=== PATIENT | male | born 1950 | race Caucasian/White ===

== ENCOUNTER → 2020-11-14 08:27 | Outpatient (BNVA) | payer MEDICARE, SELFPAY | PROVIDERS: PCP Internal Medicine; Visit Provider Orthopaedic Surgery | DX: S72.409A Unspecified fracture of lower end of unspecified femur, initial encounter for closed fracture (principal) | CPT/HCPCS: 99212 ==

== ENCOUNTER 2021-01-27 11:50 | Outpatient (REF) | payer MEDICARE, SELFPAY ==
--- NOTE | ~2021-01-27 | XR_ITS ---
EXAMINATION: XR CHEST CLINICAL INFORMATION: Cough, COPD COMPARISON: Prior chest November 2019, CT chest May 2020 TECHNIQUE: 2 views of the chest were obtained. FINDINGS: Stable postoperative changes consistent with prior upper lobectomy with pleural-parenchymal opacity/thickening better characterized on prior CT May 2020 but unchanged since the prior study. Minimal opacity at the left base, unchanged, compatible with fibrosis/post inflammatory change, stable. Lungs otherwise clear but consistent with underlying COPD. Calcification of the dorsal aorta. Cardiac silhouette normal in size. Postoperative changes noted in the lower cervical spine. XR/XR chest 2V IMPRESSION: Chronic and postoperative changes stable compared to prior chest x-ray November [address] May 2020.
[2021-01-27 13:11] LABS: MANUAL DIFF FLAG NO
[2021-01-27 13:24] LABS: Basophils Percent Auto 0.3 % (0-2); Eosinophils Absolute Auto 0.1 X10*3/uL (0.0-0.4); Eosinophils Percent Auto 1.7 % (0-4); Hematocrit 47.5 % (42-52); Hemoglobin 15.3 g/dl (14.0-18.0); Imm Gran Abs Auto 0.02 X10*3/uL (0.00-0.03); Imm Gran Pct Auto 0.3 % (0.0-0.4); Lymphocytes Percent Auto 13.2 % (20-40); Mean Corpuscular HGB Conc 32.2 g/dl (31.0-36.0); Mean Corpuscular Volume 93.1 fL (80-98); Mean Platelet Volume 11.3 fL (9.4-12.4); Monocytes Absolute Auto 0.6 X10*3/uL (0.1-1.2); Monocytes Percent Auto 7.9 % (2-11); Neutrophils Absolute Auto 5.9 X10*3/uL (2.0-8.3); Neutrophils Percent Auto 76.6 % (45-73); Platelet Count 195 X10*3/uL (160-400); Red Cell Distribution Width 13.2 % (11.0-16.0); White Blood Count 7.7 X10*3/uL (4.8-10.8)
[2021-01-27 13:39] LABS: Alanine Aminotransferase 12 U/L (0-40); Albumin Level 4.3 g/dL (3.5-5.0); Alkaline Phosphatase 37 U/L (39-117); Anion Gap 14 (12-20); Aspartate Amino Transferase 16 U/L (5-37); Bilirubin Total 0.5 mg/dL (0.0-1.0); Blood Urea Nitrogen 22 mg/dL (9-16); C Reactive Protein 0.95 mg/dL (< or = 0.50); Calcium 9.6 mg/dL (8.4-10.2); Carbon Dioxide 27 mmol/L (22-29); Chloride 102 mmol/L (96-108); Estimated Glomerular Filt Rate 52; Glucose Random 112 mg/dL (60-115); Potassium 4.9 mmol/L (3.3-5.1); Sodium 138 mmol/L (135-145); Total Protein 7.4 g/dL (6.5-8.0)
== END 2021-01-27 11:51 | disposition home or self-care (01) ==
LOC: HO.LAB 11:50
PROVIDERS: PCP Internal Medicine; Visit Provider Internal Medicine
DX: R05 Cough (principal); J44.9 Chronic obstructive pulmonary disease, unspecified; N18.9 Chronic kidney disease, unspecified; I73.9 Peripheral vascular disease, unspecified
CPT/HCPCS: 36415; 71046; 80053; 85025; 86140

== ENCOUNTER 2021-05-01 08:12 | Outpatient (REF) | payer MEDICARE, SELFPAY ==
--- NOTE | ~2021-05-01 | XR_ITS ---
EXAMINATION: XR KNEE, LEFT XR FEMUR, LEFT CLINICAL INFORMATION: Follow-up fracture COMPARISON: Radiographs left knee 10/29/2019, 04/30/2019, radiographs left femur 11/27/2017. TECHNIQUE: The left knee is imaged in AP, lateral, and axial patella views. The left femur is imaged in AP x3 and lateral views. There are a total of 7 views. FINDINGS: AP view upper femur suggests possible incomplete vertically oriented hairline fracture lateral aspect proximal femoral neck, 1.8 cm in length. There is horizontally oriented artifact overlying this area and finding could also be related to artifact. The lower femoral shaft fracture has been reduced with compression plate and multiple screws. Hardware is intact. There is mild stable posttraumatic deformity at the fracture site with no change in alignment. There is no destructive process or osteolysis. There has been prior total knee arthroplasty. The hardware is intact. There is no fracture or dislocation or destructive process. Again, there are are extensive calcifications vasculature likely combination of atherosclerotic changes and M?nckeberg medial calcific sclerosis.? XR/XR femur LT 2V IMPRESSION: 1. Fine linear lucency at superior lateral aspect proximal femoral neck representing incomplete fracture versus artifact. This may be further evaluated with formal plain films targeted to the left hip. 2. Old fracture lower femoral shaft. Hardware intact. No change in alignment. No destructive process. 3. Prior left knee arthroplasty. Hardware intact. No osteolysis.
--- NOTE | ~2021-05-01 | XR_ITS ---
EXAMINATION: XR KNEE, LEFT XR FEMUR, LEFT CLINICAL INFORMATION: Follow-up fracture COMPARISON: Radiographs left knee 10/29/2019, 04/30/2019, radiographs left femur 11/27/2017. TECHNIQUE: The left knee is imaged in AP, lateral, and axial patella views. The left femur is imaged in AP x3 and lateral views. There are a total of 7 views. FINDINGS: AP view upper femur suggests possible incomplete vertically oriented hairline fracture lateral aspect proximal femoral neck, 1.8 cm in length. There is horizontally oriented artifact overlying this area and finding could also be related to artifact. The lower femoral shaft fracture has been reduced with compression plate and multiple screws. Hardware is intact. There is mild stable posttraumatic deformity at the fracture site with no change in alignment. There is no destructive process or osteolysis. There has been prior total knee arthroplasty. The hardware is intact. There is no fracture or dislocation or destructive process. Again, there are are extensive calcifications vasculature likely combination of atherosclerotic changes and M?nckeberg medial calcific sclerosis.? XR/XR knee LT 2V IMPRESSION: 1. Fine linear lucency at superior lateral aspect proximal femoral neck representing incomplete fracture versus artifact. This may be further evaluated with formal plain films targeted to the left hip. 2. Old fracture lower femoral shaft. Hardware intact. No change in alignment. No destructive process. 3. Prior left knee arthroplasty. Hardware intact. No osteolysis.
== END 2021-05-01 08:13 | disposition home or self-care (01) ==
LOC: HO.HOSX 08:12
PROVIDERS: Visit Provider Orthopaedic Surgery
DX: I73.9 Peripheral vascular disease, unspecified (principal); M97.8XXA Periprosthetic fracture around other internal prosthetic joint, initial encounter; T84.84XA Pain due to internal orthopedic prosthetic devices, implants and grafts, initial encounter; Z96.652 Presence of left artificial knee joint; Z98.890 Other specified postprocedural states
CPT/HCPCS: 73552; 73560; 99212

== ENCOUNTER 2021-10-02 15:43 | Inpatient (IN) | payer MEDICARE, SELFPAY ==
[2021-10-02] VITALS (7 sets, daily range): BP systolic 83–111; BP diastolic 48–62; PULSE 76–102; RESP 22–28; TEMP 36.5–37.6; O2SAT 76–95; BMI 24.7
--- NOTE | 2021-10-02 | ECG_ITS ---
Test Reason : SOB Blood Pressure : / mmHG Vent. Rate : 090 BPM Atrial Rate : 090 BPM P-R Int : 178 ms QRS Dur : 090 ms QT Int : 334 ms P-R-T Axes : 059 036 044 degrees QTc Int : 408 ms Normal sinus rhythm Intra-ventricular conduction delay Otherwise normal ECG Abnormal ECG When compared with ECG of 27-NOV-2017 14:43, CT interval has decreased T wave amplitude has decreased in Anterior leads Referred By: Rin Nielsen Electronically Signed By:MALLY MILES MD
--- NOTE | ~2021-10-02 | XR_ITS ---
EXAMINATION: PORTABLE CHEST 1 VIEW CLINICAL INFORMATION: sob, copd, RUL lobectomy . COMPARISON: 01/27/2021. TECHNIQUE: Portable frontal view of the chest was obtained. FINDINGS: Extensive chronic appearing reticular markings are again seen. There is volume loss and stable right apical pleural thickening again seen. There is volume loss with retraction of the right mediastinal structures. Coarse reticular markings at the bases appear more prominent from the prior study. Cardiac mediastinal silhouettes within normal limits for size with vascular calcification in the aorta. Cervical spine hardware partially visualized. XR/XR chest 1V IMPRESSION: Although there are extensive chronic appearing changes seen, there are increased reticular markings at both lung bases. Etiology is uncertain. Atypical infectious etiology or mild interstitial edema superimposed on chronic changes could have this appearance and should be clinically correlated.
--- NOTE | ~2021-10-02 | CT_ITS ---
EXAMINATION: CTA CHEST PE STUDY CLINICAL INFORMATION: sob, hypoxic, elevated dimer, hx lung/throat CA COMPARISON: Directly compared to the 05/25/2020 CT scan TECHNIQUE: Prior to contrast administration, noncontrast localization images were obtained. After the administration of 71 mL of Omnipaque 350 nonionic IV contrast, contiguous thin slice helical images were obtained through the thorax. Reformatted MIP images in the coronal and sagittal planes were obtained at the acquisition workstation. This CT examination was performed using dose optimization techniques as appropriate, variously including the following: *Automated exposure control *Adjustment of mA and/or kV according to patient size (this includes techniques or standardized protocols for targeted exams where dose is matched to indication/reason for exam; i.e. extremities or head) *Use of iterative reconstruction technique DLP: 566 mGy-cm. FINDINGS: The bolus timing on this study was acceptable for visualization of the pulmonary arterial tree. There is unfortunately respiratory motion artifact obscuring the distal peripheral branches. There are no intraluminal pulmonary arterial filling defects present to suggest central pulmonary embolism. Although degraded by motion artifact, there is patchy airspace disease in both lung bases which is new from the prior study. This is superimposed on chronic emphysematous changes. Infectious etiology or even aspiration could have a similar appearance superimposed on these chronic changes. Right upper lobe is surgically absent. Pleural calcification seen on the right similar to the prior study. No new abnormal pulmonary nodules or masses are appreciated. No significant hilar or mediastinal adenopathy. Extensive vascular calcification in the aorta and coronary vessels. Small hiatal hernia. There is no evidence of pleural effusion or pneumothorax. The heart is normal in size. No evidence of ventricular septal bowing or right heart strain. Great vessels are normal. Otherwise the mediastinum is unremarkable. There is no pericardial effusion or pericardial thickening. Limited evaluation of the upper abdominal viscera is unremarkable. CT/CT angio chest PE protocol IMPRESSION: No evidence for central pulmonary emboli. There are is chronic appearing postoperative and emphysematous changes. When compared to the 05/25/2020 study there is new bibasilar dependent airspace disease left more so than right. Superimposed infectious etiology or even aspiration on chronic changes could have this appearance. Clinical correlation and follow-up would be recommended. VTE: Negative
--- NOTE | 2021-10-02 16:22 | ED_ITS ---
HPI - SOB/Dyspnea General Chief Complaint: Dyspnea Stated Complaint: COPD Exacerbation Time Seen by Provider: 10/02/21 16:07 Source: patient, family and EMS Mode of arrival: EMS Limitations: no limitations History of Present Illness HPI Narrative: Patient is brought to the emergency room complaining of shortness of breath, generalized malaise, fever, difficulty swallowing. Patient is a poor historian, patient's was helping him give history. Seems that patient has been having difficulty breathing for about a week now, increased cough. Patient has been previously diagnosed with COPD, does not have any inhalers at home. Patient states he schedule an appointment with his PCP today, but could be seen, instructed to come to the emergency room. Patient's states that the patient has been having fever up to 101 F, patient has been taking Tylenol every 4-6 hours for the fever. Patient complaining of shortness of breath, denies chest pain, no abdominal symptoms. According to EMS, when they arrived to the patient's residence, patient's oxygen saturation was 76 on room air. Patient did not receive any medications by EMS. Patient was started on a Venturi mask, 15 L, oxygen saturation improved to 90%. Patient states that he has history of throat cancer, has stents in the esophagus. Patient states that over the last couple of days, he has been trouble swallowing liquids and solids. Related Data Home Medications Medication Instructions Recorded Confirmed apixaban 5 mg tablet (Eliquis) 2.5 mg PO BID 11/14/20 10/02/21 aspirin 81 mg chewable tablet 81 mg PO DAILY 11/14/20 10/02/21 levothyroxine 25 mcg capsule 25 mcg PO DAILY 11/14/20 10/02/21 trazodone 50 mg tablet 50 mg PO BEDTIME 11/14/20 10/02/21 Allergies Allergy/AdvReac Type Severity Reaction Status Date / Time From [facility] Allergy Intermediate Foot drop Uncoded 05/01/21 10:36 as per patient Moxifloxacin HCl in NaCl Allergy Unknown drop foot Uncoded 05/01/21 10:36 Review of Systems Review of Systems: Constitutional : No Weight loss, complaining of fever, chills, fatigue and generalized malaise ENT/Mouth : No Hearing loss, No Ear Pain, No Nasal Congestion, No Sinus Pain, No Hoarseness, No sore throat, No Rhinorrhea, No Swallowing Difficulty Eyes: No Eye Pain, No Swelling, No Redness, No Foreign Body, No Discharge, No Vi christy Changes Cardiovascular : No Chest Pain, no lower extremity edema, no orthopnea, no palpitations Respiratory : Complaining of increased cough with sputum production, wheezing, worsening shortness of breath Gastrointestinal : No Nausea, No Vomiting, No Diarrhea, No Constipation, No abdominal Pain, No Hematochezia, No Melena Genitourinary : no irregular bleeding, No Dysuria, No Urinary Frequency, No Hematuria, No Urinary Incontinence, No Urgency, No Flank Pain, No Urinary Flow Changes, No Hesitancy Musculoskeletal : No joint pain, generalized Myalgias, No Joint Swelling Skin : No Skin Lesions, No rash Neuro : No Weakness, No Numbness, No Paresthesias, No Loss of Consciousness, No Dizziness, No Headache Psych : No Anxiety/Panic, No Depression, No SI/HI/AH/VH, No Social Issues, Heme/Lymph: No Bruising, No Bleeding,No Lymphadenopathy Endocrine : No Polyuria, No Polydipsia, No Temperature Intolerance [facility] Past Medical History Medical History (Updated 10/02/21 @ 19:31 by Rin Nielsen MD) Chronic sinusitis Claudication in peripheral vascular disease Hypercholesterolemia Lung cancer Throat cancer Surgical History H/O carotid endarterectomy H/O neck surgery History of carpal tunnel release History of knee surgery History of total left knee replacement S/P tonsillectomy Family History Family History Father No problems noted. Mother No problems noted. Social History Social History Alcohol intake: never Patient Tobacco Use Status: Former Tobacco user Use of substances other than those prescribed or required for medical reasons: No Advance Directives: No Advance Directives Information Provided: Yes Current occupational status: retired Current occupation: right handed Physical Exam Vital Signs: Vital Signs: Last Vital Signs Temp 98.5 F 10/02/21 19:02 Pulse 102 H 10/02/21 19:15 Resp 28 H 10/02/21 19:02 BP 89/53 L 10/02/21 19:15 Pulse Ox 90 L 11/15/21 19:02 Oxygen Flow Rate 14 10/02/21 16:05 Body Mass Index 24.7 Const: Other: Appearance: Alert. Oriented X3. No acute distress. Eyes: Pupils equal, round and reactive to light. ENT: Pharynx normal. Neck: Normal inspection. Neck supple. No lymph nodes noted. No crepitus CVS: Normal heart rate and rhythm. Pulses normal. Normal S1 and S2 Respiratory: Speaking in full sentences, oxygen saturation 90% on 15 L, decreased breath sounds bilaterally, very tight, minimal wheezing Abdomen: Soft and nontender. No rigidity. No distention. Skin: Skin warm and dry. Normal skin color. Normal skin turgor. Extremities: No lower extremity edema. No Lacerations. No Rash Neuro: Oriented X 3. No motor deficit. No sensory deficit. Moving all extermities. No slurred speech. Course Course Course Narrative: Patient's troponin is elevated. Patient has no chest pain. Troponin elevation likely secondary to prolonged period of hypoxia leading to demand ischemia. After DuoNeb, hour long nebulization treatment, Solu-Medrol, IV fluids, ceftriaxone and azithromycin, patient states that he is feeling much better. Patient is still on a Venturi mask, now saturating at 96%. On physical exam, patient is speaking in full sentences, mild bilateral wheezing, air movement improved. I was informed by the patient's nurse that blood pressure dropped to 89/53. Patient will be receiving more fluids. CTA is negative for PE, however it seems that patient does have patchy airway disease which is new for him. Patient was given ceftriaxone and azithromycin. Overall patient feels much better. I discussed the patient with Dr. Beaulieu, patient being admitted MDM - SOB/Dyspnea Lab Data Result diagrams: 10/02/21 16:40 10/02/21 16:40 Labs: Lab Results 10/02/21 10/02/21 10/02/21 Range/Units 16:40 16:40 16:40 WBC 6.9 (4.8-10.8) X10*3/uL RBC 4.72 (4.60-5.80) X10*6/uL Hgb 14.6 (14.0-18.0) g/dl Hct 43.7 (42.0-52.0) % MCV 92.6 (80.0-98.0) fL MCH 30.9 (27.0-33.0) pg MCHC 33.4 (31.0-36.0) g/dl RDW 13.6 (11.0-16.0) % Plt Count 132 L (160-400) X10*3/uL MPV 11.8 (9.4-12.4) fL Immature Gran % (Auto) 0.1 (0.0-0.4) % Neut % (Auto) 91.8 H (45-73) % Lymph % (Auto) 3.6 L (20-40) % Mcclain % (Auto) 4.5 (2-11) % Eos % (Auto) 0.0 (0-4) % Baso % (Auto) 0.0 (0-2) % Lymph # (Auto) 0.3 L (1.2-4.9) X10*3/uL Mcclain # (Auto) 0.3 (0.1-1.2) X10*3/uL Eos # (Auto) 0.0 (0.0-0.4) X10*3/uL Baso # (Auto) 0.0 (0.0-0.2) X10*3/uL Abs Immat Gran (auto) 0.01 (0.00-0.03) X10*3/uL Absolute Neuts (auto) 6.3 (2.0-8.3) x10*3/uL Absolute Nucleated RBC 0.000 (0.0-0.012) X10*3/uL Nucleated RBC % (auto) 0.0 (0.0-0.2) /100WBC Smear Tech's Comments VERIFIED D-Dimer NG/ML VBG pH (7.32-7.43) VBG pCO2 mmHg VBG pO2 mmHg VBG HCO3 (22-26) mmol/L VBG O2 Saturation % VBG Base Excess mmol/L Sodium 135 (135-145) mmol/L Potassium 4.2 (3.3-5.1) mmol/L Chloride 104 (96-108) mmol/L Carbon Dioxide 21 L (22-29) mmol/L Anion Gap 14 (12-20) BUN 23 H (9-16) mg/dL Creatinine 1.14 (0.5-1.4) mg/dL Estim Creat Clear Calc 72.0 Estimated GFR > 60 Random Glucose 137 H (60-115) mg/dL Lactic Acid 1.8 (0.5-2.0) mmol/L Calcium 7.7 L D (8.4-10.2) mg/dL Total Bilirubin 0.4 (0.0-1.0) mg/dL Direct Bilirubin 0.2 (0.0-0.5) mg/dL AST 26 D (5-37) U/L ALT 19 (0-40) U/L Alkaline Phosphatase 34 L (39-117) U/L Troponin I High Sens (<3.5-35.0) ng/L B-Natriuretic Peptide (<100) pg/mL Total Protein 6.1 L (6.5-8.0) g/dL Albumin 3.3 L D (3.5-5.0) g/dL COVID-19 (ROXY) (Negative) COVID-19 Clin Com 10/02/21 10/02/21 10/02/21 Range/Units 16:40 16:40 16:40 WBC (4.8-10.8) X10*3/uL RBC (4.60-5.80) X10*6/uL Hgb (14.0-18.0) g/dl Hct (42.0-52.0) % MCV (80.0-98.0) fL MCH (27.0-33.0) pg MCHC (31.0-36.0) g/dl RDW (11.0-16.0) % Plt Count (160-400) X10*3/uL MPV (9.4-12.4) fL Immature Gran % (Auto) (0.0-0.4) % Neut % (Auto) (45-73) % Lymph % (Auto) (20-40) % Mcclain % (Auto) (2-11) % Eos % (Auto) (0-4) % Baso % (Auto) (0-2) % Lymph # (Auto) (1.2-4.9) X10*3/uL Mcclain # (Auto) (0.1-1.2) X10*3/uL Eos # (Auto) (0.0-0.4) X10*3/uL Baso # (Auto) (0.0-0.2) X10*3/uL Abs Immat Gran (auto) (0.00-0.03) X10*3/uL Absolute Neuts (auto) (2.0-8.3) x10*3/uL Absolute Nucleated RBC (0.0-0.012) X10*3/uL Nucleated RBC % (auto) (0.0-0.2) /100WBC Smear Tech's Comments D-Dimer 624 NG/ML VBG pH (7.32-7.43) VBG pCO2 mmHg VBG pO2 mmHg VBG HCO3 (22-26) mmol/L VBG O2 Saturation % VBG Base Excess mmol/L Sodium (135-145) mmol/L Potassium (3.3-5.1) mmol/L Chloride (96-108) mmol/L Carbon Dioxide (22-29) mmol/L Anion Gap (12-20) BUN (9-16) mg/dL Creatinine (0.5-1.4) mg/dL Estim Creat Clear Calc Estimated GFR Random Glucose (60-115) mg/dL Lactic Acid (0.5-2.0) mmol/L Calcium (8.4-10.2) mg/dL Total Bilirubin (0.0-1.0) mg/dL Direct Bilirubin (0.0-0.5) mg/dL AST (5-37) U/L ALT (0-40) U/L Alkaline Phosphatase (39-117) U/L Troponin I High Sens 42.7 H* (<3.5-35.0) ng/L B-Natriuretic Peptide 61 (<100) pg/mL Total Protein (6.5-8.0) g/dL Albumin (3.5-5.0) g/dL COVID-19 (ROXY) Negative (Negative) COVID-19 Clin Com See Note 10/02/21 Range/Units 16:51 WBC (4.8-10.8) X10*3/uL RBC (4.60-5.80) X10*6/uL Hgb (14.0-18.0) g/dl Hct (42.0-52.0) % MCV (80.0-98.0) fL MCH (27.0-33.0) pg MCHC (31.0-36.0) g/dl RDW (11.0-16.0) % Plt Count (160-400) X10*3/uL MPV (9.4-12.4) fL Immature Gran % (Auto) (0.0-0.4) % Neut % (Auto) (45-73) % Lymph % (Auto) (20-40) % Mcclain % (Auto) (2-11) % Eos % (Auto) (0-4) % Baso % (Auto) (0-2) % Lymph # (Auto) (1.2-4.9) X10*3/uL Mcclain # (Auto) (0.1-1.2) X10*3/uL Eos # (Auto) (0.0-0.4) X10*3/uL Baso # (Auto) (0.0-0.2) X10*3/uL Abs Immat Gran (auto) (0.00-0.03) X10*3/uL Absolute Neuts (auto) (2.0-8.3) x10*3/uL Absolute Nucleated RBC (0.0-0.012) X10*3/uL Nucleated RBC % (auto) (0.0-0.2) /100WBC Smear Tech's Comments D-Dimer NG/ML VBG pH 7.45 H (7.32-7.43) VBG pCO2 25 mmHg VBG pO2 73 mmHg VBG HCO3 18 L (22-26) mmol/L VBG O2 Saturation 94.0 % VBG Base Excess -3.9 mmol/L Sodium (135-145) mmol/L Potassium (3.3-5.1) mmol/L Chloride (96-108) mmol/L Carbon Dioxide (22-29) mmol/L Anion Gap (12-20) BUN (9-16) mg/dL Creatinine (0.5-1.4) mg/dL Estim Creat Clear Calc Estimated GFR Random Glucose (60-115) mg/dL Lactic Acid (0.5-2.0) mmol/L Calcium (8.4-10.2) mg/dL Total Bilirubin (0.0-1.0) mg/dL Direct Bilirubin (0.0-0.5) mg/dL AST (5-37) U/L ALT (0-40) U/L Alkaline Phosphatase (39-117) U/L Troponin I High Sens (<3.5-35.0) ng/L B-Natriuretic Peptide (<100) pg/mL Total Protein (6.5-8.0) g/dL Albumin (3.5-5.0) g/dL COVID-19 (ROXY) (Negative) COVID-19 Clin Com Imaging Data Chest x-ray: Radiologist's impression: FINDINGS: Extensive chronic appearing reticular markings are again seen. There is volume loss and stable right apical pleural thickening again seen. There is volume loss with retraction of the right mediastinal structures. Coarse reticular markings at the bases appear more prominent from the prior study. Cardiac mediastinal silhouettes within normal limits for size with vascular calcification in the aorta. Cervical spine hardware partially visualized. XR/XR chest 1V IMPRESSION: Although there are extensive chronic appearing changes seen, there are increased reticular markings at both lung bases. Etiology is uncertain. Atypical infectious etiology or mild interstitial edema superimposed on chronic changes could have this appearance and should be clinically correlated. CTA for PE: Radiologist's impression: FINDINGS: The bolus timing on this study was acceptable for visualization of the pulmonary arterial tree. There is unfortunately respiratory motion artifact obscuring the distal peripheral branches. There are no intraluminal pulmonary arterial filling defects present to suggest central pulmonary embolism. Although degraded by motion artifact, there is patchy airspace disease in both lung bases which is new from the prior study. This is superimposed on chronic emphysematous changes. Infectious etiology or even aspiration could have a similar appearance superimposed on these chronic changes. Right upper lobe is surgically absent. Pleural calcification seen on the right similar to the prior study. No new abnormal pulmonary nodules or masses are appreciated. No significant hilar or mediastinal adenopathy. Extensive vascular calcification in the aorta and coronary vessels. Small hiatal hernia. There is no evidence of pleural effusion or pneumothorax. The heart is normal in size. No evidence of ventricular septal bowing or right heart strain. Great vessels are normal. Otherwise the mediastinum is unremarkable.? There is no pericardial effusion or pericardial thickening. Limited evaluation of the upper abdominal viscera is unremarkable. CT/CT angio chest PE protocol IMPRESSION: No evidence for central pulmonary emboli. There are is chronic appearing postoperative and emphysematous changes. When compared to the 05/25/2020 study there is new bibasilar dependent airspace disease left more so than right. Superimposed infectious etiology or even aspiration on chronic changes could have this appearance. Clinical correlation and follow-up would be recommended. ? VTE: Negative ECG Data Attestation: I personally reviewed and interpreted this ECG as follows: (Normal sinus rhythm, 90, ST segment depression or elevation, no T-wave inversion, QTC 408) Critical Care Time Critical Care Time Critical Care Time: Yes Total Critical Care Time: 60 Attestation: 60 minutes were spent in direct patient care and stabilization. Discharge Plan Discharge Clinical Impression: COPD exacerbation, Pneumonia, Decreased oral intake Patient Disposition: Admitted As Inpatient
[2021-10-02] MEDS: methylPREDNISolone Sod Succ 125 MG/2 ML VIAL IVPUSH (16:28)
[2021-10-02] MEDS: Magnesium Sulfate/H2O 2 GM/50 ML PIGGYBACK IV (16:28)
[2021-10-02] MEDS: 0.9 % Sodium Chloride 1,000 ML 999 ML IVCONT ×4 (16:29→19:15)
[2021-10-02] MEDS: Albuterol/Iprat 2.5/0.5MG 3 ML AMPUL.NEB INHALE (16:41)
[2021-10-02] MEDS: Albuterol Sulfate (0.083%) 2.5 MG/3 ML VIAL.NEB 10 MG INHALE (16:41)
[2021-10-02 16:50] LABS: Hemoglobin 14.6 g/dl (14.0-18.0); MANUAL DIFF FLAG SCAN; Mean Corpuscular Volume 92.6 fL (80.0-98.0); PLT CLUMP 1; SCAN SMEAR FLAG 1
[2021-10-02 16:52] LABS: Hematocrit 43.7 % (42.0-52.0); Imm Gran Abs Auto 0.01 X10*3/uL (0.00-0.03); Imm Gran Pct Auto 0.1 % (0.0-0.4); Lymphocytes Absolute Auto 0.3 X10*3/uL (1.2-4.9); Lymphocytes Percent Auto 3.6 % (20-40); Mean Corpuscular HGB Conc 33.4 g/dl (31.0-36.0); Mean Corpuscular Hemoglobin 30.9 pg (27.0-33.0); Mean Platelet Volume 11.8 fL (9.4-12.4); Monocytes Absolute Auto 0.3 X10*3/uL (0.1-1.2); Monocytes Percent Auto 4.5 % (2-11); Neutrophils Absolute Auto 6.3 x10*3/uL (2.0-8.3); Neutrophils Percent Auto 91.8 % (45-73); Red Blood Count 4.72 X10*6/uL (4.60-5.80); Red Cell Distribution Width 13.6 % (11.0-16.0); White Blood Count 6.9 X10*3/uL (4.8-10.8)
[2021-10-02] MEDS: cefTRIAXone sodium 1 GM in 0.9 % Sodium Chloride 50 ML IV (16:53)
[2021-10-02 16:57] LABS: VBG Base Excess -3.9 mmol/L; VBG HCO3 18 mmol/L (22-26); VBG pCO2 25 mmHg; VBG pH 7.45 (7.32-7.43); VBG pO2 73 mmHg
[2021-10-02 16:58] LABS: Venous Blood Gas Refer to POC result
[2021-10-02 16:58] LABS: D Dimer 624 NG/ML; Lactic Acid 1.8 mmol/L (0.5-2.0)
[2021-10-02 17:02] LABS: Alanine Aminotransferase 19 U/L (0-40); Albumin Level 3.3 g/dL (3.5-5.0); Alkaline Phosphatase 34 U/L (39-117); Anion Gap 14 (12-20); Aspartate Amino Transferase 26 U/L (5-37); Bilirubin Direct 0.2 mg/dL (0.0-0.5); Bilirubin Total 0.4 mg/dL (0.0-1.0); Blood Urea Nitrogen 23 mg/dL (9-16); Calcium 7.7 mg/dL (8.4-10.2); Carbon Dioxide 21 mmol/L (22-29); Chloride 104 mmol/L (96-108); Estimated Glomerular Filt Rate > 60; Glucose Random 137 mg/dL (60-115); Potassium 4.2 mmol/L (3.3-5.1); Sodium 135 mmol/L (135-145); Total Protein 6.1 g/dL (6.5-8.0)
--- NOTE | 2021-10-02 17:11 | PHA.MEDREC ---
Pharmacy Consult ? Medication Reconciliation Pharmacy has completed the medication reconciliation.
[2021-10-02 17:14] LABS: COVID-19 Test Negative (Negative); IDNOW Serial# 9DD0AD1C
[2021-10-02 17:24] LABS: B Type Natriuretic Peptide 61 pg/mL (<100); Platelet Count 132 X10*3/uL (160-400); SLIDE REVIEW VERIFIED; Troponin-I High Sensitivity 42.7 ng/L (<3.5-35.0)
[2021-10-02] MEDS: Azithromycin 500 MG in 0.9 % Sodium Chloride 250 ML 125 MG IV (17:47)
[2021-10-02] MEDS: iohexoL 350 MG/ML 100 ML INFUS..BTL IV (18:08)
--- NOTE | 2021-10-02 19:19 | PC.NURSE ---
Addendum entered by Lizet Orozco 10/02/21 19:22: Pt provided with bedside urinal to obtain urine sample. Original Note: This RN at bedside. Pt found resting in bed with at bedside. Pt noted to be hypotensive @ 80/50, notified. Orders for 2 lis of NS obtained and hung per JAN. Pt on a venti mask @ 14 li and 55%, denies SOB, weakness, fatigue, dizziness @ this time. Call noel within reach, awaiting CT results, continue to monitor.
--- NOTE | 2021-10-02 19:22 | PC.NURSE ---
at bedside for eval.
--- NOTE | 2021-10-02 21:25 | PC.NURSE ---
PT found resting in bed, rapid respirations 24-30/min, and skin diaphoretic. PT woken up and presents with no complaints of SOB. BP remains hypotensive with fluids completely infused. Provider notified of low BP.
--- NOTE | 2021-10-02 22:35 | PC.NURSE ---
PT was asked if he could provide urine sample but stated that he still could not urinate.
--- NOTE | 2021-10-02 23:31 | PM.IMHP ---
History of Present Illness Date of Service: 10/02/21 Chief Complaint: SOB 71-year-old male with past medical history of COPD, hypothyroidism, history of lung cancer post right lobectomy, throat cancer, 0 presents to the hospital with complaints of shortness of breath cough, sputum production. Patient reports that his symptoms are about 3-4 days ago, associated with subjective fevers and chills, denies any nausea or vomiting, no chest pain, no abdominal pain, no diarrhea constipation, no urinary symptoms and no lower extremity edema. To the ED patient found to have temp of 98.5?, heart rate of 102, respiratory rate of 28, blood pressure of 88/53 that responded well to fluids, satting 90% on Venturi mask 4.6, hemoglobin of 13, pH of 7.45, BUN of 19, calcium 7.1, troponin of 42 that peaked to 75, with no chest pain, Normal sinus rhythm, with some nonspecific changes CT angiogram shows no evidence of PE, chronic appearing postoperative and emphysematous changes, there is a new bibasilar are dependent airspace disease left more so than right, superimposed infectious etiology or even aspiration on chronic changes could have this appearance. Patient will be admitted for further management Review of Systems Review of Systems: Yes all other systems are reviewed and are negative [facility] Medical History Chronic sinusitis Claudication in peripheral vascular disease Hypercholesterolemia Lung cancer Throat cancer Family History Father No problems noted. Mother No problems noted. Surgical History H/O carotid endarterectomy H/O neck surgery History of carpal tunnel release History of knee surgery History of total left knee replacement S/P tonsillectomy Social History Alcohol intake: never Patient Tobacco Use Status: Former Tobacco user Use of substances other than those prescribed or required for medical reasons: No Advance Directives: No Advance Directives Information Provided: Yes Current occupational status: retired Current occupation: right handed Meds Allergies Allergy/AdvReac Type Severity Reaction Status Date / Time moxifloxacin Allergy Numbness Verified 10/03/21 00:20 From [facility] Allergy Intermediate Foot drop Uncoded 05/01/21 10:36 as per patient Moxifloxacin HCl in NaCl Allergy Unknown drop foot Uncoded 05/01/21 10:36 Active Medications: Current Medications Pharmacy Consult (Consult Rx Perform Med Rec) 1 each MISCELLANE ONCE PRN PRN Reason: Consult order Home Medications Medication Instructions Recorded Confirmed Last Taken Type apixaban 5 mg tablet (Eliquis) 2.5 mg PO BID 11/14/20 10/02/21 09/30/21 History aspirin 81 mg chewable tablet 81 mg PO DAILY 11/14/20 10/02/21 09/30/21 History levothyroxine 25 mcg capsule 25 mcg PO DAILY 11/14/20 10/02/21 09/30/21 History trazodone 50 mg tablet 50 mg PO BEDTIME 11/14/20 10/02/21 09/30/21 History Physical Exam Vital Signs and Narrative: Vital Signs: Last Vital Signs Temp 97.7 F 10/02/21 22:32 Pulse 83 10/02/21 22:32 Resp 25 H 10/02/21 22:32 BP 108/59 L 10/02/21 22:32 Pulse Ox 90 L 10/02/21 22:32 Oxygen Flow Rate 14 10/02/21 16:05 Body Mass Index 24.7 Const: General: cooperative and no acute distress Orientation/consciousness: patient oriented x3 Eyes: General: appearance normal, both eyes and all related structures Pupils: Equal, round and reactive pupils present Resp: Other: Expiratory wheezing, rhonchi bilaterally Effort & Inspection: normal respiratory effort Auscultation: clear to auscultation bilaterally Cardio: Rate: regular rate Rhythm: regular rhythm GI: Palpation (GI): Soft to palpation Auscultation: normal bowel sounds Skin: General skin exam: no rashes or lesions noted Neuro: General: patient oriented x3 Cranial nerves: Yes Equal, round and reactive pupils present Cognition (Neuro): normal cognition Extrem: General: Yes normal to inspection and Yes no pedal edema Results Labs CBC and Chem 7: 10/03/21 04:09 10/03/21 04:09 Labs: Laboratory Results - last 24 hr 10/02/21 10/02/21 10/02/21 16:40 16:40 16:40 MCV 92.6 MCH 30.9 MCHC 33.4 RDW 13.6 Plt Count 132 L MPV 11.8 Immature Gran % (Auto) 0.1 Neut % (Auto) 91.8 H Lymph % (Auto) 3.6 L [place] % (Auto) 4.5 Eos % (Auto) 0.0 Baso % (Auto) 0.0 Lymph # (Auto) 0.3 L [place] # (Auto) 0.3 Eos # (Auto) 0.0 Baso # (Auto) 0.0 Abs Immat Gran (auto) 0.01 Absolute Neuts (auto) 6.3 Absolute Nucleated RBC 0.000 Nucleated RBC % (auto) 0.0 Smear Tech's Comments VERIFIED D-Dimer VBG pH VBG pCO2 VBG pO2 VBG HCO3 VBG O2 Saturation VBG Base Excess Anion Gap 14 Estim Creat Clear Calc 72.0 Estimated GFR > 60 Random Glucose 137 H Lactic Acid 1.8 Calcium 7.7 L D Total Bilirubin 0.4 Direct Bilirubin 0.2 AST 26 D ALT 19 Alkaline Phosphatase 34 L Troponin I High Sens B-Natriuretic Peptide Total Protein 6.1 L Albumin 3.3 L D COVID-19 (ROXY) [employer] 10/02/21 10/02/21 10/02/21 16:40 16:40 16:40 MCV MCH MCHC RDW Plt Count MPV Immature Gran % (Auto) Neut % (Auto) Lymph % (Auto) [place] % (Auto) Eos % (Auto) Baso % (Auto) Lymph # (Auto) [place] # (Auto) Eos # (Auto) Baso # (Auto) Abs Immat Gran (auto) Absolute Neuts (auto) Absolute Nucleated RBC Nucleated RBC % (auto) Smear Tech's Comments D-Dimer 624 VBG pH VBG pCO2 VBG pO2 VBG HCO3 VBG O2 Saturation VBG Base Excess Anion Gap Estim Creat Clear Calc Estimated GFR Random Glucose Lactic Acid Calcium Total Bilirubin Direct Bilirubin AST ALT Alkaline Phosphatase Troponin I High Sens 42.7 H* B-Natriuretic Peptide 61 Total Protein Albumin COVID-19 (ROXY) Negative [employer] See Note 10/02/21 16:51 MCV MCH MCHC RDW Plt Count MPV Immature Gran % (Auto) Neut % (Auto) Lymph % (Auto) [place] % (Auto) Eos % (Auto) Baso % (Auto) Lymph # (Auto) [place] # (Auto) Eos # (Auto) Baso # (Auto) Abs Immat Gran (auto) Absolute Neuts (auto) Absolute Nucleated RBC Nucleated RBC % (auto) Smear Tech's Comments D-Dimer VBG pH 7.45 H VBG pCO2 25 VBG pO2 73 VBG HCO3 18 L VBG O2 Saturation 94.0 VBG Base Excess -3.9 Anion Gap Estim Creat Clear Calc Estimated GFR Random Glucose Lactic Acid Calcium Total Bilirubin Direct Bilirubin AST ALT Alkaline Phosphatase Troponin I High Sens B-Natriuretic Peptide Total Protein Albumin COVID-19 (ROXY) COVID-19 Clin Com ECG Interpretation: Normal sinus rhythm with nonspecific ST T wave changes Imaging Radiologist's Impressions: Impressions Chest X-Ray 10/02/21 16:19 IMPRESSION: Although there are extensive chronic appearing changes seen, there are increased reticular markings at both lung bases. Etiology is uncertain. Atypical infectious etiology or mild interstitial edema superimposed on chronic changes could have this appearance and should be clinically correlated. Chest CTA 10/02/21 17:07 IMPRESSION: No evidence for central pulmonary emboli. There are is chronic appearing postoperative and emphysematous changes. When compared to the 05/25/2020 study there is new bibasilar dependent airspace disease left more so than right. Superimposed infectious etiology or even aspiration on chronic changes could have this appearance. Clinical correlation and follow-up would be recommended. VTE: Negative Assessment and Plan (1) COPD exacerbation: Status: Acute (2) Pneumonia: Status: Acute (3) Sepsis: Status: Acute (4) Acute respiratory failure with hypoxia: Status: Acute 71-year-old male with past medical history of COPD who presents to the hospital with complaints of shortness of breath, cough, sputum production found to have pneumonia as well as COPD exacerbation # sepsis - secondary to COPD exacerbation as well as pneumonia - has leukopenia, tachycardia, tachypnea - started on IV antibiotics - follow cultures - normal lactic acid # acute hypoxic respiratory failure - multifactor secondary to COPD as well as pneumonia - requiring 55% venturi mask - no evidence of COVID infection - will obtain respiratory viral panel - titrate oxygen down as tolerated # COPD exacerbation - dyspnea, cough, increased sputum production - complicated by pneumonia - was her patient on Solu-Medrol 40 IV b.i.d., DuoNeb p.r.n. and scheduled - monitor respiratory status # pneumonia - has bilateral pneumonia - COVID-19 negative - will start on IV antibiotic - follow-up cultures -RVP panel pending - will obtain strep and Legionella antigens # hypothyroidism - continue levothyroxine # history of lung and throat cancer - patient on apixaban with no other indication than the above - denies any history of VTE, and no history of irregular rhythm - will continue apixaban DVT prophylaxis: Apixaban Quality Stroke Does the patient have a stroke diagnosis?: No VTE Prior VTE?: No VTE Risk Level:: Medical - moderate - high VTE Device Contraindication: Treatment Not Indicated VTE Drug Contraindication: N/A - Med Ordered
[2021-10-03] VITALS (13 sets, daily range): BP systolic 91–159; BP diastolic 48–85; PULSE 64–86; RESP 18–28; TEMP 36.2–36.6; O2SAT 87–96
[2021-10-03] MEDS: 0.9 % Sodium Chloride 500 ML IV (00:03)
--- NOTE | 2021-10-03 01:14 | PC.NURSE ---
This RN called pharmacy regarding pt's solumedrol dose and requested to re-time dose based off of last dose given.
[2021-10-03] MEDS: 0.9 % Sodium Chloride Flush 3 ML SYRINGE IVFLUSH ×4 (01:21→20:30)
[2021-10-03] MEDS: traZODone HCL 50 MG TABLET PO ×2 (01:21→20:30)
[2021-10-03] MEDS: Apixaban 2.5 MG TABLET PO ×3 (01:21→20:30)
[2021-10-03 01:45] LABS: Troponin-I High Sensitivity 75.4 ng/L (<3.5-35.0)
--- NOTE | 2021-10-03 03:51 | PC.NURSE ---
PT continues to hypotensive on the monitor. Provider made aware. Hospitalist advised to continue to monitor. Troponin elevated on repeat lab. Provider ordered a third trop to be drawn.
[2021-10-03 04:23] LABS: Hematocrit 40.2 % (42.0-52.0); Imm Gran Abs Auto 0.02 X10*3/uL (0.00-0.03); Imm Gran Pct Auto 0.4 % (0.0-0.4); Lymphocytes Absolute Auto 0.3 X10*3/uL (1.2-4.9); Lymphocytes Percent Auto 5.4 % (20-40); MANUAL DIFF FLAG SCAN; Mean Corpuscular HGB Conc 32.3 g/dl (31.0-36.0); Mean Corpuscular Hemoglobin 30.9 pg (27.0-33.0); Mean Corpuscular Volume 95.5 fL (80.0-98.0); Monocytes Absolute Auto 0.1 X10*3/uL (0.1-1.2); Monocytes Percent Auto 2.2 % (2-11); Neutrophils Absolute Auto 4.3 x10*3/uL (2.0-8.3); Platelet Count 122 X10*3/uL (160-400); Red Blood Count 4.21 X10*6/uL (4.60-5.80); SCAN SMEAR FLAG 1; White Blood Count 4.6 X10*3/uL (4.8-10.8)
[2021-10-03 04:25] LABS: SLIDE REVIEW VERIFIED
[2021-10-03 04:55] LABS: Anion Gap 11 (12-20); Blood Urea Nitrogen 19 mg/dL (9-16); Calcium 7.1 mg/dL (8.4-10.2); Carbon Dioxide 21 mmol/L (22-29); Chloride 111 mmol/L (96-108); Creatinine Clr Calc Pharmacy 85.5; Estimated Glomerular Filt Rate > 60; Glucose Random 220 mg/dL (60-115); Potassium 4.7 mmol/L (3.3-5.1); Sodium 138 mmol/L (135-145)
[2021-10-03 05:03] LABS: Troponin-I High Sensitivity 64.2 ng/L (<3.5-35.0)
--- NOTE | 2021-10-03 05:44 | PC.NURSE ---
PT is sleeping in bed, in NAD. VSS at this time. Results for troponin came back, hospitalist notified.
[2021-10-03] MEDS: Levothyroxine Sodium 25 MCG TABLET PO (05:46)
[2021-10-03] MEDS: methylPREDNISolone Sod Succ 40 MG/ML VIAL IVPUSH ×2 (05:47→16:39)
[2021-10-03 07:11] LABS: Appearance Urine CLEAR; Color Urine YELLOW; Glucose Urine UA 100 MG/DL (NEG); Leukocyte Esterase Urine NEG (NEG); Nitrite Urine NEG (NEG); PH 5.5 (5.0-8.0); UACC Culture Trigger NO; Urine Blood NEG (NEG); Urine Ketones NEG (NEG); Urine Protein 1+ MG/DL (NEG-TRACE)
[2021-10-03 07:38] LABS: Bacteria Urine 1+ /LPF; RBC Urine 0 /HPF (0); WBC Urine 0-2 /HPF (0-4)
[2021-10-03] MEDS: Aspirin 81 MG TAB.CHEW PO (08:48)
[2021-10-03 09:39] LABS: Adenovirus PCR Not Detected (Not Detect.); Bordetella parapertussis PCR Not Detected (Not Detect.); Bordetella pertussis PCR Not Detected (Not Detect.); Chlamydia pneumoniae PCR Not Detected (Not Detect.); Coronavirus 229E PCR Not Detected (Not Detect.); Coronavirus HKU1 PCR Not Detected (Not Detect.); Coronavirus NL63 PCR Not Detected (Not Detect.); Coronavirus OC43 PCR Not Detected (Not Detect.); Human metapneumovirus PCR Not Detected (Not Detect.); Influenza A PCR Not Detected (Not Detect.); Influenza B PCR Not Detected (Not Detect.); Mycoplasma pneumoniae PCR Not Detected (Not Detect.); Parainfluenza 1 PCR Not Detected (Not Detect.); Parainfluenza 2 PCR Not Detected (Not Detect.); Parainfluenza 3 PCR Not Detected (Not Detect.); Parainfluenza 4 PCR Not Detected (Not Detect.); RSV PCR Not Detected (Not Detect.); Rhino/Enterovirus PCR Not Detected (Not Detect.); SARS-CoV-2 PCR Not Detected (Not Detect.)
--- NOTE | 2021-10-03 10:55 | MHC.CM.PN ---
PATIENT LIVES WITH HIS SPOUSE. HE IS UNSURE IF HE HAS A HCP AND AGREES TO ASSIGN ONE WHILE HERE. AGENT IS JOSE PATIENT IS 100% DISABLED. HE USES [facility] AT [facility]. HE HAS BEEN COVID VACCINATED IN JANUARY AND FEBRUARY 2021 BUT DOES NOT REMEMBER THE DATES. HE REPORTS THAT ONCE HE IS FEELING BETTER, HE WILL GET HIS BOOSTER SHOT HE WAS VACCINATED AGAINST THE FLU LAST WEEK. NO NO VNA IN THE HOME. AND PATIENT ARE REQUESTING A PULMONARY CONSULT. EXPRESSES FRUSTRATION OVER ASKING MULTIPLE PROVIDERS FOR HELP AND GETTING NOWHERE IMM 10/03 IN CHART
[2021-10-03] MEDS: Albuterol/Iprat 2.5/0.5MG 3 ML AMPUL.NEB INHALE ×2 (11:30→19:56)
--- NOTE | 2021-10-03 14:00 | CA_ITS ---
Transthoracic Echocardiogram Patient (Last, First, Middle): Daniel Encarnacion D Gender: Male Date of : 1950 Age: 71 Procedure Date: 10/03/2021 Procedure Type: Transthoracic Echocardiogram Location: ER Height: 190.5 cm Weight: 89.81 kg BSA: 2.19 m2 Heart Rate: bpm BP: 148 / 68 mmHg Powerhouse Oiler: Referring MD: Richardson Pederson MD Symptoms: elevated troponins Study Quality: Fair ECG Rhythm: Sinus Conclusions: - Normal left ventricular size and systolic function. - There is no evidence of regional wall motion abnormalities. - Normal right ventricular cavity size and systolic function. - There is mild aortic valve stenosis. The peak aortic velocity is 2.63 m/s. The mean gradient is 16 mmHg. The aortic valve area is 1.20 cm2. Findings Left Ventricle Normal left ventricular size and systolic function. There is mildly increased left ventricular wall thickness. The visually estimated ejection fraction is between 65-70%. There is no evidence of regional wall motion abnormalities. Abnormal diastolic function is noted. Spectral Doppler is indicative of an impaired relaxation filling pattern. E/E prime ratio is between 8 and 15 consistent with indeterminate filling pressures. Right Ventricle Normal right ventricular cavity size and systolic function. Atria The left atrium is normal in size. Aortic Valve The aortic valve was not well visualized. There is mild aortic valve stenosis. The peak aortic velocity is 2.63 m/s. The mean gradient is 16 mmHg. The aortic valve area is 1.20 cm2. There is no aortic valve regurgitation. Mitral Valve Normal mitral valve structure and function. There is no mitral valve regurgitation. There is no mitral valve stenosis. Pulmonic Valve The pulmonic valve was not well visualized. Tricuspid Valve Normal tricuspid valve structure. There is trace tricuspid valve regurgitation. Tricuspid regurgitation envelope is inadequate for calculation of right ventricular systolic pressure. Indeterminate right atrial pressure. Great Vessels All visible segments of the aorta are normal in size. The pulmonary artery was not well visualized. Venous The inferior vena cava was not well visualized. Pericardium/Pleural There is no evidence of pericardial effusion. Prior Study Comparison No prior study available for comparison. Measurements 2D Linear Measurements IVSd: 1.25 0.6-0.9/0.6-1.0 cm LVIDd: 4.21 3.9-5.3/4.2-5.9 cm LVIDd Index: 1.92 2.4-3.2/2.2-3.1 cm/m2 LVIDs: 2.72 2.0-3.6 cm LVPWd: 1.27 0.7-1.1 cm Ao Root: 3.20 2.1-3.5 cm LA Diam: 3.20 2.7-3.8/3.0-4.0 cm LAIDs Index: 1.46 1.5-2.3 cm/m2 LV Mass: 239.41 67-162/88-224 g LV Mass Index: 109.32 43-95/49-115 g/m2 LVOT Diam: 2.00 3.0+(-)1.3 cm 2D Systolic Function EF 4C: 67.70 >55% EF 2C: 67.10 >55% EF BiP: 66.10 >55% Mitral Valve MV Pk E: 0.58 MV PK A: 0.90 MV Decel Time: 160.00 E/A: 0.60 E'Lateral: 6.42 E'Medial: 5.55 E/E' Med: 10.40 E/E' Lat: 9.00 PHT: 47.00 MVA PHT: 4.68 Decel [place]: 3.62 Aortic Valve AoV Pk Ken: 2.63 AoV Mn Ken: 1.87 AoV VTI: 0.67 AoV Pk Grad: 28.00 Aov Mn Grad: 16.00 DAVID Cont.VTI: 1.20 LVOT LVOT Pk Ken: 0.75 LVOT Mn Ken: 0.53 LVOT VTI: 0.26 LVOT Pk Grad: 2.00 LVOT Mn Grad: 1.00 LVOT Diam: 2.00 LVOT Area: 3.14 Diastolic Function MV Pk E: 0.58 MV Pk A: 0.90 E/A: 0.60 E'Medial: 5.55 E/E' Med: 10.40 E' Laterial: 6.42 E/E' Lat: 9.00 Tricuspid Valve TR Pk Ken: 1.47 TR Pk Grad: 9.00 Great Vessels Aorta Ao Root-2D: 3.20 2.0-3.7 cm Ao Asc: 3.30 2.1-3.4 cm Pulmonary Valve PV Pk Ken: 0.79 Peak PV Grad: 2.00 Updated in Other Vendor System with Status of Final Gregory Mercer MD electronically signed on 10/03/2021 4:12:30 PM with status of Final
--- NOTE | 2021-10-03 14:06 | HO.PM.IMPN ---
Subjective Subjective Date of Service: 10/03/21 Interval History: Sepsis, acute hypoxemic respiratory failure. Review of Systems Shortness of breath seems to be slowly improving Has cough Denies any nausea vomiting or abdominal pain or fever. Physical Exam Vital Signs: Vital Signs: Last Vital Signs Temp 97.7 F 10/02/21 22:32 Pulse 77 10/03/21 14:02 Resp 22 H 10/03/21 14:02 BP 134/70 10/03/21 14:02 Pulse Ox 94 10/03/21 14:02 Oxygen Flow Rate 14 10/02/21 16:05 Body Mass Index 24.7 Constitutional: Alert.? Oriented X3.? No acute distress.? Eyes: Pupils equal, round and reactive to light. CVS: Normal heart rate and rhythm.? Pulses normal. Normal S1 and S2 Respiratory:? Speaking in full sentences, on oxygen, decreased breath sounds bilaterally, very tight, minimal wheezing Abdomen: Soft and nontender. No rigidity. No distention. Skin: Skin warm and dry.? Normal skin color.? Normal skin turgor. Extremities: No lower extremity edema.? No Lacerations. No Rash Neuro: Oriented X 3.? No motor deficit.? No sensory deficit. Moving all extermities. No slurred speech. Objective Data Active Medications Acetaminophen (Acetaminophen 325 Mg Tablet) 650 mg PO Q6H PRN PRN Reason: Pain, Mild (Pain Scale 1-3) Albuterol/Ipratropium (Albuterol/Iprat 2.5/0.5mg 3 Ml Ampul.Neb) 3 ml INHALE RQ4H PRN PRN Reason: Shortness of Breath/Wheezing Albuterol/Ipratropium (Albuterol/Iprat 2.5/0.5mg 3 Ml Ampul.Neb) 3 ml INHALE RQ4H WHILE AWAKE [facility] Last Admin: 10/03/21 11:30 Dose: 3 ml Documented by: PASCUAL Apixaban (Apixaban 2.5 Mg Tablet) 2.5 mg PO BID [facility] Last Admin: 10/03/21 08:48 Dose: 2.5 mg Documented by: TRAVIS Aspirin (Aspirin 81 Mg Tab.Chew) 81 mg PO DAILY [facility] Last Admin: 10/03/21 08:48 Dose: 81 mg Documented by: TRAVIS Docusate Sodium (Docusate Sodium 100 Mg Capsule) 100 mg PO DAILY PRN PRN Reason: Constipation Ceftriaxone Sodium 1 gm/ (Sodium Chloride) 50 mls @ 100 mls/hr IV Q24H [facility] Azithromycin 500 mg/ Sodium (Chloride) 250 mls @ 125 mls/hr IV Q24H [facility] Levothyroxine Sodium (Levothyroxine Sodium 25 Mcg Tablet) 25 mcg PO DAILY@0600 [facility] Last Admin: 10/03/21 05:46 Dose: 25 mcg Documented by: STORMY Methylprednisolone Sodium Succinate (Methylprednisolone Sod Succ 40 Mg/Ml Vial) 40 mg IVPUSH Q12H [facility] Last Admin: 10/03/21 05:47 Dose: 40 mg Documented by: STORMY Ondansetron HCl (Ondansetron Hcl 4 Mg/2 Ml Vial) 4 mg IVPUSH Q8H PRN PRN Reason: Nausea and Vomiting Pharmacy Consult (Consult Rx Perform Med Rec) 1 each MISCELLANE ONCE PRN PRN Reason: Consult order Sodium Chloride (0.9 % Sodium Chloride Flush 3 Ml Syringe) 3 ml IVFLUSH QSHIFT [facility] Last Admin: 10/03/21 08:54 Dose: 3 ml Documented by: TRAVIS Trazodone HCl (Trazodone Hcl 50 Mg Tablet) 50 mg PO BEDTIME [facility] Last Admin: 10/03/21 01:21 Dose: 50 mg Documented by: STORMY Labs CBC & Chem 7: 10/03/21 04:09 10/03/21 04:09 Labs: Laboratory Results - last 24 hr 10/02/21 10/02/21 10/02/21 16:40 16:40 16:40 MCV 92.6 MCH 30.9 MCHC 33.4 RDW 13.6 Plt Count 132 L MPV 11.8 Immature Gran % (Auto) 0.1 Neut % (Auto) 91.8 H Lymph % (Auto) 3.6 L [place] % (Auto) 4.5 Eos % (Auto) 0.0 Baso % (Auto) 0.0 Lymph # (Auto) 0.3 L [place] # (Auto) 0.3 Eos # (Auto) 0.0 Baso # (Auto) 0.0 Abs Immat Gran (auto) 0.01 Absolute Neuts (auto) 6.3 Absolute Nucleated RBC 0.000 Nucleated RBC % (auto) 0.0 Smear Tech's Comments VERIFIED D-Dimer VBG pH VBG pCO2 VBG pO2 VBG HCO3 VBG O2 Saturation VBG Base Excess Anion Gap 14 Estim Creat Clear Calc 72.0 Estimated GFR > 60 Random Glucose 137 H Lactic Acid 1.8 Calcium 7.7 L D Total Bilirubin 0.4 Direct Bilirubin 0.2 AST 26 D ALT 19 Alkaline Phosphatase 34 L Troponin I High Sens B-Natriuretic Peptide Total Protein 6.1 L Albumin 3.3 L D Urine Color Urine Appearance Urine pH Ur Specific [place] Urine Protein Urine Glucose (UA) Urine Ketones Urine Blood Urine Nitrite Ur Leukocyte Esterase Urine RBC Urine WBC Ur Squamous Epith Cells Urine Bacteria Respiratory Panel [place] Adenovirus (Rapid PCR) B.pert (TEM-PCR) B.parapertussis DNA PCR C. pneumoniae DNA (PCR) Coronavirus OC43 (PCR) Coronavirus HKU1 (PCR) Coronavirus 229E (PCR) COVID-19 (ROXY) COVID-19 Clin Com Coronavirus NL63 (PCR) Human Metapneumovir PCR Influenza A (RT-PCR) Influenza B (RT-PCR) M. pneumoniae (PCR) Parainfluenza 1 (PCR) Parainfluenza 2 (PCR) Parainfluenza 3 (PCR) Parainfluenza 4 (PCR) RSV (PCR) Entero/Rhino (PCR) SARS-CoV-2 RNA (RT-PCR) 10/02/21 10/02/21 10/02/21 16:40 16:40 16:40 MCV MCH MCHC RDW Plt Count MPV Immature Gran % (Auto) Neut % (Auto) Lymph % (Auto) [place] % (Auto) Eos % (Auto) Baso % (Auto) Lymph # (Auto) [place] # (Auto) Eos # (Auto) Baso # (Auto) Abs Immat Gran (auto) Absolute Neuts (auto) Absolute Nucleated RBC Nucleated RBC % (auto) Smear Tech's Comments D-Dimer 624 VBG pH VBG pCO2 VBG pO2 VBG HCO3 VBG O2 Saturation VBG Base Excess Anion Gap Estim Creat Clear Calc Estimated GFR Random Glucose Lactic Acid Calcium Total Bilirubin Direct Bilirubin AST ALT Alkaline Phosphatase Troponin I High Sens 42.7 H* B-Natriuretic Peptide 61 Total Protein Albumin Urine Color Urine Appearance Urine pH Ur Specific [place] Urine Protein Urine Glucose (UA) Urine Ketones Urine Blood Urine Nitrite Ur Leukocyte Esterase Urine RBC Urine WBC Ur Squamous Epith Cells Urine Bacteria Respiratory Panel [place] Adenovirus (Rapid PCR) B.pert (TEM-PCR) B.parapertussis DNA PCR C. pneumoniae DNA (PCR) Coronavirus OC43 (PCR) Coronavirus HKU1 (PCR) Coronavirus 229E (PCR) COVID-19 (ROXY) Negative COVID-19 Clin Com See Note Coronavirus NL63 (PCR) Human Metapneumovir PCR Influenza A (RT-PCR) Influenza B (RT-PCR) M. pneumoniae (PCR) Parainfluenza 1 (PCR) Parainfluenza 2 (PCR) Parainfluenza 3 (PCR) Parainfluenza 4 (PCR) RSV (PCR) Entero/Rhino (PCR) SARS-CoV-2 RNA (RT-PCR) 10/02/21 10/03/21 10/03/21 16:51 01:10 04:09 MCV 95.5 MCH 30.9 MCHC 32.3 RDW 14.0 Plt Count 122 L MPV 12.0 Immature Gran % (Auto) 0.4 Neut % (Auto) 92.0 H Lymph % (Auto) 5.4 L [place] % (Auto) 2.2 Eos % (Auto) 0.0 Baso % (Auto) 0.0 Lymph # (Auto) 0.3 L [place] # (Auto) 0.1 Eos # (Auto) 0.0 Baso # (Auto) 0.0 Abs Immat Gran (auto) 0.02 Absolute Neuts (auto) 4.3 Absolute Nucleated RBC 0.000 Nucleated RBC % (auto) 0.0 Smear Tech's Comments VERIFIED D-Dimer VBG pH 7.45 H VBG pCO2 25 VBG pO2 73 VBG HCO3 18 L VBG O2 Saturation 94.0 VBG Base Excess -3.9 Anion Gap Estim Creat Clear Calc Estimated GFR Random Glucose Lactic Acid Calcium Total Bilirubin Direct Bilirubin AST ALT Alkaline Phosphatase Troponin I High Sens 75.4 H* D B-Natriuretic Peptide Total Protein Albumin Urine Color Urine Appearance Urine pH Ur Specific [place] Urine Protein Urine Glucose (UA) Urine Ketones Urine Blood Urine Nitrite Ur Leukocyte Esterase Urine RBC Urine WBC Ur Squamous Epith Cells Urine Bacteria Respiratory Panel [place] Adenovirus (Rapid PCR) B.pert (TEM-PCR) B.parapertussis DNA PCR C. pneumoniae DNA (PCR) Coronavirus OC43 (PCR) Coronavirus HKU1 (PCR) Coronavirus 229E (PCR) COVID-19 (ROXY) COVID-19 Clin Com Coronavirus NL63 (PCR) Human Metapneumovir PCR Influenza A (RT-PCR) Influenza B (RT-PCR) M. pneumoniae (PCR) Parainfluenza 1 (PCR) Parainfluenza 2 (PCR) Parainfluenza 3 (PCR) Parainfluenza 4 (PCR) RSV (PCR) Entero/Rhino (PCR) SARS-CoV-2 RNA (RT-PCR) 10/03/21 10/03/21 10/03/21 04:09 04:09 07:04 MCV MCH MCHC RDW Plt Count MPV Immature Gran % (Auto) Neut % (Auto) Lymph % (Auto) [place] % (Auto) Eos % (Auto) Baso % (Auto) Lymph # (Auto) [place] # (Auto) Eos # (Auto) Baso # (Auto) Abs Immat Gran (auto) Absolute Neuts (auto) Absolute Nucleated RBC Nucleated RBC % (auto) Smear Tech's Comments D-Dimer VBG pH VBG pCO2 VBG pO2 VBG HCO3 VBG O2 Saturation VBG Base Excess Anion Gap 11 L Estim Creat Clear Calc 85.5 Estimated GFR > 60 Random Glucose 220 H D Lactic Acid Calcium 7.1 L D Total Bilirubin Direct Bilirubin AST ALT Alkaline Phosphatase Troponin I High Sens 64.2 H* B-Natriuretic Peptide Total Protein Albumin Urine Color YELLOW Urine Appearance CLEAR Urine pH 5.5 Ur Specific [place] 1.020 Urine Protein 1+ H Urine Glucose (UA) 100 H Urine Ketones NEG Urine Blood NEG Urine Nitrite NEG Ur Leukocyte Esterase NEG Urine RBC 0 Urine WBC 0-2 Ur Squamous Epith Cells NONE Urine Bacteria 1+ Respiratory Panel [place] Adenovirus (Rapid PCR) B.pert (TEM-PCR) B.parapertussis DNA PCR C. pneumoniae DNA (PCR) Coronavirus OC43 (PCR) Coronavirus HKU1 (PCR) Coronavirus 229E (PCR) COVID-19 (ROXY) COVID-19 Clin Com Coronavirus NL63 (PCR) Human Metapneumovir PCR Influenza A (RT-PCR) Influenza B (RT-PCR) M. pneumoniae (PCR) Parainfluenza 1 (PCR) Parainfluenza 2 (PCR) Parainfluenza 3 (PCR) Parainfluenza 4 (PCR) RSV (PCR) Entero/Rhino (PCR) SARS-CoV-2 RNA (RT-PCR) 10/03/21 09:32 MCV MCH MCHC RDW Plt Count MPV Immature Gran % (Auto) Neut % (Auto) Lymph % (Auto) [place] % (Auto) Eos % (Auto) Baso % (Auto) Lymph # (Auto) [place] # (Auto) Eos # (Auto) Baso # (Auto) Abs Immat Gran (auto) Absolute Neuts (auto) Absolute Nucleated RBC Nucleated RBC % (auto) Smear Tech's Comments D-Dimer VBG pH VBG pCO2 VBG pO2 VBG HCO3 VBG O2 Saturation VBG Base Excess Anion Gap Estim Creat Clear Calc Estimated GFR Random Glucose Lactic Acid Calcium Total Bilirubin Direct Bilirubin AST ALT Alkaline Phosphatase Troponin I High Sens B-Natriuretic Peptide Total Protein Albumin Urine Color Urine Appearance Urine pH Ur Specific [place] Urine Protein Urine Glucose (UA) Urine Ketones Urine Blood Urine Nitrite Ur Leukocyte Esterase Urine RBC Urine WBC Ur Squamous Epith Cells Urine Bacteria Respiratory Panel [place] See Note Adenovirus (Rapid PCR) Not Detected B.pert (TEM-PCR) Not Detected B.parapertussis DNA PCR Not Detected C. pneumoniae DNA (PCR) Not Detected Coronavirus OC43 (PCR) Not Detected Coronavirus HKU1 (PCR) Not Detected Coronavirus 229E (PCR) Not Detected COVID-19 (ROXY) COVID-19 Clin Com Coronavirus NL63 (PCR) Not Detected Human Metapneumovir PCR Not Detected Influenza A (RT-PCR) Not Detected Influenza B (RT-PCR) Not Detected M. pneumoniae (PCR) Not Detected Parainfluenza 1 (PCR) Not Detected Parainfluenza 2 (PCR) Not Detected Parainfluenza 3 (PCR) Not Detected Parainfluenza 4 (PCR) Not Detected RSV (PCR) Not Detected Entero/Rhino (PCR) Not Detected SARS-CoV-2 RNA (RT-PCR) Not Detected Assessment and Plan (1) Acute respiratory failure with hypoxia: Status: Acute (2) Sepsis: Status: Acute (3) COPD exacerbation: Status: Acute Assessment and Plan: 71-year-old male with past medical history of COPD who presents to the hospital with complaints of shortness of breath, cough, sputum production found to have pneumonia as well as COPD exacerbation 1. sepsis- secondary to COPD exacerbation as well as pneumonia has leukopenia/lymphopenia , tachycardia, tachypnea cta -neg for pulm emboli,possible pneumonia follow cultures,normal lactic acid started on IV antibiotics. 2.acute hypoxic respiratory failure- multifactor secondary to COPD as well as pneumonia oxygen demand improving now on 6liters - no evidence of COVID infection, added respiratory viral panel,titrate oxygen down as tolerated. 3. COPD exacerbation- dyspnea, cough, increased sputum production continue on Solu-Medrol 40 IV b.i.d., DuoNeb p.r.n. and scheduled - monitor respiratory status 4.pneumonia- has bilateral pneumonia - COVID-19 negative,follow-up cultures,RVP panel pending - will obtain strep and Legionella antigens,continue on IV antibiotic 5. hypothyroidism - continue levothyroxine 6. history of lung and throat cancer - patient on apixaban with no other indication than the above - denies any history of VTE, and no history of irregular rhythm noted to be continued apixaban DVT prophylaxis:? Apixaban Quality Stroke Does the patient have a stroke diagnosis?: No VTE Prior VTE?: No VTE Risk Level:: Medical - moderate - high VTE Device Contraindication: Treatment Not Indicated VTE Drug Contraindication: N/A - Med Ordered
[2021-10-03] MEDS: cefTRIAXone sodium 1 GM in 0.9 % Sodium Chloride 50 ML IV (16:39)
[2021-10-03] MEDS: Azithromycin 500 MG in 0.9 % Sodium Chloride 250 ML 125 MG IV (17:55)
[2021-10-04] VITALS (8 sets, daily range): BP systolic 117–135; BP diastolic 60–71; PULSE 68–94; RESP 18–19; TEMP 36–37; O2SAT 87–93
[2021-10-04] MEDS: Levothyroxine Sodium 25 MCG TABLET PO (05:12)
[2021-10-04] MEDS: methylPREDNISolone Sod Succ 40 MG/ML VIAL IVPUSH ×2 (05:12→16:38)
[2021-10-04] MEDS: Albuterol/Iprat 2.5/0.5MG 3 ML AMPUL.NEB INHALE ×4 (05:30→15:38)
[2021-10-04] MEDS: Aspirin 81 MG TAB.CHEW PO (09:32)
[2021-10-04] MEDS: Apixaban 2.5 MG TABLET PO (09:32)
[2021-10-04] MEDS: 0.9 % Sodium Chloride Flush 3 ML SYRINGE IVFLUSH ×2 (09:33→16:38)
--- NOTE | 2021-10-04 11:15 | MHC.CLN ---
NUTRITION VISITED WITH PATIENT AND HIS . HAS DX DECREASED ORAL INTAKE. HAD THROAT CANCER 2010 AND LUNG CANCER 2012. OLDER BROTHER PASSED YESTERDAY. REPORTED THAT PATIENT HAS A CHANGE IN TASTE POST RADIATION FOR THROAT CANCER. LIKES CANDY/SWEETS. DOES NOT WANT ENSURE SUPPLEMENT OR ENSURE PUDDING - DISLIKES. REPORTED THAT LOST 65# IN 2010 AND HAS SINCE GAINED BACK ALL OF THAT WEIGHT. REVIEW OF WEIGHT HX SHOWS WEIGHT STABLE X 5 MONTHS. ENCOURAGED PATIENT TO CONTINUE TO MAKE FOOD CHOICES WITH [facility]. CONTINUE REGULAR DIET WITH NO ADDITIONAL NUTRITION INTERVENTIONS.
--- NOTE | 2021-10-04 12:18 | MHC.CM.PN ---
EMR REVIEWED, PT REMAINS ON 4-5L O2 VIA NC, PT CONT'S TO RECEIVE IV ABX, IV STEROIDS AND DUONEB TX'S, PER HOSPITALIST HUMPHREY D/C 1-2 DAYS, CM WILL PLACE [facility]FFER[facility] TO [facility] IN [place]. PT WILL NEED VNA UPON D/C. CM WILL CONT TO FOLLOW D/C NEEDS.
--- NOTE | 2021-10-04 13:45 | P.CNID_ITS ---
History of Present Illness Data of Consult Service Date: 10/04/21 Requesting physician: Richardson Pederson Primary Care Provider: Carlo Lo MD HPI Reason for consult: shortness of breath He comes with one week of fever intermittently daily to 101 and fatigue. Three days ago he had shortness of breath as well Ambulance called and saturation 76% at home His brother was ill one week ago and at home. His brother wasnt vaccinated but wasnt known to have COVID His brother traveled to [place] and [place] Patient has trace hemoptysis tid He has one cat and it is not ill Patient has not traveled Review of Systems Review of Systems: Yes all other systems are reviewed and are negative PMFSH Past Medical History Medical History Chronic sinusitis Claudication in peripheral vascular disease Hypercholesterolemia Lung cancer Throat cancer Family History Family History Father No problems noted. Mother No problems noted. Family history: reviewed and not pertinent Surgical History Surgical History H/O carotid endarterectomy H/O neck surgery History of carpal tunnel release History of knee surgery History of total left knee replacement S/P tonsillectomy Social History Social History Household Members: Spouse Housing: [facility] Do you presently have visiting nurse or other home services: No Alcohol intake: never Patient Tobacco Use Status: Former Tobacco user service: Yes Current occupational status: retired and disabled Current occupation: right handed Meds Allergies Allergy/AdvReac Type Severity Reaction Status Date / Time moxifloxacin Allergy Numbness Verified 10/03/21 00:20 From [facility] Allergy Intermediate Foot drop Uncoded 05/01/21 10:36 as per patient Moxifloxacin HCl in NaCl Allergy Unknown drop foot Uncoded 05/01/21 10:36 Active Medications: Current Medications Acetaminophen (Acetaminophen 325 Mg Tablet) 650 mg PO Q6H PRN PRN Reason: Pain, Mild (Pain Scale 1-3) Albuterol/Ipratropium (Albuterol/Iprat 2.5/0.5mg 3 Ml Ampul.Neb) 3 ml INHALE RQ4H PRN PRN Reason: Shortness of Breath/Wheezing Last Admin: 10/04/21 05:30 Dose: 3 ml Documented by: Albuterol/Ipratropium (Albuterol/Iprat 2.5/0.5mg 3 Ml Ampul.Neb) 3 ml INHALE RQ4H WHILE AWAKE [facility] Last Admin: 10/04/21 11:54 Dose: 3 ml Documented by: Apixaban (Apixaban 2.5 Mg Tablet) 2.5 mg PO BID [facility] Last Admin: 10/04/21 09:32 Dose: 2.5 mg Documented by: Aspirin (Aspirin 81 Mg Tab.Chew) 81 mg PO DAILY [facility] Last Admin: 10/04/21 09:32 Dose: 81 mg Documented by: Docusate Sodium (Docusate Sodium 100 Mg Capsule) 100 mg PO DAILY PRN PRN Reason: Constipation Ceftriaxone Sodium 1 gm/ (Sodium Chloride) 50 mls @ 100 mls/hr IV Q24H [facility] Last Infusion: 10/03/21 17:59 Dose: Infused Documented by: Azithromycin 500 mg/ Sodium (Chloride) 250 mls @ 125 mls/hr IV Q24H [facility] Last Infusion: 10/03/21 20:10 Dose: Infused Documented by: Levothyroxine Sodium (Levothyroxine Sodium 25 Mcg Tablet) 25 mcg PO DAILY@0600 [facility] Last Admin: 10/04/21 05:12 Dose: 25 mcg Documented by: Methylprednisolone Sodium Succinate (Methylprednisolone Sod Succ 40 Mg/Ml Vial) 40 mg IVPUSH Q12H [facility] Last Admin: 10/04/21 05:12 Dose: 40 mg Documented by: Ondansetron HCl (Ondansetron Hcl 4 Mg/2 Ml Vial) 4 mg IVPUSH Q8H PRN PRN Reason: Nausea and Vomiting Pharmacy Consult (Consult Rx Perform Med Rec) 1 each MISCELLANE ONCE PRN PRN Reason: Consult order Sodium Chloride (0.9 % Sodium Chloride Flush 3 Ml Syringe) 3 ml IVFLUSH QSHIFT [facility] Last Admin: 10/04/21 09:33 Dose: 3 ml Documented by: Sodium Chloride (Sodium Chloride 0.65 % Nasal 44 Ml Sprbtl) 1 spray NOSTRIL-B Q1H PRN PRN Reason: nasal discongestion Trazodone HCl (Trazodone Hcl 50 Mg Tablet) 50 mg PO BEDTIME [facility] Last Admin: 10/03/21 20:30 Dose: 50 mg Documented by: Home Medications Medication Instructions Recorded Confirmed Last Taken Type apixaban 5 mg tablet (Eliquis) 2.5 mg PO BID 11/14/20 10/02/21 09/30/21 History aspirin 81 mg chewable tablet 81 mg PO DAILY 11/14/20 10/02/21 09/30/21 History levothyroxine 25 mcg capsule 25 mcg PO DAILY 11/14/20 10/02/21 09/30/21 History trazodone 50 mg tablet 50 mg PO BEDTIME 11/14/20 10/02/21 09/30/21 History Physical Exam Vital Signs: Vital Signs: Last Vital Signs Temp 97.6 F 10/04/21 11:55 Pulse 84 10/04/21 11:55 Resp 18 10/04/21 11:55 BP 135/70 10/04/21 11:55 Pulse Ox 93 10/04/21 11:55 Oxygen Flow Rate 14 10/02/21 16:05 Body Mass Index 24.7 Const: General: cooperative Orientation/consciousness: patient oriented x3 HENMT: Ears: hearing grossly normal bilaterally Mouth: Normal oral and palatal mucosa present Resp: Effort & Inspection: tachypneic Cardio: Rate: regular rate Rhythm: regular rhythm GI: Palpation (GI): Soft to palpation and nontender Skin: General skin exam: no rashes or lesions noted Neuro: General: patient oriented x3 Results Labs CBC & Chem 7: 10/03/21 04:09 10/03/21 04:09 Microbiology Microbiology Results: Microbiology 10/02/21 16:51 Blood - Venous Blood Culture - Preliminary No growth after 24 hours. 10/02/21 16:40 Blood - Venous Blood Culture - Preliminary No growth after 24 hours. Assessment and Plan (1) Acute respiratory failure with hypoxia: Status: Acute He probably has acute viral syndrome Less likely bacterial or fungal pneumonia although hemoptysis is concerning All-moxifloxacin foot drop (2) Sepsis: Status: Acute (3) COPD exacerbation: Status: Acute Would continue Ceftriaxone and Zmax,probably 3-5 d and then po Doxycycline as outpatient total abx 10 days Check urine Legionella Check procalcitonin No need for further PE investigation Bronchoscopy only if worsens
--- NOTE | 2021-10-04 15:34 | HO.PM.IMPN ---
Subjective Subjective Date of Service: 10/04/21 Interval History: copd excerebation, haemoptysis Review of Systems sob seems slightly better ,has mild haemoptysis Physical Exam Vital Signs: Vital Signs: Last Vital Signs Temp 97.6 F 10/04/21 11:55 Pulse 84 10/04/21 11:55 Resp 18 10/04/21 11:55 BP 135/70 10/04/21 11:55 Pulse Ox 93 10/04/21 11:55 Oxygen Flow Rate 14 10/02/21 16:05 Body Mass Index 24.7 Constitutional:? AoX3.? No acute distress.? Eyes: Pupils equal, round and reactive to light. CVS: Normal heart rate and rhythm.? Pulses normal. Normal S1 and S2 Respiratory:? air entry improving, diminsded , very tight, minimal wheezing Abdomen: Soft and nontender. No rigidity. No distention. Skin: Skin warm and dry.? Normal skin color.? Normal skin turgor. Extremities: No lower extremity edema.? No Lacerations. No Rash Neuro: Oriented X 3.? No motor deficit.? No sensory deficit. Moving all extermities. No slurred speech. Objective Data Active Medications Acetaminophen (Acetaminophen 325 Mg Tablet) 650 mg PO Q6H PRN PRN Reason: Pain, Mild (Pain Scale 1-3) Albuterol/Ipratropium (Albuterol/Iprat 2.5/0.5mg 3 Ml Ampul.Neb) 3 ml INHALE RQ4H PRN PRN Reason: Shortness of Breath/Wheezing Last Admin: 10/04/21 05:30 Dose: 3 ml Documented by: ANNA Albuterol/Ipratropium (Albuterol/Iprat 2.5/0.5mg 3 Ml Ampul.Neb) 3 ml INHALE RQ4H WHILE AWAKE [facility] Last Admin: 10/04/21 11:54 Dose: 3 ml Documented by: ELIANA Apixaban (Apixaban 2.5 Mg Tablet) 2.5 mg PO BID [facility] Last Admin: 10/04/21 09:32 Dose: 2.5 mg Documented by: CELIA Aspirin (Aspirin 81 Mg Tab.Chew) 81 mg PO DAILY [facility] Last Admin: 10/04/21 09:32 Dose: 81 mg Documented by: CELIA Docusate Sodium (Docusate Sodium 100 Mg Capsule) 100 mg PO DAILY PRN PRN Reason: Constipation Ceftriaxone Sodium 1 gm/ (Sodium Chloride) 50 mls @ 100 mls/hr IV Q24H [facility] Last Infusion: 10/03/21 17:59 Dose: 0 mls/hr Documented by: AYLA Azithromycin 500 mg/ Sodium (Chloride) 250 mls @ 125 mls/hr IV Q24H [facility] Last Infusion: 10/03/21 20:10 Dose: 0 mls/hr Documented by: ANNA Levothyroxine Sodium (Levothyroxine Sodium 25 Mcg Tablet) 25 mcg PO DAILY@0600 [facility] Last Admin: 10/04/21 05:12 Dose: 25 mcg Documented by: HAI Methylprednisolone Sodium Succinate (Methylprednisolone Sod Succ 40 Mg/Ml Vial) 40 mg IVPUSH Q12H [facility] Last Admin: 10/04/21 05:12 Dose: 40 mg Documented by: HAI Ondansetron HCl (Ondansetron Hcl 4 Mg/2 Ml Vial) 4 mg IVPUSH Q8H PRN PRN Reason: Nausea and Vomiting Pharmacy Consult (Consult Rx Perform Med Rec) 1 each MISCELLANE ONCE PRN PRN Reason: Consult order Sodium Chloride (0.9 % Sodium Chloride Flush 3 Ml Syringe) 3 ml IVFLUSH QSHIFT [facility] Last Admin: 10/04/21 09:33 Dose: 3 ml Documented by: CELIA Sodium Chloride (Sodium Chloride 0.65 % Nasal 44 Ml Sprbtl) 1 spray NOSTRIL-B Q1H PRN PRN Reason: nasal discongestion Trazodone HCl (Trazodone Hcl 50 Mg Tablet) 50 mg PO BEDTIME [facility] Last Admin: 10/03/21 20:30 Dose: 50 mg Documented by: HAI Labs CBC & Chem 7: 10/03/21 04:09 10/03/21 04:09 Microbiology Microbiology Results: Microbiology 10/02/21 16:51 Blood Culture - Preliminary Blood - Venous No growth after 24 hours. 10/02/21 16:40 Blood Culture - Preliminary Blood - Venous No growth after 24 hours. Assessment and Plan (1) Acute respiratory failure with hypoxia: Status: Acute (2) COPD exacerbation: Status: Acute Assessment and Plan: 71-year-old male with past medical history of COPD who presents to the hospital with complaints of shortness of breath, cough, sputum production found to have pneumonia as well as COPD exacerbation 1. sepsis- secondary to COPD exacerbation as well as pneumonia ?has leukopenia/lymphopenia , tachycardia, tachypnea cta -neg for pulm emboli,possible pneumonia ?follow cultures,normal lactic acid ?started on IV antibiotics. 2.acute hypoxic respiratory failure- multifactor secondary to COPD as well as pneumonia oxygen demand improving now on 6liters - no evidence of COVID infection,respiratory viral panel-neg,titrate oxygen down as tolerated. Patient is having on and on hemoptysis: Has history of lung cancer, may need bronchoscopy. Pulmonary evaluation added.hold asa, apixiban for today. 3. COPD exacerbation- dyspnea, cough, increased sputum production continue on Solu-Medrol 40 IV b.i.d., DuoNeb p.r.n. and scheduled - monitor respiratory status 4.pneumonia- has bilateral pneumonia - COVID-19 negative,follow-up cultures,RVP panel pending ? - will obtain strep and Legionella antigens,continue on IV antibiotic 5. hypothyroidism - continue levothyroxine 6. history of lung and throat cancer - patient on apixaban with no other indication than the above - denies any history of VTE, and no history of irregular rhythm hold apixaban due to haemoptysis DVT prophylaxis:? Apixaban Quality Stroke Does the patient have a stroke diagnosis?: No VTE Prior VTE?: No VTE Risk Level:: Medical - moderate - high VTE Device Contraindication: Treatment Not Indicated VTE Drug Contraindication: N/A - Med Ordered
[2021-10-04] MEDS: cefTRIAXone sodium 1 GM in 0.9 % Sodium Chloride 50 ML IV (16:38)
[2021-10-04] MEDS: Azithromycin 500 MG in 0.9 % Sodium Chloride 250 ML 125 MG IV (18:22)
[2021-10-04] MEDS: traZODone HCL 50 MG TABLET PO (21:30)
[2021-10-05] VITALS (8 sets, daily range): BP systolic 133–162; BP diastolic 77–92; PULSE 68–87; RESP 16–18; TEMP 36–37.3; O2SAT 89–96
[2021-10-05] MEDS: 0.9 % Sodium Chloride Flush 3 ML SYRINGE IVFLUSH ×3 (00:11→18:15)
[2021-10-05] MEDS: Apixaban 2.5 MG TABLET PO ×3 (00:28→21:19)
[2021-10-05] MEDS: methylPREDNISolone Sod Succ 40 MG/ML VIAL IVPUSH (05:51)
[2021-10-05] MEDS: Levothyroxine Sodium 25 MCG TABLET PO (05:51)
[2021-10-05] MEDS: Albuterol/Iprat 2.5/0.5MG 3 ML AMPUL.NEB INHALE ×3 (08:33→20:04)
[2021-10-05] MEDS: Aspirin 81 MG TAB.CHEW PO (10:10)
[2021-10-05 10:13] LABS: Hematocrit 39.5 % (42.0-52.0); Hemoglobin 12.8 g/dl (14.0-18.0)
[2021-10-05 10:39] LABS: Anion Gap 9 (12-20); Blood Urea Nitrogen 20 mg/dL (9-16); Calcium 7.9 mg/dL (8.4-10.2); Carbon Dioxide 24 mmol/L (22-29); Chloride 111 mmol/L (96-108); Creatinine Clr Calc Pharmacy 103.9; Estimated Glomerular Filt Rate > 60; Glucose Random 146 mg/dL (60-115); Potassium 4.1 mmol/L (3.3-5.1); Sodium 140 mmol/L (135-145)
--- NOTE | 2021-10-05 11:45 | MHC.CM.PN ---
JESS MET WITH PTS , JOSE, AT HER REQUEST. SHE REPORTS SHE IS UPSET ABOUT SOME OF THE CARE THE PT HAS RECEIVED WHILE INPT. SHE REPORTS MORE THAN ONE OBJECTIVE C DEVELOPER HAS REFUSED TO SILENCE THE ALARM ON THE IV POLE AND ONE WAS RUDE TO HIM AND HER. JESS PROVIDED THE NAME OF THE S3 NURSING BAR FINISH OPERATOR SO THAT SHE COULD DISCUSS HER CONCERNS. SHE ALSO REPORTS THE PTS BROTHER, WITH WHOM HE VERY CLOSE, RECENTLY . SHE REPORTS NOW THAT THE PT IS SO UPSET, HE WILL NOT EAT. SHE STATES HE IS VERY STUBBORN AND HAS REFUSED TO EAT FOR LONG PERIODS OF TIME IN THE PAST. SHE SAYS HE ONCE HAD A G-TUBE PLACED BECAUSE OF IT HE LOST 65LBS IN ONE MONTH. PTS DC PLAN IS CURRENTLY HOME. JOSE REPORTS SHE WOULD LIKE [facility] SET UP IF RECOMMENDED FAMILY WILL TRANSPORT
--- NOTE | 2021-10-05 13:13 | HO.PM.IMPN ---
Subjective Subjective Date of Service: 10/05/21 Interval History: copd excerebation, haemoptysis Review of Systems sob seems slightly better , haemoptysis seems imrpoving,? aspiration Physical Exam Vital Signs: Vital Signs: Last Vital Signs Temp 99.1 F 10/05/21 11:41 Pulse 87 10/05/21 11:42 Resp 18 10/05/21 11:41 BP 162/91 H 10/05/21 11:41 Pulse Ox 89 L 10/05/21 11:41 Oxygen Flow Rate 14 10/02/21 16:05 Body Mass Index 24.7 Constitutional:? AoX3.? No acute distress.? Eyes: Pupils equal, round and reactive to light. CVS: Normal heart rate and rhythm.? Pulses normal. Normal S1 and S2 Respiratory:? air entry improving , diminshed at bases. Abdomen: Soft and nontender. No rigidity. No distention. Skin: Skin warm and dry.? Normal skin color.? Normal skin turgor. Extremities: No lower extremity edema.? No Lacerations. No Rash Neuro: Oriented X 3.? No motor deficit.? No sensory deficit. Moving all extermities. No slurred speech. Objective Data Active Medications Acetaminophen (Acetaminophen 325 Mg Tablet) 650 mg PO Q6H PRN PRN Reason: Pain, Mild (Pain Scale 1-3) Albuterol/Ipratropium (Albuterol/Iprat 2.5/0.5mg 3 Ml Ampul.Neb) 3 ml INHALE RQ4H PRN PRN Reason: Shortness of Breath/Wheezing Last Admin: 10/04/21 05:30 Dose: 3 ml Documented by: ANNA Albuterol/Ipratropium (Albuterol/Iprat 2.5/0.5mg 3 Ml Ampul.Neb) 3 ml INHALE RQ4H WHILE AWAKE [facility] Last Admin: 10/04/21 15:36 Dose: 3 ml Documented by: ELIANA Apixaban (Apixaban 2.5 Mg Tablet) 2.5 mg PO BID [facility] Last Admin: 10/05/21 10:10 Dose: 2.5 mg Documented by: DANIEL Aspirin (Aspirin 81 Mg Tab.Chew) 81 mg PO DAILY [facility] Last Admin: 10/05/21 10:10 Dose: 81 mg Documented by: DANIEL Docusate Sodium (Docusate Sodium 100 Mg Capsule) 100 mg PO DAILY PRN PRN Reason: Constipation Ceftriaxone Sodium 1 gm/ (Sodium Chloride) 50 mls @ 100 mls/hr IV Q24H [facility] Last Infusion: 10/04/21 17:36 Dose: 0 mls/hr Documented by: ABRAHAM Azithromycin 500 mg/ Sodium (Chloride) 250 mls @ 125 mls/hr IV Q24H [facility] Last Infusion: 10/04/21 21:29 Dose: 0 mls/hr Documented by: STEVEN Levothyroxine Sodium (Levothyroxine Sodium 25 Mcg Tablet) 25 mcg PO DAILY@0600 [facility] Last Admin: 10/05/21 05:51 Dose: 25 mcg Documented by: STEVEN Methylprednisolone Sodium Succinate (Methylprednisolone Sod Succ 40 Mg/Ml Vial) 40 mg IVPUSH Q12H [facility] Last Admin: 10/05/21 05:51 Dose: 40 mg Documented by: SETVEN Ondansetron HCl (Ondansetron Hcl 4 Mg/2 Ml Vial) 4 mg IVPUSH Q8H PRN PRN Reason: Nausea and Vomiting Pharmacy Consult (Consult Rx Perform Med Rec) 1 each MISCELLANE ONCE PRN PRN Reason: Consult order Sodium Chloride (0.9 % Sodium Chloride Flush 3 Ml Syringe) 3 ml IVFLUSH QSHIFT [facility] Last Admin: 10/05/21 10:10 Dose: 3 ml Documented by: DANIEL Sodium Chloride (Sodium Chloride 0.65 % Nasal 44 Ml Sprbtl) 1 spray NOSTRIL-B Q1H PRN PRN Reason: nasal discongestion Trazodone HCl (Trazodone Hcl 50 Mg Tablet) 50 mg PO BEDTIME [facility] Last Admin: 10/04/21 21:30 Dose: 50 mg Documented by: STEVEN Labs CBC & Chem 7: 10/05/21 10:02 10/05/21 10:02 Labs: Laboratory Results - last 24 hr 10/05/21 10:02 Anion Gap 9 L Estim Creat Clear Calc 103.9 Estimated GFR > 60 Random Glucose 146 H Calcium 7.9 L D Microbiology Microbiology Results: Microbiology 10/02/21 16:51 Blood Culture - Preliminary Blood - Venous No growth after 48 hours. 10/02/21 16:40 Blood Culture - Preliminary Blood - Venous No growth after 48 hours. Assessment and Plan (1) Acute respiratory failure with hypoxia: Status: Acute (2) Sepsis: Status: Acute (3) COPD exacerbation: Status: Acute Assessment and Plan: 71-year-old male with past medical history of COPD who presents to the hospital with complaints of shortness of breath, cough, sputum production found to have pneumonia as well as COPD exacerbation 1. sepsis- secondary to COPD exacerbation as well as pneumonia ?has leukopenia/lymphopenia , tachycardia, tachypnea cta -neg for pulm emboli,possible pneumonia ?follow cultures,normal lactic acid ?started on IV antibiotics. Question of possible aspiration-patient NPO, speech and swallow evaluation, continue antibiotics. Pulmonary evaluation pending 2.acute hypoxic respiratory failure- multifactor secondary to COPD as well as pneumonia oxygen demand improving now on 6liters - no evidence of COVID infection,respiratory viral panel-neg,titrate oxygen down as tolerated. Patient is having on and on hemoptysis:? Has history of lung cancer, may need bronchoscopy. Pulmonary evaluation -hold asa, apixiban for now since has hemoptysis. 3. COPD exacerbation- dyspnea, cough, increased sputum production continue on Solu-Medrol 40 IV daily., DuoNeb p.r.n. and scheduled - monitor respiratory status 4.pneumonia- has bilateral pneumonia - COVID-19 negative,follow-up cultures,RVP panel pending ? - will obtain strep and Legionella antigens,continue on IV antibiotic 5. hypothyroidism - continue levothyroxine 6. history of lung and throat cancer - patient on apixaban with no other indication than the above - denies any history of VTE, and no history of irregular rhythm hold? apixaban? due to haemoptysis DVT prophylaxis:? On hold Apixaban due to hemoptysis. Quality Stroke Does the patient have a stroke diagnosis?: No VTE Prior VTE?: No VTE Risk Level:: Medical - moderate - high VTE Device Contraindication: Treatment Not Indicated VTE Drug Contraindication: N/A - Med Ordered
--- NOTE | 2021-10-05 14:19 | P.CONPL_ITS ---
History of Present Illness History of Present Illness Consult date: 10/05/21 Requesting physician: Richardson Pederson Chief complaint: COPD Exacerbation, PNA Narrative: 71-year-old gentleman with underlying history of throat cancer in 2013 status post debulking/chemo /radiation, also lung cancer status post right upper lobectomy, likely advanced COPD, currently under no communications engineer care admitted on 10/04/2021 with dyspnea and treated for community-acquired pn eumonia and COPD exacerbation. Patient does under significant amount of coughing when eating. His CT chest is consistent with recurrent aspiration. Review of Systems Constitutional: Constitutional: Denies daytime sleepiness, Denies excessive sweating, Denies fatigue, Denies fever(s), Denies lethargy, Denies malaise, Denies night sweats, Denies snoring and Denies weight loss Eyes: Eyes: Denies blurry vision and Denies itchy eyes ENT: Reports dysphagia, Denies nasal congestion, Denies post nasal drip, Denie s sinus pain, Denies sinus pressure and Denies other ( Thrush) Cardiovascular: Cardiovascular: Denies chest pain, Denies pedal edema, Reports dyspnea, Denies orthopnea and Denies paroxysmal nocturnal dyspnea Respiratory: Respiratory: Reports cough, Denies hemoptysis, Denies excessive phlegm production, Reports dyspnea, Denies snoring and Reports wheezing Gastrointestinal: Gastrointestinal: Denies abdominal pain, Reports dysphagia and Denies heartburn Musculoskeletal: Musculoskeletal: Denies myalgias, Denies arthralgias and Denies joint swelling Integumentary/Breasts: Skin/Breast: Denies rash Neurologic: Denies memory loss and Denies seizure-like activity Psychiatric: Psychiatric: Denies abnormal sleep pattern, Denies anxiety and Denies memory loss Endocrine: Endocrine: Denies excessive sweating, Denies fatigue and Denies heat intolerance Hematologic/Lymphatic: Hematologic/Lymphatic: Denies easy bruising Allergic/Immunologic: Allergic/Immunologic: Denies itchy eyes, Denies seasonal rhinorrhea and Reports wheezing PMFSH Past Medical History Medical History Chronic sinusitis Claudication in peripheral vascular disease Hypercholesterolemia Lung cancer Throat cancer Family History Family History Father No problems noted. Mother No problems noted. Family history: reviewed and not pertinent Surgical History Surgical History H/O carotid endarterectomy H/O neck surgery History of carpal tunnel release History of knee surgery History of total left knee replacement S/P tonsillectomy Social History Social History Household Members: [facility] Do you presently have visiting nurse or other home services: No Alcohol intake: never Patient Tobacco Use Status: Former Tobacco user service: Yes Current occupational status: retired and disabled Current occupation: right handed Meds Allergies Allergy/AdvReac Type Severity Reaction Status Date / Time moxifloxacin Allergy Numbness Verified 10/03/21 00:20 From [facility] Allergy Intermediate Foot drop Uncoded 05/01/21 10:36 as per patient Moxifloxacin HCl in NaCl Allergy Unknown drop foot Uncoded 05/01/21 10:36 Active Medications: Current Medications Acetaminophen (Acetaminophen 325 Mg Tablet) 650 mg PO Q6H PRN PRN Reason: Pain, Mild (Pain Scale 1-3) Albuterol/Ipratropium (Albuterol/Iprat 2.5/0.5mg 3 Ml Ampul.Neb) 3 ml INHALE RQ4H PRN PRN Reason: Shortness of Breath/Wheezing Last Admin: 10/04/21 05:30 Dose: 3 ml Documented by: Albuterol/Ipratropium (Albuterol/Iprat 2.5/0.5mg 3 Ml Ampul.Neb) 3 ml INHALE RQ4H WHILE AWAKE [facility] Last Admin: 10/05/21 11:40 Dose: 3 ml Documented by: Apixaban (Apixaban 2.5 Mg Tablet) 2.5 mg PO BID [facility] Last Admin: 10/05/21 10:10 Dose: 2.5 mg Documented by: Aspirin (Aspirin 81 Mg Tab.Chew) 81 mg PO DAILY [facility] Last Admin: 10/05/21 10:10 Dose: 81 mg Documented by: Docusate Sodium (Docusate Sodium 100 Mg Capsule) 100 mg PO DAILY PRN PRN Reason: Constipation Ceftriaxone Sodium 1 gm/ (Sodium Chloride) 50 mls @ 100 mls/hr IV Q24H [facility] Last Infusion: 10/04/21 17:36 Dose: Infused Documented by: Azithromycin 500 mg/ Sodium (Chloride) 250 mls @ 125 mls/hr IV Q24H [facility] Last Infusion: 10/04/21 21:29 Dose: Infused Documented by: Levothyroxine Sodium (Levothyroxine Sodium 25 Mcg Tablet) 25 mcg PO DAILY@0600 [facility] Last Admin: 10/05/21 05:51 Dose: 25 mcg Documented by: Methylprednisolone Sodium Succinate (Methylprednisolone Sod Succ 40 Mg/Ml Vial) 40 mg IVPUSH DAILY [facility] Ondansetron HCl (Ondansetron Hcl 4 Mg/2 Ml Vial) 4 mg IVPUSH Q8H PRN PRN Reason: Nausea and Vomiting Pharmacy Consult (Consult Rx Perform Med Rec) 1 each MISCELLANE ONCE PRN PRN Reason: Consult order Sodium Chloride (0.9 % Sodium Chloride Flush 3 Ml Syringe) 3 ml IVFLUSH QSHIFT [facility] Last Admin: 10/05/21 10:10 Dose: 3 ml Documented by: Sodium Chloride (Sodium Chloride 0.65 % Nasal 44 Ml Sprbtl) 1 spray NOSTRIL-B Q1H PRN PRN Reason: nasal discongestion Trazodone HCl (Trazodone Hcl 50 Mg Tablet) 50 mg PO BEDTIME [facility] Last Admin: 10/04/21 21:30 Dose: 50 mg Documented by: Home Medications Medication Instructions Recorded Confirmed Last Taken Type apixaban 5 mg tablet (Eliquis) 2.5 mg PO BID 11/14/20 10/02/21 09/30/21 History aspirin 81 mg chewable tablet 81 mg PO DAILY 11/14/20 10/02/21 09/30/21 History levothyroxine 25 mcg capsule 25 mcg PO DAILY 11/14/20 10/02/21 09/30/21 History trazodone 50 mg tablet 50 mg PO BEDTIME 11/14/20 10/02/21 09/30/21 History Physical Exam Vital Signs: Vital Signs: Last Vital Signs Temp 99.1 F 10/05/21 11:41 Pulse 87 10/05/21 11:42 Resp 18 10/05/21 11:41 BP 162/91 H 10/05/21 11:41 Pulse Ox 89 L 10/05/21 11:41 Oxygen Flow Rate 14 10/02/21 16:05 Body Mass Index 24.7 Const: General: no acute distress, alert and awake Eyes: Sclerae: sclerae normal EOM: EOMs intact bilaterally Neck: Neck: Yes no lymphadenopathy, Yes trachea midline and Yes supple Resp: Effort & Inspection: normal respiratory effort and no respiratory di stress Auscultation: crackles ( Bibasilar) Cardio: Rate: regular rate Rhythm: regular rhythm Heart sounds: no gallops, no murmurs and no rubs GI: Palpation (GI): Soft to palpation and Other GI palpation findings present ( Nontender) Auscultation: normal bowel sounds Extrem: General: Yes no pedal edema, No clubbing and No cyanosis Results Laboratory Findings CBC and BMP: 10/05/21 10:02 10/05/21 10:02 ABG, PT/INR, D-dimer: PT/INR, D-dimer D-Dimer 624 NG/ML 10/02/21 16:40 Abnormal lab findings: Abnormal Labs 10/02/21 10/02/21 10/02/21 16:40 16:40 16:40 WBC RBC Hgb Hct Plt Count 132 L Neut % (Auto) 91.8 H Lymph % (Auto) 3.6 L Lymph # (Auto) 0.3 L VBG pH VBG HCO3 Chloride Carbon Dioxide 21 L Anion Gap BUN 23 H Random Glucose 137 H Calcium 7.7 L D Alkaline Phosphatase 34 L Troponin I High Sens 42.7 H* Total Protein 6.1 L Albumin 3.3 L D Urine Protein Urine Glucose (UA) 10/02/21 10/03/21 10/03/21 16:51 01:10 04:09 WBC 4.6 L RBC 4.21 L Hgb 13.0 L Hct 40.2 L Plt Count 122 L Neut % (Auto) 92.0 H Lymph % (Auto) 5.4 L Lymph # (Auto) 0.3 L VBG pH 7.45 H VBG HCO3 18 L Chloride Carbon Dioxide Anion Gap BUN Random Glucose Calcium Alkaline Phosphatase Troponin I High Sens 75.4 H* D Total Protein Albumin Urine Protein Urine Glucose (UA) 10/03/21 10/03/21 10/03/21 04:09 04:09 07:04 WBC RBC Hgb Hct Plt Count Neut % (Auto) Lymph % (Auto) Lymph # (Auto) VBG pH VBG HCO3 Chloride 111 H Carbon Dioxide 21 L Anion Gap 11 L BUN 19 H Random Glucose 220 H D Calcium 7.1 L D Alkaline Phosphatase Troponin I High Sens 64.2 H* Total Protein Albumin Urine Protein 1+ H Urine Glucose (UA) 100 H 10/05/21 10/05/21 10:02 10:02 WBC RBC Hgb 12.8 L Hct 39.5 L Plt Count Neut % (Auto) Lymph % (Auto) Lymph # (Auto) VBG pH VBG HCO3 Chloride 111 H Carbon Dioxide Anion Gap 9 L BUN 20 H Random Glucose 146 H Calcium 7.9 L D Alkaline Phosphatase Troponin I High Sens Total Protein Albumin Urine Protein Urine Glucose (UA) Microbiology: Microbiology 10/02/21 16:51 Blood - Venous Blood Culture - Preliminary No growth after 48 hours. 10/02/21 16:40 Blood - Venous Blood Culture - Preliminary No growth after 48 hours. Assessment and Plan (1) Pulmonary aspiration: Status: Acute (2) Acute respiratory failure with hypoxia: Status: Acute (3) COPD exacerbation: Status: Acute Impression: 71-year-old gentleman with underlying history of throat cancer with debulking /chemo / radiation, cancer status post right lobectomy, advanced COPD, likely chronic pulmonary aspiration admitted with dyspnea secondary to COPD exacerbation and likely aspiration pneumonitis versus pneumonia. Recommendation: Obtain modified barium swallow study. Start on Anoro. Continue nebulized bronchodilators. Will require pulmonary follow-up on outpatient basis. Procedures Date of Service Date of Service: 10/05/21
--- NOTE | 2021-10-05 16:57 | MHC.SL.SWA ---
Speech Pathologist Impression: Risk of Aspiration Pharyngeal Dysphagia Risk of Aspiration Due to: History of Pneumonia Dysphasia Diet Status: Liquid Consistency and Strategies for Safe Swallow: Liquid Intake Recommendation: Thin Liquid Intake Strategies: Small Sips No Straws Double Swallow Solid Food Consistency: Dietary Recommendations: Chopped/Advanced (NDD3) Additional Modifications to Solid Foods: Use strategy of multiple swallow on foods and liquids. Take small sips of liquid. Oral Medication Intake: Crushed with Puree Compensatory Strategies and Precautions to be Taken for Safe Swallow: Supervision While Eating and Drinking for Safe Swallow: Intermittent Supervision Foods to Avoid: Avoid foods with mixed textures/consistencies, hard or difficult to chew foods. Swallowing Recommended Treatments: Recommendation for Speech: Inpatient Speech Therapy Comment: Pt has history of Dysphagia due to HX Throat Cancer with extensive treatment (>5 years ago). Pt self reports swallowing strategies he routinely uses (e.g. multiple swallows, small sips or bites), and foods and consistencies he avoids. Pt has complaint of difficulty taking meds with water that was a concern prior to this hospitalization, as some meds cannot be taken by other means (e.g. gel caps). Pt given trials of puree, softened solid (tasneem cracker softened in puree) and bite of soft bread with sunbutter & jelly. On all consistencies Pt had prolonged oral phase, followed by multiple swallows to clear food. Pt reported that this is a strategy he uses with food for a safe swallow. Laryngeal elevation is reduced, may be constricted by scar tissue from radiation treatment. After multiple swallows on all consistencies, Pt cleared food with no signs of aspiration. On thin liquid, Pt had delayed swallow followed by multiple swallows with reduced laryngeal elevation. Pt reports he habitually takes small sips and takes multiple swallows with liquids as a strategy. On thickened liquid, Pt had delayed swallow, but improved laryngeal elevation on swallow. Pt reports that thickened liquids were recommended by previous BENCH HAND during time he was treated at [facility], but Pt disliked taste and texture and refused texture change, and would do so if this was recommended as a result of this evaluation. Recommend Pt start on thin liquids with Chopped/Advanced (NDD3) diet. MD & Program Attendant notified of plan by secure text. BENCH HAND to follow Pt for toleration of recommended diet, re-assessment of swallow, use of strategies and advancement of diet if warranted. BENCH HAND to see PT daily M-F. Frequency/Duration: Date Range for Service Req: Timeline to reassess: Machinist Job Setter Clinican/Clinical Fellow: No Supervisory Statement: I have reviewed and agree with the student/clinical fellow's documentation: Speech Language Pathologist: Claudia Sharpe M.A., CCC-BENCH HAND
[2021-10-05] MEDS: cefTRIAXone sodium 1 GM in 0.9 % Sodium Chloride 50 ML IV (18:15)
[2021-10-05] MEDS: Azithromycin 500 MG in 0.9 % Sodium Chloride 250 ML 125 MG IV (18:51)
[2021-10-05] MEDS: traZODone HCL 50 MG TABLET PO (21:19)
[2021-10-06] VITALS (8 sets, daily range): BP systolic 131–158; BP diastolic 68–87; PULSE 57–91; RESP 16–18; TEMP 36.3–37.2; O2SAT 90–94
[2021-10-06] MEDS: 0.9 % Sodium Chloride Flush 3 ML SYRINGE IVFLUSH ×3 (00:33→17:45)
[2021-10-06] MEDS: Levothyroxine Sodium 25 MCG TABLET PO (05:50)
[2021-10-06] MEDS: Albuterol/Iprat 2.5/0.5MG 3 ML AMPUL.NEB INHALE ×3 (07:41→20:10)
[2021-10-06] MEDS: methylPREDNISolone Sod Succ 40 MG/ML VIAL IVPUSH (08:14)
--- NOTE | 2021-10-06 12:42 | MHC.SL.SWA ---
Speech Pathologist Impression: Risk of Aspiration Pharyngeal Dysphagia Risk of Aspiration Due to: History of Pneumonia Dysphasia Diet Status: Liquid Consistency and Strategies for Safe Swallow: Liquid Intake Recommendation: Thin Liquid Intake Strategies: Small Sips No Straws Double Swallow Solid Food Consistency: Dietary Recommendations: Chopped/Advanced (NDD3) Additional Modifications to Solid Foods: Use strategy of multiple swallow on foods and liquids. Take small sips of liquid. Oral Medication Intake: Crushed with Puree Compensatory Strategies and Precautions to be Taken for Safe Swallow: Sitting Upright (90 deg) Double Swallow Liquids from Cup Supervision While Eating and Drinking for Safe Swallow: None Needed Foods to Avoid: Avoid foods with mixed textures/consistencies, hard or difficult to chew foods. Swallowing Recommended Treatments: Recommendation for Speech: Inpatient Speech Therapy Comment 10/06:Pt with history of Dysphagia following treatment for Throat Cancer (remote). Pt self reports strategies used for safe swallowing, foods that he avoids or has difficulty with. Pt seen this morning with son and nephew in room. Note from Health Care / Medical Job Titles yesterday had recommended MBSS due to evidence of chronic aspiration as source of current Pneumonia. Recommendation was discussed with Pt. Explained that evaluation would provide clinical information on current swallow function and risks. Pt asked what the likely outcome would be with regard to diet, and stated that he would refuse thickened liquids if that was the result of the evaluation. Pt given trial of thin liquid self administered from cup, Pt produced multiple swallow on each sip, cleared throat (wet) X1. Laryngeal excursion on swallow is reduced, swallow is a pumping motion. Pt took spoonful's of soft solid (chopped pears), with long oral phase, multiple swallows on each bite, reduced laryngeal excursion on swallow. No clinical signs of aspiration on soft solid. advised of recommendation for MBSS via secure text. Comment: MUTUEL TELLER to follow Pt for toleration of recommended diet, re-assessment of swallow, use of strategies and advancement of diet if warranted. MUTUEL TELLER to see PT daily M-F. Frequency/Duration: Date Range for Service Req: Timeline to reassess: Communications Equipment Operator Clinican/Clinical Fellow: No Supervisory Statement: I have reviewed and agree with the student/clinical fellow's documentation: Speech Language Pathologist: Claudia Sharpe M.A., CCC-MUTUEL TELLER
--- NOTE | 2021-10-06 12:56 | MHC.SLORD ---
Speech Language Pathology Order Status: Dr. Pederson reported that Pt is refusing MBSS assessment of swallow. Will not attempt assessment scheduled for today.
--- NOTE | 2021-10-06 14:00 | MHC.SLORD ---
Speech Language Pathology Order Status: MBSS was scheduled with ARTIFICIAL INSEMINATOR and Radiology for 2pm today. However, MD reports that patient is refusing MBSS. MBSS canceled.
--- NOTE | 2021-10-06 14:37 | HO.PM.IMPN ---
Subjective Subjective Date of Service: 10/06/21 Interval History: copd excerbation , pneumonia ,? aspiration Review of Systems Shortness of breath slightly improving no hemoptysis denies any chest pain on nausea or vomiting Physical Exam Vital Signs: Vital Signs: Last Vital Signs Temp 97.9 F 10/06/21 11:50 Pulse 84 10/06/21 11:50 Resp 18 10/06/21 11:50 BP 150/86 H 10/06/21 11:50 Pulse Ox 90 L 10/06/21 11:50 Oxygen Flow Rate 14 10/02/21 16:05 Body Mass Index 24.7 Constitutional:? AoX3.? No acute distress.? Eyes: Pupils equal, round and reactive to light. CVS: Normal heart rate and rhythm.? Pulses normal. Normal S1 and S2 Respiratory:? air entry similar to yesterday , diminshed at bases. Abdomen: Soft and nontender. No rigidity. No distention. Skin: Skin warm and dry.? Normal skin color.? Normal skin turgor. Extremities: No lower extremity edema.? No Lacerations. No Rash Neuro: Oriented X 3.? No motor deficit.? No sensory deficit. Moving all extermities. No slurred speech. Objective Data Active Medications Acetaminophen (Acetaminophen 325 Mg Tablet) 650 mg PO Q6H PRN PRN Reason: Pain, Mild (Pain Scale 1-3) Albuterol/Ipratropium (Albuterol/Iprat 2.5/0.5mg 3 Ml Ampul.Neb) 3 ml INHALE RQ4H PRN PRN Reason: Shortness of Breath/Wheezing Last Admin: 10/04/21 05:30 Dose: 3 ml Documented by: ANNA Albuterol/Ipratropium (Albuterol/Iprat 2.5/0.5mg 3 Ml Ampul.Neb) 3 ml INHALE RQ4H WHILE AWAKE [facility] Last Admin: 10/06/21 11:13 Dose: Not Given Documented by: PASCUAL Non-Admin Reason: Patient Refused Apixaban (Apixaban 2.5 Mg Tablet) 2.5 mg PO BID [facility] Last Admin: 10/05/21 21:19 Dose: 2.5 mg Documented by: STEVEN Aspirin (Aspirin 81 Mg Tab.Chew) 81 mg PO DAILY [facility] Last Admin: 10/05/21 10:10 Dose: 81 mg Documented by: DANIEL Docusate Sodium (Docusate Sodium 100 Mg Capsule) 100 mg PO DAILY PRN PRN Reason: Constipation Ceftriaxone Sodium 1 gm/ (Sodium Chloride) 50 mls @ 100 mls/hr IV Q24H [facility] Last Infusion: 10/05/21 18:48 Dose: 0 mls/hr Documented by: SURESH Azithromycin 500 mg/ Sodium (Chloride) 250 mls @ 125 mls/hr IV Q24H [facility] Last Infusion: 10/05/21 21:23 Dose: 0 mls/hr Documented by: STEVEN Levothyroxine Sodium (Levothyroxine Sodium 25 Mcg Tablet) 25 mcg PO DAILY@0600 [facility] Last Admin: 10/06/21 05:50 Dose: 25 mcg Documented by: STEVEN Methylprednisolone Sodium Succinate (Methylprednisolone Sod Succ 40 Mg/Ml Vial) 40 mg IVPUSH DAILY [facility] Last Admin: 10/06/21 08:14 Dose: 40 mg Documented by: AIMEE Ondansetron HCl (Ondansetron Hcl 4 Mg/2 Ml Vial) 4 mg IVPUSH Q8H PRN PRN Reason: Nausea and Vomiting Pharmacy Consult (Consult Rx Perform Med Rec) 1 each MISCELLANE ONCE PRN PRN Reason: Consult order Sodium Chloride (0.9 % Sodium Chloride Flush 3 Ml Syringe) 3 ml IVFLUSH QSHIFT [facility] Last Admin: 10/06/21 08:14 Dose: 3 ml Documented by: AIMEE Sodium Chloride (Sodium Chloride 0.65 % Nasal 44 Ml Sprbtl) 1 spray NOSTRIL-B Q1H PRN PRN Reason: nasal discongestion Trazodone HCl (Trazodone Hcl 50 Mg Tablet) 50 mg PO BEDTIME [facility] Last Admin: 10/05/21 21:19 Dose: 50 mg Documented by: STEVEN Labs CBC & Chem 7: 10/05/21 10:02 10/05/21 10:02 Assessment and Plan (1) Acute respiratory failure with hypoxia: Status: Acute (2) Sepsis: Status: Acute (3) COPD exacerbation: Status: Acute Assessment and Plan: 71-year-old male with past medical history of COPD who presents to the hospital with complaints of shortness of breath, cough, sputum production found to have pneumonia as well as COPD exacerbation 1. sepsis- secondary to COPD exacerbation as well as pneumonia ?has leukopenia/lymphopenia cta -neg for pulm emboli,possible pneumonia ?follow cultures,normal lactic acid ?started on IV antibiotics. Question of possible aspiration-pulm eval noted -added breo since anoro not available in formulary diet modified as per swallow patient refused modified barium swallow. 2.acute hypoxic respiratory failure- multifactor secondary to COPD as well as pneumonia oxygen demand improving still 6liters - no evidence of COVID infection,respiratory viral panel-neg,titrate oxygen down as tolerated. Patient is having on and on hemoptysis:? Has history of lung cancer, may need bronchoscopy. Pulmonary evaluation -hold asa, apixiban for now since has hemoptysis. will start apixiban if no more haemptysis in 24 hours 3. COPD exacerbation- dyspnea, cough, increased sputum production continue on Solu-Medrol 40 IV daily., DuoNeb p.r.n. and scheduled - monitor respiratory status 4.pneumonia- has bilateral pneumonia- COVID-19 negative,follow-up cultures,RVP panel : neg legionella and strep antigen continue on IV antibiotic 5. hypothyroidism- continue levothyroxine 6. history of lung and throat cancer - patient on apixaban with no other indication than the above - denies any history of VTE, and no history of irregular rhythm hold? apixaban? due to haemoptysis DVT prophylaxis:? On hold Apixaban due to hemoptysis. plan to restart if no hamoptyis for a day. Quality Stroke Does the patient have a stroke diagnosis?: No VTE Prior VTE?: No VTE Risk Level:: Medical - moderate - high VTE Device Contraindication: Treatment Not Indicated VTE Drug Contraindication: N/A - Med Ordered
[2021-10-06] MEDS: cefTRIAXone sodium 1 GM in 0.9 % Sodium Chloride 50 ML IV (17:45)
[2021-10-06] MEDS: Azithromycin 500 MG in 0.9 % Sodium Chloride 250 ML 125 MG IV (18:32)
[2021-10-06] MEDS: traZODone HCL 50 MG TABLET PO (22:05)
[2021-10-06 23:12] LABS: Strep Pneumo Ag urine Not Detected (Not Detected)
[2021-10-07] VITALS (12 sets, daily range): BP systolic 108–163; BP diastolic 65–85; PULSE 71–96; RESP 17–20; TEMP 36.2–37.2; O2SAT 88–96
[2021-10-07] MEDS: 0.9 % Sodium Chloride Flush 3 ML SYRINGE IVFLUSH ×3 (00:50→16:54)
[2021-10-07 05:40] LABS: Hematocrit 40.3 % (42.0-52.0); Hemoglobin 13.4 g/dl (14.0-18.0); Mean Corpuscular HGB Conc 33.3 g/dl (31.0-36.0); Mean Corpuscular Hemoglobin 30.2 pg (27.0-33.0); Mean Corpuscular Volume 90.8 fL (80.0-98.0); Mean Platelet Volume 11.8 fL (9.4-12.4); Platelet Count 188 X10*3/uL (160-400); Red Blood Count 4.44 X10*6/uL (4.60-5.80); Red Cell Distribution Width 13.6 % (11.0-16.0); White Blood Count 6.9 X10*3/uL (4.8-10.8)
[2021-10-07 05:43] LABS: Anion Gap 10 (12-20); Blood Urea Nitrogen 18 mg/dL (9-16); Calcium 8.3 mg/dL (8.4-10.2); Carbon Dioxide 26 mmol/L (22-29); Chloride 107 mmol/L (96-108); Creatinine Clr Calc Pharmacy 109.5; Estimated Glomerular Filt Rate > 60; Glucose Random 91 mg/dL (60-115); Sodium 139 mmol/L (135-145)
[2021-10-07] MEDS: Albuterol/Iprat 2.5/0.5MG 3 ML AMPUL.NEB INHALE ×4 (08:19→20:15)
[2021-10-07] MEDS: Apixaban 2.5 MG TABLET PO ×2 (09:00→20:30)
[2021-10-07] MEDS: methylPREDNISolone Sod Succ 40 MG/ML VIAL IVPUSH (09:01)
--- NOTE | 2021-10-07 11:10 | P.PNIM_ITS ---
Subjective Subjective Date of Service: 10/07/21 Interval History: Acute hypoxemic respiratory failure secondary to copd , possible aspiration pneumonitis Review of Systems Shortness of breath slowly improving Denies any cough today or any hemoptysis Physical Exam Vital Signs: Vital Signs: Last Vital Signs Temp 97.8 F 10/07/21 08:00 Pulse 95 10/07/21 08:28 Resp 20 10/07/21 08:00 BP 159/78 H 10/07/21 08:00 Pulse Ox 91 L 10/07/21 09:09 Oxygen Flow Rate 14 10/02/21 16:05 Body Mass Index 24.7 Constitutional:? AoX3.? No acute distress.? Eyes: Pupils equal, round and reactive to light. CVS: Normal heart rate and rhythm.? Pulses normal. Normal S1 and S2 Respiratory:? air entry improving , diminshed at bases. Abdomen: Soft and nontender. No rigidity. No distention. Skin: Skin warm and dry.? Normal skin color.? Normal skin turgor. Extremities: No lower extremity edema.? No Lacerations. No Rash Neuro: Oriented X 3.? No motor deficit.? No sensory deficit. Moving all extermities. No slurred speech Objective Data Active Medications Acetaminophen (Acetaminophen 325 Mg Tablet) 650 mg PO Q6H PRN PRN Reason: Pain, Mild (Pain Scale 1-3) Albuterol/Ipratropium (Albuterol/Iprat 2.5/0.5mg 3 Ml Ampul.Neb) 3 ml INHALE RQ4H PRN PRN Reason: Shortness of Breath/Wheezing Last Admin: 10/04/21 05:30 Dose: 3 ml Documented by: ANNA Albuterol/Ipratropium (Albuterol/Iprat 2.5/0.5mg 3 Ml Ampul.Neb) 3 ml INHALE RQ 4H WHILE AWAKE [facility] Last Admin: 10/07/21 08:19 Dose: 3 ml Documented by: ALLA Apixaban (Apixaban 2.5 Mg Tablet) 2.5 mg PO BID [facility] Last Admin: 10/07/21 09:00 Dose: 2.5 mg Documented by: LAWRENCE Aspirin (Aspirin 81 Mg Tab.Chew) 81 mg PO DAILY [facility] Last Admin: 10/05/21 10:10 Dose: 81 mg Documented by: DANIEL Docusate Sodium (Docusate Sodium 100 Mg Capsule) 100 mg PO DAILY PRN PRN Reason: Constipation Fluticasone/Vilanterol (Fluticasone/Vilanterol 200/25 Blst.W.Dev) 1 puff INHALE RDAILY [facility] Last Admin: 10/07/21 08:18 Dose: Not Given Documented by: ALLA Non-Admin Reason: Med Not Available Ceftriaxone Sodium 1 gm/ (Sodium Chloride) 50 mls @ 100 mls/hr IV Q24H [facility] Last Infusion: 10/06/21 18:33 Dose: 0 mls/hr Documented by: AIMEE Azithromycin 500 mg/ Sodium (Chloride) 250 mls @ 125 mls/hr IV Q24H [facility] Last Infusion: 10/06/21 21:15 Dose: 0 mls/hr Documented by: KAE Levothyroxine Sodium (Levothyroxine Sodium 25 Mcg Tablet) 25 mcg PO DAILY@0600 [facility] Last Admin: 10/07/21 06:42 Dose: Not Given Documented by: MAX Non-Admin Reason: Patient Refused Methylprednisolone Sodium Succinate (Methylprednisolone Sod Succ 40 Mg/Ml Vial) 40 mg IVPUSH DAILY [facility] Last Admin: 10/07/21 09:01 Dose: 40 mg Documented by: LAWRENCE Ondansetron HCl (Ondansetron Hcl 4 Mg/2 Ml Vial) 4 mg IVPUSH Q8H PRN PRN Reason: Nausea and Vomiting Pharmacy Consult (Consult Rx Perform Med Rec) 1 each MISCELLANE ONCE PRN PRN Reason: Consult order Sodium Chloride (0.9 % Sodium Chloride Flush 3 Ml Syringe) 3 ml IVFLUSH QSHIFT [facility] Last Admin: 10/07/21 09:01 Dose: 3 ml Documented by: LAWRENCE Sodium Chloride (Sodium Chloride 0.65 % Nasal 44 Ml Sprbtl) 1 spray NOSTRIL-B Q1H PRN PRN Reason: nasal discongestion Trazodone HCl (Trazodone Hcl 50 Mg Tablet) 50 mg PO BEDTIME [facility] Last Admin: 10/06/21 22:05 Dose: 50 mg Documented by: KAE Labs CBC & Chem 7: 10/07/21 05:16 10/07/21 05:16 Labs: Laboratory Results - last 24 hr 10/03/21 10/07/21 10/07/21 09:32 05:16 05:16 MCV 90.8 MCH 30.2 MCHC 33.3 RDW 13.6 Plt Count 188 D MPV 11.8 Absolute Nucleated RBC 0.000 Nucleated RBC % (auto) 0.0 Anion Gap 10 L Estim Creat Clear Calc 109.5 Estimated GFR > 60 Random Glucose 91 D Calcium 8.3 L Ur Strep pneumoniae Ag Not Detected Assessment and Plan (1) Acute respiratory failure with hypoxia: Status: Acute (2) COPD exacerbation: Status: Acute Assessment and Plan: 71-year-old male with past medical history of COPD who presents to the hospital with complaints of shortness of breath, cough, sputum production found to have pneumonia as well as COPD exacerbation 1. sepsis- secondary to COPD exacerbation as well as pneumonia ?leucopenia seems improved. cta -neg for pulm emboli,possible pneumonia ?follow cultures,normal lactic acid aspirational pneumonitis -switched to po augmentin/doxycycline. 2.acute hypoxic respiratory failure- multifactor secondary to COPD as well as pneumonia oxygen demand improving no evidence of COVID infection,respiratory viral panel-neg,titrate oxygen down as tolerated. Patient is having on and on hemoptysis:? hold asa, restart apixiban for now since has hemoptysis. 3. COPD exacerbation- dyspnea, cough, increased sputum production continue on Solu-Medrol 40 IV daily., DuoNeb p.r.n. and scheduled - monitor respiratory status 4.pneumonia- has bilateral pneumonia- COVID-19 negative,follow-up cultures,RVP panel : neg legionella and strep antigen continue on IV antibiotic 5. hypothyroidism- continue levothyroxine 6. history of lung and throat cancer - patient on apixaban with no other indication than the above - denies any history of VTE, and no history of irregular rhythm hold? apixaban? due to haemoptysis DVT prophylaxis:? On hold Apixaban due to hemoptysis. plan to restart if no hamoptyis for a day. Quality Stroke Does the patient have a stroke diagnosis?: No VTE Prior VTE?: No VTE Risk Level:: Medical - moderate - high VTE Device Contraindication: Treatment Not Indicated VTE Drug Contraindication: N/A - Med Ordered
[2021-10-07] MEDS: Amoxicillin/Potassium Clav 875 MG TABLET PO (11:21)
[2021-10-07] MEDS: traZODone HCL 50 MG TABLET PO (20:30)
[2021-10-07 20:51] LABS: Legionella Ag Urine Not Detected (Not Detected)
[2021-10-08] VITALS (8 sets, daily range): BP systolic 147–162; BP diastolic 67–83; PULSE 67–94; RESP 16–20; TEMP 36.4–36.9; O2SAT 75–91
[2021-10-08] MEDS: Amoxicillin/Potassium Clav 875 MG TABLET PO ×2 (00:42→14:07)
[2021-10-08] MEDS: 0.9 % Sodium Chloride Flush 3 ML SYRINGE IVFLUSH ×2 (00:52→12:56)
[2021-10-08] MEDS: Levothyroxine Sodium 25 MCG TABLET PO (06:31)
[2021-10-08] MEDS: Apixaban 2.5 MG TABLET PO (09:26)
--- NOTE | 2021-10-08 10:14 | P.DS_ITS ---
DS: Providers Provider Date of Service: 10/08/21 Date of admission: 10/02/21 23:13 Primary care physician: Carlo Lo MD Consults: 10/03/21 09:11 Consult to Infectious Diseases Routine Consulting Provider: Olesya Mario Reason for consultation: pneumonia -? covid Has provider been notified: No 10/04/21 14:44 Consult to Pulmonology Routine Consulting Provider: Ranjan Vaughn Reason for consultation: hemoptysis , pneumonia,copd -hx of lung cancer Has provider been notified: No DS: Diagnosis Discharge Diagnosis (1) Acute respiratory failure with hypoxia: Status: Acute (2) COPD exacerbation: Status: Acute DS: Summary Hospital Course Hospital Course: 71-year-old male with past medical history of COPD, hypothyroidism, history of lung cancer post right lobectomy, throat cancer, 0 presents to the hospital with complaints of shortness of breath cough, sputum production.? Patient reports that his symptoms are about 3-4 days ago, associated with subjective fevers and chills, denies any nausea or vomiting, no chest pain, no abdominal pain, no diarrhea constipation, no urinary symptoms and no lower extremity edema. To the ED patient found to have temp of 98.5?, heart rate of 102, respiratory rate of 28, blood pressure of 88/53 that responded well to fluids, satting 90% on Venturi mask 4.6, hemoglobin of 13, pH of 7.45, BUN of 19, calcium 7.1, troponin of 42 that peaked to 75, with no chest pain, Normal sinus rhythm, with some nonspecific changes CT angiogram shows no evidence of PE, chronic appearing postoperative and emphysematous changes, there is a new bibasilar are dependent airspace disease left more so than right, superimposed infectious etiology or even aspiration on chronic changes could have this appearance. Hospital course:acute hypoxic respiratory failure secondary to COPD exacerbation,sepsis, pneumonia-started on nebs, steroids, antibiotic, over the hospital course patient also developed hemoptysis so his Eliquis was put on hold for few days subsequently hemoptysis resolved and copd treated with nebs steroids and also switched to p.o. antibiotics. Eliquis started yesterday no more hemoptysis. Aspirin still on hold make start next week if no more hemoptysis. Patient shortness of breath seems slightly better but Desats into 74's with walking, needs 6 L oxygen at rest to maintain saturation around 90s. patient decided to leave against the medical advice-Risk of leaving against medical advise discussed in detail with him and his and son- including hypoxia and -patient -both understands ,still wants to leave. respiratory arranged home oxygen , also advised him to stay resting and if shortness of breath worsen or desaturate-should come back to nearest emergency immediately. Above was discussed with pulmonary also:COPD started on albuterol and anoro . also going home with p.o. steroid, repiratory arranging home oxygen . Psych also saw the patient-seems patient understand about it disease in detail understand about with decisions and risks. Patient and component of aspiration pneumonitis-seen by speech and Swallow- currently on chopped/advanced diet(NDD3). Follow-up outpatient with PCP and Pulmonary. In addition discussed with patient and family that patient has advanced lung disease and risk of frequent aspirations also-goal of care discussion needs to be done outpatiently since patient wants to talk to his PCP about it. Please repeat chest imaging study in 3-4 weeks time to see resolution of pneumonia. Above management discussed with the patient in detail length with patient/his at bedside -both understand and in agreement with the above plan, time spent 50 minutes and 50% time spent on counseling. Significant findings: As above. Procedures performed: None. Treatment and response: As above. Complications: None. Time Spent with Patient Time attestation: Total time spent providing and/or coordinating discharge services: Discharge coordination time: Greater than 30 minutes Quality: Stroke Does the patient have a stroke diagnosis?: No Physical Exam Vital Signs: Vital Signs: Last Vital Signs Temp 97.9 F 10/08/21 07:34 Pulse 67 10/08/21 07:34 Resp 16 10/08/21 07:34 BP 147/76 H 10/08/21 07:34 Pulse Ox 90 L 10/08/21 07:34 Oxygen Flow Rate 14 10/02/21 16:05 Body Mass Index 24.7 ?Constitutional:? AoX3.? Eyes: Pupils equal, round and reactive to light. CVS: Normal heart rate and rhythm.? Pulses normal. Normal S1 and S2 Respiratory:? air entry slightly improving but dimished at bases, no rales or wheezing Abdomen: Soft and nontender. No rigidity. No distention. Skin: Skin warm and dry.? Normal skin color.? Normal skin turgor. Extremities: No lower extremity edema.? No Lacerations. No Rash Neuro: Oriented X 3.? No motor deficit.? No sensory deficit. Moving all extermities. DS: Data Data Completed and Pending Labs on day of discharge: Laboratory Results - last 24 hr 10/03/21 09:32 Ur L.pneumophila Ag Not Detected blood culture neg @5 days. CBC & Chem 7: 10/07/21 05:16? 10/07/21 05:16? Labs: Laboratory Results - last 24 hr ? 10/03/21 10/07/21 10/07/21 ? 09:32B 05:16 05:16 MCV ? ?90.8 ? MCH ? ?30.2 ? MCHC ? ?33.3 ? RDW ? ?13.6 ? Plt Count ? ?188? D ? MPV ? ?11.8 ? Absolute Nucleated RBC ? ?0.000 ? Nucleated RBC % (auto) ? ?0.0 ? Anion Gap ? ? ?10 L Estim Creat Clear Calc ? ? ?109.5 Estimated GFR ? ? ?> 60 Random Glucose ? ? ?91? D Calcium ? ? ?8.3 L Ur Strep pneumoniae Ag ?Not Detected ? ? Additional Comments Additional comments: CTA: IMPRESSION: No evidence for central pulmonary emboli. There are is chronic appearing postoperative and emphysematous changes. When compared to the 05/25/2020 study there is new bibasilar dependent airspace disease left more so than right. Superimposed infectious etiology or even aspiration on chronic changes could have this appearance. Clinical correlation and follow-up would be recommended. Discharge Plan Discharge Patient Disposition: Left Against Medical Advice Discharge Diagnosis: COPD exacerbation, pneumonitis, acute hypoxemic respiratory failure. Hemoptysis Referrals: Antonio DOMINGUEZA [Outside] - 3-5 Days ([facility] NEW [facility] O2, PLEASE CALL [phone] IF YOU DO NOT HEAR FROM A NURSE BY Saturday10/10/21.) Carlo Lo MD [Primary Care Provider] - 1 Week Ranjan Vaughn MD [Physician] - 1 Week (outpatiently) Discharge Medications: New albuterol sulfate 90 mcg/actuation HFA aerosol inhaler 2 puff inhalation Q6H PRN (Reason: shortness of breath or wheezing) Qty: 8.5 RF: 0 prednisone 20 mg tablet 40 mg PO DAILY Qty: 8 RF: 0 omeprazole 20 mg capsule,delayed release(DR/EC) 20 mg PO DAILY Qty: 30 RF: 0 amoxicillin-pot clavulanate [Augmentin] 875-125 mg tablet 1 tab PO BID Qty: 10 RF: 0 doxycycline hyclate 100 mg capsule 100 mg PO BID Qty: 10 RF: 0 Anoro Ellipta 62.5-25 mcg/actuation blister with device 1 inh inhalation DAILY Qty: 60 RF: 0 Continued levothyroxine 25 mcg capsule 25 mcg PO DAILY RF: 0 Eliquis 5 mg tablet 2.5 mg PO BID RF: 0 trazodone 50 mg tablet 50 mg PO BEDTIME RF: 0 Held aspirin 81 mg tablet,chewable 81 mg PO DAILY RF: 0 Hold Instructions: Resume on 10/16/21. Discharge Orders: Discharge Order (Routine); Ordered 10/08/21 Ordered By: Richardson Pederson Diet: advance to usual diet Activity on Discharge: As tolerated Stand Alone Forms: Patient Portal Discharge page Care Plan Goals: acute hypoxic respiratory failure secondary to COPD exacerbation,sepsis, pneumonia-started on nebs, steroids, antibiotic, over the hospital course patient also developed hemoptysis so his Eliquis was put on hold for few days subsequently hemoptysis resolved and copd treated with nebs steroids and also switched to p.o. antibiotics. Eliquis started yesterday no more hemoptysis. Aspirin still on hold make start next week if no more hemoptysis. Patient shortness of breath seems slightly better but Desats into 74's with walking, needs 6 L oxygen at rest to maintain saturation around 90s. patient decided to leave against the medical advice-Risk of leaving against medical advise discussed in detail with him and his and son- including hypoxia and -patient -both understands ,still wants to leave. respiratory and case management working on arrange home oxygen , also advised him to stay resting and if shortness of breath worsen or desaturate-should come back to nearest emergency immediately. Above was discussed with pulmonary also:COPD started on albuterol and anoro . also going home with p.o. steroid, repiratory arranging home oxygen . Patient and component of aspiration pneumonitis-seen by speech and Swallow- currently on chopped/advanced diet(NDD3). Follow-up outpatient with PCP and Pulmonary. In addition discussed with patient and family that patient has advanced lung disease and risk of frequent aspirations also-goal of care discussion needs to be done outpatiently since patient wants to talk to his PCP about it. Please repeat chest imaging study in 3-4 weeks time to see resolution of pneumonia. Health Concerns: As above. Plan of Treatment: As above. Assessment: As above. Discharge Date/Time: 10/08/21 15:40
--- NOTE | 2021-10-08 11:05 | MHC.CM.PN ---
Addendum entered by Claudia Reynolds RN 10/08/21 12:59: CM MET W/PT AND AT BEDSIDE, PT ADAMANT ABOUT LEAVING HOWEVER O2SAT DROPPED TO 76%, PT'S CALLED SON MARIA ELENA AND CM SPOKE W/HIM AND MARIA ELENA REPORTS HE WILL COME IN AND SPEAK WITH HIS FATHER ABOUT STAYING UNTIL TOMORROW. Addendum entered by Claudia Reynolds RN 10/08/21 12:39: HOSPITALIST MET W/THIS CM AND PER RESPIRATORY PT NEEDS A OXIMIZER FOR ACTIVITY HOWEVER RESPIRATORY UNABLE TO SET IT UP UNTIL TOMORROW AND PT DOES NOT WANT TO WAIT AND WANTS TO LEAVE AMA. CM WILL SPEAK TO PT AND . Original Note: IMM 10/08/21, CM MET W/PT AND AT BEDSIDE, PT'S REPORTS PT NOW HAS [facility] COVERAGE AND PRESCRIPTIONS WHICH ARE MAIL ORDER THROUGH THE [facility], PT'S IS CONCERNED AND DOES NOT WANT TO PAY OUTOF POCKET FOR ANY MEDS OTHER THAN THE ANTIBIOTIC, CM VERIFIED [facility] INSURANCE IS NOT ON FILE, PT & GIVEN FAX NUMBER FOR THIS CM AND WILL FAX IT AT 8AM, CM WILL CONTACT [facility] IN AM REGARDING OTHER MEDICATIONS WHICH SHOULD BE ABLE TO BE FILLED AT [facility] T[facility]ROW, CM WILL FOLLOW-UP W/PT OR IN AM AFTER SPEAKING TO PHARMACY. PT DOES NOT WANT TO HOLD UP D/C AND BOTH PT AND ARE OKAY W/CM FOLLOWING UP IN AM. PT IS AWAITING HOME O2 EVAL AND MAY NEED NEW HOME O2, PT WILL D/C ONCE THAT IS COMPLETE. D/C PLAN: HOME W/[facility] AND POSSIBLE NEW HOME O2, PT'S AT BEDSIDE AND WILL TRANSPORT.
[2021-10-08] MEDS: Albuterol/Iprat 2.5/0.5MG 3 ML AMPUL.NEB INHALE ×2 (11:26→15:08)
--- NOTE | 2021-10-08 13:00 | P.PNIM_ITS ---
Subjective Subjective Date of Service: 10/08/21 Interval History: Acute hypoxemic respiratory failure desats in 70's withg Review of Systems Still short of breath, no hemoptysis Physical Exam Vital Signs: Vital Signs: Last Vital Signs Temp 97.5 F 10/08/21 11:31 Pulse 81 10/08/21 11:31 Resp 19 10/08/21 11:31 BP 151/67 H 10/08/21 11:31 Pulse Ox 91 L 10/08/21 11:31 Oxygen Flow Rate 14 10/02/21 16:05 Body Mass Index 24.7 Objective Data Active Medications Acetaminophen (Acetaminophen 325 Mg Tablet) 650 mg PO Q6H PRN PRN Reason: Pain, Mild (Pain Scale 1-3) Albuterol/Ipratropium (Albuterol/Iprat 2.5/0.5mg 3 Ml Ampul.Neb) 3 ml INHALE RQ4H PRN PRN Reason: Shortness of Breath/Wheezing Last Admin: 10/04/21 05:30 Dose: 3 ml Documented by: ANNA Albuterol/Ipratropium (Albuterol/Iprat 2.5/0.5mg 3 Ml Ampul.Neb) 3 ml INHALE RQ4H WHILE AWAKE [facility] Last Admin: 10/08/21 11:26 Dose: 3 ml Documented by: PASCUAL Amoxicillin/Clavulanate Potassium (Amoxicillin/Potassium Clav 875 Mg Tablet) 875 mg PO Q12H [facility] Last Admin: 10/08/21 00:42 Dose: 875 mg Documented by: MAX Apixaban (Apixaban 2.5 Mg Tablet) 2.5 mg PO BID [facility] Last Admin: 10/08/21 09:26 Dose: 2.5 mg Documented by: LAWRENCE Aspirin (Aspirin 81 Mg Tab.Chew) 81 mg PO DAILY [facility] Last Admin: 10/05/21 10:10 Dose: 81 mg Documented by: DANIEL Docusate Sodium (Docusate Sodium 100 Mg Capsule) 100 mg PO DAILY PRN PRN Reason: Constipation Doxycycline Hyclate (Doxycycline Hyclate 100 Mg Tablet) 100 mg PO Q12H [facility] Last Admin: 10/08/21 00:42 Dose: 100 mg Documented by: MAX Fluticasone/Vilanterol (Fluticasone/Vilanterol 200/25 Blst.W.Dev) 1 puff INHALE RDAILY [facility] Last Admin: 10/08/21 07:25 Dose: Not Given Documented by: PASCUAL Non-Admin Reason: Patient Asleep Levothyroxine Sodium (Levothyroxine Sodium 25 Mcg Tablet) 25 mcg PO DAILY@0600 [facility] Last Admin: 10/08/21 06:31 Dose: 25 mcg Documented by: MAX Methylprednisolone Sodium Succinate (Methylprednisolone Sod Succ 40 Mg/Ml Vial) 40 mg IVPUSH Q6H [facility] Ondansetron HCl (Ondansetron Hcl 4 Mg/2 Ml Vial) 4 mg IVPUSH Q8H PRN PRN Reason: Nausea and Vomiting Pharmacy Consult (Consult Rx Perform Med Rec) 1 each MISCELLANE ONCE PRN PRN Reason: Consult order Sodium Chloride (0.9 % Sodium Chloride Flush 3 Ml Syringe) 3 ml IVFLUSH QSHIFT [facility] Last Admin: 10/08/21 12:56 Dose: 3 ml Documented by: LAWRENCE Sodium Chloride (Sodium Chloride 0.65 % Nasal 44 Ml Sprbtl) 1 spray NOSTRIL-B Q1H PRN PRN Reason: nasal discongestion Trazodone HCl (Trazodone Hcl 50 Mg Tablet) 50 mg PO BEDTIME [facility] Last Admin: 10/07/21 20:30 Dose: 50 mg Documented by: KAE Labs CBC & Chem 7: 10/07/21 05:16 10/07/21 05:16 Labs: Laboratory Results - last 24 hr 10/03/21 09:32 Ur L.pneumophila Ag Not Detected Microbiology Microbiology Results: Microbiology 10/02/21 16:51 Blood Culture - Final Blood - Venous No growth after 5 days. 10/02/21 16:40 Blood Culture - Final Blood - Venous No growth after 5 days. Quality Stroke Does the patient have a stroke diagnosis?: No VTE Prior VTE?: No VTE Risk Level:: Medical - moderate - high VTE Device Contraindication: Treatment Not Indicated VTE Drug Contraindication: N/A - Med Ordered
[2021-10-08] MEDS: methylPREDNISolone Sod Succ 40 MG/ML VIAL IVPUSH (14:07)
--- NOTE | 2021-10-08 14:50 | PM.PSYCN ---
History of Present Illness Date of Service: 10/08 Chief Complaint: COPD Exacerbation, PNA Requesting physician: Richardson Pederson Sources of Information: patient interviewed, chart reviewed and crisis/core team assessment reviewed HPI Narrative: Patient wanting to leave against medical advice. Director Title consulted to assess patient's capacity. Director Title met with patient. Dr. Pederson and nursing casework manager also present. His (healthcare proxy) and son also present in the room Patient is fully alert and oriented x4. Patient fully understands his medical illnesses, his need for specific treatment including O2 and pending oxizimer. He is also fully aware of the repercussions of not using oxygen, exerting himself even though on oxygen, and not waiting in-hospital for one more day until the oxizimer is available at home; he understands the risks include . Patient says that he is tired of being in the hospital and wants to return home with his family and is willing to accept the risks. He does not want to and says that he will be very careful at home, not exerting himself at all, staying on oxygen and asking for help from his supportive if he needs anything. This is a chronic condition that he has been dealing with for years and patient feels confident that he can manage being at home. Impression: Patient has full capacity to make medical decisions for himself and can not leave AMA if he chooses [facility] Medical History Chronic sinusitis Claudication in peripheral vascular disease Hypercholesterolemia Lung cancer Throat cancer Surgical History H/O carotid endarterectomy H/O neck surgery History of carpal tunnel release History of knee surgery History of total left knee replacement S/P tonsillectomy Diagnostics Vital Signs (24Hr): Vital Signs - 24 hr 10/07/21 15:12 10/07/21 16:00 10/07/21 19:10 Temperature 97.5 F 98.3 F Pulse Rate 82 96 75 Respiratory Rate 18 18 Blood Pressure 158/85 H 130/85 Pulse Oximetry 92 90 L 10/07/21 20:15 10/08/21 00:00 10/08/21 04:00 Temperature 98.2 F 98.4 F Pulse Rate 71 79 68 Respiratory Rate 20 17 Blood Pressure 162/83 H 158/74 H Pulse Oximetry 90 L 90 L 10/08/21 07:34 10/08/21 11:28 10/08/21 11:31 Temperature 97.9 F 97.5 F Pulse Rate 67 82 81 Respiratory Rate 16 19 Blood Pressure 147/76 H 151/67 H Pulse Oximetry 90 L 91 L Body Mass Index 24.7 Labs Results: 10/07/21 05:16 10/07/21 05:16 Labs: Laboratory Results - last 48 hr 10/03/21 10/07/21 10/07/21 09:32 05:16 05:16 WBC 6.9 RBC 4.44 L Hgb 13.4 L Hct 40.3 L MCV 90.8 MCH 30.2 MCHC 33.3 RDW 13.6 Plt Count 188 D MPV 11.8 Absolute Nucleated RBC 0.000 Nucleated RBC % (auto) 0.0 Sodium 139 Potassium 4.0 Chloride 107 Carbon Dioxide 26 Anion Gap 10 L BUN 18 H Creatinine 0.75 Estim Creat Clear Calc 109.5 Estimated GFR > 60 Random Glucose 91 D Calcium 8.3 L Ur L.pneumophila Ag Not Detected Ur Strep pneumoniae Ag Not Detected Imaging Radiology Impressions: ITS Impressions Chest X-Ray 10/02/21 16:19 IMPRESSION: Although there are extensive chronic appearing changes seen, there are increased reticular markings at both lung bases. Etiology is uncertain. Atypical infectious etiology or mild interstitial edema superimposed on chronic changes could have this appearance and should be clinically correlated. Chest CTA 10/02/21 17:07 IMPRESSION: No evidence for central pulmonary emboli. There are is chronic appearing postoperative and emphysematous changes. When compared to the 05/25/2020 study there is new bibasilar dependent airspace disease left more so than right. Superimposed infectious etiology or even aspiration on chronic changes could have this appearance. Clinical correlation and follow-up would be recommended. VTE: Negative Medications Medications Current Medications Acetaminophen (Acetaminophen 325 Mg Tablet) 650 mg PO Q6H PRN PRN Reason: Pain, Mild (Pain Scale 1-3) Albuterol/Ipratropium (Albuterol/Iprat 2.5/0.5mg 3 Ml Ampul.Neb) 3 ml INHALE RQ4H PRN PRN Reason: Shortness of Breath/Wheezing Last Admin: 10/04/21 05:30 Dose: 3 ml Documented by: Albuterol/Ipratropium (Albuterol/Iprat 2.5/0.5mg 3 Ml Ampul.Neb) 3 ml INHALE RQ4H WHILE AWAKE [facility] Last Admin: 10/08/21 11:26 Dose: 3 ml Documented by: Amoxicillin/Clavulanate Potassium (Amoxicillin/Potassium Clav 875 Mg Tablet) 875 mg PO Q12H [facility] Last Admin: 10/08/21 14:07 Dose: 875 mg Documented by: Apixaban (Apixaban 2.5 Mg Tablet) 2.5 mg PO BID [facility] Last Admin: 10/08/21 09:26 Dose: 2.5 mg Documented by: Aspirin (Aspirin 81 Mg Tab.Chew) 81 mg PO DAILY [facility] Last Admin: 10/05/21 10:10 Dose: 81 mg Documented by: Docusate Sodium (Docusate Sodium 100 Mg Capsule) 100 mg PO DAILY PRN PRN Reason: Constipation Doxycycline Hyclate (Doxycycline Hyclate 100 Mg Tablet) 100 mg PO Q12H [facility] Last Admin: 10/08/21 14:07 Dose: 100 mg Documented by: Fluticasone/Vilanterol (Fluticasone/Vilanterol 200/25 Blst.W.Dev) 1 puff INHALE RDAILY [facility] Last Admin: 10/08/21 07:25 Dose: Not Given Documented by: Levothyroxine Sodium (Levothyroxine Sodium 25 Mcg Tablet) 25 mcg PO DAILY@0600 [facility] Last Admin: 10/08/21 06:31 Dose: 25 mcg Documented by: Methylprednisolone Sodium Succinate (Methylprednisolone Sod Succ 40 Mg/Ml Vial) 40 mg IVPUSH Q6H [facility] Last Admin: 10/08/21 14:07 Dose: 40 mg Documented by: Ondansetron HCl (Ondansetron Hcl 4 Mg/2 Ml Vial) 4 mg IVPUSH Q8H PRN PRN Reason: Nausea and Vomiting Pharmacy Consult (Consult Rx Perform Med Rec) 1 each MISCELLANE ONCE PRN PRN Reason: Consult order Sodium Chloride (0.9 % Sodium Chloride Flush 3 Ml Syringe) 3 ml IVFLUSH QSHIFT [facility] Last Admin: 10/08/21 12:56 Dose: 3 ml Documented by: Sodium Chloride (Sodium Chloride 0.65 % Nasal 44 Ml Sprbtl) 1 spray NOSTRIL-B Q1H PRN PRN Reason: nasal discongestion Trazodone HCl (Trazodone Hcl 50 Mg Tablet) 50 mg PO BEDTIME [facility] Last Admin: 10/07/21 20:30 Dose: 50 mg Documented by: Allergies Allergies Allergy/AdvReac Type Severity Reaction Status Date / Time moxifloxacin Allergy Numbness Verified 10/03/21 00:20 From [facility] Allergy Intermediate Foot drop Uncoded 05/01/21 10:36 as per patient Moxifloxacin HCl in NaCl Allergy Unknown drop foot Uncoded 05/01/21 10:36 Assessment & Plan I spent minutes with the patient and/or on the patient floor today, greater than?50% of which was spent counseling/coordinating care.
--- NOTE | 2021-10-08 15:42 | PC.NURSE ---
Pt discharged ama with home o2 arranged. Risks and dangers explained in depth by Dr Pederson. See discharge note done BY Dr Pederson
--- NOTE | 2021-10-08 15:47 | MHC.CM.PN ---
PT WAS SEEN BY DR VALE WHO TOLD PT HE WOULD MAKE SURE PT GETS HOME O2 TODAY SO HE CAN DISCHARGE, PER HOSPITALIST PT IS STILL LEAVING AMA HOWEVER WE ARE TO CONT SETTING UP HOME SERVICES, PT WILL D/C HOME W/[facility] FOR SN, [facility] FOR HOME O2 W/OXIMIZER, FAMILY IS AT BEDSIDE AND WILL TRANSPORT PT HOME, PT'S WILL STILL FAX [facility] CARDS TO IN AM AND VERIFY MEDS W/[facility].
--- NOTE | 2021-10-09 09:47 | MHC.CM.PN ---
CM RECEIVED MESSAGE FROM [facility] WHO REPORTED THEY CAN NOT SEE PT D/T PT LEAVING AMA AND A MESSAGE FROM PT'S WHO REPORTED THE ABX WAS SENT A PILL FORM AND NEEDED TO BE LIQUID, HOSPITALIST AWARE AND HAS CALLED IN SCRIPT FOR [facility]ION, PT'S AWARE AND WILL DIRECTOR PERSONAL SCRIPTS AND WILL ALSO CALL PT'S PCP TO ASK THEM TO SET UP [facility] FOR PT. PER SHE WILL FILL ALL SCRIPTS AT [facility] AND GET REIMBURSED FROM [place] SHE DID NOT WANT TO CALL THEM AND [facility] WOULD NOT SPEAK W/CM ONLY NEXT OF KIN.
== END 2021-10-08 15:40 | disposition left against medical advice (07) | DRG 871 ==
LOC: HO.ED 20:01 → HO.EDOVER 23:29 → HO.S3 10-03 13:38
PROVIDERS: Admitting Provider Internal Medicine; Emergency Provider Emergency Medicine; PCP Internal Medicine; Visit Provider Internal Medicine
DX: A41.9 Sepsis, unspecified organism (principal); J18.9 Pneumonia, unspecified organism; J96.01 Acute respiratory failure with hypoxia; J44.1 Chronic obstructive pulmonary disease with (acute) exacerbation; J44.0 Chronic obstructive pulmonary disease with (acute) lower respiratory infection; R04.2 Hemoptysis; E03.9 Hypothyroidism, unspecified; Z85.01 Personal history of malignant neoplasm of esophagus; Z85.118 Personal history of other malignant neoplasm of bronchus and lung; Z20.822 Contact with and (suspected) exposure to COVID-19; Z87.891 Personal history of nicotine dependence; Z79.01 Long term (current) use of anticoagulants; Z79.82 Long term (current) use of aspirin; Z79.890 Hormone replacement therapy; Z79.899 Other long term (current) drug therapy
CPT/HCPCS: 36415; 71045; 71275; 80048; 80076; 81001; 82803; 83605; 83880; 84484; 85014; 85018; 85025; 85027; 85379; 87040; 87449; 87633; 87635; 87899; 92610; 93005; 93306; 94640; 94644; 94645; 96361; 96365; 96366; 96375; 99285; 99291; J0456; J0696; J2920; J2930; J3475; Q9967

== ENCOUNTER → 2021-10-24 15:36 | Outpatient (BNVA) | payer OTHER, SELFPAY | PROVIDERS: PCP Internal Medicine; Visit Provider Internal Medicine | DX: J44.9 Chronic obstructive pulmonary disease, unspecified (principal); J18.9 Pneumonia, unspecified organism; J96.01 Acute respiratory failure with hypoxia | CPT/HCPCS: 99212 ==

== ENCOUNTER 2021-11-07 08:50 | Outpatient (REF) | payer OTHER, SELFPAY ==
--- NOTE | ~2021-11-07 | XR_ITS ---
EXAMINATION: XR CHEST CLINICAL INFORMATION: Rule out pneumonia COMPARISON: Previous chest CT and chest x-rays most recent September 2021 TECHNIQUE: 2 views of the chest were obtained. FINDINGS: The heart does not appear enlarged. The thoracic aorta is calcified and tortuous. There is evidence of emphysema. There are stable postsurgical changes following right upper lobe lobectomy. There is right apical pleural thickening that appears unchanged. There is mixed increased interstitial markings and airspace disease seen at the lung bases suggestive of a pneumonia. This appears slightly improved from September 2021 exam. No evidence of new consolidation/pneumonia is seen. There is no pleural effusion or pneumothorax. There are postsurgical changes to the cervical spine. Bony structures are otherwise unremarkable. XR/XR chest 2V IMPRESSION: Improving bibasilar pneumonia. Emphysema. Stable postsurgical changes following right upper lobe lobectomy.
[2021-11-07 11:25] LABS: MANUAL DIFF FLAG NO
[2021-11-07 11:35] LABS: Basophils Percent Auto 0.4 % (0-2); Eosinophils Absolute Auto 0.1 X10*3/uL (0.0-0.4); Eosinophils Percent Auto 1.6 % (0-4); Hematocrit 43.4 % (42.0-52.0); Hemoglobin 13.8 g/dl (14.0-18.0); Imm Gran Abs Auto 0.07 X10*3/uL (0.00-0.03); Imm Gran Pct Auto 0.8 % (0.0-0.4); Lymphocytes Absolute Auto 1.4 X10*3/uL (1.2-4.9); Lymphocytes Percent Auto 15.1 % (20-40); Mean Corpuscular HGB Conc 31.8 g/dl (31.0-36.0); Mean Corpuscular Hemoglobin 29.8 pg (27.0-33.0); Mean Corpuscular Volume 93.7 fL (80.0-98.0); Mean Platelet Volume 11.3 fL (9.4-12.4); Monocytes Absolute Auto 0.9 X10*3/uL (0.1-1.2); Monocytes Percent Auto 10.4 % (2-11); Neutrophils Absolute Auto 6.4 x10*3/uL (2.0-8.3); Neutrophils Percent Auto 71.7 % (45-73); Platelet Count 261 X10*3/uL (160-400); Red Blood Count 4.63 X10*6/uL (4.60-5.80); Red Cell Distribution Width 13.8 % (11.0-16.0)
[2021-11-07 12:01] LABS: Alanine Aminotransferase 11 U/L (0-40); Albumin Level 3.9 g/dL (3.5-5.0); Alkaline Phosphatase 45 U/L (39-117); Anion Gap 17 (12-20); Aspartate Amino Transferase 16 U/L (5-37); Bilirubin Total 0.6 mg/dL (0.0-1.0); Blood Urea Nitrogen 12 mg/dL (9-16); Calcium 9.7 mg/dL (8.4-10.2); Carbon Dioxide 23 mmol/L (22-29); Chloride 102 mmol/L (96-108); Estimated Glomerular Filt Rate > 60; Glucose Random 93 mg/dL (60-115); Potassium 4.4 mmol/L (3.3-5.1); Sodium 138 mmol/L (135-145); Total Protein 7.4 g/dL (6.5-8.0)
== END 2021-11-07 08:51 | disposition home or self-care (01) ==
LOC: HO.HMGCLDS 08:50
PROVIDERS: PCP Internal Medicine; Visit Provider Internal Medicine
DX: J18.9 Pneumonia, unspecified organism (principal)
CPT/HCPCS: 36415; 71046; 80053; 85025

== ENCOUNTER → 2021-12-18 10:07 | Outpatient (BNVA) | payer OTHER, SELFPAY | PROVIDERS: PCP Internal Medicine; Visit Provider Internal Medicine | DX: J44.9 Chronic obstructive pulmonary disease, unspecified (principal); R09.02 Hypoxemia; Z85.21 Personal history of malignant neoplasm of larynx; Z85.118 Personal history of other malignant neoplasm of bronchus and lung | CPT/HCPCS: 99212 ==

== ENCOUNTER 2022-03-12 12:10 | Outpatient (REF) | payer OTHER, SELFPAY ==
[2022-03-12 13:50] LABS: MANUAL DIFF FLAG NO
[2022-03-12 14:04] LABS: Basophils Percent Auto 0.4 % (0-2); Eosinophils Absolute Auto 0.3 X10*3/uL (0.0-0.4); Eosinophils Percent Auto 3.1 % (0-4); Hematocrit 44.6 % (42.0-52.0); Hemoglobin 14.6 g/dl (14.0-18.0); Imm Gran Abs Auto 0.02 X10*3/uL (0.00-0.03); Imm Gran Pct Auto 0.2 % (0.0-0.4); Lymphocytes Absolute Auto 1.6 X10*3/uL (1.2-4.9); Lymphocytes Percent Auto 19.9 % (20-40); Mean Corpuscular HGB Conc 32.7 g/dl (31.0-36.0); Mean Corpuscular Hemoglobin 29.5 pg (27.0-33.0); Mean Corpuscular Volume 90.1 fL (80.0-98.0); Mean Platelet Volume 11.2 fL (9.4-12.4); Monocytes Absolute Auto 0.7 X10*3/uL (0.1-1.2); Monocytes Percent Auto 8.6 % (2-11); Neutrophils Absolute Auto 5.5 x10*3/uL (2.0-8.3); Neutrophils Percent Auto 67.8 % (45-73); Platelet Count 216 X10*3/uL (160-400); Red Blood Count 4.95 X10*6/uL (4.60-5.80); Red Cell Distribution Width 12.7 % (11.0-16.0); White Blood Count 8.2 X10*3/uL (4.8-10.8)
[2022-03-12 14:12] LABS: Alanine Aminotransferase 10 U/L (0-40); Albumin Level 4.1 g/dL (3.5-5.0); Alkaline Phosphatase 37 U/L (39-117); Anion Gap 15 (12-20); Aspartate Amino Transferase 18 U/L (5-37); Bilirubin Total 0.6 mg/dL (0.0-1.0); Blood Urea Nitrogen 15 mg/dL (9-16); Calcium 9.8 mg/dL (8.4-10.2); Carbon Dioxide 25 mmol/L (22-29); Chloride 103 mmol/L (96-108); Cholesterol 264 mg/dL; Estimated Glomerular Filt Rate 57; Glucose Fasting 94 mg/dL (60-99); HDL Cholesterol 41 mg/dL; LDL Cholesterol Calculated 200 mg/dl; Potassium 4.7 mmol/L (3.3-5.1); Sodium 138 mmol/L (135-145); Total Protein 7.6 g/dL (6.5-8.0); Triglycerides 119 mg/dL
[2022-03-12 14:33] LABS: Prostate Specific Antigen Scr 0.56 ng/mL (<0.05-4.0)
== END 2022-03-12 12:11 | disposition home or self-care (01) ==
LOC: HO.HMGCLDS 12:10
PROVIDERS: PCP Internal Medicine; Visit Provider Internal Medicine
DX: Z12.5 Encounter for screening for malignant neoplasm of prostate (principal); J44.9 Chronic obstructive pulmonary disease, unspecified; N40.0 Benign prostatic hyperplasia without lower urinary tract symptoms; E78.00 Pure hypercholesterolemia, unspecified; I73.9 Peripheral vascular disease, unspecified
CPT/HCPCS: 36415; 80053; 80061; 84153; 85025

== ENCOUNTER → 2022-04-23 09:41 | Outpatient (BNVA) | payer OTHER, SELFPAY | PROVIDERS: PCP Internal Medicine; Visit Provider Internal Medicine | DX: J44.9 Chronic obstructive pulmonary disease, unspecified (principal); R09.02 Hypoxemia | CPT/HCPCS: 99212 ==

== ENCOUNTER → 2022-07-18 10:03 | Outpatient (REF) | payer MEDICARE, OTHER, SELFPAY ==
--- NOTE | 2022-07-18 10:13 | CA_ITS ---
Transthoracic Echocardiogram Patient (Last, First, Middle): Daniel Encarnacion D Gender: Male Date of : 1950 Age: 72 Procedure Date: 07/18/2022 Procedure Type: Transthoracic Echocardiogram Location: OP Height: 190.5 cm Weight: 94.35 kg BSA: 2.23 m2 Heart Rate: bpm BP: 110 / 70 mmHg Mussel Farmer: TO/KS/VH Referring MD: Carlo Lo MD Traveling Auditor: El Tony MD Symptoms: J44.1 COPD ACUTE EXACERBATION, Z85.118 PER HX MAL LUNG CA Study Quality: Technically Difficult ECG Rhythm: Sinus Conclusions: - 1. Technically limited study due to significant COPD 2. LV systolic function appears to be normal with LVEF of 55-60% with impaired relaxation filling pattern 3. Rzab-sp-ybcyvazx aortic stenosis 4. Normal RV systolic pressure 5. No gross pericardial effusion Findings Left Ventricle Normal left ventricular size, thickness, and systolic function. The visually estimated ejection fraction is between 55-60%. Regional wall motion abnormalities can not be excluded due to suboptimal endocardial definition. Spectral Doppler is indicative of an impaired relaxation filling pattern. E/E prime ratio is between 8 and 15 consistent with indeterminate filling pressures. Right Ventricle Normal right ventricular cavity size and systolic function. Atria The left atrium was not well visualized. Interatrial shunt cannot be excluded. The right atrium was not well visualized. Aortic Valve There is moderate calcification of the aortic valve. There is mild thickening of the aortic valve. There is mild to moderate aortic valve stenosis. There is no aortic valve regurgitation. Mitral Valve The mitral valve was not well visualized. There is mild anterior and posterior mitral leaflet thickening. There is trace mitral valve regurgitation. There is no mitral valve stenosis. Pulmonic Valve The pulmonic valve was not well visualized. Tricuspid Valve The tricuspid valve was not well visualized. There is trace tricuspid valve regurgitation. The right ventricular systolic pressure is normal. The right ventricular systolic pressure is 13 mmHg. Normal right atrial pressure. There is no evidence of pulmonary hypertension. Great Vessels The aorta was not well visualized. The pulmonary artery was not well visualized. Venous The inferior vena cava is normal in size and collapses greater than 50% with inspiration. Pericardium/Pleural There is no evidence of pericardial effusion. Prior Study Comparison No significant change compared to prior study dated: 10/03/2021. Measurements 2D Linear Measurements IVSd: 1.19 0.6-0.9/0.6-1.0 cm LVIDd: 3.77 3.9-5.3/4.2-5.9 cm LVIDd Index: 1.69 2.4-3.2/2.2-3.1 cm/m2 LVIDs: 2.35 2.0-3.6 cm LVPWd: 1.11 0.7-1.1 cm LA Diam: 2.60 2.7-3.8/3.0-4.0 cm LAIDs Index: 1.17 1.5-2.3 cm/m2 LV Mass: 176.87 67-162/88-224 g LV Mass Index: 79.31 43-95/49-115 g/m2 LVOT Diam: 2.30 3.0+(-)1.3 cm Mitral Valve MV Pk E: 0.54 MV PK A: 1.00 MV Decel Time: 191.00 E/A: 0.50 E'Lateral: 6.64 E'Medial: 3.59 E/E' Med: 15.10 E/E' Lat: 8.20 PHT: 56.00 MVA PHT: 3.93 Decel [place]: 2.81 Aortic Valve AoV Pk Ken: 2.74 AoV Mn Ken: 1.92 AoV VTI: 0.53 AoV Pk Grad: 30.00 Aov Mn Grad: 17.00 DAVID Cont.VTI: 1.66 LVOT LVOT Pk Ken: 0.91 LVOT Mn Ken: 0.65 LVOT VTI: 0.21 LVOT Pk Grad: 3.00 LVOT Mn Grad: 2.00 LVOT Diam: 2.30 LVOT Area: 4.15 Diastolic Function MV Pk E: 0.54 MV Pk A: 1.00 E/A: 0.50 E'Medial: 3.59 E/E' Med: 15.10 E' Laterial: 6.64 E/E' Lat: 8.20 Right Ventricle TAPSE (mm): 22.00 TVS' Ken: 11.60 Tricuspid Valve TR Pk Ken: 1.60 TR Pk Grad: 10.00 RA Press: 3.00 RVSP: 13.00 Great Vessels Aorta Sinus of Valsalva: 3.85 2.0-3.5 cm Ao Asc: 3.10 2.1-3.4 cm Pulmonary Valve PV Pk Ken: 0.87 Peak PV Grad: 3.00 Updated in Other Vendor System with Status of Final El Tony MD electronically signed on 07/19/2022 4:34:29 PM with status of Final
== END ==
LOC: HO.CARD 10:03
PROVIDERS: PCP Internal Medicine; Visit Provider Internal Medicine
DX: J44.1 Chronic obstructive pulmonary disease with (acute) exacerbation (principal); Z85.118 Personal history of other malignant neoplasm of bronchus and lung
CPT/HCPCS: 93306

== ENCOUNTER 2022-10-01 08:18 | Inpatient (IN) | payer OTHER, SELFPAY ==
[2022-10-01] VITALS (13 sets, daily range): BP systolic 84–146; BP diastolic 47–90; PULSE 63–81; RESP 13–20; TEMP 36.4–36.8; O2SAT 94–100; BMI 25.4; BMI 26.1
--- NOTE | ~2022-10-01 | US_ITS ---
EXAMINATION: US EXTRACRANIAL CAROTID DUPLEX, BILATERAL CLINICAL INFORMATION: Right upper extremity weakness. Altered mental status. COMPARISON: None TECHNIQUE: Real-time ultrasound and Doppler techniques (integrating B-mode 2-D vascular images, Doppler spectral analysis and color-flow Doppler imaging) were utilized to interrogate the extracranial carotid arteries, the vertebral arteries and proximal subclavian arteries bilaterally. The degree of stenosis is determined by criteria similar to NASCET. FINDINGS: Right Side: 1. There is relatively extensive heterogeneous atherosclerotic plaque seen in the bifurcation/proximal ICA region. 2. The common carotid artery PSV proximally is 84 cm/s and distally 104 cm/s. There is a stent within the internal carotid artery. 3. The proximal internal carotid artery velocities are 56.6 cm/s systolic and 15.8 cm/s diastolic. At the distal aspect of the internal carotid stent peak systolic velocity is 613 cm/s with end-diastolic velocity 225 cm/s. 4. The proximal external carotid artery PSV is 200 cm/s. 5. The vertebral artery shows antegrade flow. 6. The subclavian artery waveforms are normal. Left Side: 1. There is mild partially calcified atherosclerotic plaque seen in the bifurcation/proximal ICA region. 2. The common carotid artery PSV proximally is 165 cm/s and distally 193 cm/s. 3. The proximal internal carotid artery velocities in one measured location measure 66.2 cm/s systolic and 19.3 cm/s diastolic. Additional sampling of the proximal ICA measures 803 cm/s systolic and 346 cm/s diastolic.. 4. The proximal external carotid artery PSV is 474 cm/s. 5. The vertebral artery shows antegrade flow. 6. The subclavian artery waveforms are normal. US/US carotid duplex BI IMPRESSION: 1. RIGHT: There is a stent within the internal carotid artery. At the distal aspect of the internal carotid artery stent there is severe, hemodynamically significant stenosis of the proximal right internal carotid artery corresponding to an 80-99% stenosis by velocity criteria. 2. LEFT: Severe, hemodynamically significant stenosis of the proximal left internal carotid artery corresponding to an 80-99% stenosis by velocity criteria.
--- NOTE | ~2022-10-01 | XR_ITS ---
EXAMINATION: XR CHEST CLINICAL INFORMATION: Altered mental status. COMPARISON: 11/07/2021 chest radiographs. Chest CTA dated 10/02/2021 TECHNIQUE: 2 views of the chest were obtained. FINDINGS: Biapical pleural thickening, right greater than left is seen without significant change. There is minimal blunting of the right costophrenic angle. Asymmetric opacification is seen in the right suprahilar region with similar appearance. Mild coarse interstitial markings are seen bilaterally. The heart and mediastinal structures are unremarkable. Cervical fixation plate appears intact. No overt acute abnormality. XR/XR chest 2V IMPRESSION: Pulmonary and pleural findings consistent with chronic changes including COPD without significant interval change.
--- NOTE | ~2022-10-01 | CT_ITS ---
EXAMINATION: CT HEAD WITHOUT CONTRAST CLINICAL INFORMATION: Seizure, question of TIA. COMPARISON: None TECHNIQUE: Contiguous axial imaging was performed from the skull base to vertex without intravenous administration of contrast. Coronal and sagittal reformatted images were obtained. Motion artifact limits evaluation, especially at the skull base. This CT examination was performed using dose optimization techniques as appropriate, variously including the following: *Automated exposure control *Adjustment of mA and/or kV according to patient size (this includes techniques or standardized protocols for targeted exams where dose is matched to indication/reason for exam; i.e. extremities or head) *Use of iterative reconstruction technique DLP: 738.52 mGy-cm FINDINGS: There is mild widening of the cortical sulci and associated ventriculomegaly. The lateral ventricles are symmetrical. Mild periventricular microvascular changes are seen. The third and fourth ventricles are in their normal midline position. The basilar and prepontine cisterns are unremarkable. There is no acute intra or extracerebral abnormality. There is no mass effect or midline shift. Sections through the bony calvarium are unremarkable. The orbits are intact. The paranasal sinuses are clear. The mastoid air cells are clear. Mild anterior nasal septal deviation, apex to the left. CT/CT head/brain wo IV con IMPRESSION: No acute intracranial pathology.
--- NOTE | ~2022-10-01 | CT_ITS ---
EXAMINATION: CT ABDOMEN AND PELVIS WITHOUT CONTRAST CLINICAL INFORMATION: Abdominal pain. COMPARISON: None TECHNIQUE: Multidetector volumetric imaging was performed from the superior aspect of the liver through the pubic symphysis. Sagittal and coronal reformatted images were obtained on the technologist's workstation. This CT examination was performed using dose optimization techniques as appropriate, variously including the following: *Automated exposure control *Adjustment of mA and/or kV according to patient size (this includes techniques or standardized protocols for targeted exams where dose is matched to indication/reason for exam; i.e. extremities or head) *Use of iterative reconstruction technique DLP: 901 mGy-cm FINDINGS: LUNG BASES: There is emphysematous changes of both lung bases with chronic scarring or atelectasis in the dependent lung bases. Minimal bilateral posterior pleural thickening with dense right diaphragmatic pleural calcification. There are coronary artery calcifications present. LIVER, GALLBLADDER, AND BILIARY TREE: The liver is normal in size, shape, and attenuation. No focal hepatic lesion or biliary ductal dilatation is present. The gallbladder is unremarkable with no evidence of radiopaque gallstones, gallbladder wall thickening, or obvious pericholecystic inflammatory changes. PANCREAS: Unremarkable. SPLEEN: Unremarkable. ADRENAL GLANDS: Unremarkable. KIDNEYS AND URETERS: The kidneys are normal in size, shape, and attenuation. No hydronephrosis, hydroureter, or calculi seen. Mild bilateral perinephric stranding is seen. There is extensive renal artery calcifications present. BLADDER: Unremarkable. GASTROINTESTINAL TRACT: There is diffuse colonic diverticulosis with scattered stool and gas seen throughout the colon. The small bowel loops are normal caliber. Appendix is normal caliber. No inflammatory process seen the abdomen or pelvis. ABDOMINAL WALL: No significant hernia is appreciated. LYMPH NODES: Normal. VASCULAR: There is atherosclerotic calcification of abdominal aorta This branches without abdominal aortic aneurysm.. There is dense atherosclerotic calcification of common iliac and external iliac arteries. PELVIC VISCERA: There is no free air or free fluid. A left inguinal hernia containing a loop of sigmoid colon is noted. No proximal bowel obstruction. OSSEOUS STRUCTURES: There is a lytic or sclerotic process seen. There is mild degenerative disc changes L4-L5 disc level with ventral spondylosis. CT/CT abdomen pelvis wo IV con IMPRESSION: 1. No acute intra-abdominal process seen. 2. Diffuse colonic diverticulosis without diverticulitis. Mild constipation. 3. 3. Left inguinal hernia containing a loop of sigmoid colon.. No inflammatory process within the hernia. Fleischner guidelines were followed.
--- NOTE | ~2022-10-01 | CT_ITS ---
EXAMINATION: CT CERVICAL SPINE WITHOUT CONTRAST CLINICAL INFORMATION: Mental status changes and neck pain COMPARISON: Chest CT 10/02/2021 TECHNIQUE: Thin section axial imaging with sagittal and coronal reformats obtained. This CT examination was performed using dose optimization techniques as appropriate, variously including the following: *Automated exposure control *Adjustment of mA and/or kV according to patient size (this includes techniques or standardized protocols for targeted exams where dose is matched to indication/reason for exam; i.e. extremities or head) *Use of iterative reconstruction technique DLP: 423 mGy-cm FINDINGS: Postsurgical changes are observed C5-C6. No fracture or destructive process or alignment abnormality. No significant encroachment on the canal. Prevertebral soft tissues normal. The right lung apex is opacified. This was seen on a chest CT 10/02/2021. Extensive vascular calcifications observed in the right and left common and internal carotid arteries. CT/CT cervical spine wo IV con IMPRESSION: Chronic changes noted. No fracture or destructive process. Fleischner guidelines were followed.
--- NOTE | ~2022-10-01 | MR_ITS ---
MRI OF THE BRAIN WITHOUT IV CONTRAST INDICATION: Right-sided weakness. COMPARISON: Head CT 10/01/2022. TECHNIQUE: Multiplanar multisequence MR imaging of the brain was obtained without IV contrast. FINDINGS: There is no hydrocephalus, extra-axial surface collection, or herniation. There is increased signal on FLAIR weighted imaging throughout the distal MCA, BRENDAN, and portions of the [employer] vasculature. This finding is typically seen in the setting of slow collateral flow and can be further assessed with a CTA of the head and neck to exclude any significant stenoses or vascular occlusions to explain these findings. There is no acute infarct on diffusion-weighted imaging. There is no intracranial hemorrhage on the gradient recalled echo acquisition. The midline structures are normal. The cerebellar tonsils are normally positioned. The cerebellum and brainstem are normal. The craniocervical junction is normal. Osseous marrow signal intensity is homogenous. The visualized soft tissues are unremarkable. MR/MR head/brain wo con IMPRESSION: - Artifactually degraded study with a possible punctate acute infarcts located within the left occipital lobe. There is a chronic lacunar infarct within the right thalamus and there are chronic lacunar infarcts within the right centrum semiovale. Moderate background chronic microangiopathy. - There is increased signal on FLAIR weighted imaging throughout the distal MCA, BRENDAN, and portions of the [employer] vasculature. This finding is typically seen in the setting of slow collateral flow and can be further assessed with a CTA of the head and neck to exclude any significant stenoses or vascular occlusions to explain these findings.
--- NOTE | 2022-10-01 08:51 | ED.GENADULT ---
HPI - General Adult General Chief complaint: General Medical Stated complaint: BLACK STOOL,VOMITING COFFEE GROUNDS,LOW BP PER EMS Time Seen by Provider: 10/01/22 08:50 Related Data Home Medications Medication Instructions Recorded Confirmed apixaban 5 mg tablet (Eliquis) 2.5 mg PO BID 11/14/20 12/18/21 aspirin 81 mg chewable tablet 81 mg PO DAILY 11/14/20 12/18/21 levothyroxine 25 mcg capsule 25 mcg PO DAILY 11/14/20 12/18/21 Previous Rx's Medication Instructions Recorded albuterol sulfate 90 mcg/actuation 2 puff inhalation Q6H PRN 10/08/21 aerosol inhaler shortness of breath or wheezing #8.5 grams tiotropium 2.5 mcg-olodaterol 2.5 2 puff inhalation DAILY copd 30 04/23/22 mcg/actuation mist for inhalation days #4 grams (Stiolto Respimat) Allergies Allergy/AdvReac Type Severity Reaction Status Date / Time moxifloxacin Allergy Numbness Verified 04/23/22 10:06 From [facility] Allergy Intermediate Foot drop Uncoded 04/23/22 10:06 as per patient Moxifloxacin HCl in NaCl Allergy Unknown drop foot Uncoded 04/23/22 10:06 [facility] Past Medical History Medical History Chronic sinusitis Claudication in peripheral vascular disease COPD (chronic obstructive pulmonary disease) Decreased oral intake Hypercholesterolemia Hypoxemia Lung cancer Sepsis Throat cancer Surgical History H/O carotid endarterectomy H/O neck surgery History of carpal tunnel release History of knee surgery History of total left knee replacement S/P tonsillectomy Family History Family History Father No problems noted. Mother No problems noted. Social History Social History Household Members: Spouse Housing: Condominium Do you presently have visiting nurse or other home services: No Alcohol intake: never Patient Tobacco Use Status: Former Tobacco user Smoked in Last 30 Days: No Use of substances other than those prescribed or required for medical reasons: No service: Yes Current occupational status: retired and disabled Current occupation: right handed Physical Exam ED Vital Signs: Vital Signs - 24 hr 10/01/22 08:48 Temperature 97.9 F Pulse Rate 79 Respiratory Rate 16 Blood Pressure 90/47 L Pulse Oximetry 99 Oxygen Delivery Method Nasal Cannula Oxygen Flow Rate 3.5 BMI result Body Mass Index 25.4 Discharge Plan Discharge Prescriptions: No Action albuterol sulfate 90 mcg/actuation HFA aerosol inhaler 2 puff inhalation Q6H PRN (Reason: shortness of breath or wheezing) Qty: 8.5 0RF levothyroxine 25 mcg capsule 25 mcg PO DAILY Eliquis 5 mg tablet 2.5 mg PO BID aspirin 81 mg tablet,chewable 81 mg PO DAILY Stiolto Respimat 2.5-2.5 mcg/actuation mist 2 puff inhalation DAILY 30 Days Qty: 4 5RF
--- NOTE | 2022-10-01 08:56 | ED_ITS ---
HPI - General Adult General Chief complaint: General Medical Stated complaint: BLACK STOOL,VOMITING COFFEE GROUNDS,LOW BP PER EMS Time Seen by Provider: 10/01/22 08:50 Source: patient, family () and EMS Mode of arrival: EMS Limitations: no limitations History of Present Illness HPI narrative: Patient is a 72 year old assigned male at with a history of COPD and PAD on Eliquis presenting to the emergency department today after an episode of altered mental status. Patient's states that after the patient got into the shower, he started screaming, had to sit down, and his right side became flaccid. She states that the patient began to drool and and she picked up and dropped his right arm. Patient states that he remembers the incident and felt like he was just very out of it. Patient's states that the patient was incontinent of urine during the incident. Patient denies any dizziness, lightheadedness, abdominal pain, nausea, vomiting, fever, chills, blurry vision, double vision, loss of vision, chest pain, difficulty breathing, shortness of breath, back pain, night sweats, pain with urination, increased urinary frequency, increased urinary urgency, blood in his urine or stool, syncope or a near syncopal episode, recent trauma or falls, bowel incontinence, bowel retention, bladder retention, or any other complaints at this time. Onset (ago): minute(s) Severity: moderate Severity scale (1-10): 5 Relieving factors: none Exacerbating factors: none Associated symptoms: denies other symptoms Treatments prior to arrival: none Related Data Home Medications Medication Instructions Recorded Confirmed aspirin 81 mg chewable tablet 81 mg PO DAILY 11/14/20 10/01/22 apixaban 5 mg tablet 2.5 mg PO BID 10/01/22 10/01/22 levothyroxine 50 mcg tablet 50 mcg PO DAILY 10/01/22 10/01/22 (Synthroid) phenylephrine HCl 0.5 % nasal spray 1 spray intranasal Q4-6H PRN 10/01/22 10/01/22 Congestion simvastatin 80 mg tablet 40 mg PO DAILY 10/01/22 10/01/22 Previous Rx's Medication Instructions Recorded albuterol sulfate 90 mcg/actuation 2 puff inhalation Q6H PRN 10/08/21 aerosol inhaler shortness of breath or wheezing #8.5 grams tiotropium 2.5 mcg-olodaterol 2.5 2 puff inhalation DAILY copd 30 04/23/22 mcg/actuation mist for inhalation days #4 grams (Stiolto Respimat) Allergies Allergy/AdvReac Type Severity Reaction Status Date / Time moxifloxacin Allergy Numbness Verified 04/23/22 10:06 Review of Systems Constitutional: Constitutional: Reports no additional constitutional complaints, Denies chills, Denies fever(s), Denies night sweats and Reports weakness Eyes: Eyes: Reports no additional eye complaints, Denies blurry vision, Denies change in vision, Denies diplopia, Denies eye discharge, Denies loss of vision and Denies eye pain ENT: Denies dizziness Cardiovascular: Cardiovascular: Reports no additional cardiovascular complaints, Denies chest pain, Denies lightheadedness, Denies Loss of Consci ousness and Denies dyspnea Respiratory: Respiratory: Reports no additional respiratory complaints and Denies dyspnea Gastrointestinal: Gastrointestinal: Reports no additional gastrointestinal complaints, Denies abdominal pain, Denies melena, Denies hematochezia, Denies change in bowel habits and Denies change in stool character Genitourinary: Genitourinary: Reports no additional male genitourinary complaints, Denies hematuria, Denies oliguria, Denies difficulty urinating, Denies dysuria, Denies urinary frequency, Denies urinary hesitancy, Denies urinary incontinence and Denies urinary urgency Musculoskeletal: Musculoskeletal: Reports no additional musculoskeletal complaints, Denies numbness and Denies tingling Neurologic: Denies dizziness, Denies loss of vision, Denies numbness, Denies tingling and Reports weakness Psychiatric: Psychiatric: Reports no additional psychiatric complaints Endocrine: Endocrine: Reports no additional endocrine complaints Hematologic/Lymphatic: Hematologic/Lymphatic: Reports no additional hematologic/lymphatic complaints Allergic/Immunologic: Allergic/Immunologic: Reports no additional allergic /immunologic complaints PMFSH Past Medical History Attestation statement: The following information was validated with the patient. Source: old records reviewed Medical History Chronic sinusitis Claudication in peripheral vascular disease COPD (chronic obstructive pulmonary disease) Decreased oral intake Hypercholesterolemia Hypoxemia Lung cancer Sepsis Throat cancer Surgical History H/O carotid endarterectomy H/O neck surgery History of carpal tunnel release History of knee surgery History of total left knee replacement S/P tonsillectomy Family History Family History Father No problems noted. Mother No problems noted. Social History Social History Household Members: Spouse [facility] Do you presently have visiting nurse or other home services: No Alcohol intake: never Patient Tobacco Use Status: Former Tobacco user Smoked in Last 30 Days: No Use of substances other than those prescribed or required for medical reasons: No Advance Directives: Yes Advance Directives Information Provided: Yes Advance Directives on File: No service: Yes Current occupational status: retired and disabled Current occupation: right handed Physical Exam ED Vital Signs: Vital Signs - 24 hr 10/01/22 08:48 10/01/22 09:15 10/01/22 11:39 Temperature 97.9 F 98 F Pulse Rate 79 81 75 Respiratory Rate 16 20 13 Blood Pressure 90/47 L 107/66 84/50 L Pulse Oximetry 99 94 98 Oxygen Delivery Method Nasal Cannula Nasal Cannula Nasal Cannula Oxygen Flow Rate 3.5 4 4 10/01/22 13:05 10/01/22 13:26 10/01/22 15:33 Temperature 98.2 F 98.2 F 98 F Pulse Rate 79 78 68 Respiratory Rate 16 14 14 Blood Pressure 103/53 L 108/60 117/58 L Pulse Oximetry 100 Oxygen Delivery Method Nasal Cannula Oxygen Flow Rate 4 10/01/22 16:06 10/01/22 16:00 Temperature 98 F 97.7 F Pulse Rate 66 63 Respiratory Rate 13 20 Blood Pressure 108/57 L 117/67 Pulse Oximetry 100 Oxygen Delivery Method Nasal Cannula Oxygen Flow Rate 4 BMI result Body Mass Index 25.4 Const General: cooperative, no acute distress, alert and awake Nutritional Appearance: well nourished Orientation/consciousness: patient oriented x3 Limitations: no limitations HENMT Head: Yes normal to inspection and Yes atraumatic Ears: hearing grossly normal bilaterally and external ears normal General nose exam: Normal external nose present, no nasal discharge noted and no epistaxis Face and sinus: Yes normal facial exam, No abrasion and No laceration Mouth: Normal oral and palatal mucosa present, no drooling and no muffled voice Eyes General: appearance normal, both eyes and all related structures Periorbital: periorbital findings normal Eyelids: Yes eyelids normal Conjunctivae: conjunctivae normal Pupils: Equal, round and reactive pupils present EOM: EOMs intact bilaterally Neck Neck: Yes normal visual inspection, Yes full ROM and Yes no lymphadenopathy Chest Chest palpation & inspection: normal inspection of the chest Resp Effort & Inspection: normal respiratory effort, able to speak in complete sentences and other (patient on 2L of oxygen via NC chronically) Auscultation: clear to auscultation bilaterally Cardio Rate: regular rate Rhythm: regular rhythm GI Inspection: Yes normal to inspection Neuro General: patient oriented x3 and moves all extremities Cranial nerves: Yes Equal, round and reactive pupils present Cognition (Neuro): normal cognition Motor exam (neuro): 5/5 motor strength present throughout Sensory Exam: Normal double simultaneous stimulation for sensation Coordination: [id number] test normal Extrem General: Yes normal to inspection, Yes full ROM and Yes capillary refill normal Psych Appearance: grossly normal Mental Status: mental status grossly normal Affect: normal affect Attitude: cooperative Thought process: Normal thought process present Thought content: Normal thought content present Insight: Good insight present (Psych) Medications Administered Discontinued Medications Generic Name Dose Route Start Last Admin Trade Name Freq PRN Reason Stop Dose Admin Sodium Chloride 1,000 mls @ 999 mls/hr 10/01/22 11:00 10/01/22 11:09 Ns IV 10/01/22 12:00 999 mls/hr .[id number] QUINN Administration Medical Decision Making MDM Narrative Medical decision making narrative: Patient is a 72 year old assigned male at with a history of COPD on chronic oxygenation and PAD on Eliquis presenting to the emergency department today after an episode of right sided weakness. Patient's physical exam was unremarkable. Patient's blood work showed a decreased hgb of 7.8 and an elevated WBC count of 13.6. Patient's urine showed no acute process. Patient's EKG was unremarkable. Patient's chest x-ray, head, C-Spine and abdominal CTs showed no acute process. I spoke to the hospitalist team who agreed to admission. Patient's clinical presentation is most consistent with acute anemia. Patient's clinical presentation is not consistent with sepsis and sepsis is not suspected. I explained my physical exam findings as well as all test results to the patient and the patient's . I answered all questions asked by the patient and the patient's . Patient received a unit of blood and IV fluids which he stated helped his symptoms significantly. Patient and the patient's verbalized agreement and understanding with this treatment plan and admission. Medical Records Medical records reviewed: Yes I reviewed the patient's medical records. Lab Data Lab results reviewed: Yes I reviewed the patient's lab results. Result diagrams: 10/01/22 10:14 10/01/22 10:14 Labs: Lab Results 10/01/22 10/01/22 10/01/22 Range/Units 10:14 10:14 10:14 WBC 13.6 H (4.8-10.8) X10*3/uL RBC 3.05 L D (4.60-5.80) X10*6/uL Hgb 7.8 L D (14.0-18.0) g/dl Hct 25.8 L D (42.0-52.0) % MCV 84.6 (80.0-98.0) fL MCH 25.6 L (27.0-33.0) pg MCHC 30.2 L (31.0-36.0) g/dl RDW 13.6 (11.0-16.0) % Plt Count 241 (160-400) X10*3/uL MPV 11.4 (9.4-12.4) fL Immature Gran % (Auto) 0.3 (0.0-0.4) % Neut % (Auto) 89.0 H (45-73) % Lymph % (Auto) 3.5 L (20-40) % Garfield % (Auto) 6.5 (2-11) % Eos % (Auto) 0.5 (0-4) % Baso % (Auto) 0.2 (0-2) % Lymph # (Auto) 0.5 L (1.2-4.9) X10*3/uL Garfield # (Auto) 0.9 (0.1-1.2) X10*3/uL Eos # (Auto) 0.1 (0.0-0.4) X10*3/uL Baso # (Auto) 0.0 (0.0-0.2) X10*3/uL Abs Immat Gran (auto) 0.04 H (0.00-0.03) X10*3/uL Absolute Neuts (auto) 12.1 H (2.0-8.3) x10*3/uL Absolute Nucleated RBC 0.000 (0.0-0.012) X10*3/uL Nucleated RBC % (auto) 0.0 (0.0-0.2) /100WBC Absolute Retic (0.026-0.095) X10*6/uL Percent Retic (0.5-1.8) % Immature Retic Fraction (2.3-13.4) % Retic Hgb Equivalent (30.0-35.0) pg PT 14.2 H (10.0-13.1) SEC INR 1.2 H (0.9-1.1) APTT 35.7 (26.0-36.4) SEC Sodium 141 (135-145) mmol/L Potassium 4.4 (3.3-5.1) mmol/L Chloride 104 (96-108) mmol/L Carbon Dioxide 23 (22-29) mmol/L Anion Gap 18 (12-20) BUN 24 H D (9-16) mg/dL Creatinine 1.47 H (0.5-1.4) mg/dL Estim Creat Clear Calc 55.0 Estimated GFR 47 Random Glucose 128 H D (60-115) mg/dL Lactic Acid (0.5-2.0) mmol/L Lactic Acid F/U @ 2Hr (0.5-2.0) mmol/L Calcium 9.8 (8.4-10.2) mg/dL Magnesium 2.4 (1.6-2.6) mg/dL Iron 20 L (45-160) mcg/dL TIBC 401 (228-428) mcg/dL % Saturation 5 L (15-50) % Unsat Iron Binding 381 ug/dL Ferritin 16 L (20-250) ng/mL Total Bilirubin 0.2 (0.0-1.0) mg/dL AST 13 (5-37) U/L ALT 10 (0-40) U/L Alkaline Phosphatase 34 L (39-117) U/L Lactate Dehydrogenase 183 (118-273) U/L Troponin I High Sens (<3.5-35.0) ng/L Total Protein 6.9 (6.5-8.0) g/dL Albumin 4.1 (3.5-5.0) g/dL Vitamin B12 (200-900) pg/mL Folate (> or = 4.0) ng/mL COVID-19 (ROXY) (Negative) COVID-19 Clin Com Blood Type Antibody Screen BHANU, Polyspecific Positive BHANU Work-up Crossmatch 10/01/22 10/01/22 10/01/22 Range/Units 10:14 10:14 10:16 WBC (4.8-10.8) X10*3/uL RBC (4.60-5.80) X10*6/uL Hgb (14.0-18.0) g/dl Hct (42.0-52.0) % MCV (80.0-98.0) fL MCH (27.0-33.0) pg MCHC (31.0-36.0) g/dl RDW (11.0-16.0) % Plt Count (160-400) X10*3/uL MPV (9.4-12.4) fL Immature Gran % (Auto) (0.0-0.4) % Neut % (Auto) (45-73) % Lymph % (Auto) (20-40) % Garfield % (Auto) (2-11) % Eos % (Auto) (0-4) % Baso % (Auto) (0-2) % Lymph # (Auto) (1.2-4.9) X10*3/uL Garfield # (Auto) (0.1-1.2) X10*3/uL Eos # (Auto) (0.0-0.4) X10*3/uL Baso # (Auto) (0.0-0.2) X10*3/uL Abs Immat Gran (auto) (0.00-0.03) X10*3/uL Absolute Neuts (auto) (2.0-8.3) x10*3/uL Absolute Nucleated RBC (0.0-0.012) X10*3/uL Nucleated RBC % (auto) (0.0-0.2) /100WBC Absolute Retic (0.026-0.095) X10*6/uL Percent Retic (0.5-1.8) % Immature Retic Fraction (2.3-13.4) % Retic Hgb Equivalent (30.0-35.0) pg PT (10.0-13.1) SEC INR (0.9-1.1) APTT (26.0-36.4) SEC Sodium (135-145) mmol/L Potassium (3.3-5.1) mmol/L Chloride (96-108) mmol/L Carbon Dioxide (22-29) mmol/L Anion Gap (12-20) BUN (9-16) mg/dL Creatinine (0.5-1.4) mg/dL Estim Creat Clear Calc Estimated GFR Random Glucose (60-115) mg/dL Lactic Acid 3.4 H* (0.5-2.0) mmol/L Lactic Acid F/U @ 2Hr (0.5-2.0) mmol/L Calcium (8.4-10.2) mg/dL Magnesium (1.6-2.6) mg/dL Iron (45-160) mcg/dL TIBC (228-428) mcg/dL % Saturation (15-50) % Unsat Iron Binding ug/dL Ferritin (20-250) ng/mL Total Bilirubin (0.0-1.0) mg/dL AST (5-37) U/L ALT (0-40) U/L Alkaline Phosphatase (39-117) U/L Lactate Dehydrogenase (118-273) U/L Troponin I High Sens 14.4 (<3.5-35.0) ng/L Total Protein (6.5-8.0) g/dL Albumin (3.5-5.0) g/dL Vitamin B12 (200-900) pg/mL Folate (> or = 4.0) ng/mL COVID-19 (ROXY) (Negative) COVID-19 Clin Com Blood Type O Positive Antibody Screen NEGATIVE BHANU, Polyspecific NEGATIVE Positive BHANU Work-up TNP Crossmatch See Detail 10/01/22 10/01/22 10/01/22 Range/Units 12:55 12:55 16:29 WBC (4.8-10.8) X10*3/uL RBC (4.60-5.80) X10*6/uL Hgb (14.0-18.0) g/dl Hct (42.0-52.0) % MCV (80.0-98.0) fL MCH (27.0-33.0) pg MCHC (31.0-36.0) g/dl RDW (11.0-16.0) % Plt Count (160-400) X10*3/uL MPV (9.4-12.4) fL Immature Gran % (Auto) (0.0-0.4) % Neut % (Auto) (45-73) % Lymph % (Auto) (20-40) % Garfield % (Auto) (2-11) % Eos % (Auto) (0-4) % Baso % (Auto) (0-2) % Lymph # (Auto) (1.2-4.9) X10*3/uL Garfield # (Auto) (0.1-1.2) X10*3/uL Eos # (Auto) (0.0-0.4) X10*3/uL Baso # (Auto) (0.0-0.2) X10*3/uL Abs Immat Gran (auto) (0.00-0.03) X10*3/uL Absolute Neuts (auto) (2.0-8.3) x10*3/uL Absolute Nucleated RBC (0.0-0.012) X10*3/uL Nucleated RBC % (auto) (0.0-0.2) /100WBC Absolute Retic 0.056 (0.026-0.095) X10*6/uL Percent Retic 1.9 H (0.5-1.8) % Immature Retic Fraction 24.2 H (2.3-13.4) % Retic Hgb Equivalent 22.0 L (30.0-35.0) pg PT (10.0-13.1) SEC INR (0.9-1.1) APTT (26.0-36.4) SEC Sodium (135-145) mmol/L Potassium (3.3-5.1) mmol/L Chloride (96-108) mmol/L Carbon Dioxide (22-29) mmol/L Anion Gap (12-20) BUN (9-16) mg/dL Creatinine (0.5-1.4) mg/dL Estim Creat Clear Calc Estimated GFR Random Glucose (60-115) mg/dL Lactic Acid (0.5-2.0) mmol/L Lactic Acid F/U @ 2Hr 1.0 (0.5-2.0) mmol/L Calcium (8.4-10.2) mg/dL Magnesium (1.6-2.6) mg/dL Iron (45-160) mcg/dL TIBC (228-428) mcg/dL % Saturation (15-50) % Unsat Iron Binding ug/dL Ferritin (20-250) ng/mL Total Bilirubin (0.0-1.0) mg/dL AST (5-37) U/L ALT (0-40) U/L Alkaline Phosphatase (39-117) U/L Lactate Dehydrogenase (118-273) U/L Troponin I High Sens (<3.5-35.0) ng/L Total Protein (6.5-8.0) g/dL Albumin (3.5-5.0) g/dL Vitamin B12 268 (200-900) pg/mL Folate 9.1 (> or = 4.0) ng/mL COVID-19 (ROXY) (Negative) COVID-19 Clin Com Blood Type Antibody Screen BHANU, Polyspecific Positive BHANU Work-up Crossmatch 10/01/22 Range/Units 16:29 WBC (4.8-10.8) X10*3/uL RBC (4.60-5.80) X10*6/uL Hgb (14.0-18.0) g/dl Hct (42.0-52.0) % MCV (80.0-98.0) fL MCH (27.0-33.0) pg MCHC (31.0-36.0) g/dl RDW (11.0-16.0) % Plt Count (160-400) X10*3/uL MPV (9.4-12.4) fL Immature Gran % (Auto) (0.0-0.4) % Neut % (Auto) (45-73) % Lymph % (Auto) (20-40) % Garfield % (Auto) (2-11) % Eos % (Auto) (0-4) % Baso % (Auto) (0-2) % Lymph # (Auto) (1.2-4.9) X10*3/uL Garfield # (Auto) (0.1-1.2) X10*3/uL Eos # (Auto) (0.0-0.4) X10*3/uL Baso # (Auto) (0.0-0.2) X10*3/uL Abs Immat Gran (auto) (0.00-0.03) X10*3/uL Absolute Neuts (auto) (2.0-8.3) x10*3/uL Absolute Nucleated RBC (0.0-0.012) X10*3/uL Nucleated RBC % (auto) (0.0-0.2) /100WBC Absolute Retic (0.026-0.095) X10*6/uL Percent Retic (0.5-1.8) % Immature Retic Fraction (2.3-13.4) % Retic Hgb Equivalent (30.0-35.0) pg PT (10.0-13.1) SEC INR (0.9-1.1) APTT (26.0-36.4) SEC Sodium (135-145) mmol/L Potassium (3.3-5.1) mmol/L Chloride (96-108) mmol/L Carbon Dioxide (22-29) mmol/L Anion Gap (12-20) BUN (9-16) mg/dL Creatinine (0.5-1.4) mg/dL Estim Creat Clear Calc Estimated GFR Random Glucose (60-115) mg/dL Lactic Acid (0.5-2.0) mmol/L Lactic Acid F/U @ 2Hr (0.5-2.0) mmol/L Calcium (8.4-10.2) mg/dL Magnesium (1.6-2.6) mg/dL Iron (45-160) mcg/dL TIBC (228-428) mcg/dL % Saturation (15-50) % Unsat Iron Binding ug/dL Ferritin (20-250) ng/mL Total Bilirubin (0.0-1.0) mg/dL AST (5-37) U/L ALT (0-40) U/L Alkaline Phosphatase (39-117) U/L Lactate Dehydrogenase (118-273) U/L Troponin I High Sens (<3.5-35.0) ng/L Total Protein (6.5-8.0) g/dL Albumin (3.5-5.0) g/dL Vitamin B12 (200-900) pg/mL Folate (> or = 4.0) ng/mL COVID-19 (ROXY) Negative (Negative) COVID-19 Clin Com See Note Blood Type Antibody Screen BHANU, Polyspecific Positive BHANU Work-up Crossmatch Imaging Data Chest x-ray: Attestation: I personally reviewed and interpreted this imaging study as follows: My impression: No acute process. Radiologist's impression: EXAMINATION: XR CHEST CLINICAL INFORMATION: Altered mental status. COMPARISON: 11/07/2021 chest radiographs. Chest CTA dated 10/02/2021 TECHNIQUE: 2 views of the chest were obtained. FINDINGS: Biapical pleural thickening, right greater than left is seen without significant change. There is minimal blunting of the right costophrenic angle. Asymmetric opacification is seen in the right suprahilar region with similar appearance. Mild coarse interstitial markings are seen bilaterally. The heart and mediastinal structures are unremarkable. Cervical fixation plate appears intact. No overt acute abnormality. XR/XR chest 2V IMPRESSION: Pulmonary and pleural findings consistent with chronic changes including COPD without significant interval change. Dictated By: Aki Bueno MD Signed By: Electronically signed by Aki Bueno MD 10/01/[address] C-Spine: Attestation: I personally reviewed and interpreted this imaging study as follows: My impression: No acute process. Radiologist's impression: EXAMINATION: CT CERVICAL SPINE WITHOUT CONTRAST CLINICAL INFORMATION: Mental status changes and neck pain? COMPARISON: Chest CT 10/02/2021 TECHNIQUE: Thin section axial imaging with sagittal and coronal reformats obtained.? This CT examination was performed using dose optimization techniques as appropriate, variously including the following: *Automated exposure control *Adjustment of mA and/or kV according to patient size (this includes techniques or standardized protocols for targeted exams where dose is matched to indication/reason for exam; i.e. extremities or head) *Use of iterative reconstruction technique DLP: 423 mGy-cm FINDINGS: Postsurgical changes are observed C5-C6. No fracture or destructive process or alignment abnormality. No significant encroachment on the canal. Prevertebral soft tissues normal. The right lung apex is opacified. This was seen on a chest CT 10/02/2021. Extensive vascular calcifications observed in the right and left common and internal carotid arteries. CT/CT cervical spine wo IV con IMPRESSION: Chronic changes noted. No fracture or destructive process. ? Fleischner guidelines were followed. Dictated By: Delvis Beaver MD Signed By: Electronically signed by Delvis Beaver MD 10/01/[address] scan - head: Attestation: I personally reviewed and interpreted this imaging study as follows: My impression: No acute process. Radiologist's impression: EXAMINATION: CT HEAD WITHOUT CONTRAST CLINICAL INFORMATION: Seizure, question of TIA.? COMPARISON: None TECHNIQUE: Contiguous axial imaging was performed from the skull base to vertex without intravenous administration of contrast. Coronal and sagittal reformatted images were obtained. Motion artifact limits evaluation, especially at the skull base. This CT examination was performed using dose optimization techniques as appropriate, variously including the following: *Automated exposure control *Adjustment of mA and/or kV according to patient size (this includes techniques or standardized protocols for targeted exams where dose is matched to indication/reason for exam; i.e. extremities or head) *Use of iterative reconstruction technique DLP: 738.52 mGy-cm FINDINGS: There is mild widening of the cortical sulci and associated ventriculomegaly. The lateral ventricles are symmetrical. Mild periventricular microvascular changes are seen. The third and fourth ventricles are in their normal midline position. The basilar and prepontine cisterns are unremarkable. There is no acute intra or extracerebral abnormality. There is no mass effect or midline shift. Sections through the bony calvarium are unremarkable. The orbits are intact. The paranasal sinuses are clear. The mastoid air cells are clear. Mild anterior nasal septal deviation, apex to the left. CT/CT head/brain wo IV con IMPRESSION: No acute intracranial pathology. Dictated By: Aki Bueno MD Signed By: Electronically signed by Aki Bueno MD 10/01/[address] scan - abdomen: Attestation: I personally reviewed and interpreted this imaging study as follows: My impression: No acute process. Radiologist's impression: EXAMINATION: CT ABDOMEN AND PELVIS WITHOUT CONTRAST? CLINICAL INFORMATION: Abdominal pain.? COMPARISON: None? TECHNIQUE: Multidetector volumetric imaging was performed from the superior aspect of the liver through the pubic symphysis. Sagittal and coronal reformatted images were obtained on the technologist's workstation.? This CT examination was performed using dose optimization techniques as appropriate, variously including the following: *Automated exposure control *Adjustment of mA and/or kV according to patient size (this includes techniques or standardized protocols for targeted exams where dose is matched to indication/reason for exam; i.e. extremities or head) *Use of iterative reconstruction technique DLP: 901 mGy-cm FINDINGS: LUNG BASES: There is emphysematous changes of both lung bases with chronic scarring or atelectasis in the dependent lung bases. Minimal bilateral posterior pleural thickening with dense right diaphragmatic pleural calcification. There are coronary artery calcifications present. LIVER, GALLBLADDER, AND BILIARY TREE: The liver is normal in size, shape, and attenuation. No focal hepatic lesion or biliary ductal dilatation is present. The gallbladder is unremarkable with no evidence of radiopaque gallstones, gallbladder wall thickening, or obvious pericholecystic inflammatory changes.? PANCREAS: Unremarkable.? SPLEEN: Unremarkable.? ADRENAL GLANDS: Unremarkable.? KIDNEYS AND URETERS: The kidneys are normal in size, shape, and attenuation. No hydronephrosis, hydroureter, or calculi seen. Mild bilateral perinephric stranding is seen. There is extensive renal artery calcifications present.? BLADDER: Unremarkable.? GASTROINTESTINAL TRACT: There is diffuse colonic diverticulosis with scattered stool and gas seen throughout the colon. The small bowel loops are normal caliber. Appendix is normal caliber. No inflammatory process seen the abdomen or pelvis.? ABDOMINAL WALL: No significant hernia is appreciated.? LYMPH NODES: Normal. VASCULAR: There is atherosclerotic calcification of abdominal aorta This branches without abdominal aortic aneurysm.. There is dense atherosclerotic calcification of common iliac and external iliac arteries. PELVIC VISCERA: There is no free air or free fluid. A left inguinal hernia containing a loop of sigmoid colon is noted. No proximal bowel obstruction. OSSEOUS STRUCTURES: There is a lytic or sclerotic process seen. There is mild degenerative disc changes L4-L5 disc level with ventral spondylosis.? CT/CT abdomen pelvis wo IV con IMPRESSION: 1.? No acute intra-abdominal process seen. 2.? Diffuse colonic diverticulosis without diverticulitis. Mild constipation. 3.? 3. Left inguinal hernia containing a loop of sigmoid colon.. No inflammatory process within the hernia. ? Fleischner guidelines were followed. Dictated By: Dionisio Mcnulty MD Signed By: Electronically signed by Dionisio Mcnulty MD 10/01/22 1532 ECG Data Attestation: I personally reviewed and interpreted this ECG as follows: Prior ECG tracings: available for review Interpretation: Vent. Rate: 079 BPM ? ? Atrial Rate: 079 BPM P-R Int: 210 ms? QRS Dur: 096 ms QT Int: 376 ms ? ? ? P-R-T Axes: 064 036 036 degrees QTc Int: 431 ms ? Sinus rhythm with 1st degree A-V block RSR' or QR pattern in V1 suggests right ventricular conduction delay Abnormal ECG When compared with ECG of 02-OCT-2021 16:27, [place] interval has increased ? Electronically Signed By:MALLY MILES MD Dictated By: Carlo Miles MD Signed By: Electronically signed by Carlo Miles MD 10/01/22 1405 Critical Care Time Critical Care Time Critical Care Time: Yes Total Critical Care Time: 30 Attestation: I spent 30 minutes of Critical Care Time with this patient. This does not include time spent on separately reported billable procedures. Discharge Plan Discharge Clinical Impression: Anemia Patient Disposition: Admitted As Inpatient
--- NOTE | 2022-10-01 09:09 | ECG_ITS ---
Test Reason : weakness Blood Pressure : / mmHG Vent. Rate : 079 BPM Atrial Rate : 079 BPM P-R Int : 210 ms QRS Dur : 096 ms QT Int : 376 ms P-R-T Axes : 064 036 036 degrees QTc Int : 431 ms Sinus rhythm with 1st degree A-V block RSR' or QR pattern in V1 suggests right ventricular conduction delay Abnormal ECG When compared with ECG of 02-OCT-2021 16:27, [place] interval has increased Referred By: Hemalatha Chamberlain Electronically Signed By:MALLY MILES MD
--- OUTSIDE RECORDS SUMMARY | 2022-10-01 09:13 | XMS_ITS | Continuity of Care Document ---
:1950 Author Organization [facility] Care Team Providers Name Role Phone [facility] Unavailable Unavailable Problems Combined list of problems from Department of Defense and Veterans Affairs facilities. It does not include entries that were removed or entered in error. Problem Status Onset Problem Type Date of Comments Source Date Resolution Carcinoma in situ Active Condition [facility] [place] [facility] Carcinoma in situ Active Condition [facility] [place] [facility] Carotid artery Active Condition [facility] [place] [facility] Cervical disc Active Condition [facility] disease [facility] [place] [facility] COPD - Chronic Active Condition Oct 26 [facility] Obstructive 2020 Entered [facility] Pulmonary Disease By: HARMAN GOLD (SCT [id number]) MICHELLE TRIPLETT Comment: following with Dr Sher DVT - Deep vein Active Condition [facility] [place] thrombosis H/O: Deep vein Active Condition [facility] [place] [facility] Hyperlipidemia (SCT Active Condition [facility] [id number][facility] [place] [facility] Hypothyroidism (SCT Active Condition [facility] [id number][facility] [place] [facility] Insomnia (SCT Active Condition [facility] [id number][facility] [place] [facility] OA - Osteoarthritis Active Condition [facility] (SCT [id number]) [facility] [place] [facility] Onychomycosis Active Condition [facility] [place] [facility] Peripheral vascular Active Condition [facility] disease [facility] [place] [facility] Reduced mobility Active Condition [facility] [place] [facility] Tinnitus Active Condition [facility] [place] [facility] Diagnosis: Active Diagnosis [facility] ICD-10-CM Z74.09 W[facility] RN Other reduced [place] mobilitywith HCS Provider Comments: Reduced mobility (SCT [id number]) Diagnosis: Active Diagnosis [facility] ICD-10-CM B35.1 W[facility] N Tinea unguiumwith [place] Provider Comments: H CS Onychomycosis (SCT [id number]) Diagnosis: Active Diagnosis [facility] ICD-10-CM Z46.1 W[facility] N Encounter for [place] fitting and HCS adjustment of hearing aidwith Provider Comments: Encounter for Fitting and Adjustment of Hearing Aid Diagnosis: [facility] Z71.9 W[facility] N Counseling, [place] unspecifiedwith HCS Provider Comments: Counseling, unspecified Diagnosis: Active Diagnosis [facility] ICD-10-CM J44.9 W[facility] N Chronic obstructive [place] pulmonary disease, H CS unspecifiedwith Provider Comments: Chronic Obstructive Pulmonary Disease, unspecified Diagnosis: Active Diagnosis [facility] ICD-10-CM J44.9 W[facility] N Chronic obstructive [place] pulmonary disease, H CS unspecifiedwith Provider Comments: COPD - Chronic Obstructive Pulmonary Disease ([facility] [id number]) Diagnosis: Active Diagnosis [facility] ICD[facility]10[facility]CM Z51.81 WST RN Encounter for [place] therapeutic drug HCS level monitoringwith Provider Comments: Therapeutic Drug Level Monitoring Diagnosis: Active Diagnosis [facility] ICD-10-CM H25.13 WST RN Age-related nuclear [place] cataract, HCS bilateralwith Provider Comments: Age-Related Nuclear Cataract, Bilateral Diagnosis: Active Diagnosis [facility] ICD-10-CM Z23 [facility]N Encounter for [place] immunizationwith HCS Provider Comments: Encounter for immunization (ICD-10-CM Z23.) Diagnosis: Active Diagnosis [facility] ICD-10-CM Z74.1 W[facility] N Need for assistance [place] with personal HCS carewith Provider Comments: Need for Assistance with Personal Care Diagnosis: Active Diagnosis [facility] ICD-10-CM Z74.1 [facility] N Need for assistance [place] with personal HCS carewith Provider Comments: Need for assistance with personal care Diagnosis: Active Diagnosis [facility] ICD-10-CM Z74.1 [facility] N Need for assistance [place] with personal HCS carewith Provider Comments: Medications Combined list of outpatient medications from Department of Defense and Veterans Affairs facilities. Medications provided include 1) outpatient medications from the last 15 months, and 2) patient-reported medications. Medication Details Route Status Patient Prescription Prescription Last Ordering Order Source Instructions Expires Number Dispense Provider Date Date ALBUTEROL INHALE 2 INHALA ACTIVE 11/04/2022 [id number] SULJUVENALV AN, 90MCG/ACTUA PUFFS BY TION 2 RAHEEL Bowie 2020 C NTRL T (CFC-F) MOUTH ORAL WSTRN INHL,ORAL,8 EVERY 4 [place] .5GM DOSE HOURS SETS COUNTER NEEDED HCS APIXABAN TAKE ORAL ACTIVE 06/19/2023 [id number] HAMZAHE 5MG TAB ONE-HALF 2 STEVEN 2021 CNTRL TABLET WSTRN BY MOUTH [place] TWICE SETS DAILY TO HCS PREVENT BLOOD CLOTS. APIXABAN TAKE ORAL DISCONT 11/21/2022 [id number] TRIPLETT, 5MG TAB ONE-HALF INUED 2 RAHEEL J 2021 CNTRL TABLET WSTRN BY MOUTH [place] TWICE SETS DAILY TO HCS PREVENT BLOOD CLOTS. APIXABAN TAKE ORAL DISCONT 06/19/2023 [id number] HAMZAHE 5MG TAB ONE-HALF INUED 2 STEVEN2021 CNTRL TABLET WSTRN BY MOUTH [place] TWICE SETS DAILY TO HCS PREVENT BLOOD CLOTS. APIXABAN TAKE ORAL DISCONT 05/18/2022 [id number] UZIEL, 5MG TAB ONE-HALF INUE 1 RAHEEL Bowie 2020 CNTRL TABLET WSTRN BY MOUTH [place] TWICE SETS DAILY HCS PLEASE NOTE CHANGE IN DIRECTIO N ASPIRIN TAKE ONE ORAL ACTIVE UZIEL, 81MG TAB,EC TABLET RAHEEL Bowie 2018 CNT RL BY MOUTH WSTRN TWICE [place] DAILY SETS HCS ATORVASTATI TAKE ORAL DISCONT 04/13/2023 [id number] SULLIVA N, N CA 40MG ONE-HALF INUED 2 RAHEEL Bowie 2021 CNT RL TAB TABLET WSTRN BY MOUTH [place] AT SETS BEDTIME HCS FOR CHOLESTE ROL CLOTRIMAZOL APPLY TOPICA ACTIVE 12/22/2022 [id number] SA JI, 02/03/ [facility] E 1% DIRECTED LLY 2 SHILA 2021 CNTRL SOLN,TOP TOPICALL WSTRN Y ONCE [place] DAILY SETS FOR HCS FUNGAL INFECTIO N LEVOTHYROXI TAKE ONE ORAL DISCONT 01/16/2023 [id number] TRIPLETT, NE NA 25MCG TABLET INUED 2 RAHEEL Bowie 2021 CNT RL TAB BY MOUTH (EDIT) WSTRN (SYNTHROID) EVERY [place] MORNING SETS 30 HCS MINUTES BEFORE BREAKFAS T FOR THYROID - TAKE ON AN EMPTY STOMACH WITH A FULL GLASS OF WATER LEVOTHYROXI TAKE ONE ORAL DISCONT 01/13/2022 [id number] TRIPLETT, NE NA 25MCG TABLET INUE 1 RAHEEL Bowie 2020 CNT RL TAB BY MOUTH W[facility] (SYNTHROID) EVERY [place] MORNING SETS 30 HCS MINUTES BEFORE BREAKFAS T FOR THYROID - TAKE ON AN EMPTY STOMACH WITH A FULL GLASS OF WATER LEVOTHYROXI TAKE ONE ORAL ACTIVE 05/25/2023 [id number] FLORENCE GNRADHA NE NA 50MCG TABLET 2 ,2021 CNTR L TAB BY MOUTH F WSTRN (SYNTHROID) EVERY [place] MORNING SETS 30 HCS MINUTES BEFORE BREAKFAS T FOR THYROID - TAKE ON AN EMPTY STOMACH WITH A FULL GLASS OF WATER OLODATEROL INHALE 2 INHALA ACTIVE 04/24/2023 [id number] [facility] [place]OT [place]FF[place] (1 TION 2 AMMAD S 2021 CNT RL ROPIUM DOSE) BY ORAL WSTRN 2.5MCG/ACTU MOUTH [place] AT ONCE SETS INHL,ORAL,6 DAILY HCS 0D,4GM OLODATEROL INHALE 2 INHALA DISCONT 10/25/2022 [id number] [place] [facility] [place] 2.[place]/TIOT PUFFS (1 TION INUED 2 AMMAD S 2020 CNT RL ROPIUM DOSE) BY ORAL WSTRN 2.5MCG/ACTU MOUTH [place] AT ONCE SETS INHL,ORAL,6 DAILY HCS 0D,4GM SIMVASTATIN TAKE ORAL ACTIVE 05/24/2023 [id number] TRIPLETT , 80MG TAB ONE-HALF 2 RAHEEL Bowie 2021 CNTR L TABLET WSTRN BY MOUTH [place] ONCE SETS DAILY HCS FOR CHOLESTE ROL TRAZODONE TAKE ONE ORAL 09/20/2022 [id number] SULLI VAN, HCL 50MG TABLET 2 RAHEEL Bowie 2020 CNTRL TAB BY MOUTH WSTRN AT [place] BEDTIME SETS HCS VARENICLINE TAKE ONE ORAL ACTIVE TRIPLETT, 1MG TAB TABLET RAHEEL Bowie 2018 CNTRL BY MOUTH [facility]N TWICE [place] DAILY SETS HCS Allergies, Adverse Reactions, Alerts Combined list of allergies from Department of Defense and Veterans Affairs facilities. It does not include entries that were removed or entered in error. Substance Category Reaction Severity Reaction Status Date Comments S ource type Reported MOXIFLOXACIN Propensity Eruption Propensity active [facility] to adverse to adverse 9 WS TRN reactions reactions [place] to drug to drug ETS HCS (finding) (finding) Immunizations Combined list of available immunizations from the Department of Defense and Veterans Affairs facilities. Immunization Series Date Administered Site Reaction Lot CVX Drug [facility] atus Comments Source Given By Number Code Hand Marker COVID-19 3 complet MOD; [facility] (MODERNA), 2020 ed [id number]; CNTRL MRNA, LNP-S, 02 WSTRN PF, 100 MCG 2 [place] SS[facility] OR 50 MCG SETS DOSE HCS INFLUENZA complet V A VACCINE, 2020 ed CNTRL QUADRIVALENT, WSTRN ADJUVANTED [place] SETS HCS ZOSTER 2 complet [facility] RECOMBINANT 2020 ed CN TRL [facility] [place] [facility] HCS COVID-19 2 complet MOD; VA (MODERNA), 2020 ed [id number]; CNTRL MRNA, LNP-S, 02 [facility]N PF, 100 1 [place] MCG/0.5 ML SET S DOSE HCS COVID-19 1 complet MOD; [facility] (MODERNA), 2020 ed [id number]; CNTRL MRNA, LNP-S, 02 WSTRN PF, 100 1 [place] MCG/0.5 ML SET S DOSE HCS INFLUENZA, 12/14/ 150 complet VA INJECTABLE, 2019 ed CN TRL QUADRIVALENT, WSTRN PRESERVATIVE M [facility] FREE SETS HCS ZOSTER 1 complet [facility] RECOMBINANT 2019 ed CN TRL [facility] [place] [facility] [facility] PNEUMOCOCCAL complet VA POLYSACCHARID 2019 ed CNTRL E PPV23 [facility] [place] [facility] [facility] TDAP complet Site: [facility] 2019 ed Left [facility]TRL Deltoid [facility] [place] [facility] INFLUENZA, complet Out si de [facility] SEASONAL, 2018 ed Provider C NTRL INJECTABLE WST RN [place] [facility] HCS INFLUENZA, complet [facility] SEASONAL, 2017 ed CNTR L INJECTABLE WST RN [place] [facility] [facility] Results Combined list of recent chemistry, hematology and other laboratory results from Department of Defense and Veterans Affairs, ranging from 15 months to all on record, depending upon the facility. Order Results Value Reference Date Interpretation Specimen Commen ts Source Name Range THYROID THYROXINE 0.93 0.6 - 1.6 05/23 Specimen Typ e: [place] [facility] T4 (T4) FREE /2021 No comment ent ered. WSTRN FREE(FT4) [MASS/VOLUM Ordering Provider: RAHEEL TRIPLETT] IN SERUM Report Rele ased Date/Time: May 14, 2022 12:00 PM TS HCS OR PLASMA Reporting Lab : [place] [facility] [facility] [address] [address] Performing Lab: [place] [facility] [facility] [address] [facility] [address] TSH THYROTROPIN 5.56 0.35 - 07/ H Specimen Typ e: [place] [facility] [UNITS/VOLU 5. No comment e ntered. WSTRN ME] IN Ordering Provid er: RAHEEL TRIPLETT [facility] OR Report Release d Date/Time: May 14, 2022 12:00 PM TS HCS PLASMA Reporting Lab: [place] [facility] [facility] [address] [address] Performing Lab: [place] [facility] [facility] [address] [address] LIVER PROTEIN 7.3 6.0 - 8.3 05/23 Specimen Type: SER[facility] FUNCTION [MASS/VOLUM /2021 No comment entered. WSTRN E] IN SERUM Ordering Pr ovider: RAHEEL TRIPLETT OR PLASMA Report Releas ed Date/Time: May 14, 2022 12:00 PM TS [facility] Reporting Lab: [facility] [place] [facility] [address] [address] Performing Lab: [facility] [place] [facility] [address] [address] LIVER ALBUMIN 3.8 3.5 - 5.0 07 Specimen Type: SERUM [facility] FUNCTION [MASS/VOLUM /2021 No comment entered. WSTRN E] IN SERUM Ordering Pr ovider: RAHEEL TRIPLETT OR PLASMA Report Releas ed Date/Time: May 14, 2022 12:00 PM [facility] Reporting Lab: [facility] [place] [address] [address] Performing Lab: [facility] [place] [place] [address] [address] LIVER ALKALINE 41 40 - 150 05/23 Specimen Type: SERUM [facility] FUNCTION PHOSPHATASE No comment entered. WSTRN [ENZYMATIC Ordering Pro vider: RAHEEL TRIPLETT ACTIVITY/VO Report Rele ased Date/Time: May 14, 2022 12:00 PM [facility] LUME] IN Reporting Lab: [facility] [place] [facility] SERUM [place] [address] [address] PLASMA Performing Lab: [facility] [place] [address] [address] LIVER ASPARTATE 14 5 - 34 05/23 Specimen Type: SERUM [facility] FUNCTION AMINOTRANSF /2021 No comment entered. WSTRN ERASE Ordering Provid er: RAHEEL TRIPLETT [ENZYMATIC Report Relea sed Date/Time: May 14, 2022 12:00 PM [facility] ACTIVITY/VO Reporting L ab: [facility] [place] [facility] [place]] [place] [address] [address] SERUM OR Performing Lab : [facility] [place] [facility] PLASMA [address] [address] LIVER ALANINE 9 6 - 55 05/23 Specimen Type: S KRISTY [place] CN[place] FUNCTION AMINOTRANSF /2021 No comment entered. WSTRN ERASE Ordering Provid er: RAHEEL TRIPLETT [ENZYMATIC Report Relea sed Date/Time: May 14, 2022 12:00 PM [facility] ACTIVITY/VO Reporting L ab: [place] CNTR [place] [facility] [place]] [place] [address] [address] SERUM OR [facility] [place] [facility] PLASMA [address] [address] LIVER BILIRUBIN.T 0.4 0.2 - 1.2 05/23 Specimen T ype: [place] [facility] FUNCTION OTAL /2021 No comment ente red. WSTRN [MASS/VOLUM Ordering Pr ovider: RAHEEL TRIPLETT E] IN SERUM Report Rele ased Date/Time: May 14, 2022 12:00 PM [facility] OR PLASMA Reporting Lab : [facility] [place] [facility] [address] [address] Performing Lab: [facility] [place] [address] [address] HEMOGLOBI HEMOGLOBIN 5.1 4.0 - 5.6 05/23 Specimen Type: BLOOD [facility] N A1C A1C/HEMOGLO /2021 Comment: Va lues obtained from A1C measurements can vary. For typical A1C assays, a reported value of 7.0 could actually be between 6.72 and 7.28 if measured by a reference method. A reported value of 9 WSTRN PANEL BIN.TOTAL .0 could actua lly be between 8.73 and 9.27. Ref: [email or web address] [place] IN BLOOD BY Ordering Pr ovider: RAHEEL TRIPLETT [facility] HPLC Report Released Date/Time: May 14, 2022 12:00 PM Reporting Lab: [facility] [place] [facility] [address] [address] Performing Lab: [facility] [place] [place] [address] PT & INR INR IN 1.2 05/23 Specimen Type: PLASMA [facility] (PROTIME) PLATELET No comment en tered. WSTRN POOR PLASMA Ordering Pr ovider: RAHEEL TRIPLETT BY Report Released Date/Time: May 14, 2022 12:00 PM TS [facility] COAGULATION Reporting L ab: [facility] [place] [facility] [address] [address] Performing Lab: [facility] [place] [facility] [address] [address] PT & INR PROTHROMBIN 13.9 10.0 - 07/06 H Specimen Ty pe: PLASMA [facility] (PROTIME) TIME (PT) 13.1 No comment e ntered. WSTRN Ordering Provid er: RAHEEL TRIPLETT Report Released Date/Time: May 14, 2022 12:00 PM TS HCS Reporting Lab: [facility] [place] [facility] [address] [address] Performing Lab: [facility] [place] [facility] [address] [address] CBC AND LEUKOCYTES 8.15 4.50 - 07/06 Specimen Type : BLOOD [facility] DIFF [#/VOLUME] 11.00 No comment en tered. WSTRN (AUTO) IN BLOOD BY Ordering Pr ovider: RAHEEL TRIPLETT AUTOMATED Report Releas ed Date/Time: May 14, 2022 12:00 PM TS [facility] COUNT Reporting Lab: [facility] [place] [facility] [address] [address] Performing Lab: [facility] [place] [facility] [address] [address] CBC AND ERYTHROCYTE 4.51 4.23 - 0706 Specimen Typ e: BLOOD [facility] DIFF S 5.66 No comment enter ed. WSTRN (AUTO) [#/VOLUME] Ordering Pro vider: RAHEEL TRIPLETT IN BLOOD BY Report Rele ased Date/Time: May 14, 2022 12:00 PM TS [facility] AUTOMATED Reporting Lab : [facility] [place] [facility] COUNT [address] [address] Performing Lab: [facility] [place] [facility] [address] [address] CBC AND HEMOGLOBIN 13.2 12.8 - 17 07 Specimen Ty pe: BLOOD [facility] DIFF [MASS/VOLUM /2021 No comment e ntered. WSTRN (AUTO) E] IN BLOOD Ordering Pr ovider: RAHEEL TRIPLETT Report Released Date/Time: May 14, 2022 12:00 PM TS HCS Reporting Lab: [facility] [place] [facility] [address] [address] Performing Lab: [facility] [place] [facility] [address] [address] CBC AND HEMATOCRIT 41.3 39.2 - 07 Specimen Type : BLOOD [facility] DIFF [VOLUME 50.4 No comment enter ed. WSTRN (AUTO) FRACTION] Ordering Prov ider: RAHEEL TRIPLETT OF BLOOD BY Report Rele ased Date/Time: May 14, 2022 12:00 PM TS HCS AUTOMATED Reporting Lab : [facility] [place] [facility] COUNT [address] [address] Performing Lab: [facility] [place] [facility] [address] [address] CBC AND MCV 91.6 82 - 99 05/23 Specimen Type: B LOOD [facility] DIFF [ENTITIC /2021 No comment ente red. WSTRN (AUTO) VOLUME] BY Ordering Pro vider: RAHEEL TRIPLETT AUTOMATED Report Releas ed Date/Time: May 14, 2022 12:00 PM TS [facility] COUNT Reporting Lab: [facility] [place] [facility] [address] [address] Performing Lab: [facility] [place] [facility] [address] [address] CBC AND MCHC 32.0 30.8 - 07 Specimen Type: B LOOD [facility] DIFF [MASS/VOLUM 35.1 No comment e ntered. WSTRN (AUTO) E] BY Ordering Provid er: RAHEEL TRIPLETT AUTOMATED Report Releas ed Date/Time: May 14, 2022 12:00 PM TS [facility]CS COUNT Reporting Lab: [facility] [place] [facility] [address] [address] Performing Lab: [facility] [place] [facility] [address] [address] CBC AND PLATELETS 237 140 - 360 05/23 Specimen Typ e: BLOOD [facility] DIFF [#/VOLUME] No comment en tered. WSTRN (AUTO) IN BLOOD BY Ordering Pr ovider: RAHEEL TRIPLETT AUTOMATED Report Releas ed Date/Time: May 14, 2022 12:00 PM TS [facility] COUNT Reporting Lab: [facility] [place] [facility] [address] [address] Performing Lab: [facility] [place] [facility] [address] [address] CBC AND ERYTHROCYTE 12.9 12.0 - 05/23 Specimen Typ e: BLOOD [facility] DIFF DISTRIBUTIO 16.0 No comment e ntered. WSTRN (AUTO) N WIDTH Ordering Provid er: RAHEEL TRIPLETT [RATIO] BY Report Relea sed Date/Time: May 14, 2022 12:00 PM TS HCS AUTOMATED Reporting Lab : [facility] [place] [facility] COUNT [address] [address] Performing Lab: [facility] [place] [facility] [address] [address] CBC AND MONOCYTES 0.56 0.30 - 05/23 Specimen Type: BLOOD [facility] DIFF [#/VOLUME] 1.10 No comment en tered. WSTRN (AUTO) IN BLOOD BY Ordering Pr ovider: RAHEEL TRIPLETT AUTOMATED Report Releas ed Date/Time: May 14, 2022 12:00 PM TS [facility] COUNT Reporting Lab: [facility] [place] [facility] [address] [address] Performing Lab: [facility] [place] [facility] [address] [address] CBC AND MCH 29.3 26.2 - 07 Specimen Type: B LOOD [facility] DIFF [ENTITIC 32.6 No comment ente red. WSTRN (AUTO) MASS] BY Ordering Provi mary: RAHEEL TRIPLETT [place] AUTOMATED Report Releas ed Date/Time: May 14, 2022 12:00 PM TS [facility] COUNT Reporting Lab: [facility] [place] [facility] [address] [address] Performing Lab: [facility] [place] [facility] [address] [address] CBC AND NEUTROPHILS 74.7 07/06 Specimen Typ e: BLOOD [facility] DIFF / No comment enter ed. WSTRN (AUTO) LEUKOCYTES Ordering Pro vider: RAHEEL TRIPLETT [place] IN BLOOD BY Report Rele ased Date/Time: May 14, 2022 12:00 PM TS HCS AUTOMATED Reporting Lab : [facility] [place] [facility] COUNT [address] [address] Performing Lab: [facility] [place] [facility] [address] [address] CBC AND LYMPHOCYTES 11.7 07/06 Specimen Typ e: BLOOD [facility] DIFF / No comment enter ed. WSTRN (AUTO) LEUKOCYTES Ordering Pro vider: RAHEEL TRIPLETT [place] IN BLOOD BY Report Rele ased Date/Time: May 14, 2022 12:00 PM TS [facility]CS AUTOMATED Reporting Lab : [facility] [place] [facility] COUNT [address] [address] Performing Lab: [facility] [place] [facility] [address] [address] CBC AND MONOCYTES/1 6.9 07/06 Specimen Typ e: BLOOD [facility] DIFF No comment enter ed. WSTRN (AUTO) LEUKOCYTES Ordering Pro vider: RAHEEL TRIPLETT [place] IN BLOOD BY Report Rele ased Date/Time: May 14, 2022 12:00 PM TS [facility]CS AUTOMATED Reporting Lab : [facility] [place] [facility] COUNT [address] [address] Performing Lab: [facility] [place] [facility] [address] [address] CBC AND EOSINOPHILS 5.8 07/06 Specimen Typ e: BLOOD [facility] DIFF /100 No comment enter ed. WSTRN (AUTO) LEUKOCYTES Ordering Pro vider: RAHEEL TRIPLETT IN BLOOD BY Report Rele ased Date/Time: May 14, 2022 12:00 PM TS HCS AUTOMATED Reporting Lab : [facility] [place] [facility] COUNT [address] [address] Performing Lab: [facility] [place] [facility] [address] [address] CBC AND BASOPHILS/1 0.5 05/23 Specimen Typ e: BLOOD [facility] DIFF No comment enter ed. WSTRN (AUTO) LEUKOCYTES Ordering Pro vider: RAHEEL TRIPLETT IN BLOOD BY Report Rele ased Date/Time: May 14, 2022 12:00 PM TS HCS AUTOMATED Reporting Lab : [facility] [place] [facility] COUNT [address] [address] Performing Lab: [facility] [place] [facility] [address] [address] CBC AND NEUTROPHILS 6.10 2.20 - 07 Specimen Typ e: BLOOD [facility] DIFF [#/VOLUME] 7.60 /2021 No comment en tered. WSTRN (AUTO) IN BLOOD BY Ordering Pr ovider: RAHEEL TRIPLETT AUTOMATED Report Releas ed Date/Time: May 14, 2022 12:00 PM TS [facility] COUNT Reporting Lab: [facility] [place] [facility] [address] [address] Performing Lab: [facility] [place] [facility] [address] [address] CBC AND LYMPHOCYTES 0.95 1.00 - 07/06 L Specimen Typ e: BLOOD [facility] DIFF [#/VOLUME] 3.20 No comment en tered. WSTRN (AUTO) IN BLOOD BY Ordering Pr ovider: RAHEEL TRIPLETTCHOCTAVIO AUTOMATED Report Releas ed Date/Time: May 14, 2022 12:00 PM TS [facility] COUNT Reporting Lab: [facility] [place] [facility] [address] [address] Performing Lab: [facility] [place] [facility] [address] [address] CBC AND EOSINOPHILS 0.47 0.03 - 07/06 H Specimen Typ e: BLOOD [facility] DIFF [#/VOLUME] 0.44 /2021 No comment en tered. WSTRN (AUTO) IN BLOOD BY Ordering Pr ovider: RAHEEL TRIPLETT AUTOMATED Report Releas ed Date/Time: May 14, 2022 12:00 PM TS [facility] COUNT Reporting Lab: [facility] [place] [facility] [address] [address] Performing Lab: [facility] [place] [facility] [address] [address] CBC AND BASOPHILS 0.04 0.01 - 07/06 Specimen Type: BLOOD [facility] DIFF [#/VOLUME] 0.13 No comment en tered. WSTRN (AUTO) IN BLOOD BY Ordering Pr ovider: RAHEEL TRIPLETT AUTOMATED Report Releas ed Date/Time: May 14, 2022 12:00 PM TS [facility] COUNT Reporting Lab: [facility] [place] [facility] [address] [address] Performing Lab: [facility] [place] [facility] [address] [address] CBC AND IMMATURE 0.4 06 Specimen Type: BLOOD [facility] DIFF GRANULOCYTE /2021 No comment e ntered. WSTRN (AUTO) S/100 Ordering Provid er: RAHEEL TRIPLETT LEUKOCYTES Report Relea sed Date/Time: May 14, 2022 12:00 PM TS HCS IN BLOOD BY Reporting L ab: [facility] [place] [facility] AUTOMATED [address] [facility] [address] COUNT Performing Lab: [facility] [place] [facility] [address] [facility] [address] CBC AND IMMATURE 0.03 0.00 - 07/06 Specimen Type: BLOOD [facility] DIFF GRANULOCYTE 0.06 No comment e ntered. WSTRN (AUTO) S Ordering Provid er: RAHEEL TRIPLETT [#/VOLUME] Report Relea sed Date/Time: May 14, 2022 12:00 PM TS [facility] IN BLOOD Reporting [facility] [address] [facility] [address] Performing [facility]: [facility] [address] [address] LIPID CHOLESTEROL 243 7 - 199 07/06 H Specimen Typ e: SERUM [place] [facility] PANEL, [MASS/VOLUM /2021 No comment e ntered. WSTRN NON E] IN SERUM Ordering Pr ovider: RAHEEL TRIPLETT FASTING OR PLASMA Report Releas ed Date/Time: May 23, 2022 10:20 AM TS [facility] Reporting [facility] [address] [facility] [address] Performing Lab: [place] [facility] [address] LIPID TRIGLYCERID 123 0 - 150 07/06 Specimen Typ e: SERUM [place] [facility] PANEL, E /2021 No comment enter ed. WSTRN NON [MASS/VOLUM Ordering Pr ovider: RAHEEL TRIPLETTCHOCTAVIO FASTING E] IN SERUM Report Rele ased Date/Time: May 23, 2022 10:20 AM TS [facility] OR PLASMA Reporting Lab [facility] [address] [address] Performing Lab: [facility] [address] [address] [address] LIPID CHOLESTEROL 178 0 - 129 07/06 H Specimen Typ e: [place] [facility] PANEL, IN LDL /2021 No comment enter ed. WSTRN NON [MASS/VOLUM Ordering Pr ovider: RAHEEL TRIPLETT FASTING E] IN SERUM Report Rele ased Date/Time: May 23, 2022 10:20 AM TS HCS OR PLASMA Reporting Lab : [facility] [place] [facility] BY [address] [address] CALCULATION Performing Lab: [facility] [address] [address] LIPID CHOLESTEROL 6.1 07/06 Specimen Typ e: [place] [facility] PANEL, .TOTAL/CHOL /2021 No comment e ntered. WSTRN NON ESTEROL IN Ordering Pro vider: RAHEEL TRIPLETT FASTING HDL [MASS Report Releas ed Date/Time: May 23, 2022 10:20 AM TS HCS RATIO] IN Reporting Lab : [facility] [place] [address] [address] PLASMA Performing Lab: [facility] WSTRN [facility] [address] [address] LIPID CHOLESTEROL 40 40 - 60 07/06 Specimen Typ e: [facility], IN HDL /2021 No comment enter ed. WSTRN NON [MASS/VOLUM Ordering Pr ovider: RAHEEL TRIPLETT FASTING E] IN SERUM Report Rele ased Date/Time: May 23, 2022 10:20 AM TS HCS OR PLASMA Reporting Lab : [facility] WSTRN [facility] [address] [address] Performing Lab: [facility] WSTRN [facility] [address] [address] BASIC UREA 20 7 - 25 07/06 Specimen Type: S KRISTY [facility] METABOLIC NITROGEN /2021 No comment en tered. WSTRN PANEL [MASS/VOLUM Ordering Pr ovider: RAHEEL TRIPLETT (non-fast E] IN SERUM Report Re leased Date/Time: May 23, 2022 10:20 AM TS HCS ing) OR PLASMA Reporting Lab : [facility] WSTRN [facility] [address] [address] Performing Lab: [facility]N [facility] [address] [address] BASIC GLUCOSE 121 65 - 100 07/06 H Specimen Type: SERUM [facility] MET[facility]OLIC [MASS/VOLUM /2021 No comment entered. WSTRN PANEL E] IN SERUM Ordering Pr ovider: RAHEEL TRIPLETT (non-fast OR PLASMA Report Rele ased Date/Time: May 23, 2022 10:20 AM TS HCS ing) Reporting Lab: [facility] [address] [address] Performing Lab: [facility]N [facility] [address] [address] BASIC SODIUM 136 135 - 145 07 Specimen Type: SER[facility] METABOLIC [MOLES/VOLU /2021 No comment entered. WSTRN PANEL ME] IN Ordering Provid er: RAHEEL TRIPLETT (non-fast SERUM OR Report Relea sed Date/Time: May 23, 2022 10:20 AM TS [facility] ing) PLASMA Reporting Lab: [facility] [place] [facility] [address] [address] Performing Lab: [facility] [address] [address] BASIC POTASSIUM 4.7 3.5 - 5.0 05/23 Specimen Typ e: SERUM [facility] METABOLIC [MOLES/VOLU /2021 No comment entered. WSTRN PANEL ME] IN Ordering Provid er: RAHEEL TRIPLETT (non-fast SERUM OR Report Relea sed Date/Time: May 23, 2022 10:20 AM TS [facility] ing) PLASMA Reporting Lab: [facility] [place] [address] [address] Performing Lab: [facility] [address] [address] BASIC CHLORIDE 103 100 - 110 05/23 Specimen Type : SERUM [facility] METABOLIC [MOLES/VOLU /2021 No comment entered. WSTRN PANEL ME] IN Ordering Provid er: RAHEEL TRIPLETT (non-fast SERUM OR Report Relea sed Date/Time: May 23, 2022 10:20 AM TS [facility] ing) PLASMA Reporting Lab: [facility] [place] [facility] [address] [address] Performing Lab: [facility] [place] [address] [address] BASIC CARBON 23 20 - 30 05/23 Specimen Type: S KRISTY [facility] METABOLIC DIOXIDE, No comment en tered. WSTRN PANEL TOTAL Ordering Provid er: RAHEEL TRIPLETT (non-fast [MOLES/VOLU Report Re leased Date/Time: May 23, 2022 10:20 AM TS [facility] ing) ME] IN Reporting Lab: [facility] [place] [facility] SERUM [place] [address] [address] PLASMA Performing Lab: [place] [facility] [facility] [facility] [address] [address] BASIC CREATININE 1.21 0.50 - 07 Specimen Type : SERUM [facility] METABOLIC [MASS/VOLUM 1.40 /2021 No comment entered. WSTRN PANEL E] IN SERUM Ordering Pr ovider: RAHEEL TRIPLETT (non-fast OR PLASMA Report Rele ased Date/Time: May 23, 2022 10:20 AM TS HCS ing) Reporting Lab: [place] [facility] [place] [facility] [address] [address] Performing Lab: [place] [facility] [place] [facility] [address] [address] BASIC GLOMERULAR 64 60 05/23 Specimen Type : SERUM [facility] METABOLIC FILTRATION /2021 No comment entered. WSTRN PANEL RATE/1.73 Ordering Prov ider: RAHEEL TRIPLETT (non-fast SQ Report Releas ed Date/Time: May 23, 2022 10:20 AM TS HCS ing) M.PREDICTED Reporting L ab: [facility] [VOLUME [address] [address] RATE/AREA] Performing L ab: [place] [facility] [place] [facility] IN SER[facility], [address] [facility] [address] PLASMA OR BLOOD BY CREATININE- BASED FORMULA (CKD-EPI) THYROID THYROXINE 0.85 0.6 - 1.6 11/03 Specimen Typ e: [place] [facility] T4 (T4) FREE /2020 No comment ent ered. WSTRN FREE(FT4) [MASS/VOLUM Ordering Provider: RAHEEL TRIPLETT] IN SERUM Report Rele ased Date/Time: Nov 03, 2021 11:25 AM TS HCS OR PLASMA Reporting Lab : [place] [facility] [facility] [address] [address] Performing Lab: [facility] [place] [facility] [address] [facility] [facility] [address] PT & INR INR IN 1.4 11/03 Specimen Type: PLASMA [facility] (PROTIME) PLATELET No comment en tered. WSTRN POOR PLASMA Ordering Pr ovider: RAHEEL TRIPLETT BY Report Released Date/Time: Nov 03, 2021 11:25 AM [facility] COAGULATION Reporting L ab: [facility] [place] [facility] ASSAY [address] [address] Performing Lab: [facility] [place] [facility] [address] [address] PT & INR PROTHROMBIN 15.2 10.0 - 11/03 H Specimen Ty pe: PLASMA [facility] (PROTIME) TIME (PT) 13.1 No comment e ntered. WSTRN Ordering Provid er: RAHEEL TRIPLETT Report Released Date/Time: Nov 03, 2021 11:25 AM [facility] Reporting Lab: [facility] [place] [facility] [address] [address] Performing Lab: [facility] [place] [facility] [address] [address] Vital Signs Combined list of inpatient and outpatient Vital Signs from Department of Defense and Veterans Affairs, ranging from 12 months to all on record, depending upon the facility. Vital Sign Value Date Comments Source SYSTOLIC BLOOD PRESSURE 118 05/23/2022 [facility] 09:51:28 [place] [facility] DIASTOLIC BLOOD PRESSURE 71 05/23/2022 [facility] 09:51:[facility] [place] [facility] PULSE OXIMETRY 98% 05/23/2022 [facility] 09:51:[facility] [place] [facility] WEIGHT 205 05/23/2022 [facility] 09[facility]51:[facility] [place] [facility] BMI 29kg/m2 05/23/2022 [facility] 09:51:[facility] [place] [facility] PAIN 0 05/23/2022 [facility] 09:51:[facility] [place] [facility] HEIGHT 71 05/23/2022 [facility] 09[facility] [place] [facility] TEMPERATURE 98.7 05/23/2022 [facility] 09:51:[facility] [place] [facility] PULSE 95 05/23/2022 [facility] 09[facility]51:[facility] [place] [facility] RESPIRATION 20 05/23/2022 [facility] 09:51:[facility] [place] [facility] SYSTOLIC BLOOD PRESSURE 101 11/03/2021 [facility] C [facility] 10:46:21 [place] [facility] DIASTOLIC BLOOD PRESSURE 67 11/03/2021 [facility] 10:46:21 [place] [facility] PULSE OXIMETRY 95% 11/03/2021 [facility] 10:46:21 [place] [facility] WEIGHT 201 11/03/2021 [facility] 10:46:21 [place] [facility] BMI 28kg/m2 11/03/2021 [facility] 10[facility]46:21 [place] [facility] PAIN 0 11/03/2021 [facility] 10:46:21 [place] [facility] HEIGHT 71 11/03/2021 [facility] 10:46:21 [place] [facility] PULSE 109 11/03/2021 [facility] 10:46:21 [place] [facility] RESPIRATION 26 11/03/2021 [facility] 10:46:21 [place] [facility] Encounters Combined list of: 1) Encounters from Department of Veterans Affairs facilities going back up to the last 18 months. 2) Encounters from the Department of Defense facilities going back up to 280 months. Location Location Encounter Encounter Reason Attending ADM DC Stat us Disposition Source Details Type Number For Provider Date Date Visit HC PRO [id number] Diagnos OCHOA WILLIAM 04/03 V A PHONE CALL [id number] is: CN TRL 5-10 MIN ICD-10- WSTRN CM [place] Z74.1 SETS Need HCS for assista nce with persona l care
with Provide r Comment s: Outpatient 05/17 [id number] [place] [facility] [id number] 05/17 [facility] Encounter [id number] /2021 [facility] [place] [facility] CASE 18400-5 Diagnos OCHOA WILLIAM 06/08 [facility] [id number] is: JOSH CN TRL ICD-10- W[facility]N CM [place] Z74.1 SETS Need HCS for assista nce with persona l care
with Provide r Comment s: Need for assista nce with persona l care CASE [id number] Diagnos OCHOA WILLIAM 07/05 [facility] [id number] is: JOSH CN TRL ICD-10- W[facility]N CM [place] Z74.1 SETS Need HCS for assista nce with persona l care
with Provide r Comment s: Need for assista nce with persona l care Outpatient [id number] Diagnos ROSA DIGGS 07/18 [facility] Encounter [id number] is: JUDSON J CNTRL ICD-10- WSTRN CM [place] Z74.1 SETS Need HCS for assista nce with persona l care
with Provide r Comment s: Need for Assista nce with Persona l Care Outpatient 52202-709/11 [facility] Encounter [id number] [facility] [place] [facility] OFF[facility] O/P Diagnos SHAYANLIVIER 09/14 [facility] EST [id number] is: HL CNTRL MINIMAL ICD-10- PRINCESS WSTRN PROB CM Z23 [place] Encount SETS er for HCS immuniz ation<b r/>with Provide r Comment s: Encount er for immuniz ation (ICD-10 -CM Z23.) DETERMINE 28739-3 Diagnos ANIKETCHIQUITA 09/14 [facility] REFRACTIVE [id number] is: H B CNTR L STATE ICD-10- WSTRN CM [place] H25.13 SETS Age-rel HCS ated nuclear catarac t, bilater al
with Provide r Comment s: Age-Rel ated Nuclear Catarac t, Bilater al Outpatient [id number] 09/15 [facility] Encounter [id number] [facility] [place] [facility] [place] [id number] 09/19 [facility] Encounter [id number] [facility] [place] [facility] [place] [id number] 09/19 [facility] Encounter [id number] [facility] [place] [facility] 67399-5.63 09/26 [facility] Encounter [id number] [facility] [place] [facility] [id number] 10/08 [facility] Encounter [id number] [facility] [place] [facility] [place] [id number] 10/11 [facility] Encounter [id number] [facility] [place] [facility] [id number] 10/24 [facility] Encounter [id number] [facility] [place] [facility] [id number] 10/24 [facility] Encounter [id number] [facility] [place] [facility] [facility] [place] [id number] 10/25 [facility] Encounter [id number] [facility] [place] [facility] OFFICE O/P [id number] Diagnos GAVIN DAVIDSON 10/26 [facility] EST [id number] is: NON P CNTRL MINIMAL ICD-10- WSTRN PROB CM [place] J44.9 SETS Chronic HCS obstruc tive pulmona ry disease , unspeci fied
with Provide r Comment s: COPD - Chronic Obstruc tive Pulmona ry Disease (SCT [id number] 5) NON-ELEC 10814-8.63 Diagnos JARMOLOWIC 10/26 [facility] OSCILLATOR [id number] is: Z,PIETER CN TRL Y PEP DVC ICD-10- WSTRN CM [place] J44.9 SETS Chronic HCS obstruc tive pulmona ry disease , unspeci fied
with Provide r Comment s: COPD - Chronic Obstruc tive Pulmona ry Disease (SCT [id number] 5) [place] [address]-5.63 Diagnos MAYES,IZ 10/31 [facility] DIG [id number] is: ABELA A CNTRL ASSMT&MGMT ICD-10- WSTRN 5-10 CM [place] Z51.81 SETS [facility] er for therape utic drug level monitor ing<br/ >with Provide r Comment s: Therape utic Drug Level Monitor ing Outpatient [id number] 11/01 [facility] Encounter 1. [facility] [place] [facility] [place] 12609-5.63 11/03 [facility] Encounter [id number] [facility] [place] [facility] OFFICE O/P [id number] Diagnos TRIPLETT,W 11/03 [facility] EST MOD [id number] is: ILLLOTUSSera CNTR L 30-39 MIN ICD-10- WSTRN CM [place] J44.9 SETS Chronic HCS obstruc tive pulmona ry disease , unspeci fied
with Provide r Comment s: COPD - Chronic Obstruc tive Pulmona ry Disease (SCT [id number] 5) DURABLE 21825-7.63 Diagnos TRIPLETT,W 11/03 [place] [facility] [id number] is: DAVIDMAYELA CNTR L EQUIPMENT ICD-10- WSTRN [place] CM [place] J44.9 SETS Chronic HCS obstruc tive pulmona ry disease , unspeci fied
with Provide r Comment s: Chronic Obstruc tive Pulmona ry Disease , unspeci fied HC PRO 28561-5.63 Diagnos VICK, 11/03 V A PHONE CALL [id number] is: BRODY CNT RL 5-10 MIN ICD-10- WSTRN CM [place] Z71.9 SETS [employer] H[facility] ing, unspeci fied
with Provide r Comment s: [employer] ing, unspeci fied Outpatient 48756-4.63 11/07 [facility] En[facility] 1. [facility] [place] [facility] [place] 83204-2.63 11/07 [facility] Encounter 1. [facility] [place] [facility] [facility] HEARING 25312-3.63 Diagnos GOLDIE GOTTI 11/08 [facility] AID [id number] is: UREN L CNTRL REPAIR/MOD ICD-10- WSTRN IFYING CM [place] Z46.1 SETS [facility] er for fitting and adjustm ent of hearing aid<br/ >with Provide r Comment s: Encount er for Fitting and Adjustm ent of Hearing Aid Outpatient 82360-3.63 11/14 [facility] Encounter [id number] /2021 [facility] [place] [facility] [facility] [place] 68951-4.63 12/20 [facility] Encounter [id number] /2022 [facility] [place] [facility] OFFICE O/P 23540-2.63 Diagnos TANA,D 12/21 [place] NEW SF [id number] is: AVID /2021 CNTRL 15-29 MIN ICD-10- WSTRN CM [place] B35.1 SETS [facility] unguium
wi th Provide r Comment s: Onychom ycosis (SCT [id number] 08) Outpatient 35078-0.63 01/15 [facility] Encounter [id number] /2022 [facility] [place] [facility] [facility] [place] 34662-3.63 01/15 [facility] Encounter [id number] /2022 [facility] [place] [facility] [facility] [place] 35285-6.63 03/25 [facility] Encounter [id number] [facility] [place] [facility] [facility] [place] 57941-5.63 04/11 [facility] Encounter [id number] [facility] [place] [facility] [facility] [place] 23195-7.63 04/11 [facility] Encounter [id number] /2022 [facility] [place] [facility] [facility] [place] 18010-2.63 04/23 [facility] Encounter [id number] [facility] [place] [facility] [facility] [place] 77757-8.63 05/18 [facility] Encounter [id number] [facility] [place] [facility] [facility] [place] 77272-0.63 05/23 [facility] Encounter [id number] /2022 [facility] [facility] OFFICE O/P 82916-1.63 Diagnos TRIPLETT,W 05/23 [facility] EST MOD [id number] is: ADALBERTO J CNTR L 30-39 MIN ICD-10- WSTRN CM [place] Z74.09 SETS Other HCS reduced mobilit y
w ith Provide r Comment s: Reduced mobilit y (SCT [id number] ) Outpatient 03557-2.63 05/24 [facility] Encounter [id number] /2022 [facility] [place] [facility] [place] 71356-0.63 05/25 [facility] Encounter [id number] [facility] [place] [facility] [place] 13939-4.63 05/31 [facility] Encounter [id number] [facility] [place] [facility] [facility] 11338-1.63 BOLORENE 05/31 [facility] Encounter [id number] AEL C [facility]L [facility] [facility] Outpatient 72630-5.63 06/18 [facility] Encounter [id number] /2022 [facility] [facility] Outpatient 31632-5.63 07/25 [facility] Encounter [id number] /2022 [facility] [facility] Social History Combined list of available smoking, tobacco, and other social [facility]. 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 Additional future care activities may be listed in the Assessment and Plan section. Date/Time Care Activity Care Activity Detail Facility 11/22/2022 AMBULATORY - MEDICINE AMBULATORY - MEDICINE [place] C NTRL [facility] [facility]
--- OUTSIDE RECORDS SUMMARY | 2022-10-01 09:14 | XMS_ITS | Encounter Summary ---
:1950 Author Organization [facility] rs Address [address] [place] [id number] Support Name Relationship Address Phone JOSE OCAMPO Unavailable [address] [place] [address] JOSE OCAMPO Unavailable [address] [place] [address] Insurance Providers: All historical and current Section Date Range: From patient's date of to the date document was created.This section includes the names of all active insurance providers for the patient. Insurance Type of Plan Start of End of Group Member Insurance Policy P atient's Provider Coverage Name Policy Policy Number ID Provider's Winters's Relationship Coverage Coverage Telephone Name to Policy Number Winters [facility] MEDICARE MEDEX Jan 16, [id number] [phone] PAT[address] SUPPLEMEN HEARI 2014 10 [id number] ,[facility] MEDICARE MEDEX Jan 16, [id number] [phone] PATIENT MASS SUPPLEMEN HEARI 2013 10 [id number] ,RJ JOHNSON AND MEDICARE MEDICARE PART Jan 16, PART A [id number] PATIENT (WNR) (M) A 2013 00 ,RJ MEDICARE MEDICARE PART Jan 16, PART B [id number] PATIENT (WNR) (M) B 2013 [id number] ,RJ MEDICARE MEDICARE PART Jan 16, PART A [id number] PATIENT (WNR) (M) A 2013 4 ,RJ MEDICARE MEDICARE PART Jan 16, PART B [id number] PATIENT (WNR) (M) B 2013 [id number] ,RJ MEDICARE MEDICARE PART Jan 16, PART A [id number] PATIENT (WNR) (M) A 2013 [id number] ,RJ MEDICARE MEDICARE PART Jan 16, PART B [id number] PATIENT (WNR) (M) B [id number] ,RJ Selected Encounter This section includes the information on record at [place] for the Encounter. Date/Time Encounter Type Encounter Reason Provider Source Description Oct 31, 2021 [facility] ICD-10-CM Z51.81 Lauryn MAYES 09:13 AM ASSMT&MGMT 5-10 Encounter for A A therapeutic drug level monitoring with Provider Comments: Therapeutic Drug Level Monitoring IHE Encounter Template Text not used by [place] Assessments - Encounter Diagnoses This section includes the primary and secondary diagnoses documented for the Encounter. Date/Time Primary/Secondary Diagnosis Name Provider Source Diagnosis Oct 31, 2021 PRIMARY Encounter for JOSE MAYES [facility] RN 01:24 PM therapeutic drug A [facility] [place] [facility] level monitoring Plan of Treatment: Future Appointments (+ 6 months) and Future Tests (+/- 45 days) The Plan of Treatment section includes future care activities for the patient from all [place] treatmentfacilities. This section includes future appointments and future orders which are active, pending orscheduled.Future Appointments This section includes appointments that were scheduled to occur 6 months from the date of the Encounter, up to a maximum of 20 appointments. The data comes from all [place] treatment facilities. Appointment Date/Time Appointment Type Appointment Facili ty Name Nov 03, 2021 11:00 AM AMBULATORY - MEDICINE [facility] [place] [facility] Nov 08, 2021 01:30 PM AMBULATORY - REHAB MEDICINE [facility] [place] [facility] Dec 21, 2021 10:00 AM AMBULATORY MEDICINE [facility] [place] [facility] Apr 23, 2022 09:00 AM [facility] [place] [facility] Lab Results: +/- 30 days of the encounter This section includes the Chemistry and Hematology Lab Results on record with [facility] for the patient. Radiology Reports and Pathology Reports are provided separately, in subsequent sections.Lab Results This section contains the Chemistry/Hematology Results that were resulted 30 days before or 30 daysafter the date of the Encounter. Date/Time Source Result Type Result - Unit Interpretation Reference Range Comment Nov 03, 2021 [facility] THYROID T4 FREE(FT4) Specimen T ype: SERUM 11:56 AM [place] [facility] No comment enter ed. Ordering Provid er: RAHEEL TRIPLETT Report Released Date/Time: Nov 03, 2021 11:25 AM Reporting Lab: [facility] [place] [facility] [address] [facility] [address] Performing Lab: [facility] [place] [facility] [address] [facility] [address] THYROID T4 FREE(FT4) 0.85 0.6-1.6 Nov 03, 2021 [facility] PT & INR (PROTIME) Specimen Typ e: PLASMA 11:56 AM [place] [facility] No comment enter ed. Ordering Provid er: RAHEEL TRIPLETT Report Released Date/Time: Nov 03, 2021 11:25 AM Reporting Lab: [facility] [place] [facility] [address] [facility] [address] Performing Lab: [facility] [place] [facility] [address] [facility] [address] INR 1.4 PROTIME 15.2 H 10.0-13.1 Nov 03, 2021 11:56 AM [facility] [place] TSH Specimen Type: [facility] No comment enter ed. Ordering Provid er: RAHEEL TRIPLETT Report Released Date/Time: Nov 03, 2021 11:25 AM Reporting Lab: [facility] [place] [facility] [address] [facility] [address] Performing Lab[facility] [place] [facility] [address] [facility] [address] TSH 2.98 0.35-5.00 Nov 03, 2021 [facility] HEMOGLOBIN A1C PANEL Specimen T ype: BLOOD 11:56 AM [place] [facility] Comment: Testin g performed by NGSP certified [employer] with CV <2%. The Bruno HgA1C assay should not be used to diagnose or monitor diabetes in patients with altered red cell lifespan such a s homozygous hem oglobin variants, Hb SC, HbF>5% and hemolytic anemia. Heterozygous variants do not affect this assay, HbAS, HbAC, HbAD, HbAE, AbA2 Ordering Provid er: RAHEEL TRIPLETT Report Released Date/Time: Nov 03, 2021 11:25 AM Reporting Lab: [facility] [place] [facility] [address] [facility] [address] Performing Lab: [facility] [place] [facility] [address] [facility] [address] HEMOGLOBIN A1C 5.8 H 4.0-5.6 Nov 03, 2021 [facility] LIPID PANEL, NON Specimen Type: SERUM 11:56 AM [place] [facility] FASTING No comment enter ed. Ordering Provid er: RAHEEL TRIPLETT Report Released Date/Time: Nov 03, 2021 11:25 AM Reporting Lab: [facility] [place] [facility] [address] [facility] [address] Performing Lab: [facility] [place] [facility] [address] [facility] [address] CHOLESTEROL 261 H 0-199 TRIGLYCERIDE 88 0-150 LDL calculated 202 H 0-129 CHOL/HDL 6.4 HDL CHOLESTEROL 41 40-60 Nov 03, 2021 [facility] BASIC METABOLIC PANEL Specimen Type: SERUM 11:56 AM [place] [facility] (non-fasting) No comment enter ed. Ordering Provid er: RAHEEL TRIPLETT Report Released Date/Time: Nov 03, 2021 11:25 AM Reporting Lab: [facility] [place] [facility] [address] [facility] [address] Performing Lab: [facility] [place] [facility] [address] [facility] [address] UREA NITROGEN 13 7-25 GLUCOSE 103 H 65-100 SODIUM 135 135-145 POTASSIUM 4.4 3.5-5.0 CHLORIDE 101 100-110 CO2 23 20-30 CREATININE, Serum 0.98 0.50-1.40 eGFR (IDMS) 76 >60 Nov 03, 2021 11:56 [facility] LIVER FUNCTION Specimen Typ e: SERUM AM [place] [facility] No comment enter ed. Ordering Provid er: RAHEEL TRIPLETT Report Released Date/Time: Nov 03, 2021 11:25 AM Reporting Lab: [facility] [place] [facility] [address] [facility] [address] Performing Lab: [facility] [place] [facility] [address] [facility] [address] PROTEIN,TOTAL 6.9 6.0-8.3 ALBUMIN 3.2 L 3.5-5.0 ALKALINE PHOSPHATASE 45 40-150 AST 14 5-34 ALT 12 0-55 BILIRUBIN, TOTAL 0.5 0.2-1.2 Nov 03, 2021 11:56 AM [facility] [place] CBC Specimen Type: BLOOD [facility] No comment enter ed. Ordering Provid er: RAHEEL TRIPLETT Report Released Date/Time: Nov 03, 2021 11:25 AM Reporting Lab: [facility] [place] [facility] [address] [facility] [address] Performing Lab: [facility] [place] [facility] [address] [facility] [address] WBC 12.33 H 4.50-11.00 RBC 4.37 4.23-5.66 HGB 13.3 12.8-17 HCT 40.8 39.2-50.4 MCV 93.4 82-99 MCHC 32.6 30.8-35.1 PLT 337 140-360 RDW-CV 13.6 12.0-16.0 MCH 30.4 26.2-32.6 Social History: Smoking Status (Most current) and Tobacco Use (All prior to encounter date) This section includes the most current, and the historical, smoking and tobacco-related health factors from the [place] facility where the Encounter took place.Current Smoking Status This section includes the most current smoking, or tobacco-related health factor, from the [place] facility where the Encounter took place. Date/Time Current Smoking Status Comment Facility March 24, 2021 10:00 AM [facility]-TOBACCO DOESNT USE WI V [facility] [place] 30 MIN [facility] Tobacco Use History This section includes a history of the smoking, or tobacco- related health factors, that were collected on or before the date of the Encounter. The data comes from the [place] facility where the Encounter took place. 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 OPERATOR NO [facility] [place] [facility] March 24, 2021 10:00 AM VA-TOBACCO USE MED NO [facility] [place] [facility] March 24, 2021 10:00 AM VA-TOBACCO USER SOME DAYS [facility] [place] [facility] Dec 20, 2019 11:46 AM VA-TOBACCO USE 5 TO 15 YEARS [facility] [place] [facility] Dec 20, 2019 11:46 AM VA-TOBACCO USE ADVICE [facility] [place] [facility] Dec 20, 2019 11:46 AM VA-TOBACCO USE 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 YES [facility] [place] [facility] Dec 20, 2019 11:46 AM VA-TOBACCO USE MED NO [facility] [place] [facility] Dec 20, 2019 11:46 AM VA-TOBACCO USE WI 30 MIN OF [facility] [place] [facility] Dec 20, 2019 11:46 AM VA-TOBACCO USER SOME DAYS [facility] [place] [facility] Dec 03, 2018 12:20 PM VA-TOBACCO USE 30 YEARS OR [facility] [place] [facility] Dec 03, 2018 12:20 PM VA-TOBACCO USE ADVICE [facility] [place] [facility] Dec 03, 2018 12:20 PM VA-TOBACCO USE CRYSTALIZER OPERATOR NO [facility] [place] [facility] Dec 03, 2018 12:20 PM VA-TOBACCO USE MED NO [facility] [place] [facility] Dec 03, 2018 12:20 PM VA-TOBACCO USE WI 30 MIN OF [facility] [place] [facility] Dec 03, 2018 12:20 PM VA-TOBACCO USER EVERY DAY [facility] [place] [facility] Encounter Notes: All associated encounter notes This section contains the clinical notes associated to the Encounter. Date/Time Encounter Note(s) Provider Source Oct 31, 2021 09:13 PHARMACY MEDICATION MGT NOTE: SO [place] [facility] TITLE: PH[facility] TITLE: PHARMACY MEDICATION MGT NOTE DATE OF NOTE: OCT 31, 2021@09:13 ENTRY DATE: OCT 31, 2021@09:13:15 AUTHOR: MARY GA EXP COSIGNER: URGENCY: STATUS: COMPLETED PHARMACY ANTICOAGULATION NOTE Has ADDENDA * ANTICOAGULATION DOAC MONITORING NOTE SUBJECTIVE: Patient identified through the DOAC population M anagement Tool based on the following criteria: [ ] Dosing Issue [ ] Critical Drug Interaction [ ] Cancer Treatment [ ] Active NSAID [ X ] Labs Overdue [ ] Prosthetic Valve Replacement [ ] Notable Lab Value [ ] Overdue for Refill [ ] Other: Comments: CBC and Serum crea tinine recommended every 12mths for this patient on DOAC therapy. OBJECTIVE: Indication for anticoagulation: [ ] Atrial fibrilation [ ] Atrial flutter [ X ] VTE (DVT or PE) [ ] Post-op DVT prophylaxis [ ] Other: Most recent lab values include the following: HGB: HGB Collection DT Specimen Test Name Result Units Re f Range 10/31/2020 07:56 BLOOD !! HGB 15.9 g/dL 12.8 - 1 7 !! Indicates COMMENTS AVAILABLE...Refer to Inter im Lab Report. PLT: WBC Collection DT Specimen Test Name Result Units Re f Range 10/31/2020 07:56 BLOOD !! WBC 9.14 K/cmm 4.50 - 11.00 !! Indicates COMMENTS AVAILABLE...Refer to Inter im Lab Report. Liver Function Tests No data available for: AST ALT ALKALINE PHOSPHATASE ALBUMIN BILIRUBIN, TOTAL LDH PROTEIN,TOTAL HEIGHT: 75 in [190.5 cm] (12/24/2018 10:55) WEIGHT: 203 lb [92.3 kg] (03/13/2019 14:26) BMI: BMI: 25.4 CREATININE-EGFR 10/31/20 07:56 1.42 H CRCL IBW: CrCl(est): 57.9 mL/min (Creat:1.42 ) CRCL ACT: No Creat CRCL ADJ: 57.9 mL/min (10/31/20) ASSESSMENT: overdue labs Action required? [ ] Yes [ X ] No Comments: Patient has upcoming PACT apt and PCP has ordered labs. Will dismiss flag for 1 month and follow up if needed. PLAN: [ X ] No action required, dismiss flag [ ] Will intervene: [ ] Patient education via phone/letter [ ] Schedule phone/[id number] follow up [ ] Lab ordered [ ] Discontinue interacting medication [ ] Discontinue DOAC [ ] Change to alternative DOAC [ ] Change DOAC dose [ ] Notify PCP [ ] Consult cardiology/hematology [ ] Other: Time spent: 5 min /prince/ MARY GA CPHT Clinical Salesperson [employer] Signed: 10/31/2021 09:14 Receipt Acknowledged By: 10/31/2021 13:24 /supa MAYES CLINICAL ADVERTISING COORDINATOR 10/31/2021 ADDENDUM STATUS: COMPLETED Case reviewed with [facility] Football Scout who en tered this note. Agree with assessment and plan. /supa MAYES CLINICAL ADVERTISING COORDINATOR Signed: 10/31/2021 13:24
--- OUTSIDE RECORDS SUMMARY | 2022-10-01 09:14 | XMS_ITS ---
:1950 Author Organization [facility] rs Address [address] [place] [id number] Support Name Relationship Address Phone JOSE OCAMPO Unavailable [address] [place] [address] JOSE OCAMPO Unavailable [address] [place] [address] Insurance Providers: All historical and current Section Date Range: From patient's date of to the date document was created.This section includes the names of all active insurance providers for the patient. Insurance Type of Plan Start of End of Group Member Insurance Policy P atient's Provider Coverage Name Policy Policy Number ID Provider's Winters's Relationship Coverage Coverage Telephone Name to Policy Number Winters BS [place] MEDEX Jan 16, [id number] [phone] SUPPLEMEN HEARI 2014 10 [id number] ,RJ JOHNSON AND ELLEN [facility] MEDICARE MEDEX Jan 16, [id number] [phone] PATIENT MASS SUPPLEMEN HEARI 2013 10 [id number] ,RJ JOHNSON AND MEDICARE MEDICARE PART Jan 16, PART A [id number] PATIENT (WNR) (M) A 2013 00 ,RJ MEDICARE MEDICARE PART Jan 16, PART B [id number] PATIENT (WNR) (M) B 2013 [id number] ,RJ MEDICARE MEDICARE PART Jan 16, PART A [id number] PATIENT (WNR) (M) A 2013 4 ,RJ MEDICARE MEDICARE PART Jan 16, PART B [id number] ANNETTE JENKINS PATIENT (WNR) (M) B 2013 [id number] ,RJ MEDICARE MEDICARE PART Jan 16, PART A [id number] ANNETTE JENKINS PATIENT (WNR) (M) A [id number] 00 ,RJ MEDICARE MEDICARE PART Jan 16, PART B [id number] ANNETTE JENKINS PATIENT (WNR) (M) B [id number] ,RJ Selected Encounter This section includes the information on record at MD for the Encounter. Date/Time Encounter Type Encounter Description Reason Provider Source Nov 01, 2021 01:00 Outpatient Encounter PRIMARY CARE/MEDICINE PM IHE Encounter Template Text not used by MD Plan of Treatment: Future Appointments (+ 6 months) and Future Tests (+/- 45 days) The Plan of Treatment section includes future care activities for the patient from all MD treatmentfacilities. This section includes future appointments and future orders which are active, pending orscheduled.Future Appointments This section includes appointments that were scheduled to occur 6 months from the date of the Encounter, up to a maximum of 20 appointments. The data comes from all MD treatment facilities. Appointment Date/Time Appointment Type Appointment Facili ty Name Nov 03, 2021 11:00 AM [facility] Nov 08, 2021 01:30 PM [facility] Dec 21, 2021 10:[address] [facility] Apr 23, 2022 09:00 AM AMBULATORY MEDICINE [facility] Lab Results: +/- 30 days of the encounter This section includes the Chemistry and Hematology Lab Results on record with MD for the patient. Radiology Reports and Pathology Reports are provided separately, in subsequent sections.Lab Results This section contains the Chemistry/Hematology Results that were resulted 30 days before or 30 daysafter the date of the Encounter. Date/Time Source Result Type Result - Unit Interpretation Reference Range Comment Nov 03, 2021 [facility] TH[facility] T4 FREE(FT4) Specimen T ype: SERUM 11:56 AM [facility] No comment enter ed. Ordering Provid er: RAHEEL MILAN Report Released Date/Time: Nov 03, 2021 11:25 AM Reporting Lab: [facility] [place] [facility] [address] [facility] [address] Performing Lab: [facility] [place] [facility] [address] [facility] [address] THYROID T4 FREE(FT4) 0.85 0.6-1.6 Nov 03, 2021 [facility] HEMOGLOBIN A1C PANEL Specimen T ype: BLOOD 11:56 AM [place] [facility] Comment: Testin g performed by NGSP certified Bruno Enzymatic with CV <2%. The Bruno HgA1C assay should not be used to diagnose or monitor diabetes in patients with altered red cell lifespan such a s homozygous hem oglobin variants, Hb SC, HbF>5% and hemolytic anemia. Heterozygous variants do not affect this assay, HbAS, HbAC, HbAD, HbAE, AbA2 Ordering Provid er: RAHEEL MILAN Report Released Date/Time: Nov 03, 2021 11:25 AM Reporting Lab: [facility] [place] [facility] [address] [facility] [address] Performing Lab: [facility] [place] [facility] [address] [facility] [address] HEMOGLOBIN A1C 5.8 H 4.0-5.6 Nov 03, 2021 [facility] PT & INR (PROTIME) Specimen Typ e: PLASMA 11:56 AM [place] [facility] No comment enter ed. Ordering Provid er: RAHEEL MILAN Report Released Date/Time: Nov 03, 2021 11:25 AM Reporting Lab: [facility] [place] [facility] [address] [facility] [address] Performing Lab: [facility] [place] [facility] [address] [facility] [address] INR 1.4 PROTIME 15.2 H 10.0-13.1 Nov 03, 2021 11:56 AM [facility] [place] TSH Specimen Type: SERUM [facility] No comment enter ed. Ordering Provid er: RAHEEL MILAN Report Released Date/Time: Nov 03, 2021 11:25 AM Reporting Lab: [facility] [place] [facility] [address] [facility] [address] Performing Lab: [facility] [place] [facility] [address] [facility] [address] TSH 2.98 0.35-5.00 Nov 03, 2021 [facility] LIPID PANEL, NON Specimen Type: SERUM 11:56 AM [place] [facility]ST[facility] No comment enter ed. Ordering Provid er: RAHEEL MILAN Report Released Date/Time: Nov 03, 2021 11:25 AM Reporting Lab: [facility] [place] [facility] [address] [facility] [address] [facility]forming Lab: [facility] [place] [facility] [address] [facility] [address] CHOLESTEROL 261 H 0-199 TRIGLYCERIDE 88 0-150 LDL calculated 202 H 0-129 CHOL/HDL 6.4 HDL CHOLESTEROL 41 40-60 Nov 03, 2021 [facility] BASIC METABOLIC PANEL Specimen Type: SERUM 11:56 AM [place] [facility] (non-fasting) No comment enter ed. Ordering Provid er: RAHEEL MILAN Report Released Date/Time: Nov 03, 2021 11:25 AM Reporting Lab: [facility] [place] [facility] [address] [facility] [address] Performing Lab[facility] [place] [facility] [address] [facility] [address] UREA NITROGEN 13 7-25 GLUCOSE 103 H 65-100 SODIUM 135 135-145 POTASSIUM 4.4 3.5-5.0 CHLORIDE 101 100-110 CO2 23 20-30 CREATININE, Serum 0.98 0.50-1.40 eGFR (IDMS) 76 >60 Nov 03, 2021 11:56 [facility] LIVER FUNCTION Specimen Typ e: SERUM AM [place] [facility] No comment enter ed. Ordering Provid er: RAHEEL MILAN Report Released Date/Time: Nov 03, 2021 11:25 AM Reporting Lab: [facility] [place] [facility] [address] [facility] [address] [facility]forming Lab[facility] [address] [facility] [address] PROTEIN,TOTAL 6.9 6.0-8.3 ALBUMIN 3.2 L 3.5-5.0 ALKALINE PHOSPHATASE 45 40-150 AST 14 5-34 ALT 12 0-55 BILIRUBIN, TOTAL 0.5 0.2-1.2 Nov 03, 2021 11:56 AM [facility] [place] CBC Specimen Type: BLOOD [facility] No comment enter ed. Ordering Provid er: RAHEEL MILAN Report Released Date/Time: Nov 03, 2021 11:25 AM Reporting Lab: [facility] [place] [facility] [address] [facility] [address] Performing Lab: [facility] [place] [facility] [address] [facility] [address] WBC 12.33 H 4.50-11.00 RBC 4.37 4.23-5.66 HGB 13.3 12.8-17 HCT 40.8 39.2-50.4 MCV 93.4 82-99 MCHC 32.6 30.8-35.1 PLT 337 140-360 RDW-CV 13.6 12.0-16.0 MCH 30.4 26.2-32.6 Social History: Smoking Status (Most current) and Tobacco Use (All prior to encounter date) This section includes the most current, and the historical, smoking and tobacco-related health factors from the MD facility where the Encounter took place.Current Smoking Status This section includes the most current smoking, or tobacco-related health factor, from the MD facility where the Encounter took place. Date/Time Current Smoking Status Comment Facility March 24, 2021 10:00 AM VA-TOBACCO USER SOME DAYS [facility] [place] [facility] Tobacco Use History This section includes a history of the smoking, or tobacco- related health factors, that were collected on or before the date of the Encounter. The data comes from the MD facility where the Encounter took place. 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 NO [facility] [place] [facility] March 24, 2021 10:00 AM VA-TOBACCO USE MED NO [facility] [place] [facility] March 24, 2021 10:00 AM VA-TOBACCO USER SOME DAYS [facility] [place] [facility] Dec 20, 2019 11:46 AM VA-TOBACCO USE 5 TO 15 YEARS [facility] [place] [facility] Dec 20, 2019 11:46 AM VA-TOBACCO USE ADVICE [facility] [place] [facility] Dec 20, 2019 11:46 AM VA-TOBACCO USE CHAINSTITCH HEMMER YES [facility] [place] [facility] Dec 20, 2019 11:46 AM VA-TOBACCO USE MED NO [facility] [place] [facility] Dec 20, 2019 11:46 AM VA-TOBACCO USE WI 30 MIN OF [facility] [place] [facility] Dec 20, 2019 11:46 AM VA-TOBACCO USER SOME DAYS [facility] [place] [facility] Dec 03, 2018 12:20 PM VA-TOBACCO USE 30 YEARS OR [facility] [place] [facility] Dec 03, 2018 12:20 PM VA-TOBACCO USE ADVICE [facility] [place] [facility] Dec 03, 2018 12:20 PM VA-TOBACCO USE CHAINSTITCH HEMMER NO [facility] [place] [facility] Dec 03, 2018 12:20 PM VA-TOBACCO USE MED NO [facility] [place] [facility] Dec 03, 2018 12:20 PM VA-TOBACCO USE WI 30 MIN OF [facility] [place] [facility] Dec 03, 2018 12:20 PM VA-TOBACCO USER EVERY DAY [facility] [place] [facility] Encounter Notes: All associated encounter notes This section contains the clinical notes associated to the Encounter. Date/Time Encounter Note(s) Provider Source Nov 07, 2021 01:21 PRIMARY CARE NURSE PRACTITIONER OUTPATIE NT NOTE: RAHEEL MILAN [facility] PM LOCAL TITLE: NURSE PRACTITIONER OUTPATIENT NOTE [facility] STANDARD TITLE: PRIMARY CARE NURSE PRACTITIONER OUTPATIENT NOTE DATE OF NOTE: NOV 07, 2021@13:21 ENTRY DATE: NOV 07, 2021@13:21:59 AUTHOR: RAHEEL MILAN EXP COSIGNER: URGENCY: STATUS: COMPLETED [facility] [address] [place] [address] [facility] Toll Free Number Primary Care Telephone Assistance can be reached at extension [phone] [facility] scheduling can be reac hed at extension [phone] [facility] scheduling can be mayte ched at ext [phone] NOV 07, 2021 RJ OCAMPO [address] [place], [address] Dear RJ OCAMPO, Thank you for coming in for your tests. Your rec ent test results are as follows: LAB CHEMISTRY & HEMATOLOGY Collection DT Specimen Test Name Result Units Re f Range 11/03/2021 11:56 SERUM Free T4 0.85 ng/dL 0.6 - 1.6 11/03/2021 11:56 SERUM TSH 2.98 uIU/mL 0.35 - 5.00 CREATININE, Serum 0.98 mg/dL 0.50 - 1.40 eGFR (IDMS) >60 Ref: >=60 SODIUM 135 mmol/L 135 - 145 POTASSIUM 4.4 mmol/L 3.5 - 5.0 CHLORIDE 101 mmol/L 100 - 110 CO2 23 mEq/L 20 - 30 UREA NITROGEN 13 mg/dL 7 - 25 GLUCOSE 103 H mg/dL 65 - 100 PROTEIN,TOTAL 6.9 g/dL 6.0 - 8.3 ALBUMIN 3.2 L g/dL 3.5 - 5.0 ALK UMAIR 45 U/L 40 - 150 AST 14 U/L 5 - 34 BILIRUBIN, TOTAL 0.5 mg/dL 0.2 - 1.2 CHOLESTEROL 261 H mg/dL 0 - 199 TRIGLYCERIDE 88 mg/dL 0 - 150 LDL calculated 202 H mg/dL 0 - 129 CHOL/HDL 6.4 ALT 12 U/L 0 - 55 HDL CHOLESTEROL 41 mg/dL 40 - 60 11/03/2021 11:56 BLOOD HEMOGLOBIN A1C 5.8 H % 4. 0 - 5.6 11/03/2021 11:56 BLOOD WBC 12.33 H K/cmm 4.50 - 11.00 RBC 4.37 M/cmm 4.23 - 5.66 HGB 13.3 g/dL 12.8 - 17 HCT 40.8 % 39.2 - 50.4 MCV 93.4 fl 82 - 99 MCH 30.4 pg 26.2 - 32.6 MCHC 32.6 g/dL 30.8 - 35.1 RDW-CV 13.6 % 12.0 - 16.0 PLT 337 K/cmm 140 - 360 11/03/2021 11:56 PLASMA PROTIME 15.2 sec 10.0 - 13.1 INR 1.4 I have reviewed your results. Cholesterol is julien vated otherwise stable findings. WBC elevation secondary to recent ster oids. Thank you for allowing me to be a part of your [facility] care team. Please call if you have any questions or concern s. Sincerely, Dr. Raheel Milan DNP, MAL[place]-ANKUR, AZRA Nurse Practitioner Primary Care PACT Seven /es/ ENOC Overton DNP, AZRA Primary Care Nurse Practitioner Signed: 11/07/2021 13:23 Receipt Acknowledged By: 11/07/2021 13:25 /es/ SHERRIE ORTIZ [employer]
--- OUTSIDE RECORDS SUMMARY | 2022-10-01 09:14 | XMS_ITS ---
:1950 Author Organization [facility] Address [address] [place] [id number] Support Name Relationship Address Phone JOSE OCAMPO Unavailable [address] [place] [address] JOSE OCAMPO Unavailable [address] [place] [address] Insurance Providers: All historical and current Section Date Range: From patient's date of to the date document was created.This section includes the names of all active insurance providers for the patient. Insurance Type of Plan Start of End of Group Member Insurance Policy P atient's Provider Coverage Name Policy Policy Number ID Provider's Winters's Relationship Coverage Coverage Telephone Name to Policy Number Winters [facility] MEDICARE MEDEX Jan 16, [id number] [phone] PAT[address] SUPPLEMEN HEARI 2014 10 [id number] ,RJ [facility] MEDICARE MEDEX Jan 16, [id number] [phone] PATIENT MASS SUPPLEMEN HEARI 2013 10 [id number] ,RJ JOHNSON AND MEDICARE MEDICARE PART Jan 16, PART A [id number] PATIENT (WNR) (M) A 2013 00 ,RJ MEDICARE MEDICARE PART Jan 16, PART B [id number] PATIENT (WNR) (M) B 2013 00 ,RJ MEDICARE MEDICARE PART Jan 16, PART A [id number] PATIENT (WNR) (M) A 2013 4 ,RJ MEDICARE MEDICARE PART Jan 16, PART B [id number] PATIENT (WNR) (M) B 2013 [id number] ,RJ MEDICARE MEDICARE PART Jan 16, PART A [id number] PATIENT (WNR) (M) A 2013 [id number] ,RJ MEDICARE MEDICARE PART Jan 16, PART B [id number] PATIENT (WNR) (M) B [id number] ,RJ Selected Encounter This section includes the information on record at [place] for the Encounter. Date/Time Encounter Type Encounter Reason Provider Source Description Nov 03, 2021 PRO PHONE TELEPHONE CASE ICD-10-CM Z71.9 SE MATT VICK 01:55 PM CALL 5-10 MIN MANAGEMENT Counseling, [place] unspecified with Provider Comments: Counseling, unspecified IHE Encounter Template Text not used by [place] Assessments - Encounter Diagnoses This section includes the primary and secondary diagnoses documented for the Encounter. Date/Time Primary/Secondary Diagnosis Name Provider Source Diagnosis Nov 03, 2021 PRIMARY Counseling, MANDIE VICK [facility] N 01:55 PM unspecified [place] [facility] Plan of Treatment: Future Appointments (+ 6 months) and Future Tests (+/- 45 days) The Plan of Treatment section includes future care activities for the patient from all [place] [facility]. This section includes future appointments and future orders which are active, pending orscheduled.Future Appointments This section includes appointments that were scheduled to occur 6 months from the date of the Encounter, up to a maximum of 20 appointments. The data comes from all [place] treatment facilities. Appointment Date/Time Appointment Type Appointment Facili ty Name Nov 08, 2021 01:30 PM AMBULATORY - [facility]IC[facility] Dec 21, 2021 10:00 AM [facility] Apr 23, 2022 09:00 AM [facility] MEDIC[facility] Lab Results: +/- 30 days of the encounter This section includes the Chemistry and Hematology Lab Results on record with [place] for the patient. Radiology Reports and Pathology Reports are provided separately, in subsequent sections.Lab Results This section contains the Chemistry/Hematology Results that were resulted 30 days before or 30 daysafter the date of the Encounter. Date/Time Source Result Type Result - Unit Interpretation Reference Range Comment Nov 03, 2021 [facility] THYROID T4 FREE(FT4) Specimen T ype: SERUM 11:56 AM [place] [facility] No comment enter ed. Ordering Provid er: RAHEEL TRIPLETT Report Released Date/Time: Nov 03, 2021 11:25 AM Reporting [facility] [place] [facility] [address] [address] Performing Lab: [facility] [place] [facility] [address] [address] THYROID T4 FREE(FT4) 0.85 0.6-1.6 Nov 03, 2021 [place] [facility] PT & INR (PROTIME) Specimen Typ e: PLASMA 11:56 AM [place] [facility] No comment enter ed. Ordering Provid er: RAHEEL TRIPLETT Report Released Date/Time: Nov 03, 2021 11:25 AM Reporting [facility] [place] [facility] [address] [address] Performing [facility]: [facility] [address] [address] INR 1.4 PROTIME 15.2 H 10.0-13.1 Nov 03, 2021 [facility] HEMOGLOBIN A1C PANEL Specimen T ype: BLOOD 11:56 [facility] Comment: Testin g performed by NGSP certified [...] Nov 03, 2021 11:25 AM Reporting [facility] [place] [facility] [address] [address] Performing Lab: [facility] [address] [address] HEMOGLOBIN A1C 5.8 H 4.0-5.6 Nov 03, 2021 11:56 AM [place] [facility] [place] [facility] Specimen Type: SERUM [facility] No comment enter ed. Ordering Provid er: RAHEEL TRIPLETT Report Released Date/Time: Nov 03, 2021 11:25 AM Reporting [facility] [place] [facility] [address] [address] Performing [facility]: [facility] [place] [facility] [address] [address] TSH 2.98 0.35-5.00 Nov 03, 2021 [facility] LIPID PANEL, NON Specimen Type: SERUM 11:56 AM [facility] [facility] No comment enter ed. Ordering Provid er: RAHEEL TRIPLETT Report Released Date/Time: Nov 03, 2021 11:25 AM Reporting [facility] [place] [facility] [address] [address] [facility]forming [facility]: [facility] [place] [facility] [address] [address] CHOLESTEROL 261 H 0-199 TRIGLYCERIDE 88 0-150 LDL calculated 202 H 0-129 CHOL/HDL 6.4 HDL CHOLESTEROL 41 40-60 Nov 03, 2021 [facility] BASIC METABOLIC PANEL Specimen Type: SERUM 11:56 AM [place] [facility] (non-fasting) No comment enter ed. Ordering Provid er: RAHEEL TRIPLETT Report Released Date/Time: Nov 03, 2021 11:25 AM Reporting [facility] [place] [facility] [address] [address] Performing Lab: [place] [facility] [place] [facility] [address] [address] UREA NITROGEN 13 7-25 GLUCOSE 103 H 65-100 SODIUM 135 135-145 POTASSIUM 4.4 3.5-5.0 CHLORIDE 101 100-110 CO2 23 20-30 CREATININE, Serum 0.98 0.50-1.40 eGFR (IDMS) 76 >60 Nov 03, 2021 11:56 [place] [facility] LIVER FUNCTION Specimen Typ e: SERUM AM [place] [facility] No comment enter ed. Ordering Provid er: RAHEEL TRIPLETT Report Released Date/Time: Nov 03, 2021 11:25 AM Reporting Lab: [place] [facility] [place] [facility] [address] [address] Performing Lab: [facility] [place] [facility] [address] [address] PROTEIN,TOTAL 6.9 6.0-8.3 ALBUMIN 3.2 L 3.5-5.0 ALKALINE PHOSPHATASE 45 40-150 AST 14 5-34 ALT 12 0-55 BILIRUBIN, TOTAL 0.5 0.2-1.2 Nov 03, 2021 11:56 AM [place] [facility] [place] CBC Specimen Type: BLOOD HCS No comment enter ed. Ordering Provid er: RAHEEL TRIPLETT Report Released Date/Time: Nov 03, 2021 11:25 AM Reporting Lab: [place] [facility] [place] [facility] [address] [address] Performing Lab: [facility] [place] [facility] [address] [address] WBC 12.33 H 4.50-11.00 RBC 4.37 4.23-5.66 HGB 13.3 12.8-17 HCT 40.8 39.2-50.4 MCV 93.4 82-99 MCHC 32.6 30.8-35.1 PLT 337 140-360 RDW-CV 13.6 12.0-16.0 MCH 30.4 26.2-32.6 Vital Signs: All taken on the encounter date This section contains inpatient and outpatient Vital Signs collected on the date of the Encounter. Date/Time Temperature Pulse Blood Respiratory SP02 Pain Height Weight Arben dy Source Pressure Rate Mass Index Nov 03 101/67 26 /min 95 % 0 71 in 201 lb 28 [place] 2020 10:46 /min mm[Hg] [facility] [place] [facility] [facility] Social History: Smoking Status (Most current) and Tobacco Use (All prior to encounter date) This section includes the most current, and the historical, smoking and tobacco-related health factors from the [place] facility where the Encounter took place.Current Smoking Status This section includes the most current smoking, or tobacco-related health factor, from the [place] facility where the Encounter took place. Date/Time Current Smoking Status Comment Facility March 24, 2021 10:00 AM VA-TOBACCO USER SOME DAYS [facility] [place] [facility] Tobacco Use History This section includes a history of the smoking, or tobacco- related health factors, that were collected on or before the date of the Encounter. The data comes from the [place] facility where the Encounter took place. 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 [facility] [place] [facility] March 24, 2021 10:00 AM VA-TOBACCO USE MED NO [facility] [place] [facility] March 24, 2021 10:00 AM VA-TOBACCO USER SOME DAYS [facility] [place] [facility] Dec 20, 2019 11:46 AM VA-TOBACCO USE 5 TO 15 YEARS [facility] [place] [facility] Dec 20, 2019 11:46 AM VA-TOBACCO USE ADVICE [facility] [place] [facility] Dec 20, 2019 11:46 AM 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 [facility] [place] [facility] Dec 20, 2019 11:46 AM VA-TOBACCO USE MED NO [facility] [place] [facility] Dec 20, 2019 11:46 AM VA-TOBACCO USE WI 30 MIN OF [facility] [place] [facility] Dec 20, 2019 11:46 AM VA-TOBACCO USER SOME DAYS [facility] [place] [facility] Dec 03, 2018 12:20 PM VA-TOBACCO USE 30 YEARS OR [facility] [place] [facility] Dec 03, 2018 12:20 PM VA-TOBACCO USE ADVICE [facility] [place] [facility] Dec 03, 2018 12:20 PM 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 Date/Time Encounter Note(s) Provider Source Nov 03, 2021 01:55 PM SOCIAL WORK NOTE: BRODY VICK [facility] LOCAL TITLE: SOCIAL WORK NOTE [facility] [place] [facility] STANDARD TITLE: SOCIAL WORK NOTE DATE OF NOTE: NOV 03, 2021@13:55 ENTRY DATE: NOV 03, 2021@13:56:18 AUTHOR: BRODY VICK EXP COSIGNER: URGENCY: STATUS: COMPLETED Polysomnographic Technician reached out in response to pcp consult re questing assistance with 'reconsideration for caregiv er support'. [place] reported I filed an appeal and Lee Quinones from the [facility] in [place] is working on my case. I need the doctor to write a letter to show proof of my condition. Can you help me? . Polysomnographic Technician will add PACT to note. /prince/ BOB HERNANDEZ LICENSED INDEPENDENT CLINICAL DRUM TESTER Signed: 11/03/2021 14:06 Receipt Acknowledged By: * AWAITING SIGNATURE * RAHEEL TRIPLETT * AWAITING SIGNATURE * ALYSSIA DOWNEY * AWAITING SIGNATURE * FLORIN SAMUEL
--- OUTSIDE RECORDS SUMMARY | 2022-10-01 09:14 | XMS_ITS | Encounter Summary ---
:1950 Author Organization [facility] rs Address [address] [place] [address] Support Name Relationship Address Phone JOSE OCAMPO Unavailable [address] [place] [address] JOSE OCAMPO Unavailable [address] [place] [address] Insurance Providers: All historical and current Section [...] Telephone Name to Policy Number [place] Jan 16, [id number] PAT[address] SUPPLEMEN HEARI 2014 10 [id number] ,RJ JOHNSON [facility] MEDIC[facility] MEDEX Jan 16, [id number] [phone] PATIENT MASS SUPPLEMEN HEARI 2013 10 [id number] ,RJ JOHNSON AND MEDICARE MEDICARE PART Jan 16, PART A [id number] PATIENT (WNR) (M) A 2013 00 ,RJ MEDICARE MEDICARE PART Jan 16, PART B [id number] PATIENT (WNR) (M) B 2013 [id number] 00 ,RJ MEDICARE MEDICARE PART Jan 16, PART A [id number] PATIENT (WNR) (M) A 2013 4 ,RJ MEDICARE MEDICARE PART Jan 16, PART B [id number] ANNETTE JENKINS PATIENT (WNR) (M) B 2013 [id number] ,RJ MEDICARE MEDICARE PART Jan 16, PART A [id number] ANNETTE JENKINS PATIENT (WNR) (M) A 2013 [id number] ,RJ MEDICARE MEDICARE PART Jan 16, PART B [id number] ANNETTE JENKINS PATIENT (WNR) (M) B [id number] 00 ,RJ Selected Encounter This section includes the information on record at [place] for the Encounter. Date/Time Encounter Type Encounter Description Reason Provider Source Nov 07, 2021 03:18 Outpatient Encounter PRIMARY CARE/MEDICINE PM [facility] Encounter Template Text not used by [place] Plan of Treatment: Future Appointments (+ 6 months) and Future Tests (+/- 45 days) The Plan of Treatment section includes future care activities for the patient from all [place] treatmentfacilities. This section includes future appointments and future orders which are active, pending orscheduled.Future Appointments This section includes appointments that were scheduled to occur 6 months from the date of the Encounter, up to a maximum of 20 appointments. The data comes from all [place] treatment facilities. Appointment Date/Time Appointment Type Appointment Facili ty Name Nov 08, 2021 01:30 PM AMBULATORY - REHAB MEDICINE [facility] Dec 21, 2021 10:00 AM [facility] Apr 23, 2022 09:00 AM AMBULATORY - MEDICINE [facility] Lab Results: +/- 30 days of the encounter This section includes the Chemistry and Hematology Lab Results on record with [place] for the patient. Radiology Reports and Pathology Reports are provided separately, in subsequent sections.Lab Results This section contains the Chemistry/Hematology Results that were resulted 30 days before or 30 daysafter the date of the Encounter. Date/Time Source Result Type Result - Unit Interpretation Reference Range Comment Nov 03, 2021 [facility] TH[facility] T4 FREE(FT4) Specimen T ype: SERUM 11:56 AM [facility] No comment enter ed. Ordering Provid er: RAHEEL TRIPLETT Report Released Date/Time: Nov 03, 2021 11:25 AM Reporting Lab: [address] [address] Performing Lab: [facility] [address] [facility] [address] THYROID T4 FREE(FT4) 0.85 0.6-1.6 Nov 03, 2021 [facility] PT & INR (PROTIME) Specimen Typ e: PLASMA 11:56 AM [facility] No comment enter ed. Ordering Provid er: RAHEEL TRIPLETT Report Released Date/Time: Nov 03, 2021 11:25 AM Reporting Lab: [facility] [address] [facility] [address] Performing Lab: [facility] [address] [facility] [address] INR 1.4 PROTIME 15.2 H 10.0-13.1 Nov 03, 2021 [facility] HEMOGLOBIN A1C PANEL Specimen T ype: BLOOD 11:56 AM [place] [facility] Comment: Testin g performed by [...] Lab: [facility] [address] [facility] [address] Performing Lab: [facility] [address] [facility] [address] HEMOGLOBIN A1C 5.8 H 4.0-5.6 Nov 03, 2021 11:56 AM [facility] [place] TSH Specimen Type: [facility] No comment enter ed. Ordering Provid er: RAHEEL TRIPLETT Report Released Date/Time: Nov 03, 2021 11:25 AM Reporting Lab: [facility] [address] [facility] [address] Performing Lab: [facility] [address] [facility] [address] TSH 2.98 0.35-5.00 Nov 03, 2021 [facility] LIPID PANEL, NON Specimen Type: SERUM 11:56 AM [facility] FASTING No comment enter ed. Ordering Provid er: RAHEEL TRIPLETT Report Released Date/Time: Nov 03, 2021 11:25 AM [facility] [place] [facility] [address] [facility] [address] Performing Lab: [facility] [place] [facility] [address] [facility] [address] CHOLESTEROL 261 H 0-199 TRIGLYCERIDE 88 0-150 LDL calculated 202 H 0-129 CHOL/HDL 6.4 HDL CHOLESTEROL 41 40-60 Nov 03, 2021 [facility] BASIC METABOLIC PANEL Specimen Type: SERUM 11:56 AM [facility] [facility] (non-fasting) No comment enter ed. Ordering Provid er: RAHEEL TRIPLETT Report Released Date/Time: Nov 03, 2021 11:25 AM Reporting [facility] [place] [facility] [address] [facility] [address] Performing Lab: [facility] [place] [facility] [address] [facility] [address] UREA NITROGEN 13 7-25 GLUCOSE 103 H 65-100 SODIUM 135 135-145 POTASSIUM 4.4 3.5-5.0 CHLORIDE 101 100-110 CO2 23 20-30 CREATININE, Serum 0.98 0.50-1.40 eGFR (IDMS) 76 >60 Nov 03, 2021 11:56 AM [facility] [place] CBC Specimen Type: BLOOD HCS No comment enter ed. Ordering Provid er: RAHEEL TRIPLETT Report Released Date/Time: Nov 03, 2021 11:25 AM Reporting Lab: [facility] [place] [facility] [address] [facility] [address] Performing Lab: [facility] [place] [facility] [address] [facility] [address] WBC 12.33 H 4.50-11.00 RBC 4.37 4.23-5.66 HGB 13.3 12.8-17 HCT 40.8 39.2-50.4 MCV 93.4 82-99 MCHC 32.6 30.8-35.1 PLT 337 140-360 RDW-CV 13.6 12.0-16.0 MCH 30.4 26.2-32.6 Nov 03, 2021 11:56 [facility] LIVER FUNCTION Specimen Typ e: SERUM AM [facility] No comment enter ed. Ordering Provid er: RAHEEL TRIPLETT Report Released Date/Time: Nov 03, 2021 11:25 AM Reporting Lab: [facility] [address] [facility] [address] Performing Lab: [facility] [address] [facility] [address] PROTEIN,TOTAL 6.9 6.0-8.3 ALBUMIN 3.2 L 3.5-5.0 ALKALINE PHOSPHATASE 45 40-150 AST 14 5-34 ALT 12 0-55 BILIRUBIN, TOTAL 0.5 0.2-1.2 Social History: Smoking Status (Most current) and Tobacco Use (All prior to encounter date) This section includes the most current, and the historical, smoking and tobacco-related health factors from the [place] facility where the Encounter took place.Current Smoking Status This section includes the most current smoking, or tobacco-related health factor, from the [place] facility where the Encounter took place. Date/Time Current Smoking Status Comment Facility March 24, 2021 10:00 AM VA-TOBACCO USER SOME DAYS [place] [facility] [place] [facility] Tobacco Use History This section includes a history of the smoking, or tobacco- related health factors, that were collected on or before the date of the Encounter. The data comes from the [place] facility where the Encounter took place. Date/Time Smoking Status/Tobacco Use Comment [facility] it March 24, 2021 10:00 AM VA-TOBACCO USE 30 YEARS OR [facility] [place] [facility] March 24, 2021 10:00 AM VA-TOBACCO USE ADVICE [facility] [place] 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 March 24, 2021 10:00 AM VA-TOBACCO USE MED NO [facility] [place] [facility] March 24, 2021 10:00 AM VA-TOBACCO USER SOME DAYS [facility] [place] [facility] Dec 20, 2019 11:46 AM VA-TOBACCO USE 5 TO 15 YEARS [facility] [place] [facility] Dec 20, 2019 11:46 AM VA-TOBACCO USE ADVICE [facility] [place] 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 Dec 20, 2019 11:46 AM VA-TOBACCO USE MED NO [facility] [place] [facility] Dec 20, 2019 11:46 AM VA-TOBACCO USE WI 30 MIN OF [facility] [place] [facility] Dec 20, 2019 11:46 AM VA-TOBACCO USER SOME DAYS [facility] [place] [facility] Dec 03, 2018 12:20 PM VA-TOBACCO USE 30 YEARS OR [facility] [place] [facility] Dec 03, 2018 12:20 PM VA-TOBACCO USE ADVICE [facility] [place] 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 Dec 03, 2018 12:20 PM VA-TOBACCO USE MED NO [facility] [place] [facility] Dec 03, 2018 12:20 PM VA-TOBACCO USE WI 30 MIN OF [facility] [place] [facility] Dec 03, 2018 12:20 PM VA-TOBACCO USER EVERY DAY [facility] [place] [facility] Encounter Notes: All associated encounter notes This section contains the clinical notes associated to the Encounter. Date/Time Encounter Note(s) Provider Source Nov 07, 2021 03:19 PM LETTERS: SHERRIE ROTIZ [facility] LOCAL TITLE: PATIENT LETTER (T) [place] [facility] STANDARD TITLE: LETTERS DATE OF NOTE: NOV 07, 2021@15:19 ENTRY DATE: NOV 07, 2021@15:19:16 AUTHOR: SHERRIE ORTIZ EXP COSIGNER: URGENCY: STATUS: COMPLETED [facility] Toll Free Number Primary Care Telephone Assistance can be reached at extension [phone] [facility] scheduling can be reac hed at extension [phone] [facility] scheduling can be mayte ched at ext [phone] RJ OCAMPO [address] [place], [place], [address] NOV 07, 2021 RJ OCAMPO [address] [place], [place] [address] Dear RJ OCAMPO Thank you for choosing the [facility] as your primary choice for health care. We want to assure you we are doing everything possible to schedule [facility] medical care appointments. Our records indicate you are due for an appointm ent in PRIMARY CARE. We value you as a patient, and are concerned abo ut your overall health. Future Clinic Visits 09/18/2022 10:00 CWM/NO/OPTOMETRY/MERHAR Patients are encouraged to see their Primary Car e Doctor to maintain your health care needs. If you would like to be seen, please contact [facility] at ([phone] or [phone]) to sc hedule an appointment. We hope to hear from you within 14 days of recei pt of this letter to schedule your follow up appointment. If you have any further questions or would like more information regarding [place] health care benefits, please call toll free at [phone]), visit the VA website at [email or web address].gov/healthbenefit s, or contact your local [place] [facility] Center. Thank you for your service to our nation, and we look forward to hearing from you soon. Sincerely, [facility] Sincerely, Your Primary Care Team [facility] [address] [facility] [address] [place] [address] [place] [address] [phone] [facility] [address] [place] [address] [place] [address] [phone] [facility] [address] [facility] [address] [place] [address] [place] [address] [phone] Nov 07, 2021 03:18 PM ADMINISTRATIVE NOTE: SHERRIE ORTIZ CN [facility] LOCAL TITLE: ADMINISTRATIVE RECALL NOTE [facility] STANDARD TITLE: ADMINISTRATIVE NOTE DATE OF NOTE: NOV 07, 2021@15:18 ENTRY DATE: NOV 07, 2021@15:18:37 AUTHOR: SHERRIE ORTIZ EXP COSIGNER: URGENCY: STATUS: COMPLETED RTC orders: Unable to contact patient: Attempts to contact: 1st attempt: Left voicemail 2nd attempt: Letter mailedDisposition onNov 21 3rd attempt: 4th attempt: /prince/ SHERRIE ORTIZ [employer] ANNEALER Signed: 11/07/2021 15:19
--- OUTSIDE RECORDS SUMMARY | 2022-10-01 09:14 | XMS_ITS | Encounter Summary ---
:1950 Author Organization [facility] rs Address [address] [place] [id number] Support Name Relationship Address Phone JOSE OCAMPO Unavailable [address] [place] [address] JOSE OCAMPO Unavailable [address] [place] [address] Insurance Providers: All historical and current Section Date Range: From patient's date of to the date document was created.This section includes the names of all active insurance providers for the patient. Insurance Type of Plan Start of End of Group Member Insurance Policy P atient's Provider Coverage Name Policy Policy Number ID Provider's Winters's Relationship Coverage Coverage Telephone Name to Policy Number Winters [facility] MEDICARE MEDEX Jan 16, [id number] [phone] PAT[address] SUPPLEMEN HEARI 2014 10 [id number] ,[facility] MEDIC[facility] MEDEX Jan 16, [id number] [phone] PATIENT MASS SUPPLEMEN HEARI 2013 10 [id number] ,RJ JOHNSON AND MEDICARE MEDICARE PART Jan 16, PART A [id number] PATIENT (WNR) (M) A 2013 00 ,RJ MEDICARE MEDICARE PART Jan 16, PART B [id number] [phone] PATIENT (WNR) (M) B 2013 [id number] ,RJ MEDICARE MEDICARE PART Jan 16, PART A [id number] PATIENT (WNR) (M) A 2013 4 ,RJ MEDICARE MEDICARE PART Jan 16, PART B [id number] [id number] ANNETTE JENKINS PATIENT (WNR) (M) B 2013 [id number] ,RJ MEDICARE MEDICARE PART Jan 16, PART A [id number] ANNETTE JENKINS PATIENT (WNR) (M) A 2013 [id number] ,RJ MEDICARE MEDICARE PART Jan 16, PART B [phone] ANNETTE JENKINS PATIENT (WNR) (M) B 2013 ,RJ Selected Encounter This section includes the information on record at NH for the Encounter. Date/Time Encounter Type Encounter Description Reason Provider Source Nov 14, 2021 02:31 Outpatient Encounter TELEPHONE TRIAGE PM IHE Encounter Template Text not used by NH Plan of Treatment: Future Appointments (+ 6 months) and Future Tests (+/- 45 days) The Plan of Treatment section includes future care activities for the patient from all NH treatmentfacilities. This section includes future appointments and future orders which are active, pending orscheduled.Future Appointments This section includes appointments that were scheduled to occur 6 months from the date of the Encounter, up to a maximum of 20 appointments. The data comes from all NH treatment facilities. Appointment Date/Time Appointment Type Appointment Facili ty Name Dec 21, 2021 10:00 AM [facility] Apr 23, 2022 09:00 AM [facility] Lab Results: +/- 30 days of the encounter This section includes the Chemistry and Hematology Lab Results on record with NH for the patient. Radiology Reports and Pathology Reports are provided separately, in subsequent sections.Lab Results This section contains the Chemistry/Hematology Results that were resulted 30 days before or 30 daysafter the date of the Encounter. Date/Time Source Result Type Result - Unit Interpretation Reference Range Comment Nov 03, 2021 [facility] THYROID T4 FREE(FT4) Specimen T ype: SERUM 11:56 AM [facility] No comment enter ed. Ordering Provid er: RAHEEL MILAN Report Released Date/Time: Nov 03, 2021 11:25 AM Reporting Lab: [facility] [address] [address] Performing Lab: [facility] [address] [facility] [address] THYROID T4 FREE(FT4) 0.85 0.6-1.6 Nov 03, 2021 [facility] PT & INR (PROTIME) Specimen Typ e: PLASMA 11:56 AM [place] [facility] No comment enter ed. Ordering Provid er: RAHEEL MILAN Report Released Date/Time: Nov 03, 2021 11:25 AM Reporting Lab: [facility] [place] [facility] [address] [facility] [address] Performing Lab: [facility] [place] [facility] [address] [facility] [address] INR 1.4 PROTIME 15.2 H 10.0-13.1 Nov 03, 2021 [facility] HEMOGLOBIN A1C PANEL Specimen T ype: BLOOD 11:56 AM [place] [facility] Comment: Testin g performed by NGSP certified [...] Lab: [facility] [place] [facility] [address] [facility] [address] Performing Lab: [facility] [place] [facility] [address] [facility] [address] HEMOGLOBIN A1C 5.8 H 4.0-5.6 Nov 03, 2021 11:56 AM [facility] [place] TSH Specimen Type: SERUM [facility] No comment enter ed. Ordering Provid er: RAHEEL MILAN Report Released Date/Time: Nov 03, 2021 11:25 AM Reporting Lab: [facility] [place] [facility] [address] [facility] [address] Performing Lab: [facility] [place] [facility] [address] [facility] [address] TSH 2.98 0.35-5.00 Nov 03, 2021 [facility]IP[facility] PANEL, NON Specimen Type: SERUM 11:56 AM [place] [facility] FAST[facility] No comment enter ed. Ordering Provid er: RAHEEL MILAN Report Released Date/Time: Nov 03, 2021 11:25 AM Reporting Lab: [facility] [place] [facility] [address] [facility] [address] Performing Lab: [facility] [address] [facility] [address] CHOLESTEROL 261 H 0-199 TRIGLYCERIDE 88 0-150 LDL calculated 202 H 0-129 CHOL/HDL 6.4 HDL CHOLESTEROL 41 40-60 Nov 03, 2021 11:56 [facility] LIVER FUNCTION Specimen Typ e: SERUM AM [place] [facility] No comment enter ed. Ordering Provid er: RAHEEL MILAN Report Released Date/Time: Nov 03, 2021 11:25 AM Reporting Lab: [facility] [place] [facility] [address] [facility] [address] Performing Lab: [facility] [address] [facility] [address] PROTEIN,TOTAL 6.9 6.0-8.3 ALBUMIN 3.2 L 3.5-5.0 ALKALINE PHOSPHATASE 45 40-150 AST 14 5-34 ALT 12 0-55 BILIRUBIN, TOTAL 0.5 0.2-1.2 Nov 03, 2021 [facility] BASIC METABOLIC PANEL Specimen Type: SERUM 11:56 AM [place] [facility] (non-fasting) No comment enter ed. Ordering Provid er: RAHEEL MILAN Report Released Date/Time: Nov 03, 2021 11:25 AM Reporting Lab: [facility] [place] [facility] [address] [facility] [address] Performing Lab: [facility] [place] [facility] [address] [facility] [address] UREA NITROGEN 13 7-25 GLUCOSE 103 H 65-100 SODIUM 135 135-145 POTASSIUM 4.4 3.5-5.0 CHLORIDE 101 100-110 CO2 23 20-30 CREATININE, Serum 0.98 0.50-1.40 eGFR (IDMS) 76 >60 Nov 03, 2021 11:56 AM [facility] [place] CBC Specimen Type: BLOOD [facility] No comment enter ed. Ordering Provid er: RAHEEL MILAN Report Released Date/Time: Nov 03, 2021 11:25 AM Reporting Lab: [facility] [place] [facility] [address] [facility] [address] Performing Lab: [facility] [place] [facility] [address] [facility] [address] WBC 12.33 H 4.50-11.00 RBC 4.37 4.23-5.66 HGB 13.3 12.8-17 HCT 40.8 39.2-50.4 MCV 93.4 82-99 MCHC 32.6 30.8-35.1 PLT 337 140-360 RDW-CV 13.6 12.0-16.0 MCH 30.4 26.2-32.6 Social History: Smoking Status (Most current) and Tobacco Use (All prior to encounter date) This section includes the most current, and the historical, smoking and tobacco-related health factors from the NH facility where the Encounter took place.Current Smoking Status This section includes the most current smoking, or tobacco-related health factor, from the NH facility where the Encounter took place. Date/Time Current Smoking Status Comment Facility March 24, 2021 10:00 AM VA-TOBACCO USER SOME DAYS [facility] [place] [facility] Tobacco Use History This section includes a history of the smoking, or tobacco- related health factors, that were collected on or before the date of the Encounter. The data comes from the NH facility where the Encounter took place. 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 [facility] [place] [facility] March 24, 2021 10:00 AM VA-TOBACCO USE MED NO [facility] [place] [facility] March 24, 2021 10:00 AM VA-TOBACCO USER SOME DAYS [facility] [place] [facility] Dec 20, 2019 11:46 AM VA-TOBACCO USE 5 TO 15 YEARS [facility] [place] [facility] Dec 20, 2019 11:46 AM VA-TOBACCO USE ADVICE [facility] [place] [facility] Dec 20, 2019 11:46 AM 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 [facility] [place] [facility] Dec 20, 2019 11:46 AM VA-TOBACCO USE MED NO [facility] [place] [facility] Dec 20, 2019 11:46 AM VA-TOBACCO USE WI 30 MIN OF [facility] [place] [facility] Dec 20, 2019 11:46 AM VA-TOBACCO USER SOME DAYS [facility] [place] [facility] Dec 03, 2018 12:20 PM VA-TOBACCO USE 30 YEARS OR [facility] [place] [facility] Dec 03, 2018 12:20 PM VA-TOBACCO USE ADVICE [facility] [place] [facility] Dec 03, 2018 12:20 PM VA-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 Date/Time Encounter Note(s) Provider Source Nov 14, 2021 02:31 PM TELEPHONE ENCOUNTER NOTE: ANNAMARIA TAYLOR [facility] LOCAL TITLE: VISN 1 CCC MED RENEWAL [place] [facility] STANDARD TITLE: TELEPHONE ENCOUNTER NOTE DATE OF NOTE: NOV 14, 2021@14:31:55 ENTRY DATE: NOV 14, 2021@14:32:39 AUTHOR: ANNAMARIA TAYLOR EXP COSIGNER: URGENCY: STATUS: COMPLETED The patient, RJ OCAMPO ([id number]) Ph one: [phone] called the call center. The following identifiers were used to verify th is patient: . SSN. Contact Type of call: PHARMACY. Caller Response: ADM CALL RESOLVED Caller Area: [place] [facility] Provider Info: [facility] [place] [facility] (061) PACT: NO PACT 7 (Focus: Primary Care Only) Primary Care Provider: Raheel Milan PH ONE:[phone] Laborer Chemical Processing: Yessica Hall PHONE :[phone] Clinical Associate: Reji Vance PHONE:[phone] Plywood Layup Line Core Layer: Ana Briseno PHONE:[phone] PACT Clinical Pharmacist: Kira Maria PHONE:[phone] Clinical POC: Laborer Chemical Processing Yessica Hall carlos PHONE:[phone] Administrative POC: Plywood Layup Line Core Layer Ana Briseno PHONE:[phone] Author: ANNAMARIA TAYLOR Comments: Renew for mail Imported Information: Medications ACTIVE: APIXABAN 5MG TAB Prescription #:[id number] Prescribing Physician: ARHEEL MILAN (NURSE PRACTITIO) on 05/17/20 12:15 Frequency/Dosage: 2.5MG ORAL BID Evaluation/Management Code: HC PRO PHONE CALL 5- 10 MIN ([phone]). Starting at: 11/14/2021 @ 2:31:55 PM Ending at: 11/14/2021 @ 2:32:19 PM Length: 0 minutes. Chief Complaint: Not applicable to call. Class Code: Other specified counseling. 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
--- OUTSIDE RECORDS SUMMARY | 2022-10-01 09:14 | XMS_ITS | Encounter Summary ---
:1950 Author Organization [facility] rs Address [address] [place] [address] Support Name Relationship Address Phone JOSE OCAMPO Unavailable [address] [place] [address] JOSE OCAMPO Unavailable [address] [place] [address] Insurance Providers: All historical and current Section Date Range: From patient's date of to the date document was created.This section includes the names of all active insurance providers for the patient. Insurance Type of Plan Start of End of Group Member Insurance Policy P atient's Provider Coverage Name Policy Policy Number ID Provider's Winters's Relationship Coverage Coverage Telephone Name to Policy Number Winters [facility] MEDICARE MEDEX Jan 16, [id number] [phone] SUPPLEMEN HEARI 2014 10 [id number] ,RJ [facility] MEDICARE MEDEX Jan 16, [id number] [phone] PATIENT MASS SUPPLEMEN HEARI 2013 10 [id number] ,RJ J[facility] AND MEDICARE MEDICARE PART Jan 16, PART A [id number] [id number] PATIENT (WNR) (M) A 2013 00 ,RJ MEDICARE MEDICARE PART Jan 16, PART B [id number] [id number] PATIENT (WNR) (M) B 2013 00 ,RJ MEDICARE MEDICARE PART Jan 16, PART A [id number] [phone] PATIENT (WNR) (M) A 2013 4 ,RJ MEDICARE MEDICARE PART Jan 16, PART B [id number] [id number] ANNETTE JENKINS PATIENT (WNR) (M) B 2013 [id number] ,RJ MEDICARE MEDICARE PART Jan 16, PART A [id number] [phone] ANNETTE JENKINS PATIENT (WNR) (M) A 2013 [id number] 00 ,RJ MEDICARE MEDICARE PART Jan 16, PART B [id number] [phone] ANNETTE JENKINS PATIENT (WNR) (M) B [id number] 00 ,RJ Selected Encounter This section includes the information on record at [place] for the Encounter. Date/Time Encounter Type Encounter Description Reason Provider Source Nov 07, 2021 12:19 Outpatient Encounter PODIATRY PM IHE Encounter Template Text not used by [place] Plan of Treatment: Future Appointments (+ 6 months) and Future Tests (+/- 45 days) The Plan of Treatment section includes future care activities for the patient from all [place] treatmentfacilities. This section includes future appointments and future orders which are active, pending orscheduled.Future Appointments This section includes appointments that were scheduled to occur 6 months from the date of the Encounter, up to a maximum of 20 appointments. The data comes from all [place] treatment facilities. Appointment Date/Time Appointment Type Appointment Facili ty Name Nov 08, 2021 01:30 PM AMBULATORY - REHAB MEDICINE [facility] W STRN [facility] Dec 21, 2021 10:00 AM [facility] Apr 23, 2022 09:00 AM AMBULATORY - MEDICINE [facility] Lab Results: +/- 30 days of the encounter This section includes the Chemistry and Hematology Lab Results on record with [place] for the patient. Radiology Reports and Pathology Reports are provided separately, in subsequent sections.Lab Results This section contains the Chemistry/Hematology Results that were resulted 30 days before or 30 daysafter the date of the Encounter. Date/Time Source Result Type Result - Unit Interpretation Reference Range Comment Nov 03, 2021 [facility] THYROID T4 FREE(FT4) Specimen T ype: SERUM 11:56 AM [facility] No comment enter ed. Ordering Provid er: RAHEEL TRIPLETT Report Released Date/Time: Nov 03, 2021 11:25 AM Reporting Lab: [address] [address] Performing Lab: [facility] [place] [facility] [address] [facility] [address] THYROID T4 FREE(FT4) 0.85 0.6-1.6 Nov 03, 2021 [facility] HEMOGLOBIN A1C PANEL Specimen T ype: BLOOD 11:[address] [place] [facility] Comment: Testin g performed by [...] AM Reporting Lab: [facility] [place] [facility] [address] [facility] [address] Performing Lab: [facility] [place] [facility] [address] [facility] [address] HEMOGLOBIN A1C 5.8 H 4.0-5.6 Nov 03, 2021 [facility] PT & INR (PROTIME) Specimen Typ e: PLASMA 11:[address] [place] [facility] No comment enter ed. Ordering Provid er: RAHEEL TRIPLETT Report Released Date/Time: Nov 03, 2021 11:25 AM Reporting Lab: [facility] [place] [facility] [address] [facility] [address] Performing Lab: [facility] [place] [facility] [address] [facility] [address] INR 1.4 PROTIME 15.2 H 10.0-13.1 Nov 03, 2021 11:56 AM [facility] [place] TSH Specimen Type: [facility] No comment enter ed. Ordering Provid er: RAHEEL TRIPLETT Report Released Date/Time: Nov 03, 2021 11:25 AM Reporting Lab: [facility] [place] [facility] [address] [facility] [address] Performing Lab: [facility] [place] [facility] [address] [facility] [address] TSH 2.98 0.35-5.00 Nov 03, 2021 [facility] WSN LIPID PANEL, NON Specimen Type: SERUM 11:56 AM [place] [facility] No comment enter ed. Ordering Provid er: RAHEEL TRIPLETT Report Released Date/Time: Nov 03, 2021 11:25 AM Reporting Lab[facility] [address] [facility] [address] Performing Lab: [facility] [address] [facility] [address] CHOLESTEROL 261 H 0-199 TRIGLYCERIDE 88 0-150 LDL calculated 202 H 0-129 CHOL/HDL 6.4 HDL CHOLESTEROL 41 40-60 Nov 03, 2021 [facility] BASIC METABOLIC PANEL Specimen Type: SERUM 11:56 AM [place] [facility] (non-fasting) No comment enter ed. Ordering Provid er: RAHEEL TRIPLETT Report Released Date/Time: Nov 03, 2021 11:25 AM Reporting Lab: [facility] [address] [facility] [address] Performing Lab: [facility] [address] [facility] [address] UREA NITROGEN 13 7-25 GLUCOSE 103 H 65-100 SODIUM 135 135-145 POTASSIUM 4.4 3.5-5.0 CHLORIDE 101 100-110 CO2 23 20-30 CREATININE, Serum 0.98 0.50-1.40 eGFR (IDMS) 76 >60 Nov 03, 2021 11:56 [facility] LIVER FUNCTION Specimen Typ e: SERUM AM [place] [facility] No comment enter ed. Ordering Provid er: RAHEEL TRIPLETT Report Released Date/Time: Nov 03, 2021 11:25 AM Reporting Lab: [facility] [address] [facility] [address] Performing Lab: [facility] [address] [facility] [address] PROTEIN,TOTAL 6.9 6.0-8.3 ALBUMIN 3.2 L 3.5-5.0 ALKALINE PHOSPHATASE 45 40-150 AST 14 5-34 ALT 12 0-55 BILIRUBIN, TOTAL 0.5 0.2-1.2 Nov 03, 2021 11:56 AM [facility] [place] CBC Specimen Type: BLOOD [facility] No comment enter ed. Ordering Provid er: RAHEEL TRIPLETT Report Released Date/Time: Nov 03, 2021 11:25 AM Reporting Lab: [place] [facility] [facility] [address] [facility] [address] Performing Lab: [place] [facility] [facility] [address] [facility] [address] WBC 12.33 H 4.50-11.00 RBC 4.37 4.23-5.66 HGB 13.3 12.8-17 HCT 40.8 39.2-50.4 MCV 93.4 82-99 MCHC 32.6 30.8-35.1 PLT 337 140-360 RDW-CV 13.6 12.0-16.0 MCH 30.4 26.2-32.6 Social History: Smoking Status (Most current) and Tobacco Use (All prior to encounter date) This section includes the most current, and the historical, smoking and tobacco-related health factors from the [place] facility where the Encounter took place.Current Smoking Status This section includes the most current smoking, or tobacco-related health factor, from the [place] facility where the Encounter took place. Date/Time Current Smoking Status Comment Facility March 24, 2021 10:00 AM VA-TOBACCO USER SOME DAYS [facility] [place] [facility] Tobacco Use History This section includes a history of the smoking, or tobacco- related health factors, that were collected on or before the date of the Encounter. The data comes from the [place] facility where the Encounter took place. Date/Time Smoking Status/Tobacco Use Comment [facility] March 24, 2021 10:00 AM VA-TOBACCO USE 30 YEARS OR [facility] [place] [facility] March 24, 2021 10:00 AM VA-TOBACCO USE ADVICE [facility] [place] 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 March 24, 2021 10:00 AM VA-TOBACCO USE MED NO [facility] [place] [facility] March 24, 2021 10:00 AM VA-TOBACCO USER SOME DAYS [facility] [place] [facility] Dec 20, 2019 11:46 AM VA-TOBACCO USE 5 TO 15 YEARS [facility] [place] [facility] Dec 20, 2019 11:46 AM VA-TOBACCO USE ADVICE [facility] [place] 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 Dec 20, 2019 11:46 AM VA-TOBACCO USE MED NO [facility] [place] [facility] Dec 20, 2019 11:46 AM VA-TOBACCO USE [place] 30 MIN OF [facility] [place] [facility] Dec 20, 2019 11:46 AM VA-TOBACCO USER SOME DAYS [facility] [place] [facility] Dec 03, 2018 12:20 PM VA-TOBACCO USE 30 YEARS OR [facility] [place] [facility] Dec 03, 2018 12:20 PM VA-TOBACCO USE ADVICE [facility] [place] 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 Dec 03, 2018 12:20 PM VA-TOBACCO USE MED NO [facility] [place] [facility] Dec 03, 2018 12:20 PM VA-TOBACCO USE WI 30 MIN OF [facility] [place] [facility] Dec 03, 2018 12:20 PM VA-TOBACCO USER EVERY DAY [facility] [place] [facility] Encounter Notes: All associated encounter notes This section contains the clinical notes associated to the Encounter. Date/Time Encounter Note(s) Provider Source Nov 07, 2021 12:19 PM PRIMARY CARE LETTERS: LISA ARELLANO [facility] LOCAL TITLE: PATIENT LETTER - [facility]TY [facility] STANDARD TITLE: PRIMARY CARE LETTERS DATE OF NOTE: NOV 07, 2021@12:19 ENTRY DATE: NOV 07, 2021@12:20 AUTHOR: LISA ARELLANO COSIGNER: URGENCY: STATUS: COMPLETED [facility] Special[facility] Outpatient [facility] Telephone number: [phone] RJ OCAMPO [address] [place] [address] DR BARBARA [place], [place], [address] NOV 07, 2021 Dear [place], We would like to assist you in scheduling a Podi atry appointment at the [place]. We have been unable to reach you by phone. To schedule this appointment please call us at [phone] or [phone] opt [phone]. You may also call toll free . O ur booking appointment hours are Saturday through Saturday from 8:00 am to 4:00 p m. Please leave a message if you receive voicemail and le t us know a good time and telephone number where we can reach you. If we dont hear back from you within 14 days fro m the date of this letter we will discontinue the request. If you have alread y scheduled this appointment, please disregard this letter. Your health is imp ortant to us. Sincerely, Group Practice Management Team [address] [address] Specialty Outpatient Clinic [address] [place] [id number]
--- OUTSIDE RECORDS SUMMARY | 2022-10-01 09:14 | XMS_ITS | Encounter Summary ---
:1950 Author Organization [facility] rs Address [address] [place] [address] Support Name Relationship Address Phone JOSE OCAMPO Unavailable [address] [place] [address] JOSE OCAMPO Unavailable [address] [place] [address] Insurance Providers: All historical and current Section Date Range: From patient's date of to the date document was created.This section includes the names of all active insurance providers for the patient. Insurance Type of Plan Start of End of Group Member Insurance Policy P atient's Provider Coverage Name Policy Policy Number ID Provider's Winters's Relationship Coverage Coverage Telephone Name to Policy Number Winters [place] Jan 16, [id number] [phone] PATIENT SUPPLEMEN HEARI 2014 10 [id number] ,RJ [facility] MEDICARE MEDEX Jan 16, [id number] [phone] PATIENT MASS SUPPLEMEN HEARI 2013 10 [id number] ,RJ JOHNSON AND MEDICARE MEDICARE PART Jan 16, PART A [id number] PATIENT (WNR) (M) A 2013 EK 00 ,RJ MEDICARE MEDICARE PART Jan 16, PART B [id number] PATIENT (WNR) (M) B 2013 EK 00 ,RJ MEDICARE MEDICARE PART Jan 16, PART A [id number] [id number] PATIENT (WNR) (M) A 2013 4 ,RJ MEDICARE MEDICARE PART Jan 16, PART B [id number] [id number] ANNETTE JENKINS PATIENT (WNR) (M) B 2013 [id number] ,RJ MEDICARE MEDICARE PART Jan 16, PART A [id number] PATIENT (WNR) (M) A 2013 [id number] 00 ,RJ MEDICARE MEDICARE PART Jan 16, PART B [id number] [id number] PATIENT (WNR) (M) B [id number] 00 ,RJ Selected Encounter This section includes the information on record at [place] for the Encounter. Date/Time Encounter Type Encounter Description Reason Provider Source Nov 03, 2021 12:00 Outpatient Encounter EVENT (HISTORICAL) AM IHE Encounter Template Text not used by [place] Plan of Treatment: Future Appointments (+ 6 months) and Future Tests (+/- 45 days) The Plan of Treatment section includes future care activities for the patient from all [place] treatmentfacilities. This section includes future appointments and future orders which are active, pending orscheduled.Future Appointments This section includes appointments that were scheduled to occur 6 months from the date of the Encounter, up to a maximum of 20 appointments. The data comes from all [place] treatment facilities. Appointment Date/Time Appointment Type Appointment Facili ty Name Nov 08, 2021 01:30 PM AMBULATORY - RE[facility]AB MEDICINE [facility] W STRN [facility] Dec 21, 2021 10:00 AM [facility] M [facility] Apr 23, 2022 09:00 AM AMBULATORY - MEDICINE [facility] Lab Results: +/- 30 days of the encounter This section includes the Chemistry and Hematology Lab Results on record with [place] for the patient. Radiology Reports and Pathology Reports are provided separately, in subsequent sections.Lab Results This section contains the Chemistry/Hematology Results that were resulted 30 days before or 30 daysafter the date of the Encounter. Date/Time Source Result Type Result - Unit Interpretation Reference Range Comment Nov 03, 2021 [facility] THYROID T4 FREE(FT4) Specimen T ype: SERUM 11:56 AM [facility] No comment enter ed. Ordering Provid er: RAHEEL TRIPLETT Report Released Date/Time: Nov 03, 2021 11:25 AM Reporting Lab: [address] [address] Performing Lab: [facility] [place] [facility] [address] [facility] [address] THYROID T4 FREE(FT4) 0.85 0.6-1.6 Nov 03, 2021 [facility] PT & INR (PROTIME) Specimen Typ e: PLASMA 11:56 AM [place] [facility] No comment enter ed. Ordering Provid er: RAHEEL TRIPLETT Report Released Date/Time: Nov 03, 2021 11:25 AM Reporting Lab: [facility] [place] [facility] [address] [facility] [address] Performing Lab: [facility] [place] [facility] [address] [facility] [address] INR 1.4 PROTIME 15.2 H 10.0-13.1 Nov 03, 2021 [facility] HEMOGLOBIN A1C PANEL Specimen T ype: BLOOD 11:56 AM [place] [facility] Comment: Testin g performed by NGSP certified [...] Lab: [facility] [place] [facility] [address] [facility] [address] Performing Lab: [facility] [place] [facility] [address] [facility] [address] HEMOGLOBIN A1C 5.8 H 4.0-5.6 Nov 03, 2021 11:56 AM [facility] [place] TSH Specimen Type: SERUM [facility] No comment enter ed. Ordering Provid er: RAHEEL TRIPLETT Report Released Date/Time: Nov 03, 2021 11:25 AM Reporting Lab: [facility] [place] [facility] [address] [facility] [address] Performing Lab: [facility] [place] [facility] [address] [facility] [address] TSH 2.98 0.35-5.00 Nov 03, 2021 [facility] LIPID PANEL, NON Specimen Type: SERUM 11:56 AM [place] [facility] No comment enter ed. Ordering Provid er: RAHEEL TRIPLETT Report Released Date/Time: Nov 03, 2021 11:25 AM Reporting Lab[facility] [address] [facility] [address] Performing Lab: [facility] [address] [facility] [address] CHOLESTEROL 261 H 0-199 TRIGLYCERIDE 88 0-150 LDL calculated 202 H 0-129 CHOL/HDL 6.4 HDL CHOLESTEROL 41 40-60 Nov 03, 2021 [facility] BASIC METABOLIC PANEL Specimen Type: SERUM 11:56 AM [place] [facility] (non-fasting) No comment enter ed. Ordering Provid er: RAHEEL TRIPLETT Report Released Date/Time: Nov 03, 2021 11:25 AM Reporting Lab: [facility] [address] [facility] [address] Performing Lab: [facility] [address] [facility] [address] UREA NITROGEN 13 7-25 GLUCOSE 103 H 65-100 SODIUM 135 135-145 POTASSIUM 4.4 3.5-5.0 CHLORIDE 101 100-110 CO2 23 20-30 CREATININE, Serum 0.98 0.50-1.40 eGFR (IDMS) 76 >60 Nov 03, 2021 11:56 [facility] LIVER FUNCTION Specimen Typ e: SERUM AM [place] [facility] No comment enter ed. Ordering Provid er: RAHEEL TRIPLETT Report Released Date/Time: Nov 03, 2021 11:25 AM Reporting Lab: [facility] [address] [facility] [address] Performing Lab: [facility] [address] [facility] [address] PROTEIN,TOTAL 6.9 6.0-8.3 ALBUMIN 3.2 L 3.5-5.0 ALKALINE PHOSPHATASE 45 40-150 AST 14 5-34 ALT 12 0-55 BILIRUBIN, TOTAL 0.5 0.2-1.2 Nov 03, 2021 11:[address] [address] [facility] [place] CBC Specimen Type: BLOOD [facility] No comment enter ed. Ordering Provid er: RAHEEL TRIPLETT Report Released Date/Time: Nov 03, 2021 11:25 AM Reporting Lab: [facility] [address] [facility] [address] Performing Lab: [facility] [address] [facility] [address] WBC 12.33 H 4.50-11.00 RBC 4.37 4.23-5.66 [...] % 0 71 in 201 lb 28 [place] 2020 10:46 /min mm[Hg] [facility] Social History: Smoking Status (Most current) and Tobacco Use (All prior to encounter date) This section includes the most current, and the historical, smoking and tobacco-related health factors from the [place] facility where the Encounter took place.Current Smoking Status This section includes the most current smoking, or tobacco-related health factor, from the [place] facility where the Encounter took place. Date/Time Current Smoking Status Comment Facility March 24, 2021 10:00 AM VA-TOBACCO USER SOME DAYS [facility] Tobacco Use History This section includes a history of the smoking, or tobacco- related health factors, that were collected on or before the date of the Encounter. The data comes from the [place] facility where the Encounter took place. Date/Time Smoking Status/Tobacco Use Comment [facility] March 24, 2021 10:00 AM [place]-TOBACCO USE 30 YEARS OR [facility] [place] [facility] March 24, 2021 10:00 AM VA-TOBACCO USE ADVICE [facility] [place] 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 March 24, 2021 10:00 AM VA-TOBACCO USE MED NO [facility] [place] [facility] March 24, 2021 10:00 AM VA-TOBACCO USER SOME DAYS [facility] [place] [facility] Dec 20, 2019 11:46 AM VA-TOBACCO USE 5 TO 15 YEARS [facility] [place] [facility] Dec 20, 2019 11:46 AM VA-TOBACCO USE ADVICE [facility] [place] 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 Dec 20, 2019 11:46 AM VA-TOBACCO USE MED NO [facility] [place] [facility] Dec 20, 2019 11:46 AM VA-TOBACCO USE [place] 30 MIN OF [facility] [place] [facility] Dec 20, 2019 11:46 AM VA-TOBACCO USER SOME DAYS [facility] [place] [facility] Dec 03, 2018 12:20 PM VA-TOBACCO USE 30 YEARS OR [facility] [place] [facility] Dec 03, 2018 12:20 PM VA-TOBACCO USE ADVICE [facility] [place] 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 Dec 03, 2018 12:20 PM VA-TOBACCO USE MED NO [facility] [place] [facility] Dec 03, 2018 12:20 PM VA-TOBACCO USE [place] 30 MIN OF [facility] [place] [facility] Dec 03, 2018 12:20 PM VA-TOBACCO USER EVERY DAY [facility] [place] [facility]
--- OUTSIDE RECORDS SUMMARY | 2022-10-01 09:14 | XMS_ITS ---
:1950 Author Organization [facility] rs Address [address] [place] [id number] Support Name Relationship Address Phone JOSE OCAMPO Unavailable [address] [place] [address] JOSE OCAMPO Unavailable [address] [place] [address] Insurance Providers: All historical and current Section [...] Telephone Name to Policy Number [place] [employer] ID MEDICARE MEDEX Jan 16, [id number] PAT[address] SUPPLEMEN HEARI 2014 10 [id number] ,[facility] MEDIC[facility] MEDEX Jan 16, [id number] [phone] PATIENT MASS SUPPLEMEN HEARI 2013 10 [id number] ,[facility] AND MEDICARE MEDICARE PART Jan 16, PART A [id number] PATIENT (WNR) (M) A 2013 00 ,RJ MEDICARE MEDICARE PART Jan 16, PART B [id number] PATIENT (WNR) (M) B 2013 00 ,RJ MEDICARE MEDICARE PART Jan 16, PART A [id number] PATIENT (WNR) (M) A 2013 4 ,RJ MEDICARE MEDICARE PART Jan 16, PART B [id number] PATIENT (WNR) (M) B 2013 [id number] ,RJ MEDICARE MEDICARE PART Jan 16, PART A [id number] [phone] PATIENT (WNR) (M) A 2013 [id number] ,RJ MEDICARE MEDICARE PART Jan 16, PART B [id number] PATIENT (WNR) (M) B 2013 ,RJ Selected Encounter This section includes the information on record at [place] for the Encounter. Date/Time Encounter Type Encounter Reason Provider Source Description Nov 03, 2021 DURABLE MEDICAL PROSTHETICS/ORTHO ICD-10-CM J44.9 PATI ARAGON 12:38 PM [facility] Chronic AM J obstructive pulmonary disease, unspecified with Provider Comments: Chronic Obstructive Pulmonary Disease, unspecified IHE Encounter Template Text not used by [place] Assessments - Encounter Diagnoses This section includes the primary and secondary diagnoses documented for the Encounter. Date/Time Primary/Secondary Diagnosis Name Provider Source Diagnosis Nov 13, 2021 PRIMARY Chronic [facility] 12:42 PM obstructive [facility] pulmonary disease, unspecified Plan of Treatment: Future Appointments (+ 6 [...] 01:30 PM AMBULATORY - REHAB MEDICINE [facility] [place] [facility] Dec 21, 2021 10:00 AM [facility] [place] [facility] Apr 23, 2022 09:00 AM [facility] Lab Results: +/- 30 days of [...] Interpretation Reference Range Comment Nov 03, 2021 [place] [facility] THYROID T4 FREE(FT4) Specimen T ype: SERUM 11:56 AM [place] [facility] No comment enter ed. Ordering Provid er: RAHEEL TRIPLETT Report Released Date/Time: Nov 03, 2021 11:25 AM Reporting [facility] [place] [facility] [address] [facility] [address] Performing Lab: [facility] [place] [facility] [address] [facility] [address] THYROID T4 FREE(FT4) 0.85 0.6-1.6 Nov 03, 2021 [place] [facility] PT & INR (PROTIME) Specimen Typ e: PLASMA 11:56 AM [place] [facility] No comment enter ed. Ordering Provid er: RAHEEL TRIPLETT Report Released Date/Time: Nov 03, 2021 11:25 AM Reporting Lab: [facility] [place] [facility] [address] [facility] [address] Performing [facility]: [facility] [place] [facility] [address] [facility] [address] INR 1.4 PROTIME 15.2 H 10.0-13.1 Nov 03, 2021 [facility] HEMOGLOBIN A1C PANEL Specimen T ype: BLOOD 11:56 AM [place] [facility] Comment: Testin g performed by NG[employer] certified [...] 03, 2021 11:25 AM Reporting Lab: [facility] [place] [facility] [address] [facility] [address] Performing Lab : [facility] [address] [facility] [address] HEMOGLOBIN A1C 5.8 H 4.0-5.6 Nov 03, 2021 11:56 AM [facility] [place] TSH Specimen Type: SERUM [facility] No comment enter ed. Ordering Provid er: RAHEEL TRIPLETT Report Released Date/Time: Nov 03, 2021 11:25 AM Reporting Lab: [facility] [place] [facility] [address] [facility] [address] Performing Lab: [place] [facility] [place] [facility] [address] [facility] [address] TSH 2.98 0.35-5.00 Nov 03, 2021 [facility] LIPID PANEL, NON Specimen Type: SERUM 11:56 AM [place] [facility] FASTING No comment enter ed. Ordering Provid er: RAHEEL TRIPLETT Report Released Date/Time: Nov 03, 2021 11:25 AM Reporting Lab: [place] [facility] [place] [facility] [address] [facility] [address] Performing Lab: [place] [facility] [place] [facility] [address] [facility] [address] CHOLESTEROL 261 H 0-199 TRIGLYCERIDE 88 0-150 LDL calculated 202 H 0-129 CHOL/HDL 6.4 HDL CHOLESTEROL 41 40-60 Nov 03, 2021 [facility] BASIC METABOLIC PANEL Specimen Type: SERUM 11:56 AM [place] [facility] (non-fasting) No comment enter ed. Ordering Provid er: RAHEEL TRIPLETT Report Released Date/Time: Nov 03, 2021 11:25 AM Reporting Lab: [facility] [place] [facility] [address] [facility] [address] Performing Lab: [facility] [place] [facility] [address] [facility] [address] UREA NITROGEN 13 7-25 GLUCOSE 103 H 65-100 SODIUM 135 135-145 POTASSIUM 4.4 3.5-5.0 CHLORIDE 101 100-110 CO2 23 20-30 CREATININE, Serum 0.98 0.50-1.40 eGFR (IDMS) 76 >60 Nov 03, 2021 11:56 [facility] LIVER FUNCTION Specimen Typ e: SERUM AM [place] [facility] No comment enter ed. Ordering Provid er: RAHEEL TRIPLETT Report Released Date/Time: Nov 03, 2021 11:25 AM Reporting Lab: [place] [facility] [place] [facility] [address] [facility] [address] Performing Lab: [facility] [place] [facility] [address] [facility] [address] PROTEIN,TOTAL 6.9 6.0-8.3 ALBUMIN 3.2 L 3.5-5.0 ALKALINE PHOSPHATASE 45 40-150 AST 14 5-34 ALT 12 0-55 BILIRUBIN, TOTAL 0.5 0.2-1.2 Nov 03, 2021 11:56 AM [place] [facility] [place] CBC Specimen Type: BLOOD H[facility] No comment enter ed. Ordering Provid er: RAHEEL TRPILETT Report Released Date/Time: Nov 03, 2021 11:25 AM Reporting Lab: [place] [facility] [place] [facility] [address] [facility] [address] Performing Lab[facility] [place] [facility] [address] [facility] [address] WBC 12.33 H 4.50-11.00 RBC 4.37 4.23-5.66 [...] % 0 71 in 201 lb 28 [place] 2020 10:46 /min mm[Hg] [facility] AM [place] [facility] Social History: Smoking Status (Most current) and [...] DAYS [facility] [place] [facility] Tobacco Use History This section includes a history of the smoking, or tobacco- related health factors, that were collected on or before the date of the Encounter. The data comes from the [place] facility where the Encounter took place. 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 [facility] [place] [facility] March 24, 2021 10:00 AM VA-TOBACCO USE MED NO [facility] [place] [facility] March 24, 2021 10:00 AM VA-TOBACCO USER SOME DAYS [facility] [place] [facility] Dec 20, 2019 11:46 AM VA-TOBACCO USE 5 TO 15 YEARS [facility] [place] [facility] Dec 20, 2019 11:46 AM VA-TOBACCO USE ADVICE [facility] [place] [facility] Dec 20, 2019 11:46 AM VA-TOBACCO USE LEASING COORDINATOR YES [facility] [place] [facility] Dec 20, 2019 11:46 AM VA-TOBACCO USE MED NO [facility] [place] [facility] Dec 20, 2019 11:46 AM VA-TOBACCO USE WI 30 MIN OF [facility] [place] [facility] Dec 20, 2019 11:46 AM VA-TOBACCO USER SOME DAYS [facility] [place] [facility] Dec 03, 2018 12:20 PM VA-TOBACCO USE 30 YEARS OR [facility] [place] [facility] Dec 03, 2018 12:20 PM VA-TOBACCO USE ADVICE [facility] [place] [facility] Dec 03, 2018 12:20 PM VA-TOBACCO USE LEASING COORDINATOR NO [facility] [place] [facility] Dec 03, 2018 12:20 PM VA-TOBACCO USE MED NO [facility] [place] [facility] Dec 03, 2018 12:20 PM VA-TOBACCO USE WI 30 MIN OF [facility] [place] [facility] Dec 03, 2018 12:20 PM VA-TOBACCO USER EVERY DAY [place] [facility] [place] [facility]
--- OUTSIDE RECORDS SUMMARY | 2022-10-01 09:14 | XMS_ITS | Encounter Summary ---
:1950 Author Organization [facility] Address [address] [place] [id number] Support Name Relationship Address Phone BILL OCAMPO Unavailable [address] [place] [address] BILL OCAMPO Unavailable [address] [place] [address] Insurance Providers: All historical and current Section Date Range: From patient's date of to the date document was created.This section includes the names of all active insurance providers for the patient. Insurance Type of Plan Start of End of Group Member Insurance Policy P atient's Provider Coverage Name Policy Policy Number ID Provider's Winters's Relationship Coverage Coverage Telephone Name to Policy Number Winters [facility] MEDICARE MEDEX Jan 16, [id number] [phone] PAT[address] SUPPLEMEN HEARI 2013 10 [id number] ,RJ JOHNSON [facility] MEDICARE MEDEX Jan 16, [id number] [phone] PATIENT MASS SUPPLEMEN HEARI 2013 10 [id number] ,RJ JOHNSON AND MEDICARE MEDICARE PART Jan 16, PART A [id number] PATIENT (WNR) (M) A 2013 00 ,RJ MEDICARE MEDICARE PART Jan 16, PART B [id number] PATIENT (WNR) (M) B 2013 00 ,RJ MEDICARE MEDICARE PART Jan 16, PART A [id number] PATIENT (WNR) (M) A 2013 4 ,RJ MEDICARE MEDICARE PART Jan 16, PART B [id number] PATIENT (WNR) (M) B 2013 [id number] ,RJ MEDICARE MEDICARE PART Jan 16, PART A [id number] [phone] PATIENT (WNR) (M) A 2013 [id number] ,RJ MEDICARE MEDICARE PART Jan 16, PART B [id number] PATIENT (WNR) (M) B 2013 ,RJ Selected Encounter This section includes the information on record at [place] for the Encounter. Date/Time Encounter Type Encounter Reason Provider Source Description Nov 03, 2021 OFFICE O/P EST PRIMARY ICD-10-CM J44.9 PATI MILAN 11:00 AM MOD 30-39 MIN CARE/MEDICINE Chronic AM J obstructive pulmonary disease, unspecified with Provider Comments: COPD - Chronic Obstructive Pulmonary Disease ([facility] [id number]) IHE Encounter Template Text not used by [place] Assessments - Encounter Diagnoses This section includes the primary and secondary diagnoses documented for the Encounter. Date/Time Primary/Secondary Diagnosis Name Provider Source Diagnosis Nov 21, 2021 PRIMARY Chronic PATI MILAN [facility] WSTR N 10:03 AM obstructive AM J [place] [facility] pulmonary disease, unspecified Nov 21, 2021 SECONDARY Acute embolism PATI MILAN [facility] WS TRN 10:03 AM and thrombosis of AM J [place] [facility] deep vein of unsp low extrm Nov 21, 2021 SECONDARY Hypothyroidism, [facility]03 AM unspecified AM J [place] [facility] Nov 21, 2021 SECONDARY Other reduced PATI MILAN [facility] WST RN 10:03 AM mobility AM J [place] [facility] Nov 21, 2021 SECONDARY [facility] AM AM J [place] [facility] Nov 21, 2021 SECONDARY Tobacco use PATI MILAN [facility] WSTR N 10:03 AM AM J [place] [facility] Plan of Treatment: Future Appointments (+ 6 [...] treatment facilities. Appointment Date/Time Appointment Type Appointment Robert hernandez Name Nov 08, 2021 01:30 PM [facility] [place] [facility] Dec 21, 2021 10:00 AM [facility] [place] [facility] Apr 23, 2022 09:00 AM [facility] [place] [facility] Lab Results: +/- 30 days [...] Interpretation Reference Range Comment Nov 03, 2021 [facility] THYROID T4 FREE(FT4) Specimen T ype: SERUM 11:56 AM [facility] No comment enter ed. Ordering Provid er: RAHEEL MILAN Report Released Date/Time: Nov 03, 2021 11:25 AM Reporting [facility] [address] [facility] [address] Performing Lab: [facility] [address] [facility] [address] THYROID T4 FREE(FT4) 0.85 0.6-1.6 Nov 03, 2021 [facility] PT & INR (PROTIME) Specimen Typ e: PLASMA 11:56 AM [facility] No comment enter ed. Ordering Provid er: RAHEEL MILAN Report Released Date/Time: Nov 03, 2021 11:25 AM Reporting Lab: [facility] [address] [facility] [address] Performing [facility]: [facility] [address] [facility] [address] INR 1.4 PROTIME 15.2 H 10.0-13.1 Nov 03, 2021 [facility]OSATRN HEMOGLOBIN A1C PANEL Specimen T ype: BLOOD [...] Nov 03, 2021 11:25 AM Reporting Lab: [place] [facility] [place] [facility] [address] [facility] [address] Performing Lab: [place] [facility] [place] [facility] [address] [facility] [address] HEMOGLOBIN A1C 5.8 H 4.0-5.6 Nov 03, 2021 11:56 AM [facility] [place] [facility] Specimen Type: SERUM [facility] No comment enter ed. Ordering Provid er: RAHEEL MILAN Report Released Date/Time: Nov 03, 2021 11:25 AM Reporting Lab: [place] [facility] [place] [facility] [address] [facility] [address] Performing Lab: [place] [facility] [place] [facility] [address] [facility] [address] TSH 2.98 0.35-5.00 Nov 03, 2021 [facility] LIPID PANEL, NON Specimen Type: SERUM 11:56 AM [place] [facility] No comment enter ed. Ordering Provid er: RAHEEL MILAN Report Released Date/Time: Nov 03, 2021 11:25 AM Reporting Lab: [place] [facility] [place] [facility] [address] [facility] [address] Performing Lab: [place] [facility] [place] [facility] [address] [facility] [address] CHOLESTEROL 261 H 0-199 TRIGLYCERIDE 88 0-150 [...] [place] [facility] [address] [facility] [address] Performing Lab: [facility] [place] [facility] [address] [facility] [address] UREA NITROGEN 13 7-25 GLUCOSE 103 H 65-100 SODIUM 135 135-145 POTASSIUM 4.4 3.5-5.0 CHLORIDE 101 100-110 CO2 23 20-30 CREATININE, Serum 0.98 0.50-1.40 eGFR (IDMS) 76 >60 Nov 03, 2021 11:56 [facility] LIVER FUNCTION Specimen Typ e: SERUM AM [place] [facility] No comment enter ed. Ordering Provid er: RAHEEL MILAN Report Released Date/Time: Nov 03, 2021 11:25 AM Reporting Lab: [place] [facility] [facility] [address] [facility] [address] Performing Lab: [place] [facility] [place] [facility] [address] [facility] [address] PROTEIN,TOTAL 6.9 6.0-8.3 ALBUMIN 3.2 L 3.5-5.0 [...] [place] [facility] [address] [facility] [address] Performing Lab: [facility] [place] [facility] [address] [facility] [address] WBC 12.33 H 4.50-11.00 RBC 4.37 4.23-5.66 [...] 28 [place] 2020 10:46 /min mm[Hg] CNTRL AM [facility] [place] [facility] Social History: Smoking Status (Most [...] USER SOME DAYS [facility] [place] [facility] Tobacco Use History This section includes a history of the smoking, or tobacco- related health factors, that were collected on or before the date of the Encounter. The data comes from the [place] facility where the Encounter took place. Date/Time Smoking Status/Tobacco Use Comment [facility] March 24, 2021 10:00 AM VA-TOBACCO USE 30 YEARS OR [facility] [place] [facility] March 24, 2021 10:00 AM VA-TOBACCO USE ADVICE [facility] [place] [facility] March 24, 2021 10:00 AM VA-TOBACCO USE RIGHT OF WAY MAN NO [facility] [place] [facility] March 24, 2021 10:00 AM VA-TOBACCO USE MED NO [facility] C [facility] [place] [facility] March 24, 2021 10:00 AM VA-TOBACCO USER SOME DAYS [facility] [place] [facility] Dec 20, 2019 11:46 AM VA-TOBACCO USE 5 TO 15 YEARS [facility] [place] [facility] Dec 20, 2019 11:46 AM VA-TOBACCO USE ADVICE [facility] C [facility] [place] [facility] Dec 20, 2019 11:46 AM VA-TOBACCO USE RIGHT OF WAY MAN YES [facility] [place] [facility] Dec 20, 2019 11:46 AM VA-TOBACCO USE MED NO [facility] C [facility] [place] [facility] Dec 20, 2019 11:46 AM VA-TOBACCO USE WI 30 MIN OF [facility] [place] [facility] Dec 20, 2019 11:46 AM VA-TOBACCO USER SOME DAYS [facility] [place] [facility] Dec 03, 2018 12:20 PM VA-TOBACCO USE 30 YEARS OR [facility] [place] [facility] Dec 03, 2018 12:20 PM VA-TOBACCO USE ADVICE VA C [facility]L [facility] [place] [facility] Dec 03, 2018 12:20 PM VA-TOBACCO USE RIGHT OF WAY MAN NO [facility] [place] [facility] Dec 03, 2018 12:20 PM VA-TOBACCO USE MED NO VA C [facility]TRL [facility] [place] [facility] Dec 03, 2018 12:20 PM VA-TOBACCO USE WI 30 MIN OF VA CN[facility] [place] [facility] Dec 03, 2018 12:20 PM VA-TOBACCO USER EVERY DAY [facility] [place] [facility] Encounter Notes: All associated encounter notes This section contains the clinical notes associated to the Encounter. Date/Time Encounter Note(s) Provider Source Nov 14, 2021 02:45 MEDICATION MGT NOTE: ALYSSIA DOWNEY [facility] PM LOCAL TITLE: OUTPATIENT MEDICATION REQUEST NEO ARET [place] [facility] STANDARD TITLE: MEDICATION MGT NOTE DATE OF NOTE: NOV 14, 2021@14:45 ENTRY DATE: NOV 14, 2021@14:45:46 AUTHOR: ALYSSIA DOWNEY [facility] EXP COSIGNER: URGENCY: STATUS: COMPLETED Medication Request Date of Request: Oct Is this a New Medication? No Active and Recently Outpatient Medicatio ns (including Supplies): Active Outpatient Medications Status 1) ALBUTEROL 90MCG (CFC-F) 200D ORAL INHL INHALE 2 PUFFS ACTIVE BY MOUTH EVERY 4 HOURS NEEDED 2) APIXABAN 5MG TAB TAKE ONE-HALF TABLET BY MOUT H TWICE ACTIVE DAILY PLEASE NOTE CHANGE IN DIRECTION 3) LEVOTHYROXINE NA (SYNTHROID) 25MCG TAB TAKE O NE ACTIVE TABLET BY MOUTH EVERY MORNING 30 MINUTES BEFORE BREAKFAST FOR THYROID - TAKE ON AN EMPTY STOMAC H WITH A FULL GLASS OF WATER 4) OLODATEROL/TIOTROP 2.5MCG/ACTUAT 60D INH INHA LE 2 ACTIVE PUFFS (1 DOSE) BY MOUTH ONCE DAILY 5) TRAZODONE HCL 50MG TAB TAKE ONE TABLET BY TIFFANY TH AT ACTIVE BEDTIME Active Non-VA Medications Status 1) Non-VA ASPIRIN 81MG EC TAB 81MG BY MOUTH TWIC E DAILY ACTIVE 2) Non-VA VARENICLINE 1MG TAB 1 TABLET BY MOUTH TWICE ACTIVE DAILY 7 Total Medications The following actions were performed: Placed in Provider Folder APIXABAN 5MG TAB [facility][id number]: RAHEEL MILAN (NURSE PRACTITIO) on 05/17/20 21 12:15 Frequency/Dosage: 2.5MG ORAL BID *Please let patient know ana t this request may take up to 72 hours to process.* /prince/ ALYSSIA DOWNEY RN MSN REGISTERED NURSE Signed: 11/14/2021 14:46 Receipt Acknowledged By: * AWAITING SIGNATURE * RAHEEL MILAN Nov 03, 2021 01:40 PRIMARY CARE NURSE PRACTITIONER OUTPATIE NT NOTE: RAHEEL MILAN [place] [facility] PM LOCAL TITLE: NURSE PRACTITIONER OUTPATIENT NOTE [facility] STANDARD TITLE: PRIMARY CARE NURSE PRACTITIONER OUTPATIENT NOTE DATE OF NOTE: NOV 03, 2021@13:40 ENTRY DATE: NOV 03, 2021@13:40:53 AUTHOR: RAHEEL MILAN EXP COSIGNER: URGENCY: STATUS: COMPLETED Chief complaint: 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 HPI: Ple[place] male [place] here with his . S he is his caregiver, he is dependent upon her for ADLs and mobility supervi christy. Without here, he would require LTC placement. He was recenlty in the [facility] with COPD exacerbation and is now on home oxygen. He is feeling better since discharge but is still frail and fatigues very easily. Additionally, he desats with endurance. He is followed by mracus Lopez and has appt 021. He is closely followed by his PCP every two [facility] who manages most of his medical concerns. PMH: Active problems - Computerized Problem List is t he source for the followin. Onychomycosis 2. DVT - Deep vein thrombosis 3. Hypothyroidism ([facility] [id number]) 4. Hyperlipidemia ([facility] [id number]) 5. Tobacco User ([facility] [id number]) 6. COPD - Chronic Obstructive Pulmonary Disease ([facility] [id number]) following with Dr Sher 7. Carcinoma in situ of ear, nose and throat 8. Carcinoma in situ of lung 9. Tinnitus 10. H/O: Deep vein thrombosis 11. Carotid artery stenosis 12. Cervical disc disease 13. Insomnia ([facility] [id number]) 14. OA - Osteoarthritis ([facility] [id number]) 15. Peripheral vascular disease Allergies: MOXIFLOXACIN The following VA and Non-VA meds were re conciled with patient. The patient was educated on the use of the medications including indication and side effects. Active and Recently Outpatient Medicatio ns (excluding Supplies): Active Outpatient Medications Status 1) APIXABAN 5MG TAB TAKE ONE-HALF TABLET BY MOUT H TWICE ACTIVE DAILY PLEASE NOTE CHANGE IN DIRECTION 2) LEVOTHYROXINE NA (SYNTHROID) 25MCG TAB TAKE O NE ACTIVE TABLET BY MOUTH EVERY MORNING 30 MINUTES BEFORE BREAKFAST FOR THYROID - TAKE ON AN EMPTY STOMAC H WITH A FULL GLASS OF WATER 3) OLODATEROL/TIOTROP 2.5MCG/ACTUAT 60D INH INHA LE 2 ACTIVE PUFFS (1 DOSE) BY MOUTH ONCE DAILY 4) TRAZODONE HCL 50MG TAB TAKE ONE TABLET BY TIFFANY TH AT ACTIVE BEDTIME Pending Outpatient Medications Status 1) ALBUTEROL 90MCG (CFC-F) 200D ORAL INHL INHALE 2 PUFFS PENDING BY MOUTH EVERY 4 HOURS NEEDED Active Non-VA Medications Status 1) Non-VA ASPIRIN 81MG EC TAB 81MG BY MOUTH TWIC E DAILY ACTIVE 2) Non-VA VARENICLINE 1MG TAB 1 TABLET BY MOUTH TWICE ACTIVE DAILY 7 Total Medications Review of Systems: Constitutional: (-)for Fevers , chills, weakness, nights sweats Cardiac: (-) for: Chest pain, Palpitations Respiratory: (+) for: CHRISTENSEN GI/Digestive: (-) for: change in appetite, dysp hagia, heartburn, abdominal pain, change in stool /Urologic: Male : (-) for: dysuria, frequen cy, nocturia, urgency, hematuria, incontinence Musculoskeletal: (+) for: weakness Neurologic: (-) for : Headaches, dizziness Skin: (-) for: Rash, lesions, acne, dry skin, i tching, hives On examination: 97.3 F [36.3 C] (03/13/2019 14:26)101/67 (2020 10:46)109 (11/03/2021 10:46)26 (11/03/2021 10:46)0 (11/03/2021 10:46)B CO: 28.1201 lb [91.4 kg] (11/03/2021 10:46) is alert and oriented X3 Cardiovasc: 2plus carotids w ithout bruits, no JVD Heart Reguler rate and rhythm NL S1S2 no S3 or murmur Respiration: diminished bilat ABD: Benign normal active bowel sounds no HSM no rebound or referred pain EXT: no clubbing, edema, or cyanosis All diagnostics from past month were reviewed wi th patient. Assessment/plan: Active problems - Computerized Problem List is t he source for the followin. Onychomycosis - refer to Podiatry 2. DVT - Deep vein thrombosis - on apixaban man aged [facility], labs ordered. 3. Hypothyroidism ([facility] [id number]) - on levothyro xine, TSH today. 4. Tobacco User ([facility] [id number]) - he no longer smokes. 5. COPD - Chronic Obstructive Pulmonary Disease ([facility] [id number]) - see above 6. Reduced mobility - balance issues re lated previous fx of left leg, limited endurance due to compromised respiratory status, dependent on for ADLs - will consult with SW regarding referral to CGS. Health Care Maintenance: Offered C-scope declined. Offered FIT declined. Review of medial record = 5mins Time spent with Patient including shared decisio n making = 20 mins Post visit documentation = 5mins Total time = 30 mins Follow up visit in 6 mos. Alert to PACT RN - Labs as necessary to address clinical status. Avg Risk Colorectal Cancer Screen: AVERAGE RISK colorectal cancer screening is due based on information available to this clinical reminder Patient declined screening/surveillance. DM/PVD/ESRD Foot Exam: Diabetic/Peripheral Vascular Disease Foot Exam: Patient had a complete visual examination of th e feet at this encounter. Result of Exam: Abnormal Patient's feet were examined for presence of do rsalis pedis and posterior tibial pulses. Results of Exam: Normal Patient had a monofilament examination of sensa tion in feet at this encounter. Results of Exam: Normal The patient's foot risk was calculated, and the patient was educated on proper footwear and foot care. Please calculate the patient's Foot Risk Score (FRS) - 1 Required: (RATE the foot with the HIGHEST risk!) 1 = LOW RISK Medication Reconciliation: Outpatient: Has the patient been taking medications as docu mented in the EMLR? YES: The patient has been taking medications as documented in the EMLR. Essential Medication List for Review used to co mplete this medication reconciliation. INCLUDED IN THIS LIST: Alphabetical list of act jimmy outpatient prescriptions dispensed from this [facility] (local) an d dispensed from another [place] or [facility]D facility (remote) as well as inpatien t orders (local, pending and active), local clinic medications, locally documented non-VA medications, and local prescriptions that have or been discontinued in the past 90 days. - All changes in medications, including all non -VA/Herbal/OTC medications were entered into CPRS. - If there were any medications the patient mir uld no longer take, they were discontinued. - The patient/caregiver was instructed to updat e this list, discard old lists, and take this list to the next appointme nt, whether with a VA or non-VA provider. /prince/ Raheel Milan DNP, DAY TRADER-BC, CNL Primary Care Nurse Practitioner Signed: 11/03/2021 13:52 Nov 03, 2021 10:53 PREVENTIVE MEDICINE NURSING NOTE: REJI SAMUEL CNTRL WSTRN AM LOCAL TITLE: CLINICAL REMINDERS/NURSING [place] [facility] STANDARD TITLE: PREVENTIVE MEDICINE NURSING NOTE DATE OF NOTE: NOV 03, 2021@10:53 ENTRY DATE: NOV 03, 2021@10:53:49 AUTHOR: REJI SAMUEL EXP COSIGNER: URGENCY: STATUS: COMPLETED Advance Directive Screen: Patient has an up-to-date Advance Directive doc ument, but it is not on file at this [facility]. Patient has been requested t o forward a copy to his/her clinician. The patient received education about advance di rectives as well as written notification of his/her rights. Comment: vets Bill is vets proxy /prince/ Reji [facility] Psychologist Counseling COMPENSATION AND BENEFITS ANALYST,PRIMARY CARE Signed: 11/03/2021 10:54
--- OUTSIDE RECORDS SUMMARY | 2022-10-01 09:14 | XMS_ITS | Encounter Summary ---
:1950 Author Organization [facility] rs Address [address] [place] [address] Support Name Relationship Address Phone JOSE OCAMPO Unavailable [address] [place] [address] JOSE OCAMPO Unavailable [address] [place] [address] Insurance Providers: All historical and current Section Date Range: From patient's date of to the date document was created.This section includes the names of all active insurance providers for the patient. Insurance Type of Plan Start of End of Group Member Insurance Policy P atient's Provider Coverage Name Policy Policy Number ID Provider's Winters's Relationship Coverage Coverage Telephone Name to Policy Number Winters [facility] MEDICARE MEDEX Jan 16, [id number] [phone] PATIENT SUPPLEMEN HEARI 2013 10 [id number] ,RJ JOHNSON AND ELLEN [facility] MEDICARE MEDEX Jan 16, [id number] [phone] PATIENT MASS SUPPLEMEN HEARI 2013 10 [id number] ,RJ JOHNSON AND MEDICARE MEDICARE PART Jan 16, PART A [id number] PATIENT (WNR) (M) A 2013 00 ,RJ MEDICARE MEDICARE PART Jan 16, PART B [id number] PATIENT (WNR) (M) B 2013 00 ,RJ MEDICARE MEDICARE PART Jan 16, PART A [id number] PATIENT (WNR) (M) A 2013 4 ,RJ MEDICARE MEDICARE PART Jan 16, PART B [id number] PATIENT (WNR) (M) B 2013 [id number] ,RJ MEDICARE MEDICARE PART Jan 16, PART A [id number] [phone] PATIENT (WNR) (M) A 2013 [id number] ,RJ MEDICARE MEDICARE PART Jan 16, PART B [id number] [phone] PATIENT (WNR) (M) B 2013 00 ,RJ Selected Encounter This section includes the information on record at [place] for the Encounter. Date/Time Encounter Type Encounter Reason Provider Source Description Nov 08, 2021 HEARING AID AUDIOLOGY ICD-10-CM Z46.1 ADRIAN GOTTI 01:30 PM REPAIR/MODIFYIN Encounter for L G fitting and adjustment of hearing aid with Provider Comments: Encounter for Fitting and Adjustment of Hearing Aid IHE Encounter Template Text not used by [facility] Assessments - Encounter Diagnoses This section includes the primary and secondary diagnoses documented for the Encounter. Date/Time Primary/Secondary Diagnosis Name Provider Source Diagnosis Nov 08, 2021 PRIMARY Encounter for BARBIE BELTRAN [facility] WSN 01:52 PM fitting and [facility] [place] [facility] adjustment of hearing aid Nov 08, 2021 SECONDARY Sensorineural BARBIE BELTRAN [facility] WSTRN 01:52 PM hearing loss, [facility] [place] [facility] bilateral Plan of Treatment: Future Appointments (+ 6 months) and Future Tests (+/- 45 days) The Plan of Treatment section includes future care activities for the patient from all [place] treatmentfacilities. This section includes future appointments and future orders which are active, pending orscheduled.Future Appointments This section includes appointments that were scheduled to occur 6 months from the date of the Encounter, up to a maximum of 20 appointments. The data comes from all [place] treatment facilities. Appointment Date/Time Appointment Type Appointment Facili ty Name Dec 21, 2021 10:00 AM [facility] [place] [facility] Apr 23, 2022 09:00 AM AMBULATORY MEDICINE [facility] Lab Results: +/- 30 days of the encounter This section includes the Chemistry and Hematology Lab Results on record with [place] for the patient. Radiology Reports and Pathology Reports are provided separately, in subsequent sections.Lab Results This section contains the Chemistry/Hematology Results that were resulted 30 days before or 30 daysafter the date of the Encounter. Date/Time Source Result Type Result - Unit Interpretation Reference Range Comment Nov 03, 2021 [place] [facility] THYROID T4 FREE(FT4) Specimen T ype: SERUM 11:56 AM [place] [facility] No comment enter ed. Ordering Provid er: RAHEEL TRIPLETT Report Released Date/Time: Nov 03, 2021 11:25 AM Reporting Lab: [facility] [place] [facility] [address] [facility] [address] Performing Lab: [facility] [place] [facility] [address] [facility] [address] THYROID T4 FREE(FT4) 0.85 0.6-1.6 Nov 03, 2021 [place] [facility] PT & INR (PROTIME) Specimen Typ e: PLASMA 11:56 AM [place] [facility] No comment enter ed. Ordering Provid er: RAHEEL TRIPLETT Report Released Date/Time: Nov 03, 2021 11:25 AM Reporting Lab: [facility] [place] [facility] [address] [facility] [address] Performing Lab: [facility] [place] [facility] [address] [facility] [address] INR 1.4 PROTIME 15.2 H 10.0-13.1 Nov 03, 2021 [facility] HEMOGLOBIN A1C PANEL Specimen T ype: BLOOD 11:56 AM [place] [facility] Comment: Testin g performed by [...] Nov 03, 2021 11:25 AM Reporting Lab: [facility] [place] [facility] [address] [facility] [address] Performing Lab: [facility] [address] [facility] [address] HEMOGLOBIN A1C 5.8 H 4.0-5.6 Nov 03, 2021 11:56 AM [facility] [place] [facility] Specimen Type: [facility] No comment enter ed. Ordering Provid er: RAHEEL TRIPLETT Report Released Date/Time: Nov 03, 2021 11:25 AM Reporting Lab: [facility] [place] [facility] [address] [facility] [address] Performing Lab: [place] [facility] [place] [facility] [address] [facility] [address] TSH 2.98 0.35-5.00 Nov 03, 2021 [facility] LIPID PANEL, NON Specimen Type: SERUM 11:56 AM [place] [facility] No comment enter ed. Ordering Provid er: RAHEEL TRIPLETT Report Released Date/Time: Nov 03, 2021 11:25 AM Reporting Lab: [place] [facility] [place] [facility] [address] [facility] [address] Performing Lab: [place] [facility] [place] [facility] [address] [facility] [address] CHOLESTEROL 261 H 0-199 TRIGLYCERIDE 88 0-150 LDL calculated 202 H 0-129 CHOL/HDL 6.4 HDL CHOLESTEROL 41 40-60 Nov 03, 2021 [place] [facility] BASIC METABOLIC PANEL Specimen Type: SERUM 11:56 AM [place] [facility] (non-fasting) No comment enter ed. Ordering Provid er: RAHEEL TRIPLETT Report Released Date/Time: Nov 03, 2021 11:25 AM Reporting Lab: [facility] [place] [facility] [address] [facility] [address] Performing Lab: [facility] [place] [facility] [address] [facility] [address] UREA NITROGEN 13 7-25 GLUCOSE 103 H 65-100 SODIUM 135 135-145 POTASSIUM 4.4 3.5-5.0 CHLORIDE 101 100-110 CO2 23 20-30 CREATININE, Serum 0.98 0.50-1.40 eGFR (IDMS) 76 >60 Nov 03, 2021 11:56 [facility] LIVER FUNCTION Specimen Typ e: SERUM AM [place] [facility] No comment enter ed. Ordering Provid er: RAHEEL TRIPLETT Report Released Date/Time: Nov 03, 2021 11:25 AM Reporting Lab: [facility] [address] [facility] [address] Performing Lab: [facility] [address] [facility] [address] PROTEIN,TOTAL 6.9 6.0-8.3 ALBUMIN 3.2 L 3.5-5.0 ALKALINE PHOSPHATASE 45 40-150 AST 14 5-34 ALT 12 0-55 BILIRUBIN, TOTAL 0.5 0.2-1.2 Nov 03, 2021 11:56 AM [facility] Specimen Type: BLOOD [facility] No comment enter ed. Ordering Provid er: RAHEEL TRIPLETT Report Released Date/Time: Nov 03, 2021 11:25 AM Reporting Lab: [facility] [address] [facility] [address] Performing Lab: [address] [address] WBC 12.33 H 4.50-11.00 RBC 4.37 4.23-5.66 HGB 13.3 12.8-17 HCT 40.8 39.2-50.4 MCV 93.4 82-99 MCHC 32.6 30.8-35.1 PLT 337 140-360 RDW-CV 13.6 12.0-16.0 MCH 30.4 26.2-32.6 Social History: Smoking Status (Most current) and Tobacco Use (All prior to encounter date) This section includes the most current, and the historical, smoking and tobacco-related health factors from the [place] facility where the Encounter took place.Current Smoking Status This section includes the most current smoking, or tobacco-related health factor, from the [place] facility where the Encounter took place. Date/Time Current Smoking Status Comment Facility March 24, 2021 10:00 AM VA-TOBACCO USER SOME DAYS [facility] Tobacco Use History This section includes a history of the smoking, or tobacco- related health factors, that were collected on or before the date of the Encounter. The data comes from the [place] facility where the Encounter took place. 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 [facility] [place] [facility] March 24, 2021 10:00 AM VA-TOBACCO USE MED NO VA C [facility] [place] [facility] March 24, 2021 10:00 AM VA-TOBACCO USER SOME DAYS [facility] [place] [facility] Dec 20, 2019 11:46 AM VA-TOBACCO USE 5 TO 15 YEARS [facility] [place] [facility] Dec 20, 2019 11:46 AM VA-TOBACCO USE ADVICE [facility] [place] [facility] Dec 20, 2019 11:46 AM 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 [facility] [place] [facility] Dec 20, 2019 11:46 AM VA-TOBACCO USE MED NO VA C [facility] [place] [facility] Dec 20, 2019 11:46 AM VA-TOBACCO USE WI 30 MIN OF VA [facility] [place] [facility] Dec 20, 2019 11:46 AM VA-TOBACCO USER SOME DAYS [facility] [place] [facility] Dec 03, 2018 12:20 PM VA-TOBACCO USE 30 YEARS OR [facility] [place] [facility] Dec 03, 2018 12:20 PM VA-TOBACCO USE ADVICE [facility] [place] [facility] Dec 03, 2018 12:20 PM VA-TOBACCO USE 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 Date/Time Encounter Note(s) Provider Source Nov 08, 2021 08:53 AM AUDIOLOGY NOTE: BARBIE BELTRAN [place] [facility] LOCAL TITLE: AUDIOLOGY [facility] STANDARD TITLE: AUDIOLOGY NOTE DATE OF NOTE: NOV 08, 2021@08:53 ENTRY DATE: NOV 08, 2021@08:53:57 AUTHOR: BARBIE BELTRAN EXP COSIGNER: GOLDIE GOTTI URGENCY: STATUS: COMPLETED Fortuna was seen today, November 08, 2021 for he aring aid problems/maintenance. SENSORINEURAL HEARING LOSS, BILATERAL Hearing Aid(s): Rivera VILLANUEVA BTEs issued on 02/26/2019 requested: [X]Hearing aid maintenance Action Taken: [X]Cleaned and checked hearing aids [X]Replaced thin tubes [X]Replaced microphone covers [X]Replaced batteries Bilateral sound check was positive. Plan: [X]Fortuna to call tonie /prince/ BARBIE BELTRAN AUDIOLOGY HEALTH RENTAL AGENT Signed: 11/08/2021 13:52 /prince/ Wayne Sandoval CCC-A Oven Worker Cosigned: 11/08/2021 14:07
--- OUTSIDE RECORDS SUMMARY | 2022-10-01 09:15 | XMS_ITS | Encounter Summary ---
:1950 Author Organization [facility] rs Address [address] [place] [address] Support Name Relationship Address Phone JOSE OCAMPO Unavailable [address] [place] [address] JOSE OCAMPO Unavailable [address] [place] [address] Insurance Providers: All historical and current Section [...] Telephone Name to Policy Number [place] [employer] [place] Jan 16, [id number] [phone] PATIENT SUPPLEMEN HEARI 2013 10 [id number] ,RJ JOHNSON AND ELLEN [facility] MEDICARE MEDEX Jan 16, [id number] [phone] PATIENT MASS SUPPLEMEN HEARI 2013 10 [id number] ,RJ JOHNSON AND MEDICARE MEDICARE PART Jan 16, PART A [id number] PATIENT (WNR) (M) A 2013 EK 00 ,RJ MEDICARE MEDICARE PART Jan 16, PART B [id number] [phone] PATIENT (WNR) (M) B 2013 [id number] ,RJ MEDICARE MEDICARE PART Jan 16, PART B [id number] PATIENT (WNR) (M) B 2013 [id number] ,RJ MEDICARE MEDICARE PART Jan 16, PART A [id number] ANNETTE JENKINS PATIENT (WNR) (M) A 2013 [id number] ,RJ MEDICARE MEDICARE PART Jan 16, PART A [id number] [phone] ANNETTE JENKINS PATIENT (WNR) (M) A [id number] 00 ,RJ MEDICARE MEDICARE PART Jan 16, PART B [id number] [phone] ANNETTE JENKINS PATIENT (WNR) (M) B 2013 00 ,RJ Selected Encounter This section includes the information on record at [place] for the Encounter. Date/Time Encounter Type Encounter Description Reason Provider Source Oct 08, 2021 12:00 Outpatient Encounter EVENT (HISTORICAL) AM IHE Encounter Template Text not used by [place] Plan of Treatment: Future Appointments (+ 6 months) and Future Tests (+/- 45 days) The Plan of Treatment section includes future care activities for the patient from all [place] treatmentfacilities. This section includes future appointments and future orders which are active, pending orscheduled.Future Appointments This section includes appointments that were scheduled to occur 6 months from the date of the Encounter, up to a maximum of 20 appointments. The data comes from all [place] treatment facilities. Appointment Date/Time Appointment Type Appointment Facili ty Name Oct 24, 2021 01:00 PM [facility] Oct 26, 2021 08:30 AM [facility] Nov 03, 2021 11:00 AM [facility] [place] [facility] Nov 08, 2021 01:30 PM AMBULATORY - [facility]HAB [facility] Dec 21, 2021 10:00 AM [facility] Lab Results: +/- 30 days of the encounter This section includes the Chemistry and Hematology Lab Results on record with [place] for the patient. Radiology Reports and Pathology Reports are provided separately, in subsequent sections.Lab Results This section contains the Chemistry/Hematology Results that were resulted 30 days before or 30 daysafter the date of the Encounter. Date/Time Source Result Type Result - Unit Interpretation Reference Range Comment Nov 03, [facility]FT[facility] Specimen T ype: SERUM 11:56 AM [facility] No comment enter ed. Ordering Provid er: RAHEEL TRIPLETT Report Released Date/Time: Nov 03, 2021 11:25 AM Reporting Lab: [place] [facility] [facility] [address] [facility] [address] Performing Lab: [place] [facility] [facility] [address] [facility] [address] THYROID T4 FREE(FT4) 0.85 0.6-1.6 Nov 03, 2021 [place] [facility] PT & INR (PROTIME) Specimen Typ e: PLASMA 11:56 AM [place] [facility] No comment enter ed. Ordering Provid er: RAHEEL TRIPLETT Report Released Date/Time: Nov 03, 2021 11:25 AM Reporting Lab: [facility] [place] [facility] [address] [facility] [address] Performing Lab: [facility] [place] [facility] [address] [facility] [address] INR 1.4 PROTIME 15.2 H 10.0-13.1 Nov 03, 2021 [facility] HEMOGLOBIN A1C PANEL Specimen T ype: BLOOD 11:56 AM [place] [facility] Comment: Testin g performed by NGSP [...] Nov 03, 2021 11:25 AM Reporting Lab: [facility] [place] [facility] [address] [facility] [address] Performing Lab: [facility] [place] [facility] [address] [facility] [address] HEMOGLOBIN A1C 5.8 H 4.0-5.6 Nov 03, 2021 11:56 AM [facility] [place] TSH Specimen Type: SERUM [facility] No comment enter ed. Ordering Provid er: RAHEEL TRIPLETT Report Released Date/Time: Nov 03, 2021 11:25 AM Reporting Lab: [place] [facility] [facility] [address] [facility] [address] Performing Lab: [place] [facility] [place] [facility] [address] [facility] [address] TSH 2.98 0.35-5.00 Nov 03, 2021 [place] [facility] LIPID PANEL, NON Specimen Type: SERUM 11:56 AM [place] [facility] No comment enter ed. Ordering Provid er: RAHEEL TRIPLETT Report Released Date/Time: Nov 03, 2021 11:25 AM Reporting Lab: [place] [facility] [facility] [address] [facility] [address] Performing Lab: [place] [facility] [place] [facility] [address] [facility] [address] CHOLESTEROL 261 H 0-199 TRIGLYCERIDE 88 0-150 LDL calculated 202 H 0-129 CHOL/HDL 6.4 HDL CHOLESTEROL 41 40-60 Nov 03, 2021 [place] [facility] [place] BASIC METABOLIC PANEL Specimen Type: SERUM 11:56 AM [place] [facility] (non-fasting) No comment enter ed. Ordering Provid er: RAHEEL TRIPLETT Report Released Date/Time: Nov 03, 2021 11:25 AM Reporting Lab: [place] [facility] [facility] [address] [facility] [address] Performing Lab: [place] [facility] [facility] [address] [facility] [address] UREA NITROGEN 13 7-25 GLUCOSE 103 H 65-100 SODIUM 135 135-145 POTASSIUM 4.4 3.5-5.0 CHLORIDE 101 100-110 CO2 23 20-30 CREATININE, Serum 0.98 0.50-1.40 eGFR (IDMS) 76 >60 Nov 03, 2021 11:56 [place] [facility] LIVER FUNCTION Specimen Typ e: SERUM AM [place] [facility] No comment enter ed. Ordering Provid er: RAHEEL TRIPLETT Report Released Date/Time: Nov 03, 2021 11:25 AM Reporting Lab: [place] [facility] [facility] [address] [facility] [address] Performing Lab: [place] [facility] [facility] [address] [facility] [address] PROTEIN,TOTAL 6.9 6.0-8.3 ALBUMIN 3.2 L 3.5-5.0 ALKALINE PHOSPHATASE 45 40-150 AST 14 5-34 ALT 12 0-55 BILIRUBIN, TOTAL 0.5 0.2-1.2 Nov 03, 2021 11:56 AM [place] [facility] [place] CBC Specimen Type: BLOOD [facility] No comment enter ed. Ordering Provid er: RAHEEL TRIPLETT Report Released Date/Time: Nov 03, 2021 11:25 AM Reporting Lab: [place] [facility] [facility] [address] [facility] [address] Performing Lab: [place] CNTR [place] [facility] [address] [facility] [address] WBC 12.33 H 4.50-11.00 RBC 4.37 4.23-5.66 HGB 13.3 12.8-17 HCT 40.8 39.2-50.4 MCV 93.4 82-99 MCHC 32.6 30.8-35.1 PLT 337 140-360 RDW-CV 13.6 12.0-16.0 MCH 30.4 26.2-32.6 Social History: Smoking Status (Most current) and Tobacco Use (All prior to encounter date) This section includes the most current, and the historical, smoking and tobacco-related health factors from the [place] facility where the Encounter took place.Current Smoking Status This section includes the most current smoking, or tobacco-related health factor, from the [place] facility where the Encounter took place. Date/Time Current Smoking Status Comment Facility March 24, 2021 10:00 AM VA-TOBACCO USER SOME DAYS [place] [facility] [place] [facility] Tobacco Use History This section includes a history of the smoking, or tobacco- related health factors, that were collected on or before the date of the Encounter. The data comes from the [place] facility where the Encounter took place. Date/Time Smoking Status/Tobacco Use Comment 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 [facility] [place] [facility] March 24, 2021 10:00 AM VA-TOBACCO USE MED NO VA C [facility] [place] [facility] March 24, 2021 10:00 AM VA-TOBACCO USER SOME DAYS [place] [facility] [place] [facility] Dec 20, 2019 11:46 AM VA-TOBACCO USE 5 TO 15 YEARS [facility] [place] [facility] Dec 20, 2019 11:46 AM VA-TOBACCO USE ADVICE VA C [facility] [place] [facility] Dec 20, 2019 11:46 AM VA-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 USE 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 [facility] [place] [facility] Dec 20, 2019 11:46 AM VA-TOBACCO USE MED NO [facility] C [facility] [facility] Dec 20, 2019 11:46 AM VA-TOBACCO USE WI 30 MIN OF [facility] [place] [facility] Dec 20, 2019 11:46 AM VA-TOBACCO USER SOME DAYS [facility] [place] [facility] Dec 03, 2018 12:20 PM VA-TOBACCO USE 30 YEARS OR [facility] [place] [facility] Dec 03, 2018 12:20 PM VA-TOBACCO USE ADVICE VA C [facility] [place] [facility] Dec 03, 2018 12:20 PM VA-TOBACCO USE 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 Date/Time Encounter Note(s) Provider Source Oct 08, 2021 12:00 AM NONVA NOTE: [facility] LOCAL TITLE: NON-VA HOSPITALIZATIONS/ER [place] [facility] STANDARD TITLE: NONVA NOTE DATE OF NOTE: OCT 08, 2021 ENTRY DATE: NOV 14 021@13:53:39 AUTHOR: KARIN PANG COSIGNER: URGENCY: STATUS: COMPLETED VistA Imaging - Scanned Document SCANNED DOCUMENT SIGNATURE NOT REQUIRED Electronically Filed: 11/14/2021 by: LOVE PANG Special Librarian
--- OUTSIDE RECORDS SUMMARY | 2022-10-01 09:15 | XMS_ITS | Encounter Summary ---
:1950 Author Organization [facility] rs Address [address] [place] [address] Support Name Relationship Address Phone JOSE OCAMPO Unavailable [address] [place] [address] JOSE OCAMPO Unavailable [address] [place] [address] Insurance Providers: All historical and current Section Date Range: From patient's date of to the date document was created.This section includes the names of all active insurance providers for the patient. Insurance Type of Plan Start of End of Group Member Insurance Policy P atient's Provider Coverage Name Policy Policy Number ID Provider's Winters's Relationship Coverage Coverage Telephone Name to Policy Number Winters [facility] MEDICARE MEDEX Jan 16, [id number] [phone] PATIENT SUPPLEMEN HEARI 2014 10 [id number] ,RJ JOHNSON AND [facility] MEDICARE MEDEX Jan 16, [id number] [phone] PATIENT MASS SUPPLEMEN HEARI 2013 10 [id number] ,RJ JOHNSON AND MEDICARE MEDICARE PART Jan 16, PART A [id number] PATIENT (WNR) (M) A 2013 00 ,RJ MEDICARE MEDICARE PART Jan 16, PART B [id number] PATIENT (WNR) (M) B 2013 00 ,RJ MEDICARE MEDICARE PART Jan 16, PART A [id number] PATIENT (WNR) (M) A 2013 4 ,RJ MEDICARE MEDICARE PART Jan 16, PART B [id number] ANNETTE JENKINS PATIENT (WNR) (M) B 2013 [id number] ,RJ MEDICARE MEDICARE PART Jan 16, PART A [id number] ANNETTE JENKINS PATIENT (WNR) (M) A [id number] 00 ,RJ MEDICARE MEDICARE PART Jan 16, PART B [id number] ANNETTE JENKINS PATIENT (WNR) (M) B 2013 ,RJ Selected Encounter This section includes the information on record at [place] for the Encounter. Date/Time Encounter Type Encounter Description Reason Provider Source Dec 20, 2021 08:21 Outpatient Encounter PODIATRY AM IHE Encounter Template Text not used by [place] Plan of Treatment: Future Appointments (+ 6 months) and Future Tests (+/- 45 days) The Plan of Treatment section includes future care activities for the patient from [facility] [place] [facility] This section includes future appointments and future orders which are active, pending orscheduled.Future Appointments This section includes appointments that were scheduled to occur 6 months from the date of the Encounter, up to a maximum of 20 appointments. The data comes from all [place] treatment facilities. Appointment Date/Time Appointment Type Appointment Facili ty Name Dec 21, 2021 10:00 AM AMBULATORY - MEDICINE [facility] Apr 23, 2022 09:00 AM AMBULATORY MEDIC[facility] May 23, 2022 10:00 AM AMBULATORY MEDIC[facility] Social History: Smoking Status (Most current) and Tobacco Use (All prior to encounter date) This section includes the most current, and the historical, smoking and tobacco-related health factors from the [place] facility where the Encounter took place.Current Smoking Status This section includes the most current smoking, or tobacco-related health factor, from the [place] facility where the Encounter took place. Date/Time Current Smoking Status Comment Facility March 24, 2021 10:00 AM VA-TOBACCO USER SOME DAYS [facility] Tobacco Use History This section includes a history of the smoking, or tobacco- related health factors, that were collected on or before the date of the Encounter. The data comes from the [place] facility where the Encounter took place. 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 NO [facility] [place] [facility] March 24, 2021 10:00 AM VA-TOBACCO USE MED NO [facility] [place] [facility] March 24, 2021 10:00 AM VA-TOBACCO USER SOME DAYS [facility] [place] [facility] Dec 20, 2019 11:46 AM VA-TOBACCO USE 5 TO 15 YEARS [facility] [place] [facility] Dec 20, 2019 11:46 AM VA-TOBACCO USE ADVICE [facility] [place] [facility] Dec 20, 2019 11:46 AM VA-TOBACCO USE MANUFACTURING ELECTRICIAN YES [facility] [place] [facility] Dec 20, 2019 11:46 AM VA-TOBACCO USE MED NO [facility] [place] [facility] Dec 20, 2019 11:46 AM VA-TOBACCO USE WI 30 MIN OF [facility] [place] [facility] Dec 20, 2019 11:46 AM VA-TOBACCO USER SOME DAYS [facility] [place] [facility] Dec 03, 2018 12:20 PM VA-TOBACCO USE 30 YEARS OR [facility] [place] [facility] Dec 03, 2018 12:20 PM VA-TOBACCO USE ADVICE [facility] [place] [facility] Dec 03, 2018 12:20 PM VA-TOBACCO USE MANUFACTURING ELECTRICIAN NO [facility] [place] [facility] Dec 03, 2018 12:20 PM VA-TOBACCO USE MED NO [facility] [place] [facility] Dec 03, 2018 12:20 PM VA-TOBACCO USE WI 30 MIN OF [facility] [place] [facility] Dec 03, 2018 12:20 PM VA-TOBACCO USER EVERY DAY [facility] [place] [facility] Encounter Notes: All associated encounter notes This section contains the clinical notes associated to the Encounter. Date/Time Encounter Note(s) Provider Source Dec 20, 2021 08:21 AM TELEPHONE ENCOUNTER NOTE: SANCHO SHORT [facility] LOCAL TITLE: TELEPHONE NOTE/SPECIALTY CLINIC [facility] TITLE: TELEPHONE ENCOUNTER NOTE DATE OF NOTE: DEC 20, 2021@08:21 ENTRY DATE: DEC 20, 2021@08:21:40 AUTHOR: SANCHO SHORT EXP COSIGNER: URGENCY: STATUS: COMPLETED Called pt to confirm podiatry appointment on 01/2022 at 10:00am. /prince/ SANCHO SHORT Signed: 12/20/2021 08:22
--- OUTSIDE RECORDS SUMMARY | 2022-10-01 09:15 | XMS_ITS ---
:1950 Author Organization [facility] rs Address [address] [place] [address] Support Name Relationship Address Phone JOSE OCAMPO Unavailable [address] [place] [address] JOSE OCAMPO Unavailable [address] [place] [address] Insurance Providers: All historical and current Section [...] Telephone Name to Policy Number Winters [place] Jan 16, [id number] [phone] PATIENT SUPPLEMEN HEARI 2014 10 [id number] ,RJ JOHNSON AND [facility] MEDICARE MEDEX Jan 16, [id number] [phone] PATIENT MASS SUPPLEMEN HEARI 2013 10 [id number] ,RJ JOHNSON AND MEDICARE MEDICARE PART Jan 16, PART A [id number] PATIENT (WNR) (M) A 2013 00 ,RJ MEDICARE MEDICARE PART Jan 16, PART B [id number] [phone] PATIENT (WNR) (M) B 2013 EK 00 ,RJ MEDICARE MEDICARE PART Jan 16, PART A [id number] PATIENT (WNR) (M) A 2013 4 ,RJ MEDICARE MEDICARE PART Jan 16, PART B [id number] ANNETTE JENKINS PATIENT (WNR) (M) B 2013 [id number] ,RJ MEDICARE MEDICARE PART Jan 16, PART A [id number] ANNETTE JENKINS PATIENT (WNR) (M) A 2013 73A 00 ,RJ MEDICARE MEDICARE PART Jan 16, PART B [id number] [phone] ANNETTE JENKINS PATIENT (WNR) (M) B 2013A 00 ,RJ Selected Encounter This section includes the information on record at [place] for the Encounter. Date/Time Encounter Type Encounter Description Reason Provider Source Oct 25, 2021 02:47 Outpatient Encounter PRIMARY CARE/MEDICINE PM IHE Encounter Template Text not used by [place] Plan of Treatment: Future Appointments (+ 6 months) and Future Tests (+/- 45 days) The Plan of Treatment section includes future care activities for the patient from all [place] treatmentfacilities. This section includes future appointments and future orders which are active, pending orscheduled.Future Appointments This section includes appointments that were scheduled to occur 6 months from the date of the Encounter, up to a maximum of 20 appointments. The data comes from all [place] treatment facilities. Appointment Date/Time Appointment Type Appointment Facili ty Name Oct 26, 2021 08:30 AM [facility] Nov 03, 2021 11:00 AM [facility] [place] [facility] Nov 08, 2021 01:30 PM AMBULATORY - [facility] Dec 21, 2021 10:00 [facility] [place] [facility] Apr 23, 2022 09:00 AM [facility] Lab Results: +/- 30 days of the encounter This section includes the Chemistry and Hematology Lab Results on record with [place] for the patient. Radiology Reports and Pathology Reports are provided separately, in subsequent sections.Lab Results This section contains the Chemistry/Hematology Results that were resulted 30 days before or 30 daysafter the date of the Encounter. Date/Time Source Result Type Result - Unit Interpretation Reference Range Comment Nov 03, 2021 [facility] T4 FREE(FT4) Specimen T ype: SERUM 11:56 AM [facility] No comment enter ed. Ordering Provid er: DAYO MLIAN Report Released Date/Time: Nov 03, 2021 11:25 AM Reporting Lab: [facility] [place] [facility] [address] [address] Performing Lab: [facility] [place] [facility] [address] [facility] [address] THYROID T4 FREE(FT4) 0.85 0.6-1.6 Nov 03, 2021 [facility] PT & INR (PROTIME) Specimen Typ e: PLASMA 11:56 AM [place] [facility] No comment enter ed. Ordering Provid er: DAYO MILAN Report Released Date/Time: Nov 03, 2021 11:25 AM Reporting Lab[facility] [place] [facility] [address] [address] Performing Lab: [facility] [place] [facility] [address] [address] INR 1.4 PROTIME 15.2 H 10.0-13.1 Nov 03, 2021 [facility] HEMOGLOBIN A1C PANEL Specimen T ype: BLOOD 11:56 AM [place] [facility] Comment: Testin g performed by NGSP certified Bruno Enzym[employer] with CV <2%. The Bruno HgA1C assay should not be used to diagnose or monitor diabetes in patients with altered red cell lifespan such a s homozygous hem oglobin variants, Hb SC, HbF>5% and hemolytic anemia. Heterozygous variants do not affect this assay, HbAS, HbAC, HbAD, HbAE, AbA2 Ordering Provid er: DAYO MILAN Report Released Date/Time: Nov 03, 2021 11:25 AM Reporting Lab[facility] [place] [facility] [address] [address] Performing Lab: [facility] [place] [facility] [address] [address] HEMOGLOBIN A1C 5.8 H 4.0-5.6 Nov 03, 2021 11:56 AM [facility] [place] TSH Specimen Type: SERUM [facility] No comment enter ed. Ordering Provid er: DAYO MILAN Report Released Date/Time: Nov 03, 2021 11:25 AM Reporting Lab: [facility] [place] [facility] [address] [address] Performing Lab: [facility] [place] [facility] [address] [address] TSH 2.98 0.35-5.00 Nov 03, 2021 [facility] LIPID PANEL, NON Specimen Type: SERUM 11:56 AM [place] [facility] No comment enter ed. Ordering Provid er: DAYO MILAN Report Released Date/Time: Nov 03, 2021 11:25 AM Reporting Lab: [facility] [place] [facility] [address] [address] Performing Lab: [facility] [place] [facility] [address] [address] CHOLESTEROL 261 H 0-199 TRIGLYCERIDE 88 0-150 LDL calculated 202 H 0-129 CHOL/HDL 6.4 HDL CHOLESTEROL 41 40-60 Nov 03, 2021 [facility] BASIC METABOLIC PANEL Specimen Type: SERUM 11:56 AM [place] [facility] (non-fasting) No comment enter ed. Ordering Provid er: DAYO MILAN Report Released Date/Time: Nov 03, 2021 11:25 AM Reporting Lab: [facility] [place] [facility] [address] [address] Performing Lab: [facility] [place] [facility] [address] [address] UREA NITROGEN 13 7-25 GLUCOSE 103 H 65-100 SODIUM 135 135-145 POTASSIUM 4.4 3.5-5.0 CHLORIDE 101 100-110 CO2 23 20-30 CREATININE, Serum 0.98 0.50-1.40 eGFR (IDMS) 76 >60 Nov 03, 2021 11:56 [facility] LIVER FUNCTION Specimen Typ e: SERUM AM [place] [facility] No comment enter ed. Ordering Provid er: DAYO MILAN Report Released Date/Time: Nov 03, 2021 11:25 AM Reporting Lab: [facility] [place] [facility] [address] [address] Performing Lab: [facility] [place] [facility] [address] [address] PROTEIN,TOTAL 6.9 6.0-8.3 ALBUMIN 3.2 L 3.5-5.0 ALKALINE PHOSPHATASE 45 40-150 AST 14 5-34 ALT 12 0-55 BILIRUBIN, TOTAL 0.5 0.2-1.2 Nov 03, 2021 11:56 AM [facility] [place] CBC Specimen Type: BLOOD [facility] No comment enter ed. Ordering Provid er: DAYO MILAN Report Released Date/Time: Nov 03, 2021 11:25 AM Reporting Lab: [facility] [place] [facility] [address] [address] Performing Lab: [facility] [place] [facility] [address] [address] WBC 12.33 H 4.50-11.00 RBC 4.37 4.23-5.66 HGB 13.3 12.8-17 HCT 40.8 39.2-50.4 MCV 93.4 82-99 MCHC 32.6 30.8-35.1 PLT 337 140-360 RDW-CV 13.6 12.0-16.0 MCH 30.4 26.2-32.6 Social History: Smoking Status (Most current) and Tobacco Use (All prior to encounter date) This section includes the most current, and the historical, smoking and tobacco-related health factors from the [place] facility where the Encounter took place.Current Smoking Status This section includes the most current smoking, or tobacco-related health factor, from the [place] facility where the Encounter took place. Date/Time Current Smoking Status Comment Facility March 24, 2021 10:00 AM VA-TOBACCO USER SOME DAYS [facility] [place] [facility] Tobacco Use History This section includes a history of the smoking, or tobacco- related health factors, that were collected on or before the date of the Encounter. The data comes from the [place] facility where the Encounter took place. Date/Time Smoking Status/Tobacco Use Comment [facility] March 24, 2021 10:00 AM VA-TOBACCO USE 30 YEARS OR [facility] [place] [facility] March 24, 2021 10:00 AM VA-TOBACCO USE ADVICE [facility] [place] [facility] March 24, 2021 10:00 AM VA-TOBACCO USE DIRECTOR TOXICOLOGY NO [facility] [place] [facility] March 24, 2021 10:00 AM VA-TOBACCO USE MED NO [facility] [place] [facility] March 24, 2021 10:00 AM VA-TOBACCO USER SOME DAYS [facility] [place] [facility] Dec 20, 2019 11:46 AM VA-TOBACCO USE 5 TO 15 YEARS [facility] [place] [facility] Dec 20, 2019 11:46 AM VA-TOBACCO USE ADVICE [facility] [place] [facility] Dec 20, 2019 11:46 AM VA-TOBACCO USE DIRECTOR TOXICOLOGY YES [facility] [place] [facility] Dec 20, 2019 11:46 AM VA-TOBACCO USE MED NO [facility] [place] [facility] Dec 20, 2019 11:46 AM VA-TOBACCO USE WI 30 MIN OF [facility] [place] [facility] Dec 20, 2019 11:46 AM VA-TOBACCO USER SOME DAYS [facility] [place] [facility] Dec 03, 2018 12:20 PM VA-TOBACCO USE 30 YEARS OR [facility] [place] [facility] Dec 03, 2018 12:20 PM VA-TOBACCO USE ADVICE [facility] [place] [facility] Dec 03, 2018 12:20 PM VA-TOBACCO USE DIRECTOR TOXICOLOGY NO [facility] [place] [facility] Dec 03, 2018 12:20 PM VA-TOBACCO USE MED NO [facility] [place] [facility] Dec 03, 2018 12:20 PM VA-TOBACCO USE WI 30 MIN OF [facility] [place] [facility] Dec 03, 2018 12:20 PM VA-TOBACCO USER EVERY DAY [facility] [place] [facility] Encounter Notes: All associated encounter notes This section contains the clinical notes associated to the Encounter. Date/Time Encounter Note(s) Provider Source Oct 25, 2021 02:47 PM NONVA NOTE: ALYSSIA DOWNEY [facility] LOCAL TITLE: NON-VA MEDICAL RECORD SUMMARY [facility] STAND[facility] TITLE: NONVA NOTE DATE OF NOTE: OCT 25, 2021@14:47 ENTRY DATE: OCT 25, 2021@14:47:27 AUTHOR: ALYSSIA DOWNEY MAR EXP COSIGNER: URGENCY: STATUS: COMPLETED [facility] D/C SUMMARY DATE 10/08/21 DX : COVID PNEUMONIA Hospital course:acute hypoxic respiratory failur e secondary to COPD exacerbation,sepsis, pneumonia-started o n nebs, steroids, antibiotic, over the hospital course patient also developed hemoptysis so his Eliquis was put on hold for few days subsequently hemoptysis resolved an d copd treated with nebs steroids and also switched to p.a. antibiotics. Eliquis started yesterday no more hemoptysis. Aspirin still on hold make star t next week if no more hemoptysis. Patient shortness of breath seems slightly tiffany r but Desats into 74's with walking, needs 6 L oxygen at rest to maintain sa turation around 90s. patient decided to leave against the medical adv ice-Risk of leaving against medical advise discussed in detail with him and his and son- including hypoxia and -patient -both understa nds ,still wants to leave. respiratory arranged home oxygen , also advised him to stay resting and if shortness of breath worsen or desaturate-should come back to nearest emergency immediately. Above was discussed with pulmonary also:COPD sta rted on albuterol and anoro . also going home with p.o. steroid, repiratory ar ranging home oxygen . Psych also saw the patient-seems patient understand about it disease in detail understand about with decisions and risks. Patient and component of aspiration pneumonitis- seen by speech and Swallow- currently on chopped/ advanced diet( N DD3). Follow-up outpatient with PCP and Pulmonary. In addition discussed with patient and family th at patient has advanced lung disease and risk of frequent aspirations also-goal of care discussion needs to be done outpatiently since patient wants to talk to his PCP about it. Please repeat chest imaging study in 3-4 weeks t alexa to see resolution of pneumonia. /prince/ ALYSSIA DOWNEY, RN MSN REGISTERED NURSE Signed: 10/25/2021 14:54 Receipt Acknowledged By: 10/25/2021 14:57 /prince/ Dayo Milan DNP, FN P-BC, CNL Primary Care Nurse Practitioner
--- OUTSIDE RECORDS SUMMARY | 2022-10-01 09:15 | XMS_ITS | Encounter Summary ---
:1950 Author Organization [facility] rs Address [address] [place] [id number] Support Name Relationship Address Phone BILL OCAMPO Unavailable [address] [place] [address] BILL OCAMPO Unavailable [address] [place] [address] Insurance Providers: All historical and current Section [...] to Policy Number [facility] MEDIC[facility] MEDEX Jan 16, [id number] [phone] PATIENT SUPPLEMEN HEARI 2013 10 [id number] ,[facility] MEDICARE MEDEX Jan 16, [id number] [phone] PATIENT MASS SUPPLEMEN HEARI 2013 10 [id number] ,[facility]J [facility] AND MEDICARE MEDICARE PART Jan 16, PART A [id number] PATIENT (WNR) (M) A 2013 00 ,RJ MEDICARE MEDICARE PART Jan 16, PART B [id number] PATIENT (WNR) (M) B 2013 EK 00 ,RJ MEDICARE MEDICARE PART Jan 16, PART A [id number] PATIENT (WNR) (M) A 2013 4 ,RJ MEDICARE MEDICARE PART Jan 16, PART B [id number] ANNETTE JENKINS PATIENT (WNR) (M) B 2013 [id number] ,RJ MEDICARE MEDICARE PART Jan 16, PART A [id number] ANNETTE JENKINS PATIENT (WNR) (M) A 2013 [id number] ,RJ MEDICARE MEDICARE PART Jan 16, PART B [id number] ANNETTE JENKINS PATIENT (WNR) (M) B 2013 00 ,RJ Selected Encounter This section includes the information on record at DC for the Encounter. Date/Time Encounter Type Encounter Description Reason Provider Source Oct 11, 2021 02:12 Outpatient Encounter TELEPHONE TRIAGE PM IHE Encounter Template Text not used by DC Plan of Treatment: Future Appointments (+ 6 months) and Future Tests (+/- 45 days) The Plan of Treatment section includes future care activities for the patient from all DC treatmentfacilities. This section includes future appointments and future orders which are active, pending orscheduled.Future Appointments This section includes appointments that were scheduled to occur 6 months from the date of the Encounter, up to a maximum of 20 appointments. The data comes from all DC treatment facilities. Appointment Date/Time Appointment Type Appointment Facili ty Name Oct 24, 2021 01:00 [facility] Oct 26, 2021 08:30 [facility] Nov 03, 2021 11:00 AM [facility] Nov 08, 2021 01:30 PM AMBULATORY - REHAB MEDICINE [facility] W [facility]N [facility] Dec 21, 2021 10:00 [facility] Lab Results: +/- 30 days of the encounter This section includes the Chemistry and Hematology Lab Results on record with DC for the patient. Radiology Reports and Pathology Reports are provided separately, in subsequent sections.Lab Results This section contains the Chemistry/Hematology Results that were resulted 30 days before or 30 daysafter the date of the Encounter. Date/Time Source Result Type Result - Unit Interpretation Reference Range Comment Nov 03, 2021 [facility]FT4) Specimen T ype: SERUM 11:56 AM [facility] No comment enter ed. Ordering Provid er: RAHEEL TRIPLETT Report Released Date/Time: Nov 03, 2021 11:25 AM Reporting Lab: [facility] [place] [facility] [address] [facility] [address] Performing Lab: [facility] [place] [facility] [address] [facility] [address] THYROID T4 FREE(FT4) 0.85 0.6-1.6 Nov 03, 2021 [facility] PT & INR (PROTIME) Specimen Typ e: PLASMA 11:56 AM [place] [facility] No comment enter ed. Ordering Provid er: RAHEEL TRIPLETT Report Released Date/Time: Nov 03, 2021 11:25 AM Reporting Lab: [facility] [place] [facility] [address] [facility] [address] [facility] [place] [facility] [address] [facility] [address] INR 1.4 PROTIME 15.2 H 10.0-13.1 Nov 03, 2021 [facility] HEMOGLOBIN A1C PANEL Specimen T ype: BLOOD 11:56 AM [place] [facility] Comment: Testin g performed by NGSP [...] [facility] [place] [facility] [address] [facility] [address] Performing Lab: [facility] [place] [facility] [address] [facility] [address] HEMOGLOBIN A1C 5.8 H 4.0-5.6 Nov 03, 2021 11:56 AM [facility] [place] TSH Specimen Type: SERUM [facility] No comment enter ed. Ordering Provid er: RAHEEL TRIPLETT Report Released Date/Time: Nov 03, 2021 11:25 AM Reporting Lab: [facility] [place] [facility] [address] [facility] [address] Performing Lab: [facility] [place] [facility] [address] [facility] [address] TSH 2.98 0.35-5.00 Nov 03, 2021 [facility] LIPID PANEL, NON Specimen Type: SERUM 11:56 AM [place] [facility] No comment enter ed. Ordering Provid er: RAHEEL TRIPLETT Report Released Date/Time: Nov 03, 2021 11:25 AM Reporting Lab: [facility] [place] [facility] [address] [facility] [address] Performing [facility] [place] [facility] [address] [facility] [address] CHOLESTEROL 261 H 0-199 TRIGLYCERIDE 88 0-150 LDL calculated 202 H 0-129 CHOL/HDL 6.4 HDL CHOLESTEROL 41 40-60 Nov 03, 2021 [facility] BASIC METABOLIC PANEL Specimen Type: SERUM 11:56 AM [place] [facility] (non-fasting) No comment enter ed. Ordering Provid er: RAHEEL TRIPLETT Report Released Date/Time: Nov 03, 2021 11:25 AM Reporting Lab[facility] [place] [facility] [address] [facility] [address] Performing Lab: [facility] [place] [facility] [address] [facility] [address] UREA NITROGEN 13 7-25 GLUCOSE 103 H 65-100 SODIUM 135 135-145 POTASSIUM 4.4 3.5-5.0 CHLORIDE 101 100-110 CO2 23 20-30 CREATININE, Serum 0.98 0.50-1.40 eGFR (IDMS) 76 >60 Nov 03, 2021 11:56 [facility] LIVER FUNCTION Specimen Typ e: SERUM AM [place] [facility] No comment enter ed. Ordering Provid er: RAHEEL TRIPLETT Report Released Date/Time: Nov 03, 2021 11:25 AM Reporting Lab: [facility] [place] [facility] [address] [facility] [address] Performing Lab: [facility] [place] [facility] [address] [facility] [address] PROTEIN,TOTAL 6.9 6.0-8.3 ALBUMIN 3.2 L 3.5-5.0 ALKALINE PHOSPHATASE 45 40-150 AST 14 5-34 ALT 12 0-55 BILIRUBIN, TOTAL 0.5 0.2-1.2 Nov 03, 2021 11:56 AM [facility] [place] CBC Specimen Type: BLOOD [facility] No comment enter ed. Ordering Provid er: RAHEEL TRIPLETT Report Released Date/Time: Nov 03, 2021 11:25 AM Reporting Lab: [facility] [place] [facility] [address] [facility] [address] Performing Lab: [facility]TR [facility] [place] [facility] [address] [facility] [address] WBC 12.33 H 4.50-11.00 RBC 4.37 4.23-5.66 HGB 13.3 12.8-17 HCT 40.8 39.2-50.4 MCV 93.4 82-99 MCHC 32.6 30.8-35.1 PLT 337 140-360 RDW-CV 13.6 12.0-16.0 MCH 30.4 26.2-32.6 Social History: Smoking Status (Most current) and Tobacco Use (All prior to encounter date) This section includes the most current, and the historical, smoking and tobacco-related health factors from the DC facility where the Encounter took place.Current Smoking Status This section includes the most current smoking, or tobacco-related health factor, from the DC facility where the Encounter took place. Date/Time Current Smoking Status Comment Facility March 24, 2021 10:00 AM VA-TOBACCO USER SOME DAYS DC [facility] [place] [facility] Tobacco Use History This section includes a history of the smoking, or tobacco- related health factors, that were collected on or before the date of the Encounter. The data comes from the DC facility where the Encounter took place. 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 [facility] [place] [facility] March 24, 2021 10:00 AM VA-TOBACCO USE MED NO [facility] [place] [facility] March 24, 2021 10:00 AM VA-TOBACCO USER SOME DAYS [facility] [place] [facility] Dec 20, 2019 11:46 AM VA-TOBACCO USE 5 TO 15 YEARS [facility] [place] [facility] Dec 20, 2019 11:46 AM VA-TOBACCO USE ADVICE [facility] [place] [facility] Dec 20, 2019 11:46 AM VA-TOBACCO USE 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 YES [facility] [place] [facility] Dec 20, 2019 11:46 AM VA-TOBACCO USE MED NO [facility] [place] [facility] Dec 20, 2019 11:46 AM VA-TOBACCO USE WI 30 MIN OF [facility] [place] [facility] Dec 20, 2019 11:46 AM VA-TOBACCO USER SOME DAYS [facility] [place] [facility] Dec 03, 2018 12:20 PM VA-TOBACCO USE 30 YEARS OR [facility] [place] [facility] Dec 03, 2018 12:20 PM VA-TOBACCO USE ADVICE VA C [facility] [place] [facility] Dec 03, 2018 12:20 PM 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 Date/Time Encounter Note(s) Provider Source Oct 11, 2021 02:12 PM TELEPHONE ENCOUNTER NOTE: MT MORSE [facility] LOCAL TITLE: VISN 1 CCC ACTION REQUIRED [place] [facility] STANDARD TITLE: TELEPHONE ENCOUNTER NOTE DATE OF NOTE: OCT 11, 2021@14:12:20 ENTRY DATE: OCT 11, 2021@14:16:10 AUTHOR: MT MORSE EXP COSIGNER: URGENCY: STATUS: COMPLETED VISN 1 CCC ACTION REQUIRED Has ADDENDA SPOUSE called in for RJ OCAMPO ([phone]) . The following identifiers were used to verify th is patient: DOB. NEIL. Contact Type of call: PHARMACY. Caller Response: ADM CALL RESOLVED Caller Area: [place] [facility] Provider Info: [facility] ([phone]) PACT: NO PACT 7 (Focus: Primary Care Only) Primary Care Provider: Raheel Triplett PH ONE:[phone] Transit Department Clerk: Yessica Downey PHONE :[phone] Clinical Associate: Reji Samuel PHONE:[phone] Cage Clerk: Shahnaz Savage PHONE:[phone] PACT Clinical Pharmacist: Kira Maria PHONE:[phone] Clinical POC: Transit Department Clerk Yessica Downey PHONE:[phone] Administrative POC: Cage Clerk Shahnaz Savage PHONE:[phone] Author: MT MORSE Comments: Bill called to report that the darlene sawant was discharged from [facility] on 10/07. She has questions to have '[facility]Anoro Elipta[facility] Bill also stated that i s requesting portable oxygen. She is requesting a call back at [phone]. N o communication authorization on file information only taken. Evaluation/Management Code: HC PRO PHONE CALL 5- 10 MIN ([phone]). Starting at: 10/11/2021 @ 2:12:20 PM Ending at: 10/11/2021 @ 2:14:48 PM Length: 2 minutes. Chief Complaint: Not applicable to call. Class Code: Other specified counseling. Patient's Email Address: [email or web address] /prince/ MT MORSE Advanced Drupal Architect Signed: 10/11/2021 14:16 Receipt Acknowledged By: 10/11/2021 14:18 /es/ YESSICA DOWNEY RN MSN REGISTERED NURSE * AWAITING SIGNATURE * REJI SAMUEL 10/11/2021 ADDENDUM STATUS: COMPLETED [place] to PCP /prince/ YESSICA DOWNEY RN MSN REGISTERED NURSE Signed: 10/11/2021 14:17 Receipt Acknowledged By: 10/16/2021 07:42 /prince/ Raheel Triplett DNP, CHRISTA GEORGE, AZRA Primary Care Nurse Practitioner 10/11/2021 ADDENDUM STATUS: COMPLETED attempted to reach spouse LM to return call /prince/ YESSICA DOWNEY RN MSN REGISTERED NURSE Signed: 10/11/2021 14:18 10/16/2021 ADDENDUM STATUS: COMPLETED PACT RN - Please let know, medication is non form so will not be able to order it at this point. I suggest a pulmonology consult from which the pulmonoloist can order medic ation from DC. Also, once i have dc summary, we can place consult to [facility] for oxygen. PACT HT - please request DC summary [facility]. thank you /prince/ Raheel Triplett DNP, ENOC, AZRA Primary Care Nurse Practitioner Signed: 10/16/2021 07:45 Receipt Acknowledged By: 10/16/2021 08:48 /prince/ [facility],PRIMARY CARE 10/16/2021 10:05 /prince/ YESSICA DOWNEY RN MSN REGISTERED NURSE 10/16/2021 ADDENDUM STATUS: COMPLETED spoke with and by phone advised that he sould be followed by Pulmonology He was seen in hospital by Backup Administrative Coordinator would like CC Consult for Pulmonology HM C adivsed his RX can be faxed to pharm from Pulm o ffice will schedule follow up appt with Pulm Please schedule follow up post hospital visit wi th PCP /prince/ YESSICA DOWNEY RN MSN REGISTERED NURSE Signed: 10/16/2021 09:51 Receipt Acknowledged By: 10/16/2021 10:18 /prince/ SHAHNAZ SAVAGE ADVANCED MSA 10/16/2021 10:01 /prince/ Raheel Triplett DNP, CRHISTA GEORGE, CNL Primary Care Nurse Practitioner 10/16/2021 ADDENDUM STATUS: COMPLETED AMSA spoke with [facility] and spouse, tasha jorgensen authorized - [facility] is scheduled for 10/26/21 at 8:30am. /prince/ SHAHNAZ SAVAGE ADVANCED MSA Signed: 10/16/2021 10:20
--- OUTSIDE RECORDS SUMMARY | 2022-10-01 09:15 | XMS_ITS | Encounter Summary ---
:1950 Author Organization [facility] rs Address [address] [place] [address] Support Name Relationship Address Phone JOSE OCAMPO Unavailable [address] [place] [address] JOSE OCAMPO Unavailable [address] [place] [address] Insurance Providers: All historical and current Section [...] [place] MED[place] MED[place] Jan 16, [id number] [phone] PAT[address] SUPPLEMEN HEARI 2013 10 [id number] ,[facility] MEDIC[facility] MEDEX Jan 16, [id number] [phone] PATIENT MASS SUPPLEMEN HEARI 2013 10 [id number] ,RJ [facility] MEDICARE MEDICARE PART Jan 16, PART A [id number] PATIENT (WNR) (M) A 2013 00 ,RJ MEDICARE MEDICARE PART Jan 16, PART B [id number] [phone] PATIENT (WNR) (M) B 2013 00 ,RJ MEDICARE MEDICARE PART Jan 16, PART A [id number] [id number] PATIENT (WNR) (M) A 2013 4 ,RJ MEDICARE MEDICARE PART Jan 16, PART B [id number] PATIENT (WNR) (M) B 2013 [id number] ,RJ MEDICARE MEDICARE PART Jan 16, PART A [id number] [phone] PATIENT (WNR) (M) A [id number] 00 ,RJ MEDICARE MEDICARE PART Jan 16, PART B [id number] [phone] PATIENT (WNR) (M) B 2013 ,RJ Selected Encounter This section includes the information on record at [facility] for the Encounter. Date/Time Encounter Type Encounter Reason Provider Source Description Oct 26, 2021 OFFICE O/P EST PRIMARY ICD-10-CM J44.9 LISA GRAY 08:30 AM MINIMAL PROB CARE/MEDICINE Chronic P obstructive pulmonary disease, unspecified with Provider Comments: COPD - Chronic Obstructive Pulmonary Disease ([facility] [id number]) IHE Encounter Template Text not used by [facility] Assessments - Encounter Diagnoses This section includes the primary and secondary diagnoses documented for the Encounter. Date/Time Primary/Secondary Diagnosis Name Provider Source Diagnosis Oct 26, 2021 PRIMARY Chronic [facility] obstructive [facility] [place] [facility] pulmonary disease, unspecified Oct 26, 2021 SECONDARY Encounter for LISA GRAY [facility] N 09:48 AM immunization P [place] [facility] Plan of Treatment: Future Appointments (+ 6 months) and Future Tests (+/- 45 days) The Plan of Treatment section includes future care activities for the patient from all [facility] treatmentfacilities. This section includes future appointments and future orders which are active, pending orscheduled.Future Appointments This section includes appointments that were scheduled to occur 6 months from the date of the Encounter, up to a maximum of 20 appointments. The data comes from all [facility] treatment facilities. Appointment Date/Time Appointment Type Appointment Facili ty Name Nov 03, 2021 11:00 AM AMBULATORY - MEDICINE [facility] [place] [facility] Nov 08, 2021 01:30 PM AMBULATORY - REHAB MEDICINE [facility] [place] [facility] Dec 21, 2021 10:00 AM AMBULATORY - MEDICINE [facility] [place] [facility] Apr 23, 2022 09:00 AM AMBULATORY - MEDICINE [facility] [place] [facility] Lab Results: +/- 30 days of the encounter This section includes the Chemistry and Hematology Lab Results on record with [facility] for the patient. Radiology Reports and Pathology [...] Nov 03, 2021 11:25 AM Reporting Lab: [facility] [place] [facility] [address] [facility] [address] Performing Lab: [facility] [place] [facility] [address] [facility] [address] THYROID T4 FREE(FT4) 0.85 0.6-1.6 Nov 03, 2021 [facility] PT & INR (PROTIME) Specimen Typ e: PLASMA 11:56 AM [place] [facility] No comment enter ed. Ordering Provid er: RAHEEL MILAN Report Released Date/Time: Nov 03, 2021 11:25 AM Reporting Lab: [facility] [place] [facility] [address] [facility] [address] Performing Lab: [facility] [place] [facility] [address] [facility] [address] INR 1.4 PROTIME 15.2 H 10.0-13.1 Nov 03, 2021 11:56 AM [facility] [place] T[facility] Specimen Type: [facility]UM [facility] No comment enter ed. Ordering Provid er: RAHEEL MILAN Report Released Date/Time: Nov 03, 2021 11:25 AM Reporting Lab: [facility] [place] [facility] [address] [facility] [address] Performing Lab: [facility] [place] [facility] [address] [facility] [address] TSH 2.98 0.35-5.00 Nov 03, 2021 VA [...] Nov 03, 2021 11:25 AM Reporting Lab: [facility] [address] [facility] [address] Performing Lab: [facility] [address] [facility] [address] HEMOGLOBIN A1C 5.8 H 4.0-5.6 Nov 03, 2021 [facility] LIPID PANEL, NON Specimen Type: SERUM 11:56 AM [facility] FAST[facility] No comment enter ed. Ordering Provid er: RAHEEL MILAN Report Released Date/Time: Nov 03, 2021 11:25 AM Reporting Lab: [facility] [address] [facility] [address] Performing Lab: [facility] [address] [facility] [address] CHOLESTEROL 261 H 0-199 TRIGLYCERIDE 88 0-150 LDL calculated 202 H 0-129 CHOL/HDL 6.4 HDL CHOLESTEROL 41 40-60 Nov 03, 2021 11:56 [facility] LIVER FUNCTION Specimen Typ e: SERUM AM [facility] No comment enter ed. Ordering Provid er: RAHEEL MILAN Report Released Date/Time: Nov 03, 2021 11:25 AM Reporting Lab: [facility] [address] [facility] [address] Performing Lab: [facility] [address] [facility] [address] PROTEIN,TOTAL 6.9 6.0-8.3 ALBUMIN 3.2 L 3.5-5.0 ALKALINE PHOSPHATASE 45 40-150 AST 14 5-34 ALT 12 0-55 BILIRUBIN, TOTAL 0.5 0.2-1.2 Nov 03, 2021 [facility] BASIC METABOLIC PANEL Specimen Type: SERUM 11:56 AM [place] [facility] (non-fasting) No comment enter ed. Ordering Provid er: RAHEEL MILAN Report Released Date/Time: Nov 03, 2021 11:25 AM Reporting Lab: [facility] [place] [facility] [address] [facility] [address] Performing Lab: [facility] [place] [facility] [address] [facility] [address] UREA NITROGEN 13 7-25 GLUCOSE 103 H 65-100 SODIUM 135 135-145 POTASSIUM 4.4 3.5-5.0 CHLORIDE 101 100-110 CO2 23 20-30 CREATININE, Serum 0.98 0.50-1.40 eGFR (IDMS) 76 >60 Nov 03, 2021 11:56 AM [facility] [place] CBC Specimen Type: BLOOD HCS No comment enter ed. Ordering Provid er: RAHEEL MILAN Report Released Date/Time: Nov 03, 2021 11:25 AM Reporting Lab: [facility] [place] [facility] [address] [facility] [address] Performing Lab: [facility] [place] [facility] [address] [facility] [address] WBC 12.33 H 4.50-11.00 RBC 4.37 4.23-5.66 HGB 13.3 12.8-17 HCT 40.8 39.2-50.4 MCV 93.4 82-99 MCHC 32.6 30.8-35.1 PLT 337 140-360 RDW-CV 13.6 12.0-16.0 MCH 30.4 26.2-32.6 Immunizations: All administered on the encounter date This section contains immunizations associated to the Encounter. Immunization Series Date Issued Reaction Comments COVID-19 (MODERNA), MRNA, 3 Oct 26, 2021 MO D; [id number]; 02/21/2022 LNP-S, PF, 100 MCG OR 50 MCG DOSE Social History: Smoking Status (Most current) and Tobacco Use (All prior to encounter date) This section includes the most current, and the historical, smoking and tobacco-related health factors from the [facility] facility where the Encounter took place.Current Smoking Status This section includes the most current smoking, or tobacco-related health factor, from the [facility] facility where the Encounter took place. Date/Time Current Smoking Status Comment Facility March 24, 2021 10:00 AM VA-TOBACCO DOESNT USE WI V A CNTRL WSTRN [place] 30 MIN [facility] Tobacco Use History This section includes a history of the smoking, or tobacco- related health factors, that were collected on or before the date of the Encounter. The data comes from the [facility] facility where the Encounter took place. 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[employer] ME[employer] NO [facility] [place] [facility] March 24, 2021 10:00 AM VA-TOBACCO USE MED NO VA C [facility]L [facility] [place] [facility] March 24, 2021 10:00 AM VA-TOBACCO USER SOME DAYS [facility] [place] [facility] Dec 20, 2019 11:46 AM VA-TOBACCO USE 5 TO 15 YEARS [facility] [place] [facility] Dec 20, 2019 11:46 AM VA-TOBACCO USE ADVICE VA C [facility]L [facility] [place] [facility] Dec 20, 2019 11:46 AM VA-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 USE 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 [facility] [place] [facility] Dec 20, 2019 11:46 AM VA-TOBACCO USE MED NO VA C [facility] [place] [facility] Dec 20, 2019 11:46 AM VA-TOBACCO USE WI 30 MIN OF VA [facility] [place] [facility] Dec 20, 2019 11:46 AM VA-TOBACCO USER SOME DAYS [facility] [place] [facility] Dec 03, 2018 12:20 PM VA-TOBACCO USE 30 YEARS OR [facility] [place] [facility] Dec 03, 2018 12:20 PM VA-TOBACCO USE ADVICE VA C [facility]TRL [facility] [place] [facility] Dec 03, 2018 12:20 PM VA-TOBACCO USE 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 Date/Time Encounter Note(s) Provider Source Oct 26, 2021 09:29 AM PREVENTIVE MEDICINE NURSING NOTE: VINNIE GRAY [facility] LOCAL TITLE: CLINICAL REMINDERS/NURSING [place] [facility] STANDARD TITLE: PREVENTIVE MEDICINE NURSING NOTE DATE OF NOTE: OCT 26, 2021@09:29 ENTRY DATE: OCT 26, 2021@09:29:34 AUTHOR: LISA GRAY EXP COSIGNER: URGENCY: STATUS: COMPLETED F: RN visit D/A: Vet presented late to clinic for his appt w edmar Milan so was seen by this card writer hand Appt rescheduled for 11/03 at 11 am He is s/p hospital stay for non- Covid PNA He is now on Oxygen 6 liters with ambulation, 4 liters at rest Vitals today 100/68 70 Sao2 96% He has a pulse ox at home that he uses to titrat e O2 He was prescribed Anoro initially in the hospita l but at his hospital follow up appt with Dr. 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 took hard copy RX to be filled He was also given a RX for a flutter valve (A fl utter valve is a handheld Oscillating Positive Expiratory Pressure (PEP) d evice that is used as a type breathing therapy. A flutter valve helps to tricia r mucus from your lungs as well as make) Emailed to RT Consult placed for RT as well COVID-19 Immunization: The patient was given the EUA fact sheet for th is vaccine which lists the benefits and side effects of the vaccine and [facility] the risks of the vaccine. The fact sheet was reviewed with the p atient and they were given an opportunity to ask questions. The patient de nied any prior severe reaction to this vaccine or its components or a severe allergic reaction such as anaphylaxis to any vaccine or to any in jectable therapy. The patient gave verbal consent to receive the vacc ine. Booster Dose (half-dose): The patient received Moderna COVID-19 Vaccine 0 .25 ml IM. Series: Series 3 MVX (Manuf); Lot#; Exp Date: MOD; [id number]; 04/2022 Administration Anatomic site: Left Deltoid Vaccine administered without complications. The patient was advised to remain in the facility for 15 minute s post vaccination. The patient was given a completed COVID-19 vacc ination record card, a copy of the [facility] Side Effects and Adverse Event s Reporting Fact Sheet and instructed on how to report any adver se reactions. /prince/ Lisa Gray RN, BSN PACT TEAM RN Signed: 10/26/2021 09:48 Receipt Acknowledged By: * AWAITING SIGNATURE * ALYSSIA DOWNEY * AWAITING SIGNATURE * RAHEEL MILAN
--- OUTSIDE RECORDS SUMMARY | 2022-10-01 09:15 | XMS_ITS | Encounter Summary ---
:1950 Author Organization [facility] rs Address [address] [place] [address] Support Name Relationship Address Phone JOSE OCAMPO Unavailable [address] [place] [address] JOSE OCAMPO Unavailable [address] [place] [address] Insurance Providers: All historical and current Section Date Range: From patient's date of to the date document was created.This section includes the names of all active insurance providers for the patient. Insurance Type of Plan Start of End of Group Member Insurance Policy P atient's Provider Coverage Name Policy Policy Number ID Provider's Winters's Relationship Coverage Coverage Telephone Name to Policy Number Winters [facility] MEDICARE MEDEX Jan 16, [id number] [phone] PATIENT SUPPLEMEN HEARI 2014 10 [id number] ,RJ [facility] MEDICARE MEDEX Jan 16, [id number] [phone] PATIENT MASS SUPPLEMEN HEARI 2013 10 [id number] ,RJ JOHNSON AND MEDICARE MEDICARE PART Jan 16, PART A [id number] PATIENT (WNR) (M) A 2013 00 ,RJ MEDICARE MEDICARE PART Jan 16, PART B [id number] [phone] PATIENT (WNR) (M) B 2013 00 ,RJ MEDICARE MEDICARE PART Jan 16, PART A [id number] [id number] PATIENT (WNR) (M) A 2013 4 ,RJ MEDICARE MEDICARE PART Jan 16, PART B [id number] [id number] PATIENT (WNR) (M) B 2013 [id number] ,RJ MEDICARE MEDICARE PART Jan 16, PART A [id number] [phone] PATIENT (WNR) (M) A 2013 [id number] ,RJ MEDICARE MEDICARE PART Jan 16, PART B [id number] [phone] PATIENT (WNR) (M) B [id number] 00 ,RJ Selected Encounter This section includes the information on record at [facility] for the Encounter. Date/Time Encounter Type Encounter Reason Provider Source Description Oct 26, 2021 NON-ELEC TELEPHONE PRIMARY ICD-10-CM J44.9 Ed JESUS 01:03 PM OSCILLATORY PEP CARE Chronic ETSY DVC obstructive pulmonary disease, unspecified with Provider Comments: COPD - Chronic Obstructive Pulmonary Disease ([facility] [id number]) IHE Encounter Template Text not used by [facility] Assessments - Encounter Diagnoses This section includes the primary and secondary diagnoses documented for the Encounter. Date/Time Primary/Secondary Diagnosis Name Provider Source Diagnosis Oct 26, 2021 PRIMARY Chronic JEREMY JESUS [facility] WSTR N 01:03 PM obstructive [facility] disease, unspecified Plan of Treatment: Future [...] 03, 2021 11:00 AM AMBULATORY - MEDICINE [place] [facility] [place] [facility] Nov 08, 2021 01:30 PM AMBULATORY - REHAB MEDICINE [facility]N [place] [facility] Dec 21, 2021 10:00 AM AMBULATORY MEDICINE [place] [facility] [place] [facility] Apr 23, 2022 09:00 AM [facility] Lab Results: +/- 30 days of [...] Specimen T ype: SERUM 11:56 AM [place] [facility] No comment enter ed. Ordering Provid er: RAHEEL TRIPLETT Report Released Date/Time: Nov 03, 2021 11:25 AM Reporting Lab: [facility] [place] [facility] [address] [facility] [address] Performing Lab: [facility] [place] [facility] [address] [facility] [address] THYROID T4 FREE(FT4) 0.85 0.6-1.6 Nov 03, 2021 [facility] PT & INR (PROTIME) Specimen Typ e: PLASMA 11:56 AM [place] [facility] No comment enter ed. Ordering Provid er: RAHEEL TRIPLETT Report Released Date/Time: Nov 03, 2021 11:25 AM Reporting Lab: [facility] [place] [facility] [address] [facility] [address] Performing Lab: [facility] [place] [facility] [address] [facility] [address] INR 1.4 PROTIME 15.2 H 10.0-13.1 Nov 03, 2021 [facility] HEMOGLOBIN A1C PANEL Specimen T ype: BLOOD 11:56 AM [place] [facility] Comment: Testin g performed by NGSP [...] Nov 03, 2021 11:25 AM Reporting Lab: [facility] [place] [facility] [address] [facility] [address] Performing Lab: [facility] [place] [facility] [address] [facility] [address] HEMOGLOBIN A1C 5.8 H 4.0-5.6 Nov 03, 2021 11:56 AM [facility] [place] TSH Specimen Type: SERUM [facility] No comment enter ed. Ordering Provid er: RAHEEL TRIPLETT Report Released Date/Time: Nov 03, 2021 11:25 AM Reporting Lab: [facility] [place] [facility] [address] [facility] [address] Performing Lab: [facility] [place] [facility] [address] [facility] [address] TSH 2.98 0.35-5.00 Nov 03, 2021 [facility] BASIC METABOLIC PANEL Specimen Type: SERUM 11:56 AM [place] [facility] (non-fasting) No comment enter ed. Ordering Provid er: RAHEEL TRIPLETT Report Released Date/Time: Nov 03, 2021 11:25 AM Reporting Lab: [facility] [place] [facility] [address] [facility] [address] Performing Lab: [facility] [place] [facility] [address] [facility] [address] UREA NITROGEN 13 7-25 GLUCOSE 103 H 65-100 SODIUM 135 135-145 POTASSIUM 4.4 3.5-5.0 CHLORIDE 101 100-110 CO2 23 20-30 CREATININE, Serum 0.98 0.50-1.40 eGFR (IDMS) 76 >60 Nov 03, 2021 [facility] LIPID PANEL, NON Specimen Type: SERUM 11:56 AM [place] [facility] No comment enter ed. Ordering Provid er: RAHEEL TRIPLETT Report Released Date/Time: Nov 03, 2021 11:25 AM Reporting Lab: [facility] [place] [facility] [address] [facility] [address] Performing Lab: [facility] [place] [facility] [address] [facility] [address] CHOLESTEROL 261 H 0-199 TRIGLYCERIDE 88 0-150 LDL calculated 202 H 0-129 CHOL/HDL 6.4 HDL CHOLESTEROL 41 40-60 Nov 03, 2021 11:56 [facility] LIVER FUNCTION Specimen Typ e: SERUM AM [place] [facility] No comment enter ed. Ordering Provid er: RAHEEL TRIPLETT Report Released Date/Time: Nov 03, 2021 11:25 AM Reporting Lab: [facility] [address] [facility] [address] Performing Lab: [facility] [address] [facility] [address] PROTEIN,TOTAL 6.9 6.0-8.3 ALBUMIN 3.2 L 3.5-5.0 ALKALINE PHOSPHATASE 45 40-150 AST 14 5-34 ALT 12 0-55 BILIRUBIN, TOTAL 0.5 0.2-1.2 Nov 03, 2021 11:56 AM [facility] CBC Specimen Type: BLOOD [facility] No comment enter ed. Ordering Provid er: RAHEEL TRIPLETT Report Released Date/Time: Nov 03, 2021 11:25 AM Reporting Lab: [facility]TR[facility] [address] [facility] [address] Performing Lab: [facility]TR[facility] [address] [facility] [address] WBC 12.33 H 4.50-11.00 RBC 4.37 4.23-5.66 [...] 2021 10:00 AM VA-TOBACCO USER SOME DAYS [facility] Tobacco Use History This section includes a history of the smoking, or tobacco- related health factors, that were collected on or before the date of the Encounter. The data comes from the [place] facility where the Encounter took place. Date/Time Smoking Status/Tobacco Use Comment Facil ity March 24, 2021 10:00 AM VA-TOBACCO USE 30 YEARS OR [facility] [place] [facility] March 24, 2021 10:00 AM VA-TOBACCO USE ADVICE VA C [facility]L [facility] [place] [facility] March 24, 2021 10:00 AM VA-TOBACCO USE PER DIEM CLERK NO [facility] [place] [facility] March 24, 2021 10:00 AM VA-TOBACCO USE MED NO VA C [facility]L [facility] [place] [facility] March 24, 2021 10:00 AM VA-TOBACCO USER SOME DAYS [facility] [place] [facility] Dec 20, 2019 11:46 AM VA-TOBACCO USE 5 TO 15 YEARS [facility] [place] [facility] Dec 20, 2019 11:46 AM VA-TOBACCO USE ADVICE VA C [facility] [place] [facility] Dec 20, 2019 11:46 AM VA-TOBACCO USE PER DIEM CLERK YES [facility] [place] [facility] Dec 20, 2019 11:46 AM VA-TOBACCO USE MED NO VA C [facility] [place] [facility] Dec 20, 2019 11:46 AM VA-TOBACCO USE WI 30 MIN OF VA [facility] [place] [facility] Dec 20, 2019 11:46 AM VA-TOBACCO USER SOME DAYS [facility] [place] [facility] Dec 03, 2018 12:20 PM VA-TOBACCO USE 30 YEARS OR [facility] [place] [facility] Dec 03, 2018 12:20 PM VA-TOBACCO USE ADVICE VA C [facility]L [facility] [place] [facility] Dec 03, 2018 12:20 PM VA-TOBACCO USE PER DIEM CLERK NO [facility] [place] [facility] Dec 03, 2018 12:20 PM VA-TOBACCO USE MED NO VA C [facility]L [facility] [place] [facility] Dec 03, 2018 12:20 PM VA-TOBACCO USE WI 30 MIN OF [facility] [place] [facility] Dec 03, 2018 12:20 PM VA-TOBACCO USER EVERY DAY [facility] [place] [facility] Encounter Notes: All associated encounter notes This section contains the clinical notes associated to the Encounter. Date/Time Encounter Note(s) Provider Source Oct 26, 2021 01:03 PM RESPIRATORY THERAPY CONSULT: Ed JESUS [place] [facility]STRN LOCAL TITLE: CONSULT REPORT/RESPIRATORY THERAPY [place] [facility] STANDARD TITLE: RESPIRATORY THERAPY CONSULT DATE OF NOTE: OCT 26, 2021@13:03 ENTRY DATE: OCT 26, 2021@13:03:15 AUTHOR: PIETER JESUS EXP COSIGNER: URGENCY: STATUS: COMPLETED Telephone Coding and Documentation: Diagnosis: COPD Actual time spent with Patient via telephone: 5 minutes. was ordered to use a flutter device by h is non-VA correctional supervising cook, Dr. Sher. The device will be ordered through [facility]. Vet was contacted and agrees to call this casualty underwriter once he receives the device for teaching. He was mailed contact information for this casualty underwriter. /prince/ PIETER JESUS BA, TOTER RESPIRATORY THERAPIST Signed: 10/26/2021 13:06
--- OUTSIDE RECORDS SUMMARY | 2022-10-01 09:15 | XMS_ITS ---
:1950 [address] [facility] Address [address] [place] [id number] Support Name Relationship Address Phone JOSE OCAMPO Unavailable [address] [place] [address] JOSE OCAMPO Unavailable [address] [place] [address] Insurance Providers: All historical and current Section Date Range: From patient's date of to the date document was created.This section includes the names of all active insurance providers for the patient. Insurance Type of Plan Start of End of Group Member Insurance Policy P atient's Provider Coverage Name Policy Policy Number ID Provider's Winters's Relationship Coverage Coverage Telephone Name to Policy Number Winters [facility] MEDICARE MEDEX Jan 16, [id number] [phone] PAT[address] SUPPLEMEN HEARI 2013 10 [id number] ,RJ JOHNSON AND ELLEN [facility] MEDICARE MEDEX Jan 16, [id number] [phone] PATIENT MASS SUPPLEMEN HEARI 2013 10 [id number] ,RJ J[employer] AND MEDICARE MEDICARE PART Jan 16, PART A [id number] PATIENT (WNR) (M) A 2013 00 ,RJ MEDICARE MEDICARE PART Jan 16, PART B [id number] PATIENT (WNR) (M) B 2013 00 ,RJ MEDICARE MEDICARE PART Jan 16, PART A [id number] [id number] PATIENT (WNR) (M) A 2013 4 ,RJ MEDICARE MEDICARE PART Jan 16, PART B [id number] ANNETTE TER PATIENT (WNR) (M) B 2013 [id number] ,RJ MEDICARE MEDICARE PART Jan 16, PART A [id number] PATIENT (WNR) (M) A 2013 00 ,RJ MEDICARE MEDICARE PART Jan 16, PART B [id number] [id number] PATIENT (WNR) (M) B 2013 ,RJ Selected Encounter This section includes the information on record at [place] for the Encounter. Date/Time Encounter Type Encounter Reason Provider Source Description Dec 21, 2021 OFFICE O/P NEW PODIATRY ICD-10-CM B35.1 PEGGY FAJARDO 10:00 AM SF 15-29 MIN Tinea unguium with D Provider Comments: Onychomycosis ([facility] [id number]) IHE Encounter Template Text not used by AL Assessments - Encounter Diagnoses This section includes the primary and secondary diagnoses documented for the Encounter. Date/Time Primary/Secondary Diagnosis Name Provider Source Diagnosis Dec 21, 2021 PRIMARY Tinea unguium [facility]:57 PM [place] [facility] Dec 21, 2021 SECONDARY Peripheral [facility] 12:57 PM [facility] unspecified Plan of Treatment: Future Appointments (+ 6 months) and Future Tests (+/- 45 days) The Plan of Treatment section includes future care activities for the patient from all AL treatmentfacilities. This section includes future appointments and future orders which are active, pending orscheduled.Future Appointments This section includes appointments that were scheduled to occur 6 months from the date of the Encounter, up to a maximum of 20 appointments. The data comes from all AL treatment facilities. Appointment Date/Time Appointment Type Appointment Facili ty Name Apr 23, 2022 09:00 AM [facility] May 23, 2022 10:00 AM [facility] Social History: Smoking Status (Most current) and Tobacco Use (All prior to encounter date) This section includes the most current, and the historical, smoking and tobacco-related health factors from the AL facility where the Encounter took place.Current Smoking Status This section includes the most current smoking, or tobacco-related health factor, from the AL facility where the Encounter took place. Date/Time Current Smoking Status Comment Facility March 24, 2021 10:00 AM VA-TOBACCO USER SOME DAYS [facility] [place] [facility] Tobacco Use History This section includes a history of the smoking, or tobacco- related health factors, that were collected on or before the date of the Encounter. The data comes from the AL facility where the Encounter took place. Date/Time Smoking Status/Tobacco Use Comment [facility] March 24, 2021 10:00 AM VA-TOBACCO USE 30 YEARS OR [facility] [place] [facility] March 24, 2021 10:00 AM VA-TOBACCO USE ADVICE [facility] [place] [facility] March 24, 2021 10:00 AM VA-TOBACCO USE STRADDLE TRUCK DRIVER NO [facility] [place] [facility] March 24, 2021 10:00 AM VA-TOBACCO USE MED NO [facility] [place] [facility] March 24, 2021 10:00 AM VA-TOBACCO USER SOME DAYS [facility] [place] [facility] Dec 20, 2019 11:46 AM VA-TOBACCO USE 5 TO 15 YEARS [facility] [place] [facility] Dec 20, 2019 11:46 AM VA-TOBACCO USE ADVICE [facility] [place] [facility] Dec 20, 2019 11:46 AM VA-TOBACCO USE 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 TRUCK 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 YES [facility] [place] [facility] Dec 20, 2019 11:46 AM VA-TOBACCO USE MED NO [facility] [place] [facility] Dec 20, 2019 11:46 AM VA-TOBACCO USE WI 30 MIN OF [facility] [place] [facility] Dec 20, 2019 11:46 AM VA-TOBACCO USER SOME DAYS [facility] [place] [facility] Dec 03, 2018 12:20 PM VA-TOBACCO USE 30 YEARS OR [facility] [place] [facility] Dec 03, 2018 12:20 PM VA-TOBACCO USE ADVICE [facility] [place] [facility] Dec 03, 2018 12:20 PM VA-TOBACCO USE STRADDLE TRUCK 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 Date/Time Encounter Note(s) Provider Source Dec 21, 2021 12:48 PM PODIATRY CONSULT: SHILA FAJARDO [facility] LOCAL TITLE: CONSULT REPORT/PODIATRY [facility] STANDARD TITLE: PODIATRY CONSULT DATE OF NOTE: DEC 21, 2021@12:48 ENTRY DATE: DEC 21, 2021@12:48:25 AUTHOR: SHILA FAJARDO EXP COSIGNER: URGENCY: STATUS: COMPLETED S) 71 y/o male refrred for fungal nail c are. He has difficulty in reaching his feet PMH: Active problems - Computerized Problem List is t he source for the followin. Onychomycosis 2. DVT - Deep vein thrombosis 3. Hypothyroidism ([facility] [id number]) 4. Hyperlipidemia ([facility] [id number]) 5. Tobacco User ([facility] [id number]) 6. COPD - Chronic Obstructive Pulmonary Disease ([facility] [id number]) following with Dr Sher 7. Carcinoma in situ of ear, nose and throat 8. Carcinoma in situ of lung 9. Tinnitus 10. H/O: Deep vein thrombosis 11. Carotid artery stenosis 12. Cervical disc disease 13. Insomnia ([facility] [id number]) 14. OA - Osteoarthritis ([facility] [id number]) 15. Peripheral vascular disease Allergies: MOXIFLOXACIN O) Integumentary: nails x 10 thick, roug h, dystrophic, yellowed with subungual debris. Skinintact, no rash. Slight shoe rub dorsal left hallux IPJ from another set of shoes, not infected PV: DP faint, PT nonpalpable, cft 2-3 sec, no e yan, no hair growth Sensory: decreased 5.07 monofilament wire MSK: ROM wnl, strength diminished, has hammerto e ontractures of toes A) Onychomycosis PVD P) foot exam nails debrided x 10 bandaid to left hallux for protection. Shoes wo rn today appear ok rx: Clotrimazole 1% solution for nails daily advised daily foot inspection at home skin softener daily rtc 3 mos Active Outpatient Medications (including Supplie s): Active Outpatient Medications Status 1) ALBUTEROL 90MCG (CFC-F) 200D ORAL INHL INHALE 2 PUFFS ACTIVE BY MOUTH EVERY 4 HOURS NEEDED 2) APIXABAN 5MG TAB TAKE ONE-HALF TABLET BY MOUT H TWICE ACTIVE DAILY TO PREVENT BLOOD CLOTS. 3) CLOTRIMAZOLE 1% TOP SOLN APPLY DIRECTED TO PICALLY ACTIVE (S) ONCE DAILY FOR FUNGAL INFECTION 4) LEVOTHYROXINE NA (SYNTHROID) 25MCG TAB TAKE O NE ACTIVE TABLET BY MOUTH EVERY MORNING 30 MINUTES BEFORE BREAKFAST FOR THYROID - TAKE ON AN EMPTY STOMAC H WITH A FULL GLASS OF WATER 5) OLODATEROL/TIOTROP 2.5MCG/ACTUAT 60D INH INHA LE 2 ACTIVE PUFFS (1 DOSE) BY MOUTH ONCE DAILY 6) TRAZODONE HCL 50MG TAB TAKE ONE TABLET BY TIFFANY TH AT ACTIVE BEDTIME Active Non-VA Medications Status 1) Non-VA ASPIRIN 81MG EC TAB 81MG BY MOUTH TWIC E DAILY ACTIVE 2) Non-VA VARENICLINE 1MG TAB 1 TABLET BY MOUTH TWICE ACTIVE DAILY 8 Total Medications Podiatry related medications reviewed and no veronica nges reported /es/ SHILA FAJARDO DPM SEC[employer] M[employer]ER Signed: 12/21/2021 12:58
--- OUTSIDE RECORDS SUMMARY | 2022-10-01 09:16 | XMS_ITS | Encounter Summary ---
:1950 Author Organization [facility] Address [address] [place] [address] Support Name Relationship Address Phone JOSE OCAMPO Unavailable [address] [place] [address] JOSE OCAMPO Unavailable [address] [place] [address] Insurance Providers: All historical and current Section [...] [place] [employer] [place] Jan 16, [id number] [phone] PATIENT SUPPLEMEN HEARI 2014 10 [id number] ,RJ JOHNSON AND ELLEN [facility] MEDICARE MEDEX Jan 16, [id number] [phone] PATIENT MASS SUPPLEMEN HEARI 2014 10 [id number] ,RJ JOHNSON AND MEDICARE MEDICARE PART Jan 16, PART A [id number] [phone] PATIENT (WNR) (M) A 2013 EK 00 ,RJ MEDICARE MEDICARE PART Jan 16, PART B [id number] [phone] PATIENT (WNR) (M) B 2013 EK 00 ,RJ MEDICARE MEDICARE PART Jan 16, PART A [id number] [phone] PATIENT (WNR) (M) A 2013 4 ,RJ MEDICARE MEDICARE PART Jan 16, PART B [id number] [phone] ANNETTE JENKINS PATIENT (WNR) (M) B 2013 [id number] ,RJ MEDICARE MEDICARE PART Jan 16, PART A [id number] [phone] ANNETTE JENKINS PATIENT (WNR) (M) A [id number] 00 ,RJ MEDICARE MEDICARE PART Jan 16, PART B [id number] [phone] ANNETTE JENKINS PATIENT (WNR) (M) B 2013 ,RJ Selected Encounter This section includes the information on record at [place] for the Encounter. Date/Time Encounter Type Encounter Description Reason Provider Source March 25, 2022 12:00 Outpatient Encounter EVENT (HISTORICAL) AM IHE Encounter Template Text not used by [place] Plan of Treatment: Future Appointments (+ 6 months) and Future Tests (+/- 45 days) The Plan of Treatment section includes future care activities for the patient from all [place] treatmentfacilities. This section includes future appointments and future orders which are active, pending orscheduled.Future Appointments This section includes appointments that were scheduled to occur 6 months from the date of the Encounter, up to a maximum of 20 appointments. The data comes from all [place] treatment [facility]. Appointment Date/Time Appointment Type Appointment Facili ty Name Apr 23, 2022 09:00 AM AMBULATORY MEDICINE [facility] [place] [facility] May 23, 2022 10:00 AM [facility] MEDICINE [facility] [place] [facility] Active, Pending, and Scheduled Orders This section includes a listing of several types of active, pending, and scheduled orders, including clinic medications orders, diagnostic test orders, procedure orders and consult orders; where the start date of the order is 45 days before the date of the Encounter or 45 days after the date of the Encounter. The data comes from all [place] treatment [facility]. Test Date/Time Test Type Test Details Facility Name Apr 20, 2022 07:31 AM Consult Order COMMUNITY CARE-PULMONARY [facility] Cons Traffic Manager's Choice [facility] Social History: Smoking Status (Most current) and Tobacco Use (All prior to encounter date) This section includes the most current, and the historical, smoking and tobacco-related health factors from the HI facility where the Encounter took place.Current Smoking Status This section includes the most current smoking, or tobacco-related health factor, from the HI facility where the Encounter took place. Date/Time Current Smoking Status Comment Facility March 24, 2021 10:00 AM VA-TOBACCO USER SOME DAYS [facility] [place] [facility] Tobacco Use History This section includes a history of the smoking, or tobacco- related health factors, that were collected on or before the date of the Encounter. The data comes from the [place] facility where the Encounter took place. Date/Time Smoking Status/Tobacco Use Comment [facility] March 24, 2021 10:00 AM VA-TOBACCO USE 30 YEARS OR [facility] [place] [facility] March 24, 2021 10:00 AM VA-TOBACCO USE ADVICE VA [facility] [place] [facility] March 24, 2021 10:00 AM VA-TOBACCO USE CAREER INFORMATION SPECIALIST NO [facility] [place] [facility] March 24, 2021 10:00 AM VA-TOBACCO USE MED NO [facility] [place] [facility] March 24, 2021 10:00 AM VA-TOBACCO USER SOME DAYS [facility] [place] [facility] Dec 20, 2019 11:46 AM VA-TOBACCO USE 5 TO 15 YEARS [facility] [place] [facility] Dec 20, 2019 11:46 AM VA-TOBACCO USE ADVICE VA [facility] [place] [facility] Dec 20, 2019 11:46 AM VA-TOBACCO USE CAREER INFORMATION SPECIALIST YES [facility] [place] [facility] Dec 20, 2019 11:46 AM VA-TOBACCO USE MED NO VA [facility] [place] [facility] Dec 20, 2019 11:46 AM VA-TOBACCO USE WI 30 MIN OF [facility] [place] [facility] Dec 20, 2019 11:46 AM VA-TOBACCO USER SOME DAYS [facility] [place] [facility] Dec 03, 2018 12:20 PM VA-TOBACCO USE 30 YEARS OR [facility] [place] [facility] Dec 03, 2018 12:20 PM VA-TOBACCO USE ADVICE VA [facility] [place] [facility] Dec 03, 2018 12:20 PM VA-TOBACCO USE CAREER INFORMATION SPECIALIST NO [facility] [place] [facility] Dec 03, 2018 12:20 PM VA-TOBACCO USE MED NO [facility] [place] [facility] Dec 03, 2018 12:20 PM VA-TOBACCO USE WI 30 MIN OF [facility] [place] [facility] Dec 03, 2018 12:20 PM VA-TOBACCO USER EVERY DAY [facility] [place] [facility] Encounter Notes: All associated encounter notes This section contains the clinical notes associated to the Encounter. Date/Time Encounter Note(s) Provider Source March 25, 2022 12:00 AM NURSING ADMINISTRATIVE NOTE: [facility] LOCAL TITLE: NON-VA PRESCRIPTION [place] [facility] STANDARD TITLE: NURSING ADMINISTRATIVE NOTE DATE OF NOTE: MARCH 25, 2022 ENTRY DATE: MAY 01 022@11:55:13 AUTHOR: KARIN PANG COSIGNER: URGENCY: STATUS: COMPLETED VistA Imaging - Scanned Document SCANNED DOCUMENT SIGNATURE NOT REQUIRED Electronically Filed: 05/01/2022 by: LOVE PANG [employer]
--- OUTSIDE RECORDS SUMMARY | 2022-10-01 09:16 | XMS_ITS ---
:1950 Author Organization [facility] rs Address [address] [place] [id number] Support Name Relationship Address Phone JOSE OCAMPO Unavailable [address] [place] [address] JOSE OCAMPO Unavailable [address] [place] [address] Insurance Providers: All historical and current Section [...] [place] MEDICARE MEDEX Jan 16, [id number] [phone] SUPPLEMEN HEARI 2014 10 [id number] 4 ,RJ JOHNSON AND [facility] MEDICARE MEDEX Jan 16, [id number] [phone] PATIENT MASS SUPPLEMEN HEARI 2013 10 [id number] 3 ,RJ JOHNSON AND MEDICARE MEDICARE PART Jan 16, PART A [id number] PATIENT (WNR) (M) A 2013 EK 00 ,RJ MEDICARE MEDICARE PART Jan 16, PART B [id number] PATIENT (WNR) (M) B 2013 EK 00 ,RJ MEDICARE MEDICARE PART Jan 16, PART A [id number] PATIENT (WNR) (M) A 2013 4 ,RJ MEDICARE MEDICARE PART Jan 16, PART B [id number] PATIENT (WNR) (M) B 2013 [id number] ,RJ MEDICARE MEDICARE PART Jan 16, PART A [id number] [phone] PATIENT (WNR) (M) A 2013 [id number] ,RJ MEDICARE MEDICARE PART Jan 16, PART B [id number] [phone] PATIENT (WNR) (M) B 2013 00 ,RJ Selected Encounter This section includes the information on record at [place] for the Encounter. Date/Time Encounter Type Encounter Description Reason Provider Source May 18, 2022 01:37 Outpatient Encounter PRIMARY CARE/MEDICINE PM IHE Encounter [...] Date/Time Appointment Type Appointment Facili ty Name May 23, 2022 10:00 AM AMBULATORY - MEDICINE [place] [facility] [place] [facility] Active, Pending, and Scheduled Orders This section includes a listing of several types of active, pending, and scheduled orders, including clinic medications orders, diagnostic test orders, procedure orders and consult orders; where the start date of the order is 45 days before the date of the Encounter or 45 days after the date of the Encounter. The data comes from all [place] treatment facilities. Test Date/Time Test Type Test Details Facility Name Apr 20, 2022 07:31 AM Consult Order COMMUNITY CARE-PULMONARY V A [facility] Cons Operations Analyst's Choice [place] [facility] Lab Results: +/- 30 days of [...] Result - Unit Interpretation Reference Range Comment May 23, 2022 [facility] THYROID T4 FREE(FT4) Specimen T ype: SERUM 10:33 AM [place] [facility] No comment enter ed. Ordering Provid er: RAHEEL TRIPLETT Report Released Date/Time: May 14, 2022 12:00 PM Reporting Lab: [place] [facility] [place] [facility] [address] [facility] [address] Performing Lab: [place] [facility] [place] [facility] [address] [facility] [address] THYROID T4 FREE(FT4) 0.93 0.6-1.6 May 23, 2022 10:33 AM [facility] [place] [facility] Specimen Type: [facility] No comment enter ed. Ordering Provid er: RAHEEL TRIPLETT Report Released Date/Time: May 14, 2022 12:00 PM Reporting Lab: [place] [facility] [place] [facility] [address] [facility] [address] Performing Lab[facility] [place] [facility] [address] [facility] [address] TSH 5.56 H 0.35-5.00 May 23, 2022 10:33 [facility] LIVER FUNCTION Specimen Typ e: SERUM AM [place] [facility] No comment enter ed. Ordering Provid er: RAHEEL TRIPLETT Report Released Date/Time: May 14, 2022 12:00 PM Reporting Lab: [facility] [place] [facility] [address] [facility] [address] Performing Lab: [place] [facility] [place] [facility] [address] [facility] [address] PROTEIN,TOTAL 7.3 6.0-8.3 ALBUMIN 3.8 3.5-5.0 ALKALINE PHOSPHATASE 41 40-150 AST 14 5-34 ALT 9 <6-55 BILIRUBIN, TOTAL 0.4 0.2-1.2 May 23, 2022 [facility] HEMOGLOBIN A1C Specimen Type: BLOOD 10:33 AM [place] [facility] PANEL Comment: Values obtained from A1C measurements can vary. For typical A1C assays, a reported value of 7.0 could actually be between 6.72 and 7.28 if measured by a reference method. A reported value of 9 .0 could actuall y be between 8.73 and 9.27. Ref: http://www.ngsp.org/CAPdata.asp Ordering Provid er: RAHEEL TRIPLETT Report Released Date/Time: May 14, 2022 12:00 PM Reporting Lab: [facility] [place] [facility] [address] [facility] [address] Performing Lab: [facility]TR[facility] [place] [facility] [address] [facility] [address] HEMOGLOBIN A1C 5.1 4.0-5.6 May 23, 2022 [facility] PT & INR (PROTIME) Specimen Typ e: PLASMA 10:33 AM [place] [facility] No comment enter ed. Ordering Provid er: RAHEEL TRIPLETT Report Released Date/Time: May 14, 2022 12:00 PM Reporting Lab: [facility] [place] [facility] [address] [facility] [address] Performing Lab: [facility] [address] [facility] [address] INR 1.2 PROTIME 13.9 H 10.0-13.1 May 23, 2022 [facility] CBC AND DIFF Specimen Type: BLOOD 10:33 AM [place] [facility] (AUTO) No comment enter ed. Ordering Provid er: RAHEEL TRIPLETT Report Released Date/Time: May 14, 2022 12:00 PM Reporting Lab: [facility] [place] [facility] [address] [facility] [address] Performing Lab: [facility] [place] [facility] [address] [facility] [address] WBC 8.15 4.50-11.00 RBC 4.51 4.23-5.66 HGB 13.2 12.8-17 HCT 41.3 39.2-50.4 MCV 91.6 82-99 MCHC 32.0 30.8-35.1 PLT 237 140-360 RDW-CV 12.9 12.0-16.0 [place], Abs 0.56 0.30-1.10 MCH 29.3 26.2-32.6 Neut % 74.7 Lymph % 11.7 [place] % 6.9 Eos % 5.8 Baso % 0.5 Neut, Abs 6.10 2.20-7.60 Lymph, Abs 0.95 L 1.00-3.20 Eos, Abs 0.47 H 0.03-0.44 Baso, Abs 0.04 0.01-0.13 Immature Gran % 0.4 Immature Gran, Abs 0.03 0.00-0.06 May 23, 2022 [facility] LIPID PANEL, NON Specimen Type: SERUM 10:33 AM [place] [facility] FASTING No comment enter ed. Ordering Provid er: RAHEEL TRIPLETT Report Released Date/Time: May 23, 2022 10:20 AM Reporting Lab: [facility] [address] [facility] [address] Performing Lab: [facility] [address] [facility] [address] CHOLESTEROL 243 H <7-199 TRIGLYCERIDE 123 0-150 LDL calculated 178 H 0-129 CHOL/HDL 6.1 HDL CHOLESTEROL 40 40-60 May 23, 2022 [facility] BASIC METABOLIC PANEL Specimen Type: SERUM 10:33 AM [place] [facility] (non-fasting) No comment enter ed. Ordering Provid er: RAHEEL TRIPLETT Report Released Date/Time: May 23, 2022 10:20 AM Reporting Lab: [facility] [address] [facility] [address] Performing Lab: [facility] [address] [facility] [address] UREA NITROGEN 20 7-25 GLUCOSE 121 H 65-100 SODIUM 136 135-145 POTASSIUM 4.7 3.5-5.0 CHLORIDE 103 100-110 CO2 23 20-30 CREATININE, Serum 1.21 0.50-1.40 eGFR(CKD-EPI 2020) 64 >60 Social History: Smoking Status (Most current) and Tobacco Use (All prior to encounter date) This section includes the most current, and the historical, smoking and tobacco-related health factors from the [facility] where the Encounter took place.Current Smoking Status This section includes the most current smoking, or tobacco-related health factor, from the [place] facility where the Encounter took place. Date/Time Current Smoking Status Comment Facility March 24, 2021 10:00 AM VA-TOBACCO USER SOME DAYS [facility] [place] [facility] Tobacco Use History This section includes a history of the smoking, or tobacco- related health factors, that were collected on or before the date of the Encounter. The data comes from the [place] facility where the Encounter took place. 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 [facility] [place] [facility] March 24, 2021 10:00 AM VA-TOBACCO USE MED NO VA C [facility] [place] [facility] March 24, 2021 10:00 AM VA-TOBACCO USER SOME DAYS [facility] [place] [facility] Dec 20, 2019 11:46 AM VA-TOBACCO USE 5 TO 15 YEARS [facility] [place] [facility] Dec 20, 2019 11:46 AM VA-TOBACCO USE ADVICE VA C [facility] [place] [facility] Dec 20, 2019 11:46 AM 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 [facility] [place] [facility] Dec 20, 2019 11:46 AM VA-TOBACCO USE MED NO VA C [facility] [place] [facility] Dec 20, 2019 11:46 AM VA-TOBACCO USE WI 30 MIN OF VA [facility] [place] [employer] [facility] Dec 20, 2019 11:46 AM VA-TOBACCO USER SOME DAYS [facility] [place] [facility] Dec 03, 2018 12:20 PM VA-TOBACCO USE 30 YEARS OR VA [facility] [place] MORE [facility] Dec 03, 2018 12:20 PM VA-TOBACCO USE ADVICE VA C [facility] [place] [facility] Dec 03, 2018 12:20 PM 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 USE 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 [facility] [place] [facility] Dec 03, 2018 12:20 PM VA-TOBACCO USE MED NO VA C [facility] [place] [facility] Dec 03, 2018 12:20 PM VA-TOBACCO USE WI 30 MIN OF VA [facility] [place] [employer] Dec 03, 2018 12:20 PM VA-TOBACCO USER EVERY DAY [facility] [place] [facility] Encounter Notes: All associated encounter notes This section contains the clinical notes associated to the Encounter. Date/Time Encounter Note(s) Provider Source May 18, 2022 01:37 PM NURSING NOTE: REJI SAMUEL [place] [facility] LOCAL TITLE: NURSING/TELEPHONE [place] [facility] STANDARD TITLE: NURSING NOTE DATE OF NOTE: MAY 18, 2022@13:37 ENTRY DATE: MAY 18, 2022@13:37:42 AUTHOR: REJI SAMUEL EXP COSIGNER: URGENCY: STATUS: COMPLETED vet was called, HT spoke with vet inform he has an appt with PCP on 05-18-2022@ 1000,also labs have been orderd,vet acknowledge these instructions. /prince/ Reji Samuel, [employer] PROJECT MANAGER INDUSTRIAL,PRIMARY CARE Signed: 05/18/2022 13:43
--- OUTSIDE RECORDS SUMMARY | 2022-10-01 09:16 | XMS_ITS | Encounter Summary ---
:1950 Author Organization [facility] rs Address [address] [place] [id number] Support Name Relationship Address Phone JOSE OCAMPO Unavailable [address] [place] [address] JOSE OCAMPO Unavailable [address] [place] [address] Insurance Providers: All historical and current Section [...] to Policy Number Winters [facility] MEDICARE MEDEX Jan 16, [id number] [phone] PAT[address] SUPPLEMEN HEARI 2014 10 [id number] ,RJ JOHNSON AND [facility] MEDICARE MEDEX Jan 16, [id number] PATIENT MASS SUPPLEMEN HEARI 2013 10 [id number] ,RJ JOHNSON AND MEDICARE MEDICARE PART Jan 16, PART A [id number] PATIENT (WNR) (M) A 2013 00 ,RJ MEDICARE MEDICARE PART Jan 16, PART B [id number] PATIENT (WNR) (M) B 2013 00 ,RJ MEDICARE MEDICARE PART Jan 16, PART A [id number] PATIENT (WNR) (M) A 2013 4 ,RJ MEDICARE MEDICARE PART Jan 16, PART B [id number] ANNETTE JENKINS PATIENT (WNR) (M) B 2013 [id number] ,RJ MEDICARE MEDICARE PART Jan 16, PART A [id number] ANNETTE JENKINS PATIENT (WNR) (M) A 2013 [id number] ,RJ MEDICARE MEDICARE PART Jan 16, PART B [id number] ANNETTE JENKINS PATIENT (WNR) (M) B 2013 00 ,RJ Selected Encounter This section includes the information on record at [place] for the Encounter. Date/Time Encounter Type Encounter Description Reason Provider Source Oct 24, 2021 12:00 Outpatient Encounter [facility] AM CONSULT IHE Encounter Template Text not used by [place] Plan of Treatment: Future Appointments (+ 6 months) and Future Tests (+/- 45 days) The Plan of Treatment section includes future care activities for the patient from all [place] treatmentfacilities. This section includes future appointments and future orders which are active, pending orscheduled.Future Appointments This section includes appointments that were scheduled to occur 6 months from the date of the Encounter, up to a maximum of 20 appointments. The data comes from all [place] treatment facilities. Appointment Date/Time Appointment Type Appointment Facili ty Name Oct 26, 2021 08:30 AM [facility] Nov 03, 2021 11:00 AM [facility] Nov 08, 2021 01:30 PM AMBULATORY - REHAB MEDICINE [facility] [employer] Dec 21, 2021 10:00 AM [facility] Apr 23, 2022 09:00 AM [facility] Lab Results: +/- 30 days of the encounter This section includes the Chemistry and Hematology Lab Results on record with [place] for the patient. Radiology Reports and Pathology Reports are provided separately, in subsequent sections.Lab Results This section contains the Chemistry/Hematology Results that were resulted 30 days before or 30 daysafter the date of the Encounter. Date/Time Source Result Type Result - Unit Interpretation Reference Range Comment Nov 03, 2021 [facility] TH[facility] T4 FREE(FT4) Specimen T ype: SERUM 11:56 AM [employer] No comment enter ed. Ordering Provid er: RAHEEL TRIPLETT Report Released Date/Time: Nov 03, 2021 11:25 AM Reporting Lab: [place] [facility] [facility] [address] [facility] [address] Performing Lab: [place] [facility] [facility] [address] [facility] [address] THYROID T4 FREE(FT4) 0.85 0.6-1.6 Nov 03, 2021 [facility] PT & INR (PROTIME) Specimen Typ e: PLASMA 11:[address] [place] [facility] No comment enter ed. Ordering Provid er: RAHEEL TRIPLETT Report Released Date/Time: Nov 03, 2021 11:25 AM Reporting Lab: [place] [facility] [facility] [address] [facility] [address] Performing Lab: [facility] [place] [facility] [address] [facility] [address] INR 1.4 PROTIME 15.2 H 10.0-13.1 Nov 03, 2021 [facility] HEMOGLOBIN A1C PANEL Specimen T ype: BLOOD 11:[address] [place] [facility] Comment: Testin g performed by NGSP certified [...] Nov 03, 2021 11:25 AM Reporting Lab: [facility] [place] [facility] [address] [facility] [address] Performing Lab: [place] [facility] [facility] [address] [facility] [address] HEMOGLOBIN A1C 5.8 H 4.0-5.6 Nov 03, 2021 11:56 AM [facility] [place] TSH Specimen Type: SERUM [facility] No comment enter ed. Ordering Provid er: RAHEEL TRIPLETT Report Released Date/Time: Nov 03, 2021 11:25 AM Reporting Lab: [facility] [place] [facility] [address] [facility] [address] Performing Lab: [facility] [place] [facility] [address] [facility] [address] TSH 2.98 0.35-5.00 Nov 03, 2021 [facility] LIPID PANEL, NON Specimen Type: SERUM 11:56 AM [place] [facility] FAST[facility] No comment enter ed. Ordering Provid er: RAHEEL TRIPLETT Report Released Date/Time: Nov 03, 2021 11:25 AM Reporting Lab: [facility] [place] [facility] [address] [facility] [address] Performing Lab: [place] [facility] [facility] [address] [facility] [address] CHOLESTEROL 261 H 0-199 TRIGLYCERIDE 88 0-150 LDL calculated 202 H 0-129 CHOL/HDL 6.4 HDL CHOLESTEROL 41 40-60 Nov 03, 2021 [facility] BASIC METABOLIC PANEL Specimen Type: SERUM 11:56 AM [place] [facility] (non-fasting) No comment enter ed. Ordering Provid er: RAHEEL TRIPLETT Report Released Date/Time: Nov 03, 2021 11:25 AM Reporting Lab: [facility] [place] [facility] [address] [facility] [address] Performing Lab: [facility] [place] [facility] [address] [facility] [address] UREA NITROGEN 13 7-25 GLUCOSE 103 H 65-100 SODIUM 135 135-145 POTASSIUM 4.4 3.5-5.0 CHLORIDE 101 100-110 CO2 23 20-30 CREATININE, Serum 0.98 0.50-1.40 eGFR (IDMS) 76 >60 Nov 03, 2021 11:56 [facility] LIVER FUNCTION Specimen Typ e: SERUM AM [place] [facility] No comment enter ed. Ordering Provid er: RAHEEL TRIPLETT Report Released Date/Time: Nov 03, 2021 11:25 AM Reporting Lab: [facility] [place] [facility] [address] [facility] [address] Performing Lab: [place] [facility] [facility] [address] [facility] [address] PROTEIN,TOTAL 6.9 6.0-8.3 ALBUMIN 3.2 L 3.5-5.0 ALKALINE PHOSPHATASE 45 40-150 AST 14 5-34 ALT 12 0-55 BILIRUBIN, TOTAL 0.5 0.2-1.2 Nov 03, 2021 11:56 AM [place] [facility] [place] CBC Specimen Type: BLOOD [facility] No comment enter ed. Ordering Provid er: RAHEEL TRIPLETT Report Released Date/Time: Nov 03, 2021 11:25 AM Reporting Lab: [place] [facility] [facility] [address] [facility] [address] Performing Lab: [place] [facility] [facility] [address] [facility] [address] WBC 12.33 H 4.50-11.00 RBC 4.37 4.23-5.66 HGB 13.3 12.8-17 HCT 40.8 39.2-50.4 MCV 93.4 82-99 MCHC 32.6 30.8-35.1 PLT 337 140-360 RDW-CV 13.6 12.0-16.0 MCH 30.4 26.2-32.6 Social History: Smoking Status (Most current) and Tobacco Use (All prior to encounter date) This section includes the most current, and the historical, smoking and tobacco-related health factors from the [place] facility where the Encounter took place.Current Smoking Status This section includes the most current smoking, or tobacco-related health factor, from the [place] facility where the Encounter took place. Date/Time Current Smoking Status Comment Facility March 24, 2021 10:00 AM VA-TOBACCO USER SOME DAYS GA [facility]TRL [facility] [facility] Tobacco Use History This section includes a history of the smoking, or tobacco- related health factors, that were collected on or before the date of the Encounter. The data comes from the [place] facility where the Encounter took place. Date/Time Smoking Status/Tobacco Use Comment [facility] March 24, 2021 10:00 AM VA-TOBACCO USE 30 YEARS OR [facility] [place] [facility] March 24, 2021 10:00 AM VA-TOBACCO USE ADVICE [facility] 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 March 24, 2021 10:00 AM VA-TOBACCO USE MED NO [facility] [place] [facility] March 24, 2021 10:00 AM VA-TOBACCO USER SOME DAYS [facility] [facility] Dec 20, 2019 11:46 AM VA-TOBACCO USE 5 TO 15 YEARS [facility] [facility] Dec 20, 2019 11:46 AM VA-TOBACCO USE ADVICE [facility] [place] 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 Dec 20, 2019 11:46 AM VA-TOBACCO USE MED NO [facility] [place] [facility] Dec 20, 2019 11:46 AM VA-TOBACCO USE WI 30 MIN OF [facility] [place] [facility] Dec 20, 2019 11:46 AM VA-TOBACCO USER SOME DAYS [facility] [facility] Dec 03, 2018 12:20 PM VA-TOBACCO USE 30 YEARS OR [facility] [place] [facility] Dec 03, 2018 12:20 PM VA-TOBACCO USE ADVICE [facility] [place] [facility] Dec 03, 2018 12:20 PM VA-TOBACCO USE THORACIC SURGEON NO [facility] [facility] Dec 03, 2018 12:20 PM VA-TOBACCO USE MED NO [facility] [place] [facility] Dec 03, 2018 12:20 PM VA-TOBACCO USE WI 30 MIN OF [facility] [place] [facility] Dec 03, 2018 12:20 PM VA-TOBACCO USER EVERY DAY [facility] [place] [facility] Encounter Notes: All associated encounter notes This section contains the clinical notes associated to the Encounter. Date/Time Encounter Note(s) Provider Source Oct 24, 2021 12:00 AM NONVA CONSULT: [facility] LOCAL TITLE: [facility]-CONSULT RESULT NOTE [employer] STAND[facility] TITLE: NONVA CONSULT DATE OF NOTE: OCT 24, 2021 ENTRY DATE: MAY 03 022@13:19:37 AUTHOR: BORA COVINGTON EXP COSIGNER: URGENCY: STATUS: COMPLETED VistA Imaging - Scanned Document SCANNED DOCUMENT SIGNATURE NOT REQUIRED Electronically Filed: 05/03/2022 by: BORA COVINGTON ACID PAINTER
--- OUTSIDE RECORDS SUMMARY | 2022-10-01 09:16 | XMS_ITS | Encounter Summary ---
:1950 Author Organization [facility] rs Address [address] [place] [id number] Support Name Relationship Address Phone JOSE OCAMPO Unavailable [address] [place] [address] JOSE OCAMPO Unavailable [address] [place] [address] Insurance Providers: All historical and current Section [...] Telephone Name to Policy Number [place] Jan 16, [id number] [phone] PAT[address] SUPPLEMEN HEARI 2014 10 [id number] ,[facility] MEDIC[facility] MEDEX Jan 16, [id number] [phone] PATIENT MASS SUPPLEMEN HEARI 2013 10 [id number] ,RJ JOHNSON AND MEDICARE MEDICARE PART Jan 16, PART A [id number] [id number] PATIENT (WNR) (M) A 2013 4 ,RJ MEDICARE MEDICARE PART Jan 16, PART B [id number] PATIENT (WNR) (M) B 2013 4 ,RJ MEDICARE MEDICARE PART Jan 16, PART A [id number] [phone] PATIENT (WNR) (M) A 2013 73A 00 ,RJ MEDICARE MEDICARE PART Jan 16, PART B [id number] [phone] PATIENT (WNR) (M) B 2013 73A 00 ,RJ MEDICARE MEDICARE PART Jan 16, PART A [id number] [phone] PATIENT (WNR) (M) A 2013 00 ,RJ MEDICARE MEDICARE PART Jan 16, PART B [id number] [phone] PATIENT (WNR) (M) B 2013 ,RJ Selected Encounter This section includes the information on record at [place] for the Encounter. Date/Time Encounter Type Encounter Description Reason Provider Source April 11, 2022 12:00 Outpatient Encounter EVENT (HISTORICAL) AM IHE Encounter Template Text not used by [place] Plan of Treatment: Future Appointments (+ 6 months) and Future Tests (+/- 45 days) The Plan of Treatment section includes future care activities for the patient from all [place] treatmentfacilities. This section includes future appointments and future orders which are active, pending orscheduled.Future Appointments This section includes appointments that were scheduled to occur 6 months from the date of the Encounter, up to a maximum of 20 appointments. The data comes from all [place] treatment [facility]. Appointment Date/Time Appointment Type Appointment Facili ty Name Apr 23, 2022 09:00 AM AMBULATORY MEDICINE [place] [facility] May 23, 2022 10:00 AM [facility]ICINE [place] [facility] [place] [facility] Active, Pending, and Scheduled Orders This section includes a listing of several types of active, pending, and scheduled orders, including clinic medications orders, diagnostic test orders, procedure orders and consult orders; where the start date of the order is 45 days before the date of the Encounter or 45 days after the date of the Encounter. The data comes from all [place] treatment [facility]. 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 Date/Time Current Smoking Status Comment Facility March 24, 2021 10:00 AM VA-TOBACCO USER SOME DAYS [facility] [place] [facility] Tobacco Use History This section includes a history of the smoking, or tobacco- related health factors, that were collected on or before the date of the Encounter. The data comes from the [place] facility where the Encounter took place. 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 [facility] [place] [facility] March 24, 2021 10:00 AM VA-TOBACCO USE MED NO [facility] [place] [facility] March 24, 2021 10:00 AM VA-TOBACCO USER SOME DAYS [facility] [place] [facility] Dec 20, 2019 11:46 AM VA-TOBACCO USE 5 TO 15 YEARS [facility] [place] [facility] Dec 20, 2019 11:46 AM VA-TOBACCO USE ADVICE [facility] [place] [facility] Dec 20, 2019 11:46 AM VA-TOBACCO USE 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 [facility] [place] [facility] Dec 20, 2019 11:46 AM VA-TOBACCO USE MED NO [facility] [place] [facility] Dec 20, 2019 11:46 AM VA-TOBACCO USE [place] 30 MIN OF [facility] [place] [facility] Dec 20, 2019 11:46 AM VA-TOBACCO USER SOME DAYS [facility] [place] [facility] Dec 03, 2018 12:20 PM VA-TOBACCO USE 30 YEARS OR [facility] [place] [facility] Dec 03, 2018 12:20 PM VA-TOBACCO USE ADVICE [facility] [place] [facility] Dec 03, 2018 12:20 PM VA-TOBACCO USE 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 Date/Time Encounter Note(s) Provider Source April 11, 2022 12:00 AM NURSING ADMINISTRATIVE NOTE: [place] [facility] LOCAL TITLE: NON-VA PRESCRIPTION [place] [facility] STANDARD TITLE: NURSING ADMINISTRATIVE NOTE DATE OF NOTE: APRIL 11, 2022 ENTRY DATE: APR 27 022@11:49:44 AUTHOR: DAYNA RAE EXP COSIGNER: URGENCY: STATUS: COMPLETED VistA Imaging - Scanned Document SCANNED DOCUMENT SIGNATURE NOT REQUIRED Electronically Filed: 04/27/2022 by: DAYNA RAE DANCE COSTUME DESIGNER
--- OUTSIDE RECORDS SUMMARY | 2022-10-01 09:16 | XMS_ITS | Encounter Summary ---
:1950 Author Organization [facility] rs Address [address] [place] [id number] Support Name Relationship Address Phone JOSE OCAMPO Unavailable [address] [place] [address] JOSE OCAMPO Unavailable [address] [place] [address] Insurance Providers: All historical and current Section Date Range: From patient's date of to the date document was created.This section includes the names of all active insurance providers for the patient. Insurance Type of Plan Start of End of Group Member Insurance Policy P atient's Provider Coverage Name Policy Policy Number ID Provider's Winters's Relationship Coverage Coverage Telephone Name to Policy Number Winters [facility] MEDICARE MEDEX Jan 16, [id number] [phone] SUPPLEMEN HEARI 2014 10 [id number] ,[facility] MEDICARE MEDEX Jan 16, [id number] [phone] PATIENT MASS SUPPLEMEN HEARI 2013 10 [id number] ,RJ JOHNSON AND MEDICARE MEDICARE PART Jan 16, PART A [id number] PATIENT (WNR) (M) A 2013 00 ,RJ MEDICARE MEDICARE PART Jan 16, PART B [id number] [phone] PATIENT (WNR) (M) B 2013 EK [id number] ,RJ MEDICARE MEDICARE PART Jan 16, PART A [id number] PATIENT (WNR) (M) A 2013 4 ,RJ MEDICARE MEDICARE PART Jan 16, PART B [id number] ANNETTE JENKINS PATIENT (WNR) (M) B 2013 [id number] ,RJ MEDICARE MEDICARE PART Jan 16, PART A [id number] [phone] ANNETTE JENKINS PATIENT (WNR) (M) A [id number] 00 ,RJ MEDICARE MEDICARE PART Jan 16, PART B [id number] [phone] ANNETTE JENKINS PATIENT (WNR) (M) B 2013 ,RJ Selected Encounter This section includes the information on record at [place] for the Encounter. Date/Time Encounter Type Encounter Description Reason Provider Source April 11, 2022 11:10 Outpatient Encounter TELEPHONE TRIAGE AM IHE Encounter Template Text not used by [place] Plan of Treatment: Future Appointments (+ 6 months) and Future Tests (+/- 45 days) The Plan of Treatment section includes future care [facility] for the [facility] [place] [facility] This section includes future appointments and future orders which are active, pending orscheduled.Future Appointments This section includes appointments that were scheduled to occur 6 months from the date of the Encounter, up to a maximum of 20 appointments. The data comes from all [place] treatment [facility]. Appointment Date/Time Appointment Type Appointment Facili ty Name Apr 23, 2022 09:00 AM AMBULATORY MEDICINE [place] [facility] May 23, 2022 10:00 AM [facility] MEDICINE [place] [facility] [place] [facility] Active, Pending, and Scheduled Orders This section includes a listing of several types of active, pending, and scheduled orders, including clinic medications orders, diagnostic test orders, procedure orders and consult orders; where the start date of the order is 45 days before the date of the Encounter or 45 days after the date of the Encounter. The data comes from all [place] treatment [facility]. 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 Date/Time Current Smoking Status Comment Facility March 24, 2021 10:00 AM VA-TOBACCO USER SOME DAYS [facility] [place] [facility] Tobacco Use History This section includes a history of the smoking, or tobacco- related health factors, that were collected on or before the date of the Encounter. The data comes from the [place] facility where the Encounter took place. Date/Time Smoking Status/Tobacco Use Comment [facility] March 24, 2021 10:00 AM VA-TOBACCO USE 30 YEARS OR [facility] [place] [facility] March 24, 2021 10:00 AM VA-TOBACCO USE ADVICE [facility] [place] [facility] March 24, 2021 10:00 AM VA-TOBACCO USE TINT LAYER NO [facility] [place] [facility] March 24, 2021 10:00 AM VA-TOBACCO USE MED NO [facility] [place] [facility] March 24, 2021 10:00 AM VA-TOBACCO USER SOME DAYS [facility] [place] [facility] Dec 20, 2019 11:46 AM VA-TOBACCO USE 5 TO 15 YEARS [facility] [place] [facility] Dec 20, 2019 11:46 AM VA-TOBACCO USE ADVICE VA [facility] [place] [facility] Dec 20, 2019 11:46 AM VA-TOBACCO USE TINT LAYER YES [facility] [place] [facility] Dec 20, 2019 11:46 AM VA-TOBACCO USE MED NO [facility] [place] [facility] Dec 20, 2019 11:46 AM VA-TOBACCO USE [place] 30 MIN OF [facility] [place] [facility] Dec 20, 2019 11:46 AM VA-TOBACCO USER SOME DAYS [facility] [place] [facility] Dec 03, 2018 12:20 PM VA-TOBACCO USE 30 YEARS OR [facility] [place] MORE [facility] Dec 03, 2018 12:20 PM VA-TOBACCO USE ADVICE VA [facility] [place] [facility] Dec 03, 2018 12:20 PM VA-TOBACCO USE TINT LAYER NO [facility] [place] [facility] Dec 03, 2018 12:20 PM VA-TOBACCO USE MED NO VA [facility] [place] [facility] Dec 03, 2018 12:20 PM VA-TOBACCO USE [place] 30 MIN OF [facility] Dec 03, 2018 12:20 PM VA-TOBACCO USER EVERY DAY [facility] Encounter Notes: All associated encounter notes This section contains the clinical notes associated to the Encounter. Date/Time Encounter Note(s) Provider Source April 11, 2022 11:10 AM TELEPHONE ENCOUNTER NOTE: BEBE GUTIERREZ [facility] LOCAL TITLE: VISN 1 CCC ACTION REQUIRED [facility] STANDARD TITLE: TELEPHONE ENCOUNTER NOTE DATE OF NOTE: APRIL 11, 2022@11:10:14 ENTRY DATE: APRIL 11, 2022@11:14:28 AUTHOR: BEBE GUTIERREZ EXP COSIGNER: URGENCY: STATUS: COMPLETED VISN 1 CCC ACTION REQUIRED Has ADDENDA The patient, RJ OCAMPO ([id number]) Ph one: [phone] called the call center. The following identifiers were used to verify th is patient: . SSN. Contact Type of call: REFERRAL/CONSULT REQUEST. Caller Response: ADM CALL RESOLVED Caller Area: [facility] Provider Info: LOCAL - [facility] ([id number]) PACT: NO PACT 7 (Focus: Primary Care Only) Primary Care Provider: RAHEEL TRIPLETT PH ONE:[phone] Photovoltaic Installer: Clinical Associate: REJI SAMUEL PHONE:[phone] Software Lead: SHERRIE ORTIZ PACT Clinical Pharmacist: BRAYDEN MAYES PHONE:[phone] Clinical POC: Administrative POC: Software Lead SHERRIE ORTIZ Author: BEBE GUTIERREZ Comments: Vet requests an updated pulmonary consult for ap pt. on 04/23/22. Vet states his outside PCP prescribed a new RX f or cholesterol and vet would like it filled by the [place]. Customer Support Assistant provided vet with primary care fax for RX request. Evaluation/Management Code: HC PRO PHONE CALL 5- 10 MIN ([id number]). Starting at: 04/11/2022 @ 11:10:14 AM Ending at: 04/11/2022 @ 11:12:46 AM Length: 2 minutes. Chief Complaint: Not applicable to call. Class Code: Other specified counseling. Patient's Email Address: [email or web address] /es/ BEBE GUTIERREZ ADVANCED CORE COMPOSER FEEDER Signed: 04/11/2022 11:14 Receipt Acknowledged By: 04/11/2022 13:34 /es/ Reji Samuel, [facility] TUMBLER OPERATOR,PRIMARY CARE 04/19/2022 ADDENDUM STATUS: COMPLETED Received fax from [facility] regarding Edith childs having a follow up on 04/23/[address] Wyatt, I have requested notes fr om appt in Oct 2021. If agreeable please submit new pulmonary consult. Current auth will exp on 04/22/22. /es/ ANTONIO MOODY ADVANCED CORE COMPOSER FEEDER Signed: 04/19/2022 15:47 Receipt Acknowledged By: * AWAITING SIGNATURE * SHERRIE ORTIZ * AWAITING SIGNATURE * REJI SAMUEL * AWAITING SIGNATURE * RAHEEL TRIPLETT
--- OUTSIDE RECORDS SUMMARY | 2022-10-01 09:16 | XMS_ITS | Encounter Summary ---
:1950 Author Organization [facility] rs Address [address] [place] [address] Support Name Relationship Address Phone JOSE OCAMPO Unavailable [address] [place] [address] JOSE OCAMPO Unavailable [address] [place] [address] Insurance Providers: All historical and current Section [...] Telephone Name to Policy Number [place] MED[place] MED[place] Jan 16, [id number] [phone] PATIENT SUPPLEMEN HEARI 2013 [id number] ,[facility] MEDICARE MEDEX Jan 16, [id number] [phone] PATIENT MASS SUPPLEMEN HEARI 2013 10 [id number] ,RJ JOHNSON AND MEDICARE MEDICARE PART Jan 16, PART A [id number] PATIENT (WNR) (M) A 2013 00 ,RJ MEDICARE MEDICARE PART Jan 16, PART B [id number] [phone] PATIENT (WNR) (M) B 2013 EK 00 ,RJ MEDICARE MEDICARE PART Jan 16, PART A [id number] [phone] PATIENT (WNR) (M) A 2013 4 ,RJ MEDICARE MEDICARE PART Jan 16, PART B [id number] PATIENT (WNR) (M) B 2013 [id number] ,RJ MEDICARE MEDICARE PART Jan 16, PART A [id number] [phone] PATIENT (WNR) (M) A 2013 [id number] ,RJ MEDICARE MEDICARE PART Jan 16, PART B [id number] [phone] PATIENT (WNR) (M) B 2013 00 ,RJ Selected Encounter This section includes the information on record at [place] for the Encounter. Date/Time Encounter Type Encounter Description Reason Provider Source May 23, 2022 09:30 Outpatient Encounter PRIMARY CARE/MEDICINE AM IHE Encounter Template Text not used [...] Appointment Type Appointment Facili ty Name Nov 22, 2022 10:00 AM AMBULATORY - MEDICINE [place] [facility] [place] [facility] Active, Pending, [...] the Encounter. The data comes from all [place] treatment facilities. 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 Lab Results: +/- 30 days of the [...] Interpretation Reference Range Comment May 23, 2022 [facility] THYROID T4 FREE(FT4) Specimen T ype: SERUM 10:33 AM [place] [facility] No comment enter ed. Ordering Provid er: DAYO MILAN Report Released Date/Time: May 14, 2022 12:00 PM Reporting Lab: [facility] [place] [facility] [address] [facility] [address] Performing Lab: [place] [facility] [place] [facility] [address] [facility] [address] THYROID T4 FREE(FT4) 0.93 0.6-1.6 May 23, 2022 10:33 AM [facility] [place] [facility] Specimen Type: [facility] No comment enter ed. Ordering Provid er: DAYO MILAN Report Released Date/Time: May 14, 2022 12:00 PM Reporting Lab: [place] [facility] [place] [facility] [address] [facility] [address] Performing Lab: [facility] [place] [facility] [address] [facility] [address] TSH 5.56 H 0.35-5.00 May 23, 2022 10:33 [facility] LIVER FUNCTION Specimen Typ e: SERUM AM [place] [facility] No comment enter ed. Ordering Provid er: DAYO MILAN Report Released Date/Time: May 14, 2022 12:00 PM Reporting Lab: [facility] [place] [facility] [address] [facility] [address] Performing Lab: [place] [facility] [place] [facility] [address] [facility] [address] PROTEIN,TOTAL 7.3 6.0-8.3 ALBUMIN 3.8 3.5-5.0 ALKALINE PHOSPHATASE 41 40-150 AST 14 5-34 ALT 9 <6-55 BILIRUBIN, TOTAL 0.4 0.2-1.2 May 23, 2022 [facility] HEMOGLOBIN A1C Specimen Type: BLOOD 10:33 AM [place] [facility] PANEL Comment: Values obtained from A1C measurements can vary. For typical A1C assays, a reported value of 7.0 could actually be between 6.72 and 7.28 if measured by a reference method. A reported value of 9 .0 could actuall y be between 8.73 and 9.27. Ref: [email or web address]/[email or web address] Ordering Provid er: DAYO MILAN Report Released Date/Time: May 14, 2022 12:00 PM Reporting Lab: [facility] [place] [facility] [address] [facility] [address] Performing Lab: [facility] [place] [facility] [address] [facility] [address] HEMOGLOBIN A1C 5.1 4.0-5.6 May 23, 2022 [facility] PT & INR (PROTIME) Specimen Typ e: PLASMA 10:33 AM [place] [facility] No comment enter ed. Ordering Provid er: DAYO MILAN Report Released Date/Time: May 14, 2022 12:00 PM Reporting Lab: [facility] [place] [facility] [address] [facility] [address] Performing Lab: [facility] [address] [facility] [address] INR 1.2 PROTIME 13.9 H 10.0-13.1 May 23, 2022 [facility] CBC AND DIFF Specimen Type: BLOOD 10:33 AM [place] [facility] (AUTO) No comment enter ed. Ordering Provid er: DAYO MILAN Report Released Date/Time: May 14, 2022 12:00 PM Reporting Lab: [facility] [place] [facility] [address] [facility] [address] Performing Lab: [facility] [place] [facility] [address] [facility] [address] WBC 8.15 4.50-11.00 RBC 4.51 4.23-5.66 HGB 13.2 12.8-17 HCT 41.3 39.2-50.4 MCV 91.6 82-99 MCHC 32.0 30.8-35.1 PLT 237 140-360 RDW-CV 12.9 12.0-16.0 Bourbon, Abs 0.56 0.30-1.10 MCH 29.3 26.2-32.6 Neut % 74.7 Lymph % 11.7 [place] % 6.9 Eos % 5.8 Baso % 0.5 Neut, Abs 6.10 2.20-7.60 Lymph, Abs 0.95 L 1.00-3.20 Eos, Abs 0.47 H 0.03-0.44 Baso, Abs 0.04 0.01-0.13 Immature Gran % 0.4 Immature Gran, Abs 0.03 0.00-0.06 May 23, 2022 [facility] LIPID PANEL, NON Specimen Type: SERUM 10:33 AM [place] [facility] FASTING No comment enter ed. Ordering Provid er: DAYO MILAN Report Released Date/Time: May 23, 2022 10:20 AM Reporting Lab: [facility] [address] [facility] [address] Performing Lab: [facility] [address] CHOLESTEROL 243 H <7-199 TRIGLYCERIDE 123 0-150 LDL calculated 178 H 0-129 CHOL/HDL 6.1 HDL CHOLESTEROL 40 40-60 May 23, 2022 [facility] BASIC METABOLIC PANEL Specimen Type: SERUM 10:33 AM [facility] [place] (non-fasting) No comment enter ed. Ordering Provid er: DAYO MILAN Report Released Date/Time: May 23, 2022 10:20 AM Reporting Lab: [facility] [place] [facility] [address] [facility] [address] Performing Lab: [facility] [address] UREA NITROGEN 20 7-25 GLUCOSE 121 H 65-100 SODIUM 136 135-145 POTASSIUM 4.7 3.5-5.0 CHLORIDE 103 100-110 CO2 23 20-30 CREATININE, Serum 1.21 0.50-1.40 eGFR(CKD-EPI 2020) 64 >60 Vital Signs: All taken on the encounter date This section contains inpatient and outpatient Vital Signs collected on the date of the Encounter. Date/Time Temperature Pulse Blood Respiratory SP02 Pain Height Weight Arben dy Source Pressure Rate Mass Index May 23, 98.7 F 95 118/71 20 /min 98 % 0 71 in 205 lb 29 [facility] 2021 09:51 /min mm[Hg] CN[facility] AM [place] [facility] Social History: Smoking Status (Most current) and [...] place. Date/Time Current Smoking Status Comment Facility May 23, 2022 10:00 AM VA-TOBACCO FORMER USER [facility] [place] [facility] Tobacco Use History This section includes a history of the smoking, or tobacco- related health factors, that were collected on or before the date of the Encounter. The data comes from the [place] facility where the Encounter took place. Date/Time Smoking Status/Tobacco Use Comment [facility] May 23, 2022 10:00 AM VA-TOBACCO QUIT 1 TO < 5 YRS [facility] [place] [facility] March 24, 2021 10:00 AM VA-TOBACCO DOESNT USE WI 30 [facility] [place] [facility] March 24, 2021 10:00 AM VA-TOBACCO USE 30 YEARS OR [facility] [place] [facility] March 24, 2021 10:00 AM VA-TOBACCO USE ADVICE [facility] [place] [facility] March 24, 2021 10:00 AM VA-TOBACCO USE CIRCULAR CLERK NO [facility] [place] [facility] [...] Dec 20, 2019 11:46 AM VA-TOBACCO USE CIRCULAR CLERK YES [facility] [place] [facility] [place] [facility] Dec 03, 2018 12:20 PM VA-TOBACCO USE ADVICE [facility] C [facility] [place] [facility] Dec 03, 2018 12:20 PM VA-TOBACCO USE CIRCULAR CLERK NO [facility] [place] [facility] [...] [facility]L [facility] [place] [facility] Encounter Notes: All associated encounter notes This section contains the clinical notes associated to the Encounter. Date/Time Encounter Note(s) Provider Source April 12, 2022 12:15 PM PRIMARY CARE NURSE PRACTITIONER OUTPAT IENT NOTE: DAYO MILAN [place] [facility] LOCAL TITLE: NURSE PRACTITIONER OUTPATIENT NOTE [facility] STANDARD TITLE: PRIMARY CARE NURSE PRACTITIONER OUTPATIENT NOTE DATE OF NOTE: APRIL 12, 2022@12:15 ENTRY DATE: APRIL 12, 2022@12:15:55 AUTHOR: DAYO MILAN EXP COSIGNER: URGENCY: STATUS: COMPLETED rx from Dr. Lo, atorvastatin 20mg every PM. /prince/ Dayo Milan DNP, DRINKING WATER TECHNICIAN-BC, CNL Primary Care Nurse Practitioner Signed: 04/12/2022 12:16
--- OUTSIDE RECORDS SUMMARY | 2022-10-01 09:16 | XMS_ITS ---
:1950 Author Organization [facility] rs Address [address] [place] [address] Support Name Relationship Address Phone JOSE OCAMPO Unavailable [address] [place] [address] JOSE OCAMPO Unavailable [address] [place] [address] Insurance Providers: All historical and current Section [...] Telephone Name to Policy Number [place] BS [place] MED[place] Jan 16, [id number] [phone] PATIENT SUPPLEMEN HEARI 2013 10 [id number] ,RJ JOHNSON AND [facility] MEDICARE MEDEX Jan 16, [id number] [phone] PATIENT MASS SUPPLEMEN HEARI 2013 10 [id number] ,RJ JOHNSON AND MEDICARE MEDICARE PART Jan 16, PART A [id number] PATIENT (WNR) (M) A 2013 00 ,RJ MEDICARE MEDICARE PART Jan 16, PART B [id number] PATIENT (WNR) (M) B 2013 EK 00 ,RJ MEDICARE MEDICARE PART Jan 16, PART A [id number] PATIENT (WNR) (M) A 2013 4 ,RJ MEDICARE MEDICARE PART Jan 16, PART B [id number] ANNETTE JENKINS PATIENT (WNR) (M) B 2013 [id number] ,RJ MEDICARE MEDICARE PART Jan 16, PART A [id number] [phone] ANNETTE JENKINS PATIENT (WNR) (M) A [id number] 00 ,RJ MEDICARE MEDICARE PART Jan 16, PART B [id number] [phone] ANNETTE JENKINS PATIENT (WNR) (M) B 2013 ,RJ Selected Encounter This section includes the information on record at [place] for the Encounter. Date/Time Encounter Type Encounter Description Reason Provider Source Jan 15, 2022 02:07 Outpatient Encounter PRIMARY CARE/MEDICINE PM IHE Encounter Template Text not used by [place] Plan of Treatment: Future Appointments (+ 6 months) and Future Tests (+/- 45 days) The Plan of Treatment section includes future care activities for the patient from all [place] treatmentfacilities. This section includes future appointments and future orders which are active, pending orscheduled.Future Appointments This section includes appointments that were scheduled to occur 6 months from the date of the Encounter, up to a maximum of 20 appointments. The data comes from all [place] treatment facilities. Appointment Date/Time Appointment Type Appointment Facili ty Name Apr 23, 2022 09:00 AM AMBULATORY - MEDICINE [facility] May 23, 2022 10:00 AM AMBULATORY MEDICINE [facility] Social History: Smoking Status (Most current) and Tobacco Use (All prior to encounter date) This section includes the most current, and the historical, smoking and tobacco-related health factors from the [place] facility where the Encounter took place.Current Smoking Status This section includes the most current smoking, or tobacco-related health factor, from the [place] facility where the Encounter took place. Date/Time Current Smoking Status Comment Facility March 24, 2021 10:00 AM VA-TOBACCO USER SOME DAYS [facility] Tobacco Use History This section includes a history of the smoking, or tobacco- related health factors, that were collected on or before the date of the Encounter. The data comes from the [place] facility where the Encounter took place. Date/Time Smoking Status/Tobacco Use Comment [facility] March 24, 2021 10:00 AM [place]-TOBACCO USE 30 YEARS OR [facility] March 24, 2021 10:00 AM VA-TOBACCO USE ADVICE [facility] [place] [facility] March 24, 2021 10:00 AM VA-TOBACCO USE HEALTH INFORMATION INTERNSHIP NO [facility] [place] [facility] March 24, 2021 10:00 AM VA-TOBACCO USE MED NO [facility] [place] [facility] March 24, 2021 10:00 AM VA-TOBACCO USER SOME DAYS [facility] [place] [facility] Dec 20, 2019 11:46 AM VA-TOBACCO USE 5 TO 15 YEARS [facility] [place] [facility] Dec 20, 2019 11:46 AM VA-TOBACCO USE ADVICE [facility] [place] [facility] Dec 20, 2019 11:46 AM VA-TOBACCO USE HEALTH INFORMATION INTERNSHIP YES [facility] [place] [facility] Dec 20, 2019 11:46 AM VA-TOBACCO USE MED NO [facility] [place] [facility] Dec 20, 2019 11:46 AM VA-TOBACCO USE WI 30 MIN OF [facility] [place] [facility] Dec 20, 2019 11:46 AM VA-TOBACCO USER SOME DAYS [facility] [place] [facility] Dec 03, 2018 12:20 PM VA-TOBACCO USE 30 YEARS OR [facility] [place] [facility] Dec 03, 2018 12:20 PM VA-TOBACCO USE ADVICE [facility] [place] [facility] Dec 03, 2018 12:20 PM VA-TOBACCO USE HEALTH INFORMATION INTERNSHIP NO [facility] [place] [facility] Dec 03, 2018 12:20 PM VA-TOBACCO USE MED NO [facility] [place] [facility] Dec 03, 2018 12:20 PM VA-TOBACCO USE [place] 30 MIN OF [facility] [place] [facility] Dec 03, 2018 12:20 PM VA-TOBACCO USER EVERY DAY [facility] [place] [facility] Encounter Notes: All associated encounter notes This section contains the clinical notes associated to the Encounter. Date/Time Encounter Note(s) Provider Source Jan 15, 2022 02:07 MEDICATION MGT NOTE: ALYSSIA DOWNEY [facility] PM LOCAL TITLE: OUTPATIENT MEDICATION REQUEST [place] [facility] STANDARD TITLE: MEDICATION MGT NOTE DATE OF NOTE: JAN 15, 2022@14:07 ENTRY DATE: JAN 15, 2022@14:07:35 AUTHOR: ALYSSIA DOWNEY COSIGNER: URGENCY: STATUS: COMPLETED Medication Request Date of Request: Dec Is this a New Medication? No Active and Recently Outpatient Medicatio ns (including Supplies): Active Outpatient Medications Status 1) ALBUTEROL 90MCG (CFC-F) 200D ORAL INHL INHALE 2 PUFFS ACTIVE BY MOUTH EVERY 4 HOURS NEEDED 2) APIXABAN 5MG TAB TAKE ONE-HALF TABLET BY MOUT H TWICE ACTIVE (S) DAILY TO PREVENT BLOOD CLOTS. 3) CLOTRIMAZOLE 1% TOP SOLN APPLY DIRECTED TO PICALLY ACTIVE (S) ONCE DAILY FOR FUNGAL INFECTION 4) OLODATEROL/TIOTROP 2.5MCG/ACTUAT 60D INH INHA LE 2 ACTIVE (S) PUFFS (1 DOSE) BY MOUTH ONCE DAILY 5) TRAZODONE HCL 50MG TAB TAKE ONE TABLET BY TIFFANY TH AT ACTIVE BEDTIME Inactive Outpatient Medications Status 1) LEVOTHYROXINE NA (SYNTHROID) 25MCG TAB TAKE O NE TABLET BY MOUTH EVERY MORNING 30 MINUTES BEFORE BREAKFAST FOR THYROID - TAKE ON AN EMPTY STOMAC H WITH A FULL GLASS OF WATER Active Non-VA Medications Status 1) Non-VA ASPIRIN 81MG EC TAB 81MG BY MOUTH TWIC E DAILY ACTIVE 2) Non-VA VARENICLINE 1MG TAB 1 TABLET BY MOUTH TWICE ACTIVE DAILY 8 Total Medications The following actions were performed: Placed in Provider Folder : LEVOTHYROXINE NA (SYNTHROID) 25MCG TAB Prescri ption #:[id number] Prescribing Physician: RAHEEL TRIPLETT (NURSE PRACTITIO) on 01/12/2021 10:53 Frequency/Dosage: 0.025MG ORAL QAMAC *Please let patient know that this reque st may take up to 72 hours to process. * /prince/ ALYSSIA DOWNEY RN MSN REGISTERED NURSE Signed: 01/15/2022 14:08 Receipt Acknowledged By: * AWAITING SIGNATURE * RAHEEL TRIPLETT
--- OUTSIDE RECORDS SUMMARY | 2022-10-01 09:16 | XMS_ITS ---
:1950 Author Organization [facility] rs Address [address] [place] [id number] Support Name Relationship Address Phone JOSE OCAMPO Unavailable [address] [place] [address] JOSE OCAMPO Unavailable [address] [place] [address] Insurance Providers: All historical and current Section Date Range: From patient's date of to the date document was created.This section includes the names of all active insurance providers for the patient. Insurance Type of Plan Start of End of Group Member Insurance Policy P atient's Provider Coverage Name Policy Policy Number ID Provider's Winters's Relationship Coverage Coverage Telephone Name to Policy Number Winters [facility] MEDICARE MEDEX Jan 16, [id number] [phone] PAT[address] SUPPLEMEN HEARI 2014 10 [id number] ,RJ JOHNSON AND ELLEN [facility] MEDICARE MEDEX Jan 16, [id number] [phone] PATIENT MASS SUPPLEMEN HEARI 2013 10 [id number] ,RJ J[facility]ON AND MEDICARE MEDICARE PART Jan 16, PART A [id number] PATIENT (WNR) (M) A 2013 00 ,RJ MEDICARE MEDICARE PART Jan 16, PART B [id number] PATIENT (WNR) (M) B 2013 EK 00 ,RJ MEDICARE MEDICARE PART Jan 16, PART A [id number] PATIENT (WNR) (M) A 2013 4 ,RJ MEDICARE MEDICARE PART Jan 16, PART B [id number] ANNETTE JENKINS PATIENT (WNR) (M) B 2013 [id number] ,JR MEDICARE MEDICARE PART Jan 16, PART A [id number] ANNETTE JENKINS PATIENT (WNR) (M) A [id number] 00 ,RJ MEDICARE MEDICARE PART Jan 16, PART B [id number] [phone] ANNETTE JENKINS PATIENT (WNR) (M) B 2013 ,RJ Selected Encounter This section includes the information on record at [place] for the Encounter. Date/Time Encounter Type Encounter Description Reason Provider Source Jan 15, 2022 01:58 Outpatient Encounter TELEPHONE TRIAGE PM IHE Encounter Template Text not used by [place] Plan of Treatment: Future Appointments (+ 6 months) and Future Tests (+/- 45 days) The Plan of Treatment section includes future care activities for the patient from all [place] treatmentfacilities. This section includes future appointments and future orders which are active, pending orscheduled.Future Appointments This section includes appointments that were scheduled to occur 6 months from the date of the Encounter, up to a maximum of 20 appointments. The data comes from all [place] treatment facilities. Appointment Date/Time Appointment Type Appointment Facili ty Name Apr 23, 2022 09:00 AM AMBULATORY - MEDICINE [facility] May 23, 2022 10:00 AM AMBULATORY MEDICINE [facility] Social History: Smoking Status (Most current) and Tobacco Use (All prior to encounter date) This section includes the most current, and the historical, smoking and tobacco-related health factors from the [place] facility where the Encounter took place.Current Smoking Status This section includes the most current smoking, or tobacco-related health factor, from the [place] facility where the Encounter took place. Date/Time Current Smoking Status Comment Facility March 24, 2021 10:00 AM VA-TOBACCO USER SOME DAYS [facility] Tobacco Use History This section includes a history of the smoking, or tobacco- related health factors, that were collected on or before the date of the Encounter. The data comes from the [place] facility where the Encounter took place. 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 USE GREASER AND OILER NO [facility] [place] [facility] March 24, 2021 10:00 AM VA-TOBACCO USE MED NO [facility] [place] [facility] March 24, 2021 10:00 AM VA-TOBACCO USER SOME DAYS [facility] [place] [facility] Dec 20, 2019 11:46 AM VA-TOBACCO USE 5 TO 15 YEARS [facility] [place] [facility] Dec 20, 2019 11:46 AM VA-TOBACCO USE ADVICE [facility] [place] [facility] Dec 20, 2019 11:46 AM VA-TOBACCO USE GREASER AND OILER YES [facility] [place] [facility] Dec 20, 2019 11:46 AM VA-TOBACCO USE MED NO [facility] [place] [facility] Dec 20, 2019 11:46 AM VA-TOBACCO USE WI 30 MIN OF [facility] [place] [facility] Dec 20, 2019 11:46 AM VA-TOBACCO USER SOME DAYS [facility] [place] [facility] Dec 03, 2018 12:20 PM VA-TOBACCO USE 30 YEARS OR [facility] [place] [facility] Dec 03, 2018 12:20 PM VA-TOBACCO USE ADVICE [facility] [place] [facility] Dec 03, 2018 12:20 PM VA-TOBACCO USE GREASER AND OILER NO [facility] [place] [facility] Dec 03, 2018 12:20 PM VA-TOBACCO USE MED NO [facility] [place] [facility] Dec 03, 2018 12:20 PM VA-TOBACCO USE WI 30 MIN OF [facility] [place] [facility] Dec 03, 2018 12:20 PM VA-TOBACCO USER EVERY DAY [facility] [place] [facility] Encounter Notes: All associated encounter notes This section contains the clinical notes associated to the Encounter. Date/Time Encounter Note(s) Provider Source Jan 15, 2022 01:58 PM TELEPHONE ENCOUNTER NOTE: BEBE GUTIERREZ [facility] LOCAL TITLE: VISN 1 CCC MED [place]AL [place] [facility] STANDARD TITLE: TELEPHONE ENCOUNTER NOTE DATE OF NOTE: JAN 15, 2022@13:58:32 ENTRY DATE: JAN 15, 2022@13:59:11 AUTHOR: BEBE GUTIERREZ EXP COSIGNER: URGENCY: STATUS: COMPLETED The patient, RJ OCAMPO ([id number]) Ph one: [phone] called the call center. The following identifiers were used to verify th is patient: . SSN. Contact Type of call: PHARMACY. Caller Response: ADM CALL RESOLVED Caller Area: [facility] Provider Info: [facility] ([id number]) PACT: NO PACT 7 (Focus: Primary Care Only) Primary Care Provider: RAHEEL TRIPLETT PH ONE:[phone] Telephone Answerer: ALYSSIA DOWNEY PHONE :[phone] Clinical Associate: REJI SAMUEL PHONE:[phone] Fire Safety Manager: SHERRIE ORTIZ PACT Clinical Pharmacist: BRAYDEN MAYES PHONE:[phone] Clinical POC: Telephone Answerer ALYSSIA DOWNEY PHONE:[phone] Administrative POC: Fire Safety Manager SHERRIE ORTIZ Author: BEBE GUTIERREZ Comments: RENEW/MAIL Imported Information: Medications : LEVOTHYROXINE NA (SYNTHROID) 25MCG TAB Prescription #:[id number] Prescribing Physician: RAHEEL VELÁSQUEZ (NURSE PRACTITIO) on 01/12/2021 10:53 Frequency/Dosage: 0.025MG ORAL QAMAC Evaluation/Management Code: HC PRO PHONE CALL 5- 10 MIN ([phone]). Starting at: 01/15/2022 @ 1:58:32 PM Ending at: 01/15/2022 @ 1:58:56 PM Length: 0 minutes. Chief Complaint: Not applicable to call. Class Code: Other specified counseling. Patient's Email Address: [email or web address] /prince/ BEBE GUTIERREZ ADVANCED OR RN Signed: 01/15/2022 13:59 Receipt Acknowledged By: 01/15/2022 14:08 /prince/ ALYSSIA DOWNEY RN MSN REGISTERED NURSE 01/15/2022 14:09 /es/ Reji Samuel, Health Techni jackie SOLAR INSTALLATION HELPER,PRIMARY CARE
--- OUTSIDE RECORDS SUMMARY | 2022-10-01 09:17 | XMS_ITS | Encounter Summary ---
:1950 Author Organization [facility] rs Address [address] [place] [address] Support Name Relationship Address Phone JOSE OCAMPO Unavailable [address] [place] [address] JOSE OCAMPO Unavailable [address] [place] [address] Insurance Providers: All historical and current Section [...] Telephone Name to Policy Number [place] Jan 16, [id number] [phone] PATIENT SUPPLEMEN HEARI 2014 10 [id number] ,RJ JOHNSON AND ELLEN [facility] MEDICARE MEDEX Jan 16, [id number] [phone] PATIENT MASS SUPPLEMEN HEARI 2013 10 [id number] ,RJ JOHNSON AND MEDICARE MEDICARE PART Jan 16, PART A [id number] [phone] PATIENT (WNR) (M) A 2013 EK 00 ,RJ MEDICARE MEDICARE PART Jan 16, PART B [id number] [id number] PATIENT (WNR) (M) B 2013 EK 00 ,RJ MEDICARE MEDICARE PART Jan 16, PART A [id number] PATIENT (WNR) (M) A 2013 4 ,RJ MEDICARE MEDICARE PART Jan 16, PART B [id number] [id number] PATIENT (WNR) (M) B 2013 [id number] ,RJ MEDICARE MEDICARE PART Jan 16, PART A [id number] [phone] PATIENT (WNR) (M) A 2013A 00 ,RJ MEDICARE MEDICARE PART Jan 16, PART B [id number] [phone] PATIENT (WNR) (M) B 2013 ,RJ Selected Encounter This section includes the information on record at [place] for the Encounter. Date/Time Encounter Type Encounter Description Reason Provider Source May 25, 2022 12:00 Outpatient Encounter EVENT (HISTORICAL) AM IHE Encounter Template Text not used by [place] Plan of Treatment: Future Appointments (+ 6 months) and Future Tests (+/- 45 days) The Plan of Treatment section includes future care activities for the patient from all [place] treatmentfacilities. This section includes future appointments and future orders which are active, pending orscheduled.Future Appointments This section includes appointments that were scheduled to occur 6 months from the date of the Encounter, up to a maximum of 20 appointments. The data comes from all [place] treatment facilities. Appointment Date/Time Appointment Type Appointment Facili ty Name Nov 22, 2022 10:00 AM AMBULATORY - MEDICINE [facility] [place] [facility] Active, Pending, [...] the Encounter. The data comes from all [place] treatment facilities. Test Date/Time Test Type Test Details Facility Name Apr 20, 2022 07:31 AM Consult Order COMMUNITY CARE-PULMONARY [facility] [place] [facility] [place] [facility] Lab Results: +/- 30 days of the encounter This section includes the Chemistry and Hematology Lab Results on record with [place] for the patient. Radiology Reports and Pathology Reports are provided separately, in subsequent sections.Lab Results This section contains the Chemistry/Hematology Results that were resulted 30 days before or 30 daysafter the date of the Encounter. Date/Time Source Result Type Result - Unit Interpretation Reference Range Comment May 23, 2022 [facility] THYROID T4 FREE(FT4) Specimen T ype: SERUM 10:33 AM [place] [facility] No comment enter ed. Ordering Provid er: RAHEEL TRIPLETT Report Released Date/Time: May 14, 2022 12:00 PM Reporting Lab: [facility] [place] [facility] [address] [facility] [address] Performing Lab: [facility] [place] [facility] [address] [facility] [facility] [address] THYROID T4 FREE(FT4) 0.93 0.6-1.6 May 23, 2022 10:33 AM [facility] [place] [facility] Specimen Type: SERUM [facility] No comment enter ed. Ordering Provid er: RAHEEL TRIPLETT Report Released Date/Time: May 14, 2022 12:00 PM Reporting Lab: [facility] [place] [facility] [address] [facility] [address] Performing Lab: [facility] [place] [facility] [address] [facility] [address] TSH 5.56 H 0.35-5.00 May 23, 2022 [facility] HEMOGLOBIN A1C Specimen Type: BLOOD 10:33 AM [place] [facility] PANEL Comment: Values obtained from A1C measurements can vary. For typical A1C assays, a reported value of 7.0 could actually be between 6.72 and 7.28 if measured by a reference method. A reported value of 9 .0 could actuall y be between 8.73 and 9.27. Ref: http://www.ngsp.org/CAPdata.asp Ordering Provid er: RAHEEL TRIPLETT Report Released Date/Time: May 14, 2022 12:00 PM Reporting Lab: [facility] [place] [facility] [address] [facility] [address] Performing Lab: [facility] [place] [facility] [address] [facility] [address] HEMOGLOBIN A1C 5.1 4.0-5.6 May 23, 2022 10:33 [facility] LIVER FUNCTION Specimen Typ e: SERUM AM [place] [facility] No comment enter ed. Ordering Provid er: RAHEEL TRIPLETT Report Released Date/Time: May 14, 2022 12:00 PM Reporting Lab: [facility] [place] [facility] [address] [facility] [address] Performing Lab: [facility] [address] [facility] [address] PROTEIN,TOTAL 7.3 6.0-8.3 ALBUMIN 3.8 3.5-5.0 ALKALINE PHOSPHATASE 41 40-150 AST 14 5-34 ALT 9 <6-55 BILIRUBIN, TOTAL 0.4 0.2-1.2 May 23, 2022 [facility] PT & INR (PROTIME) Specimen Typ e: PLASMA 10:33 AM [place] [facility] No comment enter ed. Ordering Provid er: RAHEEL TRIPLETT Report Released Date/Time: May 14, 2022 12:00 PM Reporting Lab: [facility] [address] [facility] [address] Performing Lab: [facility] [address] [facility] [address] INR 1.2 PROTIME 13.9 H 10.0-13.1 May 23, 2022 [facility] CBC AND DIFF Specimen Type: BLOOD 10:33 AM [place] [facility] (AUTO) No comment enter ed. Ordering Provid er: RAHEEL TRIPLETT Report Released Date/Time: May 14, 2022 12:00 PM Reporting Lab: [facility] [address] [facility] [address] Performing Lab: [facility] [address] [facility] [address] WBC 8.15 4.50-11.00 RBC 4.51 4.23-5.66 HGB 13.2 12.8-17 HCT 41.3 39.2-50.4 MCV 91.6 82-99 MCHC 32.0 30.8-35.1 PLT 237 140-360 RDW-CV 12.9 12.0-16.0 Pitkin, Abs 0.56 0.30-1.10 MCH 29.3 26.2-32.6 Neut % 74.7 Lymph % 11.7 Pitkin % 6.9 Eos % 5.8 Baso % 0.5 Neut, Abs 6.10 2.20-7.60 Lymph, Abs 0.95 L 1.00-3.20 Eos, Abs 0.47 H 0.03-0.44 Baso, Abs 0.04 0.01-0.13 Immature Gran % 0.4 Immature Gran, Abs 0.03 0.00-0.06 May 23, 2022 [facility] LIPID PANEL, NON Specimen Type: SERUM 10:33 AM [place] [facility] FASTING No comment enter ed. Ordering Provid er: RAHEEL TRIPLETT Report Released Date/Time: May 23, 2022 10:20 AM Reporting Lab: [facility] [address] [facility] [address] Performing Lab: [facility] [address] [facility] [address] CHOLESTEROL 243 H <7-199 TRIGLYCERIDE 123 0-150 LDL calculated 178 H 0-129 CHOL/HDL 6.1 HDL CHOLESTEROL 40 40-60 May 23, 2022 [facility] BASIC METABOLIC PANEL Specimen Type: SERUM 10:33 AM [place] [facility] (non-fasting) No comment enter ed. Ordering Provid er: RAHEEL TRIPLETT Report Released Date/Time: May 23, 2022 10:20 AM Reporting Lab: [facility] [address] [facility] [address] Performing Lab: [facility]ITAL[facility] [address] [facility] [address] UREA NITROGEN 20 7-25 GLUCOSE 121 H 65-100 SODIUM 136 135-145 POTASSIUM 4.7 3.5-5.0 CHLORIDE 103 100-110 CO2 23 20-30 CREATININE, Serum 1.21 0.50-1.40 eGFR(CKD-EPI 2020) 64 >60 Social History: Smoking Status (Most current) and Tobacco Use (All prior to encounter date) This section includes the most current, and the historical, smoking and tobacco-related health factors from the [facility] where the Encounter took place.Current Smoking Status This section includes the most current smoking, or tobacco-related health factor, from the [place] facility where the Encounter took place. Date/Time Current Smoking Status Comment Facility May 23, 2022 10:00 AM VA-TOBACCO FORMER USER [facility] [place] [facility] Tobacco Use History This section includes a history of the smoking, or tobacco- related health factors, that were collected on or before the date of the Encounter. The data comes from the [facility] where the Encounter took place. 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 NO [facility] [place] [facility] March 24, 2021 10:00 AM VA-TOBACCO USE MED NO [facility] [place] [facility] March 24, 2021 10:00 AM VA-TOBACCO USER SOME DAYS [facility] [place] [facility] Dec 20, 2019 11:46 AM VA-TOBACCO USE 5 TO 15 YEARS [facility] [place] [facility] Dec 20, 2019 11:46 AM VA-TOBACCO USE ADVICE [facility] [place] [facility] Dec 20, 2019 11:46 AM VA-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 USE 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 ASSISTANT YES [facility] [place] [facility] Dec 20, 2019 11:46 AM VA-TOBACCO USE MED NO [facility] [place] [facility] Dec 20, 2019 11:46 AM VA-TOBACCO USE WI 30 MIN OF [facility] [place] [facility] Dec 20, 2019 11:46 AM VA-TOBACCO USER SOME DAYS [facility] [place] [facility] Dec 03, 2018 12:20 PM VA-TOBACCO USE 30 YEARS OR [facility] [place] [facility] Dec 03, 2018 12:20 PM VA-TOBACCO USE ADVICE [facility] [place] [facility] Dec 03, 2018 12:20 PM VA-TOBACCO USE ENDODONTIC ASSISTANT NO [facility] [place] [facility] Dec 03, 2018 12:20 PM VA-TOBACCO USE MED NO [facility] [place] [facility] Dec 03, 2018 12:20 PM VA-TOBACCO USE [place] 30 MIN OF [facility] [place] [facility] Dec 03, 2018 12:20 PM VA-TOBACCO USER EVERY DAY [facility] [place] [facility] Encounter Notes: All associated encounter notes This section contains the clinical notes associated to the Encounter. Date/Time Encounter Note(s) Provider Source May 25, 2022 12:00 AM NONVA DIAGNOSTIC STUDY REPORT: [facility] LOCAL TITLE: NON-VA DIAGNOSTICS [place] [facility] STANDARD TITLE: NONVA DIAGNOSTIC STUDY REPORT DATE OF NOTE: MAY 25, 2022 ENTRY DATE: JUN 15 022@10:15:47 AUTHOR: KARIN PANG COSIGNER: URGENCY: STATUS: COMPLETED VistA Imaging - Scanned Document SCANNED DOCUMENT SIGNATURE NOT REQUIRED Electronically Filed: 06/15/2022 by: LOVE PANG Rheumatology Nurse
--- OUTSIDE RECORDS SUMMARY | 2022-10-01 09:17 | XMS_ITS | Encounter Summary ---
:1950 Author Organization [facility] rs Address [address] [place] [address] Support Name Relationship Address Phone JOSE OCAMPO Unavailable [address] [place] [address] JOSE OCAMPO Unavailable [address] [place] [address] Insurance Providers: All historical and current Section [...] Telephone Name to Policy Number [place] Jan 16, [id number] [phone] PAT[address] SUPPLEMEN HEARI 2014 10 [id number] ,[facility] MEDICARE MEDEX Jan 16, [id number] [phone] PATIENT MASS SUPPLEMEN HEARI 2013 10 [id number] ,RJ J[facility] AND MEDICARE MEDICARE PART Jan 16, PART A [id number] PATIENT (WNR) (M) A 2013 EK 00 ,RJ MEDICARE MEDICARE PART Jan 16, PART B [id number] PATIENT (WNR) (M) B 2013 EK 00 ,RJ MEDICARE MEDICARE PART Jan 16, PART A [id number] [phone] PATIENT (WNR) (M) A 2013 4 ,RJ MEDICARE MEDICARE PART Jan 16, PART B [id number] [id number] PATIENT (WNR) (M) B 2013 [id number] ,RJ MEDICARE MEDICARE PART Jan 16, PART A [id number] PATIENT (WNR) (M) A [id number] 00 ,RJ MEDICARE MEDICARE PART Jan 16, PART B [id number] [phone] PATIENT (WNR) (M) B 2013 ,RJ Selected Encounter This section includes the information on record at OR for the Encounter. Date/Time Encounter Type Encounter Description Reason Provider Source May 24, 2022 12:00 Outpatient Encounter EVENT (HISTORICAL) AM IHE Encounter Template Text not used by OR Plan of Treatment: Future Appointments (+ 6 months) and Future Tests (+/- 45 days) The Plan of Treatment section includes future care activities for the patient from all [place] treatmentfacilities. This section includes future appointments and future orders which are active, pending orscheduled.Future Appointments This section includes appointments that were scheduled to occur 6 months from the date of the Encounter, up to a maximum of 20 appointments. The data comes from all [place] treatment facilities. Appointment Date/Time Appointment Type Appointment Facili ty Name Nov 22, 2022 10:00 AM AMBULATORY - MEDICINE [place] [facility] [place] [facility] Active, Pending, [...] the Encounter. The data comes from all [place] treatment facilities. Test Date/Time Test Type Test Details Facility Name Apr 20, 2022 07:31 AM Consult Order COMMUNITY CARE-PULMONARY V A [facility] Cons [employer] [place] [facility] Lab Results: +/- 30 days of the encounter This section includes the Chemistry and Hematology Lab Results on record with OR for the patient. Radiology Reports and Pathology Reports are provided separately, in subsequent sections.Lab Results This section contains the Chemistry/Hematology Results that were resulted 30 days before or 30 daysafter the date of the Encounter. Date/Time Source Result Type Result - Unit Interpretation Reference Range Comment May 23, 2022 [place] [facility] THYROID T4 FREE(FT4) Specimen T ype: SERUM 10:33 AM [place] [facility] No comment enter ed. Ordering Provid er: RAHEEL TRIPLETT Report Released Date/Time: May 14, 2022 12:00 PM Reporting Lab: [place] [facility] [place] [facility] [address] [address] Performing Lab: [place] [facility] [place] [facility] [address] [address] THYROID T4 FREE(FT4) 0.93 0.6-1.6 May 23, 2022 10:33 AM [facility] [place] [facility] Specimen Type: [facility] No comment enter ed. Ordering Provid er: RAHEEL TRIPLETT Report Released Date/Time: May 14, 2022 12:00 PM Reporting Lab: [place] [facility] [place] [facility] [address] [address] Performing Lab: [facility] [place] [facility] [address] [address] TSH 5.56 H 0.35-5.00 May 23, 2022 10:33 [facility] LIVER FUNCTION Specimen Typ e: SERUM AM [place] [facility] No comment enter ed. Ordering Provid er: RAHEEL TRIPLETT Report Released Date/Time: May 14, 2022 12:00 PM Reporting Lab: [facility] [place] [facility] [address] [address] Performing Lab: [place] [facility] [place] [facility] [address] [address] PROTEIN,TOTAL 7.3 6.0-8.3 ALBUMIN 3.8 3.5-5.0 ALKALINE PHOSPHATASE 41 40-150 AST 14 5-34 ALT 9 <6-55 BILIRUBIN, TOTAL 0.4 0.2-1.2 May 23, 2022 [place] [facility] HEMOGLOBIN A1C Specimen Type: BLOOD 10:33 AM [place] [facility] PANEL Comment: Values obtained from A1C measurements can vary. For typical A1C assays, a reported value of 7.0 could actually be between 6.72 and 7.28 if measured by a reference method. A reported value of 9 .0 could actuall y be between 8.73 and 9.27. Ref: http://www.ngsp.org/CAPdata.asp Ordering Provid er: RAHEEL TRIPLETT Report Released Date/Time: May 14, 2022 12:00 PM Reporting Lab: [facility] [place] [facility] [address] [address] Performing Lab: [facility] [place] [facility] [address] [address] HEMOGLOBIN A1C 5.1 4.0-5.6 May 23, 2022 [facility] PT & INR (PROTIME) Specimen Typ e: PLASMA 10:33 AM [place] [facility] No comment enter ed. Ordering Provid er: RAHEEL TRIPLETT Report Released Date/Time: May 14, 2022 12:00 PM Reporting Lab: [facility] [place] [facility] [address] [address] Performing Lab: [facility] [address] [address] INR 1.2 PROTIME 13.9 H 10.0-13.1 May 23, 2022 [facility] CBC AND DIFF Specimen Type: BLOOD 10:33 AM [place] [facility] (AUTO) No comment enter ed. Ordering Provid er: RAHEEL TRIPLETT Report Released Date/Time: May 14, 2022 12:00 PM Reporting Lab: [facility] [place] [facility] [address] [address] Performing Lab: [facility] [place] [facility] [address] [address] WBC 8.15 4.50-11.00 RBC 4.51 4.23-5.66 HGB 13.2 12.8-17 HCT 41.3 39.2-50.4 MCV 91.6 82-99 MCHC 32.0 30.8-35.1 PLT 237 140-360 RDW-CV 12.9 12.0-16.0 [place], Abs 0.56 0.30-1.10 MCH 29.3 26.2-32.6 Neut % 74.7 Lymph % 11.7 [place] % 6.9 Eos % 5.8 Baso % 0.5 Neut, Abs 6.10 2.20-7.60 Lymph, Abs 0.95 L 1.00-3.20 Eos, Abs 0.47 H 0.03-0.44 Baso, Abs 0.04 0.01-0.13 Immature Gran % 0.4 Immature Gran, Abs 0.03 0.00-0.06 May 23, 2022 [facility] LIPID PANEL, NON Specimen Type: SERUM 10:33 AM [place] [facility] FASTING No comment enter ed. Ordering Provid er: RAHEEL TRIPLETT Report Released Date/Time: May 23, 2022 10:20 AM Reporting Lab: [facility] [address] [address] Performing Lab: [facility] [address] [address] CHOLESTEROL 243 H <7-199 TRIGLYCERIDE 123 0-150 LDL calculated 178 H 0-129 CHOL/HDL 6.1 HDL CHOLESTEROL 40 40-60 May 23, 2022 [facility] BASIC METABOLIC PANEL Specimen Type: SERUM 10:33 AM [place] [facility] (non-fasting) No comment enter ed. Ordering Provid er: RAHEEL TRIPLETT Report Released Date/Time: May 23, 2022 10:20 AM Reporting Lab: [facility] [address] [address] Performing Lab: [facility] [address] [address] UREA NITROGEN 20 7-25 GLUCOSE 121 H 65-100 SODIUM 136 135-145 POTASSIUM 4.7 3.5-5.0 CHLORIDE 103 100-110 CO2 23 20-30 CREATININE, Serum 1.21 0.50-1.40 eGFR(CKD-EPI 2020) 64 >60 Social History: Smoking Status (Most current) and Tobacco Use (All prior to encounter date) This section includes the most current, and the historical, smoking and tobacco-related health factors from the [facility] where the Encounter took place.Current Smoking Status This section includes the most current smoking, or tobacco-related health factor, from the [place] facility where the Encounter took place. Date/Time Current Smoking Status Comment Facility May 23, 2022 10:00 AM VA-TOBACCO FORMER USER [facility] [place] [facility] Tobacco Use History This section includes a history of the smoking, or tobacco- related health factors, that were collected on or before the date of the Encounter. The data comes from the [facility] where the Encounter took place. 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 NO [facility] [place] [facility] March 24, 2021 10:00 AM VA-TOBACCO USE MED NO [facility] C [facility] [place] [facility] March 24, 2021 10:00 AM VA-TOBACCO USER SOME DAYS [facility] [place] [facility] Dec 20, 2019 11:46 AM VA-TOBACCO USE 5 TO 15 YEARS [facility] [place] [facility] Dec 20, 2019 11:46 AM VA-TOBACCO USE ADVICE VA C [facility] [place] [facility] Dec 20, 2019 11:46 AM VA-TOBACCO USE TECHNOLOGY METHODOLOGY CONSULTANT YES [facility] [place] [facility] Dec 20, 2019 11:46 AM VA-TOBACCO USE MED NO [facility] C [facility] [place] [facility] Dec 20, 2019 11:46 AM VA-TOBACCO USE WI 30 MIN OF [facility] [place] [facility] Dec 20, 2019 11:46 AM VA-TOBACCO USER SOME DAYS [facility] [place] [facility] Dec 03, 2018 12:20 PM VA-TOBACCO USE 30 YEARS OR [facility] [place] [facility] Dec 03, 2018 12:20 PM VA-TOBACCO USE ADVICE VA C [facility] [place] [facility] Dec 03, 2018 12:20 PM VA-TOBACCO USE TECHNOLOGY METHODOLOGY CONSULTANT NO [facility] [place] [facility] Dec 03, 2018 12:20 PM VA-TOBACCO USE MED NO VA C [facility] [place] [facility] Dec 03, 2018 12:20 PM VA-TOBACCO USE WI 30 MIN OF VA [facility] [place] [facility] Dec 03, 2018 12:20 PM VA-TOBACCO USER EVERY DAY [facility] Encounter Notes: All associated encounter notes This section contains the clinical notes associated to the Encounter. Date/Time Encounter Note(s) Provider Source May 24, 2022 12:00 AM NONVA NOTE: [facility] LOCAL TITLE: NON-VA OUTPATIENT NOTES [facility] STANDARD TITLE: NONVA NOTE DATE OF NOTE: MAY 24, 2022 ENTRY DATE: JUN 15 022@10:20:40 AUTHOR: KARIN PANG COSIGNER: URGENCY: STATUS: COMPLETED VistA Imaging - Scanned Document SCANNED DOCUMENT SIGNATURE NOT REQUIRED Electronically Filed: 06/15/2022 by: LOVE PANG Concrete Puddler
--- OUTSIDE RECORDS SUMMARY | 2022-10-01 09:17 | XMS_ITS | Encounter Summary ---
:1950 Author Organization [facility] rs Address [address] [place] [address] Support Name Relationship Address Phone JOSE OCAMPO Unavailable [address] [place] [address] JOSE OCAMPO Unavailable [address] [place] [address] Insurance Providers: All historical and current Section [...] [place] Jan 16, [id number] [phone] SUPPLEMEN HEARI 2014 10 [id number] ,[facility] MEDICARE MEDEX Jan 16, [id number] [phone] PATIENT MASS SUPPLEMEN HEARI 2013 10 [id number] ,RJ JOHNSON AND MEDICARE MEDICARE PART Jan 16, PART A [id number] PATIENT (WNR) (M) A 2013 00 ,RJ MEDICARE MEDICARE PART Jan 16, PART B [id number] [phone] PATIENT (WNR) (M) B 2013 EK 00 ,RJ MEDICARE MEDICARE PART Jan 16, PART A [id number] PATIENT (WNR) (M) A 2013 4 ,RJ MEDICARE MEDICARE PART Jan 16, PART B [id number] [id number] PATIENT (WNR) (M) B 2013 [id number] ,RJ MEDICARE MEDICARE PART Jan 16, PART A [id number] [phone] PATIENT (WNR) (M) A 2013 [id number] ,RJ MEDICARE MEDICARE PART Jan 16, PART B [id number] PATIENT (WNR) (M) B 2013 ,RJ Selected Encounter This section includes the information on record at [place] for the Encounter. Date/Time Encounter Type Encounter Reason Provider Source Description May 31, 2022 09:26 Outpatient PRIMARY JOSH SORIANO AM Encounter CARE/MEDICINE RIO Tea Encounter Template Text not used by [place] [...] 22, 2022 10:00 AM AMBULATORY - MEDICINE [place] [facility] [facility] Active, Pending, and Scheduled Orders This section includes a listing of several types of active, pending, and scheduled orders, including clinic medications orders, diagnostic test orders, procedure orders and consult orders; where the start date of the order is 45 days before the date of the Encounter or 45 days after the date of the Encounter. The data comes from all [place] treatment facilities. Test Date/Time Test Type Test Details Facility Name Apr 20, 2022 07:31 AM Consult Order COMMUNITY CARE-PULMONARY V A CN[facility] W[facility] Cons [place] [employer] [facility] [place] [facility] Lab Results: +/- 30 days [...] Interpretation Reference Range Comment May 23, [address] [facility] WSTRN THYROID T4 FREE(FT4) Specimen T ype: SERUM 10:33 AM [place] [facility] No comment enter ed. Ordering Provid er: RAHEEL TRIPLETT Report Released Date/Time: May 14, 2022 12:00 PM Reporting Lab: [facility] [place] [facility] [address] [address] Performing Lab: [facility] [place] [facility] [address] [facility] [address] THYROID T4 FREE(FT4) 0.93 0.6-1.6 May 23, 2022 10:33 AM [facility] [place] [facility] Specimen Type: [facility]UM [facility] No comment enter ed. Ordering Provid er: RAHEEL TRIPLETT Report Released Date/Time: May 14, 2022 12:00 PM Reporting Lab: [facility] [place] [facility] [address] [address] Performing Lab: [facility] [place] [facility] [address] [address] TSH 5.56 H 0.35-5.00 May 23, 2022 10:33 [facility] LIVER FUNCTION Specimen Typ e: SERUM AM [place] [facility] No comment enter ed. Ordering Provid er: RAHEEL TRIPLETT Report Released Date/Time: May 14, 2022 12:00 PM Reporting Lab: [facility] [place] [facility] [address] [facility] [address] Performing Lab: [place] [facility] [facility] [facility] [address] [address] [address] PROTEIN,TOTAL 7.3 6.0-8.3 ALBUMIN 3.8 3.5-5.0 ALKALINE PHOSPHATASE 41 40-150 AST 14 5-34 ALT 9 <6-55 BILIRUBIN, TOTAL 0.4 0.2-1.2 May 23, 2022 [facility] HEMOGLOBIN A1C Specimen Type: BLOOD 10:33 AM [place] [facility] PANEL Comment: Values obtained from A1C measurements can vary. For typical A1C assays, a reported value of 7.0 could actually be between 6.72 and 7.28 if measured by a reference method. A reported value of 9 .0 could actuall y be between 8.73 and 9.27. Ref: http://www.ngsp.org/CAPdata.asp Ordering Provid er: RAHEEL TRIPLETT Report Released Date/Time: May 14, 2022 12:00 PM Reporting Lab: [facility] [address] [address] Performing Lab: [facility] [address] [address] HEMOGLOBIN A1C 5.1 4.0-5.6 May 23, 2022 [facility] CBC AND DIFF Specimen Type: BLOOD 10:33 AM [place] [facility] (AUTO) No comment enter ed. Ordering Provid er: RAHEEL TRIPLETT Report Released Date/Time: May 14, 2022 12:00 PM Reporting Lab: [facility] [address] [facility] [address] Performing Lab: [facility] [address] [address] [address] WBC 8.15 4.50-11.00 RBC 4.51 4.23-5.66 HGB 13.2 12.8-17 HCT 41.3 39.2-50.4 MCV 91.6 82-99 MCHC 32.0 30.8-35.1 PLT 237 140-360 RDW-CV 12.9 12.0-16.0 [place], Abs 0.56 0.30-1.10 MCH 29.3 26.2-32.6 Neut % 74.7 Lymph % 11.7 [place] % 6.9 Eos % 5.8 Baso % 0.5 Neut, Abs 6.10 2.20-7.60 Lymph, Abs 0.95 L 1.00-3.20 Eos, Abs 0.47 H 0.03-0.44 Baso, Abs 0.04 0.01-0.13 Immature Gran % 0.4 Immature Gran, Abs 0.03 0.00-0.06 May 23, [facility]22 [facility] (PROTIME) Specimen Typ e: PLASMA 10:33 AM [place] [facility] No comment enter ed. Ordering Provid er: RAHEEL TRIPLETT Report Released Date/Time: May 14, 2022 12:00 PM Reporting [facility] [place] [facility] [address] [address] [address] Performing Lab: [facility] [place] [facility] [address] [facility] [address] INR 1.2 PROTIME 13.9 H 10.0-13.1 May 23, 2022 [facility] LIPID PANEL, NON Specimen Type: SERUM 10:33 AM [place] [facility] No comment enter ed. Ordering Provid er: RAHEEL TRIPLETT Report Released Date/Time: May 23, 2022 10:20 AM Reporting Lab[facility] [place] [facility] [address] [facility] [address] Performing Lab: [facility] [place] [facility] [address] [address] [address] CHOLESTEROL 243 H <7-199 TRIGLYCERIDE 123 0-150 LDL calculated 178 H 0-129 CHOL/HDL 6.1 HDL CHOLESTEROL 40 40-60 May 23, 2022 [facility] BASIC METABOLIC PANEL Specimen Type: SERUM 10:33 AM [place] [facility] (non-fasting) No comment enter ed. Ordering Provid er: RAHEEL TRIPLETT Report Released Date/Time: May 23, 2022 10:20 AM Reporting Lab: [facility] [place] [facility] [address] [address] Performing Lab[facility] [place] [facility] [address] [address] [address] UREA NITROGEN 20 7-25 GLUCOSE 121 H [...] VA-TOBACCO FORMER USER [facility] [place] [facility] Tobacco Use History This section includes a history of the smoking, or tobacco- related health factors, that were collected on or before the date of the Encounter. The data comes from the [facility] where the Encounter took place. 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 SCALPER OPERATOR NO [facility] [place] [facility] March 24, 2021 10:00 AM VA-TOBACCO USE MED NO VA C [facility] [place] [facility] March 24, 2021 10:00 AM VA-TOBACCO USER SOME DAYS [facility] [place] [facility] Dec 20, 2019 11:46 AM VA-TOBACCO USE 5 TO 15 YEARS [facility] [place] [facility] Dec 20, 2019 11:46 AM VA-TOBACCO USE ADVICE VA C [facility] [place] [facility] Dec 20, 2019 11:46 AM VA-TOBACCO USE LATHE SCALPER OPERATOR YES [facility] [place] [facility] Dec 20, 2019 11:46 AM VA-TOBACCO USE MED NO VA C [facility] [place] [facility] Dec 20, 2019 11:46 AM VA-TOBACCO USE WI 30 MIN OF VA [facility] [place] [facility] Dec 20, 2019 11:46 AM VA-TOBACCO USER SOME DAYS [facility] [place] [facility] Dec 03, 2018 12:20 PM VA-TOBACCO USE 30 YEARS OR VA [facility] [place] MORE [facility] Dec 03, 2018 12:20 PM VA-TOBACCO USE ADVICE VA C N[facility]L [facility] [place] [facility] Dec 03, 2018 12:20 PM VA-TOBACCO USE LATHE SCALPER OPERATOR NO [facility] [place] [facility] Dec 03, 2018 12:20 PM VA-TOBACCO USE MED NO VA C [facility] [place] [facility] Dec 03, 2018 12:20 PM VA-TOBACCO USE WI 30 MIN OF VA [facility] [place] [facility] Dec 03, 2018 12:20 PM VA-TOBACCO USER EVERY DAY [facility] Encounter Notes: All associated encounter notes This section contains the clinical notes associated to the Encounter. Date/Time Encounter Note(s) Provider Source May 31, 2022 09:26 AM PRIMARY CARE SECURE MESSAGING: GARO SORIANO [place] [facility] LOCAL TITLE: [facility] STANDARD TITLE: PRIMARY CARE SECURE MESSAGING DATE OF NOTE: MAY 31, 2022@09:26 ENTRY DATE: MAY 31, 2022@10:26:10 AUTHOR: JOSH SORIANO EXP COSIGNER: URGENCY: STATUS: COMPLETED PRIMARY CARE SECURE MESSAGING Has ADDENDA * ------Original Message Sent: 05/28/2022 04:36 PM ET From: RJ OCAMPO To: Rc TRIPLETT_PRIMARY CARE_[facility] Subject: Test:Swallow Study Attachments: Swallow Study Details.pdf (121.64 K B), Visit Summary.pdf (148.78 KB)) Here are the note from my test ------Original Message Sent: 05/31/2022 10:26 AM ET From: JOSH SORIANO To: RJ OCAMPO Subject: Test:Swallow Study Freeman, I will forward these to your PCP for review, jaime graves. Sincerely Josh CHEEMA /prince/ JOSH SORIANO RN REGISTERED NURSE Signed: 05/31/2022 10:26 05/31/2022 ADDENDUM STATUS: COMPLETED Vets PDF attachment notes are now in the [employer] medical folder for review. /prince/ SARAH. BO, RN REGISTERED NURSE Signed: 05/31/2022 10:29 Receipt Acknowledged By: * AWAITING SIGNATURE * RAHEEL TRIPLETT
--- OUTSIDE RECORDS SUMMARY | 2022-10-01 09:17 | XMS_ITS ---
:1950 Author Organization [facility] rs Address [address] [place] [id number] Support Name Relationship Address Phone JOSE OCAMPO Unavailable [address] [place] [address] JOSE OCAMPO Unavailable [address] [place] [address] Insurance Providers: All historical and current Section Date Range: From patient's date of to the date document was created.This section includes the names of all active insurance providers for the patient. Insurance Type of Plan Start of End of Group Member Insurance Policy P atient's Provider Coverage Name Policy Policy Number ID Provider's Winters's Relationship Coverage Coverage Telephone Name to Policy Number Winters [facility] MEDICARE MEDEX Jan [id number], [id number] [phone] PAT[address] SUPPLEMEN HEARI 2013 10 [id number] ,RJ [facility] MEDICARE MEDEX Jan 16, [id number] [phone] PATIENT MASS SUPPLEMEN HEARI 2014 10 [id number] ,RJ JOHNSON AND MEDICARE MEDICARE PART Jan 16, PART A [id number] PATIENT (WNR) (M) A 2013 00 ,RJ MEDICARE MEDICARE PART Jan 16, PART B [id number] PATIENT (WNR) (M) B 2013 00 ,RJ MEDICARE MEDICARE PART Jan 16, PART A [id number] PATIENT (WNR) (M) A 2013 4 ,RJ MEDICARE MEDICARE PART Jan 16, PART B [id number] PATIENT (WNR) (M) B 2013 [id number] ,RJ MEDICARE MEDICARE PART Jan 16, PART A [id number] PATIENT (WNR) (M) A 2013 00 ,RJ MEDICARE MEDICARE PART Jan 16, PART B [id number] PATIENT (WNR) (M) B 2013 ,RJ Selected Encounter This section includes the information on record at [place] for the Encounter. Date/Time Encounter Type Encounter Description Reason Provider Source Jun 18, 2022 10:23 Outpatient Encounter ADMIN PAT ACTIVTIES AM (MASNONCT) IHE Encounter Template Text not used by [place] Plan of Treatment: Future Appointments (+ 6 months) and Future Tests (+/- 45 days) The Plan of Treatment section includes future care activities for the patient from all [place] treatmentfacilities. This section includes future appointments and future orders which are active, pending orscheduled.Future Appointments This section includes appointments that were scheduled to occur 6 months from the date of the Encounter, up to a maximum of 20 appointments. The data comes from all [place] treatment facilities. Appointment Date/Time Appointment Type Appointment Facili ty Name Nov 22, 2022 10:00 AM AMBULATORY - [facility] Lab Results: +/- 30 days of the encounter This section includes the Chemistry and Hematology Lab Results on record with [place] for the patient. Radiology Reports and Pathology Reports are provided separately, in subsequent sections.Lab Results This section contains the Chemistry/Hematology Results that were resulted 30 days before or 30 daysafter the date of the Encounter. Date/Time Source Result Type Result - Unit Interpretation Reference Range Comment May 23, 2022 [place] [facility] THYROID T4 FREE(FT4) Specimen T ype: SERUM 10:33 AM [facility] No comment enter ed. Ordering Provid er: RAHEEL TRIPLETT Report Released Date/Time: May 14, 2022 12:00 PM Reporting Lab[facility] [place] [facility] [address] [address] Performing Lab[facility] [address] [address] THYROID T4 FREE(FT4) 0.93 0.6-1.6 May 23, 2022 10:33 AM [facility] [place] TSH Specimen Type: SERUM [facility] No comment enter ed. Ordering Provid er: RAHEEL TRIPLETT Report Released Date/Time: May 14, 2022 12:00 PM Reporting Lab: [facility] [address] [address] Performing Lab: [facility] [address] [address] TSH 5.56 H 0.35-5.00 May 23, 2022 10:33 [facility] LIVER FUNCTION Specimen Typ e: SERUM AM [place] [facility] No comment enter ed. Ordering Provid er: RAHEEL TRIPLETT Report Released Date/Time: May 14, 2022 12:00 PM Reporting Lab: [facility] [address] [address] Performing Lab[facility] [address] [address] PROTEIN,TOTAL 7.3 6.0-8.3 ALBUMIN 3.8 3.5-5.0 ALKALINE PHOSPHATASE 41 40-150 AST 14 5-34 ALT 9 <6-55 BILIRUBIN, TOTAL 0.4 0.2-1.2 May 23, 2022 [facility] HEMOGLOBIN A1C Specimen Type: BLOOD 10:33 AM [facility] PANEL Comment: Values obtained from A1C measurements can vary. For typical A1C assays, a reported value of 7.0 could actually be between 6.72 and 7.28 if measured by a reference method. A reported value of 9 .0 could actuall y be between 8.73 and 9.27. Ref: http://www.ngsp.org/CAPdata.asp Ordering Provid er: RAHEEL TRIPLETT Report Released Date/Time: May 14, 2022 12:00 PM Reporting Lab: [facility] [address] [address] Performing Lab: [facility] [address] [address] HEMOGLOBIN A1C 5.1 4.0-5.6 May 23, 2022 [facility] PT & INR (PROTIME) Specimen Typ e: PLASMA 10:33 AM [facility] No comment enter ed. Ordering Provid er: RAHEEL TRIPLETT Report Released Date/Time: May 14, 2022 12:00 PM Reporting Lab: [facility] [address] [address] Performing Lab: [facility] [address] [address] INR 1.2 PROTIME 13.9 H 10.0-13.1 May 23, 2022 [facility] CBC AND DIFF Specimen Type: BLOOD 10:33 AM [facility] (AUTO) No comment enter ed. Ordering Provid er: RAHEEL TRIPLETT Report Released Date/Time: May 14, 2022 12:00 PM Reporting Lab: [facility] [address] [address] Performing Lab: [facility] [address] [address] WBC 8.15 4.50-11.00 RBC 4.51 4.23-5.66 HGB 13.2 12.8-17 HCT 41.3 39.2-50.4 MCV 91.6 82-99 MCHC 32.0 30.8-35.1 PLT 237 140-360 RDW-CV 12.9 12.0-16.0 Ocean, Abs 0.56 0.30-1.10 MCH 29.3 26.2-32.6 Neut % 74.7 Lymph % 11.7 Ocean % 6.9 Eos % 5.8 Baso % 0.5 Neut, Abs 6.10 2.20-7.60 Lymph, Abs 0.95 L 1.00-3.20 Eos, Abs 0.47 H 0.03-0.44 Baso, Abs 0.04 0.01-0.13 Immature Gran % 0.4 Immature Gran, Abs 0.03 0.00-0.06 May 23, 2022 [facility] LIPID PANEL, NON Specimen Type: SERUM 10:33 AM [facility] FASTING No comment enter ed. Ordering Provid er: RAHEEL TRIPLETT Report Released Date/Time: May 23, 2022 10:20 AM Reporting Lab: [facility] [address] [address] Performing Lab: [facility] [address] [address] CHOLESTEROL 243 H <7-199 TRIGLYCERIDE 123 0-150 LDL calculated 178 H 0-129 CHOL/HDL 6.1 HDL CHOLESTEROL 40 40-60 May 23, 2022 [facility] BASIC METABOLIC PANEL Specimen Type: SERUM 10:33 AM [facility] (non-fasting) No comment enter ed. Ordering Provid er: RAHEEL TRIPLETT Report Released Date/Time: May 23, 2022 10:20 AM Reporting Lab: [facility] [address] [address] Performing Lab: [facility] [address] [address] UREA NITROGEN 20 7-25 GLUCOSE 121 H 65-100 SODIUM 136 135-145 POTASSIUM 4.7 3.5-5.0 CHLORIDE 103 100-110 CO2 23 20-30 CREATININE, Serum 1.21 0.50-1.40 eGFR(CKD-EPI 2020) 64 >60 Social History: Smoking Status (Most current) and Tobacco Use (All prior to encounter date) This section includes the most current, and the historical, smoking and tobacco-related health factors from the [place] facility where the Encounter took place.Current Smoking Status This section includes the most current smoking, or tobacco-related health factor, from the [place] facility where the Encounter took place. Date/Time Current Smoking Status Comment Facility May 23, 2022 10:00 AM VA-TOBACCO FORMER USER [facility] Tobacco Use History This section includes a history of the smoking, or tobacco- related health factors, that were collected on or before the date of the Encounter. The data comes from the [place] facility where the Encounter took place. 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 [facility] [place] [facility] March 24, 2021 10:00 AM VA-TOBACCO USE MED NO [facility] [place] [facility] March 24, 2021 10:00 AM VA-TOBACCO USER SOME DAYS [facility] [place] [facility] Dec 20, 2019 11:46 AM VA-TOBACCO USE 5 TO 15 YEARS [facility] [place] [facility] Dec 20, 2019 11:46 AM VA-TOBACCO USE ADVICE [facility] [place] [facility] Dec 20, 2019 11:46 AM 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 [facility] [place] [facility] Dec 20, 2019 11:46 AM VA-TOBACCO USE MED NO [facility] [place] [facility] Dec 20, 2019 11:46 AM VA-TOBACCO USE WI 30 MIN OF [facility] [place] [facility] Dec 20, 2019 11:46 AM VA-TOBACCO USER SOME DAYS [facility] [place] [facility] Dec 03, 2018 12:20 PM VA-TOBACCO USE 30 YEARS OR [facility] [place] [facility] Dec 03, 2018 12:20 PM VA-TOBACCO USE ADVICE [facility] [place] [facility] Dec 03, 2018 12:20 PM 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 Date/Time Encounter Note(s) Provider Source Jun 18, 2022 10:23 ADMINISTRATIVE NOTE: MALVIN SOMMER [place] [facility] [facility] [address] TITLE: CCC: SCHEDULING ADMINISTRATION [facility] STANDARD TITLE: ADMINISTRATIVE NOTE DATE OF NOTE: JUN 18, 2022@10:23:50 ENTRY DATE: JUN 18, 2022@10:26:08 AUTHOR: MALVIN SOMMER EXP COSIGNER: URGENCY: STATUS: COMPLETED CCC: SCHEDULING ADMINISTRATION Has ADDENDA Type of call: PHARMACY. PCMM Provider Info: LOCAL - [place] [facility] [facility] ([id number]) PACT: NO PACT 7 (Focus: Primary Care Only) Primary Care Provider: RAHEEL TRIPLETT ONE:[phone] Telephone Maintainer: EKY IBARRA PHONE:[phone] Clinical Associate: FLORIN SAMUEL PHONE:[phone] Purchasing Analyst: SHERRIE ORTIZ Clinical POC: Telephone Maintainer KEY IBARRA PHONE:[phone] Administrative POC: Purchasing Analyst SHERRIE ORTIZ *PATIENT called in for RJ OCAMPO ([phone]) . The following identifiers were used to verify th is patient: DOB. NEIL. Contact Caller Response: ADM CALL RESOLVED Caller Area: [place] Comments: Renew and mail Imported Information: Medications ACTIVE: APIXABAN 5MG TAB Prescription #:[id number] Prescribing Physician: RAHEEL TRIPLETT (NURSE PRACTITIO) on 11/20/19 08:07 Frequency/Dosage: 2.5MG ORAL BID Author: MALVIN SOMMER Evaluation/Management Code: HC PRO PHONE CALL 5- 10 MIN ([phone]). Starting at: 06/18/2022 @ 10:23:50 AM Ending at: 06/18/2022 @ 10:25:07 AM Length: 1 minutes. Chief Complaint: Not applicable to call. Class Code: Other specified counseling. /prince/ MALVIN DURAN 1 CCC LEAD AMSA Signed: 06/18/2022 10:26 Receipt Acknowledged By: * AWAITING SIGNATURE * RAHEEL TRIPLETT 06/18/2022 10:35 /prince/ Key Ibarra MSN RN C NL Primary Care RN 06/18/2022 ADDENDUM STATUS: COMPLETED Defer to covering provider for renewal if desire d /prince/ Key Ibarra MSN RN CNL Primary Care RN Signed: 06/18/2022 10:35
--- OUTSIDE RECORDS SUMMARY | 2022-10-01 09:17 | XMS_ITS ---
:1950 Author Organization [facility] Address [address] [place] [id number] Support Name Relationship Address Phone BILL OCAMPO Unavailable [address] [place] [address] BILL OCAMPO Unavailable [address] [place] [address] Insurance Providers: All historical and current Section Date Range: From patient's date of to the date document was created.This section includes the names of all active insurance providers for the patient. Insurance Type of Plan Start of End of Group Member Insurance Policy P atient's Provider Coverage Name Policy Policy Number ID Provider's Winters's Relationship Coverage Coverage Telephone Name to Policy Number Winters [facility] MED[facility] MEDEX Jan 16, [id number] [phone] PAT[address] SUPPLEMEN HEARI 2013 10 [id number] ,RJ [facility] MEDICARE MEDEX Jan 16, [id number] [phone] PATIENT MASS SUPPLEMEN HEARI 2013 10 [id number] ,RJ JOHNSON AND MEDICARE MEDICARE PART Jan 16, PART A [id number] PATIENT (WNR) (M) A 2013 00 ,RJ MEDICARE MEDICARE PART Jan 16, PART B [id number] PATIENT (WNR) (M) B 2013 00 ,RJ MEDICARE MEDICARE PART Jan 16, PART A [id number] PATIENT (WNR) (M) A 2013 4 ,RJ MEDICARE MEDICARE PART Jan 16, PART B [id number] PATIENT (WNR) (M) B 2013 [id number] ,RJ MEDICARE MEDICARE PART Jan 16, PART A [id number] PATIENT (WNR) (M) A 2013 [id number] ,RJ MEDICARE MEDICARE PART Jan 16, PART B [id number] PATIENT (WNR) (M) B 2013A ,RJ Selected Encounter This section includes the information on record at PR for the Encounter. Date/Time Encounter Type Encounter Reason Provider Source Description May 23, 2022 OFFICE O/P EST PRIMARY ICD-10-CM PATI MILAN 10:00 AM MOD 30-39 MIN CARE/MEDICINE Z74.09 Other AM J reduced mobility with Provider Comments: Reduced mobility (SCT [id number]) IHE Encounter Template Text not used by PR Assessments - Encounter Diagnoses This section includes the primary and secondary diagnoses documented for the Encounter. 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 May 23, 2022 SECONDARY Chronic PATI MILAN PR CNT WSTR N 10:42 AM obstructive AM [place] [facility] pulmonary disease, unspecified May 23, 2022 SECONDARY Hyperlipidemia, PATI MILAN [facility] W STRN 10:42 AM unspecified [facility] May 23, 2022 SECONDARY Hypothyroidism, PATI MILAN [facility] W STRN 10:42 AM unspecified AM J [place] [facility] May 23, 2022 SECONDARY Personal history [facility]42 AM of malignant AM J [place] [facility] neoplasm, unspecified Plan of Treatment: Future Appointments (+ 6 months) and Future Tests (+/- 45 days) The Plan of Treatment section includes future care activities for the patient from all PR treatmentfacilities. This section includes future appointments and future orders which are active, pending orscheduled.Future Appointments This section includes appointments that were scheduled to occur 6 months from the date of the Encounter, up to a maximum of 20 appointments. The data comes from all PR treatment facilities. Appointment Date/Time Appointment Type Appointment Facili ty Name Nov 22, 2022 10:00 AM AMBULATORY - MEDICINE [place] [facility] [place] [facility] Active, Pending, and Scheduled Orders This section includes a listing of several types of active, pending, and scheduled orders, including clinic medications orders, diagnostic test orders, procedure orders and consult orders; where the start date of the order is 45 days before the date of the Encounter or 45 days after the date of the Encounter. The data comes from all PR treatment facilities. Test Date/Time Test Type Test Details Facility Name Apr 20, 2022 07:31 AM Consult Order COMMUNITY CARE-PULMONARY V A CNTRL WSTRN Cons Court Recorder's Choice [place] [facility] Lab Results: +/- 30 days of the encounter This section includes the Chemistry and Hematology Lab Results on record with PR for the patient. Radiology Reports and Pathology Reports are provided separately, in subsequent sections.Lab Results This section contains the Chemistry/Hematology Results that were resulted 30 days before or 30 daysafter the date of the Encounter. Date/Time Source Result Type Result - Unit Interpretation Reference Range Comment May 23, 2022 PR [facility] WSTRN THYROID T4 FREE(FT4) Specimen T ype: SERUM 10:33 AM [facility] [facility] No comment enter ed. Ordering Provid er: RAHEEL MILAN Report Released Date/Time: May 14, 2022 12:00 PM Reporting Lab: PR [facility] [place] [facility] [address] [facility] [address] Performing Lab: [facility] W[facility] [place] [facility] [address] [facility] [address] THYROID T4 FREE(FT4) 0.93 0.6-1.6 May 23, 2022 10:33 AM PR [facility] WSTRN [place] [facility] Specimen Type: [facility] No comment enter ed. Ordering Provid er: RAHEEL MILAN Report Released Date/Time: May 14, 2022 12:00 PM Reporting Lab: [facility] [address] [facility] [address] Performing Lab: [facility] [address] [facility] [address] TSH 5.56 H 0.35-5.00 May 23, 2022 10:33 [facility] LIVER FUNCTION Specimen Typ e: SERUM [facility] No comment enter ed. Ordering Provid er: RAHEEL MILAN Report Released Date/Time: May 14, 2022 12:00 PM Reporting Lab: [facility] [address] [facility] [address] Performing Lab: [facility] [address] [facility] [address] PROTEIN,TOTAL 7.3 6.0-8.3 ALBUMIN 3.8 3.5-5.0 ALKALINE PHOSPHATASE 41 40-150 AST 14 5-34 ALT 9 <6-55 BILIRUBIN, TOTAL 0.4 0.2-1.2 May 23, 2022 [facility] HEMOGLOBIN A1C Specimen Type: BLOOD 10:33 AM [facility] PANEL Comment: Values obtained from A1C measurements can vary. For typical A1C assays, a reported value of 7.0 could actually be between 6.72 and 7.28 if measured by a reference method. A reported value of 9 .0 could actuall y be between 8.73 and 9.27. Ref: http://www.ngsp.org/CAPdata.asp Ordering Provid er: RAHEEL MILAN Report Released Date/Time: May 14, 2022 12:00 PM Reporting Lab: [facility] [address] [facility] [address] Performing Lab: [facility] [address] [facility] [address] HEMOGLOBIN A1C 5.1 4.0-5.6 May 23, 2022 [facility] CBC AND DIFF Specimen Type: BLOOD 10:33 AM [facility] No comment enter ed. Ordering Provid er: RAHEEL MILAN Report Released Date/Time: May 14, 2022 12:00 PM Reporting Lab: [facility] [address] [facility] [address] Performing Lab: [facility] [address] [facility] [address] WBC 8.15 4.50-11.00 RBC 4.51 4.23-5.66 HGB 13.2 12.8-17 HCT 41.3 39.2-50.4 MCV 91.6 82-99 MCHC 32.0 30.8-35.1 PLT 237 140-360 RDW-CV 12.9 12.0-16.0 Tift, Abs 0.56 0.30-1.10 MCH 29.3 26.2-32.6 Neut % 74.7 Lymph % 11.7 Tift % 6.9 Eos % 5.8 Baso % 0.5 Neut, Abs 6.10 2.20-7.60 Lymph, Abs 0.95 L 1.00-3.20 Eos, Abs 0.47 H 0.03-0.44 Baso, Abs 0.04 0.01-0.13 Immature Gran % 0.4 Immature Gran, Abs 0.03 0.00-0.06 May 23, 2022 [facility] PT & INR (PROTIME) Specimen Typ e: PLASMA 10:33 AM [facility] No comment enter ed. Ordering Provid er: RAHEEL MILAN Report Released Date/Time: May 14, 2022 12:00 PM Reporting Lab: [facility] [address] [facility] [address] Performing Lab: [facility] [address] [facility] [address] INR 1.2 PROTIME 13.9 H 10.0-13.1 May 23, 2022 [facility] LIPID PANEL, NON Specimen Type: SERUM 10:33 AM [facility] FASTING No comment enter ed. Ordering Provid er: RAHEEL MILAN Report Released Date/Time: May 23, 2022 10:20 AM Reporting Lab: [facility] [address] [facility] [address] Performing Lab: [facility] [address] [facility] [address] CHOLESTEROL 243 H <7-199 TRIGLYCERIDE 123 0-150 LDL calculated 178 H 0-129 CHOL/HDL 6.1 HDL CHOLESTEROL 40 40-60 May 23, 2022 [facility] BASIC METABOLIC PANEL Specimen Type: SERUM 10:33 AM [facility] (non-fasting) No comment enter ed. Ordering Provid er: RAHEEL MILAN Report Released Date/Time: May 23, 2022 10:20 AM Reporting Lab: [facility] [address] [facility] [address] Performing Lab: [facility] [address] [facility] [address] UREA NITROGEN 20 7-25 GLUCOSE 121 H [...] % 0 71 in 205 lb 29 PR 2021 09:51 /min mm[Hg] CNTRL AM [facility] Social History: Smoking Status (Most current) and Tobacco Use (All prior to encounter date) This section includes the most current, and the historical, smoking and tobacco-related health factors from the PR facility where the Encounter took place.Current Smoking Status This section includes the most current smoking, or tobacco-related health factor, from the PR facility where the Encounter took place. Date/Time Current Smoking Status Comment Facility May 23, 2022 10:00 AM PR-TOBACCO FORMER USER [facility] Tobacco Use History This section includes a history of the smoking, or tobacco- related health factors, that were collected on or before the date of the Encounter. The data comes from the PR facility where the Encounter took place. 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 STORAGE ENGINEERING NO [facility] [place] [facility] March 24, 2021 10:00 AM VA-TOBACCO USE MED NO [facility] C [facility] [place] [facility] March 24, 2021 10:00 AM VA-TOBACCO USER SOME DAYS [facility] [place] [facility] Dec 20, 2019 11:46 AM VA-TOBACCO USE 5 TO 15 YEARS [facility] [place] [facility] Dec 20, 2019 11:46 AM VA-TOBACCO USE ADVICE VA C [facility] [place] [facility] Dec 20, 2019 11:46 AM VA-TOBACCO USE DIRECTOR HYDROGEN STORAGE ENGINEERING YES [facility] [place] [facility] Dec 20, 2019 11:46 AM VA-TOBACCO USE MED NO [facility] C [facility] [place] [facility] Dec 20, 2019 11:46 AM VA-TOBACCO USE WI 30 MIN OF VA CN[facility] [place] Dec 20, 2019 11:46 AM VA-TOBACCO USER SOME DAYS [facility] [place] [facility] Dec 03, 2018 12:20 PM VA-TOBACCO USE 30 YEARS OR VA CN[facility] [place] MORE [facility] Dec 03, 2018 12:20 PM VA-TOBACCO USE ADVICE VA C [facility]TRL [facility] [place] [facility] Dec 03, 2018 12:20 PM VA-TOBACCO USE DIRECTOR HYDROGEN STORAGE ENGINEERING NO [facility] [place] [facility] Dec 03, 2018 12:20 PM VA-TOBACCO USE MED NO VA C [facility]L [facility] [place] [facility] Dec 03, 2018 12:20 PM VA-TOBACCO USE WI 30 MIN OF VA CNTRL W[facility] [place] [facility] Dec 03, 2018 12:20 PM VA-TOBACCO USER EVERY DAY PR CNTRL WSTRN [place] [facility] Encounter Notes: All associated encounter notes This section contains the clinical notes associated to the Encounter. Date/Time Encounter Note(s) Provider Source May 24, 2022 03:37 LETTERS: MAGRAHEEL Crispin [facility] WSTRN PM LOCAL TITLE: PATIENT LETTER (T) [place] [facility] STANDARD TITLE: LETTERS DATE OF NOTE: MAY 24, 2022@15:37 ENTRY DATE: MAY 24, 2022@15:37:05 AUTHOR: RAHEEL HATHAWAY EXP COSIGNER: URGENCY: STATUS: COMPLETED [facility] Toll Free Number Primary Care Telephone Assistance can be reached at extension [phone] [facility] scheduling can be reac hed at extension [phone] [facility] scheduling can be mayte ched at ext [phone] RJ OCAMPO [address] [place], [place], [address] Dear [place], Lab finds your thyroid hormone level low. I am i ncreasing the dose a bit from 25mcg daily to 50mcg daily. You make take two of the old tabs until that supply is exhausted, then take one daily of the 50mcg t abs. Glucose is up in the 120s, this is at th e high end of the 'prediabetes' range. Daily walking, low carb diet and weight control may stave off the development of full fledged diabetes. Your lipids are likewise a b it elevated, low fat diet in addition to your statin medication are helpful here. Please repeat fasting labs in September 18, when you are in Optometry for an exam. Sincerely, Your Primary Care Team [facility] [address] [facility] [address] [place] [address] [place], [place] [id number] [facility] [address] [place] [address] [address] [place] [address] [place] [address] [phone] [facility] [address] [facility] [place] [address] HARMAN Cannon [id number] May 23, 2022 10:36 PRIMARY CARE NURSE PRACTITIONER BRIDGET BELL NOTE: RAHEEL MILAN [facility] WSTRN AM [facility] TITLE: NURSE PRACTITIONER OUTPATIENT NOTE [place] [facility] STANDARD TITLE: PRIMARY CARE NURSE PRACTITIONER OUTPATIENT NOTE DATE OF NOTE: MAY 23, 2022@10:36 ENTRY DATE: MAY 23, 2022@10:36:27 AUTHOR: RAHEEL MILAN EXP COSIGNER: URGENCY: STATUS: COMPLETED HPI: Pleasant male [place] here with his . Brennan martínez has had some swallowing issues, being addressed through ENT Luz bhatia and Deloris with a swallowing study tomorrow. He does not that d espite efforts he is unable to swallow atorvastatin pill, he did better with simvastatin pill, order ed. He maintains follow up with non va PCP, Dr. Carlos Enrique martínez. Allergies: MOXIFLOXACIN The following VA and Non-VA meds were re conciled with patient. The patient was educated on the use of the medications including indication and side effects. Active and Recently Outpatient Medicatio ns (excluding Supplies): Active Outpatient Medications Status 1) ALBUTEROL 90MCG (CFC-F) 200D ORAL INHL INHALE 2 PUFFS ACTIVE BY MOUTH EVERY 4 HOURS NEEDED 2) APIXABAN 5MG TAB TAKE ONE-HALF TABLET BY MOUT H TWICE ACTIVE DAILY TO PREVENT BLOOD CLOTS. 3) CLOTRIMAZOLE 1% TOP SOLN APPLY DIRECTED TO PICALLY ACTIVE ONCE DAILY FOR FUNGAL INFECTION 4) LEVOTHYROXINE [...] ACTIVE BEDTIME Pending Outpatient Medications Status 1) SIMVASTATIN 80MG TAB TAKE ONE-HALF TABLET BY MOUTH PENDING ONCE DAILY FOR CHOLESTEROL Active Non-VA Medications Status 1) Non-VA ASPIRIN 81MG EC TAB 81MG BY MOUTH TWIC E DAILY ACTIVE 2) Non-VA VARENICLINE 1MG TAB 1 TABLET BY MOUTH TWICE ACTIVE DAILY 9 Total Medications On examination: 98.7 F [37.1 C] (05/23/2022 09:51)118/71 (05/23/2022 09:51)95 (05/23/2022 09:51) 20 (05/23/2022 09:51)0 (04/2022 09:51)BMI: 28.7205 lb [92.99 kg] (05/23/2022 09:51) [place] is alert and oriented X3 Neck: supple without masses, trachea midline, ln not palpable, no thyromegaly Cardiovasc: 2plus carotids w ithout bruits, no JVD Heart Reguler rate and rhythm NL S1S2 no S3 or murmur Respiration: Normal respiratory effort, lungs cl ear ABD: Benign normal active bowel sounds no HSM no rebound or referred pain Assessment/plan: Active problems - Computerized Problem List is t he source for the followin. Reduced mobility - uses walker 2. DVT - Deep vein thrombosis - on eliquis 3. Hypothyroidism ([facility] [id number]) - check TSH 4. Hyperlipidemia ([facility] [id number]) - RESU NH SIMVASTATIN, check labs next visit. 5. COPD - Chronic Obstructive Pulmonary Disease ([facility] [id number]) - follows with Dr. Nikky, now on home o2 6. 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 Review of medial record = 5mins Time spent with Patient including shared decisio n making = 20 mins Post visit documentation = 5mins Total time = 30 mins Follow up visit in 6 mos. Alert to PACT RN - Labs as necessary to address clinical status. Medication Reconciliation: Outpatient: Has the patient been taking medications as docu mented in the EMLR? YES: The patient has been taking medications as documented in the EMLR. Essential Medication List for Review used to co mplete this medication reconciliation. INCLUDED IN THIS LIST: Alphabetical list of act jimmy outpatient prescriptions dispensed from this PR (local) an d dispensed from another PR or [facility] facility (remote) as well as inpatien t [...] appointme nt, whether with a VA or non-PR provider. /prince/ Raheel Milan DNP, PLUMBING FOREMAN-BC, CNL Primary Care Nurse Practitioner Signed: 05/23/2022 10:41 May 23, 2022 09:56 PREVENTIVE MEDICINE NURSING NOTE: REJI SAMUEL CNTRL WSTRN LOCAL TITLE: CLINICAL REMINDERS/NURSING [place] [facility] STANDARD TITLE: PREVENTIVE MEDICINE NURSING NOTE DATE OF NOTE: MAY 23, 2022@09:56 ENTRY DATE: MAY 23, 2022@09:56:41 AUTHOR: REJI SAMUEL EXP COSIGNER: URGENCY: STATUS: COMPLETED Advance Directive Screen: The patient has an Advance Directive on file at another [facility] that may require updating with the assistance of Social Work Service. A consult to Social Work Service has been enter ed. (See Orders) The patient received education about Advance Di rectives and written notification of his/her rights. Comment: vets Bill is vets proxy Suicide Screen: C-SSRS Screening [place]-Suicide Severity Rating Scale (C-SSRS Screener) 1. Over the past month, have you wished you wer e or wished you could go to sleep and not wake up? No 2. Over the past month, have you had any actual thoughts of killing yourself? No 3. Over the past month, have you been thinking about how you might do this? Response not required due to responses to other questions. 4. Over the past month, have you had these thou ghts and had some intention of acting on them? Response not required due to responses to other questions. 5. Over the past month, have you started to wor k out or worked out the details of how to kill yourself? Response not required due to responses to other questions. 6. If yes, at any time in the past month did yo u intend to carry out this plan? Response not required due to responses to other questions. 7. In your lifetime, have you ever done anythin g, started to do anything, or prepared to do anything to end you r life (for example, collected pills, obtained a gun, gave away valu crystal, went to the roof but didn't jump)? No 8. If YES, was this within the past 3 months? Response not required due to responses to other questions. Depression Screening: Perform PHQ-2 A PHQ-2 screen was performed. The score was 0 w hich is a negative screen for depression. Over the past two weeks, how often have you bee n bothered by the following problems? 1. Little interest or pleasure in doing things Not at all 2. Feeling down, depressed, or hopeless Not at all Relationship Health & Safety Screen: Screening is not completed at this time due to: Another adult is present. Tobacco Use Screening: The patient is a former tobacco user. The patient quit one to less than 5 years ago. Alcohol Use Screen (AUDIT-C): Alcohol Screen: SCREEN FOR ALCOHOL (AUDIT-C) An alcohol screening test (AUDIT-C) was negativ e (score=1). 1. How often did you have a drink containing al cohol in the past year? Monthly or less 2. How many drinks containing alcohol did you h ave on a typical day when you were drinking in the past year? One or two drinks 3. How often did you have six or more drinks on one occasion in the past year? Never /es/ Reji Samuel, Health [employer] Saw Operator DISTRIBUTION SPEC,PRIMARY CARE Signed: 05/23/2022 09:59
--- OUTSIDE RECORDS SUMMARY | 2022-10-01 09:17 | XMS_ITS ---
:1950 Author Organization [facility] rs Address [address] [place] [address] Support Name Relationship Address Phone JOSE OCAMPO Unavailable [address] [place] [address] JOSE OCAMPO Unavailable [address] [place] [address] Insurance Providers: All historical and current Section [...] Telephone Name to Policy Number [place] Jan 16, [id number] [phone] PATIENT SUPPLEMEN HEARI 2014 10 [id number] ,[facility] MEDICARE MEDEX Jan 16, [id number] [phone] PATIENT MASS SUPPLEMEN HEARI 2013 10 [id number] ,RJ JOHNSON AND MEDICARE MEDICARE PART Jan 16, PART A [id number] PATIENT (WNR) (M) A 2013 EK 00 ,RJ MEDICARE MEDICARE PART Jan 16, PART B [id number] PATIENT (WNR) (M) B 2013 EK 00 ,RJ MEDICARE MEDICARE PART Jan 16, PART A [id number] PATIENT (WNR) (M) A 2013 4 ,RJ MEDICARE MEDICARE PART Jan 16, PART B [id number] PATIENT (WNR) (M) B 2013 [id number] ,RJ MEDICARE MEDICARE PART Jan 16, PART A [id number] [phone] PATIENT (WNR) (M) A 2013A 00 ,RJ MEDICARE MEDICARE PART Jan 16, PART B [id number] [phone] PATIENT (WNR) (M) B 2013 00 ,RJ Selected Encounter This section includes the information on record at [place] for the Encounter. Date/Time Encounter Type Encounter Description Reason Provider Source May 31, 2022 12:00 Outpatient Encounter EVENT (HISTORICAL) AM [...] 22, 2022 10:00 AM AMBULATORY - MEDICINE [facility] [place] [facility] Active, Pending, [...] the Encounter. The data comes from all [place] treatment facilities. Test Date/Time Test Type Test Details Facility Name Apr 20, 2022 07:31 AM Consult Order COMMUNITY CARE-PULMONARY V [facility] Cons Insulation Installer's Choice [place] [facility] Lab Results: +/- 30 days [...] Interpretation Reference Range Comment May 23, 2022 [facility] THYROID T4 FREE(FT4) Specimen T ype: SERUM 10:33 AM [place] [facility] No comment enter ed. Ordering Provid er: RAHEEL TRIPLETT Report Released Date/Time: May 14, 2022 12:00 PM Reporting Lab: [facility] [place] [facility] [address] [facility] [address] Performing Lab: [facility] [place] [facility] [address] [facility] [address] THYROID T4 FREE(FT4) 0.93 0.6-1.6 May 23, 2022 10:33 AM [facility] [place] [facility] Specimen Type: [facility] No comment enter ed. Ordering Provid er: RAHEEL TRIPLETT Report Released Date/Time: May 14, 2022 12:00 PM Reporting Lab: [facility] [place] [facility] [address] [facility] [address] Performing [facility]: [facility] [place] [facility] [address] [facility] [address] TSH 5.56 H 0.35-5.00 May 23, 2022 10:33 [facility] LIVER FUNCTION Specimen Typ e: SERUM AM [place] [facility] No comment enter ed. Ordering Provid er: RAHEEL TRIPLETT Report Released Date/Time: May 14, 2022 12:00 PM Reporting Lab: [facility] [place] [facility] [address] [facility] [address] Performing Lab: [facility] [place] [facility] [address] [facility] [address] PROTEIN,TOTAL 7.3 6.0-8.3 ALBUMIN 3.8 3.5-5.0 ALKALINE PHOSPHATASE 41 40-150 AST 14 5-34 ALT 9 <6-55 BILIRUBIN, TOTAL 0.4 0.2-1.2 May 23, 2022 [facility] HEMOGLOBIN A1C Specimen Type: BLOOD 10:33 AM [place] [facility] PANEL Comment: Values obtained from [...] May 14, 2022 12:00 PM Reporting Lab: [facility] [address] [facility] [address] Performing Lab: [address] [address] HEMOGLOBIN A1C 5.1 4.0-5.6 May 23, 2022 [facility] CBC AND DIFF Specimen Type: BLOOD 10:33 AM [place] [facility] (AUTO) No comment enter ed. Ordering Provid er: RAHEEL TRIPLETT Report Released Date/Time: May 14, 2022 12:00 PM Reporting Lab: [facility] [address] [facility] [address] Performing Lab: [facility] [address] [facility] [address] WBC 8.15 4.50-11.00 RBC 4.51 4.23-5.66 HGB 13.2 12.8-17 HCT 41.3 39.2-50.4 MCV 91.6 82-99 MCHC 32.0 30.8-35.1 PLT 237 140-360 RDW-CV 12.9 12.0-16.0 [place], Abs 0.56 0.30-1.10 MCH 29.3 26.2-32.6 Neut % 74.7 Lymph % 11.7 [place] % 6.9 Eos % 5.8 Baso % 0.5 Neut, Abs 6.10 2.20-7.60 Lymph, Abs 0.95 L 1.00-3.20 Eos, Abs 0.47 H 0.03-0.44 Baso, Abs 0.04 0.01-0.13 Immature Gran % 0.4 Immature Gran, Abs 0.03 0.00-0.06 May 23, 2022 [facility] (PROTIME) Specimen Typ e: PLASMA 10:33 AM [place] [facility] No comment enter ed. Ordering Provid er: RAHEEL TRIPLETT Report Released Date/Time: May 14, 2022 12:00 PM Reporting Lab: [facility] [place] [facility] [address] [facility] [address] Performing Lab: [facility] [place] [facility] [address] [facility] [address] INR 1.2 PROTIME 13.9 H 10.0-13.1 May 23, 2022 [facility] LIPID PANEL, NON Specimen Type: SERUM 10:33 AM [place] [facility] FASTING No comment enter ed. Ordering Provid er: RAHEEL TRIPLETT Report Released Date/Time: May 23, 2022 10:20 AM Reporting Lab: [facility] [place] [facility] [address] [facility] [address] Performing Lab: [facility] [address] [facility] [address] CHOLESTEROL 243 H <7-199 TRIGLYCERIDE 123 0-150 LDL calculated 178 H 0-129 CHOL/HDL 6.1 HDL CHOLESTEROL 40 40-60 May 23, 2022 [facility] BASIC METABOLIC PANEL Specimen Type: SERUM 10:33 AM [place] [facility] (non-fasting) No comment enter ed. Ordering Provid er: RAHEEL TRIPLETT Report Released Date/Time: May 23, 2022 10:20 AM Reporting Lab: [facility] [place] [facility] [address] [facility] [address] Performing Lab: [facility] [place] [facility] [address] [facility] [address] UREA NITROGEN 20 7-25 GLUCOSE 121 H [...] VA-TOBACCO FORMER USER [facility] [place] [facility] Tobacco Use History This section includes a history of the smoking, or tobacco- related health factors, that were collected on or before the date of the Encounter. The data comes from the [facility] where the Encounter took place. Date/Time Smoking Status/Tobacco Use Comment Diego monsalve May 23, 2022 10:00 AM VA-TOBACCO QUIT 1 TO < 5 YRS [facility] [place] [facility] March 24, 2021 10:00 AM VA-TOBACCO DOESNT USE WI 30 [facility] [place] [facility] March 24, 2021 10:00 AM VA-TOBACCO USE 30 YEARS OR [facility] [place] [facility] March 24, 2021 10:00 AM VA-TOBACCO USE ADVICE [facility] [place] [facility] March 24, 2021 10:00 AM VA-TOBACCO USE SPICE MIXER NO [facility] [place] [facility] March 24, 2021 10:00 AM VA-TOBACCO USE MED NO [facility] [place] [facility] March 24, 2021 10:00 AM VA-TOBACCO USER SOME DAYS [facility] [place] [facility] Dec 20, 2019 11:46 AM VA-TOBACCO USE 5 TO 15 YEARS [facility] [place] [facility] Dec 20, 2019 11:46 AM VA-TOBACCO USE ADVICE [facility] [place] [facility] Dec 20, 2019 11:46 AM VA-TOBACCO USE SPICE MIXER YES [facility] [place] [facility] Dec 20, 2019 11:46 AM VA-TOBACCO USE MED NO [facility] [place] [facility] Dec 20, 2019 11:46 AM VA-TOBACCO USE WI 30 MIN OF [facility] [place] [facility] Dec 20, 2019 11:46 AM VA-TOBACCO USER SOME DAYS [facility] [place] [facility] Dec 03, 2018 12:20 PM VA-TOBACCO USE 30 YEARS OR [facility] [place] [facility] Dec 03, 2018 12:20 PM VA-TOBACCO USE ADVICE VA [facility] [place] [facility] Dec 03, 2018 12:20 PM VA-TOBACCO USE SPICE MIXER NO [facility] [place] [facility] Dec 03, 2018 12:20 PM VA-TOBACCO USE MED NO [facility] [place] [facility] Dec 03, 2018 12:20 PM VA-TOBACCO USE WI 30 MIN OF [facility] [place] [facility] Dec 03, 2018 12:20 PM VA-TOBACCO USER EVERY DAY [place] [facility] Encounter Notes: All associated encounter notes This section contains the clinical notes associated to the Encounter. Date/Time Encounter Note(s) Provider Source May 31, 2022 12:00 AM NONVA NOTE: [facility] LOCAL TITLE: NON-[facility] STANDARD TITLE: NONVA NOTE DATE OF NOTE: MAY 31, 2022 ENTRY DATE: JUN 27 022@13:46:34 AUTHOR: BORA COVINGTON EXP COSIGNER: URGENCY: STATUS: COMPLETED VistA Imaging - Scanned Document SCANNED DOCUMENT SIGNATURE NOT REQUIRED Electronically Filed: 06/27/2022 by: BORA COVINGTON HEAD UP OPERATOR
--- OUTSIDE RECORDS SUMMARY | 2022-10-01 09:17 | XMS_ITS ---
:1950 Author Organization [facility] rs Address [address] [place] [address] Support Name Relationship Address Phone JOSE OCAMPO Unavailable [address] [place] [phone] JOSE OCAMPO Unavailable [address] [place] [address] Insurance Providers: All historical and current Section Date Range: From patient's date of to the date document was created.This section includes the names of all active insurance providers for the patient. Insurance Type of Plan Start of End of Group Member Insurance Policy P atient's Provider Coverage Name Policy Policy Number ID Provider's Winters's Relationship Coverage Coverage Telephone Name to Policy Number Winters [facility] MEDICARE MEDEX Jan 16, [id number] [phone] PATIENT SUPPLEMEN HEARI 2013 10 [id number] ,RJ [facility] MEDICARE MEDEX Jan 16, [id number] [phone] PATIENT MASS SUPPLEMEN HEARI 2013 10 [id number] ,RJ JOHNSON AND MEDICARE MEDICARE PART Jan 16, PART A [id number] PATIENT (WNR) (M) A 2013 00 ,RJ MEDICARE MEDICARE PART Jan 16, PART B [id number] [phone] PATIENT (WNR) (M) B 2013 00 ,RJ MEDICARE MEDICARE PART Jan 16, PART A [id number] PATIENT (WNR) (M) A 2013 4 ,RJ MEDICARE MEDICARE PART Jan 16, PART B [id number] [id number] ANNETTE JENKINS PATIENT (WNR) (M) B 2013 [id number] ,RJ MEDICARE MEDICARE PART Jan 16, PART A [id number] [id number] PATIENT (WNR) (M) A 2013A 00 ,RJ MEDICARE MEDICARE PART Jan 16, PART B [id number] [phone] PATIENT (WNR) (M) B 2013 ,RJ Selected Encounter This section includes the information on record at [place] for the Encounter. Date/Time Encounter Type Encounter Description Reason Provider Source Jul 25, 2022 04:14 Outpatient Encounter TELEPHONE PRIMARY PM CARE IHE Encounter Template Text not used by [place] Plan of Treatment: Future Appointments (+ 6 months) and Future Tests (+/- 45 days) The Plan of Treatment section includes future care activities for the patient from all [place] treatmentfacilities. This section includes future appointments and future orders which are active, pending orscheduled.Future Appointments This section includes appointments that were scheduled to occur 6 months from the date of the Encounter, up to a maximum of 20 appointments. The data comes from all [place] treatment facilities. Appointment Date/Time Appointment Type Appointment Facili ty Name Nov 22, 2022 10:00 AM [facility] Social History: Smoking Status (Most current) and Tobacco Use (All prior to encounter date) This section includes the most current, and the historical, smoking and tobacco-related health factors from the [place] facility where the Encounter took place.Current Smoking Status This section includes the most current smoking, or tobacco-related health factor, from the [place] facility where the Encounter took place. Date/Time Current Smoking Status Comment Facility May 23, 2022 10:00 AM [place]-TOBACCO FORMER USER [place] [facility] [place] [facility] Tobacco Use History This section includes a history of the smoking, or tobacco- related health factors, that were collected on or before the date of the Encounter. The data comes from the [place] facility where the Encounter took place. Date/Time Smoking Status/Tobacco Use Comment 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 [facility] [place] [facility] March 24, 2021 10:00 AM VA-TOBACCO USE MED NO [facility] [place] [facility] March 24, 2021 10:00 AM VA-TOBACCO USER SOME DAYS [facility] [place] [facility] Dec 20, 2019 11:46 AM VA-TOBACCO USE 5 TO 15 YEARS [facility] [place] [facility] Dec 20, 2019 11:46 AM VA-TOBACCO USE ADVICE [facility] [place] [facility] Dec 20, 2019 11:46 AM VA-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 USE 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 [facility] [place] [facility] Dec 20, 2019 11:46 AM VA-TOBACCO USE MED NO [facility] [place] [facility] Dec 20, 2019 11:46 AM VA-TOBACCO USE WI 30 MIN OF [facility] [place] [facility] Dec 20, 2019 11:46 AM VA-TOBACCO USER SOME DAYS [facility] [place] [facility] Dec 03, 2018 12:20 PM VA-TOBACCO USE 30 YEARS OR [facility] [place] [facility] Dec 03, 2018 12:20 PM VA-TOBACCO USE ADVICE VA [facility] [place] [facility] Dec 03, 2018 12:20 PM VA-TOBACCO USE 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 Date/Time Encounter Note(s) Provider Source Jul 25, 2022 04:14 PRIMARY CARE TELEPHONE ENCOUNTER NOTE: VERA GARCIAKEY [place] [facility] PM LOCAL TITLE: TELEPHONE NOTE/PRIMARY CARE [facility] STANDARD TITLE: PRIMARY CARE TELEPHONE ENCOUNTER NOTE DATE OF NOTE: JUL 25, 2022@16:14 ENTRY DATE: JUL 25, 2022@16:14:26 AUTHOR: KEY IBARRA EXP COSIGNER: URGENCY: STATUS: COMPLETED Vet provides with information from Esophagosc opy Flexible with Dilation on 07/24/22 at [facility] HPI: Rj Ocampo is a 72 year old male with PMH including smoking, pneumonia in Sep 2021 (on supplemental oxygen vi a nasal cannula since), HTN, aortic stenosis (mild per ec ho 2017), PVD, history of carotid stenosis s/p Right CEA (05/2012) c/b re-stenosis and subsequent carotid stent (01/2014), and Left CEA (11/2013), adenocarcinoma of lung s/p VATS R uppe r lobectomy 03/2013, hypothyroidism (recent Levothyroxine dos e change), h/o chronic hyponatremia (? SIADH/reset osmostat), L femur fracture s/p ORIF in 2017 c/b LLE DVT while on coumadin (now on Apixaban; p krystal pending), PAD s/p bypass graft aorto bifemoral, with H/O T3N3 supraglottic c ancer, s/p chemo/radiation/tumor debulking in 2010, with known difficult airway requiring awake intu bations, with increasing dysphagia, with narrowing of the esophag us at the cricopharyngeus. Plan is for an esophageal dilation. Flexible Laryngoscopy by Dr. Mireles 05/31/2022: Findings: The left side of t he nose was examined. He had a very dry nasal cavity on each side related to the nasal oxygen. The mi ddle turbinate, inferior turbinate nasal septum without lesions. The naso pharynx showed good symmetry. The oropharynx shows a mildly thickened base of tongue and mildly thickened epiglottis but no discrete l esions. His larynx shows changes consistent with his previous treatment for supraglottic cancer. Ther e is no obvious evidence of recurrence he does have a slight fullness just b y the epiglottic petiole. He presents today for a preoperative evaluation prior to LARYNGOSCOPY DIRECT (N/A )ESOPHAGOSCOPY FLEXIBLE WITH DILATATION (N/ A ) on 07/24/2022 with Perez Mireles MD, DMD. /prince/ Key Ibarra MSN RN CNL Primary Care RN Signed: 07/25/2022 16:25 Receipt Acknowledged By: * AWAITING SIGNATURE * RAHEEL TRIPLETT
--- OUTSIDE RECORDS SUMMARY | 2022-10-01 09:18 | XMS_ITS | Encounter Summary ---
:1950 Author Organization [facility] rs Address [address] [place] [address] Support Name Relationship Address Phone JOSE OCAMPO Unavailable [address] [place] [address] JOSE OCAMPO Unavailable [address] [place] [address] Insurance Providers: All historical and current Section Date Range: From patient's date of to the date document was created.This section includes the names of all active insurance providers for the patient. Insurance Type of Plan Start of End of Group Member Insurance Policy P atient's Provider Coverage Name Policy Policy Number ID Provider's Winters's Relationship Coverage Coverage Telephone Name to Policy Number Winters [facility] MEDICARE MEDEX Jan 16, [id number] [phone] PATIENT SUPPLEMEN HEARI 2014 10 [id number] ,RJ JOHNSON AND [facility] MEDICARE MEDEX Jan 16, [id number] [phone] PATIENT MASS SUPPLEMEN HEARI 2013 10 [id number] ,RJ JOHNSON AND MEDICARE MEDICARE PART Jan 16, PART A [id number] PATIENT (WNR) (M) A 2013 00 ,RJ MEDICARE MEDICARE PART Jan 16, PART B [id number] PATIENT (WNR) (M) B 2013 00 ,RJ MEDICARE MEDICARE PART Jan 16, PART A [id number] PATIENT (WNR) (M) A 2013 4 ,RJ MEDICARE MEDICARE PART Jan 16, PART B [id number] PATIENT (WNR) (M) B 2013 [id number] ,RJ MEDICARE MEDICARE PART Jan 16, PART A [id number] [phone] PATIENT (WNR) (M) A 2013 [id number] ,RJ MEDICARE MEDICARE PART Jan 16, PART B [id number] [phone] PATIENT (WNR) (M) B 2013 00 ,RJ Selected Encounter This section includes the information on record at [place] for the Encounter. Date/Time Encounter Type Encounter Description Reason Provider Source Apr 23, 2022 09:00 Outpatient Encounter COMMUNITY CARE AM CONSULT IHE Encounter Template Text not used by [place] Plan of Treatment: Future Appointments (+ 6 [...] 23, 2022 10:00 AM AMBULATORY - MEDICINE [place] [facility] [place] [facility] Active, Pending, and [...] COMMUNITY CARE-PULMONARY V A CNTRL WSTRN Cons Block [facility] [place] [facility] Lab Results: +/- 30 days of the [...] Reference Range Comment May 23, 2022 [place] CNT WSTRN THYROID T4 FREE(FT4) Specimen T ype: SERUM 10:33 AM [place] [facility] No comment enter ed. Ordering Provid er: RAHEEL TRIPLETT Report Released Date/Time: May 14, 2022 12:00 PM Reporting [facility] [place] [facility] [address] [facility] [address] Performing Lab: [facility] [place] [facility] [address] [facility] [address] THYROID T4 FREE(FT4) 0.93 0.6-1.6 May 23, 2022 10:33 AM PR CNTRL W[facility]N [place] [facility] Specimen Type: SERUM [facility] No comment enter ed. Ordering Provid er: RAHEEL TRIPLETT Report Released Date/Time: May 14, 2022 12:00 PM Reporting Lab: [facility] [place] [facility] [address] [facility] [address] Performing Lab: [facility] [place] [facility] [address] [facility] [address] TSH 5.56 H 0.35-5.00 May 23, 2022 [facility] HEMOGLOBIN A1C Specimen Type: BLOOD 10:33 AM [place] [facility] PANEL Comment: Values obtained from A1C measurements can vary. For typical A1C assays, a reported value of 7.0 could actually be between 6.72 and 7.28 if measured by a reference method. A reported value of 9 .0 could actuall y be between 8.73 and 9.27. Ref: [email or web address]/[email or web address] Ordering Provid er: RAHEEL TRIPLETT Report Released Date/Time: May 14, 2022 12:00 PM Reporting Lab: [facility] [place] [facility] [address] [facility] [address] Performing Lab: [facility] [place] [facility] [address] [facility] [address] HEMOGLOBIN A1C 5.1 4.0-5.6 May 23, 2022 10:33 PR CNTRL WSTRN LIVER FUNCTION Specimen Typ e: SERUM AM [place] [facility] No comment enter ed. Ordering Provid er: RAHEEL TRIPLETT Report Released Date/Time: May 14, 2022 12:00 PM Reporting Lab: [facility] [address] [facility] [address] Performing Lab: [facility] [address] [facility] [address] PROTEIN,TOTAL 7.3 6.0-8.3 ALBUMIN 3.8 3.5-5.0 ALKALINE PHOSPHATASE 41 40-150 AST 14 5-34 ALT 9 <6-55 BILIRUBIN, TOTAL 0.4 0.2-1.2 May 23, 2022 PR CNTRL WSTRN PT & INR (PROTIME) Specimen Typ e: PLASMA 10:33 AM [place] [facility] No comment enter ed. Ordering Provid er: RAHEEL TRIPLETT Report Released Date/Time: May 14, 2022 12:00 PM Reporting Lab: [facility] [address] [facility] [address] Performing Lab: [facility] [address] [facility] [address] INR 1.2 PROTIME 13.9 H 10.0-13.1 May 23, 2022 [facility] CBC AND DIFF Specimen Type: BLOOD 10:33 [facility] (AUTO) No comment enter ed. Ordering Provid er: RAHEEL TRIPLETT Report Released Date/Time: May 14, 2022 12:00 PM Reporting Lab: [facility] [address] [facility] [address] Performing Lab: [facility] [address] [facility] [address] WBC 8.15 4.50-11.00 RBC 4.51 4.23-5.66 HGB 13.2 12.8-17 HCT 41.3 39.2-50.4 MCV 91.6 82-99 MCHC 32.0 30.8-35.1 PLT 237 140-360 RDW-CV 12.9 12.0-16.0 [place], Abs 0.56 0.30-1.10 MCH 29.3 26.2-32.6 Neut % 74.7 Lymph % 11.7 [place] % 6.9 Eos % 5.8 Baso % 0.5 Neut, Abs 6.10 2.20-7.60 Lymph, Abs 0.95 L 1.00-3.20 Eos, Abs 0.47 H 0.03-0.44 Baso, Abs 0.04 0.01-0.13 Immature Gran % 0.4 Immature Gran, Abs 0.03 0.00-0.06 May 23, 2022 [facility] LIPID PANEL, NON Specimen Type: SERUM 10:33 AM [place] [facility] FASTING No comment enter ed. Ordering Provid er: RAHEEL TRIPLETT Report Released Date/Time: May 23, 2022 10:20 AM Reporting Lab: [facility] [address] [facility] [address] Performing Lab: [facility] [address] [facility] [address] CHOLESTEROL 243 H <7-199 TRIGLYCERIDE 123 0-150 LDL calculated 178 H 0-129 CHOL/HDL 6.1 HDL CHOLESTEROL 40 40-60 May 23, 2022 [facility] BASIC METABOLIC PANEL Specimen Type: SERUM 10:33 AM [place] [facility] (non-fasting) No comment enter ed. Ordering Provid er: RAHEEL TRIPLETT Report Released Date/Time: May 23, 2022 10:20 AM Reporting Lab: [facility] [address] [facility] [address] Performing Lab: [facility] [address] [facility] [address] UREA NITROGEN 20 7-25 GLUCOSE 121 H [...] USER SOME DAYS [place] [facility]L [facility] [facility] Tobacco Use History This section includes a history of the smoking, or tobacco- related health factors, that were collected on or before the date of the Encounter. The data comes from the [place] facility where the Encounter took place. 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 [facility] [place] [facility] March 24, 2021 10:00 AM VA-TOBACCO USE MED NO VA C [facility]L [facility] [facility] March 24, 2021 10:00 AM VA-TOBACCO USER SOME DAYS VA CN[facility]L [facility] [facility] Dec 20, 2019 11:46 AM VA-TOBACCO USE 5 TO 15 YEARS VA CNTRL [facility] [place] [facility] Dec 20, 2019 11:46 AM VA-TOBACCO USE ADVICE VA C [facility]L [facility] [facility] Dec 20, 2019 11:46 AM VA-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 USE 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 [facility] [place] [facility] Dec 20, 2019 11:46 AM VA-TOBACCO USE MED NO VA C [facility]L [facility] [facility] Dec 20, 2019 11:46 AM VA-TOBACCO USE WI 30 MIN OF VA CNTRL W[facility] [place] [facility] Dec 20, 2019 11:46 AM VA-TOBACCO USER SOME DAYS VA CN[facility]L [facility] [facility] Dec 03, 2018 12:20 PM VA-TOBACCO USE 30 YEARS OR VA CN[facility]L [place] MORE [facility] Dec 03, 2018 12:20 PM VA-TOBACCO USE ADVICE VA C [facility]TRL [facility] [facility] Dec 03, 2018 12:20 PM VA-TOBACCO USE 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
--- OUTSIDE RECORDS SUMMARY | 2022-10-01 09:18 | XMS_ITS | Encounter Summary ---
:1950 Author Organization [facility] rs Address [address] [place] [address] Support Name Relationship Address Phone JOSE OCAMPO Unavailable [address] [place] [address] JOSE OCAMPO Unavailable [address] [place] [address] Insurance Providers: All historical and current Section Date Range: From patient's date of to the date document was created.This section includes the names of all active insurance providers for the patient. Insurance Type of Plan Start of End of Group Member Insurance Policy P atient's Provider Coverage Name Policy Policy Number ID Provider's Winters's Relationship Coverage Coverage Telephone Name to Policy Number Winters [facility] MEDICARE MEDEX Jan 16, [id number] [phone] PATIENT SUPPLEMEN HEARI 2014 10 [id number] ,RJ [facility] MEDICARE MEDEX Jan 16, [id number] [phone] PATIENT MASS SUPPLEMEN HEARI 2013 10 [id number] ,RJ JOHNSON AND MEDICARE MEDICARE PART Jan 16, PART A [id number] PATIENT (WNR) (M) A 2013 00 ,RJ MEDICARE MEDICARE PART Jan 16, PART B [id number] PATIENT (WNR) (M) B 2013 00 ,RJ MEDICARE MEDICARE PART Jan 16, PART A [id number] [phone] PATIENT (WNR) (M) A 2013 4 ,RJ MEDICARE MEDICARE PART Jan 16, PART B [id number] [phone] ANNETTE JENKINS PATIENT (WNR) (M) B 2013 [id number] ,RJ MEDICARE MEDICARE PART Jan 16, PART A [id number] [phone] ANNETTE JENKINS PATIENT (WNR) (M) A 2013 [id number] 00 ,RJ MEDICARE MEDICARE PART Jan 16, PART B [id number] [phone] ANNETTE JENKINS PATIENT (WNR) (M) B 2013 00 ,RJ Selected Encounter This section includes the information on record at [place] for the Encounter. Date/Time Encounter Type Encounter Description Reason Provider Source Oct 24, 2021 01:00 Outpatient Encounter COMMUNITY CARE PM CONSULT IHE Encounter Template Text not used by [place] Plan of Treatment: Future Appointments (+ 6 [...] 26, 2021 08:30 AM [facility] Nov 03, 2021 11:00 AM [facility] Nov 08, 2021 01:30 PM AMBULATORY - REHAB MEDICINE [facility] W STRN [facility] Dec 21, 2021 10:00 AM [facility] Apr 23, 2022 09:00 AM [facility] Lab Results: +/- 30 days of the encounter This section includes the Chemistry and Hematology Lab Results on record with AL for the patient. Radiology Reports and Pathology Reports are provided separately, in subsequent sections.Lab Results This section contains the Chemistry/Hematology Results that were resulted 30 days before or 30 daysafter the date of the Encounter. Date/Time Source Result Type Result - Unit Interpretation Reference Range Comment Nov 03, 2021 [facility] TH[facility] T4 FREE(FT4) Specimen T ype: SERUM 11:56 AM [facility] No comment enter ed. Ordering Provid er: RAHEEL TRIPLETT Report Released Date/Time: Nov 03, 2021 11:25 AM Reporting Lab: [place] [facility]L [place] [facility] [address] [facility] [address] Performing Lab: [place] CNTRL [facility] [facility] [address] [facility] [address] THYROID T4 FREE(FT4) 0.85 0.6-1.6 Nov 03, 2021 VA [facility] WSTRN PT & INR (PROTIME) Specimen Typ e: PLASMA 11:56 AM [place] [facility] No comment enter ed. Ordering Provid er: RAHEEL TRIPLETT Report Released Date/Time: Nov 03, 2021 11:25 AM Reporting Lab: [place] CN[facility]L [place] [facility] [address] [facility] [address] Performing Lab: [facility] [place] [facility] [address] [facility] [address] INR 1.4 PROTIME 15.2 H 10.0-13.1 Nov 03, 2021 [facility] HEMOGLOBIN A1C PANEL Specimen T ype: BLOOD 11:56 AM [place] [facility] Comment: Testin g performed by NGSP [...] Nov 03, 2021 11:25 AM Reporting Lab: [facility] [place] [facility] [address] [facility] [address] Performing Lab: [place] CNTRL [facility] [facility] [address] [facility] [address] HEMOGLOBIN A1C 5.8 H 4.0-5.6 Nov 03, 2021 11:56 AM [facility] [place] TSH Specimen Type: SERUM [facility] No comment enter ed. Ordering Provid er: RAHEEL TRIPLETT Report Released Date/Time: Nov 03, 2021 11:25 AM Reporting Lab: [facility] [place] [facility] [address] [facility] [address] Performing Lab: [facility] [place] [facility] [address] [facility] [address] TSH 2.98 0.35-5.00 Nov 03, 2021 [facility] LIPID PANEL, NON Specimen Type: SERUM 11:56 AM [place] [facility] No comment enter ed. Ordering Provid er: RAHEEL TRIPLETT Report Released Date/Time: Nov 03, 2021 11:25 AM Reporting Lab: [facility] [place] [facility] [address] [facility] [address] Performing Lab: [place] CN[facility]L [facility] [facility] [address] [facility] [address] CHOLESTEROL 261 H 0-199 TRIGLYCERIDE 88 0-150 LDL calculated 202 H 0-129 CHOL/HDL 6.4 HDL CHOLESTEROL 41 40-60 Nov 03, 2021 AL CNTRL WSTRN BASIC METABOLIC PANEL Specimen Type: SERUM 11:56 AM [place] [facility] (non-fasting) No comment enter ed. Ordering Provid er: RAHEEL TRIPLETT Report Released Date/Time: Nov 03, 2021 11:25 AM Reporting Lab: [facility] [place] [facility] [address] [facility] [address] Performing Lab: [facility] [place] [facility] [address] [facility] [address] UREA NITROGEN 13 7-25 GLUCOSE 103 H 65-100 SODIUM 135 135-145 POTASSIUM 4.4 3.5-5.0 CHLORIDE 101 100-110 CO2 23 20-30 CREATININE, Serum 0.98 0.50-1.40 eGFR (IDMS) 76 >60 Nov 03, 2021 11:56 VA CN[facility] LIVER FUNCTION Specimen Typ e: SERUM AM [place] [facility] No comment enter ed. Ordering Provid er: RAHEEL TRIPLETT Report Released Date/Time: Nov 03, 2021 11:25 AM Reporting Lab: [facility] [place] [facility] [address] [facility] [address] Performing Lab: [place] CN[facility]L [facility] [facility] [address] [facility] [address] PROTEIN,TOTAL 6.9 6.0-8.3 ALBUMIN 3.2 L 3.5-5.0 ALKALINE PHOSPHATASE 45 40-150 AST 14 5-34 ALT 12 0-55 BILIRUBIN, TOTAL 0.5 0.2-1.2 Nov 03, 2021 11:56 AM [place] CNTRL [facility] CBC Specimen Type: BLOOD [facility] No comment enter ed. Ordering Provid er: RAHEEL TRIPLETT Report Released Date/Time: Nov 03, 2021 11:25 AM Reporting Lab: [place] [facility]L [facility] [facility] [address] [facility] [address] Performing Lab: [place] CNTR [facility] [facility] [address] [facility] [address] WBC 12.33 H 4.50-11.00 RBC 4.37 4.23-5.66 [...] 2021 10:00 AM VA-TOBACCO USER SOME DAYS AL CNTRL [place] [facility] Tobacco Use History This section includes a history of the smoking, or tobacco- related health factors, that were collected on or before the date of the Encounter. The data comes from the [place] facility where the Encounter took place. 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 NO [facility] [place] [facility] March 24, 2021 10:00 AM VA-TOBACCO USE MED NO [facility] C [facility]L [facility] [facility] March 24, 2021 10:00 AM VA-TOBACCO USER SOME DAYS VA [facility] [place] [facility] Dec 20, 2019 11:46 AM VA-TOBACCO USE 5 TO 15 YEARS VA [facility] [place] [facility] Dec 20, 2019 11:46 AM VA-TOBACCO USE ADVICE VA C [facility]L [facility] [facility] Dec 20, 2019 11:46 AM VA-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 USE 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 MANAGER YES [facility] [place] [facility] Dec 20, 2019 11:46 AM VA-TOBACCO USE MED NO VA C [facility]L [facility] [facility] Dec 20, 2019 11:46 AM VA-TOBACCO USE WI 30 MIN OF VA CNTRL [facility] [place] [facility] Dec 20, 2019 11:46 AM VA-TOBACCO USER SOME DAYS VA [facility] [place] [facility] Dec 03, 2018 12:20 PM VA-TOBACCO USE 30 YEARS OR [facility] [place] [facility] Dec 03, 2018 12:20 PM VA-TOBACCO USE ADVICE VA C [facility]L [facility] [place] [facility] Dec 03, 2018 12:20 PM VA-TOBACCO USE BINGO MANAGER NO [facility] [place] [facility] Dec 03, 2018 12:20 PM VA-TOBACCO USE MED NO VA C [facility]TRL [facility] [facility] Dec 03, 2018 12:20 PM VA-TOBACCO USE WI 30 MIN OF VA CNTRL [facility] [place] [facility] Dec 03, 2018 12:20 PM VA-TOBACCO USER EVERY DAY [facility] [place] [facility]
[2022-10-01 10:21] LABS: MANUAL DIFF FLAG NO
[2022-10-01 10:27] LABS: Basophils Percent Auto 0.2 % (0-2); Eosinophils Absolute Auto 0.1 X10*3/uL (0.0-0.4); Eosinophils Percent Auto 0.5 % (0-4); Hematocrit 25.8 % (42.0-52.0); Hemoglobin 7.8 g/dl (14.0-18.0); Imm Gran Abs Auto 0.04 X10*3/uL (0.00-0.03); Imm Gran Pct Auto 0.3 % (0.0-0.4); Lymphocytes Absolute Auto 0.5 X10*3/uL (1.2-4.9); Lymphocytes Percent Auto 3.5 % (20-40); Mean Corpuscular HGB Conc 30.2 g/dl (31.0-36.0); Mean Corpuscular Hemoglobin 25.6 pg (27.0-33.0); Mean Corpuscular Volume 84.6 fL (80.0-98.0); Mean Platelet Volume 11.4 fL (9.4-12.4); Monocytes Absolute Auto 0.9 X10*3/uL (0.1-1.2); Monocytes Percent Auto 6.5 % (2-11); Neutrophils Absolute Auto 12.1 x10*3/uL (2.0-8.3); Platelet Count 241 X10*3/uL (160-400); Red Blood Count 3.05 X10*6/uL (4.60-5.80); Red Cell Distribution Width 13.6 % (11.0-16.0); White Blood Count 13.6 X10*3/uL (4.8-10.8)
[2022-10-01 10:34] LABS: INTERNATIONAL NORM RATIO 1.2 (0.9-1.1); Prothrombin Time 14.2 SEC (10.0-13.1)
[2022-10-01 10:36] LABS: Partial Thromboplastin Time 35.7 SEC (26.0-36.4)
[2022-10-01 10:41] LABS: Alanine Aminotransferase 10 U/L (0-40); Albumin Level 4.1 g/dL (3.5-5.0); Alkaline Phosphatase 34 U/L (39-117); Anion Gap 18 (12-20); Aspartate Amino Transferase 13 U/L (5-37); Bilirubin Total 0.2 mg/dL (0.0-1.0); Blood Urea Nitrogen 24 mg/dL (9-16); Calcium 9.8 mg/dL (8.4-10.2); Carbon Dioxide 23 mmol/L (22-29); Chloride 104 mmol/L (96-108); Estimated Glomerular Filt Rate 47; Glucose Random 128 mg/dL (60-115); Magnesium 2.4 mg/dL (1.6-2.6); Potassium 4.4 mmol/L (3.3-5.1); Sodium 141 mmol/L (135-145); Total Protein 6.9 g/dL (6.5-8.0)
[2022-10-01 10:47] LABS: Troponin-I High Sensitivity 14.4 ng/L (<3.5-35.0)
[2022-10-01 10:51] LABS: Lactic Acid 3.4 mmol/L (0.5-2.0)
[2022-10-01] MEDS: 0.9 % Sodium Chloride 1,000 ML 999 ML IV (11:09)
--- NOTE | 2022-10-01 11:30 | PHA.MEDREC ---
Pharmacy Consult ? Medication Reconciliation Pharmacy has completed the medication reconciliation. Patient comes from home with a list that is current. Did med rec using that list. He also wants us to know that he does not like taking antihistamines because it makes it very uncomfortable due to previous surgery causing excessive dryness in his throat.
--- NOTE | 2022-10-01 11:43 | PC.NURSE ---
Provider aware of BP
[2022-10-01 12:24] LABS: Reflex Lactate? Lactic Acid Added
[2022-10-01 13:09] LABS: Immature Retic Fraction 24.2 % (2.3-13.4); Reticulocyte Percent 1.9 % (0.5-1.8); Reticulocytes Absolute 0.056 X10*6/uL (0.026-0.095)
--- NOTE | 2022-10-01 13:16 | PC.NURSE ---
Hemalatha instructed to start blood prior to additional lab results coming back
[2022-10-01 14:00] LABS: Ferritin 16 ng/mL (20-250); Iron 20 mcg/dL (45-160); Lactate Dehydrogenase 183 U/L (118-273); Percent Iron Saturation 5 % (15-50); Total Iron Binding Capacity 401 mcg/dL (228-428); Unsaturated Iron Binding 381 ug/dL
[2022-10-01 14:16] LABS: Folate 9.1 ng/mL (> or = 4.0); Vitamin B12 268 pg/mL (200-900)
--- NOTE | 2022-10-01 16:50 | P.HPHOSP_ITS ---
History of Present Illness Date of Service: 10/01/22 Chief Complaint: confusion 72M with PMH COPD, Chronic hypoxic respiratory failure on 4 L home O2, hypothyroidism, peripheral vascular disease, throat cancer status post radiation complicated by carotid stenosis status post endarterectomy, History of lung cancer status post right lobectomy presented with confusion. Patient is a vague historian. He reports 2 weeks of feeling unwell, constipation, stomach upset, fatigue, denies black stools or hematemesis. notes that patient has been getting confused while in the shower. He gets sleepy, slow to answer, she states she can usually get him out of it, however, on day of admission patient sat down and shower chair and was slumped over and drooling, she noted right upper extremity weakness ( patient is left-handed), patient was alert by the time he came to the ED. in ED noted to be hypotensive with systolic blood pressure in the 80s, anemia with hemoglobin o 7.8, down from 14.6 in February t his year. Review of Systems Review of Systems: Constitutional: Denies fever, denies Chills Eyes: denies blurry vision ENT: denies sore throat CVS: denies chest pain Respiratory: chronic dyspnea GI: no abdominal pain : denies dysuria MSK: denies neck pain Skin: denies rash Neuro: denies specific motor weakness Psych: denies suicidal ideation Endocrine: denies heat/cold intolerance Hematologic: denies easy bleeding Allergy: denies hives REPLACED BY [facility] Medical History Chronic sinusitis Claudication in peripheral vascular disease COPD (chronic obstructive pulmonary disease) Decreased oral intake Hypercholesterolemia Hypoxemia Lung cancer Sepsis Throat cancer Family History Father No problems noted. Mother No problems noted. Surgical History H/O carotid endarterectomy H/O neck surgery History of carpal tunnel release History of knee surgery History of total left knee replacement S/P tonsillectomy Social History Household Members: Spouse Housing: Condominium Do you presently have visiting nurse or other home services: No Alcohol intake: never Patient Tobacco Use Status: Former Tobacco user Smoked in Last 30 Days: No Use of substances other than those prescribed or required for medical reasons: No Advance Directives: Yes Advance Directives Information Provided: Yes Advance Directives on File: No service: Yes Current occupational status: retired and disabled Current occupation: right handed Meds Allergies Allergy/AdvReac Type Severity Reaction Status Date / Time moxifloxacin Allergy Numbness Verified 04/23/22 10:06 Active Medications: Current Medications Albuterol Sulfate (Albuterol Sulfate 90 Mcg 8 Gm Inhaler) 2 puff INHALE Q6H PRN PRN Reason: shortness of breath or wheezing Atorvastatin Calcium (Atorvastatin Calcium 40 Mg Tablet) 40 mg PO DAILY [facility] Cyanocobalamin (Cyanocobalamin (Vitamin B-12) 1,000 Mcg Tablet) 1,000 mcg PO DAILY [facility] Levothyroxine Sodium (Levothyroxine Sodium 50 Mcg Tablet) 50 mcg PO DAILY@0600 [facility] Non-Formulary Medication (Tiotropium-Olodaterol [Stiolto Respimat]) 2 puff INHALE DAILY [facility] Pantoprazole Sodium (Pantoprazole Sodium 40 Mg/10 Ml Vial) 40 mg IVPUSH BID@0630,1630 [facility] Pharmacy Consult (Consult Rx Perform Med Rec) 1 each MISCELLANE ONCE PRN PRN Reason: Consult order Home Medications Medication Instructions Recorded Confirmed Last Taken Type aspirin 81 mg chewable tablet 81 mg PO DAILY 11/14/20 10/01/22 10/01/22 History apixaban 5 mg tablet 2.5 mg PO BID 10/01/22 10/01/22 10/01/22 History levothyroxine 50 mcg tablet 50 mcg PO DAILY 10/01/22 10/01/22 10/01/22 History (Synthroid) phenylephrine HCl 0.5 % nasal spray 1 spray intranasal Q4-6H PRN 10/01/22 10/01/22 Unknown History Congestion simvastatin 80 mg tablet 40 mg PO DAILY 10/01/22 10/01/22 10/01/22 History Physical Exam Vital Signs and Narrative: Vital Signs: Last Vital Signs Temp 98 F 10/01/22 16:06 Pulse 66 10/01/22 16:06 Resp 13 10/01/22 16:06 BP 108/57 L 10/01/22 16:06 Pulse Ox 100 10/01/22 16:00 O2 Del Method 10/01/22 16:00 O2 Flow Rate 4 10/01/22 16:00 BMI result Body Mass Index 25.4 General: no acute distress HEENT: atraumatic Neck: normal to visual inspection CVS: S1, S2, RRR Resp: diminished bilateral Chest: non tender GI: soft, non tender, non distended : no CVA tenderness Skin: no rashes Extremities: no edema Neuro: Oriented X3, grossly intact Psych: cooperative Results Labs CBC and Chem 7: 10/01/22 10:14 10/01/22 10:14 Labs: Laboratory Results - last 24 hr 10/01/22 10/01/22 10/01/22 10:14 10:14 10:14 MCV 84.6 MCH 25.6 L MCHC 30.2 L RDW 13.6 Plt Count 241 MPV 11.4 Immature Gran % (Auto) 0.3 Neut % (Auto) 89.0 H Lymph % (Auto) 3.5 L Graham % (Auto) 6.5 Eos % (Auto) 0.5 Baso % (Auto) 0.2 Lymph # (Auto) 0.5 L Graham # (Auto) 0.9 Eos # (Auto) 0.1 Baso # (Auto) 0.0 Abs Immat Gran (auto) 0.04 H Absolute Neuts (auto) 12.1 H Absolute Nucleated RBC 0.000 Nucleated RBC % (auto) 0.0 Absolute Retic Percent Retic Immature Retic Fraction Retic Hgb Equivalent PT 14.2 H INR 1.2 H APTT 35.7 Anion Gap 18 Estim Creat Clear Calc 55.0 Estimated GFR 47 Random Glucose 128 H D Lactic Acid Calcium 9.8 Magnesium 2.4 Iron 20 L TIBC 401 % Saturation 5 L Unsat Iron Binding 381 Ferritin 16 L Total Bilirubin 0.2 AST 13 ALT 10 Alkaline Phosphatase 34 L Lactate Dehydrogenase 183 Troponin I High Sens Total Protein 6.9 Albumin 4.1 Vitamin B12 Folate Blood Type Antibody Screen BHANU, Polyspecific Positive BHANU Work-up Crossmatch 10/01/22 10/01/22 10/01/22 10:14 10:14 10:16 MCV MCH MCHC RDW Plt Count MPV Immature Gran % (Auto) Neut % (Auto) Lymph % (Auto) Graham % (Auto) Eos % (Auto) Baso % (Auto) Lymph # (Auto) Graham # (Auto) Eos # (Auto) Baso # (Auto) Abs Immat Gran (auto) Absolute Neuts (auto) Absolute Nucleated RBC Nucleated RBC % (auto) Absolute Retic Percent Retic Immature Retic Fraction Retic Hgb Equivalent PT INR APTT Anion Gap Estim Creat Clear Calc Estimated GFR Random Glucose Lactic Acid 3.4 H* Calcium Magnesium Iron TIBC % Saturation Unsat Iron Binding Ferritin Total Bilirubin AST ALT Alkaline Phosphatase Lactate Dehydrogenase Troponin I High Sens 14.4 Total Protein Albumin Vitamin B12 Folate Blood Type O Positive Antibody Screen NEGATIVE BHANU, Polyspecific NEGATIVE Positive BHANU Work-up TNP Crossmatch See Detail 10/01/22 10/01/22 12:55 12:55 MCV MCH MCHC RDW Plt Count MPV Immature Gran % (Auto) Neut % (Auto) Lymph % (Auto) Graham % (Auto) Eos % (Auto) Baso % (Auto) Lymph # (Auto) Graham # (Auto) Eos # (Auto) Baso # (Auto) Abs Immat Gran (auto) Absolute Neuts (auto) Absolute Nucleated RBC Nucleated RBC % (auto) Absolute Retic 0.056 Percent Retic 1.9 H Immature Retic Fraction 24.2 H Retic Hgb Equivalent 22.0 L PT INR APTT Anion Gap Estim Creat Clear Calc Estimated GFR Random Glucose Lactic Acid Calcium Magnesium Iron TIBC % Saturation Unsat Iron Binding Ferritin Total Bilirubin AST ALT Alkaline Phosphatase Lactate Dehydrogenase Troponin I High Sens Total Protein Albumin Vitamin B12 268 Folate 9.1 Blood Type Antibody Screen BHANU, Polyspecific Positive BHANU Work-up Crossmatch Imaging Radiologist's Impressions: Impressions Chest X-Ray 10/01/22 09:45 IMPRESSION: Pulmonary and pleural findings consistent with chronic changes including COPD without significant interval change. Cervical Spine CT 10/01/22 10:22 IMPRESSION: Chronic changes noted. No fracture or destructive process. Fleischner guidelines were followed. Head CT 10/01/22 10:27 IMPRESSION: No acute intracranial pathology. Abdomen/Pelvis CT 10/01/22 14:29 IMPRESSION: 1. No acute intra-abdominal process seen. 2. Diffuse colonic diverticulosis without diverticulitis. Mild constipation. 3. 3. Left inguinal hernia containing a loop of sigmoid colon.. No inflammatory process within the hernia. Fleischner guidelines were followed. Assessment and Plan (1) Hypoxemia: Status: Acute Plan 72M with PMH COPD, Chronic hypoxic respiratory failure on 4 L home O2, hypothyroidism, peripheral vascular disease, throat cancer status post radiation complicated by carotid stenosis status post endarterectomy, History of lung cancer status post right lobectomy presented with confusion, found to have anemia metabolic encephalopathy due to hypotension due to irond defeciency anemia likely subacute to chornic bleed holding asa, eliquis ppi gi eval transfused 1 unit, monitor cbc bp and mental status improved RUSSEL due to hypotension, monitor b12 defeciency replace RUE transient weakness cth negative will check mri pvd holding asa, eliquis continue statin hypothyroid synthroid copd with chronic hyopxic resp failure conitnue home o2 inhalers dvt prophylaxis - mechanical due to gi bleed full code patient with singificant anemia likely gi bleed leading to near syncope and significant hypotension, at risk for further decline due to PVD, COPD, chronic hyopxia, therefore, expected to require atleast 2 midnights inpatient. Quality Stroke Does the patient have a stroke diagnosis?: No VTE Prior VTE?: No VTE Risk Level:: Medical - moderate - high VTE Device Contraindication: N/A - Device Ordered VTE Drug Contraindication: Treatment Not Indicated
[2022-10-01 17:00] LABS: COVID-19 Test Negative (Negative); IDNOW Serial# 9DB6401D
[2022-10-01 18:43] LABS: Appearance Urine Clear; Color Urine Yellow; Glucose Urine UA Negative (Negative); Leukocyte Esterase Urine Negative (Negative); Nitrite Urine Negative (Negative); PH 6.5 (5.0-9.0); Specific Gravity - Urine 1.015 (1.005-1.025); Urine Blood Negative (Negative); Urine Ketones Negative (Negative); Urine Protein Trace mg/dL (Neg-Trace)
--- NOTE | 2022-10-01 18:57 | PC.NURSE ---
Report called to nurse on [facility]. Says she is unable to do admission and next shift will have to take it
--- NOTE | 2022-10-01 19:01 | PC.NURSE ---
MRI took patient to test without vehicle monitor technician before consulting this RN
[2022-10-01] MEDS: 0.9 % Sodium Chloride Flush 3 ML SYRINGE IVFLUSH (23:40)
[2022-10-02 03:15] VITALS: BP 148/73; PULSE 69; RESP 16; TEMP 36.9; O2SAT 98
[2022-10-02] MEDS: Pantoprazole Sodium 40 MG/10 ML VIAL IVPUSH ×2 (06:30→15:49)
[2022-10-02] MEDS: Levothyroxine Sodium 50 MCG TABLET PO (06:30)
[2022-10-02 07:59] LABS: Hematocrit 25.3 % (42.0-52.0); Hemoglobin 7.6 g/dl (14.0-18.0); Mean Corpuscular Hemoglobin 25.4 pg (27.0-33.0); Mean Corpuscular Volume 84.6 fL (80.0-98.0); Mean Platelet Volume 11.1 fL (9.4-12.4); Platelet Count 202 X10*3/uL (160-400); Red Blood Count 2.99 X10*6/uL (4.60-5.80); White Blood Count 7.7 X10*3/uL (4.8-10.8)
[2022-10-02 08:00] VITALS: BP 114/63; PULSE 65; RESP 17; TEMP 37.1; O2SAT 99
[2022-10-02 08:14] LABS: Anion Gap 13 (12-20); Blood Urea Nitrogen 21 mg/dL (9-16); Carbon Dioxide 25 mmol/L (22-29); Chloride 108 mmol/L (96-108); Estimated Glomerular Filt Rate > 60; Glucose Fasting 100 mg/dL (60-99); Magnesium 2.2 mg/dL (1.6-2.6); Potassium 4.5 mmol/L (3.3-5.1); Sodium 141 mmol/L (135-145)
[2022-10-02] MEDS: Cyanocobalamin (Vitamin B-12) 1,000 MCG TABLET 1000 MCG PO (09:20)
[2022-10-02] MEDS: 0.9 % Sodium Chloride Flush 3 ML SYRINGE IVFLUSH ×3 (09:20→21:19)
[2022-10-02] MEDS: Atorvastatin Calcium 40 MG TABLET PO (09:20)
[2022-10-02 11:37] VITALS: BP 125/75; PULSE 75; RESP 17; TEMP 37.1; O2SAT 98
--- NOTE | 2022-10-02 11:49 | PM.NEUROCN ---
History of Present Illness Data of Consult Service Date: 10/02/22 Primary Care Provider: Carlo Lo MD [facility] Reason for consult: RUE weakness. AMS This is a 72yr man with COPD, Chronic hypoxic respiratory failure on 4 L home O2, hypothyroidism, peripheral vascular disease, throat cancer status post radiation complicated by carotid stenosis, status post endarterectomy, ? History of lung cancer status post right lobectomy. He presented to [facility] with confusion.? Patient is a poor historian reprting 2 weeks of feeling unwell, constipation, stomach upset, fatigue. Denies black stools or hematemesis. His? notes that patient has been getting confused while in the shower.? He gets sleepy, slow to answer, she states she can usually get him out of it, however,? on day of admission patient sat down and shower chair and was slumped over and drooling, she noted right upper extremity weakness ( patient is left-handed). The states that this is happened 4 times, each time in the shower.He was noted to be hypotensive with systolic blood pressure in the 80s, anemia with hemoglobin o 7.8,? down from 14.6 in? February this year. CT shows old right thalamic lacune and MRI shows no acute findings. Old lacunar infarcts and white matter microvascular changes R>L Review of Systems Review of Systems: Constitutional: Denies fever, denies Chills Eyes: denies blurry vision ENT: denies sore throat CVS: denies chest pain Respiratory: chronic dyspnea GI: no abdominal pain : denies dysuria MSK: denies neck pain Skin: denies rash Neuro: denies specific motor weakness Psych: denies suicidal ideation Endocrine: denies heat/cold intolerance Hematologic: denies easy bleeding Allergy: denies hives Constitutional: Constitutional: Reports no additional constitutional complaints, Denies chills, Denies fever(s), Denies night sweats and Reports weakness Eyes: Eyes: Reports no additional eye complaints, Denies blurry vision, Denies change in vision, Denies diplopia, Denies eye discharge, Denies loss of vision and Denies eye pain ENT: Denies dizziness Cardiovascular: Cardiovascular: Reports no additional cardiovascular complaints, Denies chest pain, Denies lightheadedness, Denies Loss of Consciousness and Denies dyspnea Respiratory: Respiratory: Reports no additional respiratory complaints and Denies dyspnea Gastrointestinal: Gastrointestinal: Reports no additional gastrointestinal complaints, Denies abdominal pain, Denies melena, Denies hematochezia, Denies change in bowel habits and Denies change in stool character Genitourinary: Genitourinary: Reports no additional male genitourinary complaints, Denies hematuria, Denies oliguria, Denies difficulty urinating, Denies dysuria, Denies urinary frequency, Denies urinary hesitancy, Denies urinary incontinence and Denies urinary urgency Musculoskeletal: Musculoskeletal: Reports no additional musculoskeletal complaints, Denies numbness and Denies tingling Neurologic: Denies dizziness, Denies loss of vision, Denies numbness, Denies tingling and Reports weakness Psychiatric: Psychiatric: Reports no additional psychiatric complaints Endocrine: Endocrine: Reports no additional endocrine complaints Hematologic/Lymphatic: Hematologic/Lymphatic: Reports no additional hematologic/lymphatic complaints Allergic/Immunologic: Allergic/Immunologic: Reports no additional allergic/immunologic complaints PMFSH Past Medical History Medical History Chronic sinusitis Claudication in peripheral vascular disease COPD (chronic obstructive pulmonary disease) Decreased oral intake Hypercholesterolemia Hypoxemia Lung cancer Sepsis Throat cancer Family History Family History Father No problems noted. Mother No problems noted. Surgical History Surgical History H/O carotid endarterectomy H/O neck surgery History of carpal tunnel release History of knee surgery History of total left knee replacement S/P tonsillectomy Social History Social History Household Members: Spouse Housing: Condominium Do you presently have visiting nurse or other home services: No Alcohol intake: never Patient Tobacco Use Status: Former Tobacco user Tobacco use type: Cigarette Second Hand Smoke Exposure: No Advance Directives Date on File: 10/01/22 service: Yes Current occupational status: retired and disabled Current occupation: right handed Meds Allergies Allergy/AdvReac Type Severity Reaction Status Date / Time moxifloxacin Allergy Numbness Verified 04/23/22 10:06 Active Medications: Current Medications Albuterol Sulfate (Albuterol Sulfate 90 Mcg 8 Gm Inhaler) 2 puff INHALE Q6H PRN PRN Reason: shortness of breath or wheezing Atorvastatin Calcium (Atorvastatin Calcium 40 Mg Tablet) 40 mg PO DAILY [facility] Last Admin: 10/02/22 09:20 Dose: 40 mg Cyanocobalamin (Cyanocobalamin (Vitamin B-12) 1,000 Mcg Tablet) 1,000 mcg PO DAILY [facility] Last Admin: 10/02/22 09:20 Dose: 1,000 mcg Levothyroxine Sodium (Levothyroxine Sodium 50 Mcg Tablet) 50 mcg PO DAILY@0600 [facility] Last Admin: 10/02/22 06:30 Dose: 50 mcg Non-Formulary Medication (Tiotropium-Olodaterol [Stiolto Respimat]) 2 puff INHALE DAILY [facility] Pantoprazole Sodium (Pantoprazole Sodium 40 Mg/10 Ml Vial) 40 mg IVPUSH BID@0630,1630 [facility] Last Admin: 10/02/22 06:30 Dose: 40 mg Pharmacy Consult (Consult Rx Perform Med Rec) 1 each MISCELLANE ONCE PRN PRN Reason: Consult order Sodium Chloride (0.9 % Sodium Chloride Flush 3 Ml Syringe) 3 ml IVFLUSH QSHIFT [facility] Last Admin: 10/02/22 09:20 Dose: 3 ml Home Medications Medication Instructions Recorded Confirmed Last Taken Type aspirin 81 mg chewable tablet 81 mg PO DAILY 11/14/20 10/01/22 10/01/22 History apixaban 5 mg tablet 2.5 mg PO BID 10/01/22 10/01/22 10/01/22 History levothyroxine 50 mcg tablet 50 mcg PO DAILY 10/01/22 10/01/22 10/01/22 History (Synthroid) phenylephrine HCl 0.5 % nasal spray 1 spray intranasal Q4-6H PRN 10/01/22 10/01/22 Unknown History Congestion simvastatin 80 mg tablet 40 mg PO DAILY 10/01/22 10/01/22 10/01/22 History Physical Exam Vital Signs: Vital Signs: Last Vital Signs Temp 98.8 F 10/02/22 11:37 Pulse 75 10/02/22 11:37 Resp 17 10/02/22 11:37 BP 125/75 10/02/22 11:37 Pulse Ox 98 10/02/22 11:37 O2 Del Method 10/02/22 11:37 O2 Flow Rate 4 10/02/22 11:37 BMI result Body Mass Index 26.1 Const: General: cooperative, no acute distress, alert and awake Nutritional Appearance: well nourished Orientation/consciousness: patient oriented x3 Limitations: no limitations HEENT: Head: Yes normal to inspection and Yes atraumatic Ears: hearing grossly normal bilaterally and external ears normal General nose exam: Normal external nose present, no nasal discharge noted and no epistaxis Face and sinus: Yes normal facial exam, No abrasion and No laceration Mouth: Normal oral and palatal mucosa present, no drooling and no muffled voice Eyes: General: appearance normal, both eyes and all related structures Periorbital: periorbital findings normal Eyelids: Yes eyelids normal Conjunctivae: conjunctivae normal Pupils: Equal, round and reactive pupils present EOM: EOMs intact bilaterally Neck: Neck: Yes normal visual inspection, Yes full ROM and Yes no lymphadenopathy Chest: Chest palpation & inspection: normal inspection of the chest Resp: Effort & Inspection: normal respiratory effort, able to speak in complete sentences and other (patient on 2L of oxygen via [place] chronically) Auscultation: clear to auscultation bilaterally Cardio: Rate: regular rate Rhythm: regular rhythm GI: Inspection: Yes normal to inspection Neuro: Other: Nonfocal examination. Alert oriented x3 General: patient oriented x3 and moves all extremities Cranial nerves: Yes Equal, round and reactive pupils present Cognition (Neuro): normal cognition Motor exam (neuro): 5/5 motor strength present throughout Sensory Exam: Normal double simultaneous stimulation for sensation Coordination: [id number] test normal Extrem: General: Yes normal to inspection, Yes full ROM and Yes capillary refill normal Psych: Appearance: grossly normal Mental Status: mental status grossly normal Affect: normal affect Attitude: cooperative Thought process: Normal thought process present Thought content: Normal thought content present Insight: Good insight present (Psych) Results Labs CBC & Chem 7: 10/02/22 07:51 10/02/22 07:51 Labs: Short CBC 10/02/22 Range/Units 07:51 WBC 7.7 (4.8-10.8) X10*3/uL Hgb 7.6 L (14.0-18.0) g/dl Hct 25.3 L (42.0-52.0) % Plt Count 202 (160-400) X10*3/uL BMP 10/02/22 07:51 Sodium 141 Potassium 4.5 Chloride 108 Carbon Dioxide 25 BUN 21 H Creatinine 1.14 Calcium 9.0 D Urine 10/01/22 Range/Units 18:01 Urine Color Yellow Urine Appearance Clear Urine pH 6.5 (5.0-9.0) Ur Specific [place] 1.015 (1.005-1.025) Urine Protein Trace (Neg-Trace) mg/dL Urine Glucose (UA) Negative (Negative) mg/dL Assessment and Plan (1) Hypoxemia: Status: Acute (2) Anemia: Status: Acute GI workup for her bleeding including upper and lower Endoscopy Plan 72M with 3 episodes of altered mentation on one occasion with the right upper extremity weakness that was transient. It's unclear if he gets hypoxic in the shower. He has chronic hypoxemia. TIA cannot be ruled out. Hiis MRI does not show any acute lesions. He has chronic microangiopathy particularly in the right hemisphere in a periventricular distribution and is sizable chronic lacunar infarct in the right thalamus. Before his throat cancer he use to have severe hypertension. Recommend carotid Doppler. Procedures Date of Service Date of Service: 10/02/22
--- NOTE | 2022-10-02 14:33 | P.PNIM_ITS ---
Subjective Subjective Date of Service: 10/02/22 Interval History: cc: ams interval history: at baseline, hungry Cardiovascular Cardiovascular: Reports no additional cardiovascular complaints Respiratory Respiratory: Reports no additional respiratory complaints Physical Exam Vital Signs: Vital Signs: Last Vital Signs Temp 98.8 F 10/02/22 11:37 Pulse 75 10/02/22 11:37 Resp 17 10/02/22 11:37 BP 125/75 10/02/22 11:37 Pulse Ox 98 10/02/22 11:37 O2 Del Method 10/02/22 11:37 O2 Flow Rate 4 10/02/22 11:37 BMI result Body Mass Index 26.1 General: AO X 3, no acute distress Resp: CTA bilateral, no accessory muscles used CVS: S1,S2,RRR GI: soft, non tender, non distended Neuro: motor grossly intact, alert Psych: appropriate affect, appropriate insight Objective Data Active Medications Albuterol Sulfate (Albuterol Sulfate 90 Mcg 8 Gm Inhaler) 2 puff INHALE Q6H PRN PRN Reason: shortness of breath or wheezing Atorvastatin Calcium (Atorvastatin Calcium 40 Mg Tablet) 40 mg PO DAILY [facility] Last Admin: 10/02/22 09:20 Dose: 40 mg Documented By: PERCIO Cyanocobalamin (Cyanocobalamin (Vitamin B-12) 1,000 Mcg Tablet) 1,000 mcg PO DAILY [facility] Last Admin: 10/02/22 09:20 Dose: 1,000 mcg Documented By: PERICO Levothyroxine Sodium (Levothyroxine Sodium 50 Mcg Tablet) 50 mcg PO DAILY@0600 [facility] Last Admin: 10/02/22 06:30 Dose: 50 mcg Documented By: JANIA Non-Formulary Medication (Tiotropium-Olodaterol [Stiolto Respimat]) 2 puff INHALE DAILY [facility] Pantoprazole Sodium (Pantoprazole Sodium 40 Mg/10 Ml Vial) 40 mg IVPUSH BID@0630,1630 [facility] Last Admin: 10/02/22 06:30 Dose: 40 mg Documented By: JANIA Pharmacy Consult (Consult Rx Perform Med Rec) 1 each MISCELLANE ONCE PRN PRN Reason: Consult order Sodium Chloride (0.9 % Sodium Chloride Flush 3 Ml Syringe) 3 ml IVFLUSH QSHIFT [facility] Last Admin: 10/02/22 09:20 Dose: 3 ml Documented By: PERICO Labs CBC & Chem 7: 10/02/22 07:51 10/02/22 07:51 Labs: Laboratory Results - last 24 hr 10/01/22 10/01/22 10/01/22 10:14 16:29 16:29 MCV MCH MCHC RDW Plt Count MPV Absolute Nucleated RBC Nucleated RBC % (auto) Anion Gap Estim Creat Clear Calc Estimated GFR Fasting Glucose Lactic Acid F/U @ 2Hr 1.0 Calcium Magnesium Urine Color Urine Appearance Urine pH Ur Specific [place] Urine Protein Urine Glucose (UA) Urine Ketones Urine Blood Urine Nitrite Ur Leukocyte Esterase COVID-19 (ROXY) Negative COVID-19 Clin Com See Note Crossmatch See Detail 10/01/22 10/02/22 10/02/22 18:01 07:51 07:51 MCV 84.6 MCH 25.4 L MCHC 30.0 L RDW 14.0 Plt Count 202 MPV 11.1 Absolute Nucleated RBC 0.000 Nucleated RBC % (auto) 0.0 Anion Gap 13 Estim Creat Clear Calc 71.0 Estimated GFR > 60 Fasting Glucose 100 H Lactic Acid F/U @ 2Hr Calcium 9.0 D Magnesium 2.2 Urine Color Yellow Urine Appearance Clear Urine pH 6.5 Ur Specific [place] 1.015 Urine Protein Trace Urine Glucose (UA) Negative Urine Ketones Negative Urine Blood Negative Urine Nitrite Negative Ur Leukocyte Esterase Negative COVID-19 (ROXY) COVID-19 Clin Com Crossmatch Microbiology Microbiology Results: Microbiology 10/01/22 10:16 Blood Culture - Preliminary Blood - Venous No growth after 24 hours. 10/01/22 10:13 Blood Culture - Preliminary Blood - Venous No growth after 24 hours. Assessment and Plan (1) Anemia: Status: Acute Plan 72M with PMH COPD, ? Chronic hypoxic respiratory failure on 4 L home O2, hypothyroidism, peripheral vascular disease, throat cancer status post radiation complicated by carotid stenosis status post endarterectomy, ? History of lung cancer status post right lobectomy presented with confusion, found to have anemia metabolic encephalopathy due to hypotension due to iron defeciency anemia in setting of history of radiation, esophogeal stricture s/p ballooning likely subacute to chronic bleed holding asa, eliquis ppi gi eval transfused 1 unit 10/01/22, monitor cbc bp and mental status improved RUSSEL due to hypotension, imrpoved b12 defeciency replace RUE transient weakness cth negative MRI with question of acute infarct - neuro eval pvd holding asa, eliquis continue statin hypothyroid synthroid copd with chronic hyopxic resp failure continue home o2 inhalers dvt prophylaxis - mechanical due to gi bleed full code reason for continued hospitalization:melvi gi bleed work up Quality Stroke Does the patient have a stroke diagnosis?: No VTE Prior VTE?: No VTE Risk Level:: Medical - moderate - high VTE Device Contraindication: N/A - Device Ordered VTE Drug Contraindication: Treatment Not Indicated
[2022-10-02 15:06] LABS: Haptoglobin 203 mg/dL (43-212)
[2022-10-02 15:34] VITALS: BP 114/63; PULSE 79; RESP 18; TEMP 36.8; O2SAT 100
--- NOTE | 2022-10-02 16:00 | MHC.CM.PN ---
spoke with pts who indicated that pt has been independent prior to admisison driving to his appts he is coviod vax x 5 [facility] ,pt [facility] 02 dc plan tbd by pt yesica
--- NOTE | 2022-10-02 16:11 | P.EN_ITS ---
Event Note Date of Service: 10/02/22 Event Note: GI consult dictated new onset anemia with iron deficiency he had upper endoscopy in Jul at [facility] with ballon dilation of a radiation related stricture he has been getting reflux for the last 3 mos, treating with otc antacids his father had colon cancer and Daniel has never had a colonoscopy EGD/colonsocopy scheduled for 10/04 after clear liquids and bowel prep tomorrow. last dose of eliquis was yest am. he understands risks and benefits and agrees to proceed.
[2022-10-02 19:19] VITALS: BP 118/60; PULSE 81; RESP 20; TEMP 36.9; O2SAT 100
--- NOTE | 2022-10-02 22:52 | CONS_ITS ---
DATE OF SERVICE: 10/02/2022 REFERRING PHYSICIAN: Martin Fontanez MD REASON FOR CONSULTATION: Anemia. HISTORY OF PRESENT ILLNESS: The patient is a pleasant 72-year-old man whom was admitted to the hospital on October 01 after presenting to the emergency room with multiple complaints. He has had some general malaise for 2 weeks with some constipation and upset stomach. Reports about 3 months of reflux symptoms, which he has been treating with [id number] antacids. He does have a history of previously undergoing upper endoscopy with balloon dilation of radiation-induced esophageal stricture in July at [facility]. Since that time, swallowing has been fairly good. He has no complaints of dysphagia, hematemesis or melena. He had some confusion at home and possible TIA symptoms and was evaluated in the emergency department yesterday after coming to the emergency room by ambulance. He was somewhat hypotensive with systolic blood pressure in the 80s. Lab work showed a new anemia with a hematocrit of 25.8 down from 44 in February. He reports recent blood work done through the [place] several months ago did not indicate any anemia. He was evaluated with imaging including an abdomen and pelvic CT, which is reviewed and showed diverticulosis, but no diverticulitis. He also had a left inguinal hernia containing a loop of sigmoid colon. He has a family history of colon cancer and has never undergone colonoscopy. His father had colon cancer. Iron studies documented iron deficiency with a saturation of 5% and a ferritin of 16. He states he has always been anemic and had low iron levels. Did receive 1 unit of packed red blood cells and his hematocrit this morning was basically unchanged at 25.3. He has had no melena or hematochezia. Stool occult blood testing has not been obtained. PAST MEDICAL HISTORY: 1. 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 2. Lung cancer with right lobectomy. 3. Chronic hypoxic respiratory failure, on home oxygen. 4. Peripheral vascular disease. 5. COPD. 6. Hypercholesterolemia. 7. Carotid endarterectomy and stent placement. 8. Neck surgery. 9. Knee surgery. CURRENT MEDICATIONS: Current medication list is reviewed in the chart. He has been on aspirin and Eliquis. His last dose of Eliquis was yesterday by his report. He states he takes this for blood clots. ALLERGIES: ALLERGY INFORMATION WAS REVIEWED IN ELECTRONIC MEDICAL RECORD. FAMILY HISTORY: His father had colon cancer. SOCIAL HISTORY: He quit smoking about a year ago. He states he rarely drinks alcohol. REVIEW OF SYSTEMS: SKIN: No pruritus. HEENT: Negative. CARDIOPULMONARY: No shortness of breath or chest pain. GASTROINTESTINAL: As above. GENITOURINARY: Negative. NEUROPSYCHIATRIC: Negative. PHYSICAL EXAMINATION: GENERAL: Shows a pleasant male, lying comfortably in bed. VITAL SIGNS: Stable. SKIN: Anicteric. HEENT: Shows no scleral icterus. NECK: Without lymphadenopathy or thyromegaly. LUNGS: Clear. HEART: Shows regular rate and rhythm. S1, S2. No murmur. ABDOMEN: Soft without focal mass or tenderness. Bowel sounds are present. No organomegaly is noted. EXTREMITIES: Without edema. LABORATORY DATA: Reviewed as his CT scan. IMPRESSION: Iron deficiency anemia. He has risk factors for GI blood loss from both upper and lower GI tract with his family history of colon cancer and his use of aspirin as well as anti-inflammatory as well as Eliquis. I would recommend that he undergo upper endoscopy. I have discussed risks and benefits of the procedure. He should also have colonoscopy and is aware of the risks of this. This will be arranged for 10/04 after clear liquids and a bowel prep tomorrow. Thanks for asking me to see him. I will follow him in the hospital with you. MD ANKUR Marsh/DORETHA / [phone]
[2022-10-03] VITALS (10 sets, daily range): BP systolic 103–148; BP diastolic 56–70; PULSE 61–88; RESP 16–20; TEMP 36.6–37.2; O2SAT 95–100
[2022-10-03] MEDS: Levothyroxine Sodium 50 MCG TABLET PO (05:45)
[2022-10-03] MEDS: Pantoprazole Sodium 40 MG/10 ML VIAL IVPUSH ×2 (05:45→17:13)
[2022-10-03 06:56] LABS: Hematocrit 24.5 % (42.0-52.0); Hemoglobin 7.6 g/dl (14.0-18.0); Mean Corpuscular Hemoglobin 25.9 pg (27.0-33.0); Mean Corpuscular Volume 83.3 fL (80.0-98.0); Mean Platelet Volume 11.8 fL (9.4-12.4); Platelet Count 199 X10*3/uL (160-400); Red Blood Count 2.94 X10*6/uL (4.60-5.80); Red Cell Distribution Width 14.2 % (11.0-16.0); White Blood Count 6.6 X10*3/uL (4.8-10.8)
[2022-10-03 07:22] LABS: Anion Gap 14 (12-20); Blood Urea Nitrogen 20 mg/dL (9-16); Calcium 8.9 mg/dL (8.4-10.2); Carbon Dioxide 24 mmol/L (22-29); Chloride 104 mmol/L (96-108); Creatinine Clr Calc Pharmacy 69.2; Estimated Glomerular Filt Rate > 60; Glucose Fasting 101 mg/dL (60-99); Potassium 4.4 mmol/L (3.3-5.1); Sodium 138 mmol/L (135-145)
[2022-10-03] MEDS: Cyanocobalamin (Vitamin B-12) 1,000 MCG TABLET 1000 MCG PO (09:03)
[2022-10-03] MEDS: Atorvastatin Calcium 40 MG TABLET PO (09:03)
[2022-10-03] MEDS: 0.9 % Sodium Chloride Flush 3 ML SYRINGE IVFLUSH ×2 (09:04→17:13)
--- NOTE | 2022-10-03 12:48 | MHC.CM.PN ---
per rounds pt to have a colonoscopy and is not ready for dc plan remains home no service
[2022-10-03] MEDS: PEG 3350/Na Sulf,Bicarb,Cl/KCL 4,000 ML SOLN.RECON 4000 ML PO (13:32)
--- NOTE | 2022-10-03 13:51 | HO.PM.IMPN ---
Subjective Subjective Date of Service: 10/03/22 Physical Exam Vital Signs: Vital Signs: Last Vital Signs Temp 97.8 F 10/03/22 12:24 Pulse 66 10/03/22 12:24 Resp 20 10/03/22 12:24 BP 104/64 10/03/22 12:24 Pulse Ox 99 10/03/22 11:58 O2 Del Method 10/03/22 11:58 O2 Flow Rate 4 10/03/22 11:58 BMI result Body Mass Index 26.1 Objective Data Active Medications Albuterol Sulfate (Albuterol Sulfate 90 Mcg 8 Gm Inhaler) 2 puff INHALE Q6H PRN PRN Reason: shortness of breath or wheezing Atorvastatin Calcium (Atorvastatin Calcium 40 Mg Tablet) 40 mg PO DAILY [facility] Last Admin: 10/03/22 09:03 Dose: 40 mg Documented By: PERICO Cyanocobalamin (Cyanocobalamin (Vitamin B-12) 1,000 Mcg Tablet) 1,000 mcg PO DAILY [facility] Last Admin: 10/03/22 09:03 Dose: 1,000 mcg Documented By: PERICO Levothyroxine Sodium (Levothyroxine Sodium 50 Mcg Tablet) 50 mcg PO DAILY@0600 [facility] Last Admin: 10/03/22 05:45 Dose: 50 mcg Documented By: NATALIE Non-Formulary Medication (Tiotropium-Olodaterol [Stiolto Respimat]) 2 puff INHALE DAILY [facility] Pantoprazole Sodium (Pantoprazole Sodium 40 Mg/10 Ml Vial) 40 mg IVPUSH BID@0630,1630 [facility] Last Admin: 10/03/22 05:45 Dose: 40 mg Documented By: NATALIE Pharmacy Consult (Consult Rx Perform Med Rec) 1 each MISCELLANE ONCE PRN PRN Reason: Consult order Sodium Chloride (0.9 % Sodium Chloride Flush 3 Ml Syringe) 3 ml IVFLUSH QSHIFT [facility] Last Admin: 10/03/22 09:04 Dose: 3 ml Documented By: PERICO Labs CBC & Chem 7: 10/03/22 05:44 10/03/22 05:44 Labs: Laboratory Results - last 24 hr 10/01/22 10/01/22 10/03/22 10:14 12:55 05:44 MCV 83.3 MCH 25.9 L MCHC 31.0 RDW 14.2 Plt Count 199 MPV 11.8 Absolute Nucleated RBC 0.000 Nucleated RBC % (auto) 0.0 Haptoglobin 203 Anion Gap Estim Creat Clear Calc Estimated GFR Fasting Glucose Calcium Blood Type O Positive Antibody Screen NEGATIVE BHANU, Polyspecific NEGATIVE Positive BHANU Work-up TNP Crossmatch See Detail 10/03/22 05:44 MCV MCH MCHC RDW Plt Count MPV Absolute Nucleated RBC Nucleated RBC % (auto) Haptoglobin Anion Gap 14 Estim Creat Clear Calc 69.2 Estimated GFR > 60 Fasting Glucose 101 H Calcium 8.9 Blood Type Antibody Screen BHANU, Polyspecific Positive BHANU Work-up Crossmatch Microbiology Microbiology Results: Microbiology 10/01/22 10:16 Blood Culture - Preliminary Blood - Venous No growth after 48 hours. 10/01/22 10:13 Blood Culture - Preliminary Blood - Venous No growth after 48 hours. Assessment and Plan (1) Anemia: Status: Acute (2) Hypoxemia: Status: Acute (3) Acute kidney injury: Status: Acute (4) Acute on chronic blood loss anemia: Status: Acute Plan 72M with PMH COPD, ? Chronic hypoxic respiratory failure on 4 L home O2, hypothyroidism, peripheral vascular disease, throat cancer status post radiation complicated by carotid stenosis status post endarterectomy, ? History of lung cancer status post right lobectomy presented with confusion, found to have anemia metabolic encephalopathy, resolved due to hypotension due to iron defeciency anemia in setting of history of radiation, esophogeal stricture s/p ballooning Continue holding asa, eliquis Continue ppi GI to do upper and lower endoscopy tomorrow Acute blood loss anemia Hemoglobin 7.6 To give a 2nd unit, keep goal above 8 monitor cbc BP and mental status improved RUSSEL due to hypotension, imrpoved b12 defeciency replace RUE transient weakness cth negative Neurology input appreciated, no evidence of acute infarct on MRI Pending carotid ultrasound pvd holding asa, eliquis continue statin hypothyroid synthroid copd with chronic hyopxic resp failure continue home o2 inhalers dvt prophylaxis - mechanical due to gi bleed full code reason for continued hospitalization: Pending upper and lower endoscopy for GI bleed, monitoring H&H. Quality Stroke Does the patient have a stroke diagnosis?: No VTE Prior VTE?: No VTE Risk Level:: Medical - moderate - high VTE Device Contraindication: N/A - Device Ordered VTE Drug Contraindication: Treatment Not Indicated
--- NOTE | 2022-10-03 15:16 | PM.GIPN ---
Subjective Subjective Date of Service: 10/03/22 Interval History: taking bowel prep Critical Care Time (minutes): 0 Physical Exam Vital Signs: Vital Signs: Last Vital Signs Temp 97.8 F 10/03/22 12:24 Pulse 66 10/03/22 12:24 Resp 20 10/03/22 12:24 BP 104/64 10/03/22 12:24 Pulse Ox 99 10/03/22 11:58 O2 Del Method 10/03/22 11:58 O2 Flow Rate 4 10/03/22 11:58 BMI result Body Mass Index 26.1 GI: Other: abdomen is soft and non tender Objective Data Labs CBC & Chem 7: 10/03/22 05:44 10/03/22 05:44 Labs: Laboratory Results - last 24 hr 10/01/22 10/03/22 10/03/22 10:14 05:44 05:44 WBC 6.6 RBC 2.94 L Hgb 7.6 L Hct 24.5 L MCV 83.3 MCH 25.9 L MCHC 31.0 RDW 14.2 Plt Count 199 MPV 11.8 Absolute Nucleated RBC 0.000 Nucleated RBC % (auto) 0.0 Sodium 138 Potassium 4.4 Chloride 104 Carbon Dioxide 24 Anion Gap 14 BUN 20 H Creatinine 1.17 Estim Creat Clear Calc 69.2 Estimated GFR > 60 Fasting Glucose 101 H Calcium 8.9 Blood Type O Positive Antibody Screen NEGATIVE BHANU, Polyspecific NEGATIVE Positive BHANU Work-up TNP Crossmatch See Detail Microbiology Microbiology Results: Microbiology 10/01/22 10:16 Blood - Venous Blood Culture - Preliminary No growth after 48 hours. 10/01/22 10:13 Blood - Venous Blood Culture - Preliminary No growth after 48 hours. Procedures Date of Service Date of Service: 10/03/22 Progress Note: A&P Assessment and plan (1) Acute on chronic blood loss anemia: Status: Acute Assessment and Plan: egd/colonoscopy tomorrow for further evaluation of CHRISTIANO Time Spent With Patient Time: Total time spent is greater than 50% in coordination of care (as documented) at patient's floor/unit and/or counseling patient: Quality Stroke Does the patient have a stroke diagnosis?: No VTE Prior VTE?: No VTE Risk Level:: Medical - moderate - high VTE Device Contraindication: N/A - Device Ordered VTE Drug Contraindication: Treatment Not Indicated
[2022-10-04] MEDS: 0.9 % Sodium Chloride Flush 3 ML SYRINGE IVFLUSH ×2 (01:50→10:08)
[2022-10-04 03:11] VITALS: BP 126/72; PULSE 69; RESP 20; TEMP 37.1; O2SAT 94
[2022-10-04] MEDS: Levothyroxine Sodium 50 MCG TABLET PO (05:59)
[2022-10-04] MEDS: Pantoprazole Sodium 40 MG/10 ML VIAL IVPUSH (06:02)
[2022-10-04 06:40] LABS: Hematocrit 31.3 % (42.0-52.0); Hemoglobin 9.6 g/dl (14.0-18.0); Mean Corpuscular HGB Conc 30.7 g/dl (31.0-36.0); Mean Corpuscular Hemoglobin 25.7 pg (27.0-33.0); Mean Corpuscular Volume 83.9 fL (80.0-98.0); Mean Platelet Volume 11.6 fL (9.4-12.4); Platelet Count 237 X10*3/uL (160-400); Red Blood Count 3.73 X10*6/uL (4.60-5.80); Red Cell Distribution Width 14.6 % (11.0-16.0); White Blood Count 8.3 X10*3/uL (4.8-10.8)
[2022-10-04 06:41] VITALS: BP 125/72; PULSE 80; RESP 16; TEMP 36.5; O2SAT 97
--- NOTE | 2022-10-04 07:30 | P.CONAN_ITS ---
[facility] Active Problems Active Problems: All Active Problems (Updated 10/03/22 @ 14:10 by Liyah Hutchinson MD) Acute on chronic blood loss anemia (Acute) Acute kidney injury (Acute) Anemia (Acute) Hypoxemia (Acute) COPD (chronic obstructive pulmonary disease) (Acute) Pulmonary aspiration (Acute) Acute respiratory failure with hypoxia (Acute) COPD exacerbation (Acute) Pneumonia (Acute) Mey-prosthetic supracondylar fracture of femur (Acute) History of total left knee replacement (Acute) Claudication in peripheral vascular disease (Acute) Past Medical History Medical History Chronic sinusitis Claudication in peripheral vascular disease COPD (chronic obstructive pulmonary disease) Decreased oral intake Hypercholesterolemia Hypoxemia Lung cancer Sepsis Throat cancer Family History Family History Father No problems noted. Mother No problems noted. Family history of problems with anesthesia: No Surgical History Surgical History H/O carotid endarterectomy H/O neck surgery History of carpal tunnel release History of knee surgery History of total left knee replacement S/P tonsillectomy History of Problems with Anesthesia: No Social History Social History Household Members: [facility] Do you presently have visiting nurse or other home services: No Alcohol intake: never Patient Tobacco Use Status: Former Tobacco user Tobacco use type: Cigarette Second Hand Smoke Exposure: No Advance Directives Date on File: 10/01/22 service: Yes Current occupational status: retired and disabled Current occupation: right handed Meds Allergies Allergy/AdvReac Type Severity Reaction Status Date / Time moxifloxacin Allergy Numbness Verified 04/23/22 10:06 Active Medications: Current Medications Albuterol Sulfate (Albuterol Sulfate 90 Mcg 8 Gm Inhaler) 2 puff INHALE Q6H PRN PRN Reason: shortness of breath or wheezing Atorvastatin Calcium (Atorvastatin Calcium 40 Mg Tablet) 40 mg PO DAILY [facility] Last Admin: 10/03/22 09:03 Dose: 40 mg Cyanocobalamin (Cyanocobalamin (Vitamin B-12) 1,000 Mcg Tablet) 1,000 mcg PO DAILY [facility] Last Admin: 10/03/22 09:03 Dose: 1,000 mcg Levothyroxine Sodium (Levothyroxine Sodium 50 Mcg Tablet) 50 mcg PO DAILY@0600 [facility] Last Admin: 10/04/22 05:59 Dose: 50 mcg Non-Formulary Medication (Tiotropium-Olodaterol [Stiolto Respimat]) 2 puff INHALE DAILY [facility] Pantoprazole Sodium (Pantoprazole Sodium 40 Mg/10 Ml Vial) 40 mg IVPUSH BID@0630,1630 [facility] Last Admin: 10/04/22 06:02 Dose: 40 mg Pharmacy Consult (Consult Rx Perform Med Rec) 1 each MISCELLANE ONCE PRN PRN Reason: Consult order Sodium Chloride (0.9 % Sodium Chloride Flush 3 Ml Syringe) 3 ml IVFLUSH QSHIFT [facility] Last Admin: 10/04/22 01:50 Dose: 3 ml Home Medications Medication Instructions Recorded Confirmed Last Taken Type aspirin 81 mg chewable tablet 81 mg PO DAILY 11/14/20 10/01/22 10/01/22 History apixaban 5 mg tablet 2.5 mg PO BID 10/01/22 10/01/22 10/01/22 History levothyroxine 50 mcg tablet 50 mcg PO DAILY 10/01/22 10/01/22 10/01/22 History (Synthroid) phenylephrine HCl 0.5 % nasal spray 1 spray intranasal Q4-6H PRN 10/01/22 10/01/22 Unknown History Congestion simvastatin 80 mg tablet 40 mg PO DAILY 10/01/22 10/01/22 10/01/22 History Exam Exam Date and Time: October 04, 2022 0730 Height,Weight and Vital Signs: Height 6 ft 3 in Weight 94.7 kg Last Vital Signs Temp 97.7 F 10/04/22 06:41 Pulse 80 10/04/22 06:41 Resp 16 10/04/22 06:41 BP 125/72 10/04/22 06:41 Pulse Ox 97 10/04/22 06:41 O2 Del Method 10/04/22 06:41 O2 Flow Rate 4 10/04/22 03:11 Pertinent Lab Results Pertinent Lab Results: Laboratory Tests 10/01/22 10/01/22 10/01/22 10:14 10:14 10:14 WBC 13.6 H RBC 3.05 L D Hgb 7.8 L D Hct 25.8 L D MCV 84.6 MCH 25.6 L MCHC 30.2 L RDW 13.6 Plt Count 241 MPV 11.4 Immature Gran % (Auto) 0.3 Neut % (Auto) 89.0 H Lymph % (Auto) 3.5 L [place] % (Auto) 6.5 Eos % (Auto) 0.5 Baso % (Auto) 0.2 Lymph # (Auto) 0.5 L [place] # (Auto) 0.9 Eos # (Auto) 0.1 Baso # (Auto) 0.0 Abs Immat Gran (auto) 0.04 H Absolute Neuts (auto) 12.1 H Absolute Nucleated RBC 0.000 Nucleated RBC % (auto) 0.0 Absolute Retic Percent Retic Immature Retic Fraction Retic Hgb Equivalent Haptoglobin PT 14.2 H INR 1.2 H APTT 35.7 Sodium 141 Potassium 4.4 Chloride 104 Carbon Dioxide 23 Anion Gap 18 BUN 24 H D Creatinine 1.47 H Estim Creat Clear Calc 55.0 Estimated GFR 47 Random Glucose 128 H D Fasting Glucose Lactic Acid Lactic Acid F/U @ 2Hr Calcium 9.8 Magnesium 2.4 Iron 20 L TIBC 401 % Saturation 5 L Unsat Iron Binding 381 Ferritin 16 L Total Bilirubin 0.2 AST 13 ALT 10 Alkaline Phosphatase 34 L Lactate Dehydrogenase 183 Troponin I High Sens Total Protein 6.9 Albumin 4.1 Vitamin B12 Folate Urine Color Urine Appearance Urine pH Ur Specific [place] Urine Protein Urine Glucose (UA) Urine Ketones Urine Blood Urine Nitrite Ur Leukocyte Esterase COVID-19 (ROXY) COVID-19 Clin Com Blood Type Antibody Screen BHANU, Polyspecific Positive BHANU Work-up Crossmatch 10/01/22 10/01/22 10/01/22 10:14 10:14 10:16 WBC RBC Hgb Hct MCV MCH MCHC RDW Plt Count MPV Immature Gran % (Auto) Neut % (Auto) Lymph % (Auto) [place] % (Auto) Eos % (Auto) Baso % (Auto) Lymph # (Auto) [place] # (Auto) Eos # (Auto) Baso # (Auto) Abs Immat Gran (auto) Absolute Neuts (auto) Absolute Nucleated RBC Nucleated RBC % (auto) Absolute Retic Percent Retic Immature Retic Fraction Retic Hgb Equivalent Haptoglobin PT INR APTT Sodium Potassium Chloride Carbon Dioxide Anion Gap BUN Creatinine Estim Creat Clear Calc Estimated GFR Random Glucose Fasting Glucose Lactic Acid 3.4 H* Lactic Acid F/U @ 2Hr Calcium Magnesium Iron TIBC % Saturation Unsat Iron Binding Ferritin Total Bilirubin AST ALT Alkaline Phosphatase Lactate Dehydrogenase Troponin I High Sens 14.4 Total Protein Albumin Vitamin B12 Folate Urine Color Urine Appearance Urine pH Ur Specific [place] Urine Protein Urine Glucose (UA) Urine Ketones Urine Blood Urine Nitrite Ur Leukocyte Esterase COVID-19 (RXOY) COVID-19 [facility] Com Blood Type O Positive Antibody Screen NEGATIVE BHANU, Polyspecific NEGATIVE Positive BHANU Work-up TNP Crossmatch See Detail 10/01/22 10/01/22 10/01/22 12:55 12:55 12:55 WBC RBC Hgb Hct MCV MCH MCHC RDW Plt Count MPV Immature Gran % (Auto) Neut % (Auto) Lymph % (Auto) [place] % (Auto) Eos % (Auto) Baso % (Auto) Lymph # (Auto) [place] # (Auto) Eos # (Auto) Baso # (Auto) Abs Immat Gran (auto) Absolute Neuts (auto) Absolute Nucleated RBC Nucleated RBC % (auto) Absolute Retic 0.056 Percent Retic 1.9 H Immature Retic Fraction 24.2 H Retic Hgb Equivalent 22.0 L Haptoglobin 203 PT INR APTT Sodium Potassium Chloride Carbon Dioxide Anion Gap BUN Creatinine Estim Creat Clear Calc Estimated GFR Random Glucose Fasting Glucose Lactic Acid Lactic Acid F/U @ 2Hr Calcium Magnesium Iron TIBC % Saturation Unsat Iron Binding Ferritin Total Bilirubin AST ALT Alkaline Phosphatase Lactate Dehydrogenase Troponin I High Sens Total Protein Albumin Vitamin B12 268 Folate 9.1 Urine Color Urine Appearance Urine pH Ur Specific [place] Urine Protein Urine Glucose (UA) Urine Ketones Urine Blood Urine Nitrite Ur Leukocyte Esterase COVID-19 (ROXY) COVID-19 [facility] Blood Type Antibody Screen BHANU, Polyspecific Positive BHANU Work-up Crossmatch 10/01/22 10/01/22 10/01/22 16:29 16:29 18:01 WBC RBC Hgb Hct MCV MCH MCHC RDW Plt Count MPV Immature Gran % (Auto) Neut % (Auto) Lymph % (Auto) [place] % (Auto) Eos % (Auto) Baso % (Auto) Lymph # (Auto) [place] # (Auto) Eos # (Auto) Baso # (Auto) Abs Immat Gran (auto) Absolute Neuts (auto) Absolute Nucleated RBC Nucleated RBC % (auto) Absolute Retic Percent Retic Immature Retic Fraction Retic Hgb Equivalent Haptoglobin PT INR APTT Sodium Potassium Chloride Carbon Dioxide Anion Gap BUN Creatinine Estim Creat Clear Calc Estimated GFR Random Glucose Fasting Glucose Lactic Acid Lactic Acid F/U @ 2Hr 1.0 Calcium Magnesium Iron TIBC % Saturation Unsat Iron Binding Ferritin Total Bilirubin AST ALT Alkaline Phosphatase Lactate Dehydrogenase Troponin I High Sens Total Protein Albumin Vitamin B12 Folate Urine Color Yellow Urine Appearance Clear Urine pH 6.5 Ur Specific [place] 1.015 Urine Protein Trace Urine Glucose (UA) Negative Urine Ketones Negative Urine Blood Negative Urine Nitrite Negative Ur Leukocyte Esterase Negative COVID-19 (ROXY) Negative COVID-19 Clin Com See Note Blood Type Antibody Screen BHANU, Polyspecific Positive BHANU Work-up Crossmatch 10/02/22 10/02/22 10/03/22 07:51 07:51 05:44 WBC 7.7 6.6 RBC 2.99 L 2.94 L Hgb 7.6 L 7.6 L Hct 25.3 L 24.5 L MCV 84.6 83.3 MCH 25.4 L 25.9 L MCHC 30.0 L 31.0 RDW 14.0 14.2 Plt Count 202 199 MPV 11.1 11.8 Immature Gran % (Auto) Neut % (Auto) Lymph % (Auto) [place] % (Auto) Eos % (Auto) Baso % (Auto) Lymph # (Auto) [place] # (Auto) Eos # (Auto) Baso # (Auto) Abs Immat Gran (auto) Absolute Neuts (auto) Absolute Nucleated RBC 0.000 0.000 Nucleated RBC % (auto) 0.0 0.0 Absolute Retic Percent Retic Immature Retic Fraction Retic Hgb Equivalent Haptoglobin PT INR APTT Sodium 141 Potassium 4.5 Chloride 108 Carbon Dioxide 25 Anion Gap 13 BUN 21 H Creatinine 1.14 Estim Creat Clear Calc 71.0 Estimated GFR > 60 Random Glucose Fasting Glucose 100 H Lactic Acid Lactic Acid F/U @ 2Hr Calcium 9.0 D Magnesium 2.2 Iron TIBC % Saturation Unsat Iron Binding Ferritin Total Bilirubin AST ALT Alkaline Phosphatase Lactate Dehydrogenase Troponin I High Sens Total Protein Albumin Vitamin B12 Folate Urine Color Urine Appearance Urine pH Ur Specific [place] Urine Protein Urine Glucose (UA) Urine Ketones Urine Blood Urine Nitrite Ur Leukocyte Esterase COVID-19 (ROXY) COVID-19 Clin Com Blood Type Antibody Screen BHANU, Polyspecific Positive BHANU Work-up Crossmatch 10/03/22 10/04/22 05:44 06:10 WBC 8.3 RBC 3.73 L D Hgb 9.6 L D Hct 31.3 L D MCV 83.9 MCH 25.7 L MCHC 30.7 L RDW 14.6 Plt Count 237 MPV 11.6 Immature Gran % (Auto) Neut % (Auto) Lymph % (Auto) [place] % (Auto) Eos % (Auto) Baso % (Auto) Lymph # (Auto) [place] # (Auto) Eos # (Auto) Baso # (Auto) Abs Immat Gran (auto) Absolute Neuts (auto) Absolute Nucleated RBC 0.000 Nucleated RBC % (auto) 0.0 Absolute Retic Percent Retic Immature Retic Fraction Retic Hgb Equivalent Haptoglobin PT INR APTT Sodium 138 Potassium 4.4 Chloride 104 Carbon Dioxide 24 Anion Gap 14 BUN 20 H Creatinine 1.17 Estim Creat Clear Calc 69.2 Estimated GFR > 60 Random Glucose Fasting Glucose 101 H Lactic Acid Lactic Acid F/U @ 2Hr Calcium 8.9 Magnesium Iron TIBC % Saturation Unsat Iron Binding Ferritin Total Bilirubin AST ALT Alkaline Phosphatase Lactate Dehydrogenase Troponin I High Sens Total Protein Albumin Vitamin B12 Folate Urine Color Urine Appearance Urine pH Ur Specific [place] Urine Protein Urine Glucose (UA) Urine Ketones Urine Blood Urine Nitrite Ur Leukocyte Esterase COVID-19 (ROXY) COVID-19 Clin Com Blood Type Antibody Screen BHANU, Polyspecific Positive BHANU Work-up Crossmatch Assessment and Plan Final Anesthetic Review Family History of Problems with Anesthesia: No History of Problems with Anesthesia: No NPO: Yes ASA Class: IV Final Preanesthetic Review: No Changes in Pt Med Stat, Meds/Allgs Chart Revie wed, Consent Obtained/Reviewed and Anes Risks/Benef Reviewed Patient Risk: High Procedure Risk: Low Anesthetic Plan Anesthetic Plan: MAC: Disposition: Standard PACU
--- NOTE | 2022-10-04 08:43 | P.BOP_ITS ---
Brief Operative Note Date of Service: 10/04/22 Pre-op diagnosis: iron def anemia Post-op diagnosis: same Procedure: egd colonsocpy Surgeon: Leobardo Mix Anesthesia: MAC Was an Quality Control Coordinator used for this Procedure?: No Estimated blood loss (mL): 5 Pathology: other Condition: stable Disposition: PACU
--- NOTE | 2022-10-04 08:43 | PM.EVENT ---
Event Note Date of Service: 10/04/22 Event Note: EGD/Colonoscopy EGD shows a slight stricture at upper esophageal stricture, previously dilated 3 cm hiatal hernia bxs taken from antrum and egj small colon polyp in cecum removed with bx forceps. diverticulosis without diverticulitis. rec advance diet start iron supplementation f/u bx results. d/c when stable
[2022-10-04 09:00] VITALS: BP 101/58; PULSE 58; RESP 18; TEMP 36.5; O2SAT 99
--- NOTE | 2022-10-04 09:06 | OP_ITS ---
SURGEON: Leobardo Mix MD INDICATIONS: Iron-deficiency anemia. PREOPERATIVE DIAGNOSIS: POSTOPERATIVE DIAGNOSIS: PROCEDURE PERFORMED: 1. Upper endoscopy with biopsy. 2. Colonoscopy to the terminal ileum with biopsy. ESTIMATED BLOOD LOSS: COMPLICATIONS: ANESTHESIA: Monitored anesthesia care. ASSISTANTS: SPECIMENS: DESCRIPTION OF PROCEDURE: The procedure was performed on October 04, 2022. The History and Physical was performed and informed consent was obtained. The patient was placed in the left lateral decubitus position. The Olympus video gastroscope was introduced into the esophagus, stomach, and duodenum. Examination was performed. The scope was removed. He was repositioned for colonoscopy. A digital rectal exam was performed and was found to be normal. The Olympus pediatric video colonoscope was introduced into the rectum and advanced to the cecum without difficulty. The cecum was identified by transillumination, palpation, and identification of ileocecal valve. Examination was performed. The scope was removed. He tolerated both procedures well and was returned to recovery in stable condition. FINDINGS: Upper endoscopy: 1. Esophagus: The esophagus showed a slight stricturing just at the level of the upper esophageal sphincter. The scope passed through this with no difficulty. There was an irregular EG junction and a 3 cm hiatal hernia. Biopsies were obtained from the EG junction. 2. Stomach: The stomach showed no evidence of masses, ulcers, or polyps. Antral biopsies were obtained to rule out H pylori. 3. Duodenum: The bulb and second portion were normal. Colonoscopy: The terminal ileum was examined and appeared normal. The visualized colonic mucosa was within normal limits. There was some liquid and solid stool left, which limited the sensitivity examination for detection of small polyps. This was washed and suctioned. In the cecum was a less than 5 mm sessile polyp, which was removed using a biopsy forceps. No other polyps were identified. There was moderate sigmoid diverticulosis with scattered diverticula throughout the remainder of the colon. No mass lesion was identified. Retroflexed examination showed small internal hemorrhoids. IMPRESSION: 1. Hiatal hernia. 2. Esophageal stricture. 3. Colon polyp. RECOMMENDATIONS: 1. Follow up the biopsy results. 2. Advance diet. 3. Begin iron supplementation. MD ANKUR Marsh/DORETHA / [id number]
[2022-10-04 09:15] VITALS: BP 143/73; PULSE 64; RESP 20; TEMP 36.5; O2SAT 100
[2022-10-04 09:30] VITALS: BP 157/81; PULSE 64; RESP 20; TEMP 36.5; O2SAT 100
[2022-10-04] MEDS: Cyanocobalamin (Vitamin B-12) 1,000 MCG TABLET 1000 MCG PO (10:08)
[2022-10-04] MEDS: Atorvastatin Calcium 80 MG TABLET PO (10:08)
[2022-10-04 11:45] VITALS: BP 126/71; PULSE 92; RESP 18; TEMP 37.2; O2SAT 98
--- NOTE | 2022-10-04 12:45 | MHC.CM.PN ---
pt dcd home no skilled servceis ordered by
--- NOTE | 2022-10-04 12:46 | PM.DS ---
DS: Providers Provider Date of Service: 10/04/22 Date of admission: 10/01/22 16:48 Primary care physician: Carlo Lo MD Consults: 10/01/22 16:46 Consult to Gastroenterology Routine Consulting Provider: Leobardo Mix Reason for consultation: iron anemia on eliquis and asa 10/02/22 07:29 Consult to Neurology Routine Consulting Provider: [facility] Reason for consultation: RUE weakness DS: Diagnosis Discharge Diagnosis (1) Acute on chronic blood loss anemia: Status: Acute (2) Acute kidney injury: Status: Acute (3) Acute metabolic encephalopathy: Status: Acute (4) Iron deficiency anemia: Status: Acute DS: Summary Hospital Course Hospital Course: Admission note HPI 72M with PMH COPD, ? Chronic hypoxic respiratory failure on 4 L home O2, hypothyroidism, peripheral vascular disease, throat cancer status post radiation complicated by carotid stenosis status post endarterectomy, ? History of lung cancer status post right lobectomy? presented with confusion.? Patient is a vague historian.? He reports 2 weeks of feeling unwell, constipation, stomach upset, fatigue, denies black stools or hematemesis. ? notes that patient has been getting confused while in the shower.? He gets sleepy, slow to answer, she states she can usually get him out of it, however,? on day of admission patient sat down and shower chair and was slumped over and drooling, she noted right upper extremity weakness ( patient is left-handed),? patient was alert by the time he came to the ED. in ED noted to be hypotensive with systolic blood pressure in the 80s, anemia with hemoglobin o 7.8,? down from 14.6 in? February this year. Hospital course The patient was admitted to the hospital for evaluation of metabolic encephalopathy that was believed to be a result of hypotension at time of presentation. Found to be in acute kidney injury that was treated with IV fluid. Blood pressure improved and kidney function improved back to normal baseline from 1.47. Noted to have acute anemia which believed to be secondary to blood loss with evidence of iron deficiency. With hemoglobin of 7.8 at presentation improved to 9.6 after 2 units transfusion. Eliquis and aspirin were held and C was started on IV pantoprazole and evaluated by Gastroenterology who did upper and lower endoscopy with no evidence of acute bleeding, ulcers but found small polyp and hold reported stricture that did not need any dilatation at this point. To be discharged on pantoprazole daily for now. Patient reported right upper extremity transient weakness. CT scan was negative for any acute findings. MRI of the brain showed possible acute infarct located within the left occipital lobe. Doppler ultrasound was done for carotid showing significant stenosis bilaterally. Vascular surgery was consulted with a plan to do CT angiogram of the neck but the patient refused stating that he will follow up with his primary vascular team at [place]. To follow-up with vascular surgery team as soon as possible Start pantoprazole daily Follow-up with PCP for the result of H pylori testing Start iron supplement daily Time Spent with Patient Time attestation: Total time spent providing and/or coordinating discharge services: Discharge coordination time: Greater than 30 minutes Quality: Safe Use of Opioids Does Pt have an Active Cancer Diagnosis on the Problem List?: No Quality: Stroke Does the patient have a stroke diagnosis?: No Physical Exam Vital Signs: Vital Signs: Last Vital Signs Temp 98.9 F 10/04/22 11:45 Pulse 92 10/04/22 11:45 Resp 18 10/04/22 11:45 BP 126/71 10/04/22 11:45 Pulse Ox 98 10/04/22 11:45 O2 Del Method 10/04/22 11:45 O2 Flow Rate 4 10/04/22 11:45 BMI result Body Mass Index 26.1 Const: Other: Constitutional : Awake, interactive, not in distress Neck : Normal inspection, Supple Cardiovascular : RRR, no JVP, no lower extremity edema Respiratory : good bilateral air entry, no crackles, wheezes or rhonchi Gastrointestinal: soft, lax, Normal bowel sounds, Non tender Skin : Warm, Dry Neurological : Alert & oriented x3, No focal deficit , CN 2-12 within normal DS: Data Data Completed and Pending Pending studies at discharge: Pending at discharge 10/04/22 08:14 Surgical [PTH] Routine Labs on day of discharge: Laboratory Results - last 24 hr 10/04/22 06:10 WBC 8.3 RBC 3.73 L D Hgb 9.6 L D Hct 31.3 L D MCV 83.9 MCH 25.7 L MCHC 30.7 L RDW 14.6 Plt Count 237 MPV 11.6 Absolute Nucleated RBC 0.000 Nucleated RBC % (auto) 0.0 Preliminary micro results at discharge 10/01/22 10:16 Blood Culture - Preliminary Blood - Venous No growth after 48 hours. 10/01/22 10:13 Blood Culture - Preliminary Blood - Venous No growth after 48 hours. Imaging MRI - head: Radiologist's impression: ITS Impressions Chest X-Ray 10/01/22 09:45 IMPRESSION: Pulmonary and pleural findings consistent with chronic changes including COPD without significant interval change. Cervical Spine CT 10/01/22 10:22 IMPRESSION: Chronic changes noted. No fracture or destructive process. Fleischner guidelines were followed. Head CT 10/01/22 10:27 IMPRESSION: No acute intracranial pathology. Abdomen/Pelvis CT 10/01/22 14:29 IMPRESSION: 1. No acute intra-abdominal process seen. 2. Diffuse colonic diverticulosis without diverticulitis. Mild constipation. 3. 3. Left inguinal hernia containing a loop of sigmoid colon.. No inflammatory process within the hernia. Fleischner guidelines were followed. Brain MRI 10/01/22 19:20 IMPRESSION: - Artifactually degraded study with a possible punctate acute infarcts located within the left occipital lobe. There is a chronic lacunar infarct within the right thalamus and there are chronic lacunar infarcts within the right centrum semiovale. Moderate background chronic microangiopathy. - There is increased signal on FLAIR weighted imaging throughout the distal MCA, BRENDAN, and portions of the BUSINESS OFFICE ASSISTANT vasculature. This finding is typically seen in the setting of slow collateral flow and can be further assessed with a CTA of the head and neck to exclude any significant stenoses or vascular occlusions to explain these findings. Carotid Doppler Study 10/03/22 13:13 IMPRESSION: 1. RIGHT: There is a stent within the internal carotid artery. At the distal aspect of the internal carotid artery stent there is severe, hemodynamically significant stenosis of the proximal right internal carotid artery corresponding to an 80-99% stenosis by velocity criteria. 2. LEFT: Severe, hemodynamically significant stenosis of the proximal left internal carotid artery corresponding to an 80-99% stenosis by velocity criteria. Discharge Plan Discharge Anticipated Discharge Date/Time: 10/04/22 12:34 Patient Disposition: Home, Self-Care Discharge Diagnosis: Acute on chronic blood loss anemia Acute kidney injury Transient ischemic attack Referrals: Carlo Lo MD [Primary Care Provider] - 1 Week Discharge Medications: New pantoprazole 40 mg tablet,delayed release (DR/EC) 40 mg PO DAILY Qty: 30 0RF ferrous sulfate 324 mg (65 mg iron) tablet,delayed release (DR/EC) 324 mg PO DAILY Qty: 30 0RF Continued albuterol sulfate 90 mcg/actuation HFA aerosol inhaler 2 puff inhalation Q6H PRN (Reason: shortness of breath or wheezing) Qty: 8.5 0RF simvastatin 80 mg tablet 40 mg PO DAILY levothyroxine [Synthroid] 50 mcg tablet 50 mcg PO DAILY apixaban 5 mg tablet 2.5 mg PO BID phenylephrine HCl 0.5 % [place],Non-Aerosol 1 spray INTRANASAL Q4-6H PRN (Reason: Congestion) aspirin 81 mg tablet,chewable 81 mg PO DAILY Stiolto Respimat 2.5-2.5 mcg/actuation mist 2 puff inhalation DAILY 30 Days Qty: 4 5RF Discharge Orders: Discharge Order (Routine); Ordered 10/04/22 Ordered By: Liyah Hutchinson Diet: Advance to usual diet Activity on Discharge: As tolerated Stand Alone Forms: Patient Portal Discharge page Care Plan Goals: Read below Health Concerns: Read below Plan of Treatment: Read below Assessment: You were admitted to the hospital for evaluation of confusion, anemia and right upper extremity weakness. Found to have acute blood loss anemia with hemoglobin 7.8. Improved to 9.6 after 2 units transfusion. Had EGD and colonoscopy done by Dr. Mix from GI with no evidence of ulcers or active bleeding. Noted to have acute kidney injury that responded well to IV fluids and return back to baseline. CT scan of the head was negative for any acute stroke. Right upper extremity improved back to baseline. Evaluated by Neurology as Doppler ultrasound showed significant stenosis on both of your carotid arteries bilaterally. Recommended follow-up with your vascular surgeon as soon as possible to consider intervention within the next 1-2 weeks. To follow-up with your vascular surgery team as soon as possible Start pantoprazole daily Follow-up with PCP for the result of H pylori testing Start iron supplement daily
[2022-10-04] MEDS: Apixaban 2.5 MG TABLET PO (12:54)
== END 2022-10-04 13:40 | disposition home or self-care (01) | DRG 314 ==
LOC: HO.ED 16:27 → HO.EDOVER 16:52 → HO.IMC 18:02
PROVIDERS: Internal Medicine Gastroenterology; Physician Assistant Medical; Admitting Provider Internal Medicine; Emergency Provider Internal Medicine; PCP Internal Medicine; Visit Provider Student in an Organized Health Care Education/Training Program
PROC: 0DB48ZX Excision of Esophagogastric Junction, Via Natural or Artificial Opening Endoscopic, Diagnostic (ICD-10-PCS; principal; 2022-10-04 07:30)
DX: I95.9 Hypotension, unspecified (principal); G93.41 Metabolic encephalopathy; K57.31 Diverticulosis of large intestine without perforation or abscess with bleeding; J96.11 Chronic respiratory failure with hypoxia; N17.9 Acute kidney failure, unspecified; D62 Acute posthemorrhagic anemia; E03.9 Hypothyroidism, unspecified; Z20.822 Contact with and (suspected) exposure to COVID-19; Z99.81 Dependence on supplemental oxygen; I73.9 Peripheral vascular disease, unspecified; E53.8 Deficiency of other specified B group vitamins; K21.9 Gastro-esophageal reflux disease without esophagitis; K44.9 Diaphragmatic hernia without obstruction or gangrene; K63.5 Polyp of colon; K22.2 Esophageal obstruction; I65.23 Occlusion and stenosis of bilateral carotid arteries; J44.9 Chronic obstructive pulmonary disease, unspecified; Z85.118 Personal history of other malignant neoplasm of bronchus and lung; Z90.2 Acquired absence of lung [part of]; Z96.652 Presence of left artificial knee joint; Z92.3 Personal history of irradiation; Z98.62 Peripheral vascular angioplasty status; Z80.0 Family history of malignant neoplasm of digestive organs; Z86.73 Personal history of transient ischemic attack (TIA), and cerebral infarction without residual deficits; Z87.891 Personal history of nicotine dependence; Z88.1 Allergy status to other antibiotic agents; Z79.01 Long term (current) use of anticoagulants; Z79.82 Long term (current) use of aspirin; Z79.899 Other long term (current) drug therapy
CPT/HCPCS: 36415; 70450; 70551; 71046; 72125; 74176; 80048; 80053; 81003; 82607; 82728; 82746; 83010; 83540; 83605; 83615; 83735; 84484; 85025; 85027; 85045; 85610; 85730; 86850; 86880; 86900; 86901; 86923; 87040; 87635; 88305; 88342; 90686; 93005; 93880; 99285; J2370; P9016

== ENCOUNTER → 2022-10-22 10:12 | Outpatient (BNVA) | payer OTHER, SELFPAY | PROVIDERS: PCP Internal Medicine; Visit Provider Internal Medicine | DX: J44.9 Chronic obstructive pulmonary disease, unspecified (principal); J96.91 Respiratory failure, unspecified with hypoxia; Z99.81 Dependence on supplemental oxygen | CPT/HCPCS: 99212 ==

== ENCOUNTER 2022-12-19 13:08 | Outpatient (REF) | payer OTHER, SELFPAY | END 2022-12-19 13:09 | disposition home or self-care (01) | LOC: HO.HOSX 13:08 | PROVIDERS: Visit Provider Orthopaedic Surgery | DX: Z13.89 Encounter for screening for other disorder (principal) ==

== ENCOUNTER 2022-12-20 13:08 | Outpatient (REF) | payer OTHER, SELFPAY ==
--- NOTE | ~2022-12-20 | XR_ITS ---
EXAMINATION: XR KNEE, LEFT XR FEMUR, LEFT XR KNEE STANDING, BILATERAL CLINICAL INFORMATION: Pain unspecified knee. COMPARISON: Multiple prior radiographs most recent of the left knee and left femur April 2021. TECHNIQUE: Upright AP views of both knees. Lateral patellar views of the left knee. AP and lateral views of the left femur. FINDINGS: LEFT FEMUR: Postoperative change and persistent deformity of the distal femur related to prior orthopedic fixation of distal femur fracture. The overall appearance of the area the fracture/bone in the distal femur diametaphysis is unchanged with some persistent irregular lucency remaining along the medial cortex medial aspect of the femur. Hardware remains intact. LEFT KNEE: Left total knee arthroplasty noted with components in the usual and unchanged position. No periprosthetic lucency other than the persistent lucency in the distal femur related to the old fracture. RIGHT KNEE: The medial lateral compartments and surrounding bone are normal. Arterial calcification present. XR/XR knee standing BI IMPRESSION: LEFT FEMUR: Stable appearance of the distal femur related to prior orthopedic fixation of distal femur fracture. Lucency along the medial cortex medial aspect of the diametaphysis of the femur remains unchanged. LEFT KNEE: Left total knee arthroplasty without change. No change. RIGHT KNEE: Normal.
--- NOTE | ~2022-12-20 | XR_ITS ---
EXAMINATION: XR KNEE, LEFT XR FEMUR, LEFT XR KNEE STANDING, BILATERAL CLINICAL INFORMATION: Pain unspecified knee. COMPARISON: Multiple prior radiographs most recent of the left knee and left femur April 2021. TECHNIQUE: Upright AP views of both knees. Lateral patellar views of the left knee. AP and lateral views of the left femur. FINDINGS: LEFT FEMUR: Postoperative change and persistent deformity of the distal femur related to prior orthopedic fixation of distal femur fracture. The overall appearance of the area the fracture/bone in the distal femur diametaphysis is unchanged with some persistent irregular lucency remaining along the medial cortex medial aspect of the femur. Hardware remains intact. LEFT KNEE: Left total knee arthroplasty noted with components in the usual and unchanged position. No periprosthetic lucency other than the persistent lucency in the distal femur related to the old fracture. RIGHT KNEE: The medial lateral compartments and surrounding bone are normal. Arterial calcification present. XR/XR knee LT 2V IMPRESSION: LEFT FEMUR: Stable appearance of the distal femur related to prior orthopedic fixation of distal femur fracture. Lucency along the medial cortex medial aspect of the diametaphysis of the femur remains unchanged. LEFT KNEE: Left total knee arthroplasty without change. No change. RIGHT KNEE: Normal.
--- NOTE | ~2022-12-20 | XR_ITS ---
EXAMINATION: XR KNEE, LEFT XR FEMUR, LEFT XR KNEE STANDING, BILATERAL CLINICAL INFORMATION: Pain unspecified knee. COMPARISON: Multiple prior radiographs most recent of the left knee and left femur April 2021. TECHNIQUE: Upright AP views of both knees. Lateral patellar views of the left knee. AP and lateral views of the left femur. FINDINGS: LEFT FEMUR: Postoperative change and persistent deformity of the distal femur related to prior orthopedic fixation of distal femur fracture. The overall appearance of the area the fracture/bone in the distal femur diametaphysis is unchanged with some persistent irregular lucency remaining along the medial cortex medial aspect of the femur. Hardware remains intact. LEFT KNEE: Left total knee arthroplasty noted with components in the usual and unchanged position. No periprosthetic lucency other than the persistent lucency in the distal femur related to the old fracture. RIGHT KNEE: The medial lateral compartments and surrounding bone are normal. Arterial calcification present. XR/XR femur LT 2V IMPRESSION: LEFT FEMUR: Stable appearance of the distal femur related to prior orthopedic fixation of distal femur fracture. Lucency along the medial cortex medial aspect of the diametaphysis of the femur remains unchanged. LEFT KNEE: Left total knee arthroplasty without change. No change. RIGHT KNEE: Normal.
== END 2022-12-20 13:09 | disposition home or self-care (01) ==
LOC: HO.HOSX 13:08
PROVIDERS: Visit Provider Orthopaedic Surgery
DX: M97.8XXA Periprosthetic fracture around other internal prosthetic joint, initial encounter (principal); M25.562 Pain in left knee; X58.XXXA Exposure to other specified factors, initial encounter; Y93.9 Activity, unspecified; Y92.9 Unspecified place or not applicable; Y99.9 Unspecified external cause status; Z96.652 Presence of left artificial knee joint
CPT/HCPCS: 73552; 73560; 73565; 99212

== ENCOUNTER → 2023-04-23 08:55 | Outpatient (BNVA) | payer OTHER, SELFPAY | PROVIDERS: PCP Internal Medicine; Visit Provider Internal Medicine | DX: J44.9 Chronic obstructive pulmonary disease, unspecified (principal); J96.91 Respiratory failure, unspecified with hypoxia | CPT/HCPCS: 99212 ==

== ENCOUNTER → 2023-05-10 14:58 | Outpatient (BNVA) | payer OTHER, SELFPAY | PROVIDERS: PCP Internal Medicine; Visit Provider Nurse Practitioner Family | DX: J44.9 Chronic obstructive pulmonary disease, unspecified (principal) | CPT/HCPCS: 99212 ==

== ENCOUNTER 2023-09-19 13:08 | Outpatient (AMB) | payer OTHER, SELFPAY ==
--- NOTE | 2023-09-19 13:16 | A.OFFVIS_ITS ---
Intake Vital Signs 09/19/23 13:20 Height 6 ft 3 in Pulse 91 Pulse Source Pulse Oximeter Pulse Oximetry (%) 90 L Oxygen Delivery Method Nasal Cannula Oxygen Flow Rate 4 Intake Visit Reasons: productive cough Intake Note: pt is here for sick visit, he has been sick for about 3 weeks, coughing up a colored sputum, sleeping all the time, coughing and wheezing. PLEASE REFILL STIOLTO FOR A 3 MONTHS SUPPLY. Retail Account Representative Required: No Allergies moxifloxacin Allergy (Verified 09/19/23 13:43) Numbness Medication List - Last Reconciled 09/19/23 by Mane Sehr MD albuterol sulfate 90 mcg/actuation 2 puffs inhalation Q6H PRN apixaban 2.5 mg PO BID aspirin 81 mg PO DAILY cholecalciferol (vitamin D3) 25 mcg PO DAILY ferrous sulfate 324 mg PO DAILY levothyroxine (Synthroid) 50 mcg PO DAILY pantoprazole 40 mg PO DAILY simvastatin 40 mg PO DAILY tiotropium-olodaterol 2.5-2.5 mcg/actuation (Stiolto Respimat) 2 puffs inhalation DAILY 30 days Do you need a note to return to daycare/school/sports/work: No HPI productive cough HPI Details 73 years old very pleasant gentleman com es, for an urgent visit because of chest congestion and increased shortness of breath for the last 1 week. He is having frequent cough when bringing up some yellowish phlegm off and on. Denies fever chills or chest pain. He is known to have chronic obstructive pulmonary disease and is oxygen d ependent. Has had throat cancer treated with D working its procedure followed by chemoradiation. Also has had right upper lobectomy for lung cancer. He is prone to have frequent respiratory infections which make his condition worse. Overall he has been fairly stable with his current regimen of Stiolto 2 puffs every day, oxygen and also albuterol inhaler p.r.n. [facility] Medical History (Updated 09/19/23 @ 13:51 by Mane Sher MD) Bronchitis Respiratory failure with hypoxia Acute on chronic blood loss anemia Acute kidney injury Hypoxemia COPD (chronic obstructive pulmonary disease) Sepsis Decreased oral intake Lung cancer Throat cancer Claudication in peripheral vascular disease Chronic sinusitis Hypercholesterolemia Surgical History H/O carotid endarterectomy History of total left knee replacement H/O neck surgery History of carpal tunnel release S/P tonsillectomy History of knee surgery Family History Father No problems noted. Mother No problems noted. Social History Household Members: Spouse Housing: [facility] Do you presently have visiting nurse or other home services: No Alcohol intake: never Patient Tobacco Use Status: Former Tobacco user Tobacco use type: Cigarette Second Hand Smoke Exposure: No Advance Directives Date on File: 10/01/22 service: Yes Current occupational status: retired and disabled Current occupation: right handed Review of Systems Const All systems reviewed & are unremarkable except as noted in HPI and below Eyes Reports no additional complaints ENT Reports dysphagia (Only occasional, he tries to be careful.) Card Denies chest pain, Denies irregular heart rhythm and Denies leg edema Resp Reports as per HPI GI Reports no additional complaints and Reports dysphagia (Only occasional, he tries to be careful.) Reports no additional complaints Musc Reports no additional complaints Skin/Breast Reports system reviewed and no additional complaints, except as documented Neuro Reports no additional complaints Psych Reports no additional complaints Physical Exam Vital Signs: Last Vital Signs Pulse 91 09/19/23 13:20 Pulse Ox 90 L 09/19/23 13:20 Oxygen Delivery Method Nasal Cannula 09/19/23 13:20 Oxygen Flow Rate 4 09/19/23 13:20 Const General: comfortable, no acute distress, alert and awake Orientation/consciousness: patient oriented x3 HEENT Head: Yes normal to inspection General nose exam: No nasal polyps present and No nasal discharge present Face and sinus: Yes sinuses nontender Mouth: oropharynx normal Throat: Yes posterior oropharynx normal Eyes General: appearance normal, both eyes and all related structures Neck Neck: Yes normal visual inspection, Yes no lymphadenopathy, Yes trachea midline and Yes no JVD Thyroid: Thyroid normal Chest Chest palpation & inspection: normal inspection of the chest, normal palpation of entire chest wall and no tenderness Resp Other: Percussion note hyper-resonant, breath sounds are distant with prolonged expiratory phase. Has a few creps amd wheezes americo the upper parts of the chest .. No basilar crepitations are heard today. Cardio Palpation: normal PMI Rate: regular rate Rhythm: regular rhythm Heart sounds: no gallops and no murmurs GI Palpation (GI): Soft to palpation, nontender, No hepatosplenomegaly present and no masses Auscultation: normal bowel sounds Back/Spine/Pelvis Thoracic/Lumbar Spine: thoracic and lumbar spine normal to inspection Skin General skin exam: no rashes or lesions noted Neuro General: patient oriented x3 and no focal motor deficits Cranial nerves: Yes CN's II-XII intact bilaterally Extrem General: Yes normal to inspection, Yes no clubbing, cyanosis or edema and Yes no calf tenderness Psych Appearance: grossly normal and well kempt Speech and movement: Normal speech and movement present Assessment & Plan Assessment & Plan (1) COPD (chronic obstructive pulmonary disease): Comment: Chronic obstructive pulmonary disease, relatively stable, Currently decompensated due to, chest congestion in the upper parts and possible acute bronchitis. Patient is prone to have recurrent respiratory infections, partly due to micro aspirations. Code(s): J44.9 - Chronic obstructive pulmonary disease, unspecified (2) Respiratory failure with hypoxia: Comment: Patient does have history of nocturnal hypoxemia as well as exercise induced hypoxemia. He uses O2 2 L/minute 24 hours a day. Has a stationary concentrator at home and also has POC for outdoors. Code(s): J96.91 - Respiratory failure, unspecified with hypoxia (3) Bronchitis: Comment: Today he seems to have acute bronchitis in the upper parts of the chest, Increased chest congestion secondary to micro aspirations cannot be ruled out. TX : I will treat him with a course of doxycycline 100 b.i.d. for 10 days, He may need to be treated every few months if he gets acute exacerbation. Code(s): J40 - Bronchitis, not specified as acute or chronic Medications: New doxycycline hyclate 100 mg PO BID 20 tabs 1RF BRONCHITIS 10 days Changed From tiotropium-olodaterol 2.5-2.5 mcg/actuation (Stiolto Respimat) 2 puffs inhalation DAILY 30 days 4 grams 5RF copd To tiotropium-olodaterol 2.5-2.5 mcg/actuation (Stiolto Respimat) 2 puffs inhalation DAILY 90 days 4 grams 3RF COPD Coding Level of Care Code Est Pt Level 3 (46949) Diagnoses COPD (chronic obstructive pulmonary disease) J44.9 Respiratory failure with hypoxia J96.91 Bronchitis J40
[2023-09-19 13:20] VITALS: PULSE 91; O2SAT 90
== END 2023-09-19 13:43 | disposition home or self-care (01) ==
PROVIDERS: PCP Internal Medicine; Visit Provider Internal Medicine
DX: J44.9 Chronic obstructive pulmonary disease, unspecified (principal); J96.91 Respiratory failure, unspecified with hypoxia; J40 Bronchitis, not specified as acute or chronic
CPT/HCPCS: 99213

== ENCOUNTER → 2023-09-19 13:08 | Outpatient (BNVA) | payer OTHER, SELFPAY | PROVIDERS: PCP Internal Medicine; Visit Provider Internal Medicine | DX: J44.9 Chronic obstructive pulmonary disease, unspecified (principal); J40 Bronchitis, not specified as acute or chronic; J96.91 Respiratory failure, unspecified with hypoxia | CPT/HCPCS: 99212 ==

== ENCOUNTER 2024-01-11 09:39 | Inpatient (IN) | payer OTHER, SELFPAY ==
[2024-01-11] VITALS (32 sets, daily range): BP systolic 66–171; BP diastolic 23–116; PULSE 80–138; RESP 18–33; TEMP 36.3–37.4; O2SAT 91–114; BMI 24.5
--- NOTE | 2024-01-11 | ECG_ITS ---
Test Reason : WEAKNESS Blood Pressure : / mmHG Vent. Rate : 089 BPM Atrial Rate : 089 BPM P-R Int : 206 ms QRS Dur : 096 ms QT Int : 352 ms P-R-T Axes : 049 049 067 degrees QTc Int : 428 ms Normal sinus rhythm Nonspecific ST abnormality Abnormal ECG When compared with ECG of 01-OCT-2022 10:52, Minimal criteria for Anterior infarct are no longer Present ST now depressed in Anterolateral leads Referred By: Marlen Martinez Electronically Signed By:ROLAN JONES MD
--- NOTE | ~2024-01-11 | XR_ITS ---
EXAMINATION: XR CHEST CLINICAL INFORMATION: Status-post central line placement. COMPARISON: Prior chest radiographs, most recently 01/11/2024. TECHNIQUE: Frontal view of the chest was obtained. The bases are partially excluded from the [id number]. FINDINGS: The heart, great vessels, pulmonary vasculature and mediastinum are stable. There is atherosclerotic calcification of the aortic knob. There is a persistent bilateral interstitial and alveolar pattern, consistent with congestive heart failure. There is persistent right apical pleural thickening. No pneumothorax is seen. There is no definite effusion noted. No acute osseous abnormality is seen. A left internal jugular central venous catheter is seen, with tip positioned at the cavoatrial junction. Lower cervical orthopedic hardware is noted. XR/XR chest 1V IMPRESSION: 1. Findings are consistent with pulmonary edema, stable from prior radiographs of the same date. 2. A left internal jugular central venous catheter is seen, positioned as detailed. There is no pneumothorax.
--- NOTE | ~2024-01-11 | XR_ITS ---
EXAMINATION: XR CHEST CLINICAL INFORMATION: Bradycardia COMPARISON: Chest radiograph from earlier same day TECHNIQUE: Frontal view of the chest was obtained. FINDINGS: Low lung volumes with new patchy bilateral airspace opacities, most pronounced in the peripheral left lower lung. Unchanged chronic right apical pleural thickening and scattered coarse reticular opacities suggestive of chronic lung disease. No significant pleural effusion or pneumothorax. Cardiomediastinal silhouette is unchanged. XR/XR chest 1V IMPRESSION: Compared to earlier same day, redemonstrated low lung volumes with new patchy bilateral airspace opacities, which given the rapid development is favored to reflect alveolar pulmonary edema, though multifocal infection or acute lung injury could appear similar.
--- NOTE | ~2024-01-11 | XR_ITS ---
EXAMINATION: XR SHOULDER, LEFT CLINICAL INFORMATION: Pain COMPARISON: None available. TECHNIQUE: Two views of the left shoulder. FINDINGS: The bones and soft tissues are normal. No fracture. Glenohumeral and acromioclavicular alignment is anatomic with normal joint space. No abnormal soft tissue calcifications. XR/XR shoulder LT min 2V IMPRESSION: Normal left shoulder.
--- NOTE | ~2024-01-11 | US_ITS ---
EXAMINATION: US VENOUS ULTRASOUND WITH DOPPLER LOWER EXTREMITY, RIGHT CLINICAL INFORMATION: Pain and shortness of breath evaluate for DVT COMPARISON: None available. TECHNIQUE: Ultrasound of the deep veins is performed from the hip to the calf with compression sonography and color and pulse Doppler assessment. Spectral analysis with color-flow imaging is performed. FINDINGS: There is normal venous compression and respiratory variation and augmented flow. The visualized common femoral vein, superficial femoral vein, profunda femoral vein, popliteal vein, and the trifurcation region shows no evidence of deep venous thrombosis. There is no significant popliteal fossa cyst. Contralateral common femoral vein is patent. If the patient's symptoms persist, followup ultrasound in 5 days 7 days might be of value to exclude proximal propagation from a non-visualized calf vein. US/US venous duplex LE RT IMPRESSION: No DVT demonstrated in the right lower extremity.
--- NOTE | ~2024-01-11 | XR_ITS ---
EXAMINATION: XR CHEST CLINICAL INFORMATION: Shortness of breath COMPARISON: Previous chest x-ray September 2022 TECHNIQUE: Frontal view of the chest was obtained. FINDINGS: The cardiac and mediastinal contours are stable. There is right apical pleural thickening that is stable. Lungs are otherwise clear. No pleural effusion or pneumothorax. Postsurgical changes to the cervical spine. XR/XR chest 1V IMPRESSION: No evidence for acute disease in the chest.
--- NOTE | 2024-01-11 10:05 | PC.NURSE ---
Patient reports difficulty breathing and being unable to ambulate more than 10 feet without extreme pain for about 1 week. Reports chronic hypotension
--- NOTE | 2024-01-11 10:17 | ED_ITS ---
HPI - General Adult General Chief complaint: General Medical Stated complaint: PAIN ALL OVER PER EMS Time Seen by Provider: 01/11/24 10:08 Source: patient and EMS Mode of arrival: EMS Limitations: no limitations History of Present Illness HPI narrative: 72-year-old male with pertinent history of COPD, chronic hypoxic respiratory failure on 4 L home O2, hypothyroidism, peripheral vascular disease, throat cancer s/p radiation complicated by carotid stenosis S/P endarterectomy, patient presented of increased shortness of breath mostly with exertion and walking at home. Patient use his oxygen 10/06. Patient stated that his blood pressure is always on the low side patient has no symptoms when the blood pressure is low. Related Data Home Medications Medication Instructions Recorded Confirmed aspirin 81 mg chewable tablet 81 mg PO DAILY 11/14/20 05/10/23 apixaban 5 mg tablet 2.5 mg PO BID 10/01/22 05/10/23 levothyroxine 50 mcg tablet 50 mcg PO DAILY 10/01/22 05/10/23 (Synthroid) simvastatin 80 mg tablet 40 mg PO DAILY 10/01/22 05/10/23 cholecalciferol (vitamin D3) 25 25 mcg PO DAILY 04/23/23 05/10/23 mcg (1,000 unit) capsule Previous Rx's Medication Instructions Recorded ferrous sulfate 324 mg (65 mg 324 mg PO DAILY #30 tabs 10/04/22 iron) tablet,delayed release pantoprazole 40 mg tablet,delayed 40 mg PO DAILY #30 tabs 10/04/22 release albuterol sulfate 90 mcg/actuation 2 puff inhalation Q6H PRN 05/22/23 aerosol inhaler shortness of breath or wheezing #1 ea tiotropium 2.5 mcg-olodaterol 2.5 2 puff inhalation DAILY COPD 90 09/19/23 mcg/actuation mist for inhalation days #4 grams (Stiolto Respimat) doxycycline hyclate 100 mg tablet 100 mg PO BID BRONCHITIS 10 days 12/18/23 #20 tabs Allergies Allergy/AdvReac Type Severity Reaction Status Date / Time moxifloxacin Allergy Numbness Verified 09/19/23 13:43 Review of Systems 2 Review of Systems: All other systems are reviewed and are negative Constitutional: Reports as per HPI and Reports no additional constitutional complaints Eyes: Reports as per HPI and Reports no additional eye complaints Reports system reviewed and no additional complaints, except as documented Cardiovascular: Reports as per HPI and Reports no additional cardiovascular complaints Respiratory: Reports as per HPI and Reports no additional respiratory complaints Gastrointestinal: Reports as per HPI and Reports no additional gastrointestinal complaints Genitourinary: Reports no additional female genitourinary complaints Musculoskeletal: Reports no additional musculoskeletal complaints Skin/Breast: Reports system reviewed and no additional complaints, except as docu Psychiatric: Reports no additional psychiatric complaints Endocrine: Reports no additional endocrine complaints Hematologic/Lymphatic: Reports no additional hematologic/lymphatic complaints Allergic/Immunologic: Reports no additional allergic/immunologic complaints Reports system reviewed and no additional complaints, except as documented and Reports Abnormal speech present [facility] Past Medical History Medical History Bronchitis Respiratory failure with hypoxia Acute on chronic blood loss anemia Acute kidney injury Hypoxemia COPD (chronic obstructive pulmonary disease) Sepsis Decreased oral intake Lung cancer Throat cancer Claudication in peripheral vascular disease Chronic sinusitis Hypercholesterolemia Surgical History H/O carotid endarterectomy History of total left knee replacement H/O neck surgery History of carpal tunnel release S/P tonsillectomy History of knee surgery Family History Family History Father No problems noted. Mother No problems noted. Social History Social History Household Members: Spouse [facility] Do you presently have visiting nurse or other home services: No Alcohol intake: never Patient Tobacco Use Status: Former Tobacco user Tobacco use type: Cigarette Second Hand Smoke Exposure: No Advance Directives: Yes Advance Directives on File: Yes Advance Directives Date on File: 10/01/22 service: Yes Current occupational status: retired and disabled Current occupation: right handed Physical Exam ED Vital Signs: Vital Signs - 24 hr 01/11/24 09:58 01/11/24 10:42 01/11/24 10:48 Temperature 98.6 F Pulse Rate 92 80 86 Respiratory Rate 20 27 H 18 Blood Pressure 83/29 L Pulse Oximetry 100 Oxygen Delivery Method Nasal Cannula Oxygen Flow Rate 4 01/11/24 12:00 01/11/24 12:58 01/11/24 13:16 Temperature 98.4 F 98.4 F 98.8 F Pulse Rate 87 86 86 Respiratory Rate 18 20 18 Blood Pressure 78/47 L 78/47 L 72/42 L Pulse Oximetry 98 Oxygen Delivery Method Nasal Cannula Oxygen Flow Rate 4 01/11/24 15:15 01/11/24 15:58 01/11/24 16:35 Temperature Pulse Rate 128 H 123 H 120 H Respiratory Rate 22 H 18 Blood Pressure 106/85 118/70 81/24 L Pulse Oximetry 97 100 99 Oxygen Delivery Method BiPAP BiPAP CPAP Oxygen Flow Rate 01/11/24 16:55 Temperature Pulse Rate Respiratory Rate Blood Pressure 94/55 L Pulse Oximetry Oxygen Delivery Method Oxygen Flow Rate BMI result Body Mass Index 24.5 Vital signs have been reviewed and appear to be correct. Blood pressure elevated. Heart rate normal. Respiratory rate normal. Temperature normal. Oxygen saturation normal. Appearance: Alert. Oriented X3. No acute distress. Head: Normal external exam. Normocephalic. Atraumatic. No Malik signs noted. No raccoon eyes noted Eyes: PERRLA. EOMI. Conjunctiva and sclera normal. Eyelids normal. ENT: TM's Normal. Pharynx normal. Uvula midline. Moist mucous membranes. No trismus noted. No drooling noted. No muffled voice noted. Neck: Normal inspection. Neck supple. FROM. No adenopathy. Thyroid Normal. No meningeal signs. No neck mass noted. CVS: Normal heart rate and rhythm. Heart sound normal. No murmurs noted. Pulses normal throughout. Respiratory: No respiratory distress. Painless inspiration. Breath sounds normal. No wheezes/rales/rhonchi noted. Chest nontender. No accessory muscle usage noted or decreased air movement noted. Abdomen: Soft and nontender. Bowel sounds normal in all 4 quadrants. No distention noted. No organomegaly noted. No visible injury noted. Rectal exam: Brown stool with trace of blood guaiac-positive bread Back: No CVA tenderness. Full range of motion noted. Skin: Skin warm and dry. Normal skin color. Normal skin turgor. No rashes/lesions/lacerations noted. Extremities: No lower extremity edema. Extremities exhibit normal range of motion. Extremities nontender. Neuro: Oriented X 3. Cranial nerve exam: II-XII are grossly intact No motor deficit. No sensory deficit. Reflexes normal. Course Reevaluation(s) Reevaluation #1: Patient had complicated course while in the ED, patient was receiving the 1st unit of blood when he suddenly started to have difficulty breathing, diaphoretic, hypotensive exam and chest x-ray is consistent with acute flash pulmonary edema with hypotension, blood transfusion was stopped, patient was received a dose of Lasix and nitro, patient was placed on BiPAP and was closely monitored, patient finally started to respond again, will resume gentle blood transfusion. Son/ at the bedside patient is DNI but resuscitate. Start patient on Zosyn empirically, The case discussed with Dr. Vaughn Time: 17:18 Reevaluation #2: Blood pressure has improved, patient clinically breathing more comfortably, BiPAP was replaced by CPAP and patient is tolerating okay. Blood transfusion was resumed, no active blood loss was demonstrated on my exam however patient is guaiac-positive with no melena or hematochezia or BRBPR. Continue with current plan of resuscitation and ICU admission. Time: 17:18 Medications Administered Discontinued Medications Generic Name Dose Route Start Last Admin Trade Name Freq PRN Reason Stop Dose Admin Albuterol Sulfate 2.5 mg/ 0 mg 01/11/24 10:36 01/11/24 10:42 Albuterol/Ipratropium 3 ml INHALE 01/11/24 10:37 1 dose ONCE ONE Administration Furosemide 40 mg 01/11/24 14:59 01/11/24 15:08 Furosemide 40 Mg/4 Ml Vial IVPUSH 01/11/24 15:00 40 mg STAT STA Administration Protocol Sodium Chloride 100 mls @ 100 mls/hr 01/11/24 11:27 01/11/24 13:06 Ns IV 01/11/24 12:26 100 mls/hr ONCE ONE Administration Methylprednisolone Sodium Succinate 125 mg 01/11/24 10:24 01/11/24 10:38 Methylprednisolone Sod Succ 125 Mg/2 Ml Vial IVPUSH 01/11/24 10:25 125 mg ONCE ONE Administration Nitroglycerin 0.5 inch 01/11/24 15:00 01/11/24 15:15 Nitroglycerin 2 % Oint 1 Gm Packet TRANSDERMA 01/11/24 15:01 0.5 inch ONCE ONE Administration Oxycodone HCl 5 mg 01/11/24 14:25 01/11/24 14:34 Oxycodone Hcl Immed Release 5 Mg Tablet PO 01/11/24 14:26 5 mg ONCE ONE Administration Medical Decision Making Differential Diagnosis Differential Diagnoses: The differential diagnosis associated with the presentation includes (GI bleed, hypovolemic shock, congestive heart failure, ACS, severe anemia, electrolyte derangement.) Admission/Observation Consideration of admission/observation: Escalation of care including admission/observation considered Consult Healthcare Provider Management of the patient was discussed with: [employer] (Dr. Vaughn.) Lab Data MDM Lab Attestation statement: I reviewed the patient's lab results. 01/11/24 16:08 01/11/24 16:08 Labs: Lab Results 01/11/24 01/11/24 01/11/24 Range/Units 10:41 11:05 11:49 WBC 8.3 (4.8-10.8) X10*3/uL RBC 2.23 L D (4.60-5.80) X10*6/uL Hgb 4.5 L* D (14.0-18.0) g/dl Hct 17.1 L* D (42.0-52.0) % MCV 76.7 L (80.0-98.0) fL MCH 20.2 L (27.0-33.0) pg MCHC 26.3 L (31.0-36.0) g/dl RDW 16.6 H (11.0-16.0) % Plt Count 251 (160-400) X10*3/uL MPV 11.5 (9.4-12.4) fL Immature Gran % (Auto) 0.2 (0.0-0.4) % Neut % (Auto) 86.9 H (45-73) % Lymph % (Auto) 5.9 L (20-40) % Wright % (Auto) 6.7 (2-11) % Eos % (Auto) 0.1 (0-4) % Baso % (Auto) 0.2 (0-2) % Lymph # (Auto) 0.5 L (1.2-4.9) X10*3/uL Wright # (Auto) 0.6 (0.1-1.2) X10*3/uL Eos # (Auto) 0.0 (0.0-0.4) X10*3/uL Baso # (Auto) 0.0 (0.0-0.2) X10*3/uL Abs Immat Gran (auto) 0.02 (0.00-0.03) X10*3/uL Absolute Neuts (auto) 7.2 (2.0-8.3) x10*3/uL Absolute Nucleated RBC 0.000 (0.0-0.012) X10*3/uL Nucleated RBC % (auto) 0.0 (0.0-0.2) /100WBC D-Dimer High Sensitivty 187 NG/ML ABG pH at Pt Temp (7.35-7.45) ABG pCO2 at Pt Temp (32-45) mmHg ABG pO2 at Pt Temp (83-108) mmHg ABG HCO3 (22-26) mmol/L ABG Base Excess (Actual) mmol/L VBG pH (7.32-7.43) VBG pCO2 mmHg VBG pO2 mmHg VBG HCO3 (22-26) mmol/L VBG O2 Saturation % VBG Base Excess mmol/L Sodium 141 (135-145) mmol/L Potassium 4.8 (3.3-5.1) mmol/L Chloride 107 (96-108) mmol/L Carbon Dioxide 22 (22-29) mmol/L Anion Gap 17 (12-20) BUN 22 H (9-16) mg/dL Creatinine 1.52 H (0.5-1.4) mg/dL Estim Creat Clear Calc 52.5 Estimated GFR 45 POC Glucose (60-115) mg/dL Random Glucose 125 H (60-115) mg/dL Calcium 10.4 H D (8.4-10.2) mg/dL Total Bilirubin 0.3 (0.0-1.0) mg/dL Direct Bilirubin 0.1 (0.0-0.5) mg/dL AST 13 (5-37) U/L ALT < 5 (0-40) U/L Alkaline Phosphatase 27 L (39-117) U/L Troponin I High Sens 767.6 H* (<3.5-35.0) ng/L B-Natriuretic Peptide 674 H (<100) pg/mL Total Protein 6.6 (6.5-8.0) g/dL Albumin 3.5 (3.5-5.0) g/dL Lipase 6 L (8-78) U/L Urine Color Urine Appearance Urine pH (5.0-9.0) Ur Specific [place] (1.005-1.025) Urine Protein (Neg-Trace) mg/dL Urine Glucose (UA) (Negative) mg/dL Urine Ketones (Negative) mg/dL Urine Blood (Negative) Urine Nitrite (Negative) Ur Leukocyte Esterase (Negative) Stool Occult Blood POSITIVE (NEGATIVE) Influenza Type A (PCR) NEGATIVE (Negative) Influenza Type B (PCR) NEGATIVE (Negative) RSV RNA Qual (PCR) NEGATIVE (Negative) SARS-CoV-2 RNA (RT-PCR) NEGATIVE (Negative) Blood Type O Positive Antibody Screen NEGATIVE Crossmatch See Detail 01/11/24 01/11/24 01/11/24 Range/Units 13:57 14:58 15:06 WBC (4.8-10.8) X10*3/uL RBC (4.60-5.80) X10*6/uL Hgb (14.0-18.0) g/dl Hct (42.0-52.0) % MCV (80.0-98.0) fL MCH (27.0-33.0) pg MCHC (31.0-36.0) g/dl RDW (11.0-16.0) % Plt Count (160-400) X10*3/uL MPV (9.4-12.4) fL Immature Gran % (Auto) (0.0-0.4) % Neut % (Auto) (45-73) % Lymph % (Auto) (20-40) % Wright % (Auto) (2-11) % Eos % (Auto) (0-4) % Baso % (Auto) (0-2) % Lymph # (Auto) (1.2-4.9) X10*3/uL Wright # (Auto) (0.1-1.2) X10*3/uL Eos # (Auto) (0.0-0.4) X10*3/uL Baso # (Auto) (0.0-0.2) X10*3/uL Abs Immat Gran (auto) (0.00-0.03) X10*3/uL Absolute Neuts (auto) (2.0-8.3) x10*3/uL Absolute Nucleated RBC (0.0-0.012) X10*3/uL Nucleated RBC % (auto) (0.0-0.2) /100WBC D-Dimer High Sensitivty NG/ML ABG pH at Pt Temp 6.88 L* (7.35-7.45) ABG pCO2 at Pt Temp 49 H (32-45) mmHg ABG pO2 at Pt Temp 78 L (83-108) mmHg ABG HCO3 9 L (22-26) mmol/L ABG Base Excess (Actual) -22.3 mmol/L VBG pH (7.32-7.43) VBG pCO2 mmHg VBG pO2 mmHg VBG HCO3 (22-26) mmol/L VBG O2 Saturation % VBG Base Excess mmol/L Sodium (135-145) mmol/L Potassium (3.3-5.1) mmol/L Chloride (96-108) mmol/L Carbon Dioxide (22-29) mmol/L Anion Gap (12-20) BUN (9-16) mg/dL Creatinine (0.5-1.4) mg/dL Estim Creat Clear Calc Estimated GFR POC Glucose 254 H (60-115) mg/dL Random Glucose (60-115) mg/dL Calcium (8.4-10.2) mg/dL Total Bilirubin (0.0-1.0) mg/dL Direct Bilirubin (0.0-0.5) mg/dL AST (5-37) U/L ALT (0-40) U/L Alkaline Phosphatase (39-117) U/L Troponin I High Sens 867.9 H* (<3.5-35.0) ng/L B-Natriuretic Peptide (<100) pg/mL Total Protein (6.5-8.0) g/dL Albumin (3.5-5.0) g/dL Lipase (8-78) U/L Urine Color Urine Appearance Urine pH (5.0-9.0) Ur Specific [place] (1.005-1.025) Urine Protein (Neg-Trace) mg/dL Urine Glucose (UA) (Negative) mg/dL Urine Ketones (Negative) mg/dL Urine Blood (Negative) Urine Nitrite (Negative) Ur Leukocyte Esterase (Negative) Stool Occult Blood (NEGATIVE) Influenza Type A (PCR) (Negative) Influenza Type B (PCR) (Negative) RSV RNA Qual (PCR) (Negative) SARS-CoV-2 RNA (RT-PCR) (Negative) Blood Type Antibody Screen Crossmatch 01/11/24 01/11/24 01/11/24 Range/Units 15:42 15:54 16:08 WBC 13.6 H (4.8-10.8) X10*3/uL RBC 2.50 L (4.60-5.80) X10*6/uL Hgb 5.4 L* (14.0-18.0) g/dl Hct 21.0 L* D (42.0-52.0) % MCV 84.0 D (80.0-98.0) fL MCH 21.6 L (27.0-33.0) pg MCHC 25.7 L (31.0-36.0) g/dl RDW 17.4 H (11.0-16.0) % Plt Count 312 (160-400) X10*3/uL MPV 12.3 (9.4-12.4) fL Immature Gran % (Auto) 1.4 H (0.0-0.4) % Neut % (Auto) 86.6 H (45-73) % Lymph % (Auto) 10.3 L (20-40) % Wright % (Auto) 1.2 L (2-11) % Eos % (Auto) 0.1 (0-4) % Baso % (Auto) 0.4 (0-2) % Lymph # (Auto) 1.4 (1.2-4.9) X10*3/uL Wright # (Auto) 0.2 (0.1-1.2) X10*3/uL Eos # (Auto) 0.0 (0.0-0.4) X10*3/uL Baso # (Auto) 0.1 (0.0-0.2) X10*3/uL Abs Immat Gran (auto) 0.19 H (0.00-0.03) X10*3/uL Absolute Neuts (auto) 11.8 H (2.0-8.3) x10*3/uL Absolute Nucleated RBC 0.110 H (0.0-0.012) X10*3/uL Nucleated RBC % (auto) 0.8 H (0.0-0.2) /100WBC D-Dimer High Sensitivty NG/ML ABG pH at Pt Temp (7.35-7.45) ABG pCO2 at Pt Temp (32-45) mmHg ABG pO2 at Pt Temp (83-108) mmHg ABG HCO3 (22-26) mmol/L ABG Base Excess (Actual) mmol/L VBG pH 6.87 L* (7.32-7.43) VBG pCO2 55 mmHg VBG pO2 29 mmHg VBG HCO3 10 L (22-26) mmol/L VBG O2 Saturation < 30.0 % VBG Base Excess -21.6 mmol/L Sodium 141 (135-145) mmol/L Potassium 5.0 (3.3-5.1) mmol/L Chloride 106 (96-108) mmol/L Carbon Dioxide 10 L* D (22-29) mmol/L Anion Gap 30 H (12-20) BUN 23 H (9-16) mg/dL Creatinine 1.88 H (0.5-1.4) mg/dL Estim Creat Clear Calc 42.4 Estimated GFR 35 POC Glucose (60-115) mg/dL Random Glucose 343 H (60-115) mg/dL Calcium 10.8 H (8.4-10.2) mg/dL Total Bilirubin (0.0-1.0) mg/dL Direct Bilirubin (0.0-0.5) mg/dL AST (5-37) U/L ALT (0-40) U/L Alkaline Phosphatase (39-117) U/L Troponin I High Sens (<3.5-35.0) ng/L B-Natriuretic Peptide (<100) pg/mL Total Protein (6.5-8.0) g/dL Albumin (3.5-5.0) g/dL Lipase (8-78) U/L Urine Color Yellow Urine Appearance Clear Urine pH 5.0 (5.0-9.0) Ur Specific [place] 1.025 (1.005-1.025) Urine Protein Negative (Neg-Trace) mg/dL Urine Glucose (UA) Negative (Negative) mg/dL Urine Ketones Trace (Negative) mg/dL Urine Blood Negative (Negative) Urine Nitrite Negative (Negative) Ur Leukocyte Esterase Negative (Negative) Stool Occult Blood (NEGATIVE) Influenza Type A (PCR) (Negative) Influenza Type B (PCR) (Negative) RSV RNA Qual (PCR) (Negative) SARS-CoV-2 RNA (RT-PCR) (Negative) Blood Type Antibody Screen Crossmatch Independent Interpretation I performed an independent interpretation of an: Plain X-Ray (chest: pulmonary Edema) Radiology Impression Discussion of test interpretation with radiology: I discussed test interpretation with the radiologist Critical Care Time Critical Care Time Critical Care Time: Yes Total Critical Care Time: 60 Attestation: I spent 60 minutes providing critical care service to the patient, this including time spent at the bedside to evaluate the patient, reassess the patient, monitoring vital signs, review labs, and radiographic studies, counseling the patient/family, discussing the case with consultants, disposition the patient. Discharge Plan Discharge Clinical Impression: Anemia, Congestive heart failure, Acidosis Patient Disposition: Admitted As Inpatient Prescriptions: No Action albuterol sulfate 90 mcg/actuation HFA aerosol inhaler 2 puff inhalation Q6H PRN (Reason: shortness of breath or wheezing) Qty: 1 0RF doxycycline hyclate 100 mg tablet 100 mg PO BID 10 Days Qty: 20 1RF simvastatin 80 mg tablet 40 mg PO DAILY levothyroxine [Synthroid] 50 mcg tablet 50 mcg PO DAILY apixaban 5 mg tablet 2.5 mg PO BID pantoprazole 40 mg tablet,delayed release (DR/EC) 40 mg PO DAILY Qty: 30 0RF ferrous sulfate 324 mg (65 mg iron) tablet,delayed release (DR/EC) 324 mg PO DAILY Qty: 30 0RF aspirin 81 mg tablet,chewable 81 mg PO DAILY cholecalciferol (vitamin D3) 25 mcg (1,000 unit) capsule 25 mcg PO DAILY Stiolto Respimat 2.5-2.5 mcg/actuation mist 2 puff inhalation DAILY 90 Days Qty: 4 3RF
[2024-01-11] MEDS: methylPREDNISolone Sod Succ 125 MG/2 ML VIAL IVPUSH (10:38)
[2024-01-11] MEDS: Albuterol Sulfate 2.5 MG, Albuterol/Iprat 2.5/0.5MG 3 ML 3 ML INHALE (10:42)
[2024-01-11 11:10] LABS: MANUAL DIFF FLAG NO
[2024-01-11 11:14] LABS: Basophils Percent Auto 0.2 % (0-2); Eosinophils Percent Auto 0.1 % (0-4); Imm Gran Abs Auto 0.02 X10*3/uL (0.00-0.03); Imm Gran Pct Auto 0.2 % (0.0-0.4); Lymphocytes Absolute Auto 0.5 X10*3/uL (1.2-4.9); Lymphocytes Percent Auto 5.9 % (20-40); Mean Corpuscular HGB Conc 26.3 g/dl (31.0-36.0); Mean Corpuscular Hemoglobin 20.2 pg (27.0-33.0); Mean Corpuscular Volume 76.7 fL (80.0-98.0); Mean Platelet Volume 11.5 fL (9.4-12.4); Monocytes Absolute Auto 0.6 X10*3/uL (0.1-1.2); Monocytes Percent Auto 6.7 % (2-11); Neutrophils Absolute Auto 7.2 x10*3/uL (2.0-8.3); Neutrophils Percent Auto 86.9 % (45-73); Platelet Count 251 X10*3/uL (160-400); Red Blood Count 2.23 X10*6/uL (4.60-5.80); Red Cell Distribution Width 16.6 % (11.0-16.0); White Blood Count 8.3 X10*3/uL (4.8-10.8)
[2024-01-11 11:20] LABS: D Dimer High Sensitivity 187 NG/ML; Hemoglobin 4.5 g/dl (14.0-18.0)
[2024-01-11 11:21] LABS: Hematocrit 17.1 % (42.0-52.0)
[2024-01-11 11:30] LABS: Influenza A PCR NEGATIVE (Negative); Influenza B PCR NEGATIVE (Negative); Resp Syncy Virus RNA Qual PCR NEGATIVE (Negative); SARS COV2 PCR INHOUSE NEGATIVE (Negative)
[2024-01-11 11:35] LABS: Alanine Aminotransferase < 5 U/L (0-40); Albumin Level 3.5 g/dL (3.5-5.0); Alkaline Phosphatase 27 U/L (39-117); Anion Gap 17 (12-20); Aspartate Amino Transferase 13 U/L (5-37); Bilirubin Direct 0.1 mg/dL (0.0-0.5); Bilirubin Total 0.3 mg/dL (0.0-1.0); Blood Urea Nitrogen 22 mg/dL (9-16); Calcium 10.4 mg/dL (8.4-10.2); Carbon Dioxide 22 mmol/L (22-29); Chloride 107 mmol/L (96-108); Creatinine Clr Calc Pharmacy 52.5; Estimated Glomerular Filt Rate 45; Glucose Random 125 mg/dL (60-115); Lipase 6 U/L (8-78); Potassium 4.8 mmol/L (3.3-5.1); Sodium 141 mmol/L (135-145); Total Protein 6.6 g/dL (6.5-8.0)
[2024-01-11 11:36] LABS: B Type Natriuretic Peptide 674 pg/mL (<100)
[2024-01-11 11:45] LABS: Troponin-I High Sensitivity 767.6 ng/L (<3.5-35.0)
--- NOTE | 2024-01-11 11:55 | ECG_ITS ---
Test Reason : WEAKNESS Blood Pressure : / mmHG Vent. Rate : 117 BPM Atrial Rate : 117 BPM P-R Int : 194 ms QRS Dur : 104 ms QT Int : 350 ms P-R-T Axes : 100 052 084 degrees QTc Int : 488 ms Sinus tachycardia with occasional Premature ventricular complexes Cannot rule out Inferior infarct , age undetermined ST & T wave abnormality, consider lateral ischemia Abnormal ECG No previous ECGs available Referred By: Marlen Martinez Electronically Signed By:ROLAN JONES MD
[2024-01-11 11:58] LABS: OBS Int Ctl Valid YES; OBS1 POSITIVE (NEGATIVE)
[2024-01-11 14:30] LABS: Troponin-I High Sensitivity 867.9 ng/L (<3.5-35.0)
[2024-01-11] MEDS: oxyCODONE HCl Immed Release 5 MG TABLET PO (14:34)
[2024-01-11 15:06] LABS: Glucose, Whole Blood 254 mg/dL (60-115)
[2024-01-11] MEDS: Furosemide 40 MG/4 ML VIAL IVPUSH ×2 (15:08→21:43)
[2024-01-11 15:14] LABS: ABG Base Excess -22.3 mmol/L; ABG HCO3 9 mmol/L (22-26); ABG pCO2 49 mmHg (32-45); ABG pH 6.88 (7.35-7.45); ABG pO2 78 mmHg (83-108)
[2024-01-11] MEDS: Nitroglycerin 2 % Oint 1 GM Packet 0.5 INCH TRANSDERMA (15:15)
--- NOTE | 2024-01-11 15:48 | PM.EVENT ---
Event Note Date of Service: 01/11/24 Event Note: ICU called for admission, patient hypotensive, with profound mixed respiratory and metabolic acidotic, in setting of acute anemia; upon evaluation, patient hypotensive, 60s/30s, confused, agitated, pulling at BiPAP mask; patient with appreciable rales; abdomen soft, appears non-tender; no appreciable pitting edema; recommendations include pressure-bagging pRBC, vasopresors in the interim, adequate access with at least 2 18 gauge IVs or central line, and very close monitoring of airway and work of breathing; ICU will gladly take patient when bed is available Time Spent With Patient Time: Total time managing care of this patient today ____ minutes.
[2024-01-11 15:49] LABS: VBG Base Excess -21.6 mmol/L; VBG HCO3 10 mmol/L (22-26); VBG O2 % Saturation < 30.0 %; VBG pCO2 55 mmHg; VBG pH 6.87 (7.32-7.43); VBG pO2 29 mmHg
--- NOTE | 2024-01-11 16:00 | PC.NURSE ---
At approximately 3pm came to hallway stating that her needed pain medication. This RN into room, patient requesting pain medication for chronic left shoulder pain, provider notified and stating he would order tylenol d/t patients low BP. Explained to patient and that d/t hypotension provider would be ordering tylenol. Patient become agitated stating that he takes 6 tylenol with codeines at home daily. Attempting to get out of bed to leave. Provider called back to bed side to speak to patient. Provider explained that pain meds can lower patients BP. Patient and insistent that he takes narcotic pain medication at home and he will be fine. Provider ordered oxycodone and patient was medicated per jan. Within moments of being medicated patient became increasingly restless, confused, and agitated. Removed x 2 ivs lines while blood transfusion was running. Provider at bedside to assess patient. Patient became unresponsive, pale and tacycardic, de sated down into 70%`s. Placed on non rebreather at 15l and respiratory called.order placed for stat chest x ray. Some improvement with non-rebreather 02 sat up to high 80`s. Respiratory at bedside and switched patient to Bipap, dentures removed and given to . Provider at bedside preparing to intubate however stating she burton not want intubated because she is afraid that he will never come off the ventilator. Patient with new JVD distension provider aware and stating to give lasiks and not re start transfusion. 2 20g IV`s started, 1 18 g iv placed in left arm. Medicated per jan. 16f 10cc herbert placed with 150mls immediate clear yellow urine output. Blood transfusion re started at 3:30pm, patient with JVD- provider aware stating to restart blood. Patent more alert responding to verbal stimuli, color improving, remains tacycardic. Seen by icu provider for admission. Patient restless bilat soft restraints placed per candido verbal order. At 4;30 seen by respiratory and switched to CPAP, setting 10 @ 100%. and son at bedside stating patient is a do not intuabte but would want CPR if needed
[2024-01-11 16:10] LABS: Appearance Urine Clear; Color Urine Yellow; Glucose Urine UA Negative (Negative); Leukocyte Esterase Urine Negative (Negative); Nitrite Urine Negative (Negative); Specific Gravity - Urine 1.025 (1.005-1.025); Urine Blood Negative (Negative); Urine Ketones Trace mg/dL (Negative); Urine Protein Negative (Neg-Trace)
[2024-01-11 16:11] LABS: MANUAL DIFF FLAG NO
[2024-01-11 16:13] LABS: Basophils Absolute Auto 0.1 X10*3/uL (0.0-0.2); Basophils Percent Auto 0.4 % (0-2); Eosinophils Percent Auto 0.1 % (0-4); Imm Gran Abs Auto 0.19 X10*3/uL (0.00-0.03); Imm Gran Pct Auto 1.4 % (0.0-0.4); Lymphocytes Absolute Auto 1.4 X10*3/uL (1.2-4.9); Lymphocytes Percent Auto 10.3 % (20-40); Mean Corpuscular HGB Conc 25.7 g/dl (31.0-36.0); Mean Corpuscular Hemoglobin 21.6 pg (27.0-33.0); Mean Platelet Volume 12.3 fL (9.4-12.4); Monocytes Absolute Auto 0.2 X10*3/uL (0.1-1.2); Monocytes Percent Auto 1.2 % (2-11); NRBC Pct Auto 0.8 /100WBC (0.0-0.2); Neutrophils Absolute Auto 11.8 x10*3/uL (2.0-8.3); Neutrophils Percent Auto 86.6 % (45-73); Platelet Count 312 X10*3/uL (160-400); Red Cell Distribution Width 17.4 % (11.0-16.0); White Blood Count 13.6 X10*3/uL (4.8-10.8)
[2024-01-11 16:24] LABS: Hemoglobin 5.4 g/dl (14.0-18.0)
[2024-01-11 16:29] LABS: Anion Gap 30 (12-20); Blood Urea Nitrogen 23 mg/dL (9-16); Calcium 10.8 mg/dL (8.4-10.2); Carbon Dioxide 10 mmol/L (22-29); Chloride 106 mmol/L (96-108); Creatinine Clr Calc Pharmacy 42.4; Estimated Glomerular Filt Rate 35; Glucose Random 343 mg/dL (60-115); Sodium 141 mmol/L (135-145)
--- NOTE | 2024-01-11 16:38 | PC.NURSE ---
Per provider verbal order nitro paste removed at 1606
--- NOTE | 2024-01-11 17:32 | PM.CCHP ---
History of Present Illness Date of Service: 01/11/24 Chief Complaint: Dyspnea Patient?is a 73 Y M with COPD c/b chronic respiratory failure, prior lung cancer, s/p lobectomy, prior throat cancer, s/p radiation, carotid stenosis s/p endarterectomy, and prior episodes of acute blood loss anemia, last episode 09/2022 w/ un-revealing EGD and colonoscopy, presenting to emergency department?w/ dyspnea, found to be profoundly anemic, in shock with profound metabolic acidosis Review of Systems Review of Systems: Yes all other systems are reviewed and are negative [facility], [facility] Past Medical History Medical History Bronchitis Respiratory failure with hypoxia Acute on chronic blood loss anemia Acute kidney injury Hypoxemia COPD (chronic obstructive pulmonary disease) Sepsis Decreased oral intake Lung cancer Throat cancer Claudication in peripheral vascular disease Chronic sinusitis Hypercholesterolemia Family History Family History Father No problems noted. Mother No problems noted. Surgical History Surgical History H/O carotid endarterectomy History of total left knee replacement H/O neck surgery History of carpal tunnel release S/P tonsillectomy History of knee surgery Social History Social History Household Members: Spouse Housing: [facility] Do you presently have visiting nurse or other home services: No Alcohol intake: never Patient Tobacco Use Status: Former Tobacco user Tobacco use type: Cigarette Second Hand Smoke Exposure: No Advance Directives: Yes Advance Directives on File: Yes Advance Directives Date on File: 10/01/22 service: Yes Current occupational status: retired and disabled Current occupation: right handed Meds Allergies Allergy/AdvReac Type Severity Reaction Status Date / Time moxifloxacin Allergy Numbness Verified 09/19/23 13:43 Active Medications: Current Medications Dextrose (Dextrose 50 % 25 Gm/50 Ml Syringe) 25 gm IVPUSH Q15M PRN; Protocol PRN Reason: per Hypoglycemia Standing Ord. Glucose (Glucose Gel 15 Gm Gel..Gram.) 15 gm PO Q15M PRN; Protocol PRN Reason: per Hypoglycemia Standing Ord. Piperacillin Sod/Tazobactam (Sod 3.375 gm/ Sodium Chloride) 50 mls @ 100 mls/hr IV ONCE ONE Stop: 01/11/24 17:45 Pantoprazole Sodium 80 mg/ (Sodium Chloride) 120 mls @ 400 mls/hr IV ONCE ONE Stop: 01/11/24 17:38 Dexmedetomidine HCl (Precedex) 400 mcg in 100 mls @ 0 mls/hr IVCONT .Q0M QUINN; Protocol Norepinephrine Bitartrate (Levophed) 8 mg in 250 mls @ 0 mls/hr IV .Q0M QUINN; Protocol Sodium Bicarbonate 150 meq/ (Dextrose) 1,000 mls @ 50 mls/hr IV .Q20H QUINN Cefepime HCl 2 gm/ Sodium (Chloride) 50 mls @ 100 mls/hr IV Q8H QUINN Vancomycin HCl (Vancomycin/Ns) 2,000 mg in 500 mls @ 250 mls/hr IV ONCE ONE Stop: 01/11/24 19:29 Insulin Human Lispro (Insulin Lispro 100 Unit/Ml 3 Ml Vial) 0 unit SUBCUT Q6H QUINN; Protocol Pantoprazole Sodium (Pantoprazole Sodium 40 Mg/10 Ml Vial) 40 mg IVPUSH BID [facility] Pharmacy Consult (Consult Rx Vancomycin Dosing) 1 each MISCELLANE DAILY PRN PRN Reason: Consult order Home Medications Medication Instructions Recorded Confirmed Last Taken Type aspirin 81 mg chewable tablet 81 mg PO DAILY 11/14/20 05/10/23 10/01/22 History apixaban 5 mg tablet 2.5 mg PO BID 10/01/22 05/10/23 10/01/22 History levothyroxine 50 mcg tablet 50 mcg PO DAILY 10/01/22 05/10/23 10/01/22 History (Synthroid) simvastatin 80 mg tablet 40 mg PO DAILY 10/01/22 05/10/23 10/01/22 History cholecalciferol (vitamin D3) 25 25 mcg PO DAILY 04/23/23 05/10/23 Unknown History mcg (1,000 unit) capsule Physical Exam Vital Signs: Vital Signs: Last Vital Signs Temp 98.8 F 01/11/24 13:16 Pulse 121 H 01/11/24 17:21 Resp 18 01/11/24 17:21 BP 145/97 H 01/11/24 17:21 Pulse Ox 100 01/11/24 17:21 O2 Del Method CPAP 01/11/24 17:21 O2 Flow Rate 4 01/11/24 12:00 BMI result Body Mass Index 24.5 Const: Other: appreciably more alert, answers yes-no questions Orientation/consciousness: oriented to person and oriented to place HEENT: Head: Yes normal to inspection, Yes normocephalic and Yes atraumatic Eyes: General: appearance normal, both eyes and all related structures Neck: Neck: Yes normal visual inspection, Yes full ROM, Yes no meningeal signs and Yes supple Chest: Chest palpation & inspection: normal inspection of the chest Resp: Other: appreciable diffuse rales Cardio: Rate: tachycardic Rhythm: regular rhythm GI: Inspection: Yes normal to inspection, No Abdominal wall edema and No distended Palpation (GI): Soft to palpation, not firm, nontender, no guarding and not rigid : Male General Exam: Yes normal external exam Back/Spine/Pelvis: Other: no appreciable induration, ecchymoses Skin: General skin exam: no rashes or lesions noted Neuro: General: oriented to person, oriented to place, tone normal, moves all extremities, no meningeal signs and no focal motor deficits Extrem: Other: all compartments soft General: Yes normal to inspection, Yes capillary refill normal and Yes no clubbing, cyanosis or edema Results Labs 01/11/24 16:08 01/11/24 16:08 Labs: Laboratory Results - last 24 hr 01/11/24 01/11/24 01/11/24 10:41 11:05 11:49 MCV 76.7 L MCH 20.2 L MCHC 26.3 L RDW 16.6 H Plt Count 251 MPV 11.5 Immature Gran % (Auto) 0.2 Neut % (Auto) 86.9 H Lymph % (Auto) 5.9 L [place] % (Auto) 6.7 Eos % (Auto) 0.1 Baso % (Auto) 0.2 Lymph # (Auto) 0.5 L [place] # (Auto) 0.6 Eos # (Auto) 0.0 Baso # (Auto) 0.0 Abs Immat Gran (auto) 0.02 Absolute Neuts (auto) 7.2 Absolute Nucleated RBC 0.000 Nucleated RBC % (auto) 0.0 D-Dimer High Sensitivty 187 ABG pH at Pt Temp ABG pCO2 at Pt Temp ABG pO2 at Pt Temp ABG HCO3 ABG Base Excess (Actual) VBG pH VBG pCO2 VBG pO2 VBG HCO3 VBG O2 Saturation VBG Base Excess Anion Gap 17 Estim Creat Clear Calc 52.5 Estimated GFR 45 POC Glucose Random Glucose 125 H Calcium 10.4 H D Total Bilirubin 0.3 Direct Bilirubin 0.1 AST 13 ALT < 5 Alkaline Phosphatase 27 L Troponin I High Sens 767.6 H* B-Natriuretic Peptide 674 H Total Protein 6.6 Albumin 3.5 Lipase 6 L Urine Color Urine Appearance Urine pH Ur Specific [place] Urine Protein Urine Glucose (UA) Urine Ketones Urine Blood Urine Nitrite Ur Leukocyte Esterase Stool Occult Blood POSITIVE Influenza Type A (PCR) NEGATIVE Influenza Type B (PCR) NEGATIVE RSV RNA Qual (PCR) NEGATIVE SARS-CoV-2 RNA (RT-PCR) NEGATIVE Blood Type O Positive Antibody Screen NEGATIVE Crossmatch See Detail 01/11/24 01/11/24 01/11/24 13:57 14:58 15:06 MCV MCH MCHC RDW Plt Count MPV Immature Gran % (Auto) Neut % (Auto) Lymph % (Auto) [place] % (Auto) Eos % (Auto) Baso % (Auto) Lymph # (Auto) [place] # (Auto) Eos # (Auto) Baso # (Auto) Abs Immat Gran (auto) Absolute Neuts (auto) Absolute Nucleated RBC Nucleated RBC % (auto) D-Dimer High Sensitivty ABG pH at Pt Temp 6.88 L* ABG pCO2 at Pt Temp 49 H ABG pO2 at Pt Temp 78 L ABG HCO3 9 L ABG Base Excess (Actual) -22.3 VBG pH VBG pCO2 VBG pO2 VBG HCO3 VBG O2 Saturation VBG Base Excess Anion Gap Estim Creat Clear Calc Estimated GFR POC Glucose 254 H Random Glucose Calcium Total Bilirubin Direct Bilirubin AST ALT Alkaline Phosphatase Troponin I High Sens 867.9 H* B-Natriuretic Peptide Total Protein Albumin Lipase Urine Color Urine Appearance Urine pH Ur Specific [place] Urine Protein Urine Glucose (UA) Urine Ketones Urine Blood Urine Nitrite Ur Leukocyte Esterase Stool Occult Blood Influenza Type A (PCR) Influenza Type B (PCR) RSV RNA Qual (PCR) SARS-CoV-2 RNA (RT-PCR) Blood Type Antibody Screen Crossmatch 01/11/24 01/11/24 01/11/24 15:42 15:54 16:08 MCV 84.0 D MCH 21.6 L MCHC 25.7 L RDW 17.4 H Plt Count 312 MPV 12.3 Immature Gran % (Auto) 1.4 H Neut % (Auto) 86.6 H Lymph % (Auto) 10.3 L [place] % (Auto) 1.2 L Eos % (Auto) 0.1 Baso % (Auto) 0.4 Lymph # (Auto) 1.4 [place] # (Auto) 0.2 Eos # (Auto) 0.0 Baso # (Auto) 0.1 Abs Immat Gran (auto) 0.19 H Absolute Neuts (auto) 11.8 H Absolute Nucleated RBC 0.110 H Nucleated RBC % (auto) 0.8 H D-Dimer High Sensitivty ABG pH at Pt Temp ABG pCO2 at Pt Temp ABG pO2 at Pt Temp ABG HCO3 ABG Base Excess (Actual) VBG pH 6.87 L* VBG pCO2 55 VBG pO2 29 VBG HCO3 10 L VBG O2 Saturation < 30.0 VBG Base Excess -21.6 Anion Gap 30 H Estim Creat Clear Calc 42.4 Estimated GFR 35 POC Glucose Random Glucose 343 H Calcium 10.8 H Total Bilirubin Direct Bilirubin AST ALT Alkaline Phosphatase Troponin I High Sens B-Natriuretic Peptide Total Protein Albumin Lipase Urine Color Yellow Urine Appearance Clear Urine pH 5.0 Ur Specific [place] 1.025 Urine Protein Negative Urine Glucose (UA) Negative Urine Ketones Trace Urine Blood Negative Urine Nitrite Negative Ur Leukocyte Esterase Negative Stool Occult Blood Influenza Type A (PCR) Influenza Type B (PCR) RSV RNA Qual (PCR) SARS-CoV-2 RNA (RT-PCR) Blood Type Antibody Screen Crossmatch Imaging Radiologist's Impressions: Impressions Venous Duplex 01/11/24 10:51 IMPRESSION: No DVT demonstrated in the right lower extremity. Chest X-Ray 01/11/24 11:40 IMPRESSION: No evidence for acute disease in the chest. Shoulder X-Ray 01/11/24 12:14 IMPRESSION: Normal left shoulder. Chest X-Ray 01/11/24 15:08 IMPRESSION: Compared to earlier same day, redemonstrated low lung volumes with new patchy bilateral airspace opacities, which given the rapid development is favored to reflect alveolar pulmonary edema, though multifocal infection or acute lung injury could appear similar. Assessment and Plan (1) Acute on chronic hypoxic respiratory failure: Status: Acute (2) Acute anemia: Status: Acute (3) COPD (chronic obstructive pulmonary disease): Qualifiers: COPD type: unspecified COPD Qualified Code(s): J44.9 - Chronic obstructive pulmonary disease, unspecified Status: Acute (4) Shock: Status: Acute Plan Patient?is a 73 Y M with COPD c/b chronic respiratory failure, prior lung cancer, s/p lobectomy, prior throat cancer, s/p radiation, carotid stenosis s/p endarterectomy, and prior episodes of acute blood loss anemia, last episode 09/2022 w/ un-revealing EGD and colonoscopy, presenting to emergency department?w/ dyspnea, found to be profoundly anemic, in shock N: encephalopathic, likely toxic-metabolic CV: hypotension, c/f hemorrhagic shock, transfuse as needed; troponinemia, likely demand, to trend R: c/f pulmonary edema in setting of transfusions; COPD c/b chronic respiratory failure; on CPAP GI: maintain high suspicion for GI bleed; appreciate GI recommendations : RUSSEL, likely pre-renal; to monitor renal indices very closely H: anemia, possibly d/t GI bleed; continue transfusions as needed ID: shock; empiric vancomycin, cefepime; to follow-up UA, BCx E: diabetes mellitus, hyperglycemia; insulin sliding scale; follow-up TSH P: no acute issues
--- NOTE | 2024-01-11 17:51 | PC.NURSE ---
Patient alert and oriented, transported to ICU after report given to ANETTE anderson. Family aware of plan of care
[2024-01-11 18:21] LABS: Glucose, Whole Blood 286 mg/dL (60-115)
[2024-01-11] MEDS: Piperacillin Sodium/Tazobactam 3.375 GM in 0.9 % Sodium Chloride 50 ML IV (18:22)
[2024-01-11] MEDS: Sodium Bicarbonate 8.4% 150 MEQ in Dextrose 5 % 850 ML 50 MEQ IV (18:23)
[2024-01-11 18:43] LABS: Appearance Urine Clear; Color Urine Yellow; Glucose Urine UA Negative (Negative); Leukocyte Esterase Urine Negative (Negative); Nitrite Urine Negative (Negative); Specific Gravity - Urine 1.015 (1.005-1.025); UMIC TRIGGER UA YES; Urine Blood Trace (Negative); Urine Ketones Negative (Negative); Urine Protein 30 (1+) mg/dL (Neg-Trace)
[2024-01-11 18:47] LABS: Bacteria Urine None Seen (None Seen); RBC Urine 0-2 /HPF (0-2)
[2024-01-11 18:48] LABS: INTERNATIONAL NORM RATIO 1.5 (0.9-1.1); Prothrombin Time 17.9 SEC (11.1-13.3)
[2024-01-11] MEDS: Insulin Lispro 100 UNIT/ML 3 ML VIAL SUBCUT ×2 (18:48→23:48)
[2024-01-11] MEDS: Furosemide 20 MG/2 ML VIAL IVPUSH (18:48)
--- NOTE | 2024-01-11 18:51 | P.ACPN_ITS ---
Advanced Care Planning Note Advanced Care Planning Note Discussed with: family member(s) Time spent (in minutes): 30 Narrative: I introduced myself to Mr. Encarnacion's and son. I offered updates and clarifications. We discussed Mr. Encarnacion's guarded clinical status. I clarified that Mr. Encarnacion wishes are to be DNI, which his and son stated Mr. Encarnacion has seen his own father on a ventilator, and has since not wanted to be on ventilators or other life-sustaining measures himself. We also discussed CPR, after which Mr. Encarnacion's and son stated Mr. Encarnacion would likely not want as well. Mr. Encarnacion's code status was changed to DNR/DN I. However, Mr. Encarnacion's and son believe he would be ammendable to non- invasive ventilation and central lines. Problems Discussed (1) Acute on chronic hypoxic respiratory failure: (2) Acute anemia: (3) COPD (chronic obstructive pulmonary disease): (4) Shock:
[2024-01-11] MEDS: Norepinephrine Bitartrate/D5W 8 MG/250 ML PLAST..BAG 8.33 MG IV (19:00)
[2024-01-11 19:08] LABS: Lactic Acid 24.7 mmol/L (0.5-2.0); Troponin-I High Sensitivity 3211.1 ng/L (<3.5-35.0)
[2024-01-11 19:09] LABS: Anion Gap 37 (12-20); Blood Urea Nitrogen 25 mg/dL (9-16); Calcium 11.6 mg/dL (8.4-10.2); Carbon Dioxide 7 mmol/L (22-29); Chloride 106 mmol/L (96-108); Creatinine Clr Calc Pharmacy 38.5; Estimated Glomerular Filt Rate 32; Glucose Random 270 mg/dL (60-115); Magnesium 2.8 mg/dL (1.6-2.6); Phosphorus 10.8 mg/dL (2.7-4.5); Potassium 5.2 mmol/L (3.3-5.1); Sodium 145 mmol/L (135-145)
--- NOTE | 2024-01-11 19:17 | PC.NURSE ---
pt arrived from ED. No paperwork and meds present. pt on cpap, RT at bedside. Meds being administered as ordered w/ difficulty in administration d/t pt having 3 IVs and numerous IV meds ordered along with blood. Admit assessment completed with family at bedside.
[2024-01-11] MEDS: HYDROmorphone HCl 0.5 MG/0.5 ML SYRINGE IVPUSH (19:35)
[2024-01-11] MEDS: Albuterol Sulfate 7.5 MG, Albuterol Sulfate (0.083%) 2.5 MG 10 MG INHALE (19:38)
[2024-01-11] MEDS: Sodium Bicarbonate 8.4% 50 MEQ/50 ML VIAL 100 MEQ IVPUSH (19:45)
[2024-01-11] MEDS: Insulin Regular, Human 100 UNIT/ML 3 ML VIAL IVPUSH (19:45)
[2024-01-11] MEDS: Dextrose 50 % 25 GM/50 ML SYRINGE IVPUSH (19:46)
[2024-01-11] MEDS: cefEPime HCl 2 GM in 0.9 % Sodium Chloride 50 ML IV (19:58)
[2024-01-11 20:33] LABS: Reflex Lactate? Lactic Acid Added
--- NOTE | 2024-01-11 20:51 | W.PM.CCHP ---
Procedures Date of Service Date of Service: 01/12/24 Central Line Placement Left IJ: Consent for Procedure: Elective - informed consent obtained (from at bedside) Time out performed: Yes Sterile Technique Used: Yes Patient placed on monitor/pulse ox: Yes MD prep: mask, gown, gloves and other Central line prep: Chlorhexidine scrub, sterile drapes applied and other (additionally the patient become combative during the procedure and I had to administer concious sedation with 20mg of IV propofol push which worked just fine; patient was on BiPap) Local anesthesia used: lidocaine 1% Amount of anesthesia used (ml): 5 Ultrasound used for placement: Yes Central line lumen inserted: triple (20) Post procedure: sutured in place, good blood return, all ports aspirated, flushed, capped and sterile dressing applied Post procedure x-ray: tip of catheter in good position and no pneumothorax seen Patient tolerated procedure: well Complications: none
[2024-01-11 21:15] LABS: Venous Blood Gas Refer to POC result
[2024-01-11 21:16] LABS: VBG Base Excess -12.5 mmol/L; VBG HCO3 17 mmol/L (22-26); VBG pCO2 55 mmHg; VBG pH 7.08 (7.32-7.43); VBG pO2 54 mmHg
[2024-01-11 21:28] LABS: ~Lactic Acid-LAB USE ONLY 13.4 mmol/L (0.5-2.0)
[2024-01-11] MEDS: vancomycin/NS 2,000 MG/500 ML PLAST..BAG 250 MG IV (21:43)
[2024-01-11] MEDS: propofoL 200 MG/20 ML VIAL 20 MG IVPUSH (21:44)
[2024-01-11] MEDS: Metoprolol Tartrate 5 MG/5 ML VIAL IVPUSH (21:45)
[2024-01-11 21:53] LABS: Glucose, Whole Blood 251 mg/dL (60-115)
[2024-01-11] MEDS: Azithromycin 500 MG in 0.9 % Sodium Chloride 250 ML 125 MG IV (22:20)
[2024-01-11] MEDS: Pantoprazole Sodium 40 MG/10 ML VIAL IVPUSH (22:20)
[2024-01-11 22:34] LABS: ABG Refer to POC result
[2024-01-11 22:47] LABS: Hematocrit 24.1 % (42.0-52.0); Mean Corpuscular HGB Conc 27.8 g/dl (31.0-36.0); Mean Corpuscular Hemoglobin 23.7 pg (27.0-33.0); Mean Corpuscular Volume 85.2 fL (80.0-98.0); Mean Platelet Volume 11.8 fL (9.4-12.4); Platelet Count 341 X10*3/uL (160-400); Red Blood Count 2.83 X10*6/uL (4.60-5.80); Red Cell Distribution Width 18.9 % (11.0-16.0); White Blood Count 28.7 X10*3/uL (4.8-10.8)
[2024-01-11 22:53] LABS: NRBC Pct Auto 1.8 /100WBC (0.0-0.2)
[2024-01-11 22:54] LABS: VBG HCO3 19 mmol/L (22-26); VBG pCO2 57 mmHg; VBG pH 7.13 (7.32-7.43); VBG pO2 36 mmHg
[2024-01-11 22:55] LABS: Hemoglobin 6.7 g/dl (14.0-18.0)
[2024-01-11 22:57] LABS: Venous Blood Gas Refer to POC result
[2024-01-11 23:04] LABS: Reflex Lactate? 2 Y
[2024-01-11 23:07] LABS: SLIDE REVIEW MANUAL DIFF
[2024-01-11 23:11] LABS: Alanine Aminotransferase 16 U/L (0-40); Alkaline Phosphatase 26 U/L (39-117); Anion Gap 28 (12-20); Aspartate Amino Transferase 102 U/L (5-37); Blood Urea Nitrogen 29 mg/dL (9-16); Calcium 10.7 mg/dL (8.4-10.2); Carbon Dioxide 19 mmol/L (22-29); Chloride 104 mmol/L (96-108); Creatinine Clr Calc Pharmacy 32.8; Estimated Glomerular Filt Rate 26; Glucose Random 261 mg/dL (60-115); Potassium 4.1 mmol/L (3.3-5.1); Sodium 147 mmol/L (135-145); Total Protein 5.7 g/dL (6.5-8.0)
[2024-01-11 23:14] LABS: Band Neutrophils Percent 4 % (3-5); Lymphocytes Absolute Manual 1.1 X10*3/uL (1.2-4.9); Lymphocytes Percent Manual 4 % (20-40); Monocytes Absolute Manual 0.9 X10*3/uL (0.1-1.2); Monocytes Percent Manual 3 % (2-11); Neutrophils Absolute Manual 26.7 X10*3/uL (2.0-8.3); Neutrophils Percent Manual 89 % (45-73)
[2024-01-11 23:15] LABS: Ovalocytes 1+ (5-14) /OIF; RBC Morphology NOTED
[2024-01-11 23:16] LABS: Acanthocytes 1+ (0-2) /OIF; Nucleated Red Blood Cells 2 /100WBC (0-0); Platelet Estimate NORMAL (NORMAL); Platelet Morphology Comment NORMAL; Toxic Granulation PRESENT
[2024-01-12] VITALS (35 sets, daily range): BP systolic 46–151; BP diastolic 27–123; PULSE 86–126; RESP 15–32; TEMP 36.7–37.5; O2SAT 68–92; BMI 24.5; BMI 25.8
[2024-01-12 00:13] LABS: ~Lactic Acid-LAB USE ONLY 13.9 mmol/L (0.5-2.0)
[2024-01-12] MEDS: HYDROmorphone HCl 0.5 MG/0.5 ML SYRINGE IVPUSH ×3 (01:17→11:40)
[2024-01-12] MEDS: cefEPime HCl 2 GM in 0.9 % Sodium Chloride 50 ML IV ×2 (01:19→09:28)
[2024-01-12] MEDS: Norepinephrine Bitartrate/D5W 8 MG/250 ML PLAST..BAG 41.63 MG IV ×2 (02:15→08:26)
[2024-01-12 02:18] LABS: Venous Blood Gas Refer to POC result
[2024-01-12 02:18] LABS: VBG HCO3 21 mmol/L (22-26); VBG pCO2 61 mmHg; VBG pH 7.13 (7.32-7.43); VBG pO2 35 mmHg
[2024-01-12 02:19] LABS: Hemoglobin 7.9 g/dl (14.0-18.0); Mean Corpuscular HGB Conc 28.2 g/dl (31.0-36.0); Mean Corpuscular Hemoglobin 24.2 pg (27.0-33.0); Mean Corpuscular Volume 85.6 fL (80.0-98.0); Mean Platelet Volume 11.8 fL (9.4-12.4); Platelet Count 338 X10*3/uL (160-400); Red Blood Count 3.27 X10*6/uL (4.60-5.80); Red Cell Distribution Width 18.3 % (11.0-16.0)
[2024-01-12 02:21] LABS: NRBC Pct Auto 2.2 /100WBC (0.0-0.2); WBC ABN SCTR FOR CBC 1
[2024-01-12 02:23] LABS: White Blood Count 31.2 X10*3/uL (4.8-10.8)
[2024-01-12 02:28] LABS: Alanine Aminotransferase 102 U/L (0-40); Albumin Level 3.2 g/dL (3.5-5.0); Alkaline Phosphatase 29 U/L (39-117); Anion Gap 28 (12-20); Aspartate Amino Transferase 220 U/L (5-37); Bilirubin Total 3.7 mg/dL (0.0-1.0); Blood Urea Nitrogen 32 mg/dL (9-16); Calcium 10.1 mg/dL (8.4-10.2); Carbon Dioxide 20 mmol/L (22-29); Chloride 103 mmol/L (96-108); Creatinine Clr Calc Pharmacy 31.7; Estimated Glomerular Filt Rate 25; Glucose Random 189 mg/dL (60-115); Potassium 4.5 mmol/L (3.3-5.1); Sodium 146 mmol/L (135-145); Total Protein 5.9 g/dL (6.5-8.0)
[2024-01-12 02:43] LABS: Band Neutrophils Percent 4 % (3-5); Lymphocytes Absolute Manual 0.3 X10*3/uL (1.2-4.9); Lymphocytes Percent Manual 1 % (20-40); Metamyelocytes Absolute 0.3 X10*3/uL; Metamyelocytes Percent 1 %; Monocytes Absolute Manual 0.6 X10*3/uL (0.1-1.2); Monocytes Percent Manual 2 % (2-11); Neutrophils Percent Manual 92 % (45-73); Nucleated Red Blood Cells 6 /100WBC (0-0)
[2024-01-12 02:44] LABS: Large Platelet PRESENT; Platelet Estimate NORMAL (NORMAL); Platelet Morphology Comment NOTED; RBC Morphology NORMAL
[2024-01-12 02:45] LABS: Acanthocytes 1+ (0-2) /OIF; Polychromasia 1+ (0-2) /OIF; Schistocytes 1+ (0-2) /OIF; Tear Drop Cells 1+ (0-2) /OIF
[2024-01-12] MEDS: Sodium Bicarbonate 8.4% 150 MEQ in Dextrose 5 % 850 ML 50 MEQ IV (03:05)
[2024-01-12 05:19] LABS: VBG Base Excess -4.7 mmol/L; VBG HCO3 22 mmol/L (22-26); VBG pCO2 49 mmHg; VBG pH 7.25 (7.32-7.43); VBG pO2 35 mmHg
[2024-01-12 05:20] LABS: Venous Blood Gas Refer to POC result
[2024-01-12] MEDS: Levothyroxine Sodium 100 MCG/5 ML VIAL 25 MCG IVPUSH (05:44)
[2024-01-12 05:51] LABS: Basophils Absolute Auto 0.1 X10*3/uL (0.0-0.2); Basophils Percent Auto 0.2 % (0-2); Hematocrit 28.4 % (42.0-52.0); Hemoglobin 8.2 g/dl (14.0-18.0); Imm Gran Abs Auto 0.25 X10*3/uL (0.00-0.03); Imm Gran Pct Auto 0.8 % (0.0-0.4); Lymphocytes Absolute Auto 0.6 X10*3/uL (1.2-4.9); Lymphocytes Percent Auto 1.8 % (20-40); MANUAL DIFF FLAG SCAN; Mean Corpuscular HGB Conc 28.9 g/dl (31.0-36.0); Mean Corpuscular Hemoglobin 24.2 pg (27.0-33.0); Mean Corpuscular Volume 83.8 fL (80.0-98.0); Mean Platelet Volume 12.7 fL (9.4-12.4); Monocytes Absolute Auto 1.7 X10*3/uL (0.1-1.2); Monocytes Percent Auto 5.1 % (2-11); Neutrophils Absolute Auto 29.7 x10*3/uL (2.0-8.3); Neutrophils Percent Auto 92.1 % (45-73); Platelet Count 326 X10*3/uL (160-400); Red Blood Count 3.39 X10*6/uL (4.60-5.80); Red Cell Distribution Width 18.2 % (11.0-16.0); SCAN SMEAR FLAG 1
[2024-01-12 05:53] LABS: White Blood Count 32.3 X10*3/uL (4.8-10.8)
[2024-01-12 06:13] LABS: Alanine Aminotransferase 332 U/L (0-40); Albumin Level 3.2 g/dL (3.5-5.0); Alkaline Phosphatase 29 U/L (39-117); Anion Gap 25 (12-20); Aspartate Amino Transferase 474 U/L (5-37); Bilirubin Total 3.5 mg/dL (0.0-1.0); Blood Urea Nitrogen 34 mg/dL (9-16); Calcium 9.7 mg/dL (8.4-10.2); Carbon Dioxide 21 mmol/L (22-29); Chloride 102 mmol/L (96-108); Estimated Glomerular Filt Rate 25; Glucose Random 160 mg/dL (60-115); Magnesium 2.2 mg/dL (1.6-2.6); Phosphorus 9.4 mg/dL (2.7-4.5); Potassium 4.3 mmol/L (3.3-5.1); Sodium 144 mmol/L (135-145)
[2024-01-12 06:14] LABS: Troponin-I High Sensitivity > 60000.0 ng/L (<3.5-35.0)
--- NOTE | 2024-01-12 06:52 | PC.NURSE ---
Upon initial assessment at 1900- pt A&Ox2, intermittently agitated, restless, and reaching for lines/tubes. /son at bedside. Medicated with PRN Dilaudid per MAR. PRBC infusing per TAR. CPAP changed to BiPAP 14/10/75%, unable to obtain accurate SpO2- RT/PA aware. NSR on tele with PAC/PVCs, HR 90-100. Levophed ordered and titrated to maintain MAP > 65. At approx 2100- TL CVC placed to L IJ by JACOB Shelton, placement confirmed by pCXR. LS coarse throughout. Given Lasix 40 mg IVP x1 with no effect, UOP dropping throughout shift, output as charted. At 2200, pt increasingly obtunded and only responsive to deep painful stimuli. PA aware of all critical labs. at bedside overnight and updated on pt status/aware of plan of care. At approx 0600, pt slightly more responsive to verbal stimuli and ripping of mask. PA updated. Bed locked in lowest position, bed alarm on. Report given to oncoming RN.
--- NOTE | 2024-01-12 07:17 | PHA.MEDREC ---
Pharmacy Consult ? Medication Reconciliation Pharmacy has completed the medication reconciliation. Talked to pt's daughter who had list and utilized [place] med list that was faxed to pharmacy.
--- NOTE | 2024-01-12 07:54 | PM.CCPN ---
Subjective Subjective Date of Service: 01/12/24 Interval History: some improvement of anemia and metabolic acidosis, though strong evidence of multi-system organ failure evident by above detectable troponin, transaminitis, and acute renal insufficiency Critical Care Time (minutes): 90 Physical Exam Vital Signs: Vital Signs: Last Vital Signs Temp 99.1 F 01/12/24 07:00 Pulse 94 01/12/24 07:00 Resp 19 01/12/24 07:00 BP 96/57 L 01/12/24 07:00 Pulse Ox 91 L 01/12/24 07:00 O2 Del Method BiPAP 01/12/24 07:00 O2 Flow Rate 4 01/11/24 12:00 FiO2 75 01/12/24 07:00 BMI result Body Mass Index 24.5 Const: Other: lethargic, intermittently agitated HEENT: Head: Yes normal to inspection, Yes normocephalic and Yes atraumatic Eyes: General: appearance normal, both eyes and all related structures Neck: Other: L triple lumen central line in place w/o appreciable hematoma Neck: Yes normal visual inspection, Yes full ROM, Yes trachea midline and Yes supple Chest: Chest palpation & inspection: normal inspection of the chest Resp: Other: decreased breath sounds throughout; some appreciable rhonchi; no appreciable rales, wheezing Cardio: Rate: tachycardic Rhythm: regular rhythm GI: Inspection: Yes normal to inspection, No Abdominal wall edema and No distended Palpation (GI): Soft to palpation, not firm, nontender, no guarding and not rigid : Male General Exam: Yes normal external exam Skin: General skin exam: no rashes or lesions noted Neuro: General: moves all extremities and no focal motor deficits Extrem: General: Yes normal to inspection, Yes capillary refill normal and Yes no clubbing, cyanosis or edema Psych: Other: intermittently agitated Objective Data Labs 01/12/24 05:08 01/12/24 05:08 Labs: Laboratory Results - last 24 hr 01/11/24 01/11/24 01/11/24 10:41 11:05 11:49 WBC 8.3 RBC 2.23 L D Hgb 4.5 L* D Hct 17.1 L* D MCV 76.7 L MCH 20.2 L MCHC 26.3 L RDW 16.6 H Plt Count 251 MPV 11.5 Immature Gran % (Auto) 0.2 Neut % (Auto) 86.9 H Lymph % (Auto) 5.9 L [place] % (Auto) 6.7 Eos % (Auto) 0.1 Baso % (Auto) 0.2 Lymph # (Auto) 0.5 L [place] # (Auto) 0.6 Eos # (Auto) 0.0 Baso # (Auto) 0.0 Abs Immat Gran (auto) 0.02 Absolute Neuts (auto) 7.2 Absolute Nucleated RBC 0.000 Nucleated RBC % (auto) 0.0 Neutrophils % (Manual) Band Neutrophils % Lymphocytes % (Manual) Monocytes % (Manual) Metamyelocytes % Abs Neuts (Manual) Lymphocytes # (Manual) Monocytes # (Manual) Metamyelocytes # Nucleated RBCs Toxic Granulation Platelet Estimate Large Platelets Plt Morphology Comment RBC Morphology Polychromasia Tear Drop Cells Ovalocytes Acanthocytes (Spur) Schistocytes Smear Tech's Comments PT INR D-Dimer High Sensitivty 187 O2 Saturation ABG pH at Pt Temp ABG pCO2 at Pt Temp ABG pO2 at Pt Temp ABG HCO3 ABG Base Excess (Actual) VBG pH VBG pCO2 VBG pO2 VBG HCO3 VBG O2 Saturation VBG Base Excess Sodium 141 Potassium 4.8 Chloride 107 Carbon Dioxide 22 Anion Gap 17 BUN 22 H Creatinine 1.52 H Estim Creat Clear Calc 52.5 Estimated GFR 45 POC Glucose Random Glucose 125 H Lactic Acid Lactic Acid F/U @ 2Hr Lactic Acid F/U @ 4Hr Calcium 10.4 H D Phosphorus Magnesium Total Bilirubin 0.3 Direct Bilirubin 0.1 AST 13 ALT < 5 Alkaline Phosphatase 27 L Troponin I High Sens 767.6 H* B-Natriuretic Peptide 674 H Total Protein 6.6 Albumin 3.5 Lipase 6 L TSH Urine Color Urine Appearance Urine pH Ur Specific [place] Urine Protein Urine Glucose (UA) Urine Ketones Urine Blood Urine Nitrite Ur Leukocyte Esterase Urine RBC Urine WBC Ur Squamous Epith Cells Urine Bacteria Hyaline Casts Stool Occult Blood POSITIVE Influenza Type A (PCR) NEGATIVE Influenza Type B (PCR) NEGATIVE RSV RNA Qual (PCR) NEGATIVE SARS-CoV-2 RNA (RT-PCR) NEGATIVE Blood Type O Positive Antibody Screen NEGATIVE Crossmatch See Detail 01/11/24 01/11/24 01/11/24 13:57 14:58 15:06 WBC RBC Hgb Hct MCV MCH MCHC RDW Plt Count MPV Immature Gran % (Auto) Neut % (Auto) Lymph % (Auto) [place] % (Auto) Eos % (Auto) Baso % (Auto) Lymph # (Auto) [place] # (Auto) Eos # (Auto) Baso # (Auto) Abs Immat Gran (auto) Absolute Neuts (auto) Absolute Nucleated RBC Nucleated RBC % (auto) Neutrophils % (Manual) Band Neutrophils % Lymphocytes % (Manual) Monocytes % (Manual) Metamyelocytes % Abs Neuts (Manual) Lymphocytes # (Manual) Monocytes # (Manual) Metamyelocytes # Nucleated RBCs Toxic Granulation Platelet Estimate Large Platelets Plt Morphology Comment RBC Morphology Polychromasia Tear Drop Cells Ovalocytes Acanthocytes (Spur) Schistocytes Smear Tech's Comments PT INR D-Dimer High Sensitivty O2 Saturation Not Reportable ABG pH at Pt Temp 6.88 L* ABG pCO2 at Pt Temp 49 H ABG pO2 at Pt Temp 78 L ABG HCO3 9 L ABG Base Excess (Actual) -22.3 VBG pH VBG pCO2 VBG pO2 VBG HCO3 VBG O2 Saturation VBG Base Excess Sodium Potassium Chloride Carbon Dioxide Anion Gap BUN Creatinine Estim Creat Clear Calc Estimated GFR POC Glucose 254 H Random Glucose Lactic Acid Lactic Acid F/U @ 2Hr Lactic Acid F/U @ 4Hr Calcium Phosphorus Magnesium Total Bilirubin Direct Bilirubin AST ALT Alkaline Phosphatase Troponin I High Sens 867.9 H* B-Natriuretic Peptide Total Protein Albumin Lipase TSH Urine Color Urine Appearance Urine pH Ur Specific [place] Urine Protein Urine Glucose (UA) Urine Ketones Urine Blood Urine Nitrite Ur Leukocyte Esterase Urine RBC Urine WBC Ur Squamous Epith Cells Urine Bacteria Hyaline Casts Stool Occult Blood Influenza Type A (PCR) Influenza Type B (PCR) RSV RNA Qual (PCR) SARS-CoV-2 RNA (RT-PCR) Blood Type Antibody Screen Crossmatch 01/11/24 01/11/24 01/11/24 15:42 15:54 16:08 WBC 13.6 H RBC 2.50 L Hgb 5.4 L* Hct 21.0 L* D MCV 84.0 D MCH 21.6 L MCHC 25.7 L RDW 17.4 H Plt Count 312 MPV 12.3 Immature Gran % (Auto) 1.4 H Neut % (Auto) 86.6 H Lymph % (Auto) 10.3 L [place] % (Auto) 1.2 L Eos % (Auto) 0.1 Baso % (Auto) 0.4 Lymph # (Auto) 1.4 [place] # (Auto) 0.2 Eos # (Auto) 0.0 Baso # (Auto) 0.1 Abs Immat Gran (auto) 0.19 H Absolute Neuts (auto) 11.8 H Absolute Nucleated RBC 0.110 H Nucleated RBC % (auto) 0.8 H Neutrophils % (Manual) Band Neutrophils % Lymphocytes % (Manual) Monocytes % (Manual) Metamyelocytes % Abs Neuts (Manual) Lymphocytes # (Manual) Monocytes # (Manual) Metamyelocytes # Nucleated RBCs Toxic Granulation Platelet Estimate Large Platelets Plt Morphology Comment RBC Morphology Polychromasia Tear Drop Cells Ovalocytes Acanthocytes (Spur) Schistocytes Smear Tech's Comments PT INR D-Dimer High Sensitivty O2 Saturation ABG pH at Pt Temp ABG pCO2 at Pt Temp ABG pO2 at Pt Temp ABG HCO3 ABG Base Excess (Actual) VBG pH 6.87 L* VBG pCO2 55 VBG pO2 29 VBG HCO3 10 L VBG O2 Saturation < 30.0 VBG Base Excess -21.6 Sodium 141 Potassium 5.0 Chloride 106 Carbon Dioxide 10 L* D Anion Gap 30 H BUN 23 H Creatinine 1.88 H Estim Creat Clear Calc 42.4 Estimated GFR 35 POC Glucose Random Glucose 343 H Lactic Acid Lactic Acid F/U @ 2Hr Lactic Acid F/U @ 4Hr Calcium 10.8 H Phosphorus Magnesium Total Bilirubin Direct Bilirubin AST ALT Alkaline Phosphatase Troponin I High Sens B-Natriuretic Peptide Total Protein Albumin Lipase TSH Urine Color Yellow Urine Appearance Clear Urine pH 5.0 Ur Specific [place] 1.025 Urine Protein Negative Urine Glucose (UA) Negative Urine Ketones Trace Urine Blood Negative Urine Nitrite Negative Ur Leukocyte Esterase Negative Urine RBC Urine WBC Ur Squamous Epith Cells Urine Bacteria Hyaline Casts Stool Occult Blood Influenza Type A (PCR) Influenza Type B (PCR) RSV RNA Qual (PCR) SARS-CoV-2 RNA (RT-PCR) Blood Type Antibody Screen Crossmatch 01/11/24 01/11/24 01/11/24 18:17 18:26 21:02 WBC RBC Hgb Hct MCV MCH MCHC RDW Plt Count MPV Immature Gran % (Auto) Neut % (Auto) Lymph % (Auto) [place] % (Auto) Eos % (Auto) Baso % (Auto) Lymph # (Auto) [place] # (Auto) Eos # (Auto) Baso # (Auto) Abs Immat Gran (auto) Absolute Neuts (auto) Absolute Nucleated RBC Nucleated RBC % (auto) Neutrophils % (Manual) Band Neutrophils % Lymphocytes % (Manual) Monocytes % (Manual) Metamyelocytes % Abs Neuts (Manual) Lymphocytes # (Manual) Monocytes # (Manual) Metamyelocytes # Nucleated RBCs Toxic Granulation Platelet Estimate Large Platelets Plt Morphology Comment RBC Morphology Polychromasia Tear Drop Cells Ovalocytes Acanthocytes (Spur) Schistocytes Smear Tech's Comments PT 17.9 H INR 1.5 H D-Dimer High Sensitivty O2 Saturation ABG pH at Pt Temp ABG pCO2 at Pt Temp ABG pO2 at Pt Temp ABG HCO3 ABG Base Excess (Actual) VBG pH 7.08 L* VBG pCO2 55 VBG pO2 54 VBG HCO3 17 L VBG O2 Saturation Not Reportable VBG Base Excess -12.5 Sodium 145 Potassium 5.2 H Chloride 106 Carbon Dioxide 7 L* D Anion Gap 37 H BUN 25 H Creatinine 2.07 H Estim Creat Clear Calc 38.5 Estimated GFR 32 POC Glucose 286 H Random Glucose 270 H Lactic Acid 24.7 H* Lactic Acid F/U @ 2Hr 13.4 H* Lactic Acid F/U @ 4Hr Calcium 11.6 H D Phosphorus 10.8 H Magnesium 2.8 H Total Bilirubin Direct Bilirubin AST ALT Alkaline Phosphatase Troponin I High Sens 3211.1 H* D B-Natriuretic Peptide Total Protein Albumin Lipase TSH 1.30 Urine Color Yellow Urine Appearance Clear Urine pH 5.0 Ur Specific [place] 1.015 Urine Protein 30 (1+) H Urine Glucose (UA) Negative Urine Ketones Negative Urine Blood Trace H Urine Nitrite Negative Ur Leukocyte Esterase Negative Urine RBC 0-2 Urine WBC 6-10 H Ur Squamous Epith Cells 3-5 Urine Bacteria None Seen Hyaline Casts 3-5 Stool Occult Blood Influenza Type A (PCR) Influenza Type B (PCR) RSV RNA Qual (PCR) SARS-CoV-2 RNA (RT-PCR) Blood Type Antibody Screen Crossmatch 01/11/24 01/11/24 01/11/24 21:49 22:39 22:44 WBC 28.7 H RBC 2.83 L Hgb 6.7 L* D Hct 24.1 L MCV 85.2 MCH 23.7 L MCHC 27.8 L RDW 18.9 H Plt Count 341 MPV 11.8 Immature Gran % (Auto) Cancelled Neut % (Auto) Cancelled Lymph % (Auto) Cancelled [place] % (Auto) Cancelled Eos % (Auto) Cancelled Baso % (Auto) Cancelled Lymph # (Auto) Cancelled [place] # (Auto) Cancelled Eos # (Auto) Cancelled Baso # (Auto) Cancelled Abs Immat Gran (auto) Cancelled Absolute Neuts (auto) Cancelled Absolute Nucleated RBC 0.530 H Nucleated RBC % (auto) 1.8 H Neutrophils % (Manual) 89 H Band Neutrophils % 4 Lymphocytes % (Manual) 4 L Monocytes % (Manual) 3 Metamyelocytes % Abs Neuts (Manual) 26.7 H Lymphocytes # (Manual) 1.1 L Monocytes # (Manual) 0.9 Metamyelocytes # Nucleated RBCs 2 H Toxic Granulation PRESENT Platelet Estimate NORMAL Large Platelets Plt Morphology Comment NORMAL RBC Morphology NOTED Polychromasia Tear Drop Cells Ovalocytes 1+ (5-14) Acanthocytes (Spur) 1+ (0-2) Schistocytes Smear Tech's Comments MANUAL DIFF PT INR D-Dimer High Sensitivty O2 Saturation ABG pH at Pt Temp ABG pCO2 at Pt Temp ABG pO2 at Pt Temp ABG HCO3 ABG Base Excess (Actual) VBG pH 7.13 L* VBG pCO2 57 VBG pO2 36 VBG HCO3 19 L VBG O2 Saturation 45.0 VBG Base Excess -9.0 Sodium 147 H Potassium 4.1 D Chloride 104 Carbon Dioxide 19 L Anion Gap 28 H BUN 29 H Creatinine 2.43 H Estim Creat Clear Calc 32.8 Estimated GFR 26 POC Glucose 251 H Random Glucose 261 H Lactic Acid Lactic Acid F/U @ 2Hr Lactic Acid F/U @ 4Hr Calcium 10.7 H D Phosphorus Magnesium Total Bilirubin 3.0 H Direct Bilirubin AST 102 H ALT 16 Alkaline Phosphatase 26 L Troponin I High Sens 60477.5 H* D B-Natriuretic Peptide Total Protein 5.7 L Albumin 3.0 L Lipase TSH Urine Color Urine Appearance Urine pH Ur Specific [place] Urine Protein Urine Glucose (UA) Urine Ketones Urine Blood Urine Nitrite Ur Leukocyte Esterase Urine RBC Urine WBC Ur Squamous Epith Cells Urine Bacteria Hyaline Casts Stool Occult Blood Influenza Type A (PCR) Influenza Type B (PCR) RSV RNA Qual (PCR) SARS-CoV-2 RNA (RT-PCR) Blood Type Antibody Screen Crossmatch 01/11/24 01/12/24 01/12/24 23:39 02:05 02:10 WBC 31.2 H* RBC 3.27 L Hgb 7.9 L Hct 28.0 L MCV 85.6 MCH 24.2 L MCHC 28.2 L RDW 18.3 H Plt Count 338 MPV 11.8 Immature Gran % (Auto) Cancelled Neut % (Auto) Cancelled Lymph % (Auto) Cancelled [place] % (Auto) Cancelled Eos % (Auto) Cancelled Baso % (Auto) Cancelled Lymph # (Auto) Cancelled [place] # (Auto) Cancelled Eos # (Auto) Cancelled Baso # (Auto) Cancelled Abs Immat Gran (auto) Cancelled Absolute Neuts (auto) Cancelled Absolute Nucleated RBC 0.690 H Nucleated RBC % (auto) 2.2 H Neutrophils % (Manual) 92 H Band Neutrophils % 4 Lymphocytes % (Manual) 1 L Monocytes % (Manual) 2 Metamyelocytes % 1 Abs Neuts (Manual) 30.0 H Lymphocytes # (Manual) 0.3 L Monocytes # (Manual) 0.6 Metamyelocytes # 0.3 Nucleated RBCs 6 H Toxic Granulation Platelet Estimate NORMAL Large Platelets PRESENT Plt Morphology Comment NOTED RBC Morphology NORMAL Polychromasia 1+ (0-2) Tear Drop Cells 1+ (0-2) Ovalocytes Acanthocytes (Spur) 1+ (0-2) Schistocytes 1+ (0-2) Smear Tech's Comments PT INR D-Dimer High Sensitivty O2 Saturation ABG pH at Pt Temp ABG pCO2 at Pt Temp ABG pO2 at Pt Temp ABG HCO3 ABG Base Excess (Actual) VBG pH 7.13 L* VBG pCO2 61 VBG pO2 35 VBG HCO3 21 L VBG O2 Saturation 48.0 VBG Base Excess -8.0 Sodium 146 H Potassium 4.5 Chloride 103 Carbon Dioxide 20 L Anion Gap 28 H BUN 32 H Creatinine 2.51 H Estim Creat Clear Calc 31.7 Estimated GFR 25 POC Glucose Random Glucose 189 H Lactic Acid Lactic Acid F/U @ 2Hr Lactic Acid F/U @ 4Hr 13.9 H* Calcium 10.1 Phosphorus Magnesium Total Bilirubin 3.7 H Direct Bilirubin AST 220 H ALT 102 H Alkaline Phosphatase 29 L Troponin I High Sens B-Natriuretic Peptide Total Protein 5.9 L Albumin 3.2 L Lipase TSH Urine Color Urine Appearance Urine pH Ur Specific [place] Urine Protein Urine Glucose (UA) Urine Ketones Urine Blood Urine Nitrite Ur Leukocyte Esterase Urine RBC Urine WBC Ur Squamous Epith Cells Urine Bacteria Hyaline Casts Stool Occult Blood Influenza Type A (PCR) Influenza Type B (PCR) RSV RNA Qual (PCR) SARS-CoV-2 RNA (RT-PCR) Blood Type Antibody Screen Crossmatch 01/12/24 01/12/24 05:08 05:11 WBC 32.3 H* RBC 3.39 L Hgb 8.2 L Hct 28.4 L MCV 83.8 MCH 24.2 L MCHC 28.9 L RDW 18.2 H Plt Count 326 MPV 12.7 H Immature Gran % (Auto) 0.8 H Neut % (Auto) 92.1 H Lymph % (Auto) 1.8 L [place] % (Auto) 5.1 Eos % (Auto) 0.0 Baso % (Auto) 0.2 Lymph # (Auto) 0.6 L [place] # (Auto) 1.7 H Eos # (Auto) 0.0 Baso # (Auto) 0.1 Abs Immat Gran (auto) 0.25 H Absolute Neuts (auto) 29.7 H Absolute Nucleated RBC 0.630 H Nucleated RBC % (auto) 2.0 H Neutrophils % (Manual) Band Neutrophils % Lymphocytes % (Manual) Monocytes % (Manual) Metamyelocytes % Abs Neuts (Manual) Lymphocytes # (Manual) Monocytes # (Manual) Metamyelocytes # Nucleated RBCs Toxic Granulation Platelet Estimate Large Platelets Plt Morphology Comment RBC Morphology Polychromasia Tear Drop Cells Ovalocytes Acanthocytes (Spur) Schistocytes Smear Tech's Comments PT INR D-Dimer High Sensitivty O2 Saturation ABG pH at Pt Temp ABG pCO2 at Pt Temp ABG pO2 at Pt Temp ABG HCO3 ABG Base Excess (Actual) VBG pH 7.25 L VBG pCO2 49 VBG pO2 35 VBG HCO3 22 VBG O2 Saturation 54.0 VBG Base Excess -4.7 Sodium 144 Potassium 4.3 Chloride 102 Carbon Dioxide 21 L Anion Gap 25 H BUN 34 H Creatinine 2.57 H Estim Creat Clear Calc 31.0 Estimated GFR 25 POC Glucose Random Glucose 160 H Lactic Acid Lactic Acid F/U @ 2Hr Lactic Acid F/U @ 4Hr Calcium 9.7 Phosphorus 9.4 H Magnesium 2.2 Total Bilirubin 3.5 H Direct Bilirubin AST 474 H ALT 332 H Alkaline Phosphatase 29 L Troponin I High Sens > 91961.0 H* D B-Natriuretic Peptide Total Protein 6.0 L Albumin 3.2 L Lipase TSH Urine Color Urine Appearance Urine pH Ur Specific [place] Urine Protein Urine Glucose (UA) Urine Ketones Urine Blood Urine Nitrite Ur Leukocyte Esterase Urine RBC Urine WBC Ur Squamous Epith Cells Urine Bacteria Hyaline Casts Stool Occult Blood Influenza Type A (PCR) Influenza Type B (PCR) RSV RNA Qual (PCR) SARS-CoV-2 RNA (RT-PCR) Blood Type Antibody Screen Crossmatch Microbiology Microbiology Results: Microbiology 01/11/24 17:47 Blood - Venous Blood Culture - Final Progress Note: A&P Assessment and plan (1) Shock: Status: Acute (2) Acute anemia: Status: Acute (3) Acute on chronic hypoxic respiratory failure: Status: Acute Plan Patient?is a 73 Y M with COPD c/b chronic respiratory failure, prior lung cancer, s/p lobectomy, prior throat cancer, s/p radiation, carotid stenosis s/p endarterectomy, and prior episodes of acute blood loss anemia, last episode 09/2022 w/ un-revealing EGD and colonoscopy, presenting to emergency department?w/ dyspnea, found to be profoundly anemic, in shock N: encephalopathic, likely toxic-metabolic; dexmedetomidine gtt as needed CV: shock, likely multi-factorial including initially hemorrhagic, cardiogenic, and septic shock; norepinephrine gtt; POCUS demonstrating decreased LVEF; to follow-up formal echocardiogram R: c/f pulmonary edema in setting of transfusions; COPD c/b chronic respiratory failure; on CPAP GI: maintain high suspicion for GI bleed; appreciate GI recommendations : RUSSEL, likely pre-renal; to monitor renal indices very closely H: anemia, possibly d/t GI bleed; continue transfusions as needed; avoiding chemical DVT prophylaxis; mechanical boots ID: shock; empiric vancomycin, cefepime; to follow-up UA, BCx E: diabetes mellitus, hyperglycemia; insulin sliding scale; hypothyrodism, on levothyroxine P: intermittent agitation Quality Stroke Does the patient have a stroke diagnosis?: No VTE Prior VTE?: No VTE Risk Level:: Medical - moderate - high VTE Device Contraindication: N/A - Device Ordered VTE Drug Contraindication: Treatment Not Tolerated
--- NOTE | 2024-01-12 08:00 | ECG_ITS ---
Test Reason : Troponinemia Blood Pressure : / mmHG Vent. Rate : 100 BPM Atrial Rate : 100 BPM P-R Int : 222 ms QRS Dur : 092 ms QT Int : 352 ms P-R-T Axes : 044 060 076 degrees QTc Int : 454 ms Artifact in tracing Sinus rhythm with 1st degree A-V block with Premature atrial complexes with Aberrant conduction Nonspecific T wave abnormality Abnormal ECG When compared with ECG of 11-JAN-2024 17:50, ST no longer depressed in Lateral leads Referred By: Marlen Martinez Electronically Signed By:OLVIN PITTS
[2024-01-12] MEDS: vancomycin HCL 500 MG in 0.9 % Sodium Chloride 100 ML 110 MG IV (08:25)
[2024-01-12] MEDS: Furosemide 20 MG/2 ML VIAL IVPUSH (08:25)
[2024-01-12] MEDS: Pantoprazole Sodium 40 MG/10 ML VIAL IVPUSH (08:25)
[2024-01-12 08:34] LABS: VBG Base Excess -1.1 mmol/L; VBG HCO3 25 mmol/L (22-26); VBG pCO2 52 mmHg; VBG pH 7.29 (7.32-7.43); VBG pO2 43 mmHg
[2024-01-12 08:35] LABS: Venous Blood Gas Refer to POC result
[2024-01-12] MEDS: Albumin Human 25 % 50 ML 100 ML IV (08:36)
[2024-01-12 08:51] LABS: Lactic Acid 9.2 mmol/L (0.5-2.0)
[2024-01-12 09:28] LABS: Troponin-I High Sensitivity > 60000.0 ng/L (<3.5-35.0)
[2024-01-12] MEDS: Vasopressin 20 UNIT/100 ML INFUS..BTL 12 UNIT IVCONT (09:40)
[2024-01-12 10:28] LABS: Reflex Lactate? Lactic Acid Added
--- NOTE | 2024-01-12 10:37 | P.CNGI_ITS ---
History of Present Illness Data of Consult Service Date: 01/12/24 Requesting physician: Marlen Martinez Primary Care Provider: Dayo Milan NP HPI Reason for consult: anemia 73-year-old male with history of COPD, chronic hypoxic respiratory failure on 4 L home O2, hypothyroidism, peripheral vascular disease, throat cancer s/p radiation complicated by carotid stenosis S/P endarterectomy, who I am seeing for assessment for anemia. Patient initially presented with worsening dsypnea despite continuous oxygen use. He was found to have severe anemia, and multi organ failure PMFSH Past Medical History Medical History Bronchitis Respiratory failure with hypoxia Acute on chronic blood loss anemia Acute kidney injury Hypoxemia COPD (chronic obstructive pulmonary disease) Sepsis Decreased oral intake Lung cancer Throat cancer Claudication in peripheral vascular disease Chronic sinusitis Hypercholesterolemia Family History Family History Father No problems noted. Mother No problems noted. Surgical History Surgical History H/O carotid endarterectomy History of total left knee replacement H/O neck surgery History of carpal tunnel release S/P tonsillectomy History of knee surgery Social History Social History Household Members: Significant Other Housing: Condominium Do you presently have visiting nurse or other home services: No Alcohol intake: never Patient Tobacco Use Status: Former Tobacco user Tobacco use type: Cigarette Second Hand Smoke Exposure: No Use of substances other than those prescribed or required for medical reasons: No Currently Displaying Signs/Symptoms of Drug Intoxication Withdrawal: No Have you been hit, kicked, punched, or otherwise hurt by someone within the past year? If so, by whom?: No Advance Directives: Yes Advance Directives on File: Yes Advance Directives Date on File: 10/01/22 Do you have thoughts of harming others: None Do you have a plan to hurt others: No Plan Recently lost weight without trying: Unsure service: Yes Current occupational status: retired and disabled Current occupation: right handed Meds Allergies Allergy/AdvReac Type Severity Reaction Status Date / Time moxifloxacin Allergy Numbness Verified 09/19/23 13:43 Active Medications: Current Medications Albuterol/Ipratropium (Albuterol/Iprat 2.5/0.5mg 3 Ml Ampul.Neb) 3 ml INHALE RQ4H WHILE AWAKE [facility] Dextrose (Dextrose 50 % 25 Gm/50 Ml Syringe) 25 gm IVPUSH Q15M PRN; Protocol PRN Reason: per Hypoglycemia Standing Ord. Furosemide (Furosemide 20 Mg/2 Ml Vial) 20 mg IVPUSH BID@0900,1800 [facility]; Protocol Last Admin: 01/12/24 08:25 Dose: 20 mg Glucose (Glucose Gel 15 Gm Gel..Gram.) 15 gm PO Q15M PRN; Protocol PRN Reason: per Hypoglycemia Standing Ord. Hydromorphone HCl (Hydromorphone Hcl 0.5 Mg/0.5 Ml Syringe) 0.5 mg IVPUSH Q2H PRN; Protocol PRN Reason: Pain, Severe (Pain Scale 7-10) Last Admin: 01/12/24 08:55 Dose: 0.5 mg Dexmedetomidine HCl (Precedex) 400 mcg in 100 mls @ 0 mls/hr IVCONT .Q0M [facility]; Protocol Norepinephrine Bitartrate (Levophed) 8 mg in 250 mls @ 0 mls/hr IV .Q0M QUINN; Protocol Last Titration: 01/12/24 10:31 Dose: 0 mcg/kg/min, 0.41 mls/hr Sodium Bicarbonate 150 meq/ (Dextrose) 1,000 mls @ 50 mls/hr IV .Q20H [facility] Last Admin: 01/12/24 03:05 Dose: 50 mls/hr Cefepime HCl 2 gm/ Sodium (Chloride) 50 mls @ 100 mls/hr IV Q8H [facility] Last Infusion: 01/12/24 10:05 Dose: Infused Vancomycin HCl 500 mg/ Sodium (Chloride) 110 mls @ 110 mls/hr IV Q12H [facility] Last Infusion: 01/12/24 09:30 Dose: Infused Azithromycin 500 mg/ Sodium (Chloride) 250 mls @ 125 mls/hr IV Q24H [facility] Last Infusion: 01/11/24 23:45 Dose: Infused Vasopressin (Vasostrict) 20 unit in 100 mls @ 12 mls/hr IVCONT .Q8H20M [facility] Last Admin: 01/12/24 09:40 Dose: 0.04 unit/min, 12 mls/hr Insulin Human Lispro (Insulin Lispro 100 Unit/Ml 3 Ml Vial) 0 unit SUBCUT Q6H [facility]; Protocol Last Admin: 01/12/24 06:27 Dose: Not Given Levothyroxine Sodium (Levothyroxine Sodium 100 Mcg/5 Ml Vial) 25 mcg IVPUSH DAILY@0600 [facility] Last Admin: 01/12/24 05:44 Dose: 25 mcg Pantoprazole Sodium (Pantoprazole Sodium 40 Mg/10 Ml Vial) 40 mg IVPUSH BID [facility] Last Admin: 01/12/24 08:25 Dose: 40 mg Pharmacy Consult (Consult Rx Vancomycin Dosing) 1 each MISCELLANE DAILY PRN PRN Reason: Consult order Home Medications Medication Instructions Recorded Confirmed Last Taken Type aspirin 81 mg chewable tablet 81 mg PO DAILY 11/14/20 01/11/24 10/01/22 History apixaban 5 mg tablet 2.5 mg PO BID 10/01/22 01/11/24 10/01/22 History levothyroxine 50 mcg tablet 50 mcg PO DAILY@0600 10/01/22 01/11/24 10/01/22 History (Synthroid) simvastatin 80 mg tablet 40 mg PO DAILY 10/01/22 01/11/24 10/01/22 History cholecalciferol (vitamin D3) 25 25 mcg PO DAILY 04/23/23 01/11/24 Unknown History mcg (1,000 unit) capsule acetaminophen 300 mg-codeine 30 mg 1 tab PO BEDTIME PRN Pain 01/12/24 01/12/24 Unknown History tablet pantoprazole 40 mg tablet,delayed 40 mg PO DAILY@0630 01/12/24 01/12/24 Unknown History release Physical Exam 2 Vital Signs: Vital Signs: Last Vital Signs Temp 99.5 F 01/12/24 10:00 Pulse 86 01/12/24 10:31 Resp 15 01/12/24 10:00 BP 74/44 L 01/12/24 10:31 Pulse Ox 92 01/12/24 10:00 O2 Del Method BiPAP 01/12/24 10:00 O2 Flow Rate 4 01/11/24 12:00 FiO2 75 01/12/24 10:00 BMI result Body Mass Index 25.8 Results Labs 01/12/24 05:08 01/12/24 05:08 Labs: Short CBC 01/11/24 01/11/24 01/11/24 Range/Units 11:05 16:08 22:39 WBC 8.3 13.6 H 28.7 H (4.8-10.8) X10*3/uL Hgb 4.5 L* D 5.4 L* 6.7 L* D (14.0-18.0) g/dl Hct 17.1 L* D 21.0 L* D 24.1 L (42.0-52.0) % Plt Count 251 312 341 (160-400) X10*3/uL 01/12/24 01/12/24 Range/Units 02:05 05:08 WBC 31.2 H* 32.3 H* (4.8-10.8) X10*3/uL Hgb 7.9 L 8.2 L (14.0-18.0) g/dl Hct 28.0 L 28.4 L (42.0-52.0) % Plt Count 338 326 (160-400) X10*3/uL BMP 01/11/24 01/11/24 01/11/24 11:05 16:08 18:26 Sodium 141 141 145 Potassium 4.8 5.0 5.2 H Chloride 107 106 106 Carbon Dioxide 22 10 L* D 7 L* D BUN 22 H 23 H 25 H Creatinine 1.52 H 1.88 H 2.07 H Calcium 10.4 H D 10.8 H 11.6 H D 01/11/24 01/12/24 01/12/24 22:39 02:05 05:08 Sodium 147 H 146 H 144 Potassium 4.1 D 4.5 4.3 Chloride 104 103 102 Carbon Dioxide 19 L 20 L 21 L BUN 29 H 32 H 34 H Creatinine 2.43 H 2.51 H 2.57 H Calcium 10.7 H D 10.1 9.7 Liver Function 01/11/24 01/11/24 01/12/24 Range/Units 11:05 22:39 02:05 Total Bilirubin 0.3 3.0 H 3.7 H (0.0-1.0) mg/dL Direct Bilirubin 0.1 (0.0-0.5) mg/dL AST 13 102 H 220 H (5-37) U/L ALT < 5 16 102 H (0-40) U/L Alkaline Phosphatase 27 L 26 L 29 L (39-117) U/L Albumin 3.5 3.0 L 3.2 L (3.5-5.0) g/dL 01/12/24 Range/Units 05:08 Total Bilirubin 3.5 H (0.0-1.0) mg/dL Direct Bilirubin (0.0-0.5) mg/dL AST 474 H (5-37) U/L ALT 332 H (0-40) U/L Alkaline Phosphatase 29 L (39-117) U/L Albumin 3.2 L (3.5-5.0) g/dL Urine 01/11/24 01/11/24 Range/Units 15:54 18:26 Urine Color Yellow Yellow Urine Appearance Clear Clear Urine pH 5.0 5.0 (5.0-9.0) Ur Specific [place] 1.025 1.015 (1.005-1.025) Urine Protein Negative 30 (1+) H (Neg-Trace) mg/dL Urine Glucose (UA) Negative Negative (Negative) mg/dL Microbiology Microbiology Results: Microbiology 01/11/24 17:47 Blood - Venous Blood Culture - Final Procedures Date of Service Date of Service: 01/12/24
[2024-01-12 11:05] LABS: ~Lactic Acid-LAB USE ONLY 7.3 mmol/L (0.5-2.0)
--- NOTE | 2024-01-12 11:35 | W.MHC.ACPN ---
Advanced Care Planning Note Advanced Care Planning Note Discussed with: family member(s) Time spent (in minutes): 10 Narrative: Mr. Encarnacion developed hypotension. Mr. Encarnacion's and son were present in the room. I stated that I believe Mr. Encarnacion is actively dying. Mr. Encarnacion's son decided to change Mr. Encarnacion's philosophy of care at this time to comfort-focused care. Problems Discussed (1) Shock: (2) Acute anemia: (3) Acute on chronic hypoxic respiratory failure:
[2024-01-12] MEDS: fentaNYL citrate/NS 1,000 MCG/100 ML PLAST..BAG 2.5 MCG IVCONT (11:45)
[2024-01-12] MEDS: Glycopyrrolate 0.2 MG/ML VIAL IVPUSH (11:45)
[2024-01-12] MEDS: Scopolamine 1.5 MG PATCH.TD.3 TRANSDERMA (11:55)
--- NOTE | 2024-01-12 11:56 | PM.DDS ---
Discharge Sum: Prov Provider Primary care physician: Dayo Milan NP Admitting clinician: Marlen Martinez Pronouncing clinician: Marlen Martinez Discharge Sum: Diag PCOD Cause of : Cardiogenic shock Contributing Factors (1) Hemorrhagic shock: (2) Acute on chronic hypoxic respiratory failure: Discharge Sum: Summary Date and Time Date of admission: 01/11/24 17:18 Date of : 01/12/24 Time of : 12:07 Summary Details: Mr. Encarnacion?is a 73 Y M with COPD complicated by chronic respiratory failure, prior lung cancer status post lobectomy, and prior throat cancer status post chemotherapy, radiation, complicated by carotid stenosis on apixaban, as well as prior episodes of acute blood loss anemia, last episode 09/2022, presenting to the emergency department?on 01/11 with dyspnea; in the emergency department, Mr. Encarnacion was found to be in shock with profound anemia and metabolic acidosis; Mr. Encarnacion was admitted to the ICU for ongoing resuscitation; Mr. Encarnacion's ICU course was complicated by multi-system organ failure, specifically cardiac, respiratory, renal, and hepatic failure; on 01/12 AM, Mr. Encarnacion developed acute hypotension despite maximum vasopressors; at that time. Mr. Encarnacion's son and transitioned Mr. Encarnacion to comfort-focused care; Mr. Encarnacion later that day with his family at bedside Additional Data Confirmation of as documented by pronouncing clinician: no pulse, no respirations, no heart sounds and pupils fixed and dilated Family: at bedside Attending physician: Marlen Martinez MD
[2024-01-12 12:43] LABS: Reflex Lactate? 2 Y
--- NOTE | 2024-01-12 13:22 | MHC.CM.PN ---
CM ATTEMPTED TO MEET WITH PT/FAMILY HOWEVER PT HAD PRIOR TO CM ASSESSMENT.
--- NOTE | 2024-01-16 19:28 | PC.NURSE ---
Late entry for TAR: 01/12/24 at 0230 the issued unit [id number] was administered for a total of 285 mL.
--- NOTE | 2024-01-27 07:30 | P.CDIM_ITS ---
PROVIDER RESPONSE TEXT: To clarify, the appropriate diagnosis supported by the clinical indicators: Sepsis with Septic Shock QUERY TEXT: PHYSICIAN'S DOCUMENTATION REQUEST Date of Query: 01/16/2024 07:24 AM EST Patient Name: Daniel Encarnacion Admit Date: 01/11/2024 Dear Marlen Martinez, RETROSPECTIVE QUERY A review of the medical record indicates additional documentation may be needed. Please review below and update the documentation accordingly. Clinical indicators: ICU 01/11 - Shock, likely multifactorial including initially hemorrhagic, cardiogenic and septic shock . Empiric Vancomycin, cefepime; to follow-up UA, BCx, Vasopressor. Multisystem organ failure - cardiac, respiratory, renal, hepatic failure. WBC 31.2 LA 9.2 HR 114 RR 26 Sepsis Systemic manifestations of infection, with 2 or more SIRS criteria which include: Fever > 100.4?F or hypothermia < 96.8?F Leukocytosis - WBC > 12,000 or leukopenia, WBC < 4,000, or > 10% bands Tachycardia- > 90 beats/minute Tachypnea- RR > 20 breaths/minute or PaCO2 < 32mmHg Septic Shock Severe sepsis with associated with circulatory failure, evidenced by hypotension and hypoperfusion Based on the above information is the diagnosis of Sepsis with septic shock a possible, probable, lora pected etc. PDX in the note (Discharge summary): Sepsis Sepsis with Septic Shock Other Other (explain) Clinically unable to determine (explain) Thank you, Divya Sherman, CCS, CDIS Use of terms such as suspected, likely, concern for, or probable (associated with a specific diagnosi s that is being evaluated, monitored, or treated as if it exists) are acceptable and can be coded in the inpatient se tting, when documented at the time of discharge. Please use your independent medical judgment in providing your response. THIS QUERY IS PART OF THE PERMANENT MEDICAL RECORD
== END 2024-01-12 12:07 | disposition expired | DRG 871 ==
LOC: HO.ED 17:25 → HO.EDOVER 17:34 → HO.ICU 17:38
PROVIDERS: Physician Assistant Medical; Admitting Provider Internal Medicine Critical Care Medicine; Emergency Provider Emergency Medicine; PCP Nurse Practitioner Family; Visit Provider Internal Medicine Critical Care Medicine
DX: A41.9 Sepsis, unspecified organism (principal); G92.8 Other toxic encephalopathy; J96.21 Acute and chronic respiratory failure with hypoxia; R65.21 Severe sepsis with septic shock; E87.4 Mixed disorder of acid-base balance; N17.9 Acute kidney failure, unspecified; K92.2 Gastrointestinal hemorrhage, unspecified; Z66 Do not resuscitate; E11.65 Type 2 diabetes mellitus with hyperglycemia; Z20.822 Contact with and (suspected) exposure to COVID-19; R57.0 Cardiogenic shock; Z51.5 Encounter for palliative care; J44.9 Chronic obstructive pulmonary disease, unspecified; I50.9 Heart failure, unspecified; R57.8 Other shock; K72.90 Hepatic failure, unspecified without coma; Z99.81 Dependence on supplemental oxygen; Z85.118 Personal history of other malignant neoplasm of bronchus and lung; Z85.819 Personal history of malignant neoplasm of unspecified site of lip, oral cavity, and pharynx; Z92.3 Personal history of irradiation; Z90.2 Acquired absence of lung [part of]; Z87.891 Personal history of nicotine dependence; Z79.01 Long term (current) use of anticoagulants; Z79.82 Long term (current) use of aspirin; Z79.890 Hormone replacement therapy; Z79.899 Other long term (current) drug therapy
CPT/HCPCS: 0241U; 36415; 71045; 73030; 80048; 80053; 80076; 81001; 81003; 82272; 82803; 82947; 83605; 83690; 83735; 83880; 84100; 84443; 84484; 85007; 85025; 85027; 85379; 85610; 86850; 86900; 86901; 86923; 87040; 93005; 93971; 94640; 94660; 99285; C1758; C9113; J0456; J0692; J1170; J1596; J1940; J2543; J2598; J2704; J2930; J3010; J3370; P9016; P9047

== ENCOUNTER → 2024-01-11 10:04 | Outpatient (BNV) | payer OTHER, SELFPAY | PROVIDERS: Emergency Provider Emergency Medicine; PCP Nurse Practitioner Family; Visit Provider Internal Medicine Critical Care Medicine | DX: R57.9 Shock, unspecified (principal); D64.9 Anemia, unspecified; J96.21 Acute and chronic respiratory failure with hypoxia; R57.8 Other shock | CPT/HCPCS: 36566; 99223; 99238; 99497; 99499 ==

== ENCOUNTER → 2024-01-11 11:55 | Outpatient (BNV) | payer OTHER, SELFPAY | PROVIDERS: Admitting Provider Internal Medicine Critical Care Medicine; Emergency Provider Emergency Medicine; PCP Nurse Practitioner Family; Visit Provider Internal Medicine Cardiovascular Disease | DX: R94.31 Abnormal electrocardiogram [ECG] [EKG] (principal) | CPT/HCPCS: 93010 ==

== ENCOUNTER 2024-01-11 17:18 | Outpatient (BNV) | payer OTHER, SELFPAY | END 2024-01-12 08:00 | PROVIDERS: Admitting Provider Internal Medicine Critical Care Medicine; Emergency Provider Emergency Medicine; PCP Nurse Practitioner Family; Visit Provider Internal Medicine | DX: I44.0 Atrioventricular block, first degree (principal); R94.31 Abnormal electrocardiogram [ECG] [EKG] | CPT/HCPCS: 93010 ==